=== PATIENT | female | born 1940 | race Caucasian/White ===

== ENCOUNTER → 2016-11-01 | Outpatient (CLI) | payer MEDICARE, BC ==
[2016-09-29 12:20] VITALS: BP 118/69
[~2016-11-01] MED LIST: ALLO100T PO; AMLO5TAB2 PO; ESOM40CA PO; GABA-585 PO; HYDR4TAB PO; HYDR50TA6 PO; LEVO75TA5 PO; METO100T11 PO; MIRT15TA PO; NITR0.4T SL; NITR1PAT11 TD; POTA20TA82 PO; THEO400T2 PO
--- NOTE | 2016-11-01 10:55 | RAD ---
Indication follow-up. History of lung malignancy.] Noncontrast imaging through the chest was performed and is compared to an examination 08/15/2016. Imaging through the upper abdomen is unremarkable. Coronary artery calcification is noted. There is a small right pleural effusion. Underlying emphysematous changes are noted. Significant volume loss in the right upper lobe persists similar to the previous exam. Right suprahilar mass or dense consolidation persists and appears similar. There is no evidence of distant metastatic disease. Degenerative changes are noted in the thoracic spine. IMPRESSION: Diminished aeration of the right upper lobe with an associated dense area of atelectasis or suprahilar soft tissue mass persists and appears similar to the previous exam. A significant change in the appearance of the chest relative to the prior exam is not seen PQRS Compliance Statement: One or more of the following individualized dose reduction techniques were utilized for this examination: 1. Automated exposure control 2. Adjustment of the mA and/or kV according to patient size 3. Use of iterative reconstruction technique
== END | disposition home or self-care (01) ==
LOC: CT 10:22
PROVIDERS: ATTEND Radiology Radiation Oncology
DX: C34.90 Malignant neoplasm of unspecified part of unspecified bronchus or lung (principal); Z85.118 Personal history of other malignant neoplasm of bronchus and lung; J90 Pleural effusion, not elsewhere classified
CPT/HCPCS: 71250

== ENCOUNTER 2016-11-02 14:23 | Inpatient (IN) | payer MEDICARE, BC ==
[~2016-11-02] VITALS: Ht 147.3 cm; Wt 44.0 kg
[~2016-11-02 14:23] MED LIST changes: -MIRT15TA PO
[2016-11-02] MEDS ORDERED: MIRT15TA PO (15:53)
[2016-11-02 16:51] LABS: BASO % 1 % (0-3); EOS % 2 % (0-3); HEMATOCRIT 32.8 % (36.0-47.0); HEMOGLOBIN 10.8 g/dL (12.0-15.5); LYMPH # 0.7 x10^3/uL (1.0-4.8); LYMPH % 12 % (24-48); MEAN CORPUSCULAR HEMOGLOBIN 35 pg (25-35); MEAN CORPUSCULAR HGB CONC 33 g/dL (31-37); MEAN CORPUSCULAR VOLUME 104 fL (79-100); MONO % 9 % (0-9); NEUT % 76 % (31-73); PLATELET COUNT 172 x10^3/uL (140-400); RED BLOOD COUNT 3.14 x10^6/uL (3.50-5.40); RED CELL DISTRIBUTION WIDTH 13.8 % (11.5-14.5); WHITE BLOOD COUNT 5.8 x10^3/uL (4.0-11.0)
[2016-11-02 17:06] LABS: ALBUMIN 3.6 g/dL (3.4-5.0); ALBUMIN/GLOBULIN RATIO 0.9 (1.0-1.7); CALCIUM 9.1 mg/dL (8.5-10.1); CREATININE 1.3 mg/dL (0.6-1.0); GFR 39.6; POTASSIUM 3.7 mmol/L (3.5-5.1); TOTAL BILIRUBIN 0.6 mg/dL (0.2-1.0); TOTAL PROTEIN 7.6 g/dL (6.4-8.2)
[2016-11-02] MEDS ORDERED: 0.9 % SODIUM CHLORIDE 10 ML DISP.SYRIN. IV PRN (18:45)
[2016-11-02] MEDS: POTASSIUM CL 20MEQ-0.45% NACL 1,000 ML IV SCH (19:15)
[2016-11-02 19:24] LABS: % SAT IRON 17 % (15-34); IRON,SERUM 40 ug/dL (50-170)
[2016-11-02 19:47] VITALS: BP 121/74
[2016-11-02] MEDS ORDERED: HYDROCODONE/APAP 5/325MG TABLET. PO PRN (20:45)
--- NOTE | 2016-11-02 21:10 | HP ---
ADMIT DATE: 11/02/2016 CHIEF COMPLAINT: Myxedema. HISTORY OF PRESENT ILLNESS: The patient is a 76-year-old woman who completed concurrent chemoradiation for stage 3 lung cancer in June of this year. She was presented for scheduled followup with Dr. Lopez today. On examination, the patient was quite confused. Unable to walk, was actually carried in by her . On further questioning, it became apparent that the patient had been seen by her primary care physician, Dr. Gray, who had obtained a TSH in September which was resulted at 172.8. The patient apparently had stopped taking all her medications after her dog in the late fall. The patient is therefore direct admitted to the hospital for further monitoring and evaluation as well as treatment. The daughter at bedside relates that the patient actually has not been eating in the past three days or so, barely drinking. Has been quite confused for many days now. She is not aware that the patient actually had a bowel movement in a while. The patient chronically complains of severe pain all over. The patient herself is unable to contribute to her history at all. PAST MEDICAL HISTORY: Hypothyroidism; nonsmall cell lung carcinoma stage 3, stable findings per repeat CT, status post concurrent chemoradiation, completed in June; depression; COPD; heart disease, followed by Dr. Arciniega. FAMILY HISTORY: Multiple family members with heart disease. SOCIAL HISTORY: Lives with her . Quit smoking two years ago. No toxic habits. ALLERGIES: No known drug allergies. MEDICATIONS: MAR reconciled with home medications. LABORATORY DATA: CBC with WBC of 5.8, hemoglobin 10.8 with an MCV of 104 and platelets of 172. Chemistries: BUN and creatinine of 29 and 1.3, actually better than her baseline creatinine at about 1.5-1.6. Electrolytes within normal limits. LFTs within normal, albumin at 3.6. CT of the chest on 11/01/2016 shows diminished aeration in the right upper lobe with associated dense area of atelectasis, a suprahilar soft tissue mass persisting, appears similar to previous exam. ASSESSMENT AND PLAN: The patient is a 76-year-old woman presenting with myxedema close to coma. She has been restarted on her thyroid medication at 75 mcg. Will evaluate for other end-organ damage including cardiac. Echo has been ordered. Dr. Arciniega will be consulted. For suspected dehydration, we will replete with IV fluids. The patient actually ate fairly well at supper here. Daughter was surprised. For her depression, Remeron will be continued. The patient has history of gout as well as osteoarthritis. home meds will be continued. Patient has macrocytic anemia, which is probably secondary to myxedema. Obtain Vitamin B12 and folate levels to rule out vitamin deficiency. SHAILESH LEIVA MD DR: KEATON/veda JOB#: [id number] / [id number] MONICA Muniz JAY MD MTDD
[2016-11-02] MEDS: GABAPENTIN 100 MG CAPSULE. PO SCH (21:51)
[2016-11-02] MEDS: HYDROMORPHONE 4 MG TABLET. PO PRN (21:51)
[2016-11-02] MEDS: MIRTAZAPINE 15 MG TABLET PO SCH (21:52)
[2016-11-02] MEDS: THEOPHYLLINE 200 MG PO SCH (21:52)
[2016-11-02 23:28] VITALS: BP 146/87
[2016-11-03] VITALS (7 sets, daily range): BP systolic 103–132; BP diastolic 65–90
[2016-11-03 04:54] LABS: BASO # 0.1 x10^3/uL (0.0-0.2); BASO % 1 % (0-3); EOS % 2 % (0-3); HEMATOCRIT 32.1 % (36.0-47.0); HEMOGLOBIN 10.4 g/dL (12.0-15.5); LYMPH # 1.1 x10^3/uL (1.0-4.8); LYMPH % 17 % (24-48); MEAN CORPUSCULAR HEMOGLOBIN 34 pg (25-35); MEAN CORPUSCULAR HGB CONC 33 g/dL (31-37); MEAN CORPUSCULAR VOLUME 105 fL (79-100); MONO % 10 % (0-9); NEUT % 70 % (31-73); PLATELET COUNT 172 x10^3/uL (140-400); RED BLOOD COUNT 3.05 x10^6/uL (3.50-5.40); RED CELL DISTRIBUTION WIDTH 13.5 % (11.5-14.5); WHITE BLOOD COUNT 6.7 x10^3/uL (4.0-11.0)
[2016-11-03] MEDS: POTASSIUM CL 20MEQ-0.45% NACL 1,000 ML IV SCH ×2 (05:15→20:07)
[2016-11-03 05:23] LABS: CALCIUM 8.6 mg/dL (8.5-10.1); CREATININE 1.3 mg/dL (0.6-1.0); GFR 39.6; POTASSIUM 3.7 mmol/L (3.5-5.1)
[2016-11-03] MEDS: LEVOTHYROXINE 75 MCG TABLET PO SCH ×2 (06:34→10:10)
[2016-11-03] MEDS: THEOPHYLLINE 200 MG PO SCH (10:09)
[2016-11-03] MEDS: ALLOPURINOL 100 MG TABLET. PO SCH (10:09)
[2016-11-03] MEDS: PANTOPRAZOLE 40 MG TABLET. PO SCH (10:10)
[2016-11-03] MEDS: GABAPENTIN 100 MG CAPSULE. PO SCH ×2 (10:10→21:00)
[2016-11-03] MEDS: HYDROCHLOROTHIAZIDE 25 MG TABLET PO SCH (10:10)
[2016-11-03] MEDS: AMLODIPINE BESYLATE 5 MG TABLET PO SCH (10:10)
[2016-11-03] MEDS: HYDROMORPHONE 4 MG TABLET. PO PRN ×2 (10:16→14:49)
--- NOTE | 2016-11-03 10:48 | PDOC2 ---
CONSULT Date of Consult Date of Consult DATE: 11/03/16 TIME: 10:19 Reason for Consult Reason for Consult: Evaluate for cardiac end organ damage from myxedema Referring Physician Referring Physician: Bessie Arcos MD Identification/Chief Complaint Chief Complaint Myxedema Coma History of Present Illness Reason for Visit: Patient is a 76 year old female with Hypothyroidism, stage 3 NSC Lung Cancer s/ p concurrent chemo/radiation completed in June, COPD, depression and Heart disease that presents after progressively worsening confusion and gait instability for 3 days. She was noted to have a TSH of 172.8 in September 2016 and reports she stopped taking her Synthroid after her dog passed in late fall. She denies any angina or chest discomfort, but does report some mild dyspnea, occasional lightheadedness, and excessive somnolence up to 20 hours a day. Family states she is markedly improved today and her mental status is near baseline, but still has some transient confusion and trouble finding words. Her only complaint today is pain where her portacath is located. Family also reports poor appetite for the past 3 weeks, but nursing reports she ate her entire meal last night. She denies any dyspnea today. Past Medical History Cardiovascular: CAD Pulmonary: COPD Heme/Onc: Cancer (Non Small Cell Lung Cancer s/p concurrent Chemo/radiation completed in June) Psych: Depression Endocrine: Hyperthyroidism Current Problem List Problem List Problems Medical Problems: (1) Myxedema coma Status: Acute Current Medications Current Medications Current Medications Sodium Chloride 3 ml 3 ml PRN DAILY PRN IV AFTER MEDS AND BLOOD DRAWS; Start at 18:45 Potassium Chloride/Sodium Chloride (KCl 20 Meq-0.45% Nacl) 1,000 ml @ 100 mls/ hr Q10H IV Last administered on 11/02/16 19:15; Start 11/02/16 at 19:15 Acetaminophen (Tylenol) 650 mg PRN Q6HRS PRN PO MILD PAIN / TEMP; Start at 18:45 Allopurinol (Zyloprim) 100 mg DAILY PO Last administered on 11/03/16 10:09; Start 11/03/16 at 09:00 Amlodipine Besylate (Norvasc) 5 mg DAILY PO Last administered on 11/03/16 10:10 ; Start 11/03/16 at 09:00 Gabapentin (Neurontin) 100 mg BID PO Last administered on 11/03/16 10:10; Start 11/02/16 at 21:00 Levothyroxine Sodium (Synthroid) 75 mcg DAILY07 PO Last administered on 10:10; Start 11/03/16 at 07:00 Mirtazapine (Remeron) 15 mg QHS PO Last administered on 11/02/16 21:52; Start 11/02/16 at 21:00 Pantoprazole Sodium (Protonix) 40 mg DAILYAC PO Last administered on 11/03/16 10:10; Start 11/03/16 at 07:30 Hydrochlorothiazide (Hydrodiuril) 25 mg DAILY PO Last administered on 11/03/16 10:10; Start 11/03/16 at 09:00 Theophylline (Theodur) 200 mg BID PO Last administered on 11/03/16 10:09; Start 11/02/16 at 21:00 Acetaminophen/ Hydrocodone Bitart (Lortab 5/325) 1 tab PRN Q6HRS PRN PO PAIN; Start 11/02/16 at 20:45; Status Cancel Hydromorphone HCl (Dilaudid) 4 mg PRN Q4HRS PRN PO PAIN Last administered on 10:16; Start 11/02/16 at 21:45 Active Scripts Active Reported Remeron (Mirtazapine) 15 Mg Tablet 1 Tab PO QHS Theophylline (Theophylline Anhydrous) 400 Mg Tablet.er 200 Mg PO TID Potassium Chloride 20 Meq Tablet.er 20 Meq PO BID Nexium Capsule (Esomeprazole Magnesium) 40 Mg Capsule.dr 1 Cap PO DAILY Levothyroxine Sodium 75 Mcg Tablet 1 Tab PO DAILY Hydromorphone Hcl 4 Mg Tablet 1 Tab PO QID Hydrochlorothiazide Tablet (Hydrochlorothiazide) 50 Mg Tablet 25 Mg PO DAILY Gabapentin 100 Mg Capsule 100 Mg PO BID Amlodipine Besylate 5 Mg Tablet 5 Mg PO DAILY Allopurinol 100 Mg Tablet 1 Tab PO BID Allergies Allergies: Coded Allergies: aspirin (Verified Allergy, Intermediate, 05/08/16) codeine (Verified Allergy, Intermediate, 05/08/16) methocarbamol (Verified Allergy, Intermediate, 05/08/16) morphine (Verified Allergy, Intermediate, 05/08/16) Morphine Sulfate ER 15 mg oxycodone (Verified Allergy, Intermediate, 05/08/16) sulfamethoxazole (Verified Allergy, Intermediate, 05/08/16) tramadol (Verified Allergy, Intermediate, 05/08/16) trimethoprim (Verified Allergy, Intermediate, 05/08/16) ROS Genitourinary: YES , YES , YES , YES , YES , YES , YES Physical Exam General: Alert, Cooperative HEENT: Atraumatic, PERRLA, Mucous membr. moist/pink, Other (No JVD) Lungs: Clear to auscultation, Normal air movement Heart: Regular rate, Normal S1, Normal S2, No murmurs Extremities: No clubbing, No cyanosis, No edema, Other (Lower extremities tender to palpation) Psych/Mental Status: Other (mild confusion and trouble finding words) Vitals VITALS Vital Signs Date Time Temp Pulse Resp B/P Pulse Ox O2 Delivery O2 Flow Rate FiO2 11/03/16 10:10 99 129/90 11/03/16 07:10 97.7 16 96 Room Air 97.7 Labs Labs Laboratory Tests Test 11/02/16 16:40 11/03/16 04:45 White Blood Count 5.8x10^3/uL (4.0-11.0) 6.7x10^3/uL (4.0-11.0) Red Blood Count 3.14x10^6/uL (3.50-5.40) 3.05x10^6/uL (3.50-5.40) Hemoglobin 10.8g/dL (12.0-15.5) 10.4g/dL (12.0-15.5) Hematocrit 32.8% (36.0-47.0) 32.1% (36.0-47.0) Mean Corpuscular Volume 104fL (79-100) 105fL (79-100) Mean Corpuscular Hemoglobin 35pg (25-35) 34pg (25-35) Mean Corpuscular Hemoglobin Concent 33g/dL (31-37) 33g/dL (31-37) Red Cell Distribution Width 13.8% (11.5-14.5) 13.5% (11.5-14.5) Platelet Count 172x10^3/uL (140-400) 172x10^3/uL (140-400) Neutrophils (%) (Auto) 76% (31-73) 70% (31-73) Lymphocytes (%) (Auto) 12% (24-48) 17% (24-48) Monocytes (%) (Auto) 9% (0-9) 10% (0-9) Eosinophils (%) (Auto) 2% (0-3) 2% (0-3) Basophils (%) (Auto) 1% (0-3) 1% (0-3) Neutrophils # (Auto) 4.4x10^3uL (1.8-7.7) 4.7x10^3uL (1.8-7.7) Lymphocytes # (Auto) 0.7x10^3/uL (1.0-4.8) 1.1x10^3/uL (1.0-4.8) Monocytes # (Auto) 0.5x10^3/uL (0.0-1.1) 0.7x10^3/uL (0.0-1.1) Eosinophils # (Auto) 0.1x10^3/uL (0.0-0.7) 0.2x10^3/uL (0.0-0.7) Basophils # (Auto) 0.0x10^3/uL (0.0-0.2) 0.1x10^3/uL (0.0-0.2) Sodium Level 139mmol/L (136-145) 141mmol/L (136-145) Potassium Level 3.7mmol/L (3.5-5.1) 3.7mmol/L (3.5-5.1) Chloride Level 101mmol/L (98-107) 102mmol/L (98-107) Carbon Dioxide Level 28mmol/L (21-32) 27mmol/L (21-32) Anion Gap 10 (6-14) 12 (6-14) Blood Urea Nitrogen 29mg/dL (7-20) 29mg/dL (7-20) Creatinine 1.3mg/dL (0.6-1.0) 1.3mg/dL (0.6-1.0) Estimated GFR (Cockcroft-Gault) 39.6 39.6 BUN/Creatinine Ratio 22 (6-20) Glucose Level 84mg/dL (70-99) 68mg/dL (70-99) Calcium Level 9.1mg/dL (8.5-10.1) 8.6mg/dL (8.5-10.1) Iron Level 40ug/dL (50-170) Total Iron Binding Capacity 239ug/dL (250-450) Iron Saturation 17% (15-34) Total Bilirubin 0.6mg/dL (0.2-1.0) Aspartate Amino Transf (AST/SGOT) 8U/L (15-37) Alanine Aminotransferase (ALT/SGPT) 13U/L (14-59) Alkaline Phosphatase 72U/L (46-116) Total Protein 7.6g/dL (6.4-8.2) Albumin 3.6g/dL (3.4-5.0) Albumin/Globulin Ratio 0.9 (1.0-1.7) Laboratory Tests Test 11/02/16 16:40 11/03/16 04:45 White Blood Count 5.8x10^3/uL (4.0-11.0) 6.7x10^3/uL (4.0-11.0) Red Blood Count 3.14x10^6/uL (3.50-5.40) 3.05x10^6/uL (3.50-5.40) Hemoglobin 10.8g/dL (12.0-15.5) 10.4g/dL (12.0-15.5) Hematocrit 32.8% (36.0-47.0) 32.1% (36.0-47.0) Mean Corpuscular Volume 104fL (79-100) 105fL (79-100) Mean Corpuscular Hemoglobin 35pg (25-35) 34pg (25-35) Mean Corpuscular Hemoglobin Concent 33g/dL (31-37) 33g/dL (31-37) Red Cell Distribution Width 13.8% (11.5-14.5) 13.5% (11.5-14.5) Platelet Count 172x10^3/uL (140-400) 172x10^3/uL (140-400) Neutrophils (%) (Auto) 76% (31-73) 70% (31-73) Lymphocytes (%) (Auto) 12% (24-48) 17% (24-48) Monocytes (%) (Auto) 9% (0-9) 10% (0-9) Eosinophils (%) (Auto) 2% (0-3) 2% (0-3) Basophils (%) (Auto) 1% (0-3) 1% (0-3) Neutrophils # (Auto) 4.4x10^3uL (1.8-7.7) 4.7x10^3uL (1.8-7.7) Lymphocytes # (Auto) 0.7x10^3/uL (1.0-4.8) 1.1x10^3/uL (1.0-4.8) Monocytes # (Auto) 0.5x10^3/uL (0.0-1.1) 0.7x10^3/uL (0.0-1.1) Eosinophils # (Auto) 0.1x10^3/uL (0.0-0.7) 0.2x10^3/uL (0.0-0.7) Basophils # (Auto) 0.0x10^3/uL (0.0-0.2) 0.1x10^3/uL (0.0-0.2) Sodium Level 139mmol/L (136-145) 141mmol/L (136-145) Potassium Level 3.7mmol/L (3.5-5.1) 3.7mmol/L (3.5-5.1) Chloride Level 101mmol/L (98-107) 102mmol/L (98-107) Carbon Dioxide Level 28mmol/L (21-32) 27mmol/L (21-32) Anion Gap 10 (6-14) 12 (6-14) Blood Urea Nitrogen 29mg/dL (7-20) 29mg/dL (7-20) Creatinine 1.3mg/dL (0.6-1.0) 1.3mg/dL (0.6-1.0) Estimated GFR (Cockcroft-Gault) 39.6 39.6 BUN/Creatinine Ratio 22 (6-20) Glucose Level 84mg/dL (70-99) 68mg/dL (70-99) Calcium Level 9.1mg/dL (8.5-10.1) 8.6mg/dL (8.5-10.1) Iron Level 40ug/dL (50-170) Total Iron Binding Capacity 239ug/dL (250-450) Iron Saturation 17% (15-34) Total Bilirubin 0.6mg/dL (0.2-1.0) Aspartate Amino Transf (AST/SGOT) 8U/L (15-37) Alanine Aminotransferase (ALT/SGPT) 13U/L (14-59) Alkaline Phosphatase 72U/L (46-116) Total Protein 7.6g/dL (6.4-8.2) Albumin 3.6g/dL (3.4-5.0) Albumin/Globulin Ratio 0.9 (1.0-1.7) Assessment/Plan Assessment/Plan Ms. Chauhan is a 76 year old female with a history of hypothyroidism, NSCLC s/p radition/chemo, CAD, COPD and depression who presents with 3 days of progressively worsened altered mental status and gait instability. My clinical impression is this is Altered Mental Status 2/2 to hypothyroidism as patient has not been fully obtunded and has not had any significant edema. She is currently compensating from a cardiac standpoint. I agree with the current plan of care. I recommend obtaining CT head w/ contrast to rule out metastases, ESR, T3 and free T4 Echo planned for today, will follow up Thank you very much for this consult, I am happy to participate in this patients care MYLES MACK MD Nov 03, 2016 10:48
--- NOTE | 2016-11-03 13:15 | RAD ---
Indication change in mental status. Confusion. Fall twice 3 days ago. Noncontrast images of the head were obtained and are compared to an examination 6 years earlier. The calvarium appears unremarkable and the visualized paranasal sinuses appear normal. There is no subdural or epidural hematoma. No mass or midline shift is seen. There is no hemorrhage. IMPRESSION: No acute or significant finding seen on noncontrast CT images of the head PQRS Compliance Statement: One or more of the following individualized dose reduction techniques were utilized for this examination: 1. Automated exposure control 2. Adjustment of the mA and/or kV according to patient size 3. Use of iterative reconstruction technique
--- NOTE | 2016-11-03 13:27 | RAD ---
Indication fall 2 days previously. Pain. Evaluate for potential rib fractures. An AP view of the chest was obtained as well as individual single views 2 the right and left ribs. Known pathology in the right hemithorax, referenced on the CT examination 11/01/2016, is reproduced. The heart and pulmonary vessels are within normal limits. Significant pleural fluid is not seen and there is no pneumothorax. Right Port-A-Cath is noted. Scoliosis is noted There is a fracture, which appears recent or acute, associated with the left ninth rib posterior laterally. There is irregularity associated with the 10th rib which has a chronic appearance and is probably reflective of old, healed, fracture. Additional finding associated with left ribs is not seen. No significant right rib anomaly is seen. IMPRESSION: Recent or acute fracture associated with the left ninth rib
--- NOTE | 2016-11-03 14:21 | PDOC ---
PROGRESS NOTES Chief Complaint Chief Complaint AMS, Weakness 1. Ams metabolic encephalopathy with severe hypothyroidism, low b12, lung Ca 2 Hypothyroidism; 3. nonsmall cell lung carcinoma stage 3 post chemo and RT 4. H/O cad 5. copd 6. depression 7. CKD 3 8. normacytic anemia 9./ acute traumatic left rib fx plan: 1. card, NEuro consult 2. cont home meds , repeat TSH, T4 3. ADD VITB12 VITD pending 4. PTOT 5 ortho consult 6. pain control dvt ppx Head CT neg for mets, doubt it, defer to neuro if need MRI FAMILY refuse HOSPICE consult , refuse SNF History of Present Illness History of Present Illness very weak more awake as per family, but respond very slow to me pt not taking meds for a while, "wants to " as per nurse, but family refuse hospice Vitals Vitals Vital Signs Date Time Temp Pulse Resp B/P Pulse Ox O2 Delivery O2 Flow Rate FiO2 11/03/16 11:03 97.8 106 16 130/90 96 Room Air 97.8 Physical Exam Physical Exam aox2, person, place General: Alert, Cooperative Heart: Regular rate, Normal S1, Normal S2, No murmurs Lungs: Clear Abdomen: Normal bowel sounds, Soft, Other (left abd tenderness) Extremities: No clubbing, No cyanosis, No edema, Other (Lower extremities tender to palpation) Labs LABS Laboratory Tests Test 11/02/16 16:40 11/03/16 04:45 White Blood Count 5.8x10^3/uL (4.0-11.0) 6.7x10^3/uL (4.0-11.0) Red Blood Count 3.14x10^6/uL (3.50-5.40) 3.05x10^6/uL (3.50-5.40) Hemoglobin 10.8g/dL (12.0-15.5) 10.4g/dL (12.0-15.5) Hematocrit 32.8% (36.0-47.0) 32.1% (36.0-47.0) Mean Corpuscular Volume 104fL (79-100) 105fL (79-100) Mean Corpuscular Hemoglobin 35pg (25-35) 34pg (25-35) Mean Corpuscular Hemoglobin Concent 33g/dL (31-37) 33g/dL (31-37) Red Cell Distribution Width 13.8% (11.5-14.5) 13.5% (11.5-14.5) Platelet Count 172x10^3/uL (140-400) 172x10^3/uL (140-400) Neutrophils (%) (Auto) 76% (31-73) 70% (31-73) Lymphocytes (%) (Auto) 12% (24-48) 17% (24-48) Monocytes (%) (Auto) 9% (0-9) 10% (0-9) Eosinophils (%) (Auto) 2% (0-3) 2% (0-3) Basophils (%) (Auto) 1% (0-3) 1% (0-3) Neutrophils # (Auto) 4.4x10^3uL (1.8-7.7) 4.7x10^3uL (1.8-7.7) Lymphocytes # (Auto) 0.7x10^3/uL (1.0-4.8) 1.1x10^3/uL (1.0-4.8) Monocytes # (Auto) 0.5x10^3/uL (0.0-1.1) 0.7x10^3/uL (0.0-1.1) Eosinophils # (Auto) 0.1x10^3/uL (0.0-0.7) 0.2x10^3/uL (0.0-0.7) Basophils # (Auto) 0.0x10^3/uL (0.0-0.2) 0.1x10^3/uL (0.0-0.2) Sodium Level 139mmol/L (136-145) 141mmol/L (136-145) Potassium Level 3.7mmol/L (3.5-5.1) 3.7mmol/L (3.5-5.1) Chloride Level 101mmol/L (98-107) 102mmol/L (98-107) Carbon Dioxide Level 28mmol/L (21-32) 27mmol/L (21-32) Anion Gap 10 (6-14) 12 (6-14) Blood Urea Nitrogen 29mg/dL (7-20) 29mg/dL (7-20) Creatinine 1.3mg/dL (0.6-1.0) 1.3mg/dL (0.6-1.0) Estimated GFR (Cockcroft-Gault) 39.6 39.6 BUN/Creatinine Ratio 22 (6-20) Glucose Level 84mg/dL (70-99) 68mg/dL (70-99) Calcium Level 9.1mg/dL (8.5-10.1) 8.6mg/dL (8.5-10.1) Iron Level 40ug/dL (50-170) Total Iron Binding Capacity 239ug/dL (250-450) Iron Saturation 17% (15-34) Total Bilirubin 0.6mg/dL (0.2-1.0) Aspartate Amino Transf (AST/SGOT) 8U/L (15-37) Alanine Aminotransferase (ALT/SGPT) 13U/L (14-59) Alkaline Phosphatase 72U/L (46-116) Total Protein 7.6g/dL (6.4-8.2) Albumin 3.6g/dL (3.4-5.0) Albumin/Globulin Ratio 0.9 (1.0-1.7) Vitamin B12 Level 346pg/mL (211-946) Folic Acid (LAB) 18.0ng/mL (>3.0) Review of Systems Review of Systems no fever, chills, sob or chest pain Assessment and Plan Assessmemt and Plan Problems Medical Problems: (1) Myxedema coma Status: Acute Problems: Comment Review of Relevant I have reviewed the following items shirin (where applicable) has been applied. Labs Laboratory Tests Test 11/02/16 16:40 11/03/16 04:45 White Blood Count 5.8x10^3/uL (4.0-11.0) 6.7x10^3/uL (4.0-11.0) Red Blood Count 3.14x10^6/uL (3.50-5.40) 3.05x10^6/uL (3.50-5.40) Hemoglobin 10.8g/dL (12.0-15.5) 10.4g/dL (12.0-15.5) Hematocrit 32.8% (36.0-47.0) 32.1% (36.0-47.0) Mean Corpuscular Volume 104fL (79-100) 105fL (79-100) Mean Corpuscular Hemoglobin 35pg (25-35) 34pg (25-35) Mean Corpuscular Hemoglobin Concent 33g/dL (31-37) 33g/dL (31-37) Red Cell Distribution Width 13.8% (11.5-14.5) 13.5% (11.5-14.5) Platelet Count 172x10^3/uL (140-400) 172x10^3/uL (140-400) Neutrophils (%) (Auto) 76% (31-73) 70% (31-73) Lymphocytes (%) (Auto) 12% (24-48) 17% (24-48) Monocytes (%) (Auto) 9% (0-9) 10% (0-9) Eosinophils (%) (Auto) 2% (0-3) 2% (0-3) Basophils (%) (Auto) 1% (0-3) 1% (0-3) Neutrophils # (Auto) 4.4x10^3uL (1.8-7.7) 4.7x10^3uL (1.8-7.7) Lymphocytes # (Auto) 0.7x10^3/uL (1.0-4.8) 1.1x10^3/uL (1.0-4.8) Monocytes # (Auto) 0.5x10^3/uL (0.0-1.1) 0.7x10^3/uL (0.0-1.1) Eosinophils # (Auto) 0.1x10^3/uL (0.0-0.7) 0.2x10^3/uL (0.0-0.7) Basophils # (Auto) 0.0x10^3/uL (0.0-0.2) 0.1x10^3/uL (0.0-0.2) Sodium Level 139mmol/L (136-145) 141mmol/L (136-145) Potassium Level 3.7mmol/L (3.5-5.1) 3.7mmol/L (3.5-5.1) Chloride Level 101mmol/L (98-107) 102mmol/L (98-107) Carbon Dioxide Level 28mmol/L (21-32) 27mmol/L (21-32) Anion Gap 10 (6-14) 12 (6-14) Blood Urea Nitrogen 29mg/dL (7-20) 29mg/dL (7-20) Creatinine 1.3mg/dL (0.6-1.0) 1.3mg/dL (0.6-1.0) Estimated GFR (Cockcroft-Gault) 39.6 39.6 BUN/Creatinine Ratio 22 (6-20) Glucose Level 84mg/dL (70-99) 68mg/dL (70-99) Calcium Level 9.1mg/dL (8.5-10.1) 8.6mg/dL (8.5-10.1) Iron Level 40ug/dL (50-170) Total Iron Binding Capacity 239ug/dL (250-450) Iron Saturation 17% (15-34) Total Bilirubin 0.6mg/dL (0.2-1.0) Aspartate Amino Transf (AST/SGOT) 8U/L (15-37) Alanine Aminotransferase (ALT/SGPT) 13U/L (14-59) Alkaline Phosphatase 72U/L (46-116) Total Protein 7.6g/dL (6.4-8.2) Albumin 3.6g/dL (3.4-5.0) Albumin/Globulin Ratio 0.9 (1.0-1.7) Vitamin B12 Level 346pg/mL (211-946) Folic Acid (LAB) 18.0ng/mL (>3.0) Laboratory Tests Test 11/02/16 16:40 11/03/16 04:45 White Blood Count 5.8x10^3/uL (4.0-11.0) 6.7x10^3/uL (4.0-11.0) Red Blood Count 3.14x10^6/uL (3.50-5.40) 3.05x10^6/uL (3.50-5.40) Hemoglobin 10.8g/dL (12.0-15.5) 10.4g/dL (12.0-15.5) Hematocrit 32.8% (36.0-47.0) 32.1% (36.0-47.0) Mean Corpuscular Volume 104fL (79-100) 105fL (79-100) Mean Corpuscular Hemoglobin 35pg (25-35) 34pg (25-35) Mean Corpuscular Hemoglobin Concent 33g/dL (31-37) 33g/dL (31-37) Red Cell Distribution Width 13.8% (11.5-14.5) 13.5% (11.5-14.5) Platelet Count 172x10^3/uL (140-400) 172x10^3/uL (140-400) Neutrophils (%) (Auto) 76% (31-73) 70% (31-73) Lymphocytes (%) (Auto) 12% (24-48) 17% (24-48) Monocytes (%) (Auto) 9% (0-9) 10% (0-9) Eosinophils (%) (Auto) 2% (0-3) 2% (0-3) Basophils (%) (Auto) 1% (0-3) 1% (0-3) Neutrophils # (Auto) 4.4x10^3uL (1.8-7.7) 4.7x10^3uL (1.8-7.7) Lymphocytes # (Auto) 0.7x10^3/uL (1.0-4.8) 1.1x10^3/uL (1.0-4.8) Monocytes # (Auto) 0.5x10^3/uL (0.0-1.1) 0.7x10^3/uL (0.0-1.1) Eosinophils # (Auto) 0.1x10^3/uL (0.0-0.7) 0.2x10^3/uL (0.0-0.7) Basophils # (Auto) 0.0x10^3/uL (0.0-0.2) 0.1x10^3/uL (0.0-0.2) Sodium Level 139mmol/L (136-145) 141mmol/L (136-145) Potassium Level 3.7mmol/L (3.5-5.1) 3.7mmol/L (3.5-5.1) Chloride Level 101mmol/L (98-107) 102mmol/L (98-107) Carbon Dioxide Level 28mmol/L (21-32) 27mmol/L (21-32) Anion Gap 10 (6-14) 12 (6-14) Blood Urea Nitrogen 29mg/dL (7-20) 29mg/dL (7-20) Creatinine 1.3mg/dL (0.6-1.0) 1.3mg/dL (0.6-1.0) Estimated GFR (Cockcroft-Gault) 39.6 39.6 BUN/Creatinine Ratio 22 (6-20) Glucose Level 84mg/dL (70-99) 68mg/dL (70-99) Calcium Level 9.1mg/dL (8.5-10.1) 8.6mg/dL (8.5-10.1) Iron Level 40ug/dL (50-170) Total Iron Binding Capacity 239ug/dL (250-450) Iron Saturation 17% (15-34) Total Bilirubin 0.6mg/dL (0.2-1.0) Aspartate Amino Transf (AST/SGOT) 8U/L (15-37) Alanine Aminotransferase (ALT/SGPT) 13U/L (14-59) Alkaline Phosphatase 72U/L (46-116) Total Protein 7.6g/dL (6.4-8.2) Albumin 3.6g/dL (3.4-5.0) Albumin/Globulin Ratio 0.9 (1.0-1.7) Vitamin B12 Level 346pg/mL (211-946) Folic Acid (LAB) 18.0ng/mL (>3.0) Medications Current Medications Sodium Chloride 3 ml 3 ml PRN DAILY PRN IV AFTER MEDS AND BLOOD DRAWS; Start at 18:45 Potassium Chloride/Sodium Chloride (KCl 20 Meq-0.45% Nacl) 1,000 ml @ 100 mls/ hr Q10H IV Last administered on 11/02/16 19:15; Start 11/02/16 at 19:15 Acetaminophen (Tylenol) 650 mg PRN Q6HRS PRN PO MILD PAIN / TEMP; Start at 18:45 Allopurinol (Zyloprim) 100 mg DAILY PO Last administered on 11/03/16 10:09; Start 11/03/16 at 09:00 Amlodipine Besylate (Norvasc) 5 mg DAILY PO Last administered on 11/03/16 10:10 ; Start 11/03/16 at 09:00 Gabapentin (Neurontin) 100 mg BID PO Last administered on 11/03/16 10:10; Start 11/02/16 at 21:00 Levothyroxine Sodium (Synthroid) 75 mcg DAILY07 PO Last administered on 10:10; Start 11/03/16 at 07:00 Mirtazapine (Remeron) 15 mg QHS PO Last administered on 11/02/16 21:52; Start 11/02/16 at 21:00 Pantoprazole Sodium (Protonix) 40 mg DAILYAC PO Last administered on 11/03/16 10:10; Start 11/03/16 at 07:30 Hydrochlorothiazide (Hydrodiuril) 25 mg DAILY PO Last administered on 11/03/16 10:10; Start 11/03/16 at 09:00 Theophylline (Theodur) 200 mg BID PO Last administered on 11/03/16 10:09; Start 11/02/16 at 21:00; Stop 11/03/16 at 14:02; Status DC Acetaminophen/ Hydrocodone Bitart (Lortab 5/325) 1 tab PRN Q6HRS PRN PO PAIN; Start 11/02/16 at 20:45; Status Cancel Hydromorphone HCl (Dilaudid) 4 mg PRN Q4HRS PRN PO PAIN Last administered on 10:16; Start 11/02/16 at 21:45 Cyanocobalamin (Vitamin B-12) 1,000 mcg DAILY PO ; Start 11/03/16 at 12:30 Enoxaparin Sodium (Lovenox 30mg Syringe) 30 mg DAILY SQ ; Start 11/03/16 at 12:30 Theophylline 130 mg Q8HRS PO ; Start 11/03/16 at 22:00 Active Scripts Active Reported Remeron (Mirtazapine) 15 Mg Tablet 1 Tab PO QHS Theophylline (Theophylline Anhydrous) 400 Mg Tablet.er 200 Mg PO TID Potassium Chloride 20 Meq Tablet.er 20 Meq PO BID Nexium Capsule (Esomeprazole Magnesium) 40 Mg Capsule.dr 1 Cap PO DAILY Levothyroxine Sodium 75 Mcg Tablet 1 Tab PO DAILY Hydromorphone Hcl 4 Mg Tablet 1 Tab PO QID Hydrochlorothiazide Tablet (Hydrochlorothiazide) 50 Mg Tablet 25 Mg PO DAILY Gabapentin 100 Mg Capsule 100 Mg PO BID Amlodipine Besylate 5 Mg Tablet 5 Mg PO DAILY Allopurinol 100 Mg Tablet 1 Tab PO BID Vitals/I & O Vital Sign - Last 24 Hours 11/02/16 11/02/16 11/02/16 11/02/16 17:48 19:47 20:00 23:28 Temp 98.0 98.3 98.0 98.3 Pulse 103 101 Resp 17 16 B/P 121/74 146/87 Pulse Ox 94 94 O2 Delivery Room Air Room Air Room Air Room Air 11/03/16 11/03/16 11/03/16 11/03/16 02:48 07:10 08:00 10:10 Temp 97.4 97.7 97.4 97.7 Pulse 94 99 99 Resp 16 16 B/P 132/74 129/90 129/90 Pulse Ox 93 96 O2 Delivery Room Air Room Air Room Air 11/03/16 11:03 Temp 97.8 97.8 Pulse 106 Resp 16 B/P 130/90 Pulse Ox 96 O2 Delivery Room Air Intake and Output 11/02/16 11/02/16 11/03/16 15:00 23:00 07:00 Intake Total 0 ml 270 ml Balance 0 ml 270 ml GEORGE BELL MD Nov 03, 2016 14:21
[2016-11-03] MEDS: CYANOCOBALAMIN (VITAMIN B-12) 1,000 MCG TABLET. PO SCH (14:49)
[2016-11-03] MEDS: ENOXAPARIN 30 MG/0.3 ML DISP.SYRIN. SQ SCH (14:57)
[2016-11-03] MEDS: MIRTAZAPINE 15 MG TABLET PO SCH (21:00)
[2016-11-03] MEDS: THEOPHYLLINE 80 MG/15 ML PO SCH (22:00)
[2016-11-04] MEDS: POTASSIUM CL 20MEQ-0.45% NACL 1,000 ML IV SCH ×2 (05:27→14:16)
[2016-11-04] MEDS: THEOPHYLLINE 80 MG/15 ML PO SCH ×3 (06:26→22:00)
[2016-11-04 07:00] VITALS: BP 144/87
[2016-11-04 07:51] LABS: BASO # 0.1 x10^3/uL (0.0-0.2); BASO % 1 % (0-3); EOS % 2 % (0-3); HEMATOCRIT 30.3 % (36.0-47.0); HEMOGLOBIN 9.9 g/dL (12.0-15.5); LYMPH # 0.6 x10^3/uL (1.0-4.8); LYMPH % 11 % (24-48); MEAN CORPUSCULAR HEMOGLOBIN 34 pg (25-35); MEAN CORPUSCULAR HGB CONC 33 g/dL (31-37); MEAN CORPUSCULAR VOLUME 106 fL (79-100); MONO % 9 % (0-9); NEUT % 77 % (31-73); PLATELET COUNT 179 x10^3/uL (140-400); RED BLOOD COUNT 2.87 x10^6/uL (3.50-5.40); RED CELL DISTRIBUTION WIDTH 13.4 % (11.5-14.5); WHITE BLOOD COUNT 5.6 x10^3/uL (4.0-11.0)
[2016-11-04 08:09] LABS: CALCIUM 8.8 mg/dL (8.5-10.1); CREATININE 1.4 mg/dL (0.6-1.0); GFR 36.4; POTASSIUM 3.7 mmol/L (3.5-5.1)
[2016-11-04] MEDS: HYDROMORPHONE 4 MG TABLET. PO PRN ×3 (08:19→20:54)
[2016-11-04] MEDS: CYANOCOBALAMIN (VITAMIN B-12) 1,000 MCG TABLET. PO SCH (08:19)
[2016-11-04] MEDS: PANTOPRAZOLE 40 MG TABLET. PO SCH (08:19)
[2016-11-04] MEDS: ALLOPURINOL 100 MG TABLET. PO SCH (08:20)
[2016-11-04] MEDS: HYDROCHLOROTHIAZIDE 25 MG TABLET PO SCH (08:20)
[2016-11-04] MEDS: GABAPENTIN 100 MG CAPSULE. PO SCH ×2 (08:20→19:54)
[2016-11-04] MEDS: AMLODIPINE BESYLATE 5 MG TABLET PO SCH (08:20)
[2016-11-04 08:24] LABS: FREE T4 0.75 ng/dL (0.76-1.46)
[2016-11-04] MEDS: ENOXAPARIN 30 MG/0.3 ML DISP.SYRIN. SQ SCH (08:27)
--- NOTE | 2016-11-04 09:27 | RAD ---
Bilateral RIBS 2 views each. History: Patient fell, rib fractures AP and oblique views were taken of the left ribs. There are fractures of the posterior lateral left eighth, ninth, and possibly 10th ribs. There is no pneumothorax or pleural effusion. There is thoracolumbar scoliosis. There is a Port-A-Cath on the right. Heart is normal in size. AP and oblique views were taken of the right ribs. There is right apical pleural thickening and volume loss in the right upper lobe without change in the recent studies. A new rib fracture is not identified on the right. Impression: 1. Left rib fractures. 2. No pneumothorax or effusion. 3. Right upper lobe atelectasis and mass without change.
[2016-11-04 11:00] VITALS: BP 107/63
--- NOTE | 2016-11-04 11:10 | PDOC ---
PROGRESS NOTES Chief Complaint Chief Complaint AMS, Weakness ASSESSMENT AND PLAN: 1. AMS: metabolic encephalopathy with severe hypothyroidism, low b12: improving 2. Hypothyroidism: repletion restarted. T4 low normal now 3. NSCLC, stage 3 post chemo and RT: stable by restaging CT this week 4. CAD: no acute issues. cont home meds 5. Asthma: no respir issues. nebs PRN, theophylline 6. CKD3: stable 7. Macrocytic anemia: 2/2 hypothyroidism; borderline low B12, on PO repletion 8. (Sub) acute 9L rib fx: eval for osteoporosis. vit D level pending. start Ca/VitD 9. Depression: on remeron 10. OA: s/p back surgeries; on chronic narcotics 11. Prophylaxis: lovenox, PPI 12. Dispo: rehab when mentally improved Vitals Vitals Vital Signs Date Time Temp Pulse Resp B/P Pulse Ox O2 Delivery O2 Flow Rate FiO2 11/04/16 08:20 100 144/87 11/04/16 08:00 Room Air 11/04/16 07:00 98.2 18 97 98.2 Physical Exam Physical Exam aox2, person, place General: Alert, Cooperative Heart: Regular rate, Normal S1, Normal S2, No murmurs Lungs: Clear Abdomen: Normal bowel sounds, Soft, Other (left abd tenderness) Extremities: No clubbing, No cyanosis, No edema, Other (Lower extremities tender to palpation) Labs LABS Laboratory Tests Test 11/04/16 07:40 White Blood Count 5.6x10^3/uL (4.0-11.0) Red Blood Count 2.87x10^6/uL (3.50-5.40) Hemoglobin 9.9g/dL (12.0-15.5) Hematocrit 30.3% (36.0-47.0) Mean Corpuscular Volume 106fL (79-100) Mean Corpuscular Hemoglobin 34pg (25-35) Mean Corpuscular Hemoglobin Concent 33g/dL (31-37) Red Cell Distribution Width 13.4% (11.5-14.5) Platelet Count 179x10^3/uL (140-400) Neutrophils (%) (Auto) 77% (31-73) Lymphocytes (%) (Auto) 11% (24-48) Monocytes (%) (Auto) 9% (0-9) Eosinophils (%) (Auto) 2% (0-3) Basophils (%) (Auto) 1% (0-3) Neutrophils # (Auto) 4.3x10^3uL (1.8-7.7) Lymphocytes # (Auto) 0.6x10^3/uL (1.0-4.8) Monocytes # (Auto) 0.5x10^3/uL (0.0-1.1) Eosinophils # (Auto) 0.1x10^3/uL (0.0-0.7) Basophils # (Auto) 0.1x10^3/uL (0.0-0.2) Erythrocyte Sedimentation Rate 48 (0-25) Sodium Level 139mmol/L (136-145) Potassium Level 3.7mmol/L (3.5-5.1) Chloride Level 103mmol/L (98-107) Carbon Dioxide Level 26mmol/L (21-32) Anion Gap 10 (6-14) Blood Urea Nitrogen 20mg/dL (7-20) Creatinine 1.4mg/dL (0.6-1.0) Estimated GFR (Cockcroft-Gault) 36.4 Glucose Level 74mg/dL (70-99) Calcium Level 8.8mg/dL (8.5-10.1) Thyroid Stimulating Hormone (TSH) 89.995uIU/mL (0.358-3.74) Free Thyroxine 0.75ng/dL (0.76-1.46) Free Triiodothyronine (T3) pg/mL 0.91pg/mL (2.18-3.98) Review of Systems Review of Systems sleeping, wakes to tactile stimuli. pain controlled (w/ home dilaudid) Comment Review of Relevant I have reviewed the following items shirin (where applicable) has been applied. Labs Laboratory Tests Test 11/02/16 16:40 11/03/16 04:45 11/04/16 07:40 White Blood Count 5.8x10^3/uL (4.0-11.0) 6.7x10^3/uL (4.0-11.0) 5.6x10^3/uL (4.0-11.0) Red Blood Count 3.14x10^6/uL (3.50-5.40) 3.05x10^6/uL (3.50-5.40) 2.87x10^6/uL (3.50-5.40) Hemoglobin 10.8g/dL (12.0-15.5) 10.4g/dL (12.0-15.5) 9.9g/dL (12.0-15.5) Hematocrit 32.8% (36.0-47.0) 32.1% (36.0-47.0) 30.3% (36.0-47.0) Mean Corpuscular Volume 104fL (79-100) 105fL (79-100) 106fL (79-100) Mean Corpuscular Hemoglobin 35pg (25-35) 34pg (25-35) 34pg (25-35) Mean Corpuscular Hemoglobin Concent 33g/dL (31-37) 33g/dL (31-37) 33g/dL (31-37) Red Cell Distribution Width 13.8% (11.5-14.5) 13.5% (11.5-14.5) 13.4% (11.5-14.5) Platelet Count 172x10^3/uL (140-400) 172x10^3/uL (140-400) 179x10^3/uL (140-400) Neutrophils (%) (Auto) 76% (31-73) 70% (31-73) 77% (31-73) Lymphocytes (%) (Auto) 12% (24-48) 17% (24-48) 11% (24-48) Monocytes (%) (Auto) 9% (0-9) 10% (0-9) 9% (0-9) Eosinophils (%) (Auto) 2% (0-3) 2% (0-3) 2% (0-3) Basophils (%) (Auto) 1% (0-3) 1% (0-3) 1% (0-3) Neutrophils # (Auto) 4.4x10^3uL (1.8-7.7) 4.7x10^3uL (1.8-7.7) 4.3x10^3uL (1.8-7.7) Lymphocytes # (Auto) 0.7x10^3/uL (1.0-4.8) 1.1x10^3/uL (1.0-4.8) 0.6x10^3/uL (1.0-4.8) Monocytes # (Auto) 0.5x10^3/uL (0.0-1.1) 0.7x10^3/uL (0.0-1.1) 0.5x10^3/uL (0.0-1.1) Eosinophils # (Auto) 0.1x10^3/uL (0.0-0.7) 0.2x10^3/uL (0.0-0.7) 0.1x10^3/uL (0.0-0.7) Basophils # (Auto) 0.0x10^3/uL (0.0-0.2) 0.1x10^3/uL (0.0-0.2) 0.1x10^3/uL (0.0-0.2) Sodium Level 139mmol/L (136-145) 141mmol/L (136-145) 139mmol/L (136-145) Potassium Level 3.7mmol/L (3.5-5.1) 3.7mmol/L (3.5-5.1) 3.7mmol/L (3.5-5.1) Chloride Level 101mmol/L (98-107) 102mmol/L (98-107) 103mmol/L (98-107) Carbon Dioxide Level 28mmol/L (21-32) 27mmol/L (21-32) 26mmol/L (21-32) Anion Gap 10 (6-14) 12 (6-14) 10 (6-14) Blood Urea Nitrogen 29mg/dL (7-20) 29mg/dL (7-20) 20mg/dL (7-20) Creatinine 1.3mg/dL (0.6-1.0) 1.3mg/dL (0.6-1.0) 1.4mg/dL (0.6-1.0) Estimated GFR (Cockcroft-Gault) 39.6 39.6 36.4 BUN/Creatinine Ratio 22 (6-20) Glucose Level 84mg/dL (70-99) 68mg/dL (70-99) 74mg/dL (70-99) Calcium Level 9.1mg/dL (8.5-10.1) 8.6mg/dL (8.5-10.1) 8.8mg/dL (8.5-10.1) Iron Level 40ug/dL (50-170) Total Iron Binding Capacity 239ug/dL (250-450) Iron Saturation 17% (15-34) Total Bilirubin 0.6mg/dL (0.2-1.0) Aspartate Amino Transf (AST/SGOT) 8U/L (15-37) Alanine Aminotransferase (ALT/SGPT) 13U/L (14-59) Alkaline Phosphatase 72U/L (46-116) Total Protein 7.6g/dL (6.4-8.2) Albumin 3.6g/dL (3.4-5.0) Albumin/Globulin Ratio 0.9 (1.0-1.7) Vitamin B12 Level 346pg/mL (211-946) Folic Acid (LAB) 18.0ng/mL (>3.0) Erythrocyte Sedimentation Rate 48 (0-25) Thyroid Stimulating Hormone (TSH) 89.995uIU/mL (0.358-3.74) Free Thyroxine 0.75ng/dL (0.76-1.46) Free Triiodothyronine (T3) pg/mL 0.91pg/mL (2.18-3.98) Laboratory Tests Test 11/04/16 07:40 White Blood Count 5.6x10^3/uL (4.0-11.0) Red Blood Count 2.87x10^6/uL (3.50-5.40) Hemoglobin 9.9g/dL (12.0-15.5) Hematocrit 30.3% (36.0-47.0) Mean Corpuscular Volume 106fL (79-100) Mean Corpuscular Hemoglobin 34pg (25-35) Mean Corpuscular Hemoglobin Concent 33g/dL (31-37) Red Cell Distribution Width 13.4% (11.5-14.5) Platelet Count 179x10^3/uL (140-400) Neutrophils (%) (Auto) 77% (31-73) Lymphocytes (%) (Auto) 11% (24-48) Monocytes (%) (Auto) 9% (0-9) Eosinophils (%) (Auto) 2% (0-3) Basophils (%) (Auto) 1% (0-3) Neutrophils # (Auto) 4.3x10^3uL (1.8-7.7) Lymphocytes # (Auto) 0.6x10^3/uL (1.0-4.8) Monocytes # (Auto) 0.5x10^3/uL (0.0-1.1) Eosinophils # (Auto) 0.1x10^3/uL (0.0-0.7) Basophils # (Auto) 0.1x10^3/uL (0.0-0.2) Erythrocyte Sedimentation Rate 48 (0-25) Sodium Level 139mmol/L (136-145) Potassium Level 3.7mmol/L (3.5-5.1) Chloride Level 103mmol/L (98-107) Carbon Dioxide Level 26mmol/L (21-32) Anion Gap 10 (6-14) Blood Urea Nitrogen 20mg/dL (7-20) Creatinine 1.4mg/dL (0.6-1.0) Estimated GFR (Cockcroft-Gault) 36.4 Glucose Level 74mg/dL (70-99) Calcium Level 8.8mg/dL (8.5-10.1) Thyroid Stimulating Hormone (TSH) 89.995uIU/mL (0.358-3.74) Free Thyroxine 0.75ng/dL (0.76-1.46) Free Triiodothyronine (T3) pg/mL 0.91pg/mL (2.18-3.98) Medications Current Medications Sodium Chloride 3 ml 3 ml PRN DAILY PRN IV AFTER MEDS AND BLOOD DRAWS; Start at 18:45 Potassium Chloride/Sodium Chloride (KCl 20 Meq-0.45% Nacl) 1,000 ml @ 100 mls/ hr Q10H IV Last administered on 11/04/16 05:27; Start 11/02/16 at 19:15 Acetaminophen (Tylenol) 650 mg PRN Q6HRS PRN PO MILD PAIN / TEMP; Start at 18:45 Allopurinol (Zyloprim) 100 mg DAILY PO Last administered on 11/04/16 08:20; Start 11/03/16 at 09:00 Amlodipine Besylate (Norvasc) 5 mg DAILY PO Last administered on 11/04/16 08:20 ; Start 11/03/16 at 09:00 Gabapentin (Neurontin) 100 mg BID PO Last administered on 11/04/16 08:20; Start 11/02/16 at 21:00 Levothyroxine Sodium (Synthroid) 75 mcg DAILY07 PO Last administered on 10:10; Start 11/03/16 at 07:00 Mirtazapine (Remeron) 15 mg QHS PO Last administered on 11/03/16 21:00; Start 11/02/16 at 21:00 Pantoprazole Sodium (Protonix) 40 mg DAILYAC PO Last administered on 11/04/16 08:19; Start 11/03/16 at 07:30 Hydrochlorothiazide (Hydrodiuril) 25 mg DAILY PO Last administered on 11/04/16 08:20; Start 11/03/16 at 09:00 Theophylline (Theodur) 200 mg BID PO Last administered on 11/03/16 10:09; Start 11/02/16 at 21:00; Stop 11/03/16 at 14:02; Status DC Acetaminophen/ Hydrocodone Bitart (Lortab 5/325) 1 tab PRN Q6HRS PRN PO PAIN; Start 11/02/16 at 20:45; Status Cancel Hydromorphone HCl (Dilaudid) 4 mg PRN Q4HRS PRN PO PAIN Last administered on 08:19; Start 11/02/16 at 21:45 Cyanocobalamin (Vitamin B-12) 1,000 mcg DAILY PO Last administered on 11/04/16 08:19; Start 11/03/16 at 12:30 Enoxaparin Sodium (Lovenox 30mg Syringe) 30 mg DAILY SQ Last administered on 08:27; Start 11/03/16 at 12:30 Theophylline 130 mg Q8HRS PO Last administered on 11/04/16 06:26; Start at 22:00 Active Scripts Active Reported Remeron (Mirtazapine) 15 Mg Tablet 1 Tab PO QHS Theophylline (Theophylline Anhydrous) 400 Mg Tablet.er 200 Mg PO TID Potassium Chloride 20 Meq Tablet.er 20 Meq PO BID Nexium Capsule (Esomeprazole Magnesium) 40 Mg Capsule.dr 1 Cap PO DAILY Levothyroxine Sodium 75 Mcg Tablet 1 Tab PO DAILY Hydromorphone Hcl 4 Mg Tablet 1 Tab PO QID Hydrochlorothiazide Tablet (Hydrochlorothiazide) 50 Mg Tablet 25 Mg PO DAILY Gabapentin 100 Mg Capsule 100 Mg PO BID Amlodipine Besylate 5 Mg Tablet 5 Mg PO DAILY Allopurinol 100 Mg Tablet 1 Tab PO BID Vitals/I & O Vital Sign - Last 24 Hours 11/03/16 11/03/16 11/03/16 11/03/16 11:03 14:35 17:45 19:00 Temp 97.8 97.5 98.1 97.8 97.5 98.1 Pulse 106 98 118 107 Resp 16 16 16 16 B/P 130/90 127/79 112/79 103/65 Pulse Ox 96 96 96 96 O2 Delivery Room Air Room Air Room Air Room Air 11/03/16 11/03/16 11/04/16 11/04/16 20:00 23:01 07:00 08:00 Temp 98.8 98.2 98.8 98.2 Pulse 100 100 Resp 17 18 B/P 110/77 144/87 Pulse Ox 98 97 O2 Delivery Room Air Room Air Room Air Room Air 11/04/16 08:20 Pulse 100 B/P 144/87 Intake and Output 11/03/16 11/03/16 11/04/16 15:00 23:00 07:00 Intake Total 320 ml 200 ml Output Total 800 ml Balance 320 ml -600 ml SHAILESH LEIVA MD Nov 04, 2016 11:10
[2016-11-04] MEDS ORDERED: GADOBUTROL 7.5 MMOL/7.5 ML VIAL IV ONE (13:00)
--- NOTE | 2016-11-04 13:58 | RAD ---
MRI brain without contrast. History: Lung cancer, mental status change, decreased creatinine clearance MRI imaging was obtained of the brain without contrast. There is no abnormal signal on diffusion images to suggest an acute CVA. There is no mass identified. Ventricles are normal in size. Visualized sinuses are clear. FLAIR images show foci of decreased density in the periventricular white matter most consistent with chronic microvascular ischemic changes. A small brain metastases could not be excluded without contrast, larger mass or mass effect is not evident. Impression: 1. Microvascular changes in the periventricular white matter. 2. No acute CVA noted.
[2016-11-04 15:00] VITALS: BP 114/69
--- NOTE | 2016-11-04 15:54 | CARD ---
APPROVED REPORT EXAM: Two-dimensional and M-mode echocardiogram with Doppler and color Doppler. Other Information Quality : Technically Limited Technically limited study due to body habitus. INDICATION Myxedema 2D DIMENSIONS Left Atrium(2D)2.1 (1.6-4.0cm)IVSd1.0 (0.7-1.1cm) Aortic Root(2D)2.5 (2.0-3.7cm)LVDd2.8 (3.9-5.9cm) PWd0.9 (0.7-1.1cm)LVDs2.4 (2.5-4.0cm) FS (%) 30.0 %SV9.6 ml LVEF(%)60.0 (>50%) Aortic Valve AoV Peak Jose.72.3cm/sAoV VTI10.5cm AO Peak GR.2.1mmHgLVOT VTI 12.18cm AO Mean GR.1mmHg Mitral Valve MV E Cvhkrhvu65.9cm/sMV DECEL [id number] MV A Cdazyxiz32.8cm/sE/A Ratio0.6 TDI Lateral E' P. V9.77cm/sMedial E' P. V9.28cm/s E/Lateral E'3.7E/Medial E'3.9 LEFT VENTRICLE The left ventricle is normal size. There is normal left ventricular wall thickness. The left ventricu lar systolic function is normal and the ejection fraction is within normal range. The Ejection Fracti on is 60%. There is normal LV segmental wall motion. Transmitral Doppler flow pattern is Grade I-abno rmal relaxation pattern. RIGHT VENTRICLE The right ventricle is normal size. The right ventricular systolic function is normal. ATRIA The left atrium size is normal. The right atrium size is normal. The interatrial septum is intact wit h no evidence for an atrial septal defect or patent foramen ovale as noted on 2-D or Doppler imaging. AORTIC VALVE The aortic valve is calcified but opens well. Doppler and Color Flow revealed mild aortic regurgitati on. There is no significant aortic valvular stenosis. MITRAL VALVE The mitral valve is calcified but opens well. There is no evidence of mitral valve prolapse. There is no mitral valve stenosis. Doppler and Color Flow revealed no mitral valve regurgitation noted. TRICUSPID VALVE The tricuspid valve is normal in structure Doppler and Color Flow revealed trace tricuspid regurgitat ion. There is no tricuspid valve stenosis. PULMONIC VALVE The pulmonary valve is normal in structure and function. Doppler and Color Flow revealed no pulmonic valvular regurgitation. There is no pulmonic valvular stenosis. GREAT VESSELS The aortic root is normal in size. The ascending aorta is not well seen. The IVC is normal in size an d collapses >50% with inspiration. PERICARDIAL EFFUSION There is no evidence of significant pericardial effusion. Critical Notification Critical Value: No <Conclusion> The left ventricular systolic function is normal and the ejection fraction is within normal range. The Ejection Fraction is 60%. Transmitral Doppler flow pattern is Grade I-abnormal relaxation pattern. The left atrium size is normal. The right atrium size is normal. The aortic valve is calcified but opens well. Doppler and Color Flow revealed mild aortic regurgitation. The mitral valve is calcified but opens well. Doppler and Color Flow revealed no mitral valve regurgitation noted. Doppler and Color Flow revealed trace tricuspid regurgitation. The pulmonary valve is normal in structure and function. There is no evidence of significant pericardial effusion.
--- NOTE | 2016-11-04 16:21 | PDOC2 ---
NEUROLOGY CONSULT Date of Admission Date of Admission DATE: 11/04/16 TIME: 16:09 Reason for Consult Reason for Consult: IMPRESSION: Metabolic encephalopathy. Confusion. Myxedema. Hypothyroidism, TSH 172.5 Non small cell lung cancer stage III Left 9th rib fracture COPD Anemia Falls Former smoker RECOMMENDATIONS/PLAN: Brain MRI w/wo contrast, but no contrast was given due to concerns of renal insufficiency. Lab: see orders. Treat hypothyroidism. Treat medical diseases. Discussed with her daughter at bedside. HISTORY OF THE PRESENT ILLNESS: 76-y-old female patient with Hx of non small cell lung cancer stage III and has been treated and followed up with Oncology. She also had hypothyroidism but she has not compliant with treatment and has not take her medications for about 2 months. She was admitted this time due to mental; status changes, confusion, generalized weakness, falls. PAST MEDICAL HISTORY: Please see above. PAST SURGERY HISTORY: No major surgery recently. ALLERGY: NKDA MEDICATIONS: Refer to [facility] FAMILY HISTORY: Heart disease. SOCIAL HISTORY: Lives at home. Denies current smoking, drinking, and illicit drug use. She smoked 1 pack of cigarettes a day for about 50 years, quit 2 year ago. REVIEW OF SYSTEMS: Constitutional: Mild malnutrition. Head: No traumatic brain or head injury. Skin: No edema, or rash. Ear: No infection, tinnitus. Eyes: No vision loss or color blindness. Nose: No bleeding or purulent discharges. Hearing: No hearing decrease. Neck: No injury. Breast: No history of cancer, masses,or discharges. Cardiac: No LA, arrhythmia. Pulmonary: No OPD. GI: No GI ulcer, GI bleeding. Urinary/genital: UTI. Endocrinologic: Hypothyroidism. Skeletomuscular: Generalized weakness. Neurological: see HP. Psychiatric: Denies drug use/abuse. Otherwise, not [id number] review of systems. PHYSICAL EXAMINATION: General appearance is in subacute distress. HEENT: Normocephalic and nontraumatic. Eyes, nose, ears, and throat are unremarkable. Neck is supple. No lymphadenopathy. No bruits are heard over the carotid artery. No crepitus. Cardiovascular: S1, S2, regular rate and rhythm. Pulmonary: Clear to auscultation bilaterally. Abdomen: Bowel sounds are positive. Abdomen is soft, nontender, and nondistended. Extremities: No rash, lesions, or edema. No restriction of range of motion NEUROLOGICAL EXAMINATION: Awake. Not oriented to time, but knows place and person. PERRL. EOMI. CN: no focal findings. Muscle tone: within normal. Muscle strength: 4- DTR: 2- Plantar reflex: Flexor response bilaterally Gait: not examined in bed. . Sensory exam: no abnormal findings. No acute cerebellar signs elicited. F-T-N test fine. Current Medications Current Medications Current Medications Sodium Chloride 3 ml 3 ml PRN DAILY PRN IV AFTER MEDS AND BLOOD DRAWS; Start at 18:45 Potassium Chloride/Sodium Chloride (KCl 20 Meq-0.45% Nacl) 1,000 ml @ 100 mls/ hr Q10H IV Last administered on 11/04/16 14:16; Start 11/02/16 at 19:15 Acetaminophen (Tylenol) 650 mg PRN Q6HRS PRN PO MILD PAIN / TEMP; Start at 18:45 Allopurinol (Zyloprim) 100 mg DAILY PO Last administered on 11/04/16 08:20; Start 11/03/16 at 09:00 Amlodipine Besylate (Norvasc) 5 mg DAILY PO Last administered on 11/04/16 08:20 ; Start 11/03/16 at 09:00 Gabapentin (Neurontin) 100 mg BID PO Last administered on 11/04/16 08:20; Start 11/02/16 at 21:00 Levothyroxine Sodium (Synthroid) 75 mcg DAILY07 PO Last administered on 10:10; Start 11/03/16 at 07:00 Mirtazapine (Remeron) 15 mg QHS PO Last administered on 11/03/16 21:00; Start 11/02/16 at 21:00 Pantoprazole Sodium (Protonix) 40 mg DAILYAC PO Last administered on 11/04/16 08:19; Start 11/03/16 at 07:30 Hydrochlorothiazide (Hydrodiuril) 25 mg DAILY PO Last administered on 11/04/16 08:20; Start 11/03/16 at 09:00 Theophylline (Theodur) 200 mg BID PO Last administered on 11/03/16 10:09; Start 11/02/16 at 21:00; Stop 11/03/16 at 14:02; Status DC Acetaminophen/ Hydrocodone Bitart (Lortab 5/325) 1 tab PRN Q6HRS PRN PO PAIN; Start 11/02/16 at 20:45; Status Cancel Hydromorphone HCl (Dilaudid) 4 mg PRN Q4HRS PRN PO PAIN Last administered on 08:19; Start 11/02/16 at 21:45 Cyanocobalamin (Vitamin B-12) 1,000 mcg DAILY PO Last administered on 11/04/16 08:19; Start 11/03/16 at 12:30 Enoxaparin Sodium (Lovenox 30mg Syringe) 30 mg DAILY SQ Last administered on 08:27; Start 11/03/16 at 12:30 Theophylline 130 mg Q8HRS PO Last administered on 11/04/16 14:13; Start at 22:00 Gadobutrol (Gadavist) 4 mmol 1X ONCE IV ; Start 11/04/16 at 13:00; Stop 11/04/16 at 13:03; Status DC Active Scripts Active Reported Remeron (Mirtazapine) 15 Mg Tablet 1 Tab PO QHS Theophylline (Theophylline Anhydrous) 400 Mg Tablet.er 200 Mg PO TID Potassium Chloride 20 Meq Tablet.er 20 Meq PO BID Nexium Capsule (Esomeprazole Magnesium) 40 Mg Capsule.dr 1 Cap PO DAILY Levothyroxine Sodium 75 Mcg Tablet 1 Tab PO DAILY Hydromorphone Hcl 4 Mg Tablet 1 Tab PO QID Hydrochlorothiazide Tablet (Hydrochlorothiazide) 50 Mg Tablet 25 Mg PO DAILY Gabapentin 100 Mg Capsule 100 Mg PO BID Amlodipine Besylate 5 Mg Tablet 5 Mg PO DAILY Allopurinol 100 Mg Tablet 1 Tab PO BID Allergies Allergies: Coded Allergies: aspirin (Verified Allergy, Intermediate, 05/08/16) codeine (Verified Allergy, Intermediate, 05/08/16) methocarbamol (Verified Allergy, Intermediate, 05/08/16) morphine (Verified Allergy, Intermediate, 05/08/16) Morphine Sulfate ER 15 mg oxycodone (Verified Allergy, Intermediate, 05/08/16) sulfamethoxazole (Verified Allergy, Intermediate, 05/08/16) tramadol (Verified Allergy, Intermediate, 05/08/16) trimethoprim (Verified Allergy, Intermediate, 05/08/16) Vitals VITALS Vital Signs Date Time Temp Pulse Resp B/P Pulse Ox O2 Delivery O2 Flow Rate FiO2 11/04/16 15:00 97.9 93 18 114/69 96 Room Air 97.9 Labs Labs Laboratory Tests Test 11/02/16 16:40 11/03/16 04:45 11/04/16 07:40 White Blood Count 5.8x10^3/uL (4.0-11.0) 6.7x10^3/uL (4.0-11.0) 5.6x10^3/uL (4.0-11.0) Red Blood Count 3.14x10^6/uL (3.50-5.40) 3.05x10^6/uL (3.50-5.40) 2.87x10^6/uL (3.50-5.40) Hemoglobin 10.8g/dL (12.0-15.5) 10.4g/dL (12.0-15.5) 9.9g/dL (12.0-15.5) Hematocrit 32.8% (36.0-47.0) 32.1% (36.0-47.0) 30.3% (36.0-47.0) Mean Corpuscular Volume 104fL (79-100) 105fL (79-100) 106fL (79-100) Mean Corpuscular Hemoglobin 35pg (25-35) 34pg (25-35) 34pg (25-35) Mean Corpuscular Hemoglobin Concent 33g/dL (31-37) 33g/dL (31-37) 33g/dL (31-37) Red Cell Distribution Width 13.8% (11.5-14.5) 13.5% (11.5-14.5) 13.4% (11.5-14.5) Platelet Count 172x10^3/uL (140-400) 172x10^3/uL (140-400) 179x10^3/uL (140-400) Neutrophils (%) (Auto) 76% (31-73) 70% (31-73) 77% (31-73) Lymphocytes (%) (Auto) 12% (24-48) 17% (24-48) 11% (24-48) Monocytes (%) (Auto) 9% (0-9) 10% (0-9) 9% (0-9) Eosinophils (%) (Auto) 2% (0-3) 2% (0-3) 2% (0-3) Basophils (%) (Auto) 1% (0-3) 1% (0-3) 1% (0-3) Neutrophils # (Auto) 4.4x10^3uL (1.8-7.7) 4.7x10^3uL (1.8-7.7) 4.3x10^3uL (1.8-7.7) Lymphocytes # (Auto) 0.7x10^3/uL (1.0-4.8) 1.1x10^3/uL (1.0-4.8) 0.6x10^3/uL (1.0-4.8) Monocytes # (Auto) 0.5x10^3/uL (0.0-1.1) 0.7x10^3/uL (0.0-1.1) 0.5x10^3/uL (0.0-1.1) Eosinophils # (Auto) 0.1x10^3/uL (0.0-0.7) 0.2x10^3/uL (0.0-0.7) 0.1x10^3/uL (0.0-0.7) Basophils # (Auto) 0.0x10^3/uL (0.0-0.2) 0.1x10^3/uL (0.0-0.2) 0.1x10^3/uL (0.0-0.2) Sodium Level 139mmol/L (136-145) 141mmol/L (136-145) 139mmol/L (136-145) Potassium Level 3.7mmol/L (3.5-5.1) 3.7mmol/L (3.5-5.1) 3.7mmol/L (3.5-5.1) Chloride Level 101mmol/L (98-107) 102mmol/L (98-107) 103mmol/L (98-107) Carbon Dioxide Level 28mmol/L (21-32) 27mmol/L (21-32) 26mmol/L (21-32) Anion Gap 10 (6-14) 12 (6-14) 10 (6-14) Blood Urea Nitrogen 29mg/dL (7-20) 29mg/dL (7-20) 20mg/dL (7-20) Creatinine 1.3mg/dL (0.6-1.0) 1.3mg/dL (0.6-1.0) 1.4mg/dL (0.6-1.0) Estimated GFR (Cockcroft-Gault) 39.6 39.6 36.4 BUN/Creatinine Ratio 22 (6-20) Glucose Level 84mg/dL (70-99) 68mg/dL (70-99) 74mg/dL (70-99) Calcium Level 9.1mg/dL (8.5-10.1) 8.6mg/dL (8.5-10.1) 8.8mg/dL (8.5-10.1) Iron Level 40ug/dL (50-170) Total Iron Binding Capacity 239ug/dL (250-450) Iron Saturation 17% (15-34) Total Bilirubin 0.6mg/dL (0.2-1.0) Aspartate Amino Transf (AST/SGOT) 8U/L (15-37) Alanine Aminotransferase (ALT/SGPT) 13U/L (14-59) Alkaline Phosphatase 72U/L (46-116) Total Protein 7.6g/dL (6.4-8.2) Albumin 3.6g/dL (3.4-5.0) Albumin/Globulin Ratio 0.9 (1.0-1.7) Vitamin B12 Level 346pg/mL (211-946) Folic Acid (LAB) 18.0ng/mL (>3.0) Erythrocyte Sedimentation Rate 48 (0-25) Thyroid Stimulating Hormone (TSH) 89.995uIU/mL (0.358-3.74) Free Thyroxine 0.75ng/dL (0.76-1.46) Free Triiodothyronine (T3) pg/mL 0.91pg/mL (2.18-3.98) Total Triiodothyronine 58ng/dL (71-180) Laboratory Tests Test 11/04/16 07:40 White Blood Count 5.6x10^3/uL (4.0-11.0) Red Blood Count 2.87x10^6/uL (3.50-5.40) Hemoglobin 9.9g/dL (12.0-15.5) Hematocrit 30.3% (36.0-47.0) Mean Corpuscular Volume 106fL (79-100) Mean Corpuscular Hemoglobin 34pg (25-35) Mean Corpuscular Hemoglobin Concent 33g/dL (31-37) Red Cell Distribution Width 13.4% (11.5-14.5) Platelet Count 179x10^3/uL (140-400) Neutrophils (%) (Auto) 77% (31-73) Lymphocytes (%) (Auto) 11% (24-48) Monocytes (%) (Auto) 9% (0-9) Eosinophils (%) (Auto) 2% (0-3) Basophils (%) (Auto) 1% (0-3) Neutrophils # (Auto) 4.3x10^3uL (1.8-7.7) Lymphocytes # (Auto) 0.6x10^3/uL (1.0-4.8) Monocytes # (Auto) 0.5x10^3/uL (0.0-1.1) Eosinophils # (Auto) 0.1x10^3/uL (0.0-0.7) Basophils # (Auto) 0.1x10^3/uL (0.0-0.2) Erythrocyte Sedimentation Rate 48 (0-25) Sodium Level 139mmol/L (136-145) Potassium Level 3.7mmol/L (3.5-5.1) Chloride Level 103mmol/L (98-107) Carbon Dioxide Level 26mmol/L (21-32) Anion Gap 10 (6-14) Blood Urea Nitrogen 20mg/dL (7-20) Creatinine 1.4mg/dL (0.6-1.0) Estimated GFR (Cockcroft-Gault) 36.4 Glucose Level 74mg/dL (70-99) Calcium Level 8.8mg/dL (8.5-10.1) Thyroid Stimulating Hormone (TSH) 89.995uIU/mL (0.358-3.74) Free Thyroxine 0.75ng/dL (0.76-1.46) Free Triiodothyronine (T3) pg/mL 0.91pg/mL (2.18-3.98) Total Triiodothyronine 58ng/dL (71-180) YOSELIN KAUFMAN MD Nov 04, 2016 16:21
--- NOTE | 2016-11-04 16:37 | PDOC ---
PROGRESS NOTES Subjective Subjective Patient is alert and responsive but confused Objective Objective Vital Signs Date Time Temp Pulse Resp B/P Pulse Ox O2 Delivery O2 Flow Rate FiO2 11/04/16 15:00 97.9 93 18 114/69 96 Room Air 97.9 Intake and Output 11/04/16 07:00 Intake Total 520 ml Output Total 800 ml Balance -280 ml Intake Oral 520 ml Output Urine Total 500 ml Stool Total 300 ml # Voids 5 Physical Exam Physical Exam No significant changes in cardiac exam Assessment Assessment Patient is stable cardiac-simons. I agree with present plan. Problems Medical Problems: (1) Myxedema coma Status: Acute Comment Review of Relevant I have reviewed the following items shirin (where applicable) has been applied. Labs Laboratory Tests Test 11/02/16 16:40 11/03/16 04:45 11/04/16 07:40 White Blood Count 5.8x10^3/uL (4.0-11.0) 6.7x10^3/uL (4.0-11.0) 5.6x10^3/uL (4.0-11.0) Red Blood Count 3.14x10^6/uL (3.50-5.40) 3.05x10^6/uL (3.50-5.40) 2.87x10^6/uL (3.50-5.40) Hemoglobin 10.8g/dL (12.0-15.5) 10.4g/dL (12.0-15.5) 9.9g/dL (12.0-15.5) Hematocrit 32.8% (36.0-47.0) 32.1% (36.0-47.0) 30.3% (36.0-47.0) Mean Corpuscular Volume 104fL (79-100) 105fL (79-100) 106fL (79-100) Mean Corpuscular Hemoglobin 35pg (25-35) 34pg (25-35) 34pg (25-35) Mean Corpuscular Hemoglobin Concent 33g/dL (31-37) 33g/dL (31-37) 33g/dL (31-37) Red Cell Distribution Width 13.8% (11.5-14.5) 13.5% (11.5-14.5) 13.4% (11.5-14.5) Platelet Count 172x10^3/uL (140-400) 172x10^3/uL (140-400) 179x10^3/uL (140-400) Neutrophils (%) (Auto) 76% (31-73) 70% (31-73) 77% (31-73) Lymphocytes (%) (Auto) 12% (24-48) 17% (24-48) 11% (24-48) Monocytes (%) (Auto) 9% (0-9) 10% (0-9) 9% (0-9) Eosinophils (%) (Auto) 2% (0-3) 2% (0-3) 2% (0-3) Basophils (%) (Auto) 1% (0-3) 1% (0-3) 1% (0-3) Neutrophils # (Auto) 4.4x10^3uL (1.8-7.7) 4.7x10^3uL (1.8-7.7) 4.3x10^3uL (1.8-7.7) Lymphocytes # (Auto) 0.7x10^3/uL (1.0-4.8) 1.1x10^3/uL (1.0-4.8) 0.6x10^3/uL (1.0-4.8) Monocytes # (Auto) 0.5x10^3/uL (0.0-1.1) 0.7x10^3/uL (0.0-1.1) 0.5x10^3/uL (0.0-1.1) Eosinophils # (Auto) 0.1x10^3/uL (0.0-0.7) 0.2x10^3/uL (0.0-0.7) 0.1x10^3/uL (0.0-0.7) Basophils # (Auto) 0.0x10^3/uL (0.0-0.2) 0.1x10^3/uL (0.0-0.2) 0.1x10^3/uL (0.0-0.2) Sodium Level 139mmol/L (136-145) 141mmol/L (136-145) 139mmol/L (136-145) Potassium Level 3.7mmol/L (3.5-5.1) 3.7mmol/L (3.5-5.1) 3.7mmol/L (3.5-5.1) Chloride Level 101mmol/L (98-107) 102mmol/L (98-107) 103mmol/L (98-107) Carbon Dioxide Level 28mmol/L (21-32) 27mmol/L (21-32) 26mmol/L (21-32) Anion Gap 10 (6-14) 12 (6-14) 10 (6-14) Blood Urea Nitrogen 29mg/dL (7-20) 29mg/dL (7-20) 20mg/dL (7-20) Creatinine 1.3mg/dL (0.6-1.0) 1.3mg/dL (0.6-1.0) 1.4mg/dL (0.6-1.0) Estimated GFR (Cockcroft-Gault) 39.6 39.6 36.4 BUN/Creatinine Ratio 22 (6-20) Glucose Level 84mg/dL (70-99) 68mg/dL (70-99) 74mg/dL (70-99) Calcium Level 9.1mg/dL (8.5-10.1) 8.6mg/dL (8.5-10.1) 8.8mg/dL (8.5-10.1) Iron Level 40ug/dL (50-170) Total Iron Binding Capacity 239ug/dL (250-450) Iron Saturation 17% (15-34) Total Bilirubin 0.6mg/dL (0.2-1.0) Aspartate Amino Transf (AST/SGOT) 8U/L (15-37) Alanine Aminotransferase (ALT/SGPT) 13U/L (14-59) Alkaline Phosphatase 72U/L (46-116) Total Protein 7.6g/dL (6.4-8.2) Albumin 3.6g/dL (3.4-5.0) Albumin/Globulin Ratio 0.9 (1.0-1.7) Vitamin B12 Level 346pg/mL (211-946) Folic Acid (LAB) 18.0ng/mL (>3.0) Erythrocyte Sedimentation Rate 48 (0-25) Thyroid Stimulating Hormone (TSH) 89.995uIU/mL (0.358-3.74) Free Thyroxine 0.75ng/dL (0.76-1.46) Free Triiodothyronine (T3) pg/mL 0.91pg/mL (2.18-3.98) Total Triiodothyronine 58ng/dL (71-180) Laboratory Tests Test 11/04/16 07:40 White Blood Count 5.6x10^3/uL (4.0-11.0) Red Blood Count 2.87x10^6/uL (3.50-5.40) Hemoglobin 9.9g/dL (12.0-15.5) Hematocrit 30.3% (36.0-47.0) Mean Corpuscular Volume 106fL (79-100) Mean Corpuscular Hemoglobin 34pg (25-35) Mean Corpuscular Hemoglobin Concent 33g/dL (31-37) Red Cell Distribution Width 13.4% (11.5-14.5) Platelet Count 179x10^3/uL (140-400) Neutrophils (%) (Auto) 77% (31-73) Lymphocytes (%) (Auto) 11% (24-48) Monocytes (%) (Auto) 9% (0-9) Eosinophils (%) (Auto) 2% (0-3) Basophils (%) (Auto) 1% (0-3) Neutrophils # (Auto) 4.3x10^3uL (1.8-7.7) Lymphocytes # (Auto) 0.6x10^3/uL (1.0-4.8) Monocytes # (Auto) 0.5x10^3/uL (0.0-1.1) Eosinophils # (Auto) 0.1x10^3/uL (0.0-0.7) Basophils # (Auto) 0.1x10^3/uL (0.0-0.2) Erythrocyte Sedimentation Rate 48 (0-25) Sodium Level 139mmol/L (136-145) Potassium Level 3.7mmol/L (3.5-5.1) Chloride Level 103mmol/L (98-107) Carbon Dioxide Level 26mmol/L (21-32) Anion Gap 10 (6-14) Blood Urea Nitrogen 20mg/dL (7-20) Creatinine 1.4mg/dL (0.6-1.0) Estimated GFR (Cockcroft-Gault) 36.4 Glucose Level 74mg/dL (70-99) Calcium Level 8.8mg/dL (8.5-10.1) Thyroid Stimulating Hormone (TSH) 89.995uIU/mL (0.358-3.74) Free Thyroxine 0.75ng/dL (0.76-1.46) Free Triiodothyronine (T3) pg/mL 0.91pg/mL (2.18-3.98) Total Triiodothyronine 58ng/dL (71-180) Medications Current Medications Sodium Chloride 3 ml 3 ml PRN DAILY PRN IV AFTER MEDS AND BLOOD DRAWS; Start at 18:45 Potassium Chloride/Sodium Chloride (KCl 20 Meq-0.45% Nacl) 1,000 ml @ 100 mls/ hr Q10H IV Last administered on 11/04/16 14:16; Start 11/02/16 at 19:15 Acetaminophen (Tylenol) 650 mg PRN Q6HRS PRN PO MILD PAIN / TEMP; Start at 18:45 Allopurinol (Zyloprim) 100 mg DAILY PO Last administered on 11/04/16 08:20; Start 11/03/16 at 09:00 Amlodipine Besylate (Norvasc) 5 mg DAILY PO Last administered on 11/04/16 08:20 ; Start 11/03/16 at 09:00 Gabapentin (Neurontin) 100 mg BID PO Last administered on 11/04/16 08:20; Start 11/02/16 at 21:00 Levothyroxine Sodium (Synthroid) 75 mcg DAILY07 PO Last administered on 10:10; Start 11/03/16 at 07:00 Mirtazapine (Remeron) 15 mg QHS PO Last administered on 11/03/16 21:00; Start 11/02/16 at 21:00 Pantoprazole Sodium (Protonix) 40 mg DAILYAC PO Last administered on 11/04/16 08:19; Start 11/03/16 at 07:30 Hydrochlorothiazide (Hydrodiuril) 25 mg DAILY PO Last administered on 11/04/16 08:20; Start 11/03/16 at 09:00 Theophylline (Theodur) 200 mg BID PO Last administered on 11/03/16 10:09; Start 11/02/16 at 21:00; Stop 11/03/16 at 14:02; Status DC Acetaminophen/ Hydrocodone Bitart (Lortab 5/325) 1 tab PRN Q6HRS PRN PO PAIN; Start 11/02/16 at 20:45; Status Cancel Hydromorphone HCl (Dilaudid) 4 mg PRN Q4HRS PRN PO PAIN Last administered on 08:19; Start 11/02/16 at 21:45 Cyanocobalamin (Vitamin B-12) 1,000 mcg DAILY PO Last administered on 11/04/16 08:19; Start 11/03/16 at 12:30 Enoxaparin Sodium (Lovenox 30mg Syringe) 30 mg DAILY SQ Last administered on 08:27; Start 11/03/16 at 12:30 Theophylline 130 mg Q8HRS PO Last administered on 11/04/16 14:13; Start at 22:00 Gadobutrol (Gadavist) 4 mmol 1X ONCE IV ; Start 11/04/16 at 13:00; Stop 11/04/16 at 13:03; Status DC Active Scripts Active Reported Remeron (Mirtazapine) 15 Mg Tablet 1 Tab PO QHS Theophylline (Theophylline Anhydrous) 400 Mg Tablet.er 200 Mg PO TID Potassium Chloride 20 Meq Tablet.er 20 Meq PO BID Nexium Capsule (Esomeprazole Magnesium) 40 Mg Capsule.dr 1 Cap PO DAILY Levothyroxine Sodium 75 Mcg Tablet 1 Tab PO DAILY Hydromorphone Hcl 4 Mg Tablet 1 Tab PO QID Hydrochlorothiazide Tablet (Hydrochlorothiazide) 50 Mg Tablet 25 Mg PO DAILY Gabapentin 100 Mg Capsule 100 Mg PO BID Amlodipine Besylate 5 Mg Tablet 5 Mg PO DAILY Allopurinol 100 Mg Tablet 1 Tab PO BID Vitals/I & O Vital Sign - Last 24 Hours 11/03/16 11/03/16 11/03/16 11/03/16 17:45 19:00 20:00 23:01 Temp 98.1 98.8 98.1 98.8 Pulse 118 107 100 Resp 16 16 17 B/P 112/79 103/65 110/77 Pulse Ox 96 96 98 O2 Delivery Room Air Room Air Room Air Room Air 11/04/16 11/04/16 11/04/16 11/04/16 07:00 08:00 08:20 11:00 Temp 98.2 96.6 98.2 96.6 Pulse 100 100 100 Resp 18 18 B/P 144/87 144/87 107/63 Pulse Ox 97 97 O2 Delivery Room Air Room Air Room Air 11/04/16 15:00 Temp 97.9 97.9 Pulse 93 Resp 18 B/P 114/69 Pulse Ox 96 O2 Delivery Room Air Intake and Output 11/03/16 11/03/16 11/04/16 15:00 23:00 07:00 Intake Total 320 ml 200 ml Output Total 800 ml Balance 320 ml -600 ml MYLES MACK MD Nov 04, 2016 16:37
[2016-11-04 16:43] LABS: BILIRUBIN,URINE NEGATIVE (NEG); GLUCOSE,URINE NEGATIVE (NEG); NITRITE,URINE NEGATIVE (NEG); PROTEIN,URINE NEGATIVE (NEG-TRACE); UROBILINOGEN,URINE 0.2 mg/dL (0.2 mg/dL)
[2016-11-04 17:02] LABS: BACTERIA,URINE FEW /HPF (0-FEW); RBC,URINE 0 /HPF (0-2); SQUAMOUS EPITHELIAL CELL,UR MOD /LPF
[2016-11-04 19:39] VITALS: BP 140/85
[2016-11-04] MEDS: MIRTAZAPINE 15 MG TABLET PO SCH (19:54)
[2016-11-04] MEDS: ACETAMINOPHEN 325 MG TABLET. PO PRN (19:54)
[2016-11-05] MEDS: HYDROMORPHONE 4 MG TABLET. PO PRN ×3 (02:54→21:09)
[2016-11-05] MEDS: POTASSIUM CL 20MEQ-0.45% NACL 1,000 ML IV SCH ×3 (02:55→21:12)
[2016-11-05 03:09] VITALS: BP 146/82
[2016-11-05] MEDS: LEVOTHYROXINE 75 MCG TABLET PO SCH (06:25)
[2016-11-05 06:49] LABS: BASO # 0.1 x10^3/uL (0.0-0.2); BASO % 1 % (0-3); EOS % 3 % (0-3); HEMATOCRIT 30.5 % (36.0-47.0); LYMPH # 0.8 x10^3/uL (1.0-4.8); LYMPH % 11 % (24-48); MEAN CORPUSCULAR HEMOGLOBIN 34 pg (25-35); MEAN CORPUSCULAR HGB CONC 33 g/dL (31-37); MEAN CORPUSCULAR VOLUME 105 fL (79-100); MONO % 8 % (0-9); NEUT % 77 % (31-73); PLATELET COUNT 176 x10^3/uL (140-400); RED CELL DISTRIBUTION WIDTH 13.8 % (11.5-14.5); WHITE BLOOD COUNT 6.6 x10^3/uL (4.0-11.0)
[2016-11-05 07:00] VITALS: BP 138/81
[2016-11-05 07:00] LABS: CALCIUM 8.7 mg/dL (8.5-10.1); CREATININE 1.4 mg/dL (0.6-1.0); GFR 36.4; POTASSIUM 3.5 mmol/L (3.5-5.1)
[2016-11-05] MEDS: THEOPHYLLINE 80 MG/15 ML PO SCH ×3 (07:10→21:10)
[2016-11-05] MEDS: ALLOPURINOL 100 MG TABLET. PO SCH (09:21)
[2016-11-05] MEDS: PANTOPRAZOLE 40 MG TABLET. PO SCH (09:21)
[2016-11-05] MEDS: GABAPENTIN 100 MG CAPSULE. PO SCH ×2 (09:21→21:07)
[2016-11-05] MEDS: CYANOCOBALAMIN (VITAMIN B-12) 1,000 MCG TABLET. PO SCH (09:21)
[2016-11-05] MEDS: HYDROCHLOROTHIAZIDE 25 MG TABLET PO SCH (09:21)
[2016-11-05] MEDS: ENOXAPARIN 30 MG/0.3 ML DISP.SYRIN. SQ SCH (09:21)
[2016-11-05] MEDS: AMLODIPINE BESYLATE 5 MG TABLET PO SCH (09:21)
--- NOTE | 2016-11-05 10:14 | PDOC ---
PROGRESS NOTES Chief Complaint Chief Complaint error Comment Review of Relevant I have reviewed the following items shirin (where applicable) has been applied. Labs Laboratory Tests Test 11/04/16 07:40 11/04/16 15:10 11/05/16 06:30 White Blood Count 5.6x10^3/uL (4.0-11.0) 6.6x10^3/uL (4.0-11.0) Red Blood Count 2.87x10^6/uL (3.50-5.40) 2.90x10^6/uL (3.50-5.40) Hemoglobin 9.9g/dL (12.0-15.5) 10.0g/dL (12.0-15.5) Hematocrit 30.3% (36.0-47.0) 30.5% (36.0-47.0) Mean Corpuscular Volume 106fL (79-100) 105fL (79-100) Mean Corpuscular Hemoglobin 34pg (25-35) 34pg (25-35) Mean Corpuscular Hemoglobin Concent 33g/dL (31-37) 33g/dL (31-37) Red Cell Distribution Width 13.4% (11.5-14.5) 13.8% (11.5-14.5) Platelet Count 179x10^3/uL (140-400) 176x10^3/uL (140-400) Neutrophils (%) (Auto) 77% (31-73) 77% (31-73) Lymphocytes (%) (Auto) 11% (24-48) 11% (24-48) Monocytes (%) (Auto) 9% (0-9) 8% (0-9) Eosinophils (%) (Auto) 2% (0-3) 3% (0-3) Basophils (%) (Auto) 1% (0-3) 1% (0-3) Neutrophils # (Auto) 4.3x10^3uL (1.8-7.7) 5.1x10^3uL (1.8-7.7) Lymphocytes # (Auto) 0.6x10^3/uL (1.0-4.8) 0.8x10^3/uL (1.0-4.8) Monocytes # (Auto) 0.5x10^3/uL (0.0-1.1) 0.5x10^3/uL (0.0-1.1) Eosinophils # (Auto) 0.1x10^3/uL (0.0-0.7) 0.2x10^3/uL (0.0-0.7) Basophils # (Auto) 0.1x10^3/uL (0.0-0.2) 0.1x10^3/uL (0.0-0.2) Erythrocyte Sedimentation Rate 48 (0-25) Sodium Level 139mmol/L (136-145) 138mmol/L (136-145) Potassium Level 3.7mmol/L (3.5-5.1) 3.5mmol/L (3.5-5.1) Chloride Level 103mmol/L (98-107) 102mmol/L (98-107) Carbon Dioxide Level 26mmol/L (21-32) 28mmol/L (21-32) Anion Gap 10 (6-14) 8 (6-14) Blood Urea Nitrogen 20mg/dL (7-20) 11mg/dL (7-20) Creatinine 1.4mg/dL (0.6-1.0) 1.4mg/dL (0.6-1.0) Estimated GFR (Cockcroft-Gault) 36.4 36.4 Glucose Level 74mg/dL (70-99) 103mg/dL (70-99) Calcium Level 8.8mg/dL (8.5-10.1) 8.7mg/dL (8.5-10.1) Thyroid Stimulating Hormone (TSH) 89.995uIU/mL (0.358-3.74) Free Thyroxine 0.75ng/dL (0.76-1.46) Free Triiodothyronine (T3) pg/mL 0.91pg/mL (2.18-3.98) Total Triiodothyronine 58ng/dL (71-180) Urine Collection Type Unknown Urine Color Yellow Urine Clarity Clear Urine pH 6.0 Urine Specific [place] <=1.005 Urine Protein Negativemg/dL (NEG-TRACE) Urine Glucose (UA) Negativemg/dL (NEG) Urine Ketones (Stick) Negativemg/dL (NEG) Urine Blood Negative (NEG) Urine Nitrite Negative (NEG) Urine Bilirubin Negative (NEG) Urine Urobilinogen Dipstick 0.2mg/dL (0.2 mg/dL) Urine Leukocyte Esterase Negative (NEG) Urine RBC 0/HPF (0-2) Urine WBC 1-4/HPF (0-4) Urine Squamous Epithelial Cells Mod/LPF Urine Bacteria Few/HPF (0-FEW) Laboratory Tests Test 11/04/16 15:10 11/05/16 06:30 Urine Collection Type Unknown Urine Color Yellow Urine Clarity Clear Urine pH 6.0 Urine Specific [place] <=1.005 Urine Protein Negativemg/dL (NEG-TRACE) Urine Glucose (UA) Negativemg/dL (NEG) Urine Ketones (Stick) Negativemg/dL (NEG) Urine Blood Negative (NEG) Urine Nitrite Negative (NEG) Urine Bilirubin Negative (NEG) Urine Urobilinogen Dipstick 0.2mg/dL (0.2 mg/dL) Urine Leukocyte Esterase Negative (NEG) Urine RBC 0/HPF (0-2) Urine WBC 1-4/HPF (0-4) Urine Squamous Epithelial Cells Mod/LPF Urine Bacteria Few/HPF (0-FEW) White Blood Count 6.6x10^3/uL (4.0-11.0) Red Blood Count 2.90x10^6/uL (3.50-5.40) Hemoglobin 10.0g/dL (12.0-15.5) Hematocrit 30.5% (36.0-47.0) Mean Corpuscular Volume 105fL (79-100) Mean Corpuscular Hemoglobin 34pg (25-35) Mean Corpuscular Hemoglobin Concent 33g/dL (31-37) Red Cell Distribution Width 13.8% (11.5-14.5) Platelet Count 176x10^3/uL (140-400) Neutrophils (%) (Auto) 77% (31-73) Lymphocytes (%) (Auto) 11% (24-48) Monocytes (%) (Auto) 8% (0-9) Eosinophils (%) (Auto) 3% (0-3) Basophils (%) (Auto) 1% (0-3) Neutrophils # (Auto) 5.1x10^3uL (1.8-7.7) Lymphocytes # (Auto) 0.8x10^3/uL (1.0-4.8) Monocytes # (Auto) 0.5x10^3/uL (0.0-1.1) Eosinophils # (Auto) 0.2x10^3/uL (0.0-0.7) Basophils # (Auto) 0.1x10^3/uL (0.0-0.2) Sodium Level 138mmol/L (136-145) Potassium Level 3.5mmol/L (3.5-5.1) Chloride Level 102mmol/L (98-107) Carbon Dioxide Level 28mmol/L (21-32) Anion Gap 8 (6-14) Blood Urea Nitrogen 11mg/dL (7-20) Creatinine 1.4mg/dL (0.6-1.0) Estimated GFR (Cockcroft-Gault) 36.4 Glucose Level 103mg/dL (70-99) Calcium Level 8.7mg/dL (8.5-10.1) Medications Current Medications Sodium Chloride 3 ml 3 ml PRN DAILY PRN IV AFTER MEDS AND BLOOD DRAWS; Start at 18:45 Potassium Chloride/Sodium Chloride (KCl 20 Meq-0.45% Nacl) 1,000 ml @ 100 mls/ hr Q10H IV Last administered on 11/05/16 09:20; Start 11/02/16 at 19:15 Acetaminophen (Tylenol) 650 mg PRN Q6HRS PRN PO MILD PAIN / TEMP Last administered on 11/04/16 19:54; Start 11/02/16 at 18:45 Allopurinol (Zyloprim) 100 mg DAILY PO Last administered on 11/05/16 09:21; Start 11/03/16 at 09:00 Amlodipine Besylate (Norvasc) 5 mg DAILY PO Last administered on 11/05/16 09:21 ; Start 11/03/16 at 09:00 Gabapentin (Neurontin) 100 mg BID PO Last administered on 11/05/16 09:21; Start 11/02/16 at 21:00 Levothyroxine Sodium (Synthroid) 75 mcg DAILY07 PO Last administered on 06:25; Start 11/03/16 at 07:00 Mirtazapine (Remeron) 15 mg QHS PO Last administered on 11/04/16 19:54; Start 11/02/16 at 21:00 Pantoprazole Sodium (Protonix) 40 mg DAILYAC PO Last administered on 11/05/16 09:21; Start 11/03/16 at 07:30 Hydrochlorothiazide (Hydrodiuril) 25 mg DAILY PO Last administered on 11/05/16 09:21; Start 11/03/16 at 09:00 Theophylline (Theodur) 200 mg BID PO Last administered on 11/03/16 10:09; Start 11/02/16 at 21:00; Stop 11/03/16 at 14:02; Status DC Acetaminophen/ Hydrocodone Bitart (Lortab 5/325) 1 tab PRN Q6HRS PRN PO PAIN; Start 11/02/16 at 20:45; Status Cancel Hydromorphone HCl (Dilaudid) 4 mg PRN Q4HRS PRN PO PAIN Last administered on 02:54; Start 11/02/16 at 21:45 Cyanocobalamin (Vitamin B-12) 1,000 mcg DAILY PO Last administered on 11/05/16 09:21; Start 11/03/16 at 12:30 Enoxaparin Sodium (Lovenox 30mg Syringe) 30 mg DAILY SQ Last administered on 09:21; Start 11/03/16 at 12:30 Theophylline 130 mg Q8HRS PO Last administered on 11/05/16 07:10; Start at 22:00 Gadobutrol (Gadavist) 4 mmol 1X ONCE IV ; Start 11/04/16 at 13:00; Stop 11/04/16 at 13:03; Status DC Active Scripts Active Reported Remeron (Mirtazapine) 15 Mg Tablet 1 Tab PO QHS Theophylline (Theophylline Anhydrous) 400 Mg Tablet.er 200 Mg PO TID Potassium Chloride 20 Meq Tablet.er 20 Meq PO BID Nexium Capsule (Esomeprazole Magnesium) 40 Mg Capsule.dr 1 Cap PO DAILY Levothyroxine Sodium 75 Mcg Tablet 1 Tab PO DAILY Hydromorphone Hcl 4 Mg Tablet 1 Tab PO QID Hydrochlorothiazide Tablet (Hydrochlorothiazide) 50 Mg Tablet 25 Mg PO DAILY Gabapentin 100 Mg Capsule 100 Mg PO BID Amlodipine Besylate 5 Mg Tablet 5 Mg PO DAILY Allopurinol 100 Mg Tablet 1 Tab PO BID Vitals/I & O Vital Sign - Last 24 Hours 11/04/16 11/04/16 11/04/16 11/04/16 11:00 15:00 19:39 20:20 Temp 96.6 97.9 98.6 96.6 97.9 98.6 Pulse 100 93 99 Resp 18 18 18 B/P 107/63 114/69 140/85 Pulse Ox 97 96 96 O2 Delivery Room Air Room Air Room Air Room Air 11/05/16 11/05/16 11/05/16 03:09 07:00 09:21 Temp 98.4 98.4 98.4 98.4 Pulse 109 102 102 Resp 18 B/P 146/82 138/81 138/81 Pulse Ox 95 95 O2 Delivery Room Air Room Air Intake and Output 11/04/16 11/04/16 11/05/16 15:00 23:00 07:00 Intake Total 400 ml 250 ml Balance 400 ml 250 ml SHAILESH LEIVA MD Nov 05, 2016 10:14
[2016-11-05 11:00] VITALS: BP 138/73
[2016-11-05 15:00] VITALS: BP 128/73
--- NOTE | 2016-11-05 15:54 | PDOC ---
PROGRESS NOTES Assessment Assessment Metabolic encephalopathy. Confusion. Myxedema. Hypothyroidism, TSH 172.5 Non small cell lung cancer stage III Left 9th rib fracture COPD Anemia Falls Former smoker RECOMMENDATIONS/PLAN: Treat hypothyroidism. Treat medical diseases. Discussed with her and son at bedside on 11/05/16. Brain MRI w/wo contrast on 11/04, but no contrast was given due to concerns of renal insufficiency. No mass found. HISTORY OF THE PRESENT ILLNESS: 76-y-old female patient with Hx of non small cell lung cancer stage III and has been treated and followed up with Oncology. She also had hypothyroidism but she has not compliant with treatment and has not take her medications for about 2 months. She was admitted this time due to mental; status changes, confusion, generalized weakness, falls. PAST MEDICAL HISTORY: Please see above. PAST SURGERY HISTORY: No major surgery recently. ALLERGY: NKDA MEDICATIONS: Refer to [facility] FAMILY HISTORY: Heart disease. SOCIAL HISTORY: Lives at home. Denies current smoking, drinking, and illicit drug use. She smoked 1 pack of cigarettes a day for about 50 years, quit 2 year ago. REVIEW OF SYSTEMS: Constitutional: Mild malnutrition. Head: No traumatic brain or head injury. Skin: No edema, or rash. Ear: No infection, tinnitus. Eyes: No vision loss or color blindness. Nose: No bleeding or purulent discharges. Hearing: No hearing decrease. Neck: No injury. Breast: No history of cancer, masses,or discharges. Cardiac: No NC, arrhythmia. Pulmonary: No OPD. GI: No GI ulcer, GI bleeding. Urinary/genital: UTI. Endocrinologic: Hypothyroidism. Skeletomuscular: Generalized weakness. Neurological: see HP. Psychiatric: Denies drug use/abuse. Otherwise, not [id number] review of systems. PHYSICAL EXAMINATION: General appearance is in subacute distress. HEENT: Normocephalic and nontraumatic. Eyes, nose, ears, and throat are unremarkable. Neck is supple. No lymphadenopathy. No bruits are heard over the carotid artery. No crepitus. Cardiovascular: S1, S2, regular rate and rhythm. Pulmonary: Clear to auscultation bilaterally. Abdomen: Bowel sounds are positive. Abdomen is soft, nontender, and nondistended. Extremities: No rash, lesions, or edema. No restriction of range of motion NEUROLOGICAL EXAMINATION: Awake. Not oriented to time and partially knows place and person. PERRL. EOMI. CN: no focal findings. Muscle tone: within normal. Muscle strength: 4- DTR: 2- Plantar reflex: Flexor response bilaterally Gait: not examined in bed. . Sensory exam: no abnormal findings. No acute cerebellar signs elicited. F-T-N test fine. Objective Objective Vital Signs Date Time Temp Pulse Resp B/P Pulse Ox O2 Delivery O2 Flow Rate FiO2 11/05/16 15:00 93.6 91 18 128/73 93 Room Air 93.6 Intake and Output 11/05/16 07:00 Intake Total 650 ml Balance 650 ml Intake Oral 650 ml # Voids 5 Vitals Signs Vitals VS - Last 72 Hours, by Label Date Time Temp Pulse Resp B/P Pulse Ox O2 Delivery O2 Flow Rate FiO2 11/05/16 15:00 93.6 91 18 128/73 93 Room Air 93.6 11/05/16 11:00 98.1 95 18 138/73 93 Room Air 98.1 11/05/16 09:21 102 138/81 11/05/16 08:00 Room Air 11/05/16 07:00 98.4 102 18 138/81 95 Room Air 98.4 11/05/16 03:09 98.4 109 18 146/82 95 Room Air 98.4 11/04/16 20:20 Room Air 11/04/16 19:39 98.6 99 18 140/85 96 Room Air 98.6 11/04/16 15:00 97.9 93 18 114/69 96 Room Air 97.9 11/04/16 11:00 96.6 100 18 107/63 97 Room Air 96.6 11/04/16 08:20 100 144/87 11/04/16 08:00 Room Air 11/04/16 07:00 98.2 100 18 144/87 97 Room Air 98.2 Laboratory Laboratory Laboratory Tests Test 11/05/16 06:30 White Blood Count 6.6x10^3/uL (4.0-11.0) Red Blood Count 2.90x10^6/uL (3.50-5.40) Hemoglobin 10.0g/dL (12.0-15.5) Hematocrit 30.5% (36.0-47.0) Mean Corpuscular Volume 105fL (79-100) Mean Corpuscular Hemoglobin 34pg (25-35) Mean Corpuscular Hemoglobin Concent 33g/dL (31-37) Red Cell Distribution Width 13.8% (11.5-14.5) Platelet Count 176x10^3/uL (140-400) Neutrophils (%) (Auto) 77% (31-73) Lymphocytes (%) (Auto) 11% (24-48) Monocytes (%) (Auto) 8% (0-9) Eosinophils (%) (Auto) 3% (0-3) Basophils (%) (Auto) 1% (0-3) Neutrophils # (Auto) 5.1x10^3uL (1.8-7.7) Lymphocytes # (Auto) 0.8x10^3/uL (1.0-4.8) Monocytes # (Auto) 0.5x10^3/uL (0.0-1.1) Eosinophils # (Auto) 0.2x10^3/uL (0.0-0.7) Basophils # (Auto) 0.1x10^3/uL (0.0-0.2) Sodium Level 138mmol/L (136-145) Potassium Level 3.5mmol/L (3.5-5.1) Chloride Level 102mmol/L (98-107) Carbon Dioxide Level 28mmol/L (21-32) Anion Gap 8 (6-14) Blood Urea Nitrogen 11mg/dL (7-20) Creatinine 1.4mg/dL (0.6-1.0) Estimated GFR (Cockcroft-Gault) 36.4 Glucose Level 103mg/dL (70-99) Calcium Level 8.7mg/dL (8.5-10.1) Comment Review of Relevant I have reviewed the following items shirin (where applicable) has been applied. YOSELIN KAUFMAN MD Nov 05, 2016 15:53
--- NOTE | 2016-11-05 16:48 | PDOC ---
PROGRESS NOTES Chief Complaint Chief Complaint AMS, Weakness ASSESSMENT AND PLAN: 1. AMS: metabolic encephalopathy with severe hypothyroidism, lowish B12: improving. MRI (no gado) w/o evidence of mets 2. Hypothyroidism: repletion restarted. T4 low normal now 3. NSCLC, stage 3 post chemo and RT: stable by restaging CT this week 4. CAD: no acute issues. cont home meds. echo with nl LVEF 5. Asthma: no respir issues. nebs PRN, theophylline 6. CKD3: stable 7. Macrocytic anemia: 2/2 hypothyroidism; borderline low B12, on PO repletion 8. (Sub) acute 9L rib fx: eval for osteoporosis. vit D level pending. start Ca/VitD 9. Depression: on remeron 10. OA: s/p back surgeries; on chronic narcotics 11. Constipation: narcotics and myxedema. bowel regimen 12. Prophylaxis: lovenox, PPI 13. Dispo: rehab in next couple of days Vitals Vitals Vital Signs Date Time Temp Pulse Resp B/P Pulse Ox O2 Delivery O2 Flow Rate FiO2 11/05/16 15:00 93.6 91 18 128/73 93 Room Air 93.6 Physical Exam General: Alert, Cooperative Heart: Regular rate, Normal S1, Normal S2, No murmurs Lungs: Clear Abdomen: Normal bowel sounds, Soft, Other (left abd tenderness) Extremities: No clubbing, No cyanosis, No edema, Other (Lower extremities tender to palpation) Skin: No rashes Labs LABS Laboratory Tests Test 11/05/16 06:30 White Blood Count 6.6x10^3/uL (4.0-11.0) Red Blood Count 2.90x10^6/uL (3.50-5.40) Hemoglobin 10.0g/dL (12.0-15.5) Hematocrit 30.5% (36.0-47.0) Mean Corpuscular Volume 105fL (79-100) Mean Corpuscular Hemoglobin 34pg (25-35) Mean Corpuscular Hemoglobin Concent 33g/dL (31-37) Red Cell Distribution Width 13.8% (11.5-14.5) Platelet Count 176x10^3/uL (140-400) Neutrophils (%) (Auto) 77% (31-73) Lymphocytes (%) (Auto) 11% (24-48) Monocytes (%) (Auto) 8% (0-9) Eosinophils (%) (Auto) 3% (0-3) Basophils (%) (Auto) 1% (0-3) Neutrophils # (Auto) 5.1x10^3uL (1.8-7.7) Lymphocytes # (Auto) 0.8x10^3/uL (1.0-4.8) Monocytes # (Auto) 0.5x10^3/uL (0.0-1.1) Eosinophils # (Auto) 0.2x10^3/uL (0.0-0.7) Basophils # (Auto) 0.1x10^3/uL (0.0-0.2) Sodium Level 138mmol/L (136-145) Potassium Level 3.5mmol/L (3.5-5.1) Chloride Level 102mmol/L (98-107) Carbon Dioxide Level 28mmol/L (21-32) Anion Gap 8 (6-14) Blood Urea Nitrogen 11mg/dL (7-20) Creatinine 1.4mg/dL (0.6-1.0) Estimated GFR (Cockcroft-Gault) 36.4 Glucose Level 103mg/dL (70-99) Calcium Level 8.7mg/dL (8.5-10.1) Review of Systems Review of Systems feels better, c/o distended abd, uncomfortable Comment Review of Relevant I have reviewed the following items shirin (where applicable) has been applied. Labs Laboratory Tests Test 11/04/16 07:40 11/04/16 15:10 11/05/16 06:30 White Blood Count 5.6x10^3/uL (4.0-11.0) 6.6x10^3/uL (4.0-11.0) Red Blood Count 2.87x10^6/uL (3.50-5.40) 2.90x10^6/uL (3.50-5.40) Hemoglobin 9.9g/dL (12.0-15.5) 10.0g/dL (12.0-15.5) Hematocrit 30.3% (36.0-47.0) 30.5% (36.0-47.0) Mean Corpuscular Volume 106fL (79-100) 105fL (79-100) Mean Corpuscular Hemoglobin 34pg (25-35) 34pg (25-35) Mean Corpuscular Hemoglobin Concent 33g/dL (31-37) 33g/dL (31-37) Red Cell Distribution Width 13.4% (11.5-14.5) 13.8% (11.5-14.5) Platelet Count 179x10^3/uL (140-400) 176x10^3/uL (140-400) Neutrophils (%) (Auto) 77% (31-73) 77% (31-73) Lymphocytes (%) (Auto) 11% (24-48) 11% (24-48) Monocytes (%) (Auto) 9% (0-9) 8% (0-9) Eosinophils (%) (Auto) 2% (0-3) 3% (0-3) Basophils (%) (Auto) 1% (0-3) 1% (0-3) Neutrophils # (Auto) 4.3x10^3uL (1.8-7.7) 5.1x10^3uL (1.8-7.7) Lymphocytes # (Auto) 0.6x10^3/uL (1.0-4.8) 0.8x10^3/uL (1.0-4.8) Monocytes # (Auto) 0.5x10^3/uL (0.0-1.1) 0.5x10^3/uL (0.0-1.1) Eosinophils # (Auto) 0.1x10^3/uL (0.0-0.7) 0.2x10^3/uL (0.0-0.7) Basophils # (Auto) 0.1x10^3/uL (0.0-0.2) 0.1x10^3/uL (0.0-0.2) Erythrocyte Sedimentation Rate 48 (0-25) Sodium Level 139mmol/L (136-145) 138mmol/L (136-145) Potassium Level 3.7mmol/L (3.5-5.1) 3.5mmol/L (3.5-5.1) Chloride Level 103mmol/L (98-107) 102mmol/L (98-107) Carbon Dioxide Level 26mmol/L (21-32) 28mmol/L (21-32) Anion Gap 10 (6-14) 8 (6-14) Blood Urea Nitrogen 20mg/dL (7-20) 11mg/dL (7-20) Creatinine 1.4mg/dL (0.6-1.0) 1.4mg/dL (0.6-1.0) Estimated GFR (Cockcroft-Gault) 36.4 36.4 Glucose Level 74mg/dL (70-99) 103mg/dL (70-99) Calcium Level 8.8mg/dL (8.5-10.1) 8.7mg/dL (8.5-10.1) Thyroid Stimulating Hormone (TSH) 89.995uIU/mL (0.358-3.74) Free Thyroxine 0.75ng/dL (0.76-1.46) Free Triiodothyronine (T3) pg/mL 0.91pg/mL (2.18-3.98) Total Triiodothyronine 58ng/dL (71-180) Urine Collection Type Unknown Urine Color Yellow Urine Clarity Clear Urine pH 6.0 Urine Specific [place] <=1.005 Urine Protein Negativemg/dL (NEG-TRACE) Urine Glucose (UA) Negativemg/dL (NEG) Urine Ketones (Stick) Negativemg/dL (NEG) Urine Blood Negative (NEG) Urine Nitrite Negative (NEG) Urine Bilirubin Negative (NEG) Urine Urobilinogen Dipstick 0.2mg/dL (0.2 mg/dL) Urine Leukocyte Esterase Negative (NEG) Urine RBC 0/HPF (0-2) Urine WBC 1-4/HPF (0-4) Urine Squamous Epithelial Cells Mod/LPF Urine Bacteria Few/HPF (0-FEW) Laboratory Tests Test 11/05/16 06:30 White Blood Count 6.6x10^3/uL (4.0-11.0) Red Blood Count 2.90x10^6/uL (3.50-5.40) Hemoglobin 10.0g/dL (12.0-15.5) Hematocrit 30.5% (36.0-47.0) Mean Corpuscular Volume 105fL (79-100) Mean Corpuscular Hemoglobin 34pg (25-35) Mean Corpuscular Hemoglobin Concent 33g/dL (31-37) Red Cell Distribution Width 13.8% (11.5-14.5) Platelet Count 176x10^3/uL (140-400) Neutrophils (%) (Auto) 77% (31-73) Lymphocytes (%) (Auto) 11% (24-48) Monocytes (%) (Auto) 8% (0-9) Eosinophils (%) (Auto) 3% (0-3) Basophils (%) (Auto) 1% (0-3) Neutrophils # (Auto) 5.1x10^3uL (1.8-7.7) Lymphocytes # (Auto) 0.8x10^3/uL (1.0-4.8) Monocytes # (Auto) 0.5x10^3/uL (0.0-1.1) Eosinophils # (Auto) 0.2x10^3/uL (0.0-0.7) Basophils # (Auto) 0.1x10^3/uL (0.0-0.2) Sodium Level 138mmol/L (136-145) Potassium Level 3.5mmol/L (3.5-5.1) Chloride Level 102mmol/L (98-107) Carbon Dioxide Level 28mmol/L (21-32) Anion Gap 8 (6-14) Blood Urea Nitrogen 11mg/dL (7-20) Creatinine 1.4mg/dL (0.6-1.0) Estimated GFR (Cockcroft-Gault) 36.4 Glucose Level 103mg/dL (70-99) Calcium Level 8.7mg/dL (8.5-10.1) Medications Current Medications Sodium Chloride 3 ml 3 ml PRN DAILY PRN IV AFTER MEDS AND BLOOD DRAWS; Start at 18:45 Potassium Chloride/Sodium Chloride (KCl 20 Meq-0.45% Nacl) 1,000 ml @ 100 mls/ hr Q10H IV Last administered on 11/05/16 09:20; Start 11/02/16 at 19:15 Acetaminophen (Tylenol) 650 mg PRN Q6HRS PRN PO MILD PAIN / TEMP Last administered on 11/04/16 19:54; Start 11/02/16 at 18:45 Allopurinol (Zyloprim) 100 mg DAILY PO Last administered on 11/05/16 09:21; Start 11/03/16 at 09:00 Amlodipine Besylate (Norvasc) 5 mg DAILY PO Last administered on 11/05/16 09:21 ; Start 11/03/16 at 09:00 Gabapentin (Neurontin) 100 mg BID PO Last administered on 11/05/16 09:21; Start 11/02/16 at 21:00 Levothyroxine Sodium (Synthroid) 75 mcg DAILY07 PO Last administered on 06:25; Start 11/03/16 at 07:00 Mirtazapine (Remeron) 15 mg QHS PO Last administered on 11/04/16 19:54; Start 11/02/16 at 21:00 Pantoprazole Sodium (Protonix) 40 mg DAILYAC PO Last administered on 11/05/16 09:21; Start 11/03/16 at 07:30 Hydrochlorothiazide (Hydrodiuril) 25 mg DAILY PO Last administered on 11/05/16 09:21; Start 11/03/16 at 09:00 Theophylline (Theodur) 200 mg BID PO Last administered on 11/03/16 10:09; Start 11/02/16 at 21:00; Stop 11/03/16 at 14:02; Status DC Acetaminophen/ Hydrocodone Bitart (Lortab 5/325) 1 tab PRN Q6HRS PRN PO PAIN; Start 11/02/16 at 20:45; Status Cancel Hydromorphone HCl (Dilaudid) 4 mg PRN Q4HRS PRN PO PAIN Last administered on 16:10; Start 11/02/16 at 21:45 Cyanocobalamin (Vitamin B-12) 1,000 mcg DAILY PO Last administered on 11/05/16 09:21; Start 11/03/16 at 12:30 Enoxaparin Sodium (Lovenox 30mg Syringe) 30 mg DAILY SQ Last administered on 09:21; Start 11/03/16 at 12:30 Theophylline 130 mg Q8HRS PO Last administered on 11/05/16 14:24; Start at 22:00 Gadobutrol (Gadavist) 4 mmol 1X ONCE IV ; Start 11/04/16 at 13:00; Stop 11/04/16 at 13:03; Status DC Active Scripts Active Reported Remeron (Mirtazapine) 15 Mg Tablet 1 Tab PO QHS Theophylline (Theophylline Anhydrous) 400 Mg Tablet.er 200 Mg PO TID Potassium Chloride 20 Meq Tablet.er 20 Meq PO BID Nexium Capsule (Esomeprazole Magnesium) 40 Mg Capsule.dr 1 Cap PO DAILY Levothyroxine Sodium 75 Mcg Tablet 1 Tab PO DAILY Hydromorphone Hcl 4 Mg Tablet 1 Tab PO QID Hydrochlorothiazide Tablet (Hydrochlorothiazide) 50 Mg Tablet 25 Mg PO DAILY Gabapentin 100 Mg Capsule 100 Mg PO BID Amlodipine Besylate 5 Mg Tablet 5 Mg PO DAILY Allopurinol 100 Mg Tablet 1 Tab PO BID Vitals/I & O Vital Sign - Last 24 Hours 11/04/16 11/04/16 11/05/16 11/05/16 19:39 20:20 03:09 07:00 Temp 98.6 98.4 98.4 98.6 98.4 98.4 Pulse 99 109 102 Resp B/P 140/85 146/82 138/81 Pulse Ox 96 95 95 O2 Delivery Room Air Room Air Room Air Room Air 11/05/16 11/05/16 11/05/16 11/05/16 08:00 09:21 11:00 15:00 Temp 98.1 93.6 98.1 93.6 Pulse 102 95 91 Resp 18 18 B/P 138/81 138/73 128/73 Pulse Ox 93 93 O2 Delivery Room Air Room Air Room Air Intake and Output 11/04/16 11/04/16 11/05/16 15:00 23:00 07:00 Intake Total 400 ml 250 ml Balance 400 ml 250 ml SHAILESH LEIVA MD Nov 05, 2016 16:48
[2016-11-05] MEDS: CALCIUM CARB/VIT D3 500/200 TABLET PO SCH (17:00)
--- NOTE | 2016-11-05 17:23 | PDOC ---
PROGRESS NOTES Subjective Subjective Less confused. No cardiac complaints. Objective Objective Vital Signs Date Time Temp Pulse Resp B/P Pulse Ox O2 Delivery O2 Flow Rate FiO2 11/05/16 15:00 93.6 91 18 128/73 93 Room Air 93.6 Intake and Output 11/05/16 07:00 Intake Total 650 ml Balance 650 ml Intake Oral 650 ml # Voids 5 Physical Exam Physical Exam No significant changes in cardiac exam Assessment Assessment Patient compensated cardiac-simons. I agree with present plan. Problems Medical Problems: (1) Myxedema coma Status: Acute Comment Review of Relevant I have reviewed the following items shirin (where applicable) has been applied. Labs Laboratory Tests Test 11/04/16 07:40 11/04/16 15:10 11/05/16 06:30 White Blood Count 5.6x10^3/uL (4.0-11.0) 6.6x10^3/uL (4.0-11.0) Red Blood Count 2.87x10^6/uL (3.50-5.40) 2.90x10^6/uL (3.50-5.40) Hemoglobin 9.9g/dL (12.0-15.5) 10.0g/dL (12.0-15.5) Hematocrit 30.3% (36.0-47.0) 30.5% (36.0-47.0) Mean Corpuscular Volume 106fL (79-100) 105fL (79-100) Mean Corpuscular Hemoglobin 34pg (25-35) 34pg (25-35) Mean Corpuscular Hemoglobin Concent 33g/dL (31-37) 33g/dL (31-37) Red Cell Distribution Width 13.4% (11.5-14.5) 13.8% (11.5-14.5) Platelet Count 179x10^3/uL (140-400) 176x10^3/uL (140-400) Neutrophils (%) (Auto) 77% (31-73) 77% (31-73) Lymphocytes (%) (Auto) 11% (24-48) 11% (24-48) Monocytes (%) (Auto) 9% (0-9) 8% (0-9) Eosinophils (%) (Auto) 2% (0-3) 3% (0-3) Basophils (%) (Auto) 1% (0-3) 1% (0-3) Neutrophils # (Auto) 4.3x10^3uL (1.8-7.7) 5.1x10^3uL (1.8-7.7) Lymphocytes # (Auto) 0.6x10^3/uL (1.0-4.8) 0.8x10^3/uL (1.0-4.8) Monocytes # (Auto) 0.5x10^3/uL (0.0-1.1) 0.5x10^3/uL (0.0-1.1) Eosinophils # (Auto) 0.1x10^3/uL (0.0-0.7) 0.2x10^3/uL (0.0-0.7) Basophils # (Auto) 0.1x10^3/uL (0.0-0.2) 0.1x10^3/uL (0.0-0.2) Erythrocyte Sedimentation Rate 48 (0-25) Sodium Level 139mmol/L (136-145) 138mmol/L (136-145) Potassium Level 3.7mmol/L (3.5-5.1) 3.5mmol/L (3.5-5.1) Chloride Level 103mmol/L (98-107) 102mmol/L (98-107) Carbon Dioxide Level 26mmol/L (21-32) 28mmol/L (21-32) Anion Gap 10 (6-14) 8 (6-14) Blood Urea Nitrogen 20mg/dL (7-20) 11mg/dL (7-20) Creatinine 1.4mg/dL (0.6-1.0) 1.4mg/dL (0.6-1.0) Estimated GFR (Cockcroft-Gault) 36.4 36.4 Glucose Level 74mg/dL (70-99) 103mg/dL (70-99) Calcium Level 8.8mg/dL (8.5-10.1) 8.7mg/dL (8.5-10.1) Thyroid Stimulating Hormone (TSH) 89.995uIU/mL (0.358-3.74) Free Thyroxine 0.75ng/dL (0.76-1.46) Free Triiodothyronine (T3) pg/mL 0.91pg/mL (2.18-3.98) Total Triiodothyronine 58ng/dL (71-180) Urine Collection Type Unknown Urine Color Yellow Urine Clarity Clear Urine pH 6.0 Urine Specific [place] <=1.005 Urine Protein Negativemg/dL (NEG-TRACE) Urine Glucose (UA) Negativemg/dL (NEG) Urine Ketones (Stick) Negativemg/dL (NEG) Urine Blood Negative (NEG) Urine Nitrite Negative (NEG) Urine Bilirubin Negative (NEG) Urine Urobilinogen Dipstick 0.2mg/dL (0.2 mg/dL) Urine Leukocyte Esterase Negative (NEG) Urine RBC 0/HPF (0-2) Urine WBC 1-4/HPF (0-4) Urine Squamous Epithelial Cells Mod/LPF Urine Bacteria Few/HPF (0-FEW) Laboratory Tests Test 11/05/16 06:30 White Blood Count 6.6x10^3/uL (4.0-11.0) Red Blood Count 2.90x10^6/uL (3.50-5.40) Hemoglobin 10.0g/dL (12.0-15.5) Hematocrit 30.5% (36.0-47.0) Mean Corpuscular Volume 105fL (79-100) Mean Corpuscular Hemoglobin 34pg (25-35) Mean Corpuscular Hemoglobin Concent 33g/dL (31-37) Red Cell Distribution Width 13.8% (11.5-14.5) Platelet Count 176x10^3/uL (140-400) Neutrophils (%) (Auto) 77% (31-73) Lymphocytes (%) (Auto) 11% (24-48) Monocytes (%) (Auto) 8% (0-9) Eosinophils (%) (Auto) 3% (0-3) Basophils (%) (Auto) 1% (0-3) Neutrophils # (Auto) 5.1x10^3uL (1.8-7.7) Lymphocytes # (Auto) 0.8x10^3/uL (1.0-4.8) Monocytes # (Auto) 0.5x10^3/uL (0.0-1.1) Eosinophils # (Auto) 0.2x10^3/uL (0.0-0.7) Basophils # (Auto) 0.1x10^3/uL (0.0-0.2) Sodium Level 138mmol/L (136-145) Potassium Level 3.5mmol/L (3.5-5.1) Chloride Level 102mmol/L (98-107) Carbon Dioxide Level 28mmol/L (21-32) Anion Gap 8 (6-14) Blood Urea Nitrogen 11mg/dL (7-20) Creatinine 1.4mg/dL (0.6-1.0) Estimated GFR (Cockcroft-Gault) 36.4 Glucose Level 103mg/dL (70-99) Calcium Level 8.7mg/dL (8.5-10.1) Medications Current Medications Sodium Chloride 3 ml 3 ml PRN DAILY PRN IV AFTER MEDS AND BLOOD DRAWS; Start at 18:45 Potassium Chloride/Sodium Chloride (KCl 20 Meq-0.45% Nacl) 1,000 ml @ 100 mls/ hr Q10H IV Last administered on 11/05/16 09:20; Start 11/02/16 at 19:15 Acetaminophen (Tylenol) 650 mg PRN Q6HRS PRN PO MILD PAIN / TEMP Last administered on 11/04/16 19:54; Start 11/02/16 at 18:45 Allopurinol (Zyloprim) 100 mg DAILY PO Last administered on 11/05/16 09:21; Start 11/03/16 at 09:00 Amlodipine Besylate (Norvasc) 5 mg DAILY PO Last administered on 11/05/16 09:21 ; Start 11/03/16 at 09:00 Gabapentin (Neurontin) 100 mg BID PO Last administered on 11/05/16 09:21; Start 11/02/16 at 21:00 Levothyroxine Sodium (Synthroid) 75 mcg DAILY07 PO Last administered on 06:25; Start 11/03/16 at 07:00 Mirtazapine (Remeron) 15 mg QHS PO Last administered on 11/04/16 19:54; Start 11/02/16 at 21:00 Pantoprazole Sodium (Protonix) 40 mg DAILYAC PO Last administered on 11/05/16 09:21; Start 11/03/16 at 07:30 Hydrochlorothiazide (Hydrodiuril) 25 mg DAILY PO Last administered on 11/05/16 09:21; Start 11/03/16 at 09:00 Theophylline (Theodur) 200 mg BID PO Last administered on 11/03/16 10:09; Start 11/02/16 at 21:00; Stop 11/03/16 at 14:02; Status DC Acetaminophen/ Hydrocodone Bitart (Lortab 5/325) 1 tab PRN Q6HRS PRN PO PAIN; Start 11/02/16 at 20:45; Status Cancel Hydromorphone HCl (Dilaudid) 4 mg PRN Q4HRS PRN PO PAIN Last administered on 16:10; Start 11/02/16 at 21:45 Cyanocobalamin (Vitamin B-12) 1,000 mcg DAILY PO Last administered on 11/05/16 09:21; Start 11/03/16 at 12:30 Enoxaparin Sodium (Lovenox 30mg Syringe) 30 mg DAILY SQ Last administered on 09:21; Start 11/03/16 at 12:30 Theophylline 130 mg Q8HRS PO Last administered on 11/05/16 14:24; Start at 22:00 Gadobutrol (Gadavist) 4 mmol 1X ONCE IV ; Start 11/04/16 at 13:00; Stop 11/04/16 at 13:03; Status DC Calcium/Vitamin D (Oscal D 500mg/ 200uts) 1 tab BIDWMEALS PO ; Start 11/05/16 at 17:00 Active Scripts Active Reported Remeron (Mirtazapine) 15 Mg Tablet 1 Tab PO QHS Theophylline (Theophylline Anhydrous) 400 Mg Tablet.er 200 Mg PO TID Potassium Chloride 20 Meq Tablet.er 20 Meq PO BID Nexium Capsule (Esomeprazole Magnesium) 40 Mg Capsule.dr 1 Cap PO DAILY Levothyroxine Sodium 75 Mcg Tablet 1 Tab PO DAILY Hydromorphone Hcl 4 Mg Tablet 1 Tab PO QID Hydrochlorothiazide Tablet (Hydrochlorothiazide) 50 Mg Tablet 25 Mg PO DAILY Gabapentin 100 Mg Capsule 100 Mg PO BID Amlodipine Besylate 5 Mg Tablet 5 Mg PO DAILY Allopurinol 100 Mg Tablet 1 Tab PO BID Vitals/I & O Vital Sign - Last 24 Hours 11/04/16 11/04/16 11/05/16 11/05/16 19:39 20:20 03:09 07:00 Temp 98.6 98.4 98.4 98.6 98.4 98.4 Pulse 99 109 102 Resp 18 B/P 140/85 146/82 138/81 Pulse Ox 96 95 95 O2 Delivery Room Air Room Air Room Air Room Air 11/05/16 11/05/16 11/05/16 11/05/16 08:00 09:21 11:00 15:00 Temp 98.1 93.6 98.1 93.6 Pulse 102 95 91 Resp B/P 138/81 138/73 128/73 Pulse Ox 93 93 O2 Delivery Room Air Room Air Room Air Intake and Output 11/04/16 11/04/16 11/05/16 15:00 23:00 07:00 Intake Total 400 ml 250 ml Balance 400 ml 250 ml MYLES MACK MD Nov 05, 2016 17:23
[2016-11-05 19:44] VITALS: BP 145/68
[2016-11-05] MEDS: MIRTAZAPINE 15 MG TABLET PO SCH (21:07)
[2016-11-06] MEDS: LEVOTHYROXINE 75 MCG TABLET PO SCH (06:10)
[2016-11-06 06:33] LABS: BASO % 0 % (0-3); EOS % 2 % (0-3); HEMATOCRIT 29.2 % (36.0-47.0); HEMOGLOBIN 9.7 g/dL (12.0-15.5); LYMPH # 0.6 x10^3/uL (1.0-4.8); LYMPH % 7 % (24-48); MEAN CORPUSCULAR HEMOGLOBIN 34 pg (25-35); MEAN CORPUSCULAR HGB CONC 33 g/dL (31-37); MEAN CORPUSCULAR VOLUME 104 fL (79-100); MONO % 7 % (0-9); NEUT % 83 % (31-73); PLATELET COUNT 181 x10^3/uL (140-400); RED BLOOD COUNT 2.81 x10^6/uL (3.50-5.40); RED CELL DISTRIBUTION WIDTH 13.7 % (11.5-14.5); WHITE BLOOD COUNT 8.3 x10^3/uL (4.0-11.0)
[2016-11-06 06:55] LABS: CALCIUM 8.5 mg/dL (8.5-10.1); CREATININE 1.3 mg/dL (0.6-1.0); GFR 39.6; POTASSIUM 3.3 mmol/L (3.5-5.1)
[2016-11-06 07:00] VITALS: BP 130/72
[2016-11-06] MEDS: POTASSIUM CL 20MEQ-0.45% NACL 1,000 ML IV SCH ×3 (08:07→23:15)
[2016-11-06] MEDS: THEOPHYLLINE 80 MG/15 ML PO SCH ×3 (08:09→22:12)
[2016-11-06] MEDS: PANTOPRAZOLE 40 MG TABLET. PO SCH (08:10)
[2016-11-06] MEDS: ALLOPURINOL 100 MG TABLET. PO SCH (08:10)
[2016-11-06] MEDS: CALCIUM CARB/VIT D3 500/200 TABLET PO SCH ×2 (08:10→17:29)
[2016-11-06] MEDS: HYDROCHLOROTHIAZIDE 25 MG TABLET PO SCH (08:10)
[2016-11-06] MEDS: CYANOCOBALAMIN (VITAMIN B-12) 1,000 MCG TABLET. PO SCH (08:14)
[2016-11-06] MEDS: GABAPENTIN 100 MG CAPSULE. PO SCH ×2 (08:14→21:19)
[2016-11-06] MEDS: ENOXAPARIN 30 MG/0.3 ML DISP.SYRIN. SQ SCH (08:14)
[2016-11-06] MEDS: AMLODIPINE BESYLATE 5 MG TABLET PO SCH (08:14)
[2016-11-06 11:00] VITALS: BP 129/66
[2016-11-06] MEDS: HYDROMORPHONE 4 MG TABLET. PO PRN ×2 (11:16→21:19)
--- NOTE | 2016-11-06 12:02 | PDOC ---
PROGRESS NOTES Assessment Problems Medical Problems: (1) Myxedema coma Status: Acute Metabolic encephalopathy. Myxedema, TSH 172.5 Non small cell lung cancer stage III History of seizure in 1970 Plan Treat hypothyroidism. Discussed with family Will follow at intervals Subjective No complaints Objective Vital Signs Date Time Temp Pulse Resp B/P Pulse Ox O2 Delivery O2 Flow Rate FiO2 11/06/16 11:00 97.9 104 18 129/66 93 Room Air 97.9 Intake and Output 11/06/16 07:00 Intake Total 440 ml Output Total 970 ml Balance -530 ml Intake Oral 440 ml Output Urine Total 970 ml PHYSICAL EXAM Alert. Oriented place and person, knows month and year. PERRL. EOMI. CN: no focal findings. Muscle tone: normal. Muscle strength: 4 -/5 DTR: 1+ Plantar reflex: flexor Gait: not examined in bed. Sensory exam: no abnormal findings. No cerebellar signs elicited. Review of Relevant I have reviewed the following items shirin (where applicable) has been applied. Labs Laboratory Tests Test 11/04/16 15:10 11/05/16 06:30 11/06/16 06:15 Urine Collection Type Unknown Urine Color Yellow Urine Clarity Clear Urine pH 6.0 Urine Specific [place] <=1.005 Urine Protein Negativemg/dL (NEG-TRACE) Urine Glucose (UA) Negativemg/dL (NEG) Urine Ketones (Stick) Negativemg/dL (NEG) Urine Blood Negative (NEG) Urine Nitrite Negative (NEG) Urine Bilirubin Negative (NEG) Urine Urobilinogen Dipstick 0.2mg/dL (0.2 mg/dL) Urine Leukocyte Esterase Negative (NEG) Urine RBC 0/HPF (0-2) Urine WBC 1-4/HPF (0-4) Urine Squamous Epithelial Cells Mod/LPF Urine Bacteria Few/HPF (0-FEW) White Blood Count 6.6x10^3/uL (4.0-11.0) 8.3x10^3/uL (4.0-11.0) Red Blood Count 2.90x10^6/uL (3.50-5.40) 2.81x10^6/uL (3.50-5.40) Hemoglobin 10.0g/dL (12.0-15.5) 9.7g/dL (12.0-15.5) Hematocrit 30.5% (36.0-47.0) 29.2% (36.0-47.0) Mean Corpuscular Volume 105fL (79-100) 104fL (79-100) Mean Corpuscular Hemoglobin 34pg (25-35) 34pg (25-35) Mean Corpuscular Hemoglobin Concent 33g/dL (31-37) 33g/dL (31-37) Red Cell Distribution Width 13.8% (11.5-14.5) 13.7% (11.5-14.5) Platelet Count 176x10^3/uL (140-400) 181x10^3/uL (140-400) Neutrophils (%) (Auto) 77% (31-73) 83% (31-73) Lymphocytes (%) (Auto) 11% (24-48) 7% (24-48) Monocytes (%) (Auto) 8% (0-9) 7% (0-9) Eosinophils (%) (Auto) 3% (0-3) 2% (0-3) Basophils (%) (Auto) 1% (0-3) 0% (0-3) Neutrophils # (Auto) 5.1x10^3uL (1.8-7.7) 6.9x10^3uL (1.8-7.7) Lymphocytes # (Auto) 0.8x10^3/uL (1.0-4.8) 0.6x10^3/uL (1.0-4.8) Monocytes # (Auto) 0.5x10^3/uL (0.0-1.1) 0.6x10^3/uL (0.0-1.1) Eosinophils # (Auto) 0.2x10^3/uL (0.0-0.7) 0.2x10^3/uL (0.0-0.7) Basophils # (Auto) 0.1x10^3/uL (0.0-0.2) 0.0x10^3/uL (0.0-0.2) Sodium Level 138mmol/L (136-145) 139mmol/L (136-145) Potassium Level 3.5mmol/L (3.5-5.1) 3.3mmol/L (3.5-5.1) Chloride Level 102mmol/L (98-107) 102mmol/L (98-107) Carbon Dioxide Level 28mmol/L (21-32) 25mmol/L (21-32) Anion Gap 8 (6-14) 12 (6-14) Blood Urea Nitrogen 11mg/dL (7-20) 9mg/dL (7-20) Creatinine 1.4mg/dL (0.6-1.0) 1.3mg/dL (0.6-1.0) Estimated GFR (Cockcroft-Gault) 36.4 39.6 Glucose Level 103mg/dL (70-99) 95mg/dL (70-99) Calcium Level 8.7mg/dL (8.5-10.1) 8.5mg/dL (8.5-10.1) Laboratory Tests Test 11/06/16 06:15 White Blood Count 8.3x10^3/uL (4.0-11.0) Red Blood Count 2.81x10^6/uL (3.50-5.40) Hemoglobin 9.7g/dL (12.0-15.5) Hematocrit 29.2% (36.0-47.0) Mean Corpuscular Volume 104fL (79-100) Mean Corpuscular Hemoglobin 34pg (25-35) Mean Corpuscular Hemoglobin Concent 33g/dL (31-37) Red Cell Distribution Width 13.7% (11.5-14.5) Platelet Count 181x10^3/uL (140-400) Neutrophils (%) (Auto) 83% (31-73) Lymphocytes (%) (Auto) 7% (24-48) Monocytes (%) (Auto) 7% (0-9) Eosinophils (%) (Auto) 2% (0-3) Basophils (%) (Auto) 0% (0-3) Neutrophils # (Auto) 6.9x10^3uL (1.8-7.7) Lymphocytes # (Auto) 0.6x10^3/uL (1.0-4.8) Monocytes # (Auto) 0.6x10^3/uL (0.0-1.1) Eosinophils # (Auto) 0.2x10^3/uL (0.0-0.7) Basophils # (Auto) 0.0x10^3/uL (0.0-0.2) Sodium Level 139mmol/L (136-145) Potassium Level 3.3mmol/L (3.5-5.1) Chloride Level 102mmol/L (98-107) Carbon Dioxide Level 25mmol/L (21-32) Anion Gap 12 (6-14) Blood Urea Nitrogen 9mg/dL (7-20) Creatinine 1.3mg/dL (0.6-1.0) Estimated GFR (Cockcroft-Gault) 39.6 Glucose Level 95mg/dL (70-99) Calcium Level 8.5mg/dL (8.5-10.1) Medications Current Medications Sodium Chloride 3 ml 3 ml PRN DAILY PRN IV AFTER MEDS AND BLOOD DRAWS; Start at 18:45 Potassium Chloride/Sodium Chloride (KCl 20 Meq-0.45% Nacl) 1,000 ml @ 100 mls/ hr Q10H IV Last administered on 11/06/16 08:07; Start 11/02/16 at 19:15 Acetaminophen (Tylenol) 650 mg PRN Q6HRS PRN PO MILD PAIN / TEMP Last administered on 11/04/16 19:54; Start 11/02/16 at 18:45 Allopurinol (Zyloprim) 100 mg DAILY PO Last administered on 11/06/16 08:10; Start 11/03/16 at 09:00 Amlodipine Besylate (Norvasc) 5 mg DAILY PO Last administered on 11/06/16 08:14 ; Start 11/03/16 at 09:00 Gabapentin (Neurontin) 100 mg BID PO Last administered on 11/06/16 08:14; Start 11/02/16 at 21:00 Levothyroxine Sodium (Synthroid) 75 mcg DAILY07 PO Last administered on 06:10; Start 11/03/16 at 07:00 Mirtazapine (Remeron) 15 mg QHS PO Last administered on 11/05/16 21:07; Start 11/02/16 at 21:00 Pantoprazole Sodium (Protonix) 40 mg DAILYAC PO Last administered on 11/06/16 08:10; Start 11/03/16 at 07:30 Hydrochlorothiazide (Hydrodiuril) 25 mg DAILY PO Last administered on 11/06/16 08:10; Start 11/03/16 at 09:00 Theophylline (Theodur) 200 mg BID PO Last administered on 11/03/16 10:09; Start 11/02/16 at 21:00; Stop 11/03/16 at 14:02; Status DC Acetaminophen/ Hydrocodone Bitart (Lortab 5/325) 1 tab PRN Q6HRS PRN PO PAIN; Start 11/02/16 at 20:45; Status Cancel Hydromorphone HCl (Dilaudid) 4 mg PRN Q4HRS PRN PO PAIN Last administered on 11:16; Start 11/02/16 at 21:45 Cyanocobalamin (Vitamin B-12) 1,000 mcg DAILY PO Last administered on 11/06/16 08:14; Start 11/03/16 at 12:30 Enoxaparin Sodium (Lovenox 30mg Syringe) 30 mg DAILY SQ Last administered on 08:14; Start 11/03/16 at 12:30 Theophylline 130 mg Q8HRS PO Last administered on 11/06/16 08:09; Start at 22:00 Gadobutrol (Gadavist) 4 mmol 1X ONCE IV ; Start 11/04/16 at 13:00; Stop 11/04/16 at 13:03; Status DC Calcium/Vitamin D (Oscal D 500mg/ 200uts) 1 tab BIDWMEALS PO Last administered on 11/06/16 08:10; Start 11/05/16 at 17:00 Active Scripts Active Reported Remeron (Mirtazapine) 15 Mg Tablet 1 Tab PO QHS Theophylline (Theophylline Anhydrous) 400 Mg Tablet.er 200 Mg PO TID Potassium Chloride 20 Meq Tablet.er 20 Meq PO BID Nexium Capsule (Esomeprazole Magnesium) 40 Mg Capsule.dr 1 Cap PO DAILY Levothyroxine Sodium 75 Mcg Tablet 1 Tab PO DAILY Hydromorphone Hcl 4 Mg Tablet 1 Tab PO QID Hydrochlorothiazide Tablet (Hydrochlorothiazide) 50 Mg Tablet 25 Mg PO DAILY Gabapentin 100 Mg Capsule 100 Mg PO BID Amlodipine Besylate 5 Mg Tablet 5 Mg PO DAILY Allopurinol 100 Mg Tablet 1 Tab PO BID Vitals/I & O Vital Sign - Last 24 Hours 11/05/16 11/05/16 11/05/16 11/06/16 15:00 19:44 20:01 07:00 Temp 93.6 100.0 98.0 93.6 100.0 98.0 Pulse 91 104 103 Resp 18 18 18 B/P 128/73 145/68 130/72 Pulse Ox 93 94 93 O2 Delivery Room Air Room Air Room Air Room Air 11/06/16 11/06/16 11/06/16 08:00 08:14 11:00 Temp 97.9 97.9 Pulse 93 104 Resp 18 B/P 126/74 129/66 Pulse Ox 93 O2 Delivery Room Air Room Air Intake and Output 11/05/16 11/05/16 11/06/16 15:00 23:00 07:00 Intake Total 240 ml 200 ml Output Total 420 ml 550 ml Balance -180 ml -350 ml Images Brain MRI, 11/04: 1. Microvascular changes in the periventricular white matter. 2. No acute CVA noted. PEDRITO ZAIDI MD Nov 06, 2016 12:02
--- NOTE | 2016-11-06 13:56 | PDOC ---
PROGRESS NOTES Subjective Subjective Patient less confused. Objective Objective Vital Signs Date Time Temp Pulse Resp B/P Pulse Ox O2 Delivery O2 Flow Rate FiO2 11/06/16 11:00 97.9 104 18 129/66 93 Room Air 97.9 Intake and Output 11/06/16 07:00 Intake Total 440 ml Output Total 970 ml Balance -530 ml Intake Oral 440 ml Output Urine Total 970 ml Physical Exam Physical Exam No significant changes in cardiac exam Assessment Assessment Patient compensated cardiac simons. I agree with present plan. She may be able to go home with home health soon. Problems Medical Problems: (1) Myxedema coma Status: Acute Comment Review of Relevant I have reviewed the following items shirin (where applicable) has been applied. Labs Laboratory Tests Test 11/04/16 15:10 11/05/16 06:30 11/06/16 06:15 Urine Collection Type Unknown Urine Color Yellow Urine Clarity Clear Urine pH 6.0 Urine Specific [place] <=1.005 Urine Protein Negativemg/dL (NEG-TRACE) Urine Glucose (UA) Negativemg/dL (NEG) Urine Ketones (Stick) Negativemg/dL (NEG) Urine Blood Negative (NEG) Urine Nitrite Negative (NEG) Urine Bilirubin Negative (NEG) Urine Urobilinogen Dipstick 0.2mg/dL (0.2 mg/dL) Urine Leukocyte Esterase Negative (NEG) Urine RBC 0/HPF (0-2) Urine WBC 1-4/HPF (0-4) Urine Squamous Epithelial Cells Mod/LPF Urine Bacteria Few/HPF (0-FEW) White Blood Count 6.6x10^3/uL (4.0-11.0) 8.3x10^3/uL (4.0-11.0) Red Blood Count 2.90x10^6/uL (3.50-5.40) 2.81x10^6/uL (3.50-5.40) Hemoglobin 10.0g/dL (12.0-15.5) 9.7g/dL (12.0-15.5) Hematocrit 30.5% (36.0-47.0) 29.2% (36.0-47.0) Mean Corpuscular Volume 105fL (79-100) 104fL (79-100) Mean Corpuscular Hemoglobin 34pg (25-35) 34pg (25-35) Mean Corpuscular Hemoglobin Concent 33g/dL (31-37) 33g/dL (31-37) Red Cell Distribution Width 13.8% (11.5-14.5) 13.7% (11.5-14.5) Platelet Count 176x10^3/uL (140-400) 181x10^3/uL (140-400) Neutrophils (%) (Auto) 77% (31-73) 83% (31-73) Lymphocytes (%) (Auto) 11% (24-48) 7% (24-48) Monocytes (%) (Auto) 8% (0-9) 7% (0-9) Eosinophils (%) (Auto) 3% (0-3) 2% (0-3) Basophils (%) (Auto) 1% (0-3) 0% (0-3) Neutrophils # (Auto) 5.1x10^3uL (1.8-7.7) 6.9x10^3uL (1.8-7.7) Lymphocytes # (Auto) 0.8x10^3/uL (1.0-4.8) 0.6x10^3/uL (1.0-4.8) Monocytes # (Auto) 0.5x10^3/uL (0.0-1.1) 0.6x10^3/uL (0.0-1.1) Eosinophils # (Auto) 0.2x10^3/uL (0.0-0.7) 0.2x10^3/uL (0.0-0.7) Basophils # (Auto) 0.1x10^3/uL (0.0-0.2) 0.0x10^3/uL (0.0-0.2) Sodium Level 138mmol/L (136-145) 139mmol/L (136-145) Potassium Level 3.5mmol/L (3.5-5.1) 3.3mmol/L (3.5-5.1) Chloride Level 102mmol/L (98-107) 102mmol/L (98-107) Carbon Dioxide Level 28mmol/L (21-32) 25mmol/L (21-32) Anion Gap 8 (6-14) 12 (6-14) Blood Urea Nitrogen 11mg/dL (7-20) 9mg/dL (7-20) Creatinine 1.4mg/dL (0.6-1.0) 1.3mg/dL (0.6-1.0) Estimated GFR (Cockcroft-Gault) 36.4 39.6 Glucose Level 103mg/dL (70-99) 95mg/dL (70-99) Calcium Level 8.7mg/dL (8.5-10.1) 8.5mg/dL (8.5-10.1) Laboratory Tests Test 11/06/16 06:15 White Blood Count 8.3x10^3/uL (4.0-11.0) Red Blood Count 2.81x10^6/uL (3.50-5.40) Hemoglobin 9.7g/dL (12.0-15.5) Hematocrit 29.2% (36.0-47.0) Mean Corpuscular Volume 104fL (79-100) Mean Corpuscular Hemoglobin 34pg (25-35) Mean Corpuscular Hemoglobin Concent 33g/dL (31-37) Red Cell Distribution Width 13.7% (11.5-14.5) Platelet Count 181x10^3/uL (140-400) Neutrophils (%) (Auto) 83% (31-73) Lymphocytes (%) (Auto) 7% (24-48) Monocytes (%) (Auto) 7% (0-9) Eosinophils (%) (Auto) 2% (0-3) Basophils (%) (Auto) 0% (0-3) Neutrophils # (Auto) 6.9x10^3uL (1.8-7.7) Lymphocytes # (Auto) 0.6x10^3/uL (1.0-4.8) Monocytes # (Auto) 0.6x10^3/uL (0.0-1.1) Eosinophils # (Auto) 0.2x10^3/uL (0.0-0.7) Basophils # (Auto) 0.0x10^3/uL (0.0-0.2) Sodium Level 139mmol/L (136-145) Potassium Level 3.3mmol/L (3.5-5.1) Chloride Level 102mmol/L (98-107) Carbon Dioxide Level 25mmol/L (21-32) Anion Gap 12 (6-14) Blood Urea Nitrogen 9mg/dL (7-20) Creatinine 1.3mg/dL (0.6-1.0) Estimated GFR (Cockcroft-Gault) 39.6 Glucose Level 95mg/dL (70-99) Calcium Level 8.5mg/dL (8.5-10.1) Medications Current Medications Sodium Chloride 3 ml 3 ml PRN DAILY PRN IV AFTER MEDS AND BLOOD DRAWS; Start at 18:45 Potassium Chloride/Sodium Chloride (KCl 20 Meq-0.45% Nacl) 1,000 ml @ 100 mls/ hr Q10H IV Last administered on 11/06/16 08:07; Start 11/02/16 at 19:15 Acetaminophen (Tylenol) 650 mg PRN Q6HRS PRN PO MILD PAIN / TEMP Last administered on 11/04/16 19:54; Start 11/02/16 at 18:45 Allopurinol (Zyloprim) 100 mg DAILY PO Last administered on 11/06/16 08:10; Start 11/03/16 at 09:00 Amlodipine Besylate (Norvasc) 5 mg DAILY PO Last administered on 11/06/16 08:14 ; Start 11/03/16 at 09:00 Gabapentin (Neurontin) 100 mg BID PO Last administered on 11/06/16 08:14; Start 11/02/16 at 21:00 Levothyroxine Sodium (Synthroid) 75 mcg DAILY07 PO Last administered on 06:10; Start 11/03/16 at 07:00 Mirtazapine (Remeron) 15 mg QHS PO Last administered on 11/05/16 21:07; Start 11/02/16 at 21:00 Pantoprazole Sodium (Protonix) 40 mg DAILYAC PO Last administered on 11/06/16 08:10; Start 11/03/16 at 07:30 Hydrochlorothiazide (Hydrodiuril) 25 mg DAILY PO Last administered on 11/06/16 08:10; Start 11/03/16 at 09:00 Theophylline (Theodur) 200 mg BID PO Last administered on 11/03/16 10:09; Start 11/02/16 at 21:00; Stop 11/03/16 at 14:02; Status DC Acetaminophen/ Hydrocodone Bitart (Lortab 5/325) 1 tab PRN Q6HRS PRN PO PAIN; Start 11/02/16 at 20:45; Status Cancel Hydromorphone HCl (Dilaudid) 4 mg PRN Q4HRS PRN PO PAIN Last administered on 11:16; Start 11/02/16 at 21:45 Cyanocobalamin (Vitamin B-12) 1,000 mcg DAILY PO Last administered on 11/06/16 08:14; Start 11/03/16 at 12:30 Enoxaparin Sodium (Lovenox 30mg Syringe) 30 mg DAILY SQ Last administered on 08:14; Start 11/03/16 at 12:30 Theophylline 130 mg Q8HRS PO Last administered on 11/06/16 13:12; Start at 22:00 Gadobutrol (Gadavist) 4 mmol 1X ONCE IV ; Start 11/04/16 at 13:00; Stop 11/04/16 at 13:03; Status DC Calcium/Vitamin D (Oscal D 500mg/ 200uts) 1 tab BIDWMEALS PO Last administered on 11/06/16 08:10; Start 11/05/16 at 17:00 Potassium Chloride (Klor-Con) 20 meq 1X ONCE PO ; Start 11/06/16 at 14:00; Stop 11/06/16 at 14:01 Active Scripts Active Reported Remeron (Mirtazapine) 15 Mg Tablet 1 Tab PO QHS Theophylline (Theophylline Anhydrous) 400 Mg Tablet.er 200 Mg PO TID Potassium Chloride 20 Meq Tablet.er 20 Meq PO BID Nexium Capsule (Esomeprazole Magnesium) 40 Mg Capsule.dr 1 Cap PO DAILY Levothyroxine Sodium 75 Mcg Tablet 1 Tab PO DAILY Hydromorphone Hcl 4 Mg Tablet 1 Tab PO QID Hydrochlorothiazide Tablet (Hydrochlorothiazide) 50 Mg Tablet 25 Mg PO DAILY Gabapentin 100 Mg Capsule 100 Mg PO BID Amlodipine Besylate 5 Mg Tablet 5 Mg PO DAILY Allopurinol 100 Mg Tablet 1 Tab PO BID Vitals/I & O Vital Sign - Last 24 Hours 11/05/16 11/05/16 11/05/16 11/06/16 15:00 19:44 20:01 07:00 Temp 93.6 100.0 98.0 93.6 100.0 98.0 Pulse 91 104 103 Resp 18 18 18 B/P 128/73 145/68 130/72 Pulse Ox 93 94 93 O2 Delivery Room Air Room Air Room Air Room Air 11/06/16 11/06/16 11/06/16 08:00 08:14 11:00 Temp 97.9 97.9 Pulse 93 104 Resp 18 B/P 126/74 129/66 Pulse Ox 93 O2 Delivery Room Air Room Air Intake and Output 11/05/16 11/05/16 11/06/16 15:00 23:00 07:00 Intake Total 240 ml 200 ml Output Total 420 ml 550 ml Balance -180 ml -350 ml MYLES MACK MD Nov 06, 2016 13:55
[2016-11-06] MEDS ORDERED: POTASSIUM CHLORIDE 20 MEQ TABLET.ER. PO ONE (14:00)
--- NOTE | 2016-11-06 14:03 | PDOC ---
PROGRESS NOTES Chief Complaint Chief Complaint encephalopathy, metabolic ASSESSMENT AND PLAN: 1. AMS: metabolic encephalopathy with severe hypothyroidism, lowish B12: improving. MRI w/o evidence of mets 2. Hypothyroidism: repletion restarted. T4 low normal now 3. NSCLC, stage 3 post chemo and RT: stable by restaging CT this week 4. CAD: no acute issues. cont home meds. echo with nl LVEF 5. Asthma: no respir issues. nebs PRN, theophylline 6. CKD3: stable 7. Macrocytic anemia: 2/2 hypothyroidism; borderline low B12, on PO repletion 8. (Sub) acute 9L rib fx: eval for osteoporosis. vit D level pending. start Ca/VitD 9. Depression: on remeron 10. OA: s/p back surgeries; on chronic narcotics 11. Constipation: narcotics and myxedema. bowel regimen 12. Prophylaxis: lovenox, PPI 13. Dispo: rehab in next couple of days History of Present Illness History of Present Illness no change family concerned that she had better str. 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) Skin: No rashes Labs LABS Laboratory Tests Test 11/06/16 06:15 White Blood Count 8.3x10^3/uL (4.0-11.0) Red Blood Count 2.81x10^6/uL (3.50-5.40) Hemoglobin 9.7g/dL (12.0-15.5) Hematocrit 29.2% (36.0-47.0) Mean Corpuscular Volume 104fL (79-100) Mean Corpuscular Hemoglobin 34pg (25-35) Mean Corpuscular Hemoglobin Concent 33g/dL (31-37) Red Cell Distribution Width 13.7% (11.5-14.5) Platelet Count 181x10^3/uL (140-400) Neutrophils (%) (Auto) 83% (31-73) Lymphocytes (%) (Auto) 7% (24-48) Monocytes (%) (Auto) 7% (0-9) Eosinophils (%) (Auto) 2% (0-3) Basophils (%) (Auto) 0% (0-3) Neutrophils # (Auto) 6.9x10^3uL (1.8-7.7) Lymphocytes # (Auto) 0.6x10^3/uL (1.0-4.8) Monocytes # (Auto) 0.6x10^3/uL (0.0-1.1) Eosinophils # (Auto) 0.2x10^3/uL (0.0-0.7) Basophils # (Auto) 0.0x10^3/uL (0.0-0.2) Sodium Level 139mmol/L (136-145) Potassium Level 3.3mmol/L (3.5-5.1) Chloride Level 102mmol/L (98-107) Carbon Dioxide Level 25mmol/L (21-32) Anion Gap 12 (6-14) Blood Urea Nitrogen 9mg/dL (7-20) Creatinine 1.3mg/dL (0.6-1.0) Estimated GFR (Cockcroft-Gault) 39.6 Glucose Level 95mg/dL (70-99) Calcium Level 8.5mg/dL (8.5-10.1) Assessment and Plan Assessmemt and Plan cont thyroid replacement, replace K+ PT and OT MRI brain w/ contrast Problems Medical Problems: (1) Myxedema coma Status: Acute Problems: Comment Review of Relevant I have reviewed the following items shirin (where applicable) has been applied. Labs Laboratory Tests Test 11/04/16 15:10 11/05/16 06:30 11/06/16 06:15 Urine Collection Type Unknown Urine Color Yellow Urine Clarity Clear Urine pH 6.0 Urine Specific [place] <=1.005 Urine Protein Negativemg/dL (NEG-TRACE) Urine Glucose (UA) Negativemg/dL (NEG) Urine Ketones (Stick) Negativemg/dL (NEG) Urine Blood Negative (NEG) Urine Nitrite Negative (NEG) Urine Bilirubin Negative (NEG) Urine Urobilinogen Dipstick 0.2mg/dL (0.2 mg/dL) Urine Leukocyte Esterase Negative (NEG) Urine RBC 0/HPF (0-2) Urine WBC 1-4/HPF (0-4) Urine Squamous Epithelial Cells Mod/LPF Urine Bacteria Few/HPF (0-FEW) White Blood Count 6.6x10^3/uL (4.0-11.0) 8.3x10^3/uL (4.0-11.0) Red Blood Count 2.90x10^6/uL (3.50-5.40) 2.81x10^6/uL (3.50-5.40) Hemoglobin 10.0g/dL (12.0-15.5) 9.7g/dL (12.0-15.5) Hematocrit 30.5% (36.0-47.0) 29.2% (36.0-47.0) Mean Corpuscular Volume 105fL (79-100) 104fL (79-100) Mean Corpuscular Hemoglobin 34pg (25-35) 34pg (25-35) Mean Corpuscular Hemoglobin Concent 33g/dL (31-37) 33g/dL (31-37) Red Cell Distribution Width 13.8% (11.5-14.5) 13.7% (11.5-14.5) Platelet Count 176x10^3/uL (140-400) 181x10^3/uL (140-400) Neutrophils (%) (Auto) 77% (31-73) 83% (31-73) Lymphocytes (%) (Auto) 11% (24-48) 7% (24-48) Monocytes (%) (Auto) 8% (0-9) 7% (0-9) Eosinophils (%) (Auto) 3% (0-3) 2% (0-3) Basophils (%) (Auto) 1% (0-3) 0% (0-3) Neutrophils # (Auto) 5.1x10^3uL (1.8-7.7) 6.9x10^3uL (1.8-7.7) Lymphocytes # (Auto) 0.8x10^3/uL (1.0-4.8) 0.6x10^3/uL (1.0-4.8) Monocytes # (Auto) 0.5x10^3/uL (0.0-1.1) 0.6x10^3/uL (0.0-1.1) Eosinophils # (Auto) 0.2x10^3/uL (0.0-0.7) 0.2x10^3/uL (0.0-0.7) Basophils # (Auto) 0.1x10^3/uL (0.0-0.2) 0.0x10^3/uL (0.0-0.2) Sodium Level 138mmol/L (136-145) 139mmol/L (136-145) Potassium Level 3.5mmol/L (3.5-5.1) 3.3mmol/L (3.5-5.1) Chloride Level 102mmol/L (98-107) 102mmol/L (98-107) Carbon Dioxide Level 28mmol/L (21-32) 25mmol/L (21-32) Anion Gap 8 (6-14) 12 (6-14) Blood Urea Nitrogen 11mg/dL (7-20) 9mg/dL (7-20) Creatinine 1.4mg/dL (0.6-1.0) 1.3mg/dL (0.6-1.0) Estimated GFR (Cockcroft-Gault) 36.4 39.6 Glucose Level 103mg/dL (70-99) 95mg/dL (70-99) Calcium Level 8.7mg/dL (8.5-10.1) 8.5mg/dL (8.5-10.1) Laboratory Tests Test 11/06/16 06:15 White Blood Count 8.3x10^3/uL (4.0-11.0) Red Blood Count 2.81x10^6/uL (3.50-5.40) Hemoglobin 9.7g/dL (12.0-15.5) Hematocrit 29.2% (36.0-47.0) Mean Corpuscular Volume 104fL (79-100) Mean Corpuscular Hemoglobin 34pg (25-35) Mean Corpuscular Hemoglobin Concent 33g/dL (31-37) Red Cell Distribution Width 13.7% (11.5-14.5) Platelet Count 181x10^3/uL (140-400) Neutrophils (%) (Auto) 83% (31-73) Lymphocytes (%) (Auto) 7% (24-48) Monocytes (%) (Auto) 7% (0-9) Eosinophils (%) (Auto) 2% (0-3) Basophils (%) (Auto) 0% (0-3) Neutrophils # (Auto) 6.9x10^3uL (1.8-7.7) Lymphocytes # (Auto) 0.6x10^3/uL (1.0-4.8) Monocytes # (Auto) 0.6x10^3/uL (0.0-1.1) Eosinophils # (Auto) 0.2x10^3/uL (0.0-0.7) Basophils # (Auto) 0.0x10^3/uL (0.0-0.2) Sodium Level 139mmol/L (136-145) Potassium Level 3.3mmol/L (3.5-5.1) Chloride Level 102mmol/L (98-107) Carbon Dioxide Level 25mmol/L (21-32) Anion Gap 12 (6-14) Blood Urea Nitrogen 9mg/dL (7-20) Creatinine 1.3mg/dL (0.6-1.0) Estimated GFR (Cockcroft-Gault) 39.6 Glucose Level 95mg/dL (70-99) Calcium Level 8.5mg/dL (8.5-10.1) Medications Current Medications Sodium Chloride 3 ml 3 ml PRN DAILY PRN IV AFTER MEDS AND BLOOD DRAWS; Start at 18:45 Potassium Chloride/Sodium Chloride (KCl 20 Meq-0.45% Nacl) 1,000 ml @ 100 mls/ hr Q10H IV Last administered on 11/06/16 08:07; Start 11/02/16 at 19:15 Acetaminophen (Tylenol) 650 mg PRN Q6HRS PRN PO MILD PAIN / TEMP Last administered on 11/04/16 19:54; Start 11/02/16 at 18:45 Allopurinol (Zyloprim) 100 mg DAILY PO Last administered on 11/06/16 08:10; Start 11/03/16 at 09:00 Amlodipine Besylate (Norvasc) 5 mg DAILY PO Last administered on 11/06/16 08:14 ; Start 11/03/16 at 09:00 Gabapentin (Neurontin) 100 mg BID PO Last administered on 11/06/16 08:14; Start 11/02/16 at 21:00 Levothyroxine Sodium (Synthroid) 75 mcg DAILY07 PO Last administered on 06:10; Start 11/03/16 at 07:00 Mirtazapine (Remeron) 15 mg QHS PO Last administered on 11/05/16 21:07; Start 11/02/16 at 21:00 Pantoprazole Sodium (Protonix) 40 mg DAILYAC PO Last administered on 11/06/16 08:10; Start 11/03/16 at 07:30 Hydrochlorothiazide (Hydrodiuril) 25 mg DAILY PO Last administered on 11/06/16 08:10; Start 11/03/16 at 09:00 Theophylline (Theodur) 200 mg BID PO Last administered on 11/03/16 10:09; Start 11/02/16 at 21:00; Stop 11/03/16 at 14:02; Status DC Acetaminophen/ Hydrocodone Bitart (Lortab 5/325) 1 tab PRN Q6HRS PRN PO PAIN; Start 11/02/16 at 20:45; Status Cancel Hydromorphone HCl (Dilaudid) 4 mg PRN Q4HRS PRN PO PAIN Last administered on 11:16; Start 11/02/16 at 21:45 Cyanocobalamin (Vitamin B-12) 1,000 mcg DAILY PO Last administered on 11/06/16 08:14; Start 11/03/16 at 12:30 Enoxaparin Sodium (Lovenox 30mg Syringe) 30 mg DAILY SQ Last administered on 08:14; Start 11/03/16 at 12:30 Theophylline 130 mg Q8HRS PO Last administered on 11/06/16 13:12; Start at 22:00 Gadobutrol (Gadavist) 4 mmol 1X ONCE IV ; Start 11/04/16 at 13:00; Stop 11/04/16 at 13:03; Status DC Calcium/Vitamin D (Oscal D 500mg/ 200uts) 1 tab BIDWMEALS PO Last administered on 11/06/16 08:10; Start 11/05/16 at 17:00 Potassium Chloride 20 meq 20 meq 1X ONCE PO ; Start 11/06/16 at 14:00; Stop 11/06 at 14:01 Magnesium Sulfate/ Dextrose (Magnesium Sulfate PREMIX 2GM) 50 ml @ 25 mls/hr 1X ONCE IV ; Start 11/06/16 at 14:00; Stop 11/06/16 at 15:59; Status UNV Active Scripts Active Reported Remeron (Mirtazapine) 15 Mg Tablet 1 Tab PO QHS Theophylline (Theophylline Anhydrous) 400 Mg Tablet.er 200 Mg PO TID Potassium Chloride 20 Meq Tablet.er 20 Meq PO BID Nexium Capsule (Esomeprazole Magnesium) 40 Mg Capsule.dr 1 Cap PO DAILY Levothyroxine Sodium 75 Mcg Tablet 1 Tab PO DAILY Hydromorphone Hcl 4 Mg Tablet 1 Tab PO QID Hydrochlorothiazide Tablet (Hydrochlorothiazide) 50 Mg Tablet 25 Mg PO DAILY Gabapentin 100 Mg Capsule 100 Mg PO BID Amlodipine Besylate 5 Mg Tablet 5 Mg PO DAILY Allopurinol 100 Mg Tablet 1 Tab PO BID Vitals/I & O Vital Sign - Last 24 Hours 11/05/16 11/05/16 11/05/16 11/06/16 15:00 19:44 20:01 07:00 Temp 93.6 100.0 98.0 93.6 100.0 98.0 Pulse 91 104 103 Resp 18 18 18 B/P 128/73 145/68 130/72 Pulse Ox 93 94 93 O2 Delivery Room Air Room Air Room Air Room Air 11/06/16 11/06/16 11/06/16 08:00 08:14 11:00 Temp 97.9 97.9 Pulse 93 104 Resp 18 B/P 126/74 129/66 Pulse Ox 93 O2 Delivery Room Air Room Air Intake and Output 11/05/16 11/05/16 11/06/16 15:00 23:00 07:00 Intake Total 240 ml 200 ml Output Total 420 ml 550 ml Balance -180 ml -350 ml DARIO ROWLAND MD Nov 06, 2016 14:03
[2016-11-06] MEDS ORDERED: MAGNESIUM SULFATE 2GM 50 ML IV ONE (14:30)
[2016-11-06 14:46] LABS: CALCIUM 8.5 mg/dL (8.5-10.1); CREATININE 1.3 mg/dL (0.6-1.0); GFR 39.6
[2016-11-06 14:52] LABS: ALBUMIN 2.9 g/dL (3.4-5.0); ALBUMIN/GLOBULIN RATIO 0.8 (1.0-1.7); TOTAL BILIRUBIN 0.3 mg/dL (0.2-1.0); TOTAL PROTEIN 6.7 g/dL (6.4-8.2)
[2016-11-06 15:00] VITALS: BP 111/65
[2016-11-06 19:00] VITALS: BP 115/73
[2016-11-06] MEDS: MIRTAZAPINE 15 MG TABLET PO SCH (21:20)
[2016-11-07] VITALS: BP 129/71
[2016-11-07 03:00] VITALS: BP 140/77
[2016-11-07] MEDS: HYDROMORPHONE 4 MG TABLET. PO PRN ×4 (03:19→20:09)
[2016-11-07] MEDS: POTASSIUM CL 20MEQ-0.45% NACL 1,000 ML IV SCH ×2 (03:22→13:38)
[2016-11-07] MEDS: LEVOTHYROXINE 75 MCG TABLET PO SCH (06:40)
[2016-11-07 07:13] LABS: BASO % 1 % (0-3); EOS % 5 % (0-3); HEMATOCRIT 27.1 % (36.0-47.0); HEMOGLOBIN 8.9 g/dL (12.0-15.5); LYMPH # 0.6 x10^3/uL (1.0-4.8); LYMPH % 11 % (24-48); MEAN CORPUSCULAR HEMOGLOBIN 35 pg (25-35); MEAN CORPUSCULAR HGB CONC 33 g/dL (31-37); MEAN CORPUSCULAR VOLUME 105 fL (79-100); MONO % 9 % (0-9); NEUT % 74 % (31-73); PLATELET COUNT 178 x10^3/uL (140-400); RED BLOOD COUNT 2.58 x10^6/uL (3.50-5.40); RED CELL DISTRIBUTION WIDTH 13.9 % (11.5-14.5); WHITE BLOOD COUNT 5.4 x10^3/uL (4.0-11.0)
[2016-11-07 07:19] LABS: CALCIUM 9.2 mg/dL (8.5-10.1); CREATININE 1.3 mg/dL (0.6-1.0); GFR 39.6; POTASSIUM 3.8 mmol/L (3.5-5.1)
[2016-11-07] MEDS: GABAPENTIN 100 MG CAPSULE. PO SCH ×2 (08:19→20:09)
[2016-11-07] MEDS: PANTOPRAZOLE 40 MG TABLET. PO SCH (08:19)
[2016-11-07] MEDS: CALCIUM CARB/VIT D3 500/200 TABLET PO SCH ×2 (08:19→17:43)
[2016-11-07] MEDS: CYANOCOBALAMIN (VITAMIN B-12) 1,000 MCG TABLET. PO SCH (08:19)
[2016-11-07] MEDS: THEOPHYLLINE 80 MG/15 ML PO SCH ×3 (08:19→20:08)
[2016-11-07] MEDS: ALLOPURINOL 100 MG TABLET. PO SCH (08:20)
[2016-11-07] MEDS: HYDROCHLOROTHIAZIDE 25 MG TABLET PO SCH (08:20)
[2016-11-07] MEDS: ENOXAPARIN 30 MG/0.3 ML DISP.SYRIN. SQ SCH (08:20)
[2016-11-07] MEDS: AMLODIPINE BESYLATE 5 MG TABLET PO SCH (08:20)
[2016-11-07] MEDS: CHOLECALCIFEROL (VITAMIN D3) 5,000 UNIT CAPSULE PO SCH (08:20)
--- NOTE | 2016-11-07 10:19 | PDOC ---
PROGRESS NOTES Chief Complaint Chief Complaint encephalopathy, metabolic right arm weakness ASSESSMENT AND PLAN: 1. AMS: metabolic encephalopathy with severe hypothyroidism, lowish B12: improving. MRI w/o evidence of mets 2. Hypothyroidism: repletion restarted. T4 low normal now 3. NSCLC, stage 3 post chemo and RT: stable by restaging CT this week 4. CAD: no acute issues. cont home meds. echo with nl LVEF 5. Asthma: no respir issues. nebs PRN, theophylline 6. CKD3: stable 7. Macrocytic anemia: 2/2 hypothyroidism; borderline low B12, on PO repletion 8. (Sub) acute 9L rib fx: eval for osteoporosis. vit D level pending. start Ca/VitD 9. Depression: on remeron 10. OA: s/p back surgeries; on chronic narcotics 11. Constipation: narcotics and myxedema. bowel regimen 12. Prophylaxis: lovenox, PPI 13. Dispo: rehab in next couple of days History of Present Illness History of Present Illness no change family concerned that she had better str. 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) Skin: No rashes Labs LABS Laboratory Tests Test 11/06/16 14:05 11/07/16 06:00 Sodium Level 138mmol/L (136-145) 139mmol/L (136-145) Potassium Level 3.0mmol/L (3.5-5.1) 3.8mmol/L (3.5-5.1) Chloride Level 102mmol/L (98-107) 104mmol/L (98-107) Carbon Dioxide Level 25mmol/L (21-32) 26mmol/L (21-32) Anion Gap 11 (6-14) 9 (6-14) Blood Urea Nitrogen 9mg/dL (7-20) 10mg/dL (7-20) Creatinine 1.3mg/dL (0.6-1.0) 1.3mg/dL (0.6-1.0) Estimated GFR (Cockcroft-Gault) 39.6 39.6 BUN/Creatinine Ratio 7 (6-20) Glucose Level 91mg/dL (70-99) 86mg/dL (70-99) Calcium Level 8.5mg/dL (8.5-10.1) 9.2mg/dL (8.5-10.1) Total Bilirubin 0.3mg/dL (0.2-1.0) Aspartate Amino Transf (AST/SGOT) 17U/L (15-37) Alanine Aminotransferase (ALT/SGPT) 13U/L (14-59) Alkaline Phosphatase 71U/L (46-116) Total Protein 6.7g/dL (6.4-8.2) Albumin 2.9g/dL (3.4-5.0) Albumin/Globulin Ratio 0.8 (1.0-1.7) White Blood Count 5.4x10^3/uL (4.0-11.0) Red Blood Count 2.58x10^6/uL (3.50-5.40) Hemoglobin 8.9g/dL (12.0-15.5) Hematocrit 27.1% (36.0-47.0) Mean Corpuscular Volume 105fL (79-100) Mean Corpuscular Hemoglobin 35pg (25-35) Mean Corpuscular Hemoglobin Concent 33g/dL (31-37) Red Cell Distribution Width 13.9% (11.5-14.5) Platelet Count 178x10^3/uL (140-400) Neutrophils (%) (Auto) 74% (31-73) Lymphocytes (%) (Auto) 11% (24-48) Monocytes (%) (Auto) 9% (0-9) Eosinophils (%) (Auto) 5% (0-3) Basophils (%) (Auto) 1% (0-3) Neutrophils # (Auto) 4.0x10^3uL (1.8-7.7) Lymphocytes # (Auto) 0.6x10^3/uL (1.0-4.8) Monocytes # (Auto) 0.5x10^3/uL (0.0-1.1) Eosinophils # (Auto) 0.3x10^3/uL (0.0-0.7) Basophils # (Auto) 0.0x10^3/uL (0.0-0.2) Review of Systems Review of Systems arm weakess lethargy affect very flat Assessment and Plan Assessmemt and Plan right arm hemiparesis, symptoms similar to CVA, MRI did not support this, pending MRI with contrast. PT and OT pt wants home health, I discussed benefit of acute or subacute rehab at length , pt and family declined Problems Medical Problems: (1) Myxedema coma Status: Acute Problems: Comment Review of Relevant I have reviewed the following items shirin (where applicable) has been applied. Labs Laboratory Tests Test 11/06/16 06:15 11/06/16 14:05 11/07/16 06:00 White Blood Count 8.3x10^3/uL (4.0-11.0) 5.4x10^3/uL (4.0-11.0) Red Blood Count 2.81x10^6/uL (3.50-5.40) 2.58x10^6/uL (3.50-5.40) Hemoglobin 9.7g/dL (12.0-15.5) 8.9g/dL (12.0-15.5) Hematocrit 29.2% (36.0-47.0) 27.1% (36.0-47.0) Mean Corpuscular Volume 104fL (79-100) 105fL (79-100) Mean Corpuscular Hemoglobin 34pg (25-35) 35pg (25-35) Mean Corpuscular Hemoglobin Concent 33g/dL (31-37) 33g/dL (31-37) Red Cell Distribution Width 13.7% (11.5-14.5) 13.9% (11.5-14.5) Platelet Count 181x10^3/uL (140-400) 178x10^3/uL (140-400) Neutrophils (%) (Auto) 83% (31-73) 74% (31-73) Lymphocytes (%) (Auto) 7% (24-48) 11% (24-48) Monocytes (%) (Auto) 7% (0-9) 9% (0-9) Eosinophils (%) (Auto) 2% (0-3) 5% (0-3) Basophils (%) (Auto) 0% (0-3) 1% (0-3) Neutrophils # (Auto) 6.9x10^3uL (1.8-7.7) 4.0x10^3uL (1.8-7.7) Lymphocytes # (Auto) 0.6x10^3/uL (1.0-4.8) 0.6x10^3/uL (1.0-4.8) Monocytes # (Auto) 0.6x10^3/uL (0.0-1.1) 0.5x10^3/uL (0.0-1.1) Eosinophils # (Auto) 0.2x10^3/uL (0.0-0.7) 0.3x10^3/uL (0.0-0.7) Basophils # (Auto) 0.0x10^3/uL (0.0-0.2) 0.0x10^3/uL (0.0-0.2) Sodium Level 139mmol/L (136-145) 138mmol/L (136-145) 139mmol/L (136-145) Potassium Level 3.3mmol/L (3.5-5.1) 3.0mmol/L (3.5-5.1) 3.8mmol/L (3.5-5.1) Chloride Level 102mmol/L (98-107) 102mmol/L (98-107) 104mmol/L (98-107) Carbon Dioxide Level 25mmol/L (21-32) 25mmol/L (21-32) 26mmol/L (21-32) Anion Gap 12 (6-14) 11 (6-14) 9 (6-14) Blood Urea Nitrogen 9mg/dL (7-20) 9mg/dL (7-20) 10mg/dL (7-20) Creatinine 1.3mg/dL (0.6-1.0) 1.3mg/dL (0.6-1.0) 1.3mg/dL (0.6-1.0) Estimated GFR (Cockcroft-Gault) 39.6 39.6 39.6 Glucose Level 95mg/dL (70-99) 91mg/dL (70-99) 86mg/dL (70-99) Calcium Level 8.5mg/dL (8.5-10.1) 8.5mg/dL (8.5-10.1) 9.2mg/dL (8.5-10.1) BUN/Creatinine Ratio 7 (6-20) Total Bilirubin 0.3mg/dL (0.2-1.0) Aspartate Amino Transf (AST/SGOT) 17U/L (15-37) Alanine Aminotransferase (ALT/SGPT) 13U/L (14-59) Alkaline Phosphatase 71U/L (46-116) Total Protein 6.7g/dL (6.4-8.2) Albumin 2.9g/dL (3.4-5.0) Albumin/Globulin Ratio 0.8 (1.0-1.7) Laboratory Tests Test 11/06/16 14:05 11/07/16 06:00 Sodium Level 138mmol/L (136-145) 139mmol/L (136-145) Potassium Level 3.0mmol/L (3.5-5.1) 3.8mmol/L (3.5-5.1) Chloride Level 102mmol/L (98-107) 104mmol/L (98-107) Carbon Dioxide Level 25mmol/L (21-32) 26mmol/L (21-32) Anion Gap 11 (6-14) 9 (6-14) Blood Urea Nitrogen 9mg/dL (7-20) 10mg/dL (7-20) Creatinine 1.3mg/dL (0.6-1.0) 1.3mg/dL (0.6-1.0) Estimated GFR (Cockcroft-Gault) 39.6 39.6 BUN/Creatinine Ratio 7 (6-20) Glucose Level 91mg/dL (70-99) 86mg/dL (70-99) Calcium Level 8.5mg/dL (8.5-10.1) 9.2mg/dL (8.5-10.1) Total Bilirubin 0.3mg/dL (0.2-1.0) Aspartate Amino Transf (AST/SGOT) 17U/L (15-37) Alanine Aminotransferase (ALT/SGPT) 13U/L (14-59) Alkaline Phosphatase 71U/L (46-116) Total Protein 6.7g/dL (6.4-8.2) Albumin 2.9g/dL (3.4-5.0) Albumin/Globulin Ratio 0.8 (1.0-1.7) White Blood Count 5.4x10^3/uL (4.0-11.0) Red Blood Count 2.58x10^6/uL (3.50-5.40) Hemoglobin 8.9g/dL (12.0-15.5) Hematocrit 27.1% (36.0-47.0) Mean Corpuscular Volume 105fL (79-100) Mean Corpuscular Hemoglobin 35pg (25-35) Mean Corpuscular Hemoglobin Concent 33g/dL (31-37) Red Cell Distribution Width 13.9% (11.5-14.5) Platelet Count 178x10^3/uL (140-400) Neutrophils (%) (Auto) 74% (31-73) Lymphocytes (%) (Auto) 11% (24-48) Monocytes (%) (Auto) 9% (0-9) Eosinophils (%) (Auto) 5% (0-3) Basophils (%) (Auto) 1% (0-3) Neutrophils # (Auto) 4.0x10^3uL (1.8-7.7) Lymphocytes # (Auto) 0.6x10^3/uL (1.0-4.8) Monocytes # (Auto) 0.5x10^3/uL (0.0-1.1) Eosinophils # (Auto) 0.3x10^3/uL (0.0-0.7) Basophils # (Auto) 0.0x10^3/uL (0.0-0.2) Medications Current Medications Sodium Chloride 3 ml 3 ml PRN DAILY PRN IV AFTER MEDS AND BLOOD DRAWS; Start at 18:45 Potassium Chloride/Sodium Chloride (KCl 20 Meq-0.45% Nacl) 1,000 ml @ 100 mls/ hr Q10H IV Last administered on 11/07/16t 03:22; Start 11/02/16 at 19:15 Acetaminophen (Tylenol) 650 mg PRN Q6HRS PRN PO MILD PAIN / TEMP Last administered on 11/04/16 19:54; Start 11/02/16 at 18:45 Allopurinol (Zyloprim) 100 mg DAILY PO Last administered on 11/07/16 08:20; Start 11/03/16 at 09:00 Amlodipine Besylate (Norvasc) 5 mg DAILY PO Last administered on 11/07/16 08: 20; Start 11/03/16 at 09:00 Gabapentin (Neurontin) 100 mg BID PO Last administered on 11/07/16 08:19; Start 11/02/16 at 21:00 Levothyroxine Sodium (Synthroid) 75 mcg DAILY07 PO Last administered on 06:40; Start 11/03/16 at 07:00 Mirtazapine (Remeron) 15 mg QHS PO Last administered on 11/06/16 21:20; Start 11/02/16 at 21:00 Pantoprazole Sodium (Protonix) 40 mg DAILYAC PO Last administered on 11/07/16 08:19; Start 11/03/16 at 07:30 Hydrochlorothiazide (Hydrodiuril) 25 mg DAILY PO Last administered on 08:20; Start 11/03/16 at 09:00 Theophylline (Theodur) 200 mg BID PO Last administered on 11/03/16 10:09; Start 11/02/16 at 21:00; Stop 11/03/16 at 14:02; Status DC Acetaminophen/ Hydrocodone Bitart (Lortab 5/325) 1 tab PRN Q6HRS PRN PO PAIN; Start 11/02/16 at 20:45; Status Cancel Hydromorphone HCl (Dilaudid) 4 mg PRN Q4HRS PRN PO PAIN Last administered on 09:49; Start 11/02/16 at 21:45 Cyanocobalamin (Vitamin B-12) 1,000 mcg DAILY PO Last administered on 08:19; Start 11/03/16 at 12:30 Enoxaparin Sodium (Lovenox 30mg Syringe) 30 mg DAILY SQ Last administered on 08:20; Start 11/03/16 at 12:30 Theophylline 130 mg Q8HRS PO Last administered on 11/07/16 08:19; Start at 22:00 Gadobutrol (Gadavist) 4 mmol 1X ONCE IV ; Start 11/04/16 at 13:00; Stop 11/04/16 at 13:03; Status DC Calcium/Vitamin D (Oscal D 500mg/ 200uts) 1 tab BIDWMEALS PO Last administered on 11/07/16 08:19; Start 11/05/16 at 17:00 Potassium Chloride 20 meq 20 meq 1X ONCE PO Last administered on 11/06/16 14: 00; Start 11/06/16 at 14:00; Stop 11/06/16 at 14:01; Status DC Magnesium Sulfate/ Dextrose (Magnesium Sulfate PREMIX 2GM) 50 ml @ 25 mls/hr 1X ONCE IV Last administered on 11/06/16 14:42; Start 11/06/16 at 14:30; Stop 11/06/16 at 16:29; Status DC Vitamin D (Vitamin D3) 5,000 unit DAILY PO Last administered on 11/07/16 08:20 ; Start 11/07/16 at 09:00 Active Scripts Active Reported Remeron (Mirtazapine) 15 Mg Tablet 1 Tab PO QHS Theophylline (Theophylline Anhydrous) 400 Mg Tablet.er 200 Mg PO TID Potassium Chloride 20 Meq Tablet.er 20 Meq PO BID Nexium Capsule (Esomeprazole Magnesium) 40 Mg Capsule.dr 1 Cap PO DAILY Levothyroxine Sodium 75 Mcg Tablet 1 Tab PO DAILY Hydromorphone Hcl 4 Mg Tablet 1 Tab PO QID Hydrochlorothiazide Tablet (Hydrochlorothiazide) 50 Mg Tablet 25 Mg PO DAILY Gabapentin 100 Mg Capsule 100 Mg PO BID Amlodipine Besylate 5 Mg Tablet 5 Mg PO DAILY Allopurinol 100 Mg Tablet 1 Tab PO BID Vitals/I & O Vital Sign - Last 24 Hours 11/06/16 11/06/16 11/06/16 11/06/16 11:00 15:00 19:00 20:00 Temp 97.9 98.0 99.5 97.9 98.0 99.5 Pulse 104 112 104 Resp 17 B/P 129/66 111/65 115/73 Pulse Ox 93 93 92 O2 Delivery Room Air Room Air Room Air Room Air 11/07/16 11/07/16 11/07/16 11/07/16 00:00 03:00 08:00 08:20 Temp 98.4 98.6 98.4 98.6 Pulse 98 106 106 Resp 18 18 B/P 129/71 140/77 140/77 Pulse Ox 92 92 O2 Delivery Room Air Room Air Room Air Intake and Output 11/06/16 11/06/16 11/07/16 15:00 23:00 07:00 Intake Total 1162 ml 75 ml Output Total 0 ml 2 ml Balance 1162 ml 73 ml DARIO ROWLAND MD Nov 07, 2016 10:19
[2016-11-07 10:46] VITALS: BP 123/61
--- NOTE | 2016-11-07 11:17 | PDOC ---
PROGRESS NOTES Assessment Problems Medical Problems: (1) Myxedema coma Status: Acute Metabolic encephalopathy. Myxedema, TSH 172.5 Non small cell lung cancer stage III History of seizure in 1970 Plan Treat hypothyroidism. Creatinine is still 1.3, I don't think she needs the contrast portion of the brain MRI. Discussed with family Objective Vital Signs Date Time Temp Pulse Resp B/P Pulse Ox O2 Delivery O2 Flow Rate FiO2 11/07/16 10:46 97.9 106 18 123/61 94 Room Air 97.9 Intake and Output 11/07/16 07:00 Intake Total 1237 ml Output Total 2 ml Balance 1235 ml Intake Oral 325 ml IV Total 912 ml Output Urine Total 2 ml PHYSICAL EXAM Alert. Oriented to place and person, knows month and year. PERRL. EOMI. CN: no focal findings. Muscle tone: normal. Muscle strength: 4 -/5 DTR: 1+ Plantar reflex: flexor Gait: not examined in bed. Sensory exam: no abnormal findings. No cerebellar signs elicited. Review of Relevant I have reviewed the following items shirin (where applicable) has been applied. Labs Laboratory Tests Test 11/06/16 06:15 11/06/16 14:05 11/07/16 06:00 White Blood Count 8.3x10^3/uL (4.0-11.0) 5.4x10^3/uL (4.0-11.0) Red Blood Count 2.81x10^6/uL (3.50-5.40) 2.58x10^6/uL (3.50-5.40) Hemoglobin 9.7g/dL (12.0-15.5) 8.9g/dL (12.0-15.5) Hematocrit 29.2% (36.0-47.0) 27.1% (36.0-47.0) Mean Corpuscular Volume 104fL (79-100) 105fL (79-100) Mean Corpuscular Hemoglobin 34pg (25-35) 35pg (25-35) Mean Corpuscular Hemoglobin Concent 33g/dL (31-37) 33g/dL (31-37) Red Cell Distribution Width 13.7% (11.5-14.5) 13.9% (11.5-14.5) Platelet Count 181x10^3/uL (140-400) 178x10^3/uL (140-400) Neutrophils (%) (Auto) 83% (31-73) 74% (31-73) Lymphocytes (%) (Auto) 7% (24-48) 11% (24-48) Monocytes (%) (Auto) 7% (0-9) 9% (0-9) Eosinophils (%) (Auto) 2% (0-3) 5% (0-3) Basophils (%) (Auto) 0% (0-3) 1% (0-3) Neutrophils # (Auto) 6.9x10^3uL (1.8-7.7) 4.0x10^3uL (1.8-7.7) Lymphocytes # (Auto) 0.6x10^3/uL (1.0-4.8) 0.6x10^3/uL (1.0-4.8) Monocytes # (Auto) 0.6x10^3/uL (0.0-1.1) 0.5x10^3/uL (0.0-1.1) Eosinophils # (Auto) 0.2x10^3/uL (0.0-0.7) 0.3x10^3/uL (0.0-0.7) Basophils # (Auto) 0.0x10^3/uL (0.0-0.2) 0.0x10^3/uL (0.0-0.2) Sodium Level 139mmol/L (136-145) 138mmol/L (136-145) 139mmol/L (136-145) Potassium Level 3.3mmol/L (3.5-5.1) 3.0mmol/L (3.5-5.1) 3.8mmol/L (3.5-5.1) Chloride Level 102mmol/L (98-107) 102mmol/L (98-107) 104mmol/L (98-107) Carbon Dioxide Level 25mmol/L (21-32) 25mmol/L (21-32) 26mmol/L (21-32) Anion Gap 12 (6-14) 11 (6-14) 9 (6-14) Blood Urea Nitrogen 9mg/dL (7-20) 9mg/dL (7-20) 10mg/dL (7-20) Creatinine 1.3mg/dL (0.6-1.0) 1.3mg/dL (0.6-1.0) 1.3mg/dL (0.6-1.0) Estimated GFR (Cockcroft-Gault) 39.6 39.6 39.6 Glucose Level 95mg/dL (70-99) 91mg/dL (70-99) 86mg/dL (70-99) Calcium Level 8.5mg/dL (8.5-10.1) 8.5mg/dL (8.5-10.1) 9.2mg/dL (8.5-10.1) BUN/Creatinine Ratio 7 (6-20) Total Bilirubin 0.3mg/dL (0.2-1.0) Aspartate Amino Transf (AST/SGOT) 17U/L (15-37) Alanine Aminotransferase (ALT/SGPT) 13U/L (14-59) Alkaline Phosphatase 71U/L (46-116) Total Protein 6.7g/dL (6.4-8.2) Albumin 2.9g/dL (3.4-5.0) Albumin/Globulin Ratio 0.8 (1.0-1.7) Laboratory Tests Test 11/06/16 14:05 11/07/16 06:00 Sodium Level 138mmol/L (136-145) 139mmol/L (136-145) Potassium Level 3.0mmol/L (3.5-5.1) 3.8mmol/L (3.5-5.1) Chloride Level 102mmol/L (98-107) 104mmol/L (98-107) Carbon Dioxide Level 25mmol/L (21-32) 26mmol/L (21-32) Anion Gap 11 (6-14) 9 (6-14) Blood Urea Nitrogen 9mg/dL (7-20) 10mg/dL (7-20) Creatinine 1.3mg/dL (0.6-1.0) 1.3mg/dL (0.6-1.0) Estimated GFR (Cockcroft-Gault) 39.6 39.6 BUN/Creatinine Ratio 7 (6-20) Glucose Level 91mg/dL (70-99) 86mg/dL (70-99) Calcium Level 8.5mg/dL (8.5-10.1) 9.2mg/dL (8.5-10.1) Total Bilirubin 0.3mg/dL (0.2-1.0) Aspartate Amino Transf (AST/SGOT) 17U/L (15-37) Alanine Aminotransferase (ALT/SGPT) 13U/L (14-59) Alkaline Phosphatase 71U/L (46-116) Total Protein 6.7g/dL (6.4-8.2) Albumin 2.9g/dL (3.4-5.0) Albumin/Globulin Ratio 0.8 (1.0-1.7) White Blood Count 5.4x10^3/uL (4.0-11.0) Red Blood Count 2.58x10^6/uL (3.50-5.40) Hemoglobin 8.9g/dL (12.0-15.5) Hematocrit 27.1% (36.0-47.0) Mean Corpuscular Volume 105fL (79-100) Mean Corpuscular Hemoglobin 35pg (25-35) Mean Corpuscular Hemoglobin Concent 33g/dL (31-37) Red Cell Distribution Width 13.9% (11.5-14.5) Platelet Count 178x10^3/uL (140-400) Neutrophils (%) (Auto) 74% (31-73) Lymphocytes (%) (Auto) 11% (24-48) Monocytes (%) (Auto) 9% (0-9) Eosinophils (%) (Auto) 5% (0-3) Basophils (%) (Auto) 1% (0-3) Neutrophils # (Auto) 4.0x10^3uL (1.8-7.7) Lymphocytes # (Auto) 0.6x10^3/uL (1.0-4.8) Monocytes # (Auto) 0.5x10^3/uL (0.0-1.1) Eosinophils # (Auto) 0.3x10^3/uL (0.0-0.7) Basophils # (Auto) 0.0x10^3/uL (0.0-0.2) Medications Current Medications Sodium Chloride 3 ml 3 ml PRN DAILY PRN IV AFTER MEDS AND BLOOD DRAWS; Start at 18:45 Potassium Chloride/Sodium Chloride (KCl 20 Meq-0.45% Nacl) 1,000 ml @ 100 mls/ hr Q10H IV Last administered on 11/07/16 03:22; Start 11/02/16 at 19:15 Acetaminophen (Tylenol) 650 mg PRN Q6HRS PRN PO MILD PAIN / TEMP Last administered on 11/04/16 19:54; Start 11/02/16 at 18:45 Allopurinol (Zyloprim) 100 mg DAILY PO Last administered on 11/07/16 08:20; Start 11/03/16 at 09:00 Amlodipine Besylate (Norvasc) 5 mg DAILY PO Last administered on 11/07/16 08: 20; Start 11/03/16 at 09:00 Gabapentin (Neurontin) 100 mg BID PO Last administered on 11/07/16 08:19; Start 11/02/16 at 21:00 Levothyroxine Sodium (Synthroid) 75 mcg DAILY07 PO Last administered on 06:40; Start 11/03/16 at 07:00 Mirtazapine (Remeron) 15 mg QHS PO Last administered on 11/06/16 21:20; Start 11/02/16 at 21:00 Pantoprazole Sodium (Protonix) 40 mg DAILYAC PO Last administered on 11/07/16 08:19; Start 11/03/16 at 07:30 Hydrochlorothiazide (Hydrodiuril) 25 mg DAILY PO Last administered on 08:20; Start 11/03/16 at 09:00 Theophylline (Theodur) 200 mg BID PO Last administered on 11/03/16 10:09; Start 11/02/16 at 21:00; Stop 11/03/16 at 14:02; Status DC Acetaminophen/ Hydrocodone Bitart (Lortab 5/325) 1 tab PRN Q6HRS PRN PO PAIN; Start 11/02/16 at 20:45; Status Cancel Hydromorphone HCl (Dilaudid) 4 mg PRN Q4HRS PRN PO PAIN Last administered on 09:49; Start 11/02/16 at 21:45 Cyanocobalamin (Vitamin B-12) 1,000 mcg DAILY PO Last administered on 08:19; Start 11/03/16 at 12:30 Enoxaparin Sodium (Lovenox 30mg Syringe) 30 mg DAILY SQ Last administered on 08:20; Start 11/03/16 at 12:30 Theophylline 130 mg Q8HRS PO Last administered on 11/07/16 08:19; Start at 22:00 Gadobutrol (Gadavist) 4 mmol 1X ONCE IV ; Start 11/04/16 at 13:00; Stop 11/04/16 at 13:03; Status DC Calcium/Vitamin D (Oscal D 500mg/ 200uts) 1 tab BIDWMEALS PO Last administered on 11/07/16 08:19; Start 11/05/16 at 17:00 Potassium Chloride 20 meq 20 meq 1X ONCE PO Last administered on 11/06/16 14: 00; Start 11/06/16 at 14:00; Stop 11/06/16 at 14:01; Status DC Magnesium Sulfate/ Dextrose (Magnesium Sulfate PREMIX 2GM) 50 ml @ 25 mls/hr 1X ONCE IV Last administered on 11/06/16 14:42; Start 11/06/16 at 14:30; Stop 11/06/16 at 16:29; Status DC Vitamin D (Vitamin D3) 5,000 unit DAILY PO Last administered on 11/07/16 08:20 ; Start 11/07/16 at 09:00 Active Scripts Active Reported Remeron (Mirtazapine) 15 Mg Tablet 1 Tab PO QHS Theophylline (Theophylline Anhydrous) 400 Mg Tablet.er 200 Mg PO TID Potassium Chloride 20 Meq Tablet.er 20 Meq PO BID Nexium Capsule (Esomeprazole Magnesium) 40 Mg Capsule.dr 1 Cap PO DAILY Levothyroxine Sodium 75 Mcg Tablet 1 Tab PO DAILY Hydromorphone Hcl 4 Mg Tablet 1 Tab PO QID Hydrochlorothiazide Tablet (Hydrochlorothiazide) 50 Mg Tablet 25 Mg PO DAILY Gabapentin 100 Mg Capsule 100 Mg PO BID Amlodipine Besylate 5 Mg Tablet 5 Mg PO DAILY Allopurinol 100 Mg Tablet 1 Tab PO BID Vitals/I & O Vital Sign - Last 24 Hours 11/06/16 11/06/16 11/06/16 11/07/16 15:00 19:00 20:00 00:00 Temp 98.0 99.5 98.4 98.0 99.5 98.4 Pulse 112 104 98 Resp 18 B/P 111/65 115/73 129/71 Pulse Ox 93 92 92 O2 Delivery Room Air Room Air Room Air Room Air 11/07/16 11/07/16 11/07/16 11/07/16 03:00 08:00 08:20 10:46 Temp 98.6 97.9 98.6 97.9 Pulse 106 106 106 Resp 18 B/P 140/77 140/77 123/61 Pulse Ox 92 94 O2 Delivery Room Air Room Air Room Air Intake and Output 11/06/16 11/06/16 11/07/16 15:00 23:00 07:00 Intake Total 1162 ml 75 ml Output Total 0 ml 2 ml Balance 1162 ml 73 ml PEDRITO ZAIDI MD Nov 07, 2016 11:17
--- NOTE | 2016-11-07 11:39 | PDOC2 ---
CONSULT Date of Consult Date of Consult DATE: 11/07/16 TIME: 11:35 Reason for Consult Reason for Consult: RENAL FAILURE AND LOW K Referring Physician Referring Physician: CALI Identification/Chief Complaint Chief Complaint CONFUSION Source Source: Chart review History of Present Illness Reason for Visit: THIS IS A 76 YR OLD ADMITTED WITH CONFUSION. LABS SHOWED TSH OF NEARLY 90. HER K WAS 3.0 AND CR OF ABOUT 1.4. SHE CANNOT GIVE ANY HX AND HER FAMILY IS ALSO NOT GOOD AT ANY OF HER MEDICAL HX. OLD RECORDS SHOWED CR IN THE SIMILAR RANGE Past Medical History Cardiovascular: CAD Pulmonary: COPD Heme/Onc: Cancer (Non Small Cell Lung Cancer s/p concurrent Chemo/radiation completed in June) Psych: Depression Renal/: Chronic renal insuff Endocrine: Hyperthyroidism Social History No ALCOHOL: none Lives: with Family Current Problem List Problem List Problems Medical Problems: (1) Myxedema coma Status: Acute Current Medications Current Medications Current Medications Sodium Chloride 3 ml 3 ml PRN DAILY PRN IV AFTER MEDS AND BLOOD DRAWS; Start at 18:45 Potassium Chloride/Sodium Chloride (KCl 20 Meq-0.45% Nacl) 1,000 ml @ 100 mls/ hr Q10H IV Last administered on 11/07/16 03:22; Start 11/02/16 at 19:15 Acetaminophen (Tylenol) 650 mg PRN Q6HRS PRN PO MILD PAIN / TEMP Last administered on 11/04/16 19:54; Start 11/02/16 at 18:45 Allopurinol (Zyloprim) 100 mg DAILY PO Last administered on 11/07/16 08:20; Start 11/03/16 at 09:00 Amlodipine Besylate (Norvasc) 5 mg DAILY PO Last administered on 11/07/16 08: 20; Start 11/03/16 at 09:00 Gabapentin (Neurontin) 100 mg BID PO Last administered on 11/07/16 08:19; Start 11/02/16 at 21:00 Levothyroxine Sodium (Synthroid) 75 mcg DAILY07 PO Last administered on 06:40; Start 11/03/16 at 07:00 Mirtazapine (Remeron) 15 mg QHS PO Last administered on 11/06/16 21:20; Start 11/02/16 at 21:00 Pantoprazole Sodium (Protonix) 40 mg DAILYAC PO Last administered on 11/07/16 08:19; Start 11/03/16 at 07:30 Hydrochlorothiazide (Hydrodiuril) 25 mg DAILY PO Last administered on 08:20; Start 11/03/16 at 09:00 Theophylline (Theodur) 200 mg BID PO Last administered on 11/03/16 10:09; Start 11/02/16 at 21:00; Stop 11/03/16 at 14:02; Status DC Acetaminophen/ Hydrocodone Bitart (Lortab 5/325) 1 tab PRN Q6HRS PRN PO PAIN; Start 11/02/16 at 20:45; Status Cancel Hydromorphone HCl (Dilaudid) 4 mg PRN Q4HRS PRN PO PAIN Last administered on 09:49; Start 11/02/16 at 21:45 Cyanocobalamin (Vitamin B-12) 1,000 mcg DAILY PO Last administered on 08:19; Start 11/03/16 at 12:30 Enoxaparin Sodium (Lovenox 30mg Syringe) 30 mg DAILY SQ Last administered on 08:20; Start 11/03/16 at 12:30 Theophylline 130 mg Q8HRS PO Last administered on 11/07/16 08:19; Start at 22:00 Gadobutrol (Gadavist) 4 mmol 1X ONCE IV ; Start 11/04/16 at 13:00; Stop 11/04/16 at 13:03; Status DC Calcium/Vitamin D (Oscal D 500mg/ 200uts) 1 tab BIDWMEALS PO Last administered on 11/07/16 08:19; Start 11/05/16 at 17:00 Potassium Chloride 20 meq 20 meq 1X ONCE PO Last administered on 11/06/16 14: 00; Start 11/06/16 at 14:00; Stop 11/06/16 at 14:01; Status DC Magnesium Sulfate/ Dextrose (Magnesium Sulfate PREMIX 2GM) 50 ml @ 25 mls/hr 1X ONCE IV Last administered on 11/06/16 14:42; Start 11/06/16 at 14:30; Stop 11/06/16 at 16:29; Status DC Vitamin D (Vitamin D3) 5,000 unit DAILY PO Last administered on 11/07/16t 08:20 ; Start 11/07/16 at 09:00 Active Scripts Active Reported Remeron (Mirtazapine) 15 Mg Tablet 1 Tab PO QHS Theophylline (Theophylline Anhydrous) 400 Mg Tablet.er 200 Mg PO TID Potassium Chloride 20 Meq Tablet.er 20 Meq PO BID Nexium Capsule (Esomeprazole Magnesium) 40 Mg Capsule.dr 1 Cap PO DAILY Levothyroxine Sodium 75 Mcg Tablet 1 Tab PO DAILY Hydromorphone Hcl 4 Mg Tablet 1 Tab PO QID Hydrochlorothiazide Tablet (Hydrochlorothiazide) 50 Mg Tablet 25 Mg PO DAILY Gabapentin 100 Mg Capsule 100 Mg PO BID Amlodipine Besylate 5 Mg Tablet 5 Mg PO DAILY Allopurinol 100 Mg Tablet 1 Tab PO BID Allergies Allergies: Coded Allergies: aspirin (Verified Allergy, Intermediate, 05/08/16) codeine (Verified Allergy, Intermediate, 05/08/16) methocarbamol (Verified Allergy, Intermediate, 05/08/16) morphine (Verified Allergy, Intermediate, 05/08/16) Morphine Sulfate ER 15 mg oxycodone (Verified Allergy, Intermediate, 05/08/16) sulfamethoxazole (Verified Allergy, Intermediate, 05/08/16) tramadol (Verified Allergy, Intermediate, 05/08/16) trimethoprim (Verified Allergy, Intermediate, 05/08/16) ROS Review of System UNABLE TO OBTAIN Physical Exam General: Cooperative HEENT: Atraumatic, PERRLA Lungs: Clear to auscultation Heart: Regular rate, Normal S1, Normal S2 Abdomen: Normal bowel sounds, No tenderness Extremities: No clubbing Neuro: Other (CONFUSED WITH NO ASYMMETRY) Psych/Mental Status: Other (FLAT AFFECT) MUSCULOSKELETAL: No deformity Vitals VITALS Vital Signs Date Time Temp Pulse Resp B/P Pulse Ox O2 Delivery O2 Flow Rate FiO2 11/07/16 10:46 97.9 106 18 123/61 94 Room Air 97.9 Labs Labs Laboratory Tests Test 11/06/16 06:15 11/06/16 14:05 11/07/16 06:00 White Blood Count 8.3x10^3/uL (4.0-11.0) 5.4x10^3/uL (4.0-11.0) Red Blood Count 2.81x10^6/uL (3.50-5.40) 2.58x10^6/uL (3.50-5.40) Hemoglobin 9.7g/dL (12.0-15.5) 8.9g/dL (12.0-15.5) Hematocrit 29.2% (36.0-47.0) 27.1% (36.0-47.0) Mean Corpuscular Volume 104fL (79-100) 105fL (79-100) Mean Corpuscular Hemoglobin 34pg (25-35) 35pg (25-35) Mean Corpuscular Hemoglobin Concent 33g/dL (31-37) 33g/dL (31-37) Red Cell Distribution Width 13.7% (11.5-14.5) 13.9% (11.5-14.5) Platelet Count 181x10^3/uL (140-400) 178x10^3/uL (140-400) Neutrophils (%) (Auto) 83% (31-73) 74% (31-73) Lymphocytes (%) (Auto) 7% (24-48) 11% (24-48) Monocytes (%) (Auto) 7% (0-9) 9% (0-9) Eosinophils (%) (Auto) 2% (0-3) 5% (0-3) Basophils (%) (Auto) 0% (0-3) 1% (0-3) Neutrophils # (Auto) 6.9x10^3uL (1.8-7.7) 4.0x10^3uL (1.8-7.7) Lymphocytes # (Auto) 0.6x10^3/uL (1.0-4.8) 0.6x10^3/uL (1.0-4.8) Monocytes # (Auto) 0.6x10^3/uL (0.0-1.1) 0.5x10^3/uL (0.0-1.1) Eosinophils # (Auto) 0.2x10^3/uL (0.0-0.7) 0.3x10^3/uL (0.0-0.7) Basophils # (Auto) 0.0x10^3/uL (0.0-0.2) 0.0x10^3/uL (0.0-0.2) Sodium Level 139mmol/L (136-145) 138mmol/L (136-145) 139mmol/L (136-145) Potassium Level 3.3mmol/L (3.5-5.1) 3.0mmol/L (3.5-5.1) 3.8mmol/L (3.5-5.1) Chloride Level 102mmol/L (98-107) 102mmol/L (98-107) 104mmol/L (98-107) Carbon Dioxide Level 25mmol/L (21-32) 25mmol/L (21-32) 26mmol/L (21-32) Anion Gap 12 (6-14) 11 (6-14) 9 (6-14) Blood Urea Nitrogen 9mg/dL (7-20) 9mg/dL (7-20) 10mg/dL (7-20) Creatinine 1.3mg/dL (0.6-1.0) 1.3mg/dL (0.6-1.0) 1.3mg/dL (0.6-1.0) Estimated GFR (Cockcroft-Gault) 39.6 39.6 39.6 Glucose Level 95mg/dL (70-99) 91mg/dL (70-99) 86mg/dL (70-99) Calcium Level 8.5mg/dL (8.5-10.1) 8.5mg/dL (8.5-10.1) 9.2mg/dL (8.5-10.1) BUN/Creatinine Ratio 7 (6-20) Total Bilirubin 0.3mg/dL (0.2-1.0) Aspartate Amino Transf (AST/SGOT) 17U/L (15-37) Alanine Aminotransferase (ALT/SGPT) 13U/L (14-59) Alkaline Phosphatase 71U/L (46-116) Total Protein 6.7g/dL (6.4-8.2) Albumin 2.9g/dL (3.4-5.0) Albumin/Globulin Ratio 0.8 (1.0-1.7) Laboratory Tests Test 11/06/16 14:05 11/07/16 06:00 Sodium Level 138mmol/L (136-145) 139mmol/L (136-145) Potassium Level 3.0mmol/L (3.5-5.1) 3.8mmol/L (3.5-5.1) Chloride Level 102mmol/L (98-107) 104mmol/L (98-107) Carbon Dioxide Level 25mmol/L (21-32) 26mmol/L (21-32) Anion Gap 11 (6-14) 9 (6-14) Blood Urea Nitrogen 9mg/dL (7-20) 10mg/dL (7-20) Creatinine 1.3mg/dL (0.6-1.0) 1.3mg/dL (0.6-1.0) Estimated GFR (Cockcroft-Gault) 39.6 39.6 BUN/Creatinine Ratio 7 (6-20) Glucose Level 91mg/dL (70-99) 86mg/dL (70-99) Calcium Level 8.5mg/dL (8.5-10.1) 9.2mg/dL (8.5-10.1) Total Bilirubin 0.3mg/dL (0.2-1.0) Aspartate Amino Transf (AST/SGOT) 17U/L (15-37) Alanine Aminotransferase (ALT/SGPT) 13U/L (14-59) Alkaline Phosphatase 71U/L (46-116) Total Protein 6.7g/dL (6.4-8.2) Albumin 2.9g/dL (3.4-5.0) Albumin/Globulin Ratio 0.8 (1.0-1.7) White Blood Count 5.4x10^3/uL (4.0-11.0) Red Blood Count 2.58x10^6/uL (3.50-5.40) Hemoglobin 8.9g/dL (12.0-15.5) Hematocrit 27.1% (36.0-47.0) Mean Corpuscular Volume 105fL (79-100) Mean Corpuscular Hemoglobin 35pg (25-35) Mean Corpuscular Hemoglobin Concent 33g/dL (31-37) Red Cell Distribution Width 13.9% (11.5-14.5) Platelet Count 178x10^3/uL (140-400) Neutrophils (%) (Auto) 74% (31-73) Lymphocytes (%) (Auto) 11% (24-48) Monocytes (%) (Auto) 9% (0-9) Eosinophils (%) (Auto) 5% (0-3) Basophils (%) (Auto) 1% (0-3) Neutrophils # (Auto) 4.0x10^3uL (1.8-7.7) Lymphocytes # (Auto) 0.6x10^3/uL (1.0-4.8) Monocytes # (Auto) 0.5x10^3/uL (0.0-1.1) Eosinophils # (Auto) 0.3x10^3/uL (0.0-0.7) Basophils # (Auto) 0.0x10^3/uL (0.0-0.2) Assessment/Plan Assessment/Plan IMP HYPOKALEMIA MET ENCEPHALOPATHY HYPOTHYROIDISM-SEVERE ANEMIA CKD STAGE 3 WITH CR OF 1.3-1.4 AT BASELINE HX OF NSCLC-S/P CHEMO AND RAD PLAN CONT WITH IVF'S OK WITH MRI CORRECT K NEEDED UPDATED FAMILY LOU CHEN MD Nov 07, 2016 11:39
--- NOTE | 2016-11-07 12:45 | PDOC ---
PROGRESS NOTES Subjective Subjective Patient is feeling better today. She denies any chest pain, shortness of breath or lightheadedness. Family states her confusion continues to wax and wane. Objective Objective Vital Signs Date Time Temp Pulse Resp B/P Pulse Ox O2 Delivery O2 Flow Rate FiO2 11/07/16 10:46 97.9 106 18 123/61 94 Room Air 97.9 Intake and Output 11/07/16 07:00 Intake Total 1237 ml Output Total 2 ml Balance 1235 ml Intake Oral 325 ml IV Total 912 ml Output Urine Total 2 ml Physical Exam Physical Exam No changes in Cardiac exam Assessment Assessment Problems Medical Problems: (1) Myxedema coma Status: Acute Plan Plan of Care Patient compensating cardiac simons. I agree with present plan. Patient cleared from a cardiac standpoint to return home with home health. Comment Review of Relevant I have reviewed the following items shirin (where applicable) has been applied. Labs Laboratory Tests Test 11/06/16 06:15 11/06/16 14:05 11/07/16 06:00 White Blood Count 8.3x10^3/uL (4.0-11.0) 5.4x10^3/uL (4.0-11.0) Red Blood Count 2.81x10^6/uL (3.50-5.40) 2.58x10^6/uL (3.50-5.40) Hemoglobin 9.7g/dL (12.0-15.5) 8.9g/dL (12.0-15.5) Hematocrit 29.2% (36.0-47.0) 27.1% (36.0-47.0) Mean Corpuscular Volume 104fL (79-100) 105fL (79-100) Mean Corpuscular Hemoglobin 34pg (25-35) 35pg (25-35) Mean Corpuscular Hemoglobin Concent 33g/dL (31-37) 33g/dL (31-37) Red Cell Distribution Width 13.7% (11.5-14.5) 13.9% (11.5-14.5) Platelet Count 181x10^3/uL (140-400) 178x10^3/uL (140-400) Neutrophils (%) (Auto) 83% (31-73) 74% (31-73) Lymphocytes (%) (Auto) 7% (24-48) 11% (24-48) Monocytes (%) (Auto) 7% (0-9) 9% (0-9) Eosinophils (%) (Auto) 2% (0-3) 5% (0-3) Basophils (%) (Auto) 0% (0-3) 1% (0-3) Neutrophils # (Auto) 6.9x10^3uL (1.8-7.7) 4.0x10^3uL (1.8-7.7) Lymphocytes # (Auto) 0.6x10^3/uL (1.0-4.8) 0.6x10^3/uL (1.0-4.8) Monocytes # (Auto) 0.6x10^3/uL (0.0-1.1) 0.5x10^3/uL (0.0-1.1) Eosinophils # (Auto) 0.2x10^3/uL (0.0-0.7) 0.3x10^3/uL (0.0-0.7) Basophils # (Auto) 0.0x10^3/uL (0.0-0.2) 0.0x10^3/uL (0.0-0.2) Sodium Level 139mmol/L (136-145) 138mmol/L (136-145) 139mmol/L (136-145) Potassium Level 3.3mmol/L (3.5-5.1) 3.0mmol/L (3.5-5.1) 3.8mmol/L (3.5-5.1) Chloride Level 102mmol/L (98-107) 102mmol/L (98-107) 104mmol/L (98-107) Carbon Dioxide Level 25mmol/L (21-32) 25mmol/L (21-32) 26mmol/L (21-32) Anion Gap 12 (6-14) 11 (6-14) 9 (6-14) Blood Urea Nitrogen 9mg/dL (7-20) 9mg/dL (7-20) 10mg/dL (7-20) Creatinine 1.3mg/dL (0.6-1.0) 1.3mg/dL (0.6-1.0) 1.3mg/dL (0.6-1.0) Estimated GFR (Cockcroft-Gault) 39.6 39.6 39.6 Glucose Level 95mg/dL (70-99) 91mg/dL (70-99) 86mg/dL (70-99) Calcium Level 8.5mg/dL (8.5-10.1) 8.5mg/dL (8.5-10.1) 9.2mg/dL (8.5-10.1) BUN/Creatinine Ratio 7 (6-20) Total Bilirubin 0.3mg/dL (0.2-1.0) Aspartate Amino Transf (AST/SGOT) 17U/L (15-37) Alanine Aminotransferase (ALT/SGPT) 13U/L (14-59) Alkaline Phosphatase 71U/L (46-116) Total Protein 6.7g/dL (6.4-8.2) Albumin 2.9g/dL (3.4-5.0) Albumin/Globulin Ratio 0.8 (1.0-1.7) Laboratory Tests Test 11/06/16 14:05 11/07/16 06:00 Sodium Level 138mmol/L (136-145) 139mmol/L (136-145) Potassium Level 3.0mmol/L (3.5-5.1) 3.8mmol/L (3.5-5.1) Chloride Level 102mmol/L (98-107) 104mmol/L (98-107) Carbon Dioxide Level 25mmol/L (21-32) 26mmol/L (21-32) Anion Gap 11 (6-14) 9 (6-14) Blood Urea Nitrogen 9mg/dL (7-20) 10mg/dL (7-20) Creatinine 1.3mg/dL (0.6-1.0) 1.3mg/dL (0.6-1.0) Estimated GFR (Cockcroft-Gault) 39.6 39.6 BUN/Creatinine Ratio 7 (6-20) Glucose Level 91mg/dL (70-99) 86mg/dL (70-99) Calcium Level 8.5mg/dL (8.5-10.1) 9.2mg/dL (8.5-10.1) Total Bilirubin 0.3mg/dL (0.2-1.0) Aspartate Amino Transf (AST/SGOT) 17U/L (15-37) Alanine Aminotransferase (ALT/SGPT) 13U/L (14-59) Alkaline Phosphatase 71U/L (46-116) Total Protein 6.7g/dL (6.4-8.2) Albumin 2.9g/dL (3.4-5.0) Albumin/Globulin Ratio 0.8 (1.0-1.7) White Blood Count 5.4x10^3/uL (4.0-11.0) Red Blood Count 2.58x10^6/uL (3.50-5.40) Hemoglobin 8.9g/dL (12.0-15.5) Hematocrit 27.1% (36.0-47.0) Mean Corpuscular Volume 105fL (79-100) Mean Corpuscular Hemoglobin 35pg (25-35) Mean Corpuscular Hemoglobin Concent 33g/dL (31-37) Red Cell Distribution Width 13.9% (11.5-14.5) Platelet Count 178x10^3/uL (140-400) Neutrophils (%) (Auto) 74% (31-73) Lymphocytes (%) (Auto) 11% (24-48) Monocytes (%) (Auto) 9% (0-9) Eosinophils (%) (Auto) 5% (0-3) Basophils (%) (Auto) 1% (0-3) Neutrophils # (Auto) 4.0x10^3uL (1.8-7.7) Lymphocytes # (Auto) 0.6x10^3/uL (1.0-4.8) Monocytes # (Auto) 0.5x10^3/uL (0.0-1.1) Eosinophils # (Auto) 0.3x10^3/uL (0.0-0.7) Basophils # (Auto) 0.0x10^3/uL (0.0-0.2) Medications Current Medications Sodium Chloride 3 ml 3 ml PRN DAILY PRN IV AFTER MEDS AND BLOOD DRAWS; Start at 18:45 Potassium Chloride/Sodium Chloride (KCl 20 Meq-0.45% Nacl) 1,000 ml @ 100 mls/ hr Q10H IV Last administered on 11/07/16 03:22; Start 11/02/16 at 19:15 Acetaminophen (Tylenol) 650 mg PRN Q6HRS PRN PO MILD PAIN / TEMP Last administered on 11/04/16 19:54; Start 11/02/16 at 18:45 Allopurinol (Zyloprim) 100 mg DAILY PO Last administered on 11/07/16 08:20; Start 11/03/16 at 09:00 Amlodipine Besylate (Norvasc) 5 mg DAILY PO Last administered on 11/07/16 08: 20; Start 11/03/16 at 09:00 Gabapentin (Neurontin) 100 mg BID PO Last administered on 11/07/16 08:19; Start 11/02/16 at 21:00 Levothyroxine Sodium (Synthroid) 75 mcg DAILY07 PO Last administered on 06:40; Start 11/03/16 at 07:00 Mirtazapine (Remeron) 15 mg QHS PO Last administered on 11/06/16 21:20; Start 11/02/16 at 21:00 Pantoprazole Sodium (Protonix) 40 mg DAILYAC PO Last administered on 11/07/16 08:19; Start 11/03/16 at 07:30 Hydrochlorothiazide (Hydrodiuril) 25 mg DAILY PO Last administered on 08:20; Start 11/03/16 at 09:00 Theophylline (Theodur) 200 mg BID PO Last administered on 11/03/16 10:09; Start 11/02/16 at 21:00; Stop 11/03/16 at 14:02; Status DC Acetaminophen/ Hydrocodone Bitart (Lortab 5/325) 1 tab PRN Q6HRS PRN PO PAIN; Start 11/02/16 at 20:45; Status Cancel Hydromorphone HCl (Dilaudid) 4 mg PRN Q4HRS PRN PO PAIN Last administered on 09:49; Start 11/02/16 at 21:45 Cyanocobalamin (Vitamin B-12) 1,000 mcg DAILY PO Last administered on 08:19; Start 11/03/16 at 12:30 Enoxaparin Sodium (Lovenox 30mg Syringe) 30 mg DAILY SQ Last administered on 08:20; Start 11/03/16 at 12:30 Theophylline 130 mg Q8HRS PO Last administered on 11/07/16 08:19; Start at 22:00 Gadobutrol (Gadavist) 4 mmol 1X ONCE IV ; Start 11/04/16 at 13:00; Stop 11/04/16 at 13:03; Status DC Calcium/Vitamin D (Oscal D 500mg/ 200uts) 1 tab BIDWMEALS PO Last administered on 11/07/16 08:19; Start 11/05/16 at 17:00 Potassium Chloride 20 meq 20 meq 1X ONCE PO Last administered on 11/06/16 14: 00; Start 11/06/16 at 14:00; Stop 11/06/16 at 14:01; Status DC Magnesium Sulfate/ Dextrose (Magnesium Sulfate PREMIX 2GM) 50 ml @ 25 mls/hr 1X ONCE IV Last administered on 11/06/16 14:42; Start 11/06/16 at 14:30; Stop 11/06/16 at 16:29; Status DC Vitamin D (Vitamin D3) 5,000 unit DAILY PO Last administered on 11/07/16 08:20 ; Start 11/07/16 at 09:00 Active Scripts Active Reported Remeron (Mirtazapine) 15 Mg Tablet 1 Tab PO QHS Theophylline (Theophylline Anhydrous) 400 Mg Tablet.er 200 Mg PO TID Potassium Chloride 20 Meq Tablet.er 20 Meq PO BID Nexium Capsule (Esomeprazole Magnesium) 40 Mg Capsule.dr 1 Cap PO DAILY Levothyroxine Sodium 75 Mcg Tablet 1 Tab PO DAILY Hydromorphone Hcl 4 Mg Tablet 1 Tab PO QID Hydrochlorothiazide Tablet (Hydrochlorothiazide) 50 Mg Tablet 25 Mg PO DAILY Gabapentin 100 Mg Capsule 100 Mg PO BID Amlodipine Besylate 5 Mg Tablet 5 Mg PO DAILY Allopurinol 100 Mg Tablet 1 Tab PO BID Vitals/I & O Vital Sign - Last 24 Hours 11/06/16 11/06/16 11/06/16 11/07/16 15:00 19:00 20:00 00:00 Temp 98.0 99.5 98.4 98.0 99.5 98.4 Pulse 112 104 98 Resp 18 18 B/P 111/65 115/73 129/71 Pulse Ox 93 92 92 O2 Delivery Room Air Room Air Room Air Room Air 11/07/16 11/07/16 11/07/16 11/07/16 03:00 08:00 08:20 10:46 Temp 98.6 97.9 98.6 97.9 Pulse 106 106 106 Resp 18 18 B/P 140/77 140/77 123/61 Pulse Ox 92 94 O2 Delivery Room Air Room Air Room Air Intake and Output 11/06/16 11/06/16 11/07/16 15:00 23:00 07:00 Intake Total 1162 ml 75 ml Output Total 0 ml 2 ml Balance 1162 ml 73 ml MYLES MACK MD Nov 07, 2016 12:45
[2016-11-07] MEDS ORDERED: GADOBUTROL 7.5 MMOL/7.5 ML VIAL IV ONE (13:45)
--- NOTE | 2016-11-07 14:30 | RAD ---
PROCEDURE MRI brain with contrast HISTORY Evaluate for metastases, history of lung cancer, mental status changes TECHNIQUE Axial diffusion, axial T1, postcontrast axial and coronal T1 weighted images were acquired of the brain. Contrast: 5 cc Gadavist COMPARISON November 04, 2016 noncontrast exam. FINDINGS There is no restricted diffusion suggestive of a recent infarct or cytotoxic edema. There is no new midline shift, extra-axial fluid collection, intra-axial mass effect. There is no nodular parenchymal or leptomeningeal enhancement. Ventricular size is within normal limits. IMPRESSION 1. There is no abnormal intracranial enhancement to suggest intracranial metastatic disease. Electronically signed by: Jesus Manuel Brand MD (Nov 07, 2016 14:29:29)
[2016-11-07 14:53] VITALS: BP 99/57
[2016-11-07 19:00] VITALS: BP 125/68
[2016-11-07] MEDS: MIRTAZAPINE 15 MG TABLET PO SCH (20:09)
[2016-11-07] MEDS: ACETAMINOPHEN 325 MG TABLET. PO PRN (21:52)
[2016-11-07 23:12] VITALS: BP 132/76
[2016-11-08 03:22] VITALS: BP 137/81
[2016-11-08] MEDS: POTASSIUM CL 20MEQ-0.45% NACL 1,000 ML IV SCH ×2 (05:15→10:55)
[2016-11-08] MEDS: HYDROMORPHONE 4 MG TABLET. PO PRN ×3 (06:35→16:45)
[2016-11-08] MEDS: LEVOTHYROXINE 75 MCG TABLET PO SCH (06:35)
[2016-11-08] MEDS: THEOPHYLLINE 80 MG/15 ML PO SCH ×2 (06:35→15:22)
[2016-11-08 07:00] VITALS: BP 150/83
[2016-11-08 07:12] LABS: CALCIUM 8.8 mg/dL (8.5-10.1); CREATININE 1.4 mg/dL (0.6-1.0); GFR 36.4; MAGNESIUM 1.5 mg/dL (1.8-2.4); POTASSIUM 3.4 mmol/L (3.5-5.1)
[2016-11-08] MEDS: HYDROCHLOROTHIAZIDE 25 MG TABLET PO SCH (08:38)
[2016-11-08] MEDS: ALLOPURINOL 100 MG TABLET. PO SCH (08:38)
[2016-11-08] MEDS: CYANOCOBALAMIN (VITAMIN B-12) 1,000 MCG TABLET. PO SCH (08:38)
[2016-11-08] MEDS: PANTOPRAZOLE 40 MG TABLET. PO SCH (08:38)
[2016-11-08] MEDS: CHOLECALCIFEROL (VITAMIN D3) 5,000 UNIT CAPSULE PO SCH (08:38)
[2016-11-08] MEDS: GABAPENTIN 100 MG CAPSULE. PO SCH (08:38)
[2016-11-08] MEDS: AMLODIPINE BESYLATE 5 MG TABLET PO SCH (08:39)
[2016-11-08] MEDS: ENOXAPARIN 30 MG/0.3 ML DISP.SYRIN. SQ SCH (08:39)
[2016-11-08] MEDS: CALCIUM CARB/VIT D3 500/200 TABLET PO SCH (08:39)
--- NOTE | 2016-11-08 10:31 | PDOC ---
Renal-Progress Notes Subjective Notes Notes NO COMPLAINTS History of Present Illness Hx of present illness SOME CONFUSION Vitals Vitals Vital Signs Date Time Temp Pulse Resp B/P Pulse Ox O2 Delivery O2 Flow Rate FiO2 11/08/16 08:39 112 150/83 11/08/16 08:00 Room Air 11/08/16 07:00 98.1 18 96 98.1 Weight Weight [ ] I.O. Intake and Output Intake and Output 11/08/16 07:00 Intake Total 1737 ml Balance 1737 ml Intake Oral 750 ml IV Total 987 ml # Voids 3 Labs Labs Laboratory Tests Test 11/08/16 06:45 Sodium Level 138mmol/L (136-145) Potassium Level 3.4mmol/L (3.5-5.1) Chloride Level 103mmol/L (98-107) Carbon Dioxide Level 28mmol/L (21-32) Anion Gap 7 (6-14) Blood Urea Nitrogen 11mg/dL (7-20) Creatinine 1.4mg/dL (0.6-1.0) Estimated GFR (Cockcroft-Gault) 36.4 Glucose Level 85mg/dL (70-99) Calcium Level 8.8mg/dL (8.5-10.1) Magnesium Level 1.5mg/dL (1.8-2.4) Review of Systems Constitutional: yes: no symptom reported Physical Exam General Appearance: no apparent distress Skin: warm Respiratory: bilateral CTA Heart: S1S2, RRR Abdomen: soft, bowel sounds present Neurology: alert Assessment Assessment IMP CKD STAGE 3 HYPOKALEMIA LOW MAG MET ENCEPHALOPATHY HYPOTHYROIDISM PLAN REPLACE K REPLACE MAG CONT IVF'S LOU CHEN MD Nov 08, 2016 10:31
--- NOTE | 2016-11-08 10:53 | PDOC ---
PROGRESS NOTES Subjective Subjective Patient is complaining of chest pressure today that radiates to her neck and both arms. She states it is transient and the pain was as bad a 10/10 overnight. She states she has not had this before. She reports improvement in her shortness of breath, but family notes increased yellow sputum production with what looked like food. She reports chills, but denies fever, nausea or vomiting. She denies any lightheadedness today and family notes her confusion is markedly improved. Objective Objective Vital Signs Date Time Temp Pulse Resp B/P Pulse Ox O2 Delivery O2 Flow Rate FiO2 11/08/16 08:39 112 150/83 11/08/16 08:00 Room Air 11/08/16 07:00 98.1 18 96 98.1 Intake and Output 11/08/16 07:00 Intake Total 1737 ml Balance 1737 ml Intake Oral 750 ml IV Total 987 ml # Voids 3 Physical Exam Physical Exam No changes in cardiac exam. Mild bibasilar rales appreciated. Assessment Assessment Problems Medical Problems: (1) Myxedema coma Status: Acute Plan Plan of Care Patient is compensating cardiac simons. I agree with current plan. New chest pain likely secondary to a rib fracture, recommend CXR with rib films. Comment Review of Relevant I have reviewed the following items shirin (where applicable) has been applied. Labs Laboratory Tests Test 11/06/16 14:05 11/07/16 06:00 11/08/16 06:45 Sodium Level 138mmol/L (136-145) 139mmol/L (136-145) 138mmol/L (136-145) Potassium Level 3.0mmol/L (3.5-5.1) 3.8mmol/L (3.5-5.1) 3.4mmol/L (3.5-5.1) Chloride Level 102mmol/L (98-107) 104mmol/L (98-107) 103mmol/L (98-107) Carbon Dioxide Level 25mmol/L (21-32) 26mmol/L (21-32) 28mmol/L (21-32) Anion Gap 11 (6-14) 9 (6-14) 7 (6-14) Blood Urea Nitrogen 9mg/dL (7-20) 10mg/dL (7-20) 11mg/dL (7-20) Creatinine 1.3mg/dL (0.6-1.0) 1.3mg/dL (0.6-1.0) 1.4mg/dL (0.6-1.0) Estimated GFR (Cockcroft-Gault) 39.6 39.6 36.4 BUN/Creatinine Ratio 7 (6-20) Glucose Level 91mg/dL (70-99) 86mg/dL (70-99) 85mg/dL (70-99) Calcium Level 8.5mg/dL (8.5-10.1) 9.2mg/dL (8.5-10.1) 8.8mg/dL (8.5-10.1) Total Bilirubin 0.3mg/dL (0.2-1.0) Aspartate Amino Transf (AST/SGOT) 17U/L (15-37) Alanine Aminotransferase (ALT/SGPT) 13U/L (14-59) Alkaline Phosphatase 71U/L (46-116) Total Protein 6.7g/dL (6.4-8.2) Albumin 2.9g/dL (3.4-5.0) Albumin/Globulin Ratio 0.8 (1.0-1.7) White Blood Count 5.4x10^3/uL (4.0-11.0) Red Blood Count 2.58x10^6/uL (3.50-5.40) Hemoglobin 8.9g/dL (12.0-15.5) Hematocrit 27.1% (36.0-47.0) Mean Corpuscular Volume 105fL (79-100) Mean Corpuscular Hemoglobin 35pg (25-35) Mean Corpuscular Hemoglobin Concent 33g/dL (31-37) Red Cell Distribution Width 13.9% (11.5-14.5) Platelet Count 178x10^3/uL (140-400) Neutrophils (%) (Auto) 74% (31-73) Lymphocytes (%) (Auto) 11% (24-48) Monocytes (%) (Auto) 9% (0-9) Eosinophils (%) (Auto) 5% (0-3) Basophils (%) (Auto) 1% (0-3) Neutrophils # (Auto) 4.0x10^3uL (1.8-7.7) Lymphocytes # (Auto) 0.6x10^3/uL (1.0-4.8) Monocytes # (Auto) 0.5x10^3/uL (0.0-1.1) Eosinophils # (Auto) 0.3x10^3/uL (0.0-0.7) Basophils # (Auto) 0.0x10^3/uL (0.0-0.2) Magnesium Level 1.5mg/dL (1.8-2.4) Laboratory Tests Test 11/08/16 06:45 Sodium Level 138mmol/L (136-145) Potassium Level 3.4mmol/L (3.5-5.1) Chloride Level 103mmol/L (98-107) Carbon Dioxide Level 28mmol/L (21-32) Anion Gap 7 (6-14) Blood Urea Nitrogen 11mg/dL (7-20) Creatinine 1.4mg/dL (0.6-1.0) Estimated GFR (Cockcroft-Gault) 36.4 Glucose Level 85mg/dL (70-99) Calcium Level 8.8mg/dL (8.5-10.1) Magnesium Level 1.5mg/dL (1.8-2.4) Medications Current Medications Sodium Chloride 3 ml 3 ml PRN DAILY PRN IV AFTER MEDS AND BLOOD DRAWS; Start at 18:45 Potassium Chloride/Sodium Chloride (KCl 20 Meq-0.45% Nacl) 1,000 ml @ 75 mls/ hr [id number] IV Last administered on 11/08/16 05:15; Start 11/02/16 at 19:15 Acetaminophen (Tylenol) 650 mg PRN Q6HRS PRN PO MILD PAIN / TEMP Last administered on 11/07/16 21:52; Start 11/02/16 at 18:45 Allopurinol (Zyloprim) 100 mg DAILY PO Last administered on 11/08/16 08:38; Start 11/03/16 at 09:00 Amlodipine Besylate (Norvasc) 5 mg DAILY PO Last administered on 11/08/16 08: 39; Start 11/03/16 at 09:00 Gabapentin (Neurontin) 100 mg BID PO Last administered on 11/08/16 08:38; Start 11/02/16 at 21:00 Levothyroxine Sodium (Synthroid) 75 mcg DAILY07 PO Last administered on 06:35; Start 11/03/16 at 07:00 Mirtazapine (Remeron) 15 mg QHS PO Last administered on 11/07/16 20:09; Start 11/02/16 at 21:00 Pantoprazole Sodium (Protonix) 40 mg DAILYAC PO Last administered on 11/08/16 08:38; Start 11/03/16 at 07:30 Hydrochlorothiazide (Hydrodiuril) 25 mg DAILY PO Last administered on 08:38; Start 11/03/16 at 09:00 Theophylline (Theodur) 200 mg BID PO Last administered on 11/03/16 10:09; Start 11/02/16 at 21:00; Stop 11/03/16 at 14:02; Status DC Acetaminophen/ Hydrocodone Bitart (Lortab 5/325) 1 tab PRN Q6HRS PRN PO PAIN; Start 11/02/16 at 20:45; Status Cancel Hydromorphone HCl (Dilaudid) 4 mg PRN Q4HRS PRN PO PAIN Last administered on 08:38; Start 11/02/16 at 21:45 Cyanocobalamin (Vitamin B-12) 1,000 mcg DAILY PO Last administered on 08:38; Start 11/03/16 at 12:30 Enoxaparin Sodium (Lovenox 30mg Syringe) 30 mg DAILY SQ Last administered on 08:39; Start 11/03/16 at 12:30 Theophylline 130 mg Q8HRS PO Last administered on 11/08/16 06:35; Start at 22:00 Gadobutrol (Gadavist) 4 mmol 1X ONCE IV ; Start 11/04/16 at 13:00; Stop 11/04/16 at 13:03; Status DC Calcium/Vitamin D (Oscal D 500mg/ 200uts) 1 tab BIDWMEALS PO Last administered on 11/08/16 08:39; Start 11/05/16 at 17:00 Potassium Chloride 20 meq 20 meq 1X ONCE PO Last administered on 1/9/17at 14: 00; Start 11/06/16 at 14:00; Stop 11/06/16 at 14:01; Status DC Magnesium Sulfate/ Dextrose (Magnesium Sulfate PREMIX 2GM) 50 ml @ 25 mls/hr 1X ONCE IV Last administered on 11/06/16 14:42; Start 11/06/16 at 14:30; Stop 11/06/16 at 16:29; Status DC Vitamin D (Vitamin D3) 5,000 unit DAILY PO Last administered on 11/08/16 08:38 ; Start 11/07/16 at 09:00 Gadobutrol 5 mmol 5 mmol 1X ONCE IV Last administered on 11/07/16 14:18; Start 11/07/16 at 13:45; Stop 11/07/16 at 13:49; Status DC Magnesium Sulfate/ Dextrose (Magnesium Sulfate PREMIX 1GM) 100 ml @ 100 mls/hr 1X ONCE IV ; Start 11/08/16 at 11:00; Stop 11/08/16 at 11:59 Active Scripts Active Reported Remeron (Mirtazapine) 15 Mg Tablet 1 Tab PO QHS Theophylline (Theophylline Anhydrous) 400 Mg Tablet.er 200 Mg PO TID Potassium Chloride 20 Meq Tablet.er 20 Meq PO BID Nexium Capsule (Esomeprazole Magnesium) 40 Mg Capsule.dr 1 Cap PO DAILY Levothyroxine Sodium 75 Mcg Tablet 1 Tab PO DAILY Hydromorphone Hcl 4 Mg Tablet 1 Tab PO QID Hydrochlorothiazide Tablet (Hydrochlorothiazide) 50 Mg Tablet 25 Mg PO DAILY Gabapentin 100 Mg Capsule 100 Mg PO BID Amlodipine Besylate 5 Mg Tablet 5 Mg PO DAILY Allopurinol 100 Mg Tablet 1 Tab PO BID Vitals/I & O Vital Sign - Last 24 Hours 11/07/16 11/07/16 11/07/16 11/07/16 10:46 14:53 19:00 20:00 Temp 97.9 98.0 98.1 97.9 98.0 98.1 Pulse 106 110 105 Resp B/P 123/61 99/57 125/68 Pulse Ox 94 98 92 O2 Delivery Room Air Room Air Room Air Room Air 11/07/16 11/08/16 11/08/16 11/08/16 23:12 03:22 07:00 08:00 Temp 98.2 98.2 98.1 98.2 98.2 98.1 Pulse 106 97 112 Resp 18 18 18 B/P 132/76 137/81 150/83 Pulse Ox 93 94 96 O2 Delivery Room Air Room Air Room Air Room Air 11/08/16 08:39 Pulse 112 B/P 150/83 Intake and Output 11/07/16 11/07/16 11/08/16 15:00 23:00 07:00 Intake Total 400 ml 1087 ml 250 ml Balance 400 ml 1087 ml 250 ml MYLES MACK MD Nov 08, 2016 10:53
[2016-11-08 11:00] VITALS: BP 124/74
[2016-11-08] MEDS ORDERED: MAGNESIUM SULFATE 1GM 100 ML IV ONE (11:00)
--- NOTE | 2016-11-08 12:20 | PDOC ---
PROGRESS NOTES Assessment Problems Medical Problems: (1) Myxedema coma Status: Acute Metabolic encephalopathy. Myxedema, TSH 172.5 Non small cell lung cancer stage III History of seizure in 1970 Plan Treat hypothyroidism. Creatinine is still 1.3, I don't think she needs the contrast portion of the brain MRI. Discussed with family Subjective Complains of some dyspnea and chest pain, cardiology has seen. She also complains of hot and cold feelings which I reassured her were probably related to adjusting her thyroid Objective Vital Signs Date Time Temp Pulse Resp B/P Pulse Ox O2 Delivery O2 Flow Rate FiO2 11/08/16 11:00 97.7 107 18 124/74 93 Room Air 97.7 Intake and Output 11/08/16 07:00 Intake Total 1737 ml Balance 1737 ml Intake Oral 750 ml IV Total 987 ml # Voids 3 PHYSICAL EXAM Alert. Oriented to place and person, knows month and year. PERRL. EOMI. CN: no focal findings. Muscle tone: normal. Muscle strength: 4 -/5 DTR: 1+ Plantar reflex: flexor Gait: not examined in bed. Sensory exam: no abnormal findings. No cerebellar signs elicited. Review of Relevant I have reviewed the following items shirin (where applicable) has been applied. Labs Laboratory Tests Test 11/06/16 14:05 11/07/16 06:00 11/08/16 06:45 Sodium Level 138mmol/L (136-145) 139mmol/L (136-145) 138mmol/L (136-145) Potassium Level 3.0mmol/L (3.5-5.1) 3.8mmol/L (3.5-5.1) 3.4mmol/L (3.5-5.1) Chloride Level 102mmol/L (98-107) 104mmol/L (98-107) 103mmol/L (98-107) Carbon Dioxide Level 25mmol/L (21-32) 26mmol/L (21-32) 28mmol/L (21-32) Anion Gap 11 (6-14) 9 (6-14) 7 (6-14) Blood Urea Nitrogen 9mg/dL (7-20) 10mg/dL (7-20) 11mg/dL (7-20) Creatinine 1.3mg/dL (0.6-1.0) 1.3mg/dL (0.6-1.0) 1.4mg/dL (0.6-1.0) Estimated GFR (Cockcroft-Gault) 39.6 39.6 36.4 BUN/Creatinine Ratio 7 (6-20) Glucose Level 91mg/dL (70-99) 86mg/dL (70-99) 85mg/dL (70-99) Calcium Level 8.5mg/dL (8.5-10.1) 9.2mg/dL (8.5-10.1) 8.8mg/dL (8.5-10.1) Total Bilirubin 0.3mg/dL (0.2-1.0) Aspartate Amino Transf (AST/SGOT) 17U/L (15-37) Alanine Aminotransferase (ALT/SGPT) 13U/L (14-59) Alkaline Phosphatase 71U/L (46-116) Total Protein 6.7g/dL (6.4-8.2) Albumin 2.9g/dL (3.4-5.0) Albumin/Globulin Ratio 0.8 (1.0-1.7) White Blood Count 5.4x10^3/uL (4.0-11.0) Red Blood Count 2.58x10^6/uL (3.50-5.40) Hemoglobin 8.9g/dL (12.0-15.5) Hematocrit 27.1% (36.0-47.0) Mean Corpuscular Volume 105fL (79-100) Mean Corpuscular Hemoglobin 35pg (25-35) Mean Corpuscular Hemoglobin Concent 33g/dL (31-37) Red Cell Distribution Width 13.9% (11.5-14.5) Platelet Count 178x10^3/uL (140-400) Neutrophils (%) (Auto) 74% (31-73) Lymphocytes (%) (Auto) 11% (24-48) Monocytes (%) (Auto) 9% (0-9) Eosinophils (%) (Auto) 5% (0-3) Basophils (%) (Auto) 1% (0-3) Neutrophils # (Auto) 4.0x10^3uL (1.8-7.7) Lymphocytes # (Auto) 0.6x10^3/uL (1.0-4.8) Monocytes # (Auto) 0.5x10^3/uL (0.0-1.1) Eosinophils # (Auto) 0.3x10^3/uL (0.0-0.7) Basophils # (Auto) 0.0x10^3/uL (0.0-0.2) Magnesium Level 1.5mg/dL (1.8-2.4) Laboratory Tests Test 11/08/16 06:45 Sodium Level 138mmol/L (136-145) Potassium Level 3.4mmol/L (3.5-5.1) Chloride Level 103mmol/L (98-107) Carbon Dioxide Level 28mmol/L (21-32) Anion Gap 7 (6-14) Blood Urea Nitrogen 11mg/dL (7-20) Creatinine 1.4mg/dL (0.6-1.0) Estimated GFR (Cockcroft-Gault) 36.4 Glucose Level 85mg/dL (70-99) Calcium Level 8.8mg/dL (8.5-10.1) Magnesium Level 1.5mg/dL (1.8-2.4) Medications Current Medications Sodium Chloride 3 ml 3 ml PRN DAILY PRN IV AFTER MEDS AND BLOOD DRAWS; Start at 18:45 Potassium Chloride/Sodium Chloride (KCl 20 Meq-0.45% Nacl) 1,000 ml @ 75 mls/ hr [id number] IV Last administered on 11/08/16 10:55; Start 11/02/16 at 19:15 Acetaminophen (Tylenol) 650 mg PRN Q6HRS PRN PO MILD PAIN / TEMP Last administered on 11/07/16 21:52; Start 11/02/16 at 18:45 Allopurinol (Zyloprim) 100 mg DAILY PO Last administered on 11/08/16 08:38; Start 11/03/16 at 09:00 Amlodipine Besylate (Norvasc) 5 mg DAILY PO Last administered on 11/08/16 08: 39; Start 11/03/16 at 09:00 Gabapentin (Neurontin) 100 mg BID PO Last administered on 11/08/16 08:38; Start 11/02/16 at 21:00 Levothyroxine Sodium (Synthroid) 75 mcg DAILY07 PO Last administered on 06:35; Start 11/03/16 at 07:00 Mirtazapine (Remeron) 15 mg QHS PO Last administered on 11/07/16 20:09; Start 11/02/16 at 21:00 Pantoprazole Sodium (Protonix) 40 mg DAILYAC PO Last administered on 11/08/16 08:38; Start 11/03/16 at 07:30 Hydrochlorothiazide (Hydrodiuril) 25 mg DAILY PO Last administered on 08:38; Start 11/03/16 at 09:00 Theophylline (Theodur) 200 mg BID PO Last administered on 11/03/16 10:09; Start 11/02/16 at 21:00; Stop 11/03/16 at 14:02; Status DC Acetaminophen/ Hydrocodone Bitart (Lortab 5/325) 1 tab PRN Q6HRS PRN PO PAIN; Start 11/02/16 at 20:45; Status Cancel Hydromorphone HCl (Dilaudid) 4 mg PRN Q4HRS PRN PO PAIN Last administered on 08:38; Start 11/02/16 at 21:45 Cyanocobalamin (Vitamin B-12) 1,000 mcg DAILY PO Last administered on 08:38; Start 11/03/16 at 12:30 Enoxaparin Sodium (Lovenox 30mg Syringe) 30 mg DAILY SQ Last administered on 08:39; Start 11/03/16 at 12:30 Theophylline 130 mg Q8HRS PO Last administered on 11/08/16 06:35; Start at 22:00 Gadobutrol (Gadavist) 4 mmol 1X ONCE IV ; Start 11/04/16 at 13:00; Stop 11/04/16 at 13:03; Status DC Calcium/Vitamin D (Oscal D 500mg/ 200uts) 1 tab BIDWMEALS PO Last administered on 11/08/16 08:39; Start 11/05/16 at 17:00 Potassium Chloride 20 meq 20 meq 1X ONCE PO Last administered on 11/06/16 14: 00; Start 11/06/16 at 14:00; Stop 11/06/16 at 14:01; Status DC Magnesium Sulfate/ Dextrose (Magnesium Sulfate PREMIX 2GM) 50 ml @ 25 mls/hr 1X ONCE IV Last administered on 11/06/16 14:42; Start 11/06/16 at 14:30; Stop 11/06/16 at 16:29; Status DC Vitamin D (Vitamin D3) 5,000 unit DAILY PO Last administered on 11/08/16 08:38 ; Start 11/07/16 at 09:00 Gadobutrol 5 mmol 5 mmol 1X ONCE IV Last administered on 11/07/16 14:18; Start 11/07/16 at 13:45; Stop 11/07/16 at 13:49; Status DC Magnesium Sulfate/ Dextrose (Magnesium Sulfate PREMIX 1GM) 100 ml @ 100 mls/hr 1X ONCE IV Last administered on 11/08/16 12:08; Start 11/08/16 at 11:00; Stop 11/08/16 at 11:59; Status DC Active Scripts Active Reported Remeron (Mirtazapine) 15 Mg Tablet 1 Tab PO QHS Theophylline (Theophylline Anhydrous) 400 Mg Tablet.er 200 Mg PO TID Potassium Chloride 20 Meq Tablet.er 20 Meq PO BID Nexium Capsule (Esomeprazole Magnesium) 40 Mg Capsule.dr 1 Cap PO DAILY Levothyroxine Sodium 75 Mcg Tablet 1 Tab PO DAILY Hydromorphone Hcl 4 Mg Tablet 1 Tab PO QID Hydrochlorothiazide Tablet (Hydrochlorothiazide) 50 Mg Tablet 25 Mg PO DAILY Gabapentin 100 Mg Capsule 100 Mg PO BID Amlodipine Besylate 5 Mg Tablet 5 Mg PO DAILY Allopurinol 100 Mg Tablet 1 Tab PO BID Vitals/I & O Vital Sign - Last 24 Hours 11/07/16 11/07/16 11/07/16 11/07/16 14:53 19:00 20:00 23:12 Temp 98.0 98.1 98.2 98.0 98.1 98.2 Pulse 110 105 106 Resp 18 B/P 99/57 125/68 132/76 Pulse Ox 98 92 93 O2 Delivery Room Air Room Air Room Air Room Air 11/08/16 11/08/16 11/08/16 11/08/16 03:22 07:00 08:00 08:39 Temp 98.2 98.1 98.2 98.1 Pulse 97 112 112 Resp 18 B/P 137/81 150/83 150/83 Pulse Ox 94 96 O2 Delivery Room Air Room Air Room Air 11/08/16 11:00 Temp 97.7 97.7 Pulse 107 Resp 18 B/P 124/74 Pulse Ox 93 O2 Delivery Room Air Intake and Output 11/07/16 11/07/16 11/08/16 15:00 23:00 07:00 Intake Total 400 ml 1087 ml 250 ml Balance 400 ml 1087 ml 250 ml PEDRITO ZAIDI MD Nov 08, 2016 12:20
[2016-11-08] MEDS ORDERED: CYAN10005 PO (13:44)
[2016-11-08] MEDS ORDERED: CYANOCOBALAMIN (VITAMIN B-12) 1,000 MCG/ML VIAL IM ONE (13:45)
--- NOTE | 2016-11-08 14:41 | RAD ---
Exam: PA and lateral chest radiograph, Bilateral Rib Radiographs History: Bilateral rib pain, cancer. 1. Comparison: Bilateral rib radiographs 11/03/2016. Findings: Cardiac silhouette appears within normal limits for size. Right chest port and catheter are unchanged. Right upper lobe parenchymal mass is similar to previous study. No pneumothorax or pleural effusion is seen. No acute airspace disease is identified. The dedicated rib radiographs again demonstrate mildly displaced sixth, seventh, eighth, and ninth left rib fractures. These are presumably recent. No displaced right rib fractures are seen. Impression: 1. Right apical lung mass. 2. No acute airspace disease identified in the chest. 3. Recent left sixth through ninth rib fractures.
[2016-11-08 15:00] VITALS: BP 109/63
== END 2016-11-08 16:45 | disposition home health service (06) | DRG 80 ==
LOC: 6 SOUTH 14:26
PROVIDERS: ADMIT Internal Medicine Hematology & Oncology; ATTEND Internal Medicine Hematology & Oncology
DX: E03.5 Myxedema coma (principal); G93.41 Metabolic encephalopathy; C34.90 Malignant neoplasm of unspecified part of unspecified bronchus or lung; E87.6 Hypokalemia; F32.9 Major depressive disorder, single episode, unspecified; I25.10 Atherosclerotic heart disease of native coronary artery without angina pectoris; J44.9 Chronic obstructive pulmonary disease, unspecified; J45.909 Unspecified asthma, uncomplicated; K59.03 Drug induced constipation; M10.9 Gout, unspecified; M19.90 Unspecified osteoarthritis, unspecified site; N18.3 Chronic kidney disease, stage 3 (moderate); E05.90 Thyrotoxicosis, unspecified without thyrotoxic crisis or storm; R56.9 Unspecified convulsions; M81.0 Age-related osteoporosis without current pathological fracture; E03.9 Hypothyroidism, unspecified; D53.9 Nutritional anemia, unspecified; T40.605A Adverse effect of unspecified narcotics, initial encounter; Z79.891 Long term (current) use of opiate analgesic; Z85.118 Personal history of other malignant neoplasm of bronchus and lung; Z87.891 Personal history of nicotine dependence; Z92.21 Personal history of antineoplastic chemotherapy; Z92.3 Personal history of irradiation; Z88.6 Allergy status to analgesic agent; Z88.1 Allergy status to other antibiotic agents; Z88.5 Allergy status to narcotic agent; Z88.2 Allergy status to sulfonamides
CPT/HCPCS: 36415; 70450; 70551; 70552; 71020; 71110; 71250; 80048; 80053; 81001; 82306; 82607; 82746; 83540; 83550; 83735; 84439; 84443; 84480; 84481; 85027; 85651; 93306; J1650; J3420; J3475; J7060; 97110; 97530; A9585

== ENCOUNTER 2016-11-16 13:24 | Emergency (ER) | payer MEDICARE, BC ==
[~2016-11-16] VITALS: Ht 147.3 cm; Wt 44.0 kg
[~2016-11-16 13:24] MED LIST changes: +CYAN10005 PO; +MIRT15TA PO
[2016-11-16] MEDS ORDERED: CEPHALEXIN 250 MG CAPSULE PO ONE (15:30)
[2016-11-16] MEDS ORDERED: CEPH-263 PO (15:45)
--- NOTE | 2016-11-16 15:46 | PHYS DOC ---
Past Medical History Past Medical History: Cancer, GERD, Hypertension, Hypothyroid, Other Additional Past Medical Histor: GOUT Past Surgical History: Other Additional Past Surgical Histo: RIGHT PORT PLACEMENT Alcohol Use: None Drug Use: None Adult General Chief Complaint Chief Complaint: UPPER EXTREMITY SWELLING HPI HPI Patient is a 76 year old female who presents with her and daughter for evaluation of right wrist pain and redness over the past day or so. They noted this area felt warm. They state she has had gout in other joints, but not this one before. They deny injury, nausea or vomiting, diarrhea, abnormal activity otherwise. They states she has been taking her medications by mouth and has been taking liquid intake by mouth. Review of Systems Review of Systems Constitutional: Denies fever or chills [] Eyes: Denies change in visual acuity, redness, or eye pain [] HENT: Denies nasal congestion or sore throat [] Respiratory: Denies cough or shortness of breath [] Cardiovascular: No additional information not addressed in HPI [] GI: Denies abdominal pain, nausea, vomiting, bloody stools or diarrhea [] : Denies dysuria or hematuria [] Musculoskeletal: Denies back pain [] Integument: Denies rash or skin lesions [] Neurologic: Denies headache, focal weakness or sensory changes [] Endocrine: Denies polyuria or polydipsia [] Current Medications Current Medications Current Medications Medications (Trade) Dose Ordered Sig/Morro Start Time Stop Time Status Last Admin Dose Admin Cephalexin HCl (Keflex) 250 mg 1X ONCE 11/16/16 15:30 11/16/16 15:31 DC 11/16/16 15:37 250 MG Allergies Allergies Allergies Coded Allergies Type Severity Reaction Last Updated Verified aspirin Allergy Intermediate 05/08/16 Yes codeine Allergy Intermediate 05/08/16 Yes methocarbamol Allergy Intermediate 05/08/16 Yes morphine Allergy Intermediate 05/08/16 Yes oxycodone Allergy Intermediate 05/08/16 Yes sulfamethoxazole Allergy Intermediate 05/08/16 Yes tramadol Allergy Intermediate 05/08/16 Yes trimethoprim Allergy Intermediate 05/08/16 Yes Physical Exam Physical Exam Constitutional: Well developed, well nourished, no acute distress, non-toxic appearance. [] HENT: Normocephalic, atraumatic, bilateral external ears normal, oropharynx moist, nose normal. [] Eyes: PERRLA, EOMI [] Neck: Normal range of motion, supple. [] Cardiovascular:Heart rate regular rhythm [] Lungs & Thorax: Bilateral breath sounds clear to auscultation [] Abdomen: Bowel sounds normal, soft, no tenderness. [] Skin: Warm, dry, no erythema, no rash. [] Back: Normal range of motion. [] Extremities: No obvious deformity; erythema spreading along the posterior aspect of distal forearm and hand that spares the fingers; has tenderness and warmth about this area, but no crepitance/induration/fluctuance; Full ROM with shoulder/elbow/wrist/hand; Can pronate/supinate; Can make fist/ok sign/thumb up/ finger cross and spread; Can flex/ex wrist; Good radial pulse and brisk cap refill equal bilaterally; sensation intact to light touch m/u/r/ax nerves Neurologic: Alert, normal motor function, normal sensory function, no focal deficits noted. [] Psychologic: Affect normal, judgement normal, mood normal. [] Current Patient Data Vital Signs Vital Signs Date Time Temp Pulse Resp B/P Pulse Ox O2 Delivery O2 Flow Rate FiO2 11/16/16 16:00 121 132/72 95 Room Air 11/16/16 14:23 98.3 20 98.3 Course & Med Decision Making Course & Med Decision Making Discussed her exam is concerning for cellulitis versus gouty arthritis. Discussed options for management, and family is okay with trial of oral management at home. She was given a dose of Keflex here and tolerated this well. Return precautions given. Family understands and agrees with plan. Dragon Disclaimer Dragon Disclaimer This electronic medical record was generated, in whole or in part, using a voice recognition dictation system. Departure Departure Impression: Primary Impression: Cellulitis Disposition: HOME, SELF-CARE Condition: STABLE Referrals: MONICA PETERSON (PCP) Patient Instructions: Cellulitis, [id number] Additional Instructions: Take Keflex as prescribed for cellulitis. Follow-up with your primary care doctor. Return for any concerns. Scripts Cephalexin (Keflex)250 Mg Capsule1 Cap PO QID #28 CAP Prov:Jayjay RUFFIN MD 11/16/16 Problem Qualifiers Primary Impression: Cellulitis Site of cellulitis: extremity Site of cellulitis of extremity: upper extremity Laterality: right Qualified Code: L03.113 - Cellulitis of right upper limb Jayjay RUFFIN MD Nov 16, 2016 15:45
[2016-11-16 16:00] VITALS: BP 132/72
== END 2016-11-16 16:05 | disposition home or self-care (01) ==
LOC: ER 13:24
DX: L03.113 Cellulitis of right upper limb (principal); M10.9 Gout, unspecified; I10 Essential (primary) hypertension; K21.9 Gastro-esophageal reflux disease without esophagitis; E03.9 Hypothyroidism, unspecified; Z88.6 Allergy status to analgesic agent; Z88.1 Allergy status to other antibiotic agents; Z88.5 Allergy status to narcotic agent; Z88.2 Allergy status to sulfonamides; Z88.8 Allergy status to other drugs, medicaments and biological substances
CPT/HCPCS: 99284

== ENCOUNTER 2016-11-21 08:09 | Outpatient (CLI) | payer MEDICARE, BC ==
[~2016-11-21] VITALS: Ht 147.3 cm; Wt 35.8 kg
[2016-11-21] VITALS (7 sets, daily range): BP systolic 103–119; BP diastolic 0–69
[~2016-11-21 08:09] MED LIST changes: +CEPH-263 PO
[2016-11-21 08:53] LABS: BASO # 0.1 x10^3/uL (0.0-0.2); BASO % 1 % (0-3); EOS % 2 % (0-3); HEMATOCRIT 30.5 % (36.0-47.0); HEMOGLOBIN 10.1 g/dL (12.0-15.5); LYMPH # 0.5 x10^3/uL (1.0-4.8); LYMPH % 8 % (24-48); MEAN CORPUSCULAR HEMOGLOBIN 33 pg (25-35); MEAN CORPUSCULAR HGB CONC 33 g/dL (31-37); MEAN CORPUSCULAR VOLUME 99 fL (79-100); MONO % 6 % (0-9); NEUT % 83 % (31-73); PLATELET COUNT 282 x10^3/uL (140-400); WHITE BLOOD COUNT 6.3 x10^3/uL (4.0-11.0)
[2016-11-21] MEDS ORDERED: NITR1PAT11 TD (08:55)
[2016-11-21] MEDS ORDERED: FERR-26 PO (08:55)
[2016-11-21 09:05] LABS: INR 1.2 (0.8-1.1); PROTHROMBIN TIME PATIENT 14.1 SEC (11.7-14.0)
[2016-11-21] MEDS ORDERED: LIDOCAINE 1%/EPI 1:100,000 20 ML VIAL. ONE (11:56)
[2016-11-21] MEDS ORDERED: MIDAZOLAM HCL 2 MG/2 ML VIAL. ONE (12:05)
[2016-11-21] MEDS ORDERED: FENTANYL PF 100 MCG/2 ML VIAL. ONE (12:05)
[2016-11-21] MEDS ORDERED: FLUMAZENIL 0.5 MG/5 ML VIAL. IV ONE (12:09)
[2016-11-21] MEDS ORDERED: NALOXONE 0.4 MG/ML VIAL. ONE (12:09)
[2016-11-21] MEDS ORDERED: FENTANYL PF 100 MCG/2 ML VIAL. IV ONE (12:30)
[2016-11-21] MEDS ORDERED: LIDOCAINE 1%/EPI 1:100,000 20 ML VIAL. IJ ONE (12:30)
[2016-11-21] MEDS ORDERED: LIDOCAINE 1% / SOD BICARB 8.4% 20 ML VIAL. IJ ONE (12:30)
[2016-11-21] MEDS ORDERED: MIDAZOLAM HCL 2 MG/2 ML VIAL. IV ONE (12:30)
--- NOTE | 2016-11-21 12:56 | PDOC ---
MODERATE SEDATION ASSESSMENT RISKS/ALTERNATIVES Risks/Alternatives Risks and alternatives of this type of sedation and procedure discussed with: RISK/ALTERNATIVES: Patient H & P ON CHART H & P H & P on chart and reviewed for co-morbid conditions and appropriate labs. H&P ON CHART: Yes STATUS PREG STATUS ASSESSED: N/A MEDS/ALLERGIES REVIEWED Meds/Allergies Reviewed Medications and Allergies including time and route of recently administered narcotics and sedatives. MEDS/ALLERGIES REVIEWED: Yes ASA RATING ASA RATING: III AIRWAY ASSESSMENT Airway Assessment Airway patency, oral function limitations, presence of caps, crowns, dentures, partials, and ability to extend neck assessed. AIRWAY ASSESSMENT: Yes MALLAMPATI SCORE MALLAMPATI SCORE: II PRE-SEDATION ASSESSMENT PRE-SEDATION ASSESSMENT: Yes ZANDRA BLAKE MD Nov 21, 2016 12:56
--- NOTE | 2016-11-21 12:59 | PDOC ---
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 Post-Procedure Diagnosis Post-Procedure Diagnosis Same Procedure Performed Procedure Performed Removal of rt IJ Slim Power Port Type of Anesthesia Type of Anesthesia Local + Mod sedation Estimated Blood Loss EBL: Minimal Specimens Specimans 6F Slim Power Port removed and discarded Condition of Patient Condition of Patient Stable. No apparent complication Disposition Disposition Home from [facility] post recovery, if no issues. F/u with Dr Lo. Full report to follow. ZANDRA BLAKE MD Nov 21, 2016 12:59
--- NOTE | 2016-11-21 13:02 | PDOC1 ---
History and Physical Date of Procedure Date of Admission 11/21/16 Procedure Procedure Slim Power Port removal Indication Indication 76 YO female with non small cell lung cancer---chemotx complete---port no longer needed. Past Medical History Past Medical History See Nursing Pre procedure PMH Past Surgical History Past Surgical History See Nursing Pre procedure PSH Current Medications Current Medications Current Medications Lidocaine/ Epinephrine (Xylocaine 1%-Epi 1:100,000) 20 ml STK-MED ONCE .ROUTE ; Start 11/21/16 at 11:56; Stop 11/21/16 at 11:57; Status DC Midazolam HCl (Versed) 2 mg STK-MED ONCE .ROUTE ; Start 11/21/16 at 12:05; Stop 11/21/16 at 12:06; Status DC Fentanyl Citrate (Fentanyl 2ml Vial) 100 mcg STK-MED ONCE .ROUTE ; Start at 12:05; Stop 11/21/16 at 12:06; Status DC Naloxone HCl (Narcan) 0.4 mg STK-MED ONCE .ROUTE ; Start 11/21/16 at 12:09; Stop 11/21/16 at 12:10; Status DC Flumazenil (Romazicon) 0.5 mg STK-MED ONCE IV ; Start 11/21/16 at 12:09; Stop at 12:10; Status DC Lidocaine/Sodium Bicarbonate (Buffered Lidocaine 1%) 20 ml 1X ONCE IJ ; Start 11/21/16 at 12:30; Stop 11/21/16 at 12:31; Status DC Midazolam HCl (Versed) 2 mg 1X ONCE IV Last administered on 11/21/16t 12:30; Start 11/21/16 at 12:30; Stop 11/21/16 at 12:31; Status DC Fentanyl Citrate (Fentanyl 2ml Vial) 100 mcg 1X ONCE IV Last administered on t 12:30; Start 11/21/16 at 12:30; Stop 11/21/16 at 12:31; Status DC Lidocaine/ Epinephrine 20 ml 20 ml 1X ONCE IJ ; Start 11/21/16 at 12:30; Stop 11/21/16 at 12:31; Status DC Heparin Sodium/ Sodium Chloride 500 ml @ As Directed STK-MED ONCE .ROUTE ; Start 11/21/16 at 12:30; Stop 11/21/16 at 12:31; Status DC Heparin Sodium/ Sodium Chloride 1,000 unit 1X ONCE IART Last administered on t 12:45; Start 11/21/16 at 12:45; Stop 11/21/16 at 12:47; Status DC Active Scripts Active Vitamin B-12 (Cyanocobalamin (Vitamin B-12)) 1,000 Mcg Tablet 1,000 Mcg PO DAILY Reported NITRO-DUR 0.6mg/hr (Nitroglycerin) 1 Each Patch.td24 1 Each TD DAILY Ferrous Sulfate 325 Mg Tablet 325 Mg PO DAILY Remeron (Mirtazapine) 15 Mg Tablet 1 Tab PO QHS Theophylline (Theophylline Anhydrous) 400 Mg Tablet.er 200 Mg PO TID Nexium Capsule (Esomeprazole Magnesium) 40 Mg Capsule.dr 1 Cap PO DAILY Levothyroxine Sodium 75 Mcg Tablet 1 Tab PO DAILY Hydromorphone Hcl 4 Mg Tablet 1 Tab PO QID PRN Hydrochlorothiazide Tablet (Hydrochlorothiazide) 50 Mg Tablet 25 Mg PO DAILY Gabapentin 100 Mg Capsule 100 Mg PO BID Amlodipine Besylate 5 Mg Tablet 5 Mg PO DAILY Allopurinol 100 Mg Tablet 1 Tab PO BID Allergies Allergies: Coded Allergies: aspirin (Verified Allergy, Intermediate, 05/08/16) codeine (Verified Allergy, Intermediate, 05/08/16) methocarbamol (Verified Allergy, Intermediate, 05/08/16) morphine (Verified Allergy, Intermediate, 05/08/16) Morphine Sulfate ER 15 mg oxycodone (Verified Allergy, Intermediate, 05/08/16) sulfamethoxazole (Verified Allergy, Intermediate, 05/08/16) tramadol (Verified Allergy, Intermediate, 05/08/16) trimethoprim (Verified Allergy, Intermediate, 05/08/16) Physical Exam Vital Signs Vital Signs Date Time Temp Pulse Resp B/P Pulse Ox O2 Delivery O2 Flow Rate FiO2 11/21/16 12:42 98 14 100 2.0 11/21/16 12:30 Nasal Cannula 11/21/16 08:56 97.4 115/69 97.4 Lungs: Clear to auscultation Heart: Regular rate Psych/Mental Status: Other (Mildly demented) Assessment Assessment NSC lung cancer---chemotx complete Problems: Plan Plan Slim Power Port removal. ZANDRA BLAKE MD Nov 21, 2016 13:01
--- NOTE | 2016-11-22 07:32 | RAD ---
Removal of Slim Power Port Indication: 76-year-old female with non-small cell lung cancer. Her chemotherapy is completed. Her indwelling slim power port is no longer required. Moderate sedation: 18 minutes moderate sedation was provided utilizing a total of 1.5 mg Versed and 75 mcg fentanyl, IV. The patient was appropriately monitored by a qualified independent observer throughout the course of the moderate sedation. Sterility: All elements of maximal sterile barrier technique, including the use of a cap, mask, sterile gown, sterile gloves, large sterile sheet, appropriate hand hygiene, and 2% chlorhexidine for cutaneous antisepsis (or acceptable alternative antiseptic per current guidelines) were utilized. Fluoroscopy time: 0.1 minutes Kerma-Area Product: 21.0 microGyM2 Procedure: Informed consent was obtained from the patient's . She was placed supine on the angiography table. Right chest was prepped and draped in the usual sterile fashion, utilizing all elements of maximal sterile barrier technique, as described above. Conscious sedation was provided with IV versed and fentanyl. Using aseptic technique and local anesthesia, a small horizontally oriented skin incision was made overlying body of the indwelling Slim Power Port. Subsequently, using a combination of blunt and sharp dissection, the Power Port body was freed from surrounding soft tissues. The port body and catheter were then easily removed as a single unit, using gentle traction. Hemostasis was achieved using manual pressure over right internal jugular vein. The chest incision was then closed with 4-0 Vicryl, steri-strips, and sterile dressing. Complete removal of the Slim Power Port was confirmed with pre- and post-procedure fluoroscopic spot images. Patient tolerated the procedure well, without apparent complication. Impression: Successful, uneventful removal of right IJ tunneled Slim Power Port, as described.
== END 2016-11-21 14:45 ==
LOC: INTRAD 08:09
PROVIDERS: ATTEND Internal Medicine Hematology & Oncology
DX: Z45.2 Encounter for adjustment and management of vascular access device (principal); C34.90 Malignant neoplasm of unspecified part of unspecified bronchus or lung; I25.10 Atherosclerotic heart disease of native coronary artery without angina pectoris; I10 Essential (primary) hypertension; E03.9 Hypothyroidism, unspecified; Z87.891 Personal history of nicotine dependence; Z92.21 Personal history of antineoplastic chemotherapy
CPT/HCPCS: 36415; 36590; 85027; 85610; J2250; J3010

== ENCOUNTER → 2017-03-01 | Outpatient (CLI) | payer MEDICARE, BC ==
[2016-11-21 14:05] VITALS: BP 104/65
[~2017-03-01] MED LIST changes: +DOCU-27 PO; +FERR-26 PO
--- NOTE | 2017-03-01 10:29 | RAD ---
Indication follow-up lung malignancy. Noncontrast images through the chest were obtained. Comparison is made to an examination 4 months earlier. An acute or significant finding in the visualized upper abdomen is not seen. Postoperative changes are noted associated with the spine. Significant hilar or mediastinal adenopathy is not seen. There is a small right pleural effusion. It is similar to slightly larger than on the previous exam. Known underlying emphysematous changes are reproduced. There is marked scar or atelectasis in the right upper lobe which is similar to the previous exam. There is now new volume loss in the superior segment of the right lower lobe. This may reflect atelectasis or scar, on a postradiation basis. Pneumonia is not excluded. It does not have an appearance suggestive of neoplastic disease although this entity cannot be entirely excluded. Underlying emphysematous changes are noted. A new finding in the left lung is not seen. Relative to the previous exam there has been partial collapse of a lower thoracic vertebral body segment. There are mixed sclerotic and lytic changes associated with the partially collapsed body. The etiology is unclear. Metastatic disease is not entirely excluded. There are several healing left rib fractures which do not have a pathologic appearance IMPRESSION: Unchanged volume loss in the right upper lobe. New volume loss in the right lower lobe may be on a post radiation basis. Superimposed pneumonia is not entirely excluded. The appearance is not typical of recurrent tumor. Interval collapse of a lower thoracic vertebral body segment with mixed sclerotic and lytic changes associated with the collapsed body.. The etiology is unclear. Metastatic disease is not excluded. Healing left rib fractures PQRS Compliance Statement: One or more of the following individualized dose reduction techniques were utilized for this examination: 1. Automated exposure control 2. Adjustment of the mA and/or kV according to patient size 3. Use of iterative reconstruction technique
== END | disposition home or self-care (01) ==
LOC: CT 09:34
PROVIDERS: ATTEND Radiology Radiation Oncology
DX: C34.90 Malignant neoplasm of unspecified part of unspecified bronchus or lung (principal)
CPT/HCPCS: 71250

== ENCOUNTER → 2017-05-30 | Outpatient (CLI) | payer MEDICARE ==
[2016-11-21 14:05] VITALS: BP 104/65
[~2017-05-30] MED LIST changes: +CHOL2000 PO; +DOCU-109 PO; -DOCU-27 PO; +POTA10TA12 PO
--- NOTE | 2017-05-30 14:21 | RAD ---
CT chest without contrast 05/30/2017 Clinical indication: Stage III right lung carcinoma. Comparison: CT chest 03/01/2017. Technique: Multiple CT images of the chest obtained without contrast according to standard protocol. Coronal and sagittal reformations were obtained. PQRS Compliance Statement: One or more of the following individualized dose reduction techniques were utilized for this examination: 1. Automated exposure control 2. Adjustment of the mA and/or kV according to patient size 3. Use of iterative reconstruction technique Findings: Chest: Heart size is normal without significant pericardial effusion. Three-vessel coronary artery calcifications. Thoracic aorta is normal in caliber with heavy calcified atheromatous disease including the origin of the great vessels which are completely evaluated without intravenous contrast. No axillary lymphadenopathy. There are multiple mediastinal and right hilar calcified lymph nodes. There is stable right hilar and right upper lobe consolidation and adjacent bronchiectasis. There are few scattered sub-5 mm noncalcified pulmonary nodules bilaterally with service center representative left upper lobe nodule measuring 4 mm (series 2/image 18), previously 4 mm. Moderate centrilobular pulmonary emphysema. Stable calcified granuloma in the right lower lobe. There is a stable small right pleural effusion. No left pleural effusion or pneumothorax. Limited images of the upper abdomen: Heavy calcification of the transabdominal aorta. There is diffuse osteopenia throughout the visualized osseous structures. There is patchy sclerosis throughout the T10 vertebral body with stable moderate superior compression deformity and no significant bony retropulsion. There is multilevel upper lumbar spondylosis with partial visualization of posterior spinal fixation hardware. Right convexity lumbar scoliosis. Impression: 1. Stable right suprahilar consolidation and bronchiectasis, likely representing posttherapeutic fibrosis, however local recurrent tumor cannot be excluded. 2. Unchanged sub-5 mm bilateral pulmonary nodules. 3. Stable patchy sclerosis of T10 and moderate compression deformity, metastatic disease cannot be excluded.
== END | disposition home or self-care (01) ==
LOC: CT 08:00
PROVIDERS: ATTEND Radiology Radiation Oncology
DX: C34.91 Malignant neoplasm of unspecified part of right bronchus or lung (principal); J47.9 Bronchiectasis, uncomplicated; M47.896 Other spondylosis, lumbar region
CPT/HCPCS: 71250

== ENCOUNTER → 2017-09-27 | Outpatient (CLI) | payer MEDICARE ==
[2017-08-20 11:00] VITALS: BP 99/59
[~2017-09-27] MED LIST changes: +METO-247 PO; -METO100T11 PO
--- NOTE | 2017-09-27 13:06 | RAD ---
FDG tumor localization scan, PET/CT, 09/27/2017: History: Restaging lung cancer Following IV injection of 15.4 mCi of 18 F-FDG, imaging was performed from the skull base to the proximal thighs. The noncontrast CT component was performed for attenuation correction and anatomic localization purposes rather than for primary diagnosis. The patient's blood glucose level at the time of injection was 100 MG/DL. Comparison is made to a study from 05/04/2016. The previously seen hypermetabolic mass in the right upper lobe has decreased in size. There is now volume loss in the right upper lobe with underlying bronchiectasis and parahilar opacities, also involving the right lower and middle lobes. Much of this process probably represents postradiation change and fibrosis. There is increased FDG uptake, particularly within the lateral aspect of this process with a maximum SUV is 4.1. Other areas within this process demonstrate mildly increased FDG uptake with an SUV of approximately 2.0. The maximum SUV of this mass prior to treatment was 7.3. This process cannot be from the superior aspect of the right hilum. No separate focus of avid FDG uptake is seen in the mediastinum. Physiologic FDG activity is seen in the neck. Increased muscular activity in both arms is presumably physiologic in nature. Normal GI tract and urinary tract activity is present in the abdomen and pelvis. No hypermetabolic abdominal or pelvic abnormality is seen. No significant abnormal osseous uptake is seen at the level the patient's known T10 vertebral compression fracture. There is abnormal FDG uptake at the level the patient's known superior and inferior pubic rami fractures. There is moderately increased activity at the left sacroiliac joint level most likely posttraumatic and/or arthritic. Incidental CT findings include the presence of a small right pleural effusion. Emphysematous changes are present in the lungs. There is colonic diverticulosis. Bilateral renal cysts are present. Extensive postsurgical and degenerative changes are evident in the lumbar spine. IMPRESSION: 1. Considerable interval decrease in size of the right upper lobe pulmonary mass with right upper lobe volume loss, bronchiectasis and scarring. Areas of mild residual abnormal FDG uptake are compatible with a combination of postradiation change and probably residual tumor. There may be a component of inflammation/infection related to the volume loss and bronchiectasis. 2. Small right pleural effusion. 3. No FDG PET evidence of distant metastatic disease.
== END | disposition home or self-care (01) ==
LOC: PETSC 08:55
PROVIDERS: ATTEND Radiology Radiation Oncology
DX: C34.90 Malignant neoplasm of unspecified part of unspecified bronchus or lung (principal); J47.9 Bronchiectasis, uncomplicated; J90 Pleural effusion, not elsewhere classified; N28.1 Cyst of kidney, acquired; Z98.890 Other specified postprocedural states
CPT/HCPCS: 78815; A9552

== ENCOUNTER → 2018-02-14 | Outpatient (CLI) | payer MEDICARE | END | disposition home or self-care (01) | LOC: CT 09:25 | DX: C34.11 Malignant neoplasm of upper lobe, right bronchus or lung (principal); J47.0 Bronchiectasis with acute lower respiratory infection; J90 Pleural effusion, not elsewhere classified; I12.9 Hypertensive chronic kidney disease with stage 1 through stage 4 chronic kidney disease, or unspecified chronic kidney disease; N18.3 Chronic kidney disease, stage 3 (moderate); E03.9 Hypothyroidism, unspecified | CPT/HCPCS: 71250 ==

== ENCOUNTER → 2018-07-11 | Outpatient (CLI) | payer MEDICARE ==
[2017-08-20 11:00] VITALS: BP 99/59
[~2018-07-11] MED LIST changes: -AMLO5TAB2 PO; +AMLO5TAB7 PO; -FERR-26 PO; +FERR325T14 PO
--- NOTE | 2018-07-11 13:57 | RAD ---
CT of the chest without contrast 07/11/2018 INDICATION: History of lung cancer. COMPARISON STUDY: CT of the chest February 14, 2018. TECHNIQUE: Multidetector CT imaging of the chest was performed without the administration of contrast. FINDINGS: Evaluation of the mediastinum is limited without IV contrast. Heart size is normal. No pericardial effusion is seen. Diffuse coronary calcification is identified. Calcified lymphadenopathy in the right hilum is similar to comparison study. No new pathologically enlarged mediastinal adenopathy is identified On upper lung consolidation with multifocal central bronchiectasis is again noted. The degree of lung consolidation is mildly increased in the apical part of the consolidation. Associated pleural thickening is similar. There is a small right pleural effusion which has mildly increased in the interim. Diffuse emphysematous changes are similar no other new masses or consolidations are identified. No acute osseous changes are identified in the interim. IMPRESSION: 1.Right apical lung consolidation, pleural thickening and bronchiectasis is again seen. Focal consolidation within the right apical component appears slightly increased. Residual tumor not excluded. Continued surveillance recommended. 2. Minimal increase in small right pleural effusion 3. Otherwise stable exam CT DOSING PQRS STATEMENT: One or more of the following individualized dose reduction techniques were utilized for this examination: 1. Automated exposure control 2. Adjustment of the mA and/or kV according to patient size 3. Use of iterative reconstruction technique Electronically signed by: Da Kang MD (07/11/2018 1:53 PM) [id number]
== END | disposition home or self-care (01) ==
LOC: CT 14:22
PROVIDERS: ATTEND Radiology Radiation Oncology
DX: J18.1 Lobar pneumonia, unspecified organism (principal); J92.9 Pleural plaque without asbestos; J47.9 Bronchiectasis, uncomplicated; J90 Pleural effusion, not elsewhere classified; R59.1 Generalized enlarged lymph nodes; E55.9 Vitamin D deficiency, unspecified; M10.9 Gout, unspecified; I12.9 Hypertensive chronic kidney disease with stage 1 through stage 4 chronic kidney disease, or unspecified chronic kidney disease; N18.3 Chronic kidney disease, stage 3 (moderate); J44.9 Chronic obstructive pulmonary disease, unspecified; I25.10 Atherosclerotic heart disease of native coronary artery without angina pectoris; K21.9 Gastro-esophageal reflux disease without esophagitis; Z87.891 Personal history of nicotine dependence; Z85.118 Personal history of other malignant neoplasm of bronchus and lung; Z92.3 Personal history of irradiation; Z92.21 Personal history of antineoplastic chemotherapy; Z90.49 Acquired absence of other specified parts of digestive tract; Z90.710 Acquired absence of both cervix and uterus; Z88.1 Allergy status to other antibiotic agents; Z88.5 Allergy status to narcotic agent; Z88.6 Allergy status to analgesic agent; Z88.8 Allergy status to other drugs, medicaments and biological substances
CPT/HCPCS: 71250

== ENCOUNTER → 2019-02-18 | Outpatient (CLI) | payer MEDICARE ==
[2017-08-20 11:00] VITALS: BP 99/59
[~2019-02-18] MED LIST changes: +AMLO5TAB10 PO; -AMLO5TAB7 PO
--- NOTE | 2019-02-18 16:01 | RAD ---
Examination: CT CHEST WO CONTRAST History: RIGHT UPPER LOBE CA
PREVIOUS
Comparison/Correlation: 07/11/2018 CT chest without contrast, 02/14/2018 CT chest without contrast Findings: Axial images of the chest were obtained without contrast. Sagittal and coronal reformatted images were provided. Emphysematous involvement of the lung chávez is centrilobular in distribution. Anterior right apical scarring and pleural thickening is noted. Bronchiectatic findings are noted within this distribution. Dystrophic calcifications are evident as well. This process is overall decreased in the interval. No enlarged thoracic lymph nodes. Previously identified loculated pleural collection at the posterior right upper thorax has nearly completely resolved. Right posterior basilar loculated pleural collection is similar to previous exam. Calcific involvement of the aorta noted. Postoperative findings of the lumbar spine are seen on the topogram. Impression: Decreased anterior right apical soft tissue density process likely representing underlying scarring and atelectasis with bronchiectasis. Near complete resolution of previously seen loculated right upper thoracic pleural collection. No change in right basilar loculated collection. PQRS Compliance Statement: One or more of the following individualized dose reduction techniques were utilized for this examination: 1. Automated exposure control 2. Adjustment of the mA and/or kV according to patient size 3. Use of iterative reconstruction technique Electronically signed by: Torres Cody MD (02/18/2019 3:58 PM) [facility]
== END | disposition home or self-care (01) ==
LOC: CT 13:49
PROVIDERS: ATTEND Radiology Radiation Oncology
DX: C34.11 Malignant neoplasm of upper lobe, right bronchus or lung (principal); J43.2 Centrilobular emphysema; J47.9 Bronchiectasis, uncomplicated; J98.11 Atelectasis; J98.4 Other disorders of lung
CPT/HCPCS: 71250

== ENCOUNTER 2019-06-30 17:50 | Emergency (ER) | payer MEDICARE ==
[~2019-06-30] VITALS: Ht 147.3 cm; Wt 45.4 kg
[~2019-06-30 17:50] MED LIST changes: +ATOR20TA58 PO; +CLOP75TA PO; +CYAN-25 PO; -CYAN10005 PO; +ISOS30TA4 PO; +METO-239 PO; +NITR0.4T22 SL; +PROC5TAB14 PO; +VITA0.4T17 PO
[2019-06-30] MEDS ORDERED: METOCLOPRAMIDE HCL 10 MG/2 ML VIAL. IV ONE (18:30)
[2019-06-30] MEDS ORDERED: KETOROLAC 15 MG/ML VIAL. IV ONE ×2 (18:30)
[2019-06-30] MEDS ORDERED: cloNIDine HCL 0.1 MG TABLET PO ONE (18:30)
[2019-06-30] MEDS ORDERED: IV NORMAL SALINE 1000ML BAG 1,000 ML IV ONE (18:30)
[2019-06-30] MEDS ORDERED: diphenhydrAMINE 50 MG/ML VIAL IVP ONE (18:30)
[2019-06-30 18:47] LABS: BILIRUBIN,URINE NEGATIVE (NEG); CLARITY,URINE CLEAR; COLOR,URINE YELLOW; NITRITE,URINE NEGATIVE (NEG); PH,URINE 5.5; PROTEIN,URINE 100 mg/dL (NEG-TRACE); UROBILINOGEN,URINE 0.2 mg/dL (0.2 mg/dL)
[2019-06-30 18:48] LABS: BASO # 0.1 x10^3/uL (0.0-0.2); BASO % 1 % (0-3); EOS # 0.2 x10^3/uL (0.0-0.7); EOS % 3 % (0-3); HEMOGLOBIN 13.3 g/dL (12.0-15.5); LYMPH # 1.3 x10^3/uL (1.0-4.8); LYMPH % 17 % (24-48); MEAN CORPUSCULAR HEMOGLOBIN 31 pg (25-35); MEAN CORPUSCULAR HGB CONC 33 g/dL (31-37); MEAN CORPUSCULAR VOLUME 94 fL (79-100); MONO # 0.6 x10^3/uL (0.0-1.1); MONO % 8 % (0-9); NEUT # 5.7 x10^3/uL (1.8-7.7); NEUT % 72 % (31-73); PLATELET COUNT 231 x10^3/uL (140-400); RED BLOOD COUNT 4.26 x10^6/uL (3.50-5.40); RED CELL DISTRIBUTION WIDTH 15.1 % (11.5-14.5); WHITE BLOOD COUNT 7.9 x10^3/uL (4.0-11.0)
[2019-06-30 18:55] LABS: HYALINE CASTS, URINE OCCASIONAL /HPF; SQUAMOUS EPITHELIAL CELL,UR FEW /LPF
[2019-06-30 18:56] LABS: BACTERIA,URINE 0 /HPF (0-FEW)
--- NOTE | 2019-06-30 18:57 | PHYS DOC ---
Past Medical History Past Medical History: Cancer, GERD, Hypertension, Hypothyroid, Other Additional Past Medical Histor: GOUT,LUNG CANCER Past Surgical History: Appendectomy, Hysterectomy, Other Additional Past Surgical Histo: RIGHT PORT PLACEMENT AND REMOVAL, BACK, NECK Alcohol Use: None Drug Use: None Adult General Chief Complaint Chief Complaint: HYPERTENSION HPI HPI Patient is a 78 year old female with hx of ACS and COPD who presents with HTN and PATEL. Pt reports having headache started last night and she took some iburpofen which relieved the PATEL. However, the PATEL returns today and hear BP has been in 180s systolic at home. In the ED, her BP was in the 200s range. Her PATEL is frontal b/l, constant and she rates it as 9.5/10 (10=worst). Pt reports having a stent was placed in March and she is on plavix. She also endorses some SOB, increase in cough and chest tightness. Denies any N/V, F/C, visual changes. Review of Systems Review of Systems Constitutional: Denies fever or chills Eyes: Denies redness or eye pain HENT: Denies nasal congestion or sore throat Respiratory: Denies cough. Positive shortness of breath Cardiovascular: Denies palpitations. Positive chest tightness GI: Denies abdominal pain, nausea, or vomiting : Denies dysuria or hematuria Musculoskeletal: Denies back pain or joint pain Integument: Denies rash or skin lesions Neurologic: Positive headache. No focal weakness or sensory changes Complete systems were reviewed and found to be within normal limits, except as documented in this note. Current Medications Current Medications Current Medications Medications (Trade) Dose Ordered Sig/Morro Start Time Stop Time Status Last Admin Dose Admin Clonidine HCl (Catapres) 0.1 mg 1X ONCE 06/30/19 18:30 06/30/19 18:31 DC 06/30/19 18:56 0.1 MG Diphenhydramine HCl (Benadryl) 25 mg 1X ONCE 06/30/19 18:30 06/30/19 18:31 DC 06/30/19 18:56 25 MG Ketorolac Tromethamine (Toradol 15mg Vial) 10 mg 1X ONCE 06/30/19 18:30 06/30/19 18:33 DC 06/30/19 18:56 10 MG Magnesium Chloride (Mag Delay) 64 mg 1X ONCE 06/30/19 19:45 06/30/19 19:51 DC 06/30/19 20:00 64 MG Metoclopramide HCl (Reglan Vial) 10 mg 1X ONCE 06/30/19 18:30 06/30/19 18:31 DC 06/30/19 18:56 10 MG Sodium Chloride 1,000 ml @ 1,000 mls/hr 1X ONCE 06/30/19 18:30 06/30/19 19:29 DC 06/30/19 18:56 1,000 MLS/HR Allergies Allergies Allergies Coded Allergies Type Severity Reaction Last Updated Verified aspirin Allergy Intermediate 05/08/16 Yes codeine Allergy Intermediate 05/08/16 Yes methocarbamol Allergy Intermediate 05/08/16 Yes morphine Allergy Intermediate 05/08/16 Yes oxycodone Allergy Intermediate 05/08/16 Yes sulfamethoxazole Allergy Intermediate 05/08/16 Yes tramadol Allergy Intermediate 05/08/16 Yes trimethoprim Allergy Intermediate 05/08/16 Yes Physical Exam Physical Exam Constitutional: Well developed, well nourished, no acute distress, non-toxic appearance HENT: Normocephalic, atraumatic, oropharynx moist Eyes: PERRL, EOMI, conjunctiva normal, no discharge Neck: Normal range of motion, no tenderness, supple Cardiovascular: Heart rate normal, regular rhythm Lungs & Thorax: Decrease in breath sound bilaterally, no wheezing Abdomen: Soft, no tenderness Skin: Warm, dry, no erythema, no rash Back: No tenderness, no CVA tenderness Extremities: No tenderness, ROM intact, no edema Neurologic: Alert and oriented X 3, normal motor function, normal sensory function, no focal deficits noted Psychologic: Affect normal, judgement normal, mood normal Current Patient Data Vital Signs Vital Signs Date Time Temp Pulse Resp B/P (MAP) Pulse Ox O2 Delivery O2 Flow Rate FiO2 06/30/19 19:46 77 18 99 06/30/19 18:56 187/89 06/30/19 18:09 98.1 Room Air 98.1 Lab Values Laboratory Tests Test 06/30/19 18:30 06/30/19 18:35 Urine Collection Type Unknown Urine Color Yellow Urine Clarity Clear Urine pH 5.5 Urine Specific [place] 1.015 Urine Protein 100 mg/dL (NEG-TRACE) Urine Glucose (UA) Negative mg/dL (NEG) Urine Ketones (Stick) Negative mg/dL (NEG) Urine Blood Trace (NEG) Urine Nitrite Negative (NEG) Urine Bilirubin Negative (NEG) Urine Urobilinogen Dipstick 0.2 mg/dL (0.2 mg/dL) Urine Leukocyte Esterase Small (NEG) Urine RBC 1-2 /HPF (0-2) Urine WBC 11-20 /HPF (0-4) Urine Squamous Epithelial Cells Few /LPF Urine Transitional Epithelial Cells Occ /LPF Urine Bacteria 0 /HPF (0-FEW) Urine Hyaline Casts Occasional /HPF Urine Mucus Slight /LPF White Blood Count 7.9 x10^3/uL (4.0-11.0) Red Blood Count 4.26 x10^6/uL (3.50-5.40) Hemoglobin 13.3 g/dL (12.0-15.5) Hematocrit 40.0 % (36.0-47.0) Mean Corpuscular Volume 94 fL (79-100) Mean Corpuscular Hemoglobin 31 pg (25-35) Mean Corpuscular Hemoglobin Concent 33 g/dL (31-37) Red Cell Distribution Width 15.1 % (11.5-14.5) H Platelet Count 231 x10^3/uL (140-400) Neutrophils (%) (Auto) 72 % (31-73) Lymphocytes (%) (Auto) 17 % (24-48) L Monocytes (%) (Auto) 8 % (0-9) Eosinophils (%) (Auto) 3 % (0-3) Basophils (%) (Auto) 1 % (0-3) Neutrophils # (Auto) 5.7 x10^3/uL (1.8-7.7) Lymphocytes # (Auto) 1.3 x10^3/uL (1.0-4.8) Monocytes # (Auto) 0.6 x10^3/uL (0.0-1.1) Eosinophils # (Auto) 0.2 x10^3/uL (0.0-0.7) Basophils # (Auto) 0.1 x10^3/uL (0.0-0.2) Activated Partial Thromboplast Time 34 SEC (24-38) Sodium Level 147 mmol/L (136-145) H Potassium Level 4.2 mmol/L (3.5-5.1) Chloride Level 109 mmol/L (98-107) H Carbon Dioxide Level 27 mmol/L (21-32) Anion Gap 11 (6-14) Blood Urea Nitrogen 18 mg/dL (7-20) Creatinine 1.1 mg/dL (0.6-1.0) H Estimated GFR (Cockcroft-Gault) 47.8 BUN/Creatinine Ratio 16 (6-20) Glucose Level 97 mg/dL (70-99) Calcium Level 8.8 mg/dL (8.5-10.1) Magnesium Level 1.6 mg/dL (1.8-2.4) L Total Bilirubin 0.2 mg/dL (0.2-1.0) Aspartate Amino Transferase (AST) 25 U/L (15-37) Alanine Aminotransferase (ALT) 13 U/L (14-59) L Alkaline Phosphatase 80 U/L (46-116) Creatine Kinase 76 U/L (26-192) Creatine Kinase MB (Mass) 1.2 ng/mL (0.0-3.6) Creatine Kinase MB Relative Index 1.6 % (0-4) Troponin I Quantitative < 0.017 ng/mL (0.000-0.055) Total Protein 7.7 g/dL (6.4-8.2) Albumin 3.4 g/dL (3.4-5.0) Albumin/Globulin Ratio 0.8 (1.0-1.7) L Lipase 136 U/L (73-393) Laboratory Tests 06/30/19 18:35 Laboratory Tests 06/30/19 18:35 EKG EKG 06/30/2019 18:24 sinus rhythm rate of 89, normal axis, wandering baseline, no ST elevation Radiology/Procedures Radiology/Procedures [] Course & Med Decision Making Course & Med Decision Making Pertinent Labs and Imaging studies reviewed. (See chart for details) 79 yo female with hx of lung cancer and PCI sp stenting in March presents with HTN and PATEL started last night. DDX including HTN emergency vs Intracranial hemor rhage vs frontal PATEL vs others. Basic labs showed low Mg (1.1) which were replaced in the ED. Her Cr was 1.1 which is pt's baseline when compared to previous visit. CXR and CT scan of head showed no acute process. Pt was given Clonidine in the ED which decreased her bp and Toradol and Reglan for her PATEL. Patient is stable for discharge with outpatient follow-up with PCP. Discussed findings and plan with patient and family, who acknowledge understanding and agreement. Dragraghavendra Disclaimer Dragon Disclaimer This electronic medical record was generated, in whole or in part, using a voice recognition dictation system. Departure Departure Impression: Primary Impression: Headache Additional Impressions: Hypertension Hypomagnesemia Disposition: 01 HOME, SELF-CARE Condition: IMPROVED Referrals: MONICA PETERSON (PCP) Patient Instructions: Headache, FAQs, Hypertension, [id number], Hypomagnesemia Scripts Clonidine Hcl (CLONIDINE HCL) 0.1 Mg Tablet 0.1 MG PO BID PRN for ELEVATED BP, SEE COMMENTS, #14 TAB Take as needed for blood pressures greater than 185 systolic (top number) and/or 105 diastolic (bottom number). Prov: LIBERTY CRUZ DO 06/30/19 Butalb/Acetaminophen/Caffeine ([id number] 50-325-40) 1 Each Tablet 1 EACH PO Q6HRS PRN for HEADACHE, #10 TAB Prov: LIBERTY CRUZ DO 06/30/19 Problem Qualifiers Primary Impression: Headache Headache type: unspecified Headache chronicity pattern: acute headache Intractability: not intractable Qualified Codes: R51 - Headache Additional Impressions: Hypertension Hypertension type: unspecified Qualified Codes: I10 - Essential (primary) hypertension LIBERTY CRUZ DO Jun 30, 2019 18:57
[2019-06-30 18:58] LABS: CALCIUM 8.8 mg/dL (8.5-10.1); CREATININE 1.1 mg/dL (0.6-1.0); GFR 47.8; POTASSIUM 4.2 mmol/L (3.5-5.1)
[2019-06-30 19:05] LABS: ALBUMIN 3.4 g/dL (3.4-5.0); ALBUMIN/GLOBULIN RATIO 0.8 (1.0-1.7); MAGNESIUM 1.6 mg/dL (1.8-2.4); TOTAL BILIRUBIN 0.2 mg/dL (0.2-1.0); TOTAL PROTEIN 7.7 g/dL (6.4-8.2)
--- NOTE | 2019-06-30 19:36 | RAD ---
Exam: CT head without contrast. Date: 06/30/2019, comparison: One view chest 04/23/2019 Indication: Hypertension, headache Technique: 5 mm axial images of the head were obtained without contrast. Findings: There is low attenuation within the periventricular white matter consistent with chronic small vessel ischemic disease. Prominence of cortical sulci and ventricular system is noted. There is cerebral atrophy. Midline structures are central. No hydrocephalus. No suspicious cerebral edema. No mass lesion or midline shift is seen. No extra axial fluid collection, intracranial hemorrhage or acute ischemia is detected. The visualized paranasal sinuses and mastoid air cells are clear. The osseous calvarium appears unremarkable. Impression: 1.Chronic small vessel ischemic disease and cerebral atrophy. 2.No acute findings. PQRS Compliance Statement: One or more of the following individualized dose reduction techniques were utilized for this examination: 1. Automated exposure control 2. Adjustment of the mA and/or kV according to patient size 3. Use of iterative reconstruction technique End impression Single view chest findings: Parenchymal scarring in the right apex with masslike opacity in the right suprahilar region appears unchanged since the chest x-ray of April 23, 2019 is perhaps chronic. The lungs are aerated. No pleural effusion or pneumothorax seen. Postoperative changes in the right proximal humerus. Pression: Stable one view chest. No acute abnormality seen. Electronically signed by: Nancy Sims MD (06/30/2019 7:33 PM) [id number]
[2019-06-30] MEDS ORDERED: MAGNESIUM CHLORIDE ER 64 MG TABLET.ER PO ONE (19:45)
[2019-06-30 19:46] VITALS: BP 180/84
[2019-06-30] MEDS ORDERED: BUTA1TAB23 PO (19:59)
[2019-06-30] MEDS ORDERED: CLON0.1T PO (19:59)
--- NOTE | 2019-07-01 06:38 | EKG ---
[facility] [address] [place] [address] Test Date: 2019-06-30 Test Time: 18:24:04 Pat Name: JIMMIE CHAVARRIA Department: Room: Gender: F Electrotype Finisher: MAGDA : 1940 Requested By: LIBERTY CRUZ Order Number: [id number] Reading MD: Measurements Intervals [place] Rate: 89 P: 49 LA: 126 QRS: 45 QRSD: 78 T: 69 QT: 324 QTc: 400 Interpretive Statements SINUS RHYTHM NORMAL ECG RI6.01 No previous ECG available for comparison
== END 2019-06-30 20:13 | disposition home or self-care (01) ==
LOC: ER 17:50
DX: R51 Headache (principal); I10 Essential (primary) hypertension; E83.42 Hypomagnesemia; K21.9 Gastro-esophageal reflux disease without esophagitis; E03.9 Hypothyroidism, unspecified; Z90.89 Acquired absence of other organs; Z90.710 Acquired absence of both cervix and uterus; Z88.6 Allergy status to analgesic agent; Z88.5 Allergy status to narcotic agent; Z88.2 Allergy status to sulfonamides; Z88.1 Allergy status to other antibiotic agents; Z88.8 Allergy status to other drugs, medicaments and biological substances
CPT/HCPCS: 36415; 70450; 71045; 80053; 81001; 82553; 83690; 83735; 84484; 85025; 85730; 87086; 93005; 96374; 96375; 99285; J1200; J1885; J2765; J7030

== ENCOUNTER → 2019-07-24 | Outpatient (CLI) | payer MEDICARE ==
[2019-06-30 19:46] VITALS: BP 180/84
[~2019-07-24] MED LIST changes: +BUTA1TAB23 PO; +CLON0.1T PO; -NITR0.4T SL; +NITR0.4T24 SL; -NITR1PAT11 TD; +NITR1PAT74 TD
--- NOTE | 2019-07-25 13:54 | CARD ---
MR#: [id number] Date of Study: 07/24/2019 Ordering Physician: ARGELIA BENSON, Referring Physician: ARGELIA BENSON, Tech: APPROVED REPORT EXAM: Two-dimensional and M-mode echocardiogram with Doppler and color Doppler. INDICATION Cardiac Disease: CAD RISK FACTORS Previous smoker 3 years ago 2D DIMENSIONS Left Atrium(2D)2.1 (1.6-4.0cm)IVSd0.8 (0.7-1.1cm) Aortic Root(2D)2.8 (2.0-3.7cm)LVDd3.3 (3.9-5.9cm) LVOT Diameter1.9 (1.8-2.4cm)PWd0.7 (0.7-1.1cm) LVDs2.0 (2.5-4.0cm)FS (%) 40.3 % SV32.3 mlLVEF(%)72.2 (>50%) Aortic Valve AoV Peak Jose.97.8cm/sAoV VTI17.5cm AO Peak GR.3.8mmHgLVOT Peak Jose.77.9cm/s LVOT VTI 14.12cmAO Mean GR.2mmHg DOUG (VMAX)1.73bw6YPQ (VTI)2.21cm2 AI P 1/2 [id number] Mitral Valve MV E Crdwrisr24.1cm/sMV DECEL [id number] MV A Vunzlcvt89.0cm/sMV [id number] E/A Ratio0.8MVA (PHT)3.64cm2 TDI E/Lateral E'10.1E/Medial E'10.7 Pulmonary Valve PV Peak Hrcpgvga81.2cm/sPV Peak Grad.3mmHg Pulmonary Vein S1 Ckcibzlw65.8cm/sD2 Kdhjqwvp98.1cm/s PVa [id number] LEFT VENTRICLE The left ventricle is normal size. There is normal left ventricular wall thickness. The left ventricu lar systolic function is normal. The Ejection Fraction is 55-60%. There is normal LV segmental wall m otion. Transmitral Doppler flow pattern is Grade I-abnormal relaxation pattern. RIGHT VENTRICLE The right ventricle is normal size. There is normal right ventricular wall thickness. The right ventr icular systolic function is normal. ATRIA The left atrium size is normal. The right atrium size is normal. The interatrial septum is intact wit h no evidence for an atrial septal defect or patent foramen ovale as noted on 2-D or Doppler imaging. AORTIC VALVE The aortic valve is thickened but opens well. Doppler and Color Flow revealed trace aortic regurgitat ion. There is no significant aortic valvular stenosis. MITRAL VALVE The mitral valve is thickened but opens well. There is no evidence of mitral valve prolapse. There is no mitral valve stenosis. Doppler and Color Flow revealed no mitral valve regurgitation noted. TRICUSPID VALVE The tricuspid valve is normal in structure and function. Doppler and Color Flow revealed no tricuspid valve regurgitation noted. There is no tricuspid valve stenosis. PULMONIC VALVE The pulmonic valve is not well visualized. Doppler and Color Flow revealed no pulmonic valvular regur gitation. GREAT VESSELS The aortic root is normal in size. The IVC is normal in size and collapses >50% with inspiration. PERICARDIAL EFFUSION There is no evidence of significant pericardial effusion. Critical Notification Critical Value: No <Conclusion> The left ventricular systolic function is normal. The Ejection Fraction is 55-60%. There is normal LV segmental wall motion. Transmitral Doppler flow pattern is Grade I-abnormal relaxation pattern. There is no evidence of significant pericardial effusion. Signed by : Argelia Benson, Electronically Approved : 07/24/2019 14:02:48
== END | disposition home or self-care (01) ==
LOC: ECHO 09:51
PROVIDERS: ATTEND Internal Medicine Cardiovascular Disease
DX: I25.10 Atherosclerotic heart disease of native coronary artery without angina pectoris (principal)
CPT/HCPCS: 93306

== ENCOUNTER → 2019-08-27 | Outpatient (CLI) | payer MEDICARE ==
--- NOTE | 2019-08-27 11:20 | RAD ---
CT CHEST WO CONTRAST Indication: Lung cancer, posttreatment Technique: Noncontrast CT imaging was performed of the chest, multiplanar reconstruction images submitted. One or more of the following individualized dose reduction techniques were utilized for this examination: 1. Automated exposure control 2. Adjustment of the mA and/or kV according to patient size 3. Use of iterative reconstruction technique. Comparison: February 18, 2019 Findings: There is persistent abnormal right apical density with associated bronchiectasis and some adjacent calcifications overall unchanged in appearance. Largest area of density measures about 6.3 cm transverse by 7.9 cm AP by about 7.2 cm CC. There is similar appearance of density extending along the right mediastinal border along the right trachea and right perihilar region. There is again emphysema. Small 0.3 cm superior left lower lobe nodule image 14 series 2 is unchanged. Right lower lobe nodule near the fissure image 28 series 2 about 0.7 cm is similar. There is new focus of more confluent density of the inferolateral right hemithorax abutting the pleural surface images 33-37 series 2 about 1.8 cm AP by 1.2 cm transverse by about 2 cm CC. Small quantity of right pleural fluid more localized near the lung base is similar. There is no new left pleural fluid. There is no pneumothorax. There is coronary calcification. Thoracic aortic caliber is within normal limits, scattered plaque. There is calcified plaque near the origin of the superior mesenteric artery with likely degree of stenosis, likely mild narrowing near the origin of the celiac artery. There is bone demineralization. There has been development of more central compression deformity of T5, similar superior height loss T2. IMPRESSION: 1. Comparing with the January 2019 exam, there is new focus of density abutting the pleural surface of the inferolateral right hemithorax. This could be due to infiltrate/atelectasis although new mass difficult to exclude in this region for which short-term follow-up in 3 months advised. Abnormal right apical density extending to the right hilar and mediastinal region is similar in appearance. Small right pleural effusion localized near the lung base is similar. 2. There is emphysema. 3. There is coronary calcification. 4. There has been interval development of T5 compression deformity. There is bone demineralization. Electronically signed by: Narinder Brand MD (08/27/2019 11:17 AM) [id number]
== END | disposition home or self-care (01) ==
LOC: CT 10:41
PROVIDERS: ATTEND Radiology Radiation Oncology
DX: Z08 Encounter for follow-up examination after completed treatment for malignant neoplasm (principal); J43.9 Emphysema, unspecified; J90 Pleural effusion, not elsewhere classified; I25.10 Atherosclerotic heart disease of native coronary artery without angina pectoris; M81.8 Other osteoporosis without current pathological fracture; Z85.118 Personal history of other malignant neoplasm of bronchus and lung
CPT/HCPCS: 71250

== ENCOUNTER → 2019-11-13 | Outpatient (CLI) | payer MEDICARE ==
[~2019-11-13] MED LIST changes: -POTA10TA12 PO; +POTA20TA4 PO; -POTA20TA82 PO; +POTASSIUM CHLO10 ME1 PO
--- NOTE | 2019-11-13 11:45 | KCIC ---
EXAM: Abdomen sonogram. HISTORY: Elevated liver function laboratory values. TECHNIQUE: Sonographic imaging of the abdomen was performed. COMPARISON: None. FINDINGS: The liver is normal in size. No focal hepatic lesion is seen. The gallbladder is unremarkable. The common bile duct is normal in caliber. The right kidney measures 8.8 cm [id number]. There is a 2.2 cm cyst within the lower mid zone of the right kidney. No solid renal lesion or hydronephrosis is seen. The pancreas, aorta and inferior vena cava are partially obscured due to bowel gas. IMPRESSION: 1. Mildly decreased right renal size. This may be due to measurement technique or mild atrophy. There is a simple appearing right renal cyst. 2. Partially obscured midline structures due to bowel gas. 3. No findings correlate with abnormal liver function laboratory values. Electronically signed by: Alejandra Del Rio MD (11/13/2019 11:43 AM) [id number]
== END | disposition home or self-care (01) ==
LOC: KCIC US 10:34
PROVIDERS: ATTEND Family Medicine
DX: N28.1 Cyst of kidney, acquired (principal); R94.5 Abnormal results of liver function studies
CPT/HCPCS: 76705

== ENCOUNTER → 2019-11-27 | Outpatient (CLI) | payer MEDICARE ==
--- NOTE | 2019-11-27 11:40 | RAD ---
CT of the chest without contrast 11/27/2019 INDICATION: History of lung cancer. Three-month follow-up exam. COMPARISON STUDY: CT of the chest without contrast August 27, 2019. TECHNIQUE: Multidetector CT imaging of the chest was performed without contrast. FINDINGS: Redemonstration of right upper lobe volume loss and consolidation with associated bronchiectasis. The appearance is grossly similar. There has been interval increase in consolidation involving the lateral aspect of the right middle lobe extending along the fissure. New reticulonodular opacities are seen in the basilar left lower lobe. Severe centrilobular emphysematous changes throughout the bilateral lungs again noted. No pneumothorax is seen. Some fibrotic changes in the lung bases are noted. Similar small right pleural effusion noted. Limited visualization of the upper abdomen demonstrates no acute changes. Osteopenia noted. Thoracic compression deformities are similar. IMPRESSION: 1. Interval continued increase in subpleural thickening along the lateral, anterior fissure regions of the right middle lobe. This could represent progressive volume loss, though a malignant etiology cannot be excluded on the basis of this exam. 2. Multiple new reticulonodular opacities in the basilar left lower lobe, new from prior study. Infectious or inflammatory process, however metastatic disease is also possible. 3. Small right pleural effusion, similar to comparison study CT DOSING PQRS STATEMENT: One or more of the following individualized dose reduction techniques were utilized for this examination: 1. Automated exposure control 2. Adjustment of the mA and/or kV according to patient size 3. Use of iterative reconstruction technique Electronically signed by: Da Kang MD (11/27/2019 11:37 AM) [id number]
== END | disposition home or self-care (01) ==
LOC: CT 09:57
PROVIDERS: ATTEND Radiology Radiation Oncology
DX: Z08 Encounter for follow-up examination after completed treatment for malignant neoplasm (principal); J43.2 Centrilobular emphysema; J47.9 Bronchiectasis, uncomplicated; J90 Pleural effusion, not elsewhere classified; M85.88 Other specified disorders of bone density and structure, other site; Z85.118 Personal history of other malignant neoplasm of bronchus and lung
CPT/HCPCS: 71250

== ENCOUNTER 2020-04-20 20:52 | Inpatient (IN) | payer MEDICARE ==
[~2020-04-20] VITALS: Ht 157.5 cm; Wt 45.0 kg
[2020-04-20 21:32] LABS: BASO # 0.1 x10^3/uL (0.0-0.2); BASO % 0 % (0-3); EOS # 0.1 x10^3/uL (0.0-0.7); EOS % 1 % (0-3); HEMATOCRIT 37.8 % (36.0-47.0); HEMOGLOBIN 12.1 g/dL (12.0-15.5); LYMPH # 1.6 x10^3/uL (1.0-4.8); LYMPH % 10 % (24-48); MEAN CORPUSCULAR HEMOGLOBIN 30 pg (25-35); MEAN CORPUSCULAR HGB CONC 32 g/dL (31-37); MEAN CORPUSCULAR VOLUME 93 fL (79-100); MONO # 0.8 x10^3/uL (0.0-1.1); MONO % 5 % (0-9); NEUT # 13.8 x10^3/uL (1.8-7.7); NEUT % 84 % (31-73); PLATELET COUNT 265 x10^3/uL (140-400); RED BLOOD COUNT 4.05 x10^6/uL (3.50-5.40); RED CELL DISTRIBUTION WIDTH 13.9 % (11.5-14.5); WHITE BLOOD COUNT 16.4 x10^3/uL (4.0-11.0)
[2020-04-20 21:42] LABS: CREATININE 1.6 mg/dL (0.6-1.0); GFR 30.9; POTASSIUM 4.1 mmol/L (3.5-5.1)
[2020-04-20 21:48] LABS: ALBUMIN/GLOBULIN RATIO 0.6 (1.0-1.7); TOTAL BILIRUBIN 0.2 mg/dL (0.2-1.0); TOTAL PROTEIN 8.1 g/dL (6.4-8.2)
[2020-04-20 21:51] LABS: % BANDS 5 % (0-9); % LYMPHS 13 % (24-48); % MONOS 1 % (0-10); % SEGS 81 % (35-66); PLT ESTIMATE ADEQUATE (ADEQUATE); TOXIC GRANULATION SLIGHT
--- NOTE | 2020-04-20 22:19 | RAD ---
EXAM: AP View of the chest DATE: 04/20/2020 9:14 PM INDICATION: Reason: dyspnea 19 / Spl. Instructions: / History: COMPARISON: 06/30/2019 FINDINGS/ IMPRESSION: Heart is not enlarged. Aortic calcifications are seen. Right hilar prominence and right upper lung opacities are again seen. Background of interstitial prominence. Patchy opacities are seen in the right mid and lower lung may represent superimposed consolidation. Small right pleural effusion. No pneumothorax. Electronically signed by: Suman Bowden MD (04/20/2020 10:16 PM) [facility]
[2020-04-20 22:30] LABS: BILIRUBIN,URINE NEGATIVE (NEG); CLARITY,URINE CLEAR; COLOR,URINE YELLOW; NITRITE,URINE NEGATIVE (NEG); PH,URINE 5.5 (<5.0-8.0); PROTEIN,URINE 100 mg/dL (NEG-TRACE)
[2020-04-20 22:35] LABS: HYALINE CASTS, URINE FEW /HPF
[2020-04-20 22:36] LABS: BACTERIA,URINE 0 /HPF (0-FEW)
[2020-04-20 22:37] LABS: RBC,URINE OCC /HPF (0-2); WBC,URINE RARE /HPF (0-4)
[2020-04-20 22:46] LABS: INFLUENZA A PATIENT NEGATIVE (NEGATIVE); INFLUENZA B PATIENT NEGATIVE (NEGATIVE)
--- NOTE | 2020-04-20 23:04 | PHYS DOC ---
Past Medical History Past Medical History: Cancer, GERD, Hypertension, Hypothyroid, Other Additional Past Medical Histor: GOUT Past Surgical History: Appendectomy, Hysterectomy, Other Additional Past Surgical Histo: RIGHT PORT PLACEMENT AND REMOVAL, BACK, NECK Smoking Status: Former Smoker Alcohol Use: None Drug Use: None General Adult EDM: Chief Complaint: SHORTNESS OF BREATH HPI: HPI: Patient is a 79 year old female who presents with report of cough, shortness of breath and subjective fever that started a few days ago. Patient's daughter indicates that cough is been nonproductive and fairly dry up until yesterday when cough became more wet sounding and today cough is much worse. Patient has been getting up quite a bit of secretions. Patient normally wears around 3 L of oxygen at home and upon arrival, patient was not wearing oxygen and O2 sat was in the mid 80s. Patient does complain of feeling very short of breath at this time. [] Review of Systems: Review of Systems: Constitutional: Positive subjective fever. [] Respiratory: Positive cough and shortness of breath. [] Cardiovascular: Denies chest pain or edema. [] Integument: Denies rash. [] Neurologic: Denies headache, focal weakness or sensory changes. [] A full 10 point review of systems has been reviewed and is otherwise negative. Heart Score: Risk Factors: Risk Factors: DM, Current or recent (<one month) smoker, HTN, HLP, family history of CAD, obesity. Risk Scores: Score 0 - 3: 2.5% MACE over next 6 weeks - Discharge Home Score 4 - 6: 20.3% MACE over next 6 weeks - Admit for Clinical Observation Score 7 - 10: 72.7% MACE over next 6 weeks - Early Invasive Strategies Allergies: Allergies: Allergies Coded Allergies Type Severity Reaction Last Updated Verified aspirin Allergy Intermediate 05/08/16 Yes codeine Allergy Intermediate 05/08/16 Yes methocarbamol Allergy Intermediate 05/08/16 Yes morphine Allergy Intermediate 05/08/16 Yes oxycodone Allergy Intermediate 05/08/16 Yes sulfamethoxazole Allergy Intermediate 05/08/16 Yes tramadol Allergy Intermediate 05/08/16 Yes trimethoprim Allergy Intermediate 05/08/16 Yes Physical Exam: PE: Constitutional: Well developed, well nourished, no acute distress, non-toxic appearance. [] HENT: Normocephalic, atraumatic, bilateral external ears normal, oropharynx moist, no oral exudates, nose normal. [] Eyes: PERRLA, EOMI, conjunctiva normal, no discharge. [] Neck: Normal range of motion, no tenderness, supple, no stridor. [] Cardiovascular: Mildly tachycardic rate with regular rhythm [] Lungs & Thorax: Coarse inspiratory and expiratory rhonchi are noted bilaterally, right greater than left to auscultation [] Abdomen: Bowel sounds normal, soft, no tenderness. [] Skin: Warm, dry, no erythema, no rash. [] Extremities: No tenderness, no cyanosis, no clubbing, ROM intact, no edema. [] Neurologic: Alert and oriented X 3, no focal deficits noted. [] Current Patient Data: Labs: Laboratory Tests Test 04/20/20 21:20 04/20/20 22:15 White Blood Count 16.4 x10^3/uL (4.0-11.0) H Red Blood Count 4.05 x10^6/uL (3.50-5.40) Hemoglobin 12.1 g/dL (12.0-15.5) Hematocrit 37.8 % (36.0-47.0) Mean Corpuscular Volume 93 fL (79-100) Mean Corpuscular Hemoglobin 30 pg (25-35) Mean Corpuscular Hemoglobin Concent 32 g/dL (31-37) Red Cell Distribution Width 13.9 % (11.5-14.5) Platelet Count 265 x10^3/uL (140-400) Neutrophils (%) (Auto) 84 % (31-73) H Lymphocytes (%) (Auto) 10 % (24-48) L Monocytes (%) (Auto) 5 % (0-9) Eosinophils (%) (Auto) 1 % (0-3) Basophils (%) (Auto) 0 % (0-3) Neutrophils # (Auto) 13.8 x10^3/uL (1.8-7.7) H Lymphocytes # (Auto) 1.6 x10^3/uL (1.0-4.8) Monocytes # (Auto) 0.8 x10^3/uL (0.0-1.1) Eosinophils # (Auto) 0.1 x10^3/uL (0.0-0.7) Basophils # (Auto) 0.1 x10^3/uL (0.0-0.2) Segmented Neutrophils % 81 % (35-66) H Band Neutrophils % 5 % (0-9) Lymphocytes % 13 % (24-48) L Monocytes % 1 % (0-10) Toxic Granulation Slight Platelet Estimate Adequate (ADEQUATE) Sodium Level 143 mmol/L (136-145) Potassium Level 4.1 mmol/L (3.5-5.1) Chloride Level 105 mmol/L (98-107) Carbon Dioxide Level 28 mmol/L (21-32) Anion Gap 10 (6-14) Blood Urea Nitrogen 21 mg/dL (7-20) H Creatinine 1.6 mg/dL (0.6-1.0) H Estimated GFR (Cockcroft-Gault) 30.9 BUN/Creatinine Ratio 13 (6-20) Glucose Level 294 mg/dL (70-99) H Calcium Level 9.0 mg/dL (8.5-10.1) Total Bilirubin 0.2 mg/dL (0.2-1.0) Aspartate Amino Transferase (AST) 34 U/L (15-37) Alanine Aminotransferase (ALT) 24 U/L (14-59) Alkaline Phosphatase 79 U/L (46-116) Troponin I Quantitative 0.445 ng/mL (0.000-0.055) EE-Vqt-V-Type Natriuretic Peptide 392 pg/mL (0-449) Total Protein 8.1 g/dL (6.4-8.2) Albumin 3.0 g/dL (3.4-5.0) L Albumin/Globulin Ratio 0.6 (1.0-1.7) L Urine Collection Type U cath Urine Color Yellow Urine Clarity Clear Urine pH 5.5 (<5.0-8.0) Urine Specific [place] 1.020 (1.000-1.030) Urine Protein 100 mg/dL (NEG-TRACE) Urine Glucose (UA) Negative mg/dL (NEG) Urine Ketones (Stick) Negative mg/dL (NEG) Urine Blood Negative (NEG) Urine Nitrite Negative (NEG) Urine Bilirubin Negative (NEG) Urine Urobilinogen Dipstick 1.0 mg/dL (0.2 mg/dL) Urine Leukocyte Esterase Negative (NEG) Urine RBC Occ /HPF (0-2) Urine WBC Rare /HPF (0-4) Urine Transitional Epithelial Cells Occ /LPF Urine Bacteria 0 /HPF (0-FEW) Urine Hyaline Casts Few /HPF Urine Mucus Slight /LPF Influenza Type A Antigen Negative (NEGATIVE) Influenza Type B Antigen Negative (NEGATIVE) Laboratory Tests 04/20/20 21:20 Laboratory Tests 04/20/20 21:20 Vital Signs: Vital Signs Date Time Temp Pulse Resp B/P (MAP) Pulse Ox O2 Delivery O2 Flow Rate FiO2 04/20/20 20:52 97.7 130 32 165/85 (111) 87 Room Air 97.7 EKG: EKG: [] Radiology/Procedures: Radiology/Procedures: [] Impression: PROCEDURE: PORTABLE CHEST 1V EXAM: AP View of the chest DATE: 04/20/2020 9:14 PM INDICATION: Reason: dyspnea 19 / Spl. Instructions: / History: COMPARISON: 06/30/2019 FINDINGS/ IMPRESSION: Heart is not enlarged. Aortic calcifications are seen. Right hilar prominence and right upper lung opacities are again seen. Background of interstitial prominence. Patchy opacities are seen in the right mid and lower lung may represent superimposed consolidation. Small right pleural effusion. No pneumothorax. Electronically signed by: Suman Bowden MD (04/20/2020 10:16 PM) [facility] Course & Med Decision Making: Course & Med Decision Making Pertinent Labs and Imaging studies reviewed. (See chart for details) [] Dragraghavendra Disclaimer: Grecia Disclaimer: This electronic medical record was generated, in whole or in part, using a voice recognition dictation system. Departure Departure Impression: Primary Impression: Pneumonia Qualified Codes: J18.9 - Pneumonia, unspecified organism Additional Impressions: Person under investigation for COVID-19 Elevated troponin Disposition: ADMITTED INPATIENT Admitting Physician: LATASHA Condition: IMPROVED Referrals: MONICA PETERSON (PCP) Justicifation of Admission Dx: Justifications for Admission: Justification of Admission Dx: Comment: (Pneumonia; elevated troponin) KIMMIE PRIDE Jr. DO Apr 20, 2020 23:03
[2020-04-20 23:45] LABS: BASE EXCESS ABG -1 mmol/L (-3-3); HCO3 ABG 26 mmol/L (21-28); PCO2 ABG 49 mmHg (35-46); PO2 ABG 87 mmHg (65-108); SAT O2 ABG 96 % (92-99)
[2020-04-20 23:46] LABS: FIO2 ABG 34
[2020-04-21] VITALS (13 sets, daily range): BP systolic 95–138; BP diastolic 56–78
[2020-04-21] MEDS ORDERED: ACETAMINOPHEN 325 MG TABLET. PO PRN (00:15)
[2020-04-21] MEDS ORDERED: ONDANSETRON PF 4 MG/2 ML VIAL. IV PRN (00:15)
[2020-04-21] MEDS ORDERED: cefTRIAXone IV Push 1 GM VIAL. IVP ONE (00:30)
[2020-04-21] MEDS ORDERED: AZITHRMYCN 500MG IVPB FOR OMNI 250 ML IV ONE (00:30)
[2020-04-21] MEDS: HYDROmorphone 2 MG/ML VIAL IV PRN (01:32)
[2020-04-21] MEDS ORDERED: IV NORMAL SALINE 500ML BAG 500 ML IV ONE (02:00)
--- NOTE | 2020-04-21 03:24 | EKG ---
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
[2020-04-21] MEDS ORDERED: ALBU0.63 NEB (04:58)
[2020-04-21] MEDS ORDERED: ALBU2.5V8 IH (04:58)
[2020-04-21] MEDS ORDERED: MIRT15TA3 PO (04:58)
[2020-04-21 08:43] LABS: BASO # 0.1 x10^3/uL (0.0-0.2); BASO % 1 % (0-3); EOS % 0 % (0-3); HEMATOCRIT 36.5 % (36.0-47.0); HEMOGLOBIN 11.7 g/dL (12.0-15.5); LYMPH # 0.4 x10^3/uL (1.0-4.8); LYMPH % 3 % (24-48); MEAN CORPUSCULAR HEMOGLOBIN 30 pg (25-35); MEAN CORPUSCULAR HGB CONC 32 g/dL (31-37); MEAN CORPUSCULAR VOLUME 94 fL (79-100); MONO # 0.6 x10^3/uL (0.0-1.1); MONO % 5 % (0-9); NEUT # 11.3 x10^3/uL (1.8-7.7); NEUT % 92 % (31-73); PLATELET COUNT 245 x10^3/uL (140-400); RED BLOOD COUNT 3.88 x10^6/uL (3.50-5.40); WHITE BLOOD COUNT 12.3 x10^3/uL (4.0-11.0)
--- NOTE | 2020-04-21 08:52 | PDOC2 ---
TERRY MILLER INHALATION THERAPY AIDE 04/21/20 0852: CARDIAC CONSULT DATE OF CONSULT Date of Consult DATE: 04/21/20 TIME: 08:37 REASON FOR CONSULT Reason for Consult: elevated troponin, katty SOURCE Source: Caregiver (son roxanna), Chart review HISTORY OF PRESENT ILLNESS HISTORY OF PRESENT ILLNESS This is an 79 yo female admitted for complains of shorteness of breath. She typically lives alone and her sons and daughter have been alternating to take care of her at her house. In the last week they have noticed that she has been coughing and at times SOA. She is very [place] hence I could not get much details from her. Her DPOA is her daughter. I did spoke with her daughter and son and confirmed that she was coughing so much yesterday to a point that she gets nauseated and vomit. Her sputum is ometimes frothy and white/clear. Subjective fever reported on Sunday. No chest pain per se but noted with some discomfort associated after coughing spells and non sustained and also some wheezing. No recent falls or injury. Presently no chest pain but requiring more O2. Her daughter's son who works in [employer] did have covid about 1 and 1/2 months ago and the daughter denies any recent exposure to him herself as well as the pt. PAST MEDICAL HISTORY Cardiovascular: CAD, CHF, HTN, Hyperlipidemia Pulmonary: COPD GI: Diverticulosis, GERD Heme/Onc: Cancer (lung NSCLCA with chemo and radiation) Musculoskeletal: low back pain, Osteoarthritis ENT: Other (very [place]) Renal/: UTI, Other (interstitial cystitis) Endocrine: Osteoporosis PAST SURGICAL HISTORY Past Surgical History: Hysterectomy, Other (PCI/JOEY to RCA; laminectomy; bladder sling) FAMILY HISTORY Family History noncontributory to CV SOCIAL HISTORY Smoke: Quit ALCOHOL: none Drugs: None Lives: Alone CURRENT MEDICATIONS CURRENT MEDICATIONS Current Medications Medications (Trade) Dose Ordered Sig/Morro Route PRN Reason Start Time Stop Time Status Last Admin Dose Admin Ceftriaxone Sodium (Rocephin) 1 gm 1X ONCE IVP 04/21/20 00:30 04/21/20 00:31 DC 04/21/20 01:29 Azithromycin 250 ml @ 250 mls/hr 1X ONCE IV 04/21/20 00:30 04/21/20 01:29 DC 04/21/20 01:30 Ondansetron HCl (Zofran) 4 mg PRN Q8HRS PRN IV NAUSEA/VOMITING 1ST CHOICE 04/21/20 00:15 04/22/20 00:14 04/21/20 01:33 Hydromorphone HCl (Dilaudid) 0.5 mg PRN Q2HRS PRN IV SEVERE PAIN 7-10 04/21/20 01:00 04/21/20 01:32 Sodium Chloride 500 ml @ 500 mls/hr 1X ONCE IV 04/21/20 02:00 04/21/20 02:59 DC 04/21/20 01:33 ALLERGIES ALLERGIES: Coded Allergies: aspirin (Verified Allergy, Intermediate, 05/08/16) codeine (Verified Allergy, Intermediate, 05/08/16) methocarbamol (Verified Allergy, Intermediate, 05/08/16) morphine (Verified Allergy, Intermediate, 05/08/16) Morphine Sulfate ER 15 mg oxycodone (Verified Allergy, Intermediate, 05/08/16) sulfamethoxazole (Verified Allergy, Intermediate, 05/08/16) tramadol (Verified Allergy, Intermediate, 05/08/16) trimethoprim (Verified Allergy, Intermediate, 05/08/16) ibuprofen (Unverified Allergy, Mild, 04/21/20) ROS Review of System limited, very [place] PHYSICAL EXAM PHYSICAL EXAM Discussed with RN, visual exam, reviewed diagnostics. General: Alert, Cooperative, moderate distress HEENT: Atraumatic Lungs: Other (CXR reviewed requiring more O2 via Venturi mask) Heart: Other (sinus tachycardia) Abdomen: Soft Extremities: No edema Skin: No breakdown Neuro: Normal speech Psych/Mental Status: Mental status NL, Mood NL MUSCULOSKELETAL: Osteoarthritic changes both hands VITALS/I&O VITALS/I&O: Vital Signs Date Time Temp Pulse Resp B/P (MAP) Pulse Ox O2 Delivery O2 Flow Rate FiO2 04/21/20 03:00 Venturi Mask 15.0 04/21/20 02:50 220 20 101/63 (76) 86 04/20/20 20:52 97.7 97.7 I & O 0 04/20/20 04/20/20 04/21/20 15:00 23:00 07:00 Intake Total 750 ml Balance 750 ml LABS Lab: Laboratory Tests Test 04/20/20 21:20 04/20/20 22:15 04/20/20 22:21 04/20/20 23:35 White Blood Count 16.4 x10^3/uL (4.0-11.0) H Red Blood Count 4.05 x10^6/uL (3.50-5.40) Hemoglobin 12.1 g/dL (12.0-15.5) Hematocrit 37.8 % (36.0-47.0) Mean Corpuscular Volume 93 fL (79-100) Mean Corpuscular Hemoglobin 30 pg (25-35) Mean Corpuscular Hemoglobin Concent 32 g/dL (31-37) Red Cell Distribution Width 13.9 % (11.5-14.5) Platelet Count 265 x10^3/uL (140-400) Neutrophils (%) (Auto) 84 % (31-73) H Lymphocytes (%) (Auto) 10 % (24-48) L Monocytes (%) (Auto) 5 % (0-9) Eosinophils (%) (Auto) 1 % (0-3) Basophils (%) (Auto) 0 % (0-3) Neutrophils # (Auto) 13.8 x10^3/uL (1.8-7.7) H Lymphocytes # (Auto) 1.6 x10^3/uL (1.0-4.8) Monocytes # (Auto) 0.8 x10^3/uL (0.0-1.1) Eosinophils # (Auto) 0.1 x10^3/uL (0.0-0.7) Basophils # (Auto) 0.1 x10^3/uL (0.0-0.2) Segmented Neutrophils % 81 % (35-66) H Band Neutrophils % 5 % (0-9) Lymphocytes % 13 % (24-48) L Monocytes % 1 % (0-10) Toxic Granulation Slight Platelet Estimate Adequate (ADEQUATE) Sodium Level 143 mmol/L (136-145) Potassium Level 4.1 mmol/L (3.5-5.1) Chloride Level 105 mmol/L (98-107) Carbon Dioxide Level 28 mmol/L (21-32) Anion Gap 10 (6-14) Blood Urea Nitrogen 21 mg/dL (7-20) H Creatinine 1.6 mg/dL (0.6-1.0) H Estimated GFR (Cockcroft-Gault) 30.9 BUN/Creatinine Ratio 13 (6-20) Glucose Level 294 mg/dL (70-99) H Calcium Level 9.0 mg/dL (8.5-10.1) Total Bilirubin 0.2 mg/dL (0.2-1.0) Aspartate Amino Transferase (AST) 34 U/L (15-37) Alanine Aminotransferase (ALT) 24 U/L (14-59) Alkaline Phosphatase 79 U/L (46-116) Troponin I Quantitative 0.445 ng/mL (0.000-0.055) TK-Buv-E-Type Natriuretic Peptide 392 pg/mL (0-449) Total Protein 8.1 g/dL (6.4-8.2) Albumin 3.0 g/dL (3.4-5.0) L Albumin/Globulin Ratio 0.6 (1.0-1.7) L Urine Collection Type U cath Urine Color Yellow Urine Clarity Clear Urine pH 5.5 (<5.0-8.0) Urine Specific [place] 1.020 (1.000-1.030) Urine Protein 100 mg/dL (NEG-TRACE) Urine Glucose (UA) Negative mg/dL (NEG) Urine Ketones (Stick) Negative mg/dL (NEG) Urine Blood Negative (NEG) Urine Nitrite Negative (NEG) Urine Bilirubin Negative (NEG) Urine Urobilinogen Dipstick 1.0 mg/dL (0.2 mg/dL) Urine Leukocyte Esterase Negative (NEG) Urine RBC Occ /HPF (0-2) Urine WBC Rare /HPF (0-4) Urine Transitional Epithelial Cells Occ /LPF Urine Bacteria 0 /HPF (0-FEW) Urine Hyaline Casts Few /HPF Urine Mucus Slight /LPF Influenza Type A Antigen Negative (NEGATIVE) Influenza Type B Antigen Negative (NEGATIVE) Group A Streptococcus Rapid Negative (NEGATIVE) O2 Saturation 96 % (92-99) Arterial Blood pH 7.33 (7.35-7.45) L Arterial Blood pCO2 at Patient Temp 49 mmHg (35-46) H Arterial Blood pO2 at Patient Temp 87 mmHg (65-108) Arterial Blood HCO3 26 mmol/L (21-28) Arterial Blood Base Excess -1 mmol/L (-3-3) FiO2 34 Test 04/21/20 03:25 04/21/20 06:11 Troponin I Quantitative 2.797 ng/mL (0.000-0.055) 2.939 ng/mL (0.000-0.055) Laboratory Tests 04/20/20 21:20 Laboratory Tests 04/20/20 21:20 ECHOCARDIOGRAM ECHOCARDIOGRAM <Conclusion> The left ventricular systolic function is normal. The Ejection Fraction is 55-60%. There is normal LV segmental wall motion. Transmitral Doppler flow pattern is Grade I-abnormal relaxation pattern. There is no evidence of significant pericardial effusion. DATE: 07/24/19 1349 HEART CATH HEART CATH Conclusion 1. 90% stenosis involving the right coronary artery. The previously placed s tent in the midsegment was patent with 30% in-stent restenosis. 2. Successful PCI/stent placement to the right coronary artery. Recommendations Patient is allergic to aspirin. Continue Plavix 75 mg daily for preferably one year. DATE: 04/22/19 1044 ASSESSMENT/PLAN ASSESSMENT/PLAN 1. NSTEMI: trop 2.9 suspect demand mediated, type 2 with underlying pneumonia. EKG SR with no significant changes by comparison. No CP 2. CAD: S/P PCI/RCA 03/2019 3. Pneumonia with AECOPD 4. Suspecting Covid-19 with elevated inflammatory markers 5. Hx of lung CA with past radiation/chemo treatment 6. Hypothyroidism 7. HTN: controlled 8. HLP: on goal 9. RENETTA Recommendations 1. Requiring more O2. Labs denoting cytokine storm, Awaiting covid test. Transfer to ICU 2. Consult pulmonary 3. Will start on heparin drip. Continue plavix. Replace Mg 4. Secondary prevention as tolerated. 5. Treat pulmonary issues, will consider for ischemic workup pending clinical course. TTE if neg for covid. ARGELIA QUIROZ MD 04/21/20 1717: CARDIAC CONSULT ASSESSMENT/PLAN ASSESSMENT/PLAN Patient seen and examined. Agree with MOLD MECHANIC's assessment and plan. Acute respiratory failure secondary to combination of acute COPD exacerbation and pneumonia. COVID test pending. Pulmonary team following. Non-STEMI most probably demand ischemia. CAD s/p PCI/stent RCA in 2019. We will consider ischemic evaluation as an outpatient. Continue heparin infusion per protocol. Thank you for your consultation TERRY MILLER APRN Apr 21, 2020 08:52 ARGELIA QUIROZ MD Apr 21, 2020 17:17
[2020-04-21] MEDS ORDERED: ANTI-COAG MONITOR BY PHARMACY. MC PRN (09:00)
[2020-04-21] MEDS ORDERED: ENOXAPARIN 30 MG/0.3 ML SYRINGE. SQ SCH (09:00)
[2020-04-21] MEDS ORDERED: HEPARIN for IV BOLUS 10,000 UNIT/10 ML VIAL. IV PRN (09:00)
[2020-04-21 09:06] LABS: PROTHROMBIN TIME PATIENT 15.8 SEC (11.7-14.0)
[2020-04-21 09:09] LABS: D-DIMER 3.57 ug/mlFEU (0.00-0.50)
--- NOTE | 2020-04-21 09:24 | NUR ---
SW following. Discussed with RN, pt from home (possibly with daughter), COVID-19 pending. Pt on 15L venti mask, uses 3-4L oxygen at home. Pt is on bed rest. SW will continue to follow.
[2020-04-21 09:47] LABS: C-REACTIVE PROTEIN 110.4 mg/L (0-3.3)
[2020-04-21] MEDS: HEPARIN 25,000UTS/250ML PREMIX 250 ML IV PRN (09:58)
[2020-04-21 10:05] LABS: CALCIUM 8.5 mg/dL (8.5-10.1); CREATININE 1.5 mg/dL (0.6-1.0); GFR 33.3; MAGNESIUM 1.7 mg/dL (1.8-2.4); POTASSIUM 4.4 mmol/L (3.5-5.1)
[2020-04-21 10:07] LABS: CHOLESTEROL/HDL RATIO 2.4
[2020-04-21 10:25] LABS: BASE EXCESS COOX -3 mmol/L (-3-3); HCO3 COOX 22 mmol/L (21-28); METHEMOGLOBIN 0.3 % (0.0-1.9); OXYHEMOGLOBIN 93.9 %; PCO2 COOX 42 mmHg (35-46); PO2 COOX 74 mmHg (65-108); SAT O2 COOX 94 % (92-99)
--- NOTE | 2020-04-21 11:32 | NUR ---
Patient is awake, alert, oriented, on 15 liters O2 per venti mask, tachypneic, afebrile. She's hard of hearing and can be forgetful. Patient transferred to the ICU at 1100 per MD order, report called to Jimena KEENE, belongings with patient.
--- NOTE | 2020-04-21 12:01 | NUR ---
Patient transferred to this RN in ICU at approx 1120. Sharp placed upon transfer and patient assessed. Patient alert and oriented. Skin assessed and foam placed on elbows d/t redness for protection. Will continue to monitor.
--- NOTE | 2020-04-21 12:04 | EKG ---
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
[2020-04-21] MEDS ORDERED: MAGNESIUM SULFATE 2GM 50 ML IV ONE (13:00)
--- NOTE | 2020-04-21 15:26 | CONS ---
DATE OF CONSULTATION: 04/21/2020 PULMONARY CONSULTATION ATTENDING PHYSICIAN: Esteban Flores MD. REASON FOR CONSULTATION: Respiratory failure. HISTORY OF PRESENT ILLNESS: The patient is an 79-year-old female, who has history of lung cancer diagnosed in 2016. She received radiation and chemo. She has 50 plus years of tobacco use and has underlying COPD. She was brought into the hospital after she was noticed to have increased shortness of breath. She had some subjective fever at home. She had some cough with some colored sputum production. The patient's grandson works at [employer] who was tested positive; however, he had no symptoms and the patient was never exposed to him. The patient was transferred to the ICU because of increased work of breathing. Her pH initially on ABG was 7.33, pCO2 of 49, a pO2 of 87 on 34% FiO2. She is currently on a 50% Ventimask with a pH of 7.34, pCO2 of 42, and a pO2 of 74 with bicarbonate of 22. She is very hard of hearing and difficult to obtain much history from the patient, but I personally called the patient's daughter and discussed all the history. PAST MEDICAL HISTORY: Significant for a history of lung cancer diagnosed in 2016, status post radiation and chemo. History of suspected severe COPD from 50 years of tobaccoism. Hypertension, hypothyroidism, and gout. PAST SURGICAL HISTORY: No recent surgeries. In the past, she had a right port placement and removal, and back and neck surgery. Appendectomy and hysterectomy. ALLERGIES: All reviewed as listed in the MRAD. MEDICATIONS: All reviewed as listed in the MRAD. REVIEW OF SYSTEMS: Unable to obtain as the patient is hard of hearing and unable to answer much questions. SOCIAL HISTORY: Smoked for about 50 years before quitting. PHYSICAL EXAMINATION: GENERAL: She is mildly tachypneic. VITAL SIGNS: Blood pressure is stable. Pulse ox in the 90s on 50% Ventimask. She has been afebrile. HEENT: Sclerae nonicteric. NECK: Supple. LUNGS: With diminished breath sounds posteriorly. CARDIOVASCULAR: With a regular rate. ABDOMEN: Soft. EXTREMITIES: With no pitting edema. LABORATORY DATA: Labs are reviewed. BUN 25, creatinine 1.5. INR 1.3. D-dimer 3.5. White cell count was 16.4, hemoglobin 12.1, and platelets are 265. IMPRESSION: 1. Acute hypoxic respiratory failure secondary to combination of underlying chronic obstructive pulmonary disease with exacerbation, clinically suspected pneumonia and NSTMI 2. Abnormal chest x-ray with marked volume loss in the right upper lobe secondary to post-radiation changes related to her lung cancer and also some interstitial infiltrates, right lower lobe and left lung suggesting a pneumonia. 3. History of lung cancer diagnosed in 2016, status post radiation and chemo with marked volume loss in the right upper lobe related to tumor and radiation changes. She had a CT chest in 10/2019. At that time, she also had some new reticulonodular opacities in the left lower lobe, likely inflammatory. 4. Leukocytosis secondary to pneumonia. 5. Acute kidney injury. 6. Abnormal troponin suggesting non-ST myocardial infarction. 7. Abnormal D-dimer, which is a nonspecific thing. This could be related to underlying cancer. We will obtain Dopplers of lower extremities. RECOMMENDATIONS: 1. We will continue with present Venturi mask. Keep sats 92 and above. 2. We may add Vapotherm if clinically deteriorates versus BiPAP. 3. Continue present empiric antibiotics. 4. Plavix. 5. Venous Dopplers of lower extremities once COVID ruled out. My clinical suspicion for COVID is low. 6. Obtain an echocardiogram. 7. Follow Cardiology recommendation. 8. Heparin per protocol. 9. Broad-spectrum antibiotics. 10. I had a lengthy discussion with the patient's daughter, Nida. I had explained underlying condition as well as her prognosis. I had highly recommended a DNR and she is agreeable to that. Discussed with RN and RT. Critical care time 38 minutes. PONCE TENA MD DR: SUNNY/veda JOB#: [id number] / [id number] TONA
--- NOTE | 2020-04-21 15:47 | PDOC1 ---
History and Physical Date of Admission Date of Admission DATE: 04/21/20 TIME: 15:11 Identification/Chief Complaint Chief Complaint cough and sob. Problems: (1) Person under investigation for COVID-19 (2) Elevated troponin (3) Pneumonia History of Present Illness History of Present Illness 79 yo female with hx CAD s/p PCI, lung cancer who presents with sob since 2 days ago reports non-productive cough. patient normally wears 3 liters of 02 at home. lives with son and daughter who alternate taking care of her. patient hard of hearing so hx difficult to obtain. per daughter, no chest pain, GI symptoms, anosmia. patients daughter's son works in a [employer] and did have covid 1 month ago. daughter denies recent exposure though. patient seen on floor and on 15 liters. chest xray shows: Heart is not enlarged. Aortic calcifications are seen. Right hilar prominence and right upper lung opacities are again seen. Background of interstitial prominence. Patchy opacities are seen in the right mid and lower lung may represent superimposed consolidation. Small right pleural effusion. No pneumothorax. hospitalist called for admission and further evaluation. Past Medical History Cardiovascular: CAD, CHF, HTN, Hyperlipidemia Pulmonary: COPD GI: Diverticulosis, GERD Heme/Onc: Cancer (lung NSCLCA with chemo and radiation) Psych: Depression Musculoskeletal: low back pain, Osteoarthritis ENT: Other (very [place]) Renal/: UTI, Other (interstitial cystitis) Endocrine: Osteoporosis Past Surgical History Past Surgical History: Hysterectomy, Other (PCI/JOEY to RCA; laminectomy; bladder sling) Family History Family History: No Significant Social History Smoke: Quit ALCOHOL: none Drugs: None Current Problem List Problem List Problems Medical Problems: (1) Elevated troponin Status: Acute (2) Person under investigation for COVID-19 Status: Acute (3) Pneumonia Status: Acute Current Medications Current Medications Current Medications Ceftriaxone Sodium (Rocephin) 1 gm 1X ONCE IVP Last administered on 04/21/20at 01:29; Start 04/21/20 at 00:30; Stop 04/21/20 at 00:31; Status DC Azithromycin 250 ml @ 250 mls/hr 1X ONCE IV Last administered on 04/21/20at 01:30; Start 04/21/20 at 00:30; Stop 04/21/20 at 01:29; Status DC Ondansetron HCl (Zofran) 4 mg PRN Q8HRS PRN IV NAUSEA/VOMITING 1ST CHOICE Last administered on 04/21/20at 01:33; Start 04/21/20 at 00:15; Stop 04/22/20 at 00:14 Acetaminophen (Tylenol) 650 mg PRN Q4HRS PRN PO FEVER > 100.3'F; Start 04/21/20 at 00:15; Stop 04/22/20 at 00:14 Hydromorphone HCl (Dilaudid) 0.5 mg PRN Q2HRS PRN IV SEVERE PAIN 7-10 Last administered on 04/21/20at 01:32; Start 04/21/20 at 01:00 Sodium Chloride 500 ml @ 500 mls/hr 1X ONCE IV Last administered on 04/21/20at 01:33; Start 04/21/20 at 02:00; Stop 04/21/20 at 02:59; Status DC Ceftriaxone Sodium (Rocephin) 1 gm Q24H IVP ; Start 04/22/20 at 06:00 Azithromycin 500 mg/Sodium Chloride 250 ml @ 250 mls/hr Q24H IV ; Start 04/22/20 at 06:00 Enoxaparin Sodium (Lovenox Per Pharmacy Prophylaxis Dosing) 1 each PRN DAILY PRN MC SEE COMMENTS; Start 04/21/20 at 08:45; Stop 04/21/20 at 10:34; Status DC Enoxaparin Sodium (Lovenox 30mg Syringe) 30 mg Q24H SQ Last administered on 04/21/20at 09:35; Start 04/21/20 at 09:00; Stop 04/21/20 at 10:31; Status DC Heparin Sodium/ Dextrose 250 ml @ 5.832 mls/ hr CONT PRN IV PER PROTOCOL Last administered on 04/21/20at 09:58; Start 04/21/20 at 09:00 Heparin Sodium (Porcine) (Heparin Sodium) 1,200 unit PRN Q6HRS PRN IV FOR UFH LEVEL LESS THAN 0.2; Start 04/21/20 at 09:00 Clopidogrel Bisulfate (Plavix) 75 mg DAILYWBKFT PO ; Start 04/22/20 at 08:00 Info (Anti-Coagulation Monitoring By Pharmacy) 1 each PRN DAILY PRN MC SEE COMMENTS; Start 04/21/20 at 09:00 Magnesium Sulfate 50 ml @ 25 mls/hr 1X ONCE IV Last administered on 04/21/20at 12:46; Start 04/21/20 at 13:00; Stop 04/21/20 at 14:59; Status DC Atorvastatin Calcium (Lipitor) 20 mg QHS PO ; Start 04/21/20 at 21:00 Metoprolol Succinate (Toprol Xl) 25 mg DAILY PO ; Start 04/22/20 at 09:00 Active Scripts Active Clonidine Hcl 0.1 Mg Tablet 0.1 Mg PO BID PRN Take as needed for blood pressures greater than 185 systolic (top number) and/or 105 diastolic (bottom number). Mqwoby-Tinmqopc-Ktup 50-325-40 (Butalb/Acetaminophen/Caffeine) 1 Each Tablet 1 Each PO Q6HRS PRN Atorvastatin Calcium 20 Mg Tablet 20 Mg PO QHS 30 Days Clopidogrel (Clopidogrel Bisulfate) 75 Mg Tablet 75 Mg PO DAILYWBKFT 30 Days Vitamin B-12 (Cyanocobalamin (Vitamin B-12)) 1,000 Mcg Tablet 1,000 Mcg PO DAILY Reported Proair Hfa Inhaler (Albuterol Sulfate) 8.5 Gm Hfa.aer.ad 2 Puff IH PRN Q4-6HRS PRN 21 Days Mirtazapine 15 Mg Tablet 15 Mg PO DAILY Albuterol Sulfate Neb Soln (Albuterol Sulfate) 0.63 Mg/3 Ml Vial.neb 0.63 Mg NEB PRN Q4HRS PRN Theophylline (Theophylline Anhydrous) 400 Mg Tablet.er 200 Mg PO DAILY Prochlorperazine Maleate 10 Mg Tablet 1 Tab PO Q6HRS NITROGLYCERIN SubLingual (Nitroglycerin) 0.4 Mg Tab.subl 0.4 Mg SL PRN Q5MIN PRN Super B Maxi Complex Caplet (Vitamin B Complex/Folic Acid) 0.4 Mg Tablet 0.4 Mg PO DAILY Metoprolol Succinate ( Xl ) (Metoprolol Succinate) 25 Mg Tab.er.24h 25 Mg PO DAILY Isosorbide Mononitrate Er (Isosorbide Mononitrate) 30 Mg Tab.er.24h 30 Mg PO DAILY Hydromorphone Hcl 4 Mg Tablet 4 Mg PO Q6HRS PRN Ferrous Sulfate 325 Mg Tablet 325 Mg PO DAILY Vitamin D (Cholecalciferol (Vitamin D3)) 2,000 Unit Capsule 2,000 Unit PO BID Potassium Chloride 10 Meq Tablet.er 10 Meq PO DAILY Colace (Docusate Sodium) 100 Mg Capsule 100 Mg PO HS Nexium Capsule (Esomeprazole Magnesium) 40 Mg Capsule.dr 2 Cap PO DAILY Levothyroxine Sodium 75 Mcg Tablet 1 Tab PO DAILY Gabapentin (Gabapentin) 100 Mg Capsule 100 Mg PO HS Allopurinol 100 Mg Tablet 1 Tab PO DAILY Allergies Allergies: Coded Allergies: aspirin (Verified Allergy, Intermediate, 05/08/16) codeine (Verified Allergy, Intermediate, 05/08/16) methocarbamol (Verified Allergy, Intermediate, 05/08/16) morphine (Verified Allergy, Intermediate, 05/08/16) Morphine Sulfate ER 15 mg oxycodone (Verified Allergy, Intermediate, 05/08/16) sulfamethoxazole (Verified Allergy, Intermediate, 05/08/16) tramadol (Verified Allergy, Intermediate, 05/08/16) trimethoprim (Verified Allergy, Intermediate, 05/08/16) ibuprofen (Unverified Allergy, Mild, 04/21/20) ROS Review of System CONSTITUTIONAL: No fever or chills EYES: No recent changes SKIN: No rash or itching CARDIOVASCULAR: No chest pain, syncope, palpitations, or edema RESPIRATORY: No SOB or cough GASTROINTESTINAL: No nausea, vomiting or abdominal pain NEUROLOGICAL: No headaches or weakness ENDOCRINE: No cold or heat intolerance GENITOURINARY: No urgency or frequency of urination MUSCULOSKELETAL: No back pain or joint pain LYMPHATICS: No enlarged lymph nodes PSYCHIATRIC: No anxiety or depression Physical Exam Physical Exam GENERAL: No apparent distress. Alert and oriented. HEENT: Head normocephalic, atraumatic. NECK: Supple LUNGS: course bilaterally HEART: RRR, S1, S2 present, pulses intact ABDOMEN: Soft, positive bowel sounds. EXTREMITIES: No cyanosis or edema. NEUROLOGIC: Normal speech, normal tone PSYCHIATRIC: Normal affect, normal mood. SKIN: No ulceration. Vitals Vitals Vital Signs Date Time Temp Pulse Resp B/P (MAP) Pulse Ox O2 Delivery O2 Flow Rate FiO2 04/21/20 13:30 109 24 127/71 (89) 96 Venturi Mask 15.0 04/21/20 11:30 98.5 98.5 Labs Labs Laboratory Tests Test 04/20/20 21:20 04/20/20 22:15 04/20/20 22:21 04/20/20 23:35 White Blood Count 16.4 x10^3/uL (4.0-11.0) Red Blood Count 4.05 x10^6/uL (3.50-5.40) Hemoglobin 12.1 g/dL (12.0-15.5) Hematocrit 37.8 % (36.0-47.0) Mean Corpuscular Volume 93 fL (79-100) Mean Corpuscular Hemoglobin 30 pg (25-35) Mean Corpuscular Hemoglobin Concent 32 g/dL (31-37) Red Cell Distribution Width 13.9 % (11.5-14.5) Platelet Count 265 x10^3/uL (140-400) Neutrophils (%) (Auto) 84 % (31-73) Lymphocytes (%) (Auto) 10 % (24-48) Monocytes (%) (Auto) 5 % (0-9) Eosinophils (%) (Auto) 1 % (0-3) Basophils (%) (Auto) 0 % (0-3) Neutrophils # (Auto) 13.8 x10^3/uL (1.8-7.7) Lymphocytes # (Auto) 1.6 x10^3/uL (1.0-4.8) Monocytes # (Auto) 0.8 x10^3/uL (0.0-1.1) Eosinophils # (Auto) 0.1 x10^3/uL (0.0-0.7) Basophils # (Auto) 0.1 x10^3/uL (0.0-0.2) Segmented Neutrophils % 81 % (35-66) Band Neutrophils % 5 % (0-9) Lymphocytes % 13 % (24-48) Monocytes % 1 % (0-10) Toxic Granulation Slight Platelet Estimate Adequate (ADEQUATE) Sodium Level 143 mmol/L (136-145) Potassium Level 4.1 mmol/L (3.5-5.1) Chloride Level 105 mmol/L (98-107) Carbon Dioxide Level 28 mmol/L (21-32) Anion Gap 10 (6-14) Blood Urea Nitrogen 21 mg/dL (7-20) Creatinine 1.6 mg/dL (0.6-1.0) Estimated GFR (Cockcroft-Gault) 30.9 BUN/Creatinine Ratio 13 (6-20) Glucose Level 294 mg/dL (70-99) Calcium Level 9.0 mg/dL (8.5-10.1) Total Bilirubin 0.2 mg/dL (0.2-1.0) Aspartate Amino Transf (AST/SGOT) 34 U/L (15-37) Alanine Aminotransferase (ALT/SGPT) 24 U/L (14-59) Alkaline Phosphatase 79 U/L (46-116) Troponin I Quantitative 0.445 ng/mL (0.000-0.055) CQ-Odx-U-Type Natriuretic Peptide 392 pg/mL (0-449) Total Protein 8.1 g/dL (6.4-8.2) Albumin 3.0 g/dL (3.4-5.0) Albumin/Globulin Ratio 0.6 (1.0-1.7) Urine Collection Type U cath Urine Color Yellow Urine Clarity Clear Urine pH 5.5 (<5.0-8.0) Urine Specific [place] 1.020 (1.000-1.030) Urine Protein 100 mg/dL (NEG-TRACE) Urine Glucose (UA) Negative mg/dL (NEG) Urine Ketones (Stick) Negative mg/dL (NEG) Urine Blood Negative (NEG) Urine Nitrite Negative (NEG) Urine Bilirubin Negative (NEG) Urine Urobilinogen Dipstick 1.0 mg/dL (0.2 mg/dL) Urine Leukocyte Esterase Negative (NEG) Urine RBC Occ /HPF (0-2) Urine WBC Rare /HPF (0-4) Urine Transitional Epithelial Cells Occ /LPF Urine Bacteria 0 /HPF (0-FEW) Urine Hyaline Casts Few /HPF Urine Mucus Slight /LPF Influenza Type A Antigen Negative (NEGATIVE) Influenza Type B Antigen Negative (NEGATIVE) Group A Streptococcus Rapid Negative (NEGATIVE) O2 Saturation 96 % (92-99) Arterial Blood pH 7.33 (7.35-7.45) Arterial Blood pCO2 at Patient Temp 49 mmHg (35-46) Arterial Blood pO2 at Patient Temp 87 mmHg (65-108) Arterial Blood HCO3 26 mmol/L (21-28) Arterial Blood Base Excess -1 mmol/L (-3-3) FiO2 34 Test 04/21/20 03:25 04/21/20 06:11 04/21/20 10:15 Troponin I Quantitative 2.797 ng/mL (0.000-0.055) 2.939 ng/mL (0.000-0.055) White Blood Count 12.3 x10^3/uL (4.0-11.0) Red Blood Count 3.88 x10^6/uL (3.50-5.40) Hemoglobin 11.7 g/dL (12.0-15.5) Hematocrit 36.5 % (36.0-47.0) Mean Corpuscular Volume 94 fL (79-100) Mean Corpuscular Hemoglobin 30 pg (25-35) Mean Corpuscular Hemoglobin Concent 32 g/dL (31-37) Red Cell Distribution Width 14.0 % (11.5-14.5) Platelet Count 245 x10^3/uL (140-400) Neutrophils (%) (Auto) 92 % (31-73) Lymphocytes (%) (Auto) 3 % (24-48) Monocytes (%) (Auto) 5 % (0-9) Eosinophils (%) (Auto) 0 % (0-3) Basophils (%) (Auto) 1 % (0-3) Neutrophils # (Auto) 11.3 x10^3/uL (1.8-7.7) Lymphocytes # (Auto) 0.4 x10^3/uL (1.0-4.8) Monocytes # (Auto) 0.6 x10^3/uL (0.0-1.1) Eosinophils # (Auto) 0.0 x10^3/uL (0.0-0.7) Basophils # (Auto) 0.1 x10^3/uL (0.0-0.2) Prothrombin Time 15.8 SEC (11.7-14.0) Prothromb Time International Ratio 1.3 (0.8-1.1) D-Dimer (Alicia) 3.57 ug/mlFEU (0.00-0.50) Sodium Level 143 mmol/L (136-145) Potassium Level 4.4 mmol/L (3.5-5.1) Chloride Level 108 mmol/L (98-107) Carbon Dioxide Level 21 mmol/L (21-32) Anion Gap 14 (6-14) Blood Urea Nitrogen 25 mg/dL (7-20) Creatinine 1.5 mg/dL (0.6-1.0) Estimated GFR (Cockcroft-Gault) 33.3 Glucose Level 155 mg/dL (70-99) Calcium Level 8.5 mg/dL (8.5-10.1) Magnesium Level 1.7 mg/dL (1.8-2.4) Ferritin 4564 ng/mL (8-252) C-Reactive Protein, Quantitative 110.4 mg/L (0-3.3) Triglycerides Level 72 mg/dL (0-150) Cholesterol Level 137 mg/dL (0-200) LDL Cholesterol, Calculated 67 mg/dL (0-100) VLDL Cholesterol, Calculated 14 mg/dL (0-40) Non-HDL Cholesterol Calculated 81 mg/dL (0-129) HDL Cholesterol 56 mg/dL (40-60) Cholesterol/HDL Ratio 2.4 Thyroid Stimulating Hormone (TSH) 1.550 uIU/mL (0.358-3.74) O2 Saturation 94 % (92-99) Arterial Blood pH 7.34 (7.35-7.45) Arterial Blood pCO2 at Patient Temp 42 mmHg (35-46) Arterial Blood pO2 at Patient Temp 74 mmHg (65-108) Arterial Blood HCO3 22 mmol/L (21-28) Arterial Blood Base Excess -3 mmol/L (-3-3) Oxyhemoglobin 93.9 % Methemoglobin 0.3 % (0.0-1.9) Carbon Monoxide, Quantitative 0.2 % (0.0-1.9) FiO2 50% venti mask Laboratory Tests Test 04/20/20 21:20 04/20/20 22:15 04/20/20 22:21 04/20/20 23:35 White Blood Count 16.4 x10^3/uL (4.0-11.0) Red Blood Count 4.05 x10^6/uL (3.50-5.40) Hemoglobin 12.1 g/dL (12.0-15.5) Hematocrit 37.8 % (36.0-47.0) Mean Corpuscular Volume 93 fL (79-100) Mean Corpuscular Hemoglobin 30 pg (25-35) Mean Corpuscular Hemoglobin Concent 32 g/dL (31-37) Red Cell Distribution Width 13.9 % (11.5-14.5) Platelet Count 265 x10^3/uL (140-400) Neutrophils (%) (Auto) 84 % (31-73) Lymphocytes (%) (Auto) 10 % (24-48) Monocytes (%) (Auto) 5 % (0-9) Eosinophils (%) (Auto) 1 % (0-3) Basophils (%) (Auto) 0 % (0-3) Neutrophils # (Auto) 13.8 x10^3/uL (1.8-7.7) Lymphocytes # (Auto) 1.6 x10^3/uL (1.0-4.8) Monocytes # (Auto) 0.8 x10^3/uL (0.0-1.1) Eosinophils # (Auto) 0.1 x10^3/uL (0.0-0.7) Basophils # (Auto) 0.1 x10^3/uL (0.0-0.2) Segmented Neutrophils % 81 % (35-66) Band Neutrophils % 5 % (0-9) Lymphocytes % 13 % (24-48) Monocytes % 1 % (0-10) Toxic Granulation Slight Platelet Estimate Adequate (ADEQUATE) Sodium Level 143 mmol/L (136-145) Potassium Level 4.1 mmol/L (3.5-5.1) Chloride Level 105 mmol/L (98-107) Carbon Dioxide Level 28 mmol/L (21-32) Anion Gap 10 (6-14) Blood Urea Nitrogen 21 mg/dL (7-20) Creatinine 1.6 mg/dL (0.6-1.0) Estimated GFR (Cockcroft-Gault) 30.9 BUN/Creatinine Ratio 13 (6-20) Glucose Level 294 mg/dL (70-99) Calcium Level 9.0 mg/dL (8.5-10.1) Total Bilirubin 0.2 mg/dL (0.2-1.0) Aspartate Amino Transf (AST/SGOT) 34 U/L (15-37) Alanine Aminotransferase (ALT/SGPT) 24 U/L (14-59) Alkaline Phosphatase 79 U/L (46-116) Troponin I Quantitative 0.445 ng/mL (0.000-0.055) JG-Tzo-R-Type Natriuretic Peptide 392 pg/mL (0-449) Total Protein 8.1 g/dL (6.4-8.2) Albumin 3.0 g/dL (3.4-5.0) Albumin/Globulin Ratio 0.6 (1.0-1.7) Urine Collection Type U cath Urine Color Yellow Urine Clarity Clear Urine pH 5.5 (<5.0-8.0) Urine Specific [place] 1.020 (1.000-1.030) Urine Protein 100 mg/dL (NEG-TRACE) Urine Glucose (UA) Negative mg/dL (NEG) Urine Ketones (Stick) Negative mg/dL (NEG) Urine Blood Negative (NEG) Urine Nitrite Negative (NEG) Urine Bilirubin Negative (NEG) Urine Urobilinogen Dipstick 1.0 mg/dL (0.2 mg/dL) Urine Leukocyte Esterase Negative (NEG) Urine RBC Occ /HPF (0-2) Urine WBC Rare /HPF (0-4) Urine Transitional Epithelial Cells Occ /LPF Urine Bacteria 0 /HPF (0-FEW) Urine Hyaline Casts Few /HPF Urine Mucus Slight /LPF Influenza Type A Antigen Negative (NEGATIVE) Influenza Type B Antigen Negative (NEGATIVE) Group A Streptococcus Rapid Negative (NEGATIVE) O2 Saturation 96 % (92-99) Arterial Blood pH 7.33 (7.35-7.45) Arterial Blood pCO2 at Patient Temp 49 mmHg (35-46) Arterial Blood pO2 at Patient Temp 87 mmHg (65-108) Arterial Blood HCO3 26 mmol/L (21-28) Arterial Blood Base Excess -1 mmol/L (-3-3) FiO2 34 Test 04/21/20 03:25 04/21/20 06:11 04/21/20 10:15 Troponin I Quantitative 2.797 ng/mL (0.000-0.055) 2.939 ng/mL (0.000-0.055) White Blood Count 12.3 x10^3/uL (4.0-11.0) Red Blood Count 3.88 x10^6/uL (3.50-5.40) Hemoglobin 11.7 g/dL (12.0-15.5) Hematocrit 36.5 % (36.0-47.0) Mean Corpuscular Volume 94 fL (79-100) Mean Corpuscular Hemoglobin 30 pg (25-35) Mean Corpuscular Hemoglobin Concent 32 g/dL (31-37) Red Cell Distribution Width 14.0 % (11.5-14.5) Platelet Count 245 x10^3/uL (140-400) Neutrophils (%) (Auto) 92 % (31-73) Lymphocytes (%) (Auto) 3 % (24-48) Monocytes (%) (Auto) 5 % (0-9) Eosinophils (%) (Auto) 0 % (0-3) Basophils (%) (Auto) 1 % (0-3) Neutrophils # (Auto) 11.3 x10^3/uL (1.8-7.7) Lymphocytes # (Auto) 0.4 x10^3/uL (1.0-4.8) Monocytes # (Auto) 0.6 x10^3/uL (0.0-1.1) Eosinophils # (Auto) 0.0 x10^3/uL (0.0-0.7) Basophils # (Auto) 0.1 x10^3/uL (0.0-0.2) Prothrombin Time 15.8 SEC (11.7-14.0) Prothromb Time International Ratio 1.3 (0.8-1.1) D-Dimer (Alicia) 3.57 ug/mlFEU (0.00-0.50) Sodium Level 143 mmol/L (136-145) Potassium Level 4.4 mmol/L (3.5-5.1) Chloride Level 108 mmol/L (98-107) Carbon Dioxide Level 21 mmol/L (21-32) Anion Gap 14 (6-14) Blood Urea Nitrogen 25 mg/dL (7-20) Creatinine 1.5 mg/dL (0.6-1.0) Estimated GFR (Cockcroft-Gault) 33.3 Glucose Level 155 mg/dL (70-99) Calcium Level 8.5 mg/dL (8.5-10.1) Magnesium Level 1.7 mg/dL (1.8-2.4) Ferritin 4564 ng/mL (8-252) C-Reactive Protein, Quantitative 110.4 mg/L (0-3.3) Triglycerides Level 72 mg/dL (0-150) Cholesterol Level 137 mg/dL (0-200) LDL Cholesterol, Calculated 67 mg/dL (0-100) VLDL Cholesterol, Calculated 14 mg/dL (0-40) Non-HDL Cholesterol Calculated 81 mg/dL (0-129) HDL Cholesterol 56 mg/dL (40-60) Cholesterol/HDL Ratio 2.4 Thyroid Stimulating Hormone (TSH) 1.550 uIU/mL (0.358-3.74) O2 Saturation 94 % (92-99) Arterial Blood pH 7.34 (7.35-7.45) Arterial Blood pCO2 at Patient Temp 42 mmHg (35-46) Arterial Blood pO2 at Patient Temp 74 mmHg (65-108) Arterial Blood HCO3 22 mmol/L (21-28) Arterial Blood Base Excess -3 mmol/L (-3-3) Oxyhemoglobin 93.9 % Methemoglobin 0.3 % (0.0-1.9) Carbon Monoxide, Quantitative 0.2 % (0.0-1.9) FiO2 50% venti mask VTE Prophylaxis Ordered VTE Prophylaxis Devices: Yes VTE Pharmacological Prophylaxi: Yes Assessment/Plan Assessment/Plan ASSESSMENT Acute Hypoxic Resp Failure secondary to probable covid pna NSTEMI: CAD: S/P PCI Hx of lung CA with past radiation/chemo treatment Hypothyroidism HTN HLP Acute renal failure secondary to vasomotor nephropathy hypomag Leukocytosis PLAN trop 2.9 suspect demand mediated, type 2 continue supplemental 02 transfer to ICU given increased 02 requirements Pulm consult inflammatory markers elevated Consult pulmonary start on heparin drip. Continue plavix replace Mg cards consulted full code per chart dvt ppx: heparin drip prognosis guarded Justicifation of Admission Dx: Justifications for Admission: Justification of Admission Dx: Comment: (Pneumonia; elevated troponin) Problem Qualifiers (1) Pneumonia: Pneumonia type: due to unspecified organism Laterality: unspecified laterality Lung location: unspecified part of lung Qualified Codes: J18.9 - Pneumonia, unspecified organism ALEKSEY SHARMA MD Apr 21, 2020 15:47
[2020-04-21] MEDS: ATORVASTATIN CALCIUM 20 MG TABLET PO SCH (21:18)
[2020-04-21] MEDS ORDERED: BENZONATATE 100 MG CAPSULE. PO ONE (23:15)
[2020-04-22] VITALS (13 sets, daily range): BP systolic 124–156; BP diastolic 59–90
[2020-04-22 06:00] LABS: BASO % 0 % (0-3); EOS % 0 % (0-3); HEMATOCRIT 32.1 % (36.0-47.0); HEMOGLOBIN 10.5 g/dL (12.0-15.5); LYMPH % 7 % (24-48); MEAN CORPUSCULAR HEMOGLOBIN 30 pg (25-35); MEAN CORPUSCULAR HGB CONC 33 g/dL (31-37); MEAN CORPUSCULAR VOLUME 92 fL (79-100); MONO # 0.8 x10^3/uL (0.0-1.1); MONO % 6 % (0-9); NEUT % 87 % (31-73); PLATELET COUNT 195 x10^3/uL (140-400); RED BLOOD COUNT 3.48 x10^6/uL (3.50-5.40); RED CELL DISTRIBUTION WIDTH 13.9 % (11.5-14.5); WHITE BLOOD COUNT 13.8 x10^3/uL (4.0-11.0)
[2020-04-22] MEDS: AZITHROMYCIN 500 MG in IV NORMAL SALINE 250ML 250 ML IV SCH ×2 (06:00→06:06)
[2020-04-22] MEDS: cefTRIAXone IV Push 1 GM VIAL. IVP SCH (06:06)
[2020-04-22 06:26] LABS: ALBUMIN 2.3 g/dL (3.4-5.0); CALCIUM 9.2 mg/dL (8.5-10.1); CREATININE 1.4 mg/dL (0.6-1.0); DIRECT BILIRUBIN 0.1 mg/dL (0.0-0.2); GFR 36.1; POTASSIUM 3.6 mmol/L (3.5-5.1); TOTAL BILIRUBIN 0.3 mg/dL (0.2-1.0); TOTAL PROTEIN 6.7 g/dL (6.4-8.2)
[2020-04-22] MEDS ORDERED: ACETAMINOPHEN 500 MG TABLET PO PRN (06:45)
[2020-04-22] MEDS: CLOPIDOGREL BISULFATE 75 MG TABLET PO SCH (09:22)
[2020-04-22] MEDS: METOPROLOL SUCC 24HR ER 25 MG TAB.ER.24H. PO SCH (09:23)
[2020-04-22] MEDS: BENZONATATE 100 MG CAPSULE. PO SCH ×3 (09:23→19:48)
--- NOTE | 2020-04-22 09:37 | PDOC ---
PROGRESS NOTES Chief Complaint Chief Complaint seen in er with resp distress //79 yo female with hx CAD s/p PCI, lung cancer who presents with sob since 2 days ago reports non-productive cough. patient normally wears 3 liters of 02 at home. lives with son and daughter who alternate taking care of her. patient hard of hearing so hx difficult to obtain. per daughter, no chest pain, GI symptoms, anosmia. patients daughter's son works in a f[employer] and did have covid 1 month ago. daughter denies recent exposure though. patient seen on floor and on 15 liters. chest xray shows: Heart is not enl arged. Aortic calcifications are seen. Right hilar prominence and right upper lung opacities are again seen. Background of inte rstitial prominence. Patchy opacities are seen in the right mid and lower lung may represent superimposed consolidation. Small right pleural effusion. No pneumothorax. 50 plus years of tobacco use and has underlying COPD ///STOPPED SMOKIN 2016 New reticulonodular opacities in the basilar left lower lobe, 10/2019 ct chest new from prior study. Infectious or inflammatory process, however metastatic disease is also possible. History of Present Illness History of Present Illness VTE Prophylaxis Ordered VTE Prophylaxis Devices: Yes VTE Pharmacological Prophylaxi: Yes IMPRESSION Acute Hypoxic Resp Failure// neg covid 04/22 50 plus years of tobacco use and has underlying COPD NSTEMI: CAD: S/P PCI Hx of lung CA with past radiation/chemo treatment Hypothyroidism HTN HLP Acute renal failure secondary to vasomotor nephropathy hypomag Leukocytosis underweight PLAN trop 3.6 suspect demand mediated, type 2 continue supplemental 02 CONT ICU given increased 02 requirements Pulm following inflammatory markers elevated Consult pulmonary cont heparin drip. plavix replace Mg cards consulted full code per chart dvt ppx: heparin drip prognosis guarded ECHO 36 min cc time Justicifation of Admission Dx: Justicifation of Admission Dx: Justifications for Admission: Justification of Admission Dx: Comment: (Pneumonia; elevated troponin) Vitals Vitals Vital Signs Date Time Temp Pulse Resp B/P (MAP) Pulse Ox O2 Delivery O2 Flow Rate FiO2 04/22/20 09:23 134/74 04/22/20 06:00 118 28 91 Nasal Cannula 6.0 04/22/20 05:00 98.0 98.0 Physical Exam General: Alert, Oriented X3, Cooperative, No acute distress Heart: Regular rate, Other (sinus tachycardia) Lungs: Clear, Crackles Abdomen: Soft Extremities: No cyanosis, No edema Skin: No breakdown Labs LABS CT of the chest without contrast 11/27/2019 INDICATION: History of lung cancer. Three-month follow-up exam. COMPARISON STUDY: CT of the chest without contrast August 27, 2019. TECHNIQUE: Multidetector CT imaging of the chest was performed without contrast. FINDINGS: Redemonstration of right upper lobe volume loss and consolidation with associated bronchiectasis. The appearance is grossly similar. There has been interval increase in consolidation involving the lateral aspect of the right middle lobe extending along the fissure. New reticulonodular opacities are seen in the basilar left lower lobe. Severe centrilobular emphysematous changes throughout the bilateral lungs again noted. No pneumothorax is seen. Some fibrotic changes in the lung bases are noted. Similar small right pleural effusion noted. Limited visualization of the upper abdomen demonstrates no acute changes. Osteopenia noted. Thoracic compression deformities are similar. IMPRESSION: 1. Interval continued increase in subpleural thickening along the lateral, anterior fissure regions of the right middle lobe. This could represent progressive volume loss, though a malignant etiology cannot be excluded on the basis of this exam. 2. Multiple new reticulonodular opacities in the basilar left lower lobe, new from prior study. Infectious or inflammatory process, however metastatic disease is also possible. 3. Small right pleural effusion, similar to comparison study CT DOSING PQRS STATEMENT: One or more of the following individualized dose reduction techniques were utilized for this examination: 1. Automated exposure control 2. Adjustment of the mA and/or kV according to patient size 3. Use of iterative reconstruction technique Electronically signed by: Da Kang MD (11/27/2019 11:37 AM) [facility] DICTATED and SIGNED BY: DA KANG MD DATE: 11/27/19 1137 EXAM: LIMITED Two-dimensional and M-mode echocardiogram. Other Information Quality : Average HR: 98bpm Rhythm : NSR INDICATION Follow up PEF LEFT VENTRICLE The left ventricular systolic function is normal. GREAT VESSELS na PERICARDIAL EFFUSION There is a trace loculated anterior pericardial effusion. Critical Notification Critical Value: No <Conclusion> The left ventricular systolic function is normal. There is a trace loculated anterior pericardial effusion. Improved compared to echo 04/24/19 Signed by : Argelia Benson, Electronically Approved : 04/25/2019 09:57:21 DICTATED and SIGNED BY: ARGELIA BENSON MD DATE: 04/25/19 0957 Laboratory Tests Test 04/21/20 10:15 04/21/20 16:50 04/21/20 23:25 04/22/20 05:02 O2 Saturation 94 % (92-99) Arterial Blood pH 7.34 (7.35-7.45) Arterial Blood pCO2 at Patient Temp 42 mmHg (35-46) Arterial Blood pO2 at Patient Temp 74 mmHg (65-108) Arterial Blood HCO3 22 mmol/L (21-28) Arterial Blood Base Excess -3 mmol/L (-3-3) Oxyhemoglobin 93.9 % Methemoglobin 0.3 % (0.0-1.9) Carbon Monoxide, Quantitative 0.2 % (0.0-1.9) FiO2 50% venti mask Heparin Anti-Xa Act, Unfractionated 0.93 IU/mL (0.30-0.70) 0.45 IU/mL (0.30-0.70) 0.42 IU/mL (0.30-0.70) White Blood Count 13.8 x10^3/uL (4.0-11.0) Red Blood Count 3.48 x10^6/uL (3.50-5.40) Hemoglobin 10.5 g/dL (12.0-15.5) Hematocrit 32.1 % (36.0-47.0) Mean Corpuscular Volume 92 fL (79-100) Mean Corpuscular Hemoglobin 30 pg (25-35) Mean Corpuscular Hemoglobin Concent 33 g/dL (31-37) Red Cell Distribution Width 13.9 % (11.5-14.5) Platelet Count 195 x10^3/uL (140-400) Neutrophils (%) (Auto) 87 % (31-73) Lymphocytes (%) (Auto) 7 % (24-48) Monocytes (%) (Auto) 6 % (0-9) Eosinophils (%) (Auto) 0 % (0-3) Basophils (%) (Auto) 0 % (0-3) Neutrophils # (Auto) 12.0 x10^3/uL (1.8-7.7) Lymphocytes # (Auto) 1.0 x10^3/uL (1.0-4.8) Monocytes # (Auto) 0.8 x10^3/uL (0.0-1.1) Eosinophils # (Auto) 0.0 x10^3/uL (0.0-0.7) Basophils # (Auto) 0.0 x10^3/uL (0.0-0.2) Sodium Level 139 mmol/L (136-145) Potassium Level 3.6 mmol/L (3.5-5.1) Chloride Level 102 mmol/L (98-107) Carbon Dioxide Level 26 mmol/L (21-32) Anion Gap 11 (6-14) Blood Urea Nitrogen 26 mg/dL (7-20) Creatinine 1.4 mg/dL (0.6-1.0) Estimated GFR (Cockcroft-Gault) 36.1 Glucose Level 115 mg/dL (70-99) Calcium Level 9.2 mg/dL (8.5-10.1) Total Bilirubin 0.3 mg/dL (0.2-1.0) Direct Bilirubin 0.1 mg/dL (0.0-0.2) Aspartate Amino Transf (AST/SGOT) 53 U/L (15-37) Alanine Aminotransferase (ALT/SGPT) 30 U/L (14-59) Alkaline Phosphatase 58 U/L (46-116) Total Protein 6.7 g/dL (6.4-8.2) Albumin 2.3 g/dL (3.4-5.0) Assessment and Plan Assessmemt and Plan Problems Medical Problems: (1) Elevated troponin Status: Acute (2) Person under investigation for COVID-19 Status: Acute (3) Pneumonia Status: Acute Comment Review of Relevant I have reviewed the following items shirin (where applicable) has been applied. Labs Laboratory Tests Test 04/20/20 21:20 04/20/20 22:15 04/20/20 22:21 04/20/20 23:35 White Blood Count 16.4 x10^3/uL (4.0-11.0) Red Blood Count 4.05 x10^6/uL (3.50-5.40) Hemoglobin 12.1 g/dL (12.0-15.5) Hematocrit 37.8 % (36.0-47.0) Mean Corpuscular Volume 93 fL (79-100) Mean Corpuscular Hemoglobin 30 pg (25-35) Mean Corpuscular Hemoglobin Concent 32 g/dL (31-37) Red Cell Distribution Width 13.9 % (11.5-14.5) Platelet Count 265 x10^3/uL (140-400) Neutrophils (%) (Auto) 84 % (31-73) Lymphocytes (%) (Auto) 10 % (24-48) Monocytes (%) (Auto) 5 % (0-9) Eosinophils (%) (Auto) 1 % (0-3) Basophils (%) (Auto) 0 % (0-3) Neutrophils # (Auto) 13.8 x10^3/uL (1.8-7.7) Lymphocytes # (Auto) 1.6 x10^3/uL (1.0-4.8) Monocytes # (Auto) 0.8 x10^3/uL (0.0-1.1) Eosinophils # (Auto) 0.1 x10^3/uL (0.0-0.7) Basophils # (Auto) 0.1 x10^3/uL (0.0-0.2) Segmented Neutrophils % 81 % (35-66) Band Neutrophils % 5 % (0-9) Lymphocytes % 13 % (24-48) Monocytes % 1 % (0-10) Toxic Granulation Slight Platelet Estimate Adequate (ADEQUATE) Sodium Level 143 mmol/L (136-145) Potassium Level 4.1 mmol/L (3.5-5.1) Chloride Level 105 mmol/L (98-107) Carbon Dioxide Level 28 mmol/L (21-32) Anion Gap 10 (6-14) Blood Urea Nitrogen 21 mg/dL (7-20) Creatinine 1.6 mg/dL (0.6-1.0) Estimated GFR (Cockcroft-Gault) 30.9 BUN/Creatinine Ratio 13 (6-20) Glucose Level 294 mg/dL (70-99) Calcium Level 9.0 mg/dL (8.5-10.1) Total Bilirubin 0.2 mg/dL (0.2-1.0) Aspartate Amino Transf (AST/SGOT) 34 U/L (15-37) Alanine Aminotransferase (ALT/SGPT) 24 U/L (14-59) Alkaline Phosphatase 79 U/L (46-116) Troponin I Quantitative 0.445 ng/mL (0.000-0.055) KI-Liw-X-Type Natriuretic Peptide 392 pg/mL (0-449) Total Protein 8.1 g/dL (6.4-8.2) Albumin 3.0 g/dL (3.4-5.0) Albumin/Globulin Ratio 0.6 (1.0-1.7) Urine Collection Type U cath Urine Color Yellow Urine Clarity Clear Urine pH 5.5 (<5.0-8.0) Urine Specific Randolph 1.020 (1.000-1.030) Urine Protein 100 mg/dL (NEG-TRACE) Urine Glucose (UA) Negative mg/dL (NEG) Urine Ketones (Stick) Negative mg/dL (NEG) Urine Blood Negative (NEG) Urine Nitrite Negative (NEG) Urine Bilirubin Negative (NEG) Urine Urobilinogen Dipstick 1.0 mg/dL (0.2 mg/dL) Urine Leukocyte Esterase Negative (NEG) Urine RBC Occ /HPF (0-2) Urine WBC Rare /HPF (0-4) Urine Transitional Epithelial Cells Occ /LPF Urine Bacteria 0 /HPF (0-FEW) Urine Hyaline Casts Few /HPF Urine Mucus Slight /LPF Influenza Type A Antigen Negative (NEGATIVE) Influenza Type B Antigen Negative (NEGATIVE) Group A Streptococcus Rapid Negative (NEGATIVE) O2 Saturation 96 % (92-99) Arterial Blood pH 7.33 (7.35-7.45) Arterial Blood pCO2 at Patient Temp 49 mmHg (35-46) Arterial Blood pO2 at Patient Temp 87 mmHg (65-108) Arterial Blood HCO3 26 mmol/L (21-28) Arterial Blood Base Excess -1 mmol/L (-3-3) FiO2 34 Test 04/21/20 03:25 04/21/20 06:11 04/21/20 10:15 04/21/20 16:50 Troponin I Quantitative 2.797 ng/mL (0.000-0.055) 2.939 ng/mL (0.000-0.055) White Blood Count 12.3 x10^3/uL (4.0-11.0) Red Blood Count 3.88 x10^6/uL (3.50-5.40) Hemoglobin 11.7 g/dL (12.0-15.5) Hematocrit 36.5 % (36.0-47.0) Mean Corpuscular Volume 94 fL (79-100) Mean Corpuscular Hemoglobin 30 pg (25-35) Mean Corpuscular Hemoglobin Concent 32 g/dL (31-37) Red Cell Distribution Width 14.0 % (11.5-14.5) Platelet Count 245 x10^3/uL (140-400) Neutrophils (%) (Auto) 92 % (31-73) Lymphocytes (%) (Auto) 3 % (24-48) Monocytes (%) (Auto) 5 % (0-9) Eosinophils (%) (Auto) 0 % (0-3) Basophils (%) (Auto) 1 % (0-3) Neutrophils # (Auto) 11.3 x10^3/uL (1.8-7.7) Lymphocytes # (Auto) 0.4 x10^3/uL (1.0-4.8) Monocytes # (Auto) 0.6 x10^3/uL (0.0-1.1) Eosinophils # (Auto) 0.0 x10^3/uL (0.0-0.7) Basophils # (Auto) 0.1 x10^3/uL (0.0-0.2) Prothrombin Time 15.8 SEC (11.7-14.0) Prothromb Time International Ratio 1.3 (0.8-1.1) D-Dimer (Alicia) 3.57 ug/mlFEU (0.00-0.50) Sodium Level 143 mmol/L (136-145) Potassium Level 4.4 mmol/L (3.5-5.1) Chloride Level 108 mmol/L (98-107) Carbon Dioxide Level 21 mmol/L (21-32) Anion Gap 14 (6-14) Blood Urea Nitrogen 25 mg/dL (7-20) Creatinine 1.5 mg/dL (0.6-1.0) Estimated GFR (Cockcroft-Gault) 33.3 Glucose Level 155 mg/dL (70-99) Calcium Level 8.5 mg/dL (8.5-10.1) Magnesium Level 1.7 mg/dL (1.8-2.4) Ferritin 4564 ng/mL (8-252) C-Reactive Protein, Quantitative 110.4 mg/L (0-3.3) Triglycerides Level 72 mg/dL (0-150) Cholesterol Level 137 mg/dL (0-200) LDL Cholesterol, Calculated 67 mg/dL (0-100) VLDL Cholesterol, Calculated 14 mg/dL (0-40) Non-HDL Cholesterol Calculated 81 mg/dL (0-129) HDL Cholesterol 56 mg/dL (40-60) Cholesterol/HDL Ratio 2.4 Thyroid Stimulating Hormone (TSH) 1.550 uIU/mL (0.358-3.74) O2 Saturation 94 % (92-99) Arterial Blood pH 7.34 (7.35-7.45) Arterial Blood pCO2 at Patient Temp 42 mmHg (35-46) Arterial Blood pO2 at Patient Temp 74 mmHg (65-108) Arterial Blood HCO3 22 mmol/L (21-28) Arterial Blood Base Excess -3 mmol/L (-3-3) Oxyhemoglobin 93.9 % Methemoglobin 0.3 % (0.0-1.9) Carbon Monoxide, Quantitative 0.2 % (0.0-1.9) FiO2 50% venti mask Heparin Anti-Xa Act, Unfractionated 0.93 IU/mL (0.30-0.70) Test 04/21/20 23:25 04/22/20 05:02 Heparin Anti-Xa Act, Unfractionated 0.45 IU/mL (0.30-0.70) 0.42 IU/mL (0.30-0.70) White Blood Count 13.8 x10^3/uL (4.0-11.0) Red Blood Count 3.48 x10^6/uL (3.50-5.40) Hemoglobin 10.5 g/dL (12.0-15.5) Hematocrit 32.1 % (36.0-47.0) Mean Corpuscular Volume 92 fL (79-100) Mean Corpuscular Hemoglobin 30 pg (25-35) Mean Corpuscular Hemoglobin Concent 33 g/dL (31-37) Red Cell Distribution Width 13.9 % (11.5-14.5) Platelet Count 195 x10^3/uL (140-400) Neutrophils (%) (Auto) 87 % (31-73) Lymphocytes (%) (Auto) 7 % (24-48) Monocytes (%) (Auto) 6 % (0-9) Eosinophils (%) (Auto) 0 % (0-3) Basophils (%) (Auto) 0 % (0-3) Neutrophils # (Auto) 12.0 x10^3/uL (1.8-7.7) Lymphocytes # (Auto) 1.0 x10^3/uL (1.0-4.8) Monocytes # (Auto) 0.8 x10^3/uL (0.0-1.1) Eosinophils # (Auto) 0.0 x10^3/uL (0.0-0.7) Basophils # (Auto) 0.0 x10^3/uL (0.0-0.2) Sodium Level 139 mmol/L (136-145) Potassium Level 3.6 mmol/L (3.5-5.1) Chloride Level 102 mmol/L (98-107) Carbon Dioxide Level 26 mmol/L (21-32) Anion Gap 11 (6-14) Blood Urea Nitrogen 26 mg/dL (7-20) Creatinine 1.4 mg/dL (0.6-1.0) Estimated GFR (Cockcroft-Gault) 36.1 Glucose Level 115 mg/dL (70-99) Calcium Level 9.2 mg/dL (8.5-10.1) Total Bilirubin 0.3 mg/dL (0.2-1.0) Direct Bilirubin 0.1 mg/dL (0.0-0.2) Aspartate Amino Transf (AST/SGOT) 53 U/L (15-37) Alanine Aminotransferase (ALT/SGPT) 30 U/L (14-59) Alkaline Phosphatase 58 U/L (46-116) Total Protein 6.7 g/dL (6.4-8.2) Albumin 2.3 g/dL (3.4-5.0) Laboratory Tests Test 04/21/20 10:15 04/21/20 16:50 04/21/20 23:25 04/22/20 05:02 O2 Saturation 94 % (92-99) Arterial Blood pH 7.34 (7.35-7.45) Arterial Blood pCO2 at Patient Temp 42 mmHg (35-46) Arterial Blood pO2 at Patient Temp 74 mmHg (65-108) Arterial Blood HCO3 22 mmol/L (21-28) Arterial Blood Base Excess -3 mmol/L (-3-3) Oxyhemoglobin 93.9 % Methemoglobin 0.3 % (0.0-1.9) Carbon Monoxide, Quantitative 0.2 % (0.0-1.9) FiO2 50% venti mask Heparin Anti-Xa Act, Unfractionated 0.93 IU/mL (0.30-0.70) 0.45 IU/mL (0.30-0.70) 0.42 IU/mL (0.30-0.70) White Blood Count 13.8 x10^3/uL (4.0-11.0) Red Blood Count 3.48 x10^6/uL (3.50-5.40) Hemoglobin 10.5 g/dL (12.0-15.5) Hematocrit 32.1 % (36.0-47.0) Mean Corpuscular Volume 92 fL (79-100) Mean Corpuscular Hemoglobin 30 pg (25-35) Mean Corpuscular Hemoglobin Concent 33 g/dL (31-37) Red Cell Distribution Width 13.9 % (11.5-14.5) Platelet Count 195 x10^3/uL (140-400) Neutrophils (%) (Auto) 87 % (31-73) Lymphocytes (%) (Auto) 7 % (24-48) Monocytes (%) (Auto) 6 % (0-9) Eosinophils (%) (Auto) 0 % (0-3) Basophils (%) (Auto) 0 % (0-3) Neutrophils # (Auto) 12.0 x10^3/uL (1.8-7.7) Lymphocytes # (Auto) 1.0 x10^3/uL (1.0-4.8) Monocytes # (Auto) 0.8 x10^3/uL (0.0-1.1) Eosinophils # (Auto) 0.0 x10^3/uL (0.0-0.7) Basophils # (Auto) 0.0 x10^3/uL (0.0-0.2) Sodium Level 139 mmol/L (136-145) Potassium Level 3.6 mmol/L (3.5-5.1) Chloride Level 102 mmol/L (98-107) Carbon Dioxide Level 26 mmol/L (21-32) Anion Gap 11 (6-14) Blood Urea Nitrogen 26 mg/dL (7-20) Creatinine 1.4 mg/dL (0.6-1.0) Estimated GFR (Cockcroft-Gault) 36.1 Glucose Level 115 mg/dL (70-99) Calcium Level 9.2 mg/dL (8.5-10.1) Total Bilirubin 0.3 mg/dL (0.2-1.0) Direct Bilirubin 0.1 mg/dL (0.0-0.2) Aspartate Amino Transf (AST/SGOT) 53 U/L (15-37) Alanine Aminotransferase (ALT/SGPT) 30 U/L (14-59) Alkaline Phosphatase 58 U/L (46-116) Total Protein 6.7 g/dL (6.4-8.2) Albumin 2.3 g/dL (3.4-5.0) Medications Current Medications Ceftriaxone Sodium (Rocephin) 1 gm 1X ONCE IVP Last administered on 04/21/20 01:29; Start 04/21/20 at 00:30; Stop 04/21/20 at 00:31; Status DC Azithromycin 250 ml @ 250 mls/hr 1X ONCE IV Last administered on 04/21/20 01:30; Start 04/21/20 at 00:30; Stop 04/21/20 at 01:29; Status DC Ondansetron HCl (Zofran) 4 mg PRN Q8HRS PRN IV NAUSEA/VOMITING 1ST CHOICE Last administered on 04/21/20at 01:33; Start 04/21/20 at 00:15; Stop 04/22/20 at 00:14; Status DC Acetaminophen (Tylenol) 650 mg PRN Q4HRS PRN PO FEVER > 100.3'F; Start 04/21/20 at 00:15; Stop 04/22/20 at 00:14; Status DC Hydromorphone HCl (Dilaudid) 0.5 mg PRN Q2HRS PRN IV SEVERE PAIN 7-10 Last administered on 04/21/20at 01:32; Start 04/21/20 at 01:00 Sodium Chloride 500 ml @ 500 mls/hr 1X ONCE IV Last administered on 04/21/20 01:33; Start 04/21/20 at 02:00; Stop 04/21/20 at 02:59; Status DC Ceftriaxone Sodium (Rocephin) 1 gm Q24H IVP Last administered on 04/22/20at 06:06; Start 04/22/20 at 06:00 Azithromycin 500 mg/Sodium Chloride 250 ml @ 250 mls/hr Q24H IV ; Start 04/22/20 at 06:00 Enoxaparin Sodium (Lovenox Per Pharmacy Prophylaxis Dosing) 1 each PRN DAILY PRN MC SEE COMMENTS; Start 04/21/20 at 08:45; Stop 04/21/20 at 10:34; Status DC Enoxaparin Sodium (Lovenox 30mg Syringe) 30 mg Q24H SQ Last administered on 04/21/20at 09:35; Start 04/21/20 at 09:00; Stop 04/21/20 at 10:31; Status DC Heparin Sodium/ Dextrose 250 ml @ 5.832 mls/ hr CONT PRN IV PER PROTOCOL Last administered on 04/21/20at 09:58; Start 04/21/20 at 09:00 Heparin Sodium (Porcine) (Heparin Sodium) 1,200 unit PRN Q6HRS PRN IV FOR UFH LEVEL LESS THAN 0.2; Start 04/21/20 at 09:00 Clopidogrel Bisulfate (Plavix) 75 mg DAILYWBKFT PO Last administered on 04/22/20at 09:22; Start 04/22/20 at 08:00 Info (Anti-Coagulation Monitoring By Pharmacy) 1 each PRN DAILY PRN MC SEE COMMENTS; Start 04/21/20 at 09:00 Magnesium Sulfate 50 ml @ 25 mls/hr 1X ONCE IV Last administered on 04/21/20at 12:46; Start 04/21/20 at 13:00; Stop 04/21/20 at 14:59; Status DC Atorvastatin Calcium (Lipitor) 20 mg QHS PO Last administered on 04/21/20at 21:18; Start 04/21/20 at 21:00 Metoprolol Succinate (Toprol Xl) 25 mg DAILY PO Last administered on 04/22/20at 09:23; Start 04/22/20 at 09:00 Benzonatate (Tessalon Perle) 100 mg [id number] PO Last administered on 04/22/20at 09:23; Start 04/22/20 at 09:00 Benzonatate (Tessalon Perle) 100 mg 1X ONCE PO Last administered on 04/21/20at 23:28; Start 04/21/20 at 23:15; Stop 04/21/20 at 23:16; Status DC Acetaminophen (Tylenol) 500 mg PRN Q6HRS PRN PO MILD PAIN / TEMP > 100.3'F; Start 04/22/20 at 06:45 Active Scripts Active Clonidine Hcl 0.1 Mg Tablet 0.1 Mg PO BID PRN Take as needed for blood pressures greater than 185 systolic (top number) and/or 105 diastolic (bottom number). Gvyzga-Sffshejl-Oqsf 50-325-40 (Butalb/Acetaminophen/Caffeine) 1 Each Tablet 1 Each PO Q6HRS PRN Atorvastatin Calcium 20 Mg Tablet 20 Mg PO QHS 30 Days Clopidogrel (Clopidogrel Bisulfate) 75 Mg Tablet 75 Mg PO DAILYWBKFT 30 Days Vitamin B-12 (Cyanocobalamin (Vitamin B-12)) 1,000 Mcg Tablet 1,000 Mcg PO DAILY Reported Proair Hfa Inhaler (Albuterol Sulfate) 8.5 Gm Hfa.aer.ad 2 Puff IH PRN Q4-6HRS PRN 21 Days Mirtazapine 15 Mg Tablet 15 Mg PO DAILY Albuterol Sulfate Neb Soln (Albuterol Sulfate) 0.63 Mg/3 Ml Vial.neb 0.63 Mg NEB PRN Q4HRS PRN Theophylline (Theophylline Anhydrous) 400 Mg Tablet.er 200 Mg PO DAILY Prochlorperazine Maleate 10 Mg Tablet 1 Tab PO Q6HRS NITROGLYCERIN SubLingual (Nitroglycerin) 0.4 Mg Tab.subl 0.4 Mg SL PRN Q5MIN PRN Super B Maxi Complex Caplet (Vitamin B Complex/Folic Acid) 0.4 Mg Tablet 0.4 Mg PO DAILY Metoprolol Succinate ( Xl ) (Metoprolol Succinate) 25 Mg Tab.er.24h 25 Mg PO DAILY Isosorbide Mononitrate Er (Isosorbide Mononitrate) 30 Mg Tab.er.24h 30 Mg PO D AILY Hydromorphone Hcl 4 Mg Tablet 4 Mg PO Q6HRS PRN Ferrous Sulfate 325 Mg Tablet 325 Mg PO DAILY Vitamin D (Cholecalciferol (Vitamin D3)) 2,000 Unit Capsule 2,000 Unit PO BID Potassium Chloride 10 Meq Tablet.er 10 Meq PO DAILY Colace (Docusate Sodium) 100 Mg Capsule 100 Mg PO HS Nexium Capsule (Esomeprazole Magnesium) 40 Mg Capsule.dr 2 Cap PO DAILY Levothyroxine Sodium 75 Mcg Tablet 1 Tab PO DAILY Gabapentin (Gabapentin) 100 Mg Capsule 100 Mg PO HS Allopurinol 100 Mg Tablet 1 Tab PO DAILY Vitals/I & O Vital Sign - Last 24 Hours 04/21/20 04/21/20 04/21/20 04/21/20 10:35 11:00 11:30 12:04 Temp 99.5 98.5 99.5 98.5 Pulse 105 106 Resp B/P (MAP) 134/64 (87) 95/60 (72) Pulse Ox 96 97 O2 Delivery Venturi Mask Venturi Mask Venturi Mask Venturi Mask O2 Flow Rate 15.0 15.0 15.0 15.0 04/21/20 04/21/20 04/21/20 04/21/20 12:30 13:30 14:23 15:23 Temp 97.8 97.8 Pulse 104 109 104 110 Resp 29 B/P (MAP) 116/68 (84) 127/71 (89) 113/70 (84) 115/62 (79) Pulse Ox 98 96 97 95 O2 Delivery Venturi Mask Venturi Mask Venturi Mask Venturi Mask O2 Flow Rate 15.0 15.0 15.0 15.0 04/21/20 04/21/20 04/21/20 04/21/20 16:15 16:23 17:25 18:25 Pulse 109 108 110 Resp B/P (MAP) 105/66 (79) 121/75 (90) 115/61 (79) Pulse Ox 95 94 93 O2 Delivery Venturi Mask Venturi Mask Venturi Mask Nasal Cannula O2 Flow Rate 15.0 15.0 15.0 6.0 04/21/20 04/21/20 04/21/20 04/21/20 20:00 20:00 21:00 22:00 Temp 98.3 98.2 98.0 98.3 98.2 98.0 Pulse 110 112 112 Resp B/P (MAP) 119/72 (88) 138/78 (98) 136/76 (96) Pulse Ox 95 94 94 O2 Delivery Nasal Cannula Nasal Cannula Nasal Cannula Nasal Cannula O2 Flow Rate 6.0 6.0 6.0 6.0 04/22/20 04/22/20 04/22/20 04/22/20 00:00 00:01 01:00 02:00 Pulse 118 110 116 Resp 29 24 26 B/P (MAP) 156/82 (106) 127/59 (81) 136/81 (99) Pulse Ox 93 95 97 O2 Delivery Nasal Cannula Nasal Cannula Nasal Cannula Nasal Cannula O2 Flow Rate 6.0 6.0 6.0 6.0 04/22/20 04/22/20 04/22/20 04/22/20 03:00 04:00 04:00 05:00 Temp 98.0 98.0 Pulse 120 114 124 Resp 27 B/P (MAP) 129/80 (96) 135/80 (98) 156/77 (103) Pulse Ox 94 94 92 O2 Delivery Nasal Cannula Nasal Cannula Nasal Cannula Nasal Cannula O2 Flow Rate 6.0 6.0 6.0 6.0 04/22/20 04/22/20 06:00 09:23 Pulse 118 Resp 28 B/P (MAP) 134/74 (94) 134/74 Pulse Ox 91 O2 Delivery Nasal Cannula O2 Flow Rate 6.0 Intake and Output 04/21/20 04/21/20 04/22/20 15:00 23:00 07:00 Intake Total 400 ml 50 ml 394 ml Output Total 320 ml 160 ml 225 ml Balance 80 ml -110 ml 169 ml BUCK NUNES MD Apr 22, 2020 09:37
--- NOTE | 2020-04-22 10:04 | PDOC ---
TERRY MILLER BLUEPRINT MACHINE OPERATOR 04/22/20 1004: CARDIO Progress Notes Date and Time Date of Service 04/22/2020 Time of Evaluation 0950 Subjective Subjective: No Chest Pain, No shortness of breath Vitals Vitals Vital Signs Date Time Temp Pulse Resp B/P (MAP) Pulse Ox O2 Delivery O2 Flow Rate FiO2 04/22/20 09:23 134/74 04/22/20 06:00 118 28 91 Nasal Cannula 6.0 04/22/20 05:00 98.0 98.0 Weight Weight [ ] Input and Output Intake and Output Intake and Output 04/22/20 07:00 Intake Total 844 ml Output Total 705 ml Balance 139 ml Intake Oral 700 ml IV Total 144 ml Output Urine Total 705 ml # Bowel Movements 1 Laboratory Labs Laboratory Tests Test 04/21/20 10:15 04/21/20 16:50 04/21/20 23:25 04/22/20 05:02 O2 Saturation 94 % (92-99) Arterial Blood pH 7.34 (7.35-7.45) Arterial Blood pCO2 at Patient Temp 42 mmHg (35-46) Arterial Blood pO2 at Patient Temp 74 mmHg (65-108) Arterial Blood HCO3 22 mmol/L (21-28) Arterial Blood Base Excess -3 mmol/L (-3-3) Oxyhemoglobin 93.9 % Methemoglobin 0.3 % (0.0-1.9) Carbon Monoxide, Quantitative 0.2 % (0.0-1.9) FiO2 50% venti mask Heparin Anti-Xa Act, Unfractionated 0.93 IU/mL (0.30-0.70) 0.45 IU/mL (0.30-0.70) 0.42 IU/mL (0.30-0.70) White Blood Count 13.8 x10^3/uL (4.0-11.0) Red Blood Count 3.48 x10^6/uL (3.50-5.40) Hemoglobin 10.5 g/dL (12.0-15.5) Hematocrit 32.1 % (36.0-47.0) Mean Corpuscular Volume 92 fL (79-100) Mean Corpuscular Hemoglobin 30 pg (25-35) Mean Corpuscular Hemoglobin Concent 33 g/dL (31-37) Red Cell Distribution Width 13.9 % (11.5-14.5) Platelet Count 195 x10^3/uL (140-400) Neutrophils (%) (Auto) 87 % (31-73) Lymphocytes (%) (Auto) 7 % (24-48) Monocytes (%) (Auto) 6 % (0-9) Eosinophils (%) (Auto) 0 % (0-3) Basophils (%) (Auto) 0 % (0-3) Neutrophils # (Auto) 12.0 x10^3/uL (1.8-7.7) Lymphocytes # (Auto) 1.0 x10^3/uL (1.0-4.8) Monocytes # (Auto) 0.8 x10^3/uL (0.0-1.1) Eosinophils # (Auto) 0.0 x10^3/uL (0.0-0.7) Basophils # (Auto) 0.0 x10^3/uL (0.0-0.2) Sodium Level 139 mmol/L (136-145) Potassium Level 3.6 mmol/L (3.5-5.1) Chloride Level 102 mmol/L (98-107) Carbon Dioxide Level 26 mmol/L (21-32) Anion Gap 11 (6-14) Blood Urea Nitrogen 26 mg/dL (7-20) Creatinine 1.4 mg/dL (0.6-1.0) Estimated GFR (Cockcroft-Gault) 36.1 Glucose Level 115 mg/dL (70-99) Calcium Level 9.2 mg/dL (8.5-10.1) Total Bilirubin 0.3 mg/dL (0.2-1.0) Direct Bilirubin 0.1 mg/dL (0.0-0.2) Aspartate Amino Transf (AST/SGOT) 53 U/L (15-37) Alanine Aminotransferase (ALT/SGPT) 30 U/L (14-59) Alkaline Phosphatase 58 U/L (46-116) Total Protein 6.7 g/dL (6.4-8.2) Albumin 2.3 g/dL (3.4-5.0) Physical Exam HEENT: Other (very AMBLER) Chest: Symmetric LUNGS: Other (diminished) Heart: RRR (SR) Abdomen: Other (scaphoid abd) Extremities: No Calf Tenderness Neurology: alert, oriented, follow commands Assessment Assessment 1. NSTEMI: trop 2.9 suspect demand mediated, type 2 with underlying pneumonia. EKG SR with no significant changes by comparison. No CP 2. CAD: S/P PCI/RCA 03/2019 3. Pneumonia with AECOPD: pulmonary following 4. Suspecting Covid-19 with elevated inflammatory markers 5. Hx of lung CA with past radiation/chemo treatment 6. Hypothyroidism: on replacement 7. HTN: controlled 8. HLP: on goal 9. RENETTA 10. Sinus tachycardia: physiologic Recommendations 1. Awaiting covid test. venous doppler pending with elevated DDIMER. Recheck troponin 2. Heparin drip. Continue plavix. Replace Mg and K as warranted 3. Secondary prevention as tolerated. 4. Treat pulmonary issues, will consider for ischemic workup pending clinical course. TTE if neg for covid. supportive care otherwise. Justicifation of Admission Dx: Justifications for Admission: Justification of Admission Dx: Comment: (Pneumonia; elevated troponin) ARGELIA QUIROZ MD 04/22/20 1630: CARDIO Progress Notes Assessment Assessment Agree with POURED CONCRETE WALL TECHNICIAN's assessment and plan. Acute respiratory failure secondary to combination of acute COPD exacerbation/pneumonia/ARDS -treat per pulmonary team COVID test pending. Non-STEMI most probably demand ischemia. We will consider ischemic evaluation once active issues resolved. Telemetry did not show any significant arrhythmias. Continue heparin infusion per protocol. TERRY MILLER APRN Apr 22, 2020 10:04 ARGELIA QUIROZ MD Apr 22, 2020 16:30
--- NOTE | 2020-04-22 10:35 | PDOC ---
PULMONARY PROGRESS NOTES Vitals Vital Signs Date Time Temp Pulse Resp B/P (MAP) Pulse Ox O2 Delivery O2 Flow Rate FiO2 04/22/20 09:23 134/74 04/22/20 08:00 Nasal Cannula 6.0 04/22/20 06:00 118 28 91 04/22/20 05:00 98.0 98.0 Lungs: Clear Labs Laboratory Tests Test 04/20/20 21:20 04/20/20 22:15 04/20/20 22:21 04/20/20 23:35 White Blood Count 16.4 x10^3/uL (4.0-11.0) Red Blood Count 4.05 x10^6/uL (3.50-5.40) Hemoglobin 12.1 g/dL (12.0-15.5) Hematocrit 37.8 % (36.0-47.0) Mean Corpuscular Volume 93 fL (79-100) Mean Corpuscular Hemoglobin 30 pg (25-35) Mean Corpuscular Hemoglobin Concent 32 g/dL (31-37) Red Cell Distribution Width 13.9 % (11.5-14.5) Platelet Count 265 x10^3/uL (140-400) Neutrophils (%) (Auto) 84 % (31-73) Lymphocytes (%) (Auto) 10 % (24-48) Monocytes (%) (Auto) 5 % (0-9) Eosinophils (%) (Auto) 1 % (0-3) Basophils (%) (Auto) 0 % (0-3) Neutrophils # (Auto) 13.8 x10^3/uL (1.8-7.7) Lymphocytes # (Auto) 1.6 x10^3/uL (1.0-4.8) Monocytes # (Auto) 0.8 x10^3/uL (0.0-1.1) Eosinophils # (Auto) 0.1 x10^3/uL (0.0-0.7) Basophils # (Auto) 0.1 x10^3/uL (0.0-0.2) Segmented Neutrophils % 81 % (35-66) Band Neutrophils % 5 % (0-9) Lymphocytes % 13 % (24-48) Monocytes % 1 % (0-10) Toxic Granulation Slight Platelet Estimate Adequate (ADEQUATE) Sodium Level 143 mmol/L (136-145) Potassium Level 4.1 mmol/L (3.5-5.1) Chloride Level 105 mmol/L (98-107) Carbon Dioxide Level 28 mmol/L (21-32) Anion Gap 10 (6-14) Blood Urea Nitrogen 21 mg/dL (7-20) Creatinine 1.6 mg/dL (0.6-1.0) Estimated GFR (Cockcroft-Gault) 30.9 BUN/Creatinine Ratio 13 (6-20) Glucose Level 294 mg/dL (70-99) Calcium Level 9.0 mg/dL (8.5-10.1) Total Bilirubin 0.2 mg/dL (0.2-1.0) Aspartate Amino Transf (AST/SGOT) 34 U/L (15-37) Alanine Aminotransferase (ALT/SGPT) 24 U/L (14-59) Alkaline Phosphatase 79 U/L (46-116) Troponin I Quantitative 0.445 ng/mL (0.000-0.055) WS-Hnj-S-Type Natriuretic Peptide 392 pg/mL (0-449) Total Protein 8.1 g/dL (6.4-8.2) Albumin 3.0 g/dL (3.4-5.0) Albumin/Globulin Ratio 0.6 (1.0-1.7) Urine Collection Type U cath Urine Color Yellow Urine Clarity Clear Urine pH 5.5 (<5.0-8.0) Urine Specific [place] 1.020 (1.000-1.030) Urine Protein 100 mg/dL (NEG-TRACE) Urine Glucose (UA) Negative mg/dL (NEG) Urine Ketones (Stick) Negative mg/dL (NEG) Urine Blood Negative (NEG) Urine Nitrite Negative (NEG) Urine Bilirubin Negative (NEG) Urine Urobilinogen Dipstick 1.0 mg/dL (0.2 mg/dL) Urine Leukocyte Esterase Negative (NEG) Urine RBC Occ /HPF (0-2) Urine WBC Rare /HPF (0-4) Urine Transitional Epithelial Cells Occ /LPF Urine Bacteria 0 /HPF (0-FEW) Urine Hyaline Casts Few /HPF Urine Mucus Slight /LPF Influenza Type A Antigen Negative (NEGATIVE) Influenza Type B Antigen Negative (NEGATIVE) Group A Streptococcus Rapid Negative (NEGATIVE) O2 Saturation 96 % (92-99) Arterial Blood pH 7.33 (7.35-7.45) Arterial Blood pCO2 at Patient Temp 49 mmHg (35-46) Arterial Blood pO2 at Patient Temp 87 mmHg (65-108) Arterial Blood HCO3 26 mmol/L (21-28) Arterial Blood Base Excess -1 mmol/L (-3-3) FiO2 34 Test 04/21/20 03:25 04/21/20 06:11 04/21/20 10:15 04/21/20 16:50 Troponin I Quantitative 2.797 ng/mL (0.000-0.055) 2.939 ng/mL (0.000-0.055) White Blood Count 12.3 x10^3/uL (4.0-11.0) Red Blood Count 3.88 x10^6/uL (3.50-5.40) Hemoglobin 11.7 g/dL (12.0-15.5) Hematocrit 36.5 % (36.0-47.0) Mean Corpuscular Volume 94 fL (79-100) Mean Corpuscular Hemoglobin 30 pg (25-35) Mean Corpuscular Hemoglobin Concent 32 g/dL (31-37) Red Cell Distribution Width 14.0 % (11.5-14.5) Platelet Count 245 x10^3/uL (140-400) Neutrophils (%) (Auto) 92 % (31-73) Lymphocytes (%) (Auto) 3 % (24-48) Monocytes (%) (Auto) 5 % (0-9) Eosinophils (%) (Auto) 0 % (0-3) Basophils (%) (Auto) 1 % (0-3) Neutrophils # (Auto) 11.3 x10^3/uL (1.8-7.7) Lymphocytes # (Auto) 0.4 x10^3/uL (1.0-4.8) Monocytes # (Auto) 0.6 x10^3/uL (0.0-1.1) Eosinophils # (Auto) 0.0 x10^3/uL (0.0-0.7) Basophils # (Auto) 0.1 x10^3/uL (0.0-0.2) Prothrombin Time 15.8 SEC (11.7-14.0) Prothromb Time International Ratio 1.3 (0.8-1.1) D-Dimer (Alicia) 3.57 ug/mlFEU (0.00-0.50) Sodium Level 143 mmol/L (136-145) Potassium Level 4.4 mmol/L (3.5-5.1) Chloride Level 108 mmol/L (98-107) Carbon Dioxide Level 21 mmol/L (21-32) Anion Gap 14 (6-14) Blood Urea Nitrogen 25 mg/dL (7-20) Creatinine 1.5 mg/dL (0.6-1.0) Estimated GFR (Cockcroft-Gault) 33.3 Glucose Level 155 mg/dL (70-99) Calcium Level 8.5 mg/dL (8.5-10.1) Magnesium Level 1.7 mg/dL (1.8-2.4) Ferritin 4564 ng/mL (8-252) C-Reactive Protein, Quantitative 110.4 mg/L (0-3.3) Triglycerides Level 72 mg/dL (0-150) Cholesterol Level 137 mg/dL (0-200) LDL Cholesterol, Calculated 67 mg/dL (0-100) VLDL Cholesterol, Calculated 14 mg/dL (0-40) Non-HDL Cholesterol Calculated 81 mg/dL (0-129) HDL Cholesterol 56 mg/dL (40-60) Cholesterol/HDL Ratio 2.4 Thyroid Stimulating Hormone (TSH) 1.550 uIU/mL (0.358-3.74) O2 Saturation 94 % (92-99) Arterial Blood pH 7.34 (7.35-7.45) Arterial Blood pCO2 at Patient Temp 42 mmHg (35-46) Arterial Blood pO2 at Patient Temp 74 mmHg (65-108) Arterial Blood HCO3 22 mmol/L (21-28) Arterial Blood Base Excess -3 mmol/L (-3-3) Oxyhemoglobin 93.9 % Methemoglobin 0.3 % (0.0-1.9) Carbon Monoxide, Quantitative 0.2 % (0.0-1.9) FiO2 50% venti mask Heparin Anti-Xa Act, Unfractionated 0.93 IU/mL (0.30-0.70) Test 04/21/20 23:25 04/22/20 05:02 Heparin Anti-Xa Act, Unfractionated 0.45 IU/mL (0.30-0.70) 0.42 IU/mL (0.30-0.70) White Blood Count 13.8 x10^3/uL (4.0-11.0) Red Blood Count 3.48 x10^6/uL (3.50-5.40) Hemoglobin 10.5 g/dL (12.0-15.5) Hematocrit 32.1 % (36.0-47.0) Mean Corpuscular Volume 92 fL (79-100) Mean Corpuscular Hemoglobin 30 pg (25-35) Mean Corpuscular Hemoglobin Concent 33 g/dL (31-37) Red Cell Distribution Width 13.9 % (11.5-14.5) Platelet Count 195 x10^3/uL (140-400) Neutrophils (%) (Auto) 87 % (31-73) Lymphocytes (%) (Auto) 7 % (24-48) Monocytes (%) (Auto) 6 % (0-9) Eosinophils (%) (Auto) 0 % (0-3) Basophils (%) (Auto) 0 % (0-3) Neutrophils # (Auto) 12.0 x10^3/uL (1.8-7.7) Lymphocytes # (Auto) 1.0 x10^3/uL (1.0-4.8) Monocytes # (Auto) 0.8 x10^3/uL (0.0-1.1) Eosinophils # (Auto) 0.0 x10^3/uL (0.0-0.7) Basophils # (Auto) 0.0 x10^3/uL (0.0-0.2) Sodium Level 139 mmol/L (136-145) Potassium Level 3.6 mmol/L (3.5-5.1) Chloride Level 102 mmol/L (98-107) Carbon Dioxide Level 26 mmol/L (21-32) Anion Gap 11 (6-14) Blood Urea Nitrogen 26 mg/dL (7-20) Creatinine 1.4 mg/dL (0.6-1.0) Estimated GFR (Cockcroft-Gault) 36.1 Glucose Level 115 mg/dL (70-99) Calcium Level 9.2 mg/dL (8.5-10.1) Magnesium Level 2.2 mg/dL (1.8-2.4) Total Bilirubin 0.3 mg/dL (0.2-1.0) Direct Bilirubin 0.1 mg/dL (0.0-0.2) Aspartate Amino Transf (AST/SGOT) 53 U/L (15-37) Alanine Aminotransferase (ALT/SGPT) 30 U/L (14-59) Alkaline Phosphatase 58 U/L (46-116) Troponin I Quantitative 3.626 ng/mL (0.000-0.055) Total Protein 6.7 g/dL (6.4-8.2) Albumin 2.3 g/dL (3.4-5.0) Laboratory Tests Test 04/21/20 16:50 04/21/20 23:25 04/22/20 05:02 Heparin Anti-Xa Act, Unfractionated 0.93 IU/mL (0.30-0.70) 0.45 IU/mL (0.30-0.70) 0.42 IU/mL (0.30-0.70) White Blood Count 13.8 x10^3/uL (4.0-11.0) Red Blood Count 3.48 x10^6/uL (3.50-5.40) Hemoglobin 10.5 g/dL (12.0-15.5) Hematocrit 32.1 % (36.0-47.0) Mean Corpuscular Volume 92 fL (79-100) Mean Corpuscular Hemoglobin 30 pg (25-35) Mean Corpuscular Hemoglobin Concent 33 g/dL (31-37) Red Cell Distribution Width 13.9 % (11.5-14.5) Platelet Count 195 x10^3/uL (140-400) Neutrophils (%) (Auto) 87 % (31-73) Lymphocytes (%) (Auto) 7 % (24-48) Monocytes (%) (Auto) 6 % (0-9) Eosinophils (%) (Auto) 0 % (0-3) Basophils (%) (Auto) 0 % (0-3) Neutrophils # (Auto) 12.0 x10^3/uL (1.8-7.7) Lymphocytes # (Auto) 1.0 x10^3/uL (1.0-4.8) Monocytes # (Auto) 0.8 x10^3/uL (0.0-1.1) Eosinophils # (Auto) 0.0 x10^3/uL (0.0-0.7) Basophils # (Auto) 0.0 x10^3/uL (0.0-0.2) Sodium Level 139 mmol/L (136-145) Potassium Level 3.6 mmol/L (3.5-5.1) Chloride Level 102 mmol/L (98-107) Carbon Dioxide Level 26 mmol/L (21-32) Anion Gap 11 (6-14) Blood Urea Nitrogen 26 mg/dL (7-20) Creatinine 1.4 mg/dL (0.6-1.0) Estimated GFR (Cockcroft-Gault) 36.1 Glucose Level 115 mg/dL (70-99) Calcium Level 9.2 mg/dL (8.5-10.1) Magnesium Level 2.2 mg/dL (1.8-2.4) Total Bilirubin 0.3 mg/dL (0.2-1.0) Direct Bilirubin 0.1 mg/dL (0.0-0.2) Aspartate Amino Transf (AST/SGOT) 53 U/L (15-37) Alanine Aminotransferase (ALT/SGPT) 30 U/L (14-59) Alkaline Phosphatase 58 U/L (46-116) Troponin I Quantitative 3.626 ng/mL (0.000-0.055) Total Protein 6.7 g/dL (6.4-8.2) Albumin 2.3 g/dL (3.4-5.0) Medications Active Scripts Medications Dose Route/Sig Max Daily Dose Days Date Category Dose Instructions Proair Hfa Inhaler (Albuterol Sulfate) 8.5 Gm Hfa.aer.ad 2 Puff IH PRN Q4-6HRS PRN 21 04/21/20 Reported Mirtazapine 15 Mg Tablet 15 Mg PO DAILY 04/21/20 Reported Albuterol Sulfate Neb Soln (Albuterol Sulfate) 0.63 Mg/3 Ml Vial.neb 0.63 Mg NEB PRN Q4HRS PRN 04/21/20 Reported Clonidine Hcl 0.1 Mg Tablet 0.1 Mg PO BID PRN 06/30/19 Rx Take as needed for blood pressures greater than 185 systolic (top number) and/or 105 diastolic (bottom number). Evixro-Fazytueu-Oequ 50-325-40 (Butalb/Acetaminophen/Caffeine) 1 Each Tablet 1 Each PO Q6HRS PRN 06/30/19 Rx Atorvastatin Calcium 20 Mg Tablet 20 Mg PO QHS 30 04/25/19 Rx Clopidogrel (Clopidogrel Bisulfate) 75 Mg Tablet 75 Mg PO DAILYWBKFT 30 04/25/19 Rx Theophylline (Theophylline Anhydrous) 400 Mg Tablet.er 200 Mg PO DAILY 04/22/19 Reported Prochlorperazine Maleate 10 Mg Tablet 1 Tab PO Q6HRS 04/22/19 Reported NITROGLYCERIN SubLingual (Nitroglycerin) 0.4 Mg Tab.subl 0.4 Mg SL PRN Q5MIN PRN 04/22/19 Reported Super B Maxi Complex Caplet (Vitamin B Complex/Folic Acid) 0.4 Mg Tablet 0.4 Mg PO DAILY 04/22/19 Reported Metoprolol Succinate ( Xl ) (Metoprolol Succinate) 25 Mg Tab.er.24h 25 Mg PO DAILY 04/22/19 Reported Isosorbide Mononitrate Er (Isosorbide Mononitrate) 30 Mg Tab.er.24h 30 Mg PO DAILY 04/22/19 Reported Hydromorphone Hcl 4 Mg Tablet 4 Mg PO Q6HRS PRN 05/31/17 Reported Ferrous Sulfate 325 Mg Tablet 325 Mg PO DAILY 05/31/17 Reported Vitamin D (Cholecalciferol (Vitamin D3)) 2,000 Unit Capsule 2,000 Unit PO BID 05/31/17 Reported Potassium Chloride 10 Meq Tablet.er 10 Meq PO DAILY 05/31/17 Reported Colace (Docusate Sodium) 100 Mg Capsule 100 Mg PO HS 03/05/17 Reported Vitamin B-12 (Cyanocobalamin (Vitamin B-12)) 1,000 Mcg Tablet 1,000 Mcg PO DAILY 11/08/16 Rx Nexium Capsule (Esomeprazole Magnesium) 40 Mg Capsule.dr 2 Cap PO DAILY 05/08/16 Reported Levothyroxine Sodium 75 Mcg Tablet 1 Tab PO DAILY 05/08/16 Reported Gabapentin (Gabapentin) 100 Mg Capsule 100 Mg PO HS 05/08/16 Reported Allopurinol 100 Mg Tablet 1 Tab PO DAILY 05/08/16 Reported Impression . IMPRESSION: 1. Acute hypoxic respiratory failure secondary to combination of underlying chronic obstructive pulmonary disease with exacerbation, clinically suspected pneumonia and NSTMI 2. Abnormal chest x-ray with marked volume loss in the right upper lobe secondary to post-radiation changes related to her lung cancer and also some interstitial infiltrates, right lower lobe and left lung suggesting a pneumonia. 3. History of lung cancer diagnosed in 2016, status post radiation and chemo with marked volume loss in the right upper lobe related to tumor and radiation changes. She had a CT chest in 10/2019. At that time, she also had some new reticulonodular opacities in the left lower lobe, likely inflammatory. 4. Leukocytosis secondary to pneumonia. 5. Acute kidney injury. 6. Abnormal troponin suggesting non-ST myocardial infarction. 7. Abnormal D-dimer, which is a nonspecific thing. This could be related to underlying cancer. We will obtain Dopplers of lower extremities. Plan . SARS-CoV-2 negative Check venous Dopplers Continue broad-spectrum antibiotics 1. We will continue with present Venturi mask. Keep sats 92 and above. 2. We may add Vapotherm if clinically deteriorates versus BiPAP. 3. Continue present empiric antibiotics. 4. Plavix. 5. Venous Dopplers of lower extremities 6. Obtain an echocardiogram. 7. Follow Cardiology recommendation. 8. Heparin per protocol. 9. Broad-spectrum antibiotics. Critical care time 38 minutes. IVETTE CHO MD Apr 22, 2020 10:35
--- NOTE | 2020-04-22 13:23 | NUR ---
SS following for discharge planning. SS reviewed pt chart and discussed with pt RN. Pt is from home and is currently requiring oxygen. Pt has home oxygen at home. Pt COVID19 negative. Pt on IV Azithromycin and Zosyn. Pt transferring to CVC. SS will continue to follow for discharge planning.
[2020-04-22] MEDS: ATORVASTATIN CALCIUM 20 MG TABLET PO SCH (19:48)
[2020-04-23 02:22] VITALS: BP 154/85
[2020-04-23 05:38] LABS: ALBUMIN 2.5 g/dL (3.4-5.0); CALCIUM 9.2 mg/dL (8.5-10.1); CREATININE 1.2 mg/dL (0.6-1.0); GFR 43.1; PHOSPHORUS 3.5 mg/dL (2.6-4.7); POTASSIUM 3.8 mmol/L (3.5-5.1)
[2020-04-23] MEDS: HEPARIN 25,000UTS/250ML PREMIX 250 ML IV PRN ×2 (06:04→15:31)
[2020-04-23] MEDS: cefTRIAXone IV Push 1 GM VIAL. IVP SCH (06:05)
[2020-04-23 07:00] VITALS: BP 108/69
[2020-04-23 08:00] LABS: BASO % 0 % (0-3); EOS % 0 % (0-3); HEMATOCRIT 36.2 % (36.0-47.0); HEMOGLOBIN 11.8 g/dL (12.0-15.5); LYMPH # 0.7 x10^3/uL (1.0-4.8); LYMPH % 4 % (24-48); MEAN CORPUSCULAR HEMOGLOBIN 30 pg (25-35); MEAN CORPUSCULAR HGB CONC 33 g/dL (31-37); MEAN CORPUSCULAR VOLUME 92 fL (79-100); MONO # 0.7 x10^3/uL (0.0-1.1); MONO % 4 % (0-9); NEUT # 16.3 x10^3/uL (1.8-7.7); NEUT % 92 % (31-73); PLATELET COUNT 222 x10^3/uL (140-400); RED BLOOD COUNT 3.92 x10^6/uL (3.50-5.40); RED CELL DISTRIBUTION WIDTH 14.2 % (11.5-14.5); WHITE BLOOD COUNT 17.7 x10^3/uL (4.0-11.0)
[2020-04-23] MEDS: METOPROLOL SUCC 24HR ER 25 MG TAB.ER.24H. PO SCH (08:30)
[2020-04-23] MEDS: CLOPIDOGREL BISULFATE 75 MG TABLET PO SCH (08:30)
[2020-04-23] MEDS: BENZONATATE 100 MG CAPSULE. PO SCH ×3 (08:30→22:09)
--- NOTE | 2020-04-23 08:45 | PDOC ---
PROGRESS NOTES Chief Complaint Chief Complaint A/P: Acute Hypoxic Resp Failure// neg covid 04/22 50 plus years of tobacco use and has underlying COPD NSTEMI: CAD: S/P PCI Hx of lung CA with past radiation/chemo treatment Hypothyroidism HTN HLP Acute renal failure secondary to vasomotor nephropathy hypomag Leukocytosis Underweight PLAN trop 3.6 suspect demand mediated, type 2 continue supplemental 02 CONT ICU given increased 02 requirements Pulm following inflammatory markers elevated Consult pulmonary cont heparin drip. plavix replace Mg cards consulted full code per chart dvt ppx: heparin drip prognosis guarded ECHO 36 min History of Present Illness History of Present Illness Ms Trevino is an 79 yo female with hx CAD s/p PCI, lung cancer who presents with sob since 2 days ago reports non-productive cough. patient normally wears 3 liters of 02 at home. lives with son and daughter who alternate taking care of her. patient hard of hearing so hx difficult to obtain. per daughter, no chest pain, GI symptoms, anosmia. patients daughter's son works in a long term and did have covid 1 month ago. daughter denies recent exposure though. patient seen on floor and on 15 liters. chest xray shows: Heart is not enlarged. Aortic calcifications are seen. Right hilar prominence and right upper lung opacities are again seen. Background of interstitial prominence. Patchy opacities are seen in the right mid and lower lung may represent superimposed consolidation. Small right pleural effusion. No pneumothorax. 50 plus years of tobacco use and has underlying COPD ///STOPPED SMOKING 2016 New reticulonodular opacities in the basilar left lower lobe, 10/2019 ct chest new from prior study. Infectious or inflammatory process, however metastatic disease is also possible. She is still c/o substernal CP today and some bilateral LE swelling and pain. Afebrile, tachycardic, WBC now up to 17. Plan: Bilateral venous dopplers, concern for VTE Vitals Vitals Vital Signs Date Time Temp Pulse Resp B/P (MAP) Pulse Ox O2 Delivery O2 Flow Rate FiO2 04/23/20 08:30 114 108/69 04/23/20 07:00 98.0 24 95 Nasal Cannula 6.0 98.0 Physical Exam General: Alert, Oriented X3, Cooperative, No acute distress Heart: Regular rate, Other (sinus tachycardia) Lungs: Clear, Crackles Abdomen: Soft Extremities: No cyanosis, No edema Skin: No breakdown Labs LABS Laboratory Tests Test 04/23/20 04:18 04/23/20 07:40 Heparin Anti-Xa Act, Unfractionated < 0.10 IU/mL (0.30-0.70) Sodium Level 141 mmol/L (136-145) Potassium Level 3.8 mmol/L (3.5-5.1) Chloride Level 103 mmol/L (98-107) Carbon Dioxide Level 22 mmol/L (21-32) Anion Gap 16 (6-14) Blood Urea Nitrogen 27 mg/dL (7-20) Creatinine 1.2 mg/dL (0.6-1.0) Estimated GFR (Cockcroft-Gault) 43.1 Glucose Level 65 mg/dL (70-99) Calcium Level 9.2 mg/dL (8.5-10.1) Phosphorus Level 3.5 mg/dL (2.6-4.7) Troponin I Quantitative 1.252 ng/mL (0.000-0.055) Albumin 2.5 g/dL (3.4-5.0) White Blood Count 17.7 x10^3/uL (4.0-11.0) Red Blood Count 3.92 x10^6/uL (3.50-5.40) Hemoglobin 11.8 g/dL (12.0-15.5) Hematocrit 36.2 % (36.0-47.0) Mean Corpuscular Volume 92 fL (79-100) Mean Corpuscular Hemoglobin 30 pg (25-35) Mean Corpuscular Hemoglobin Concent 33 g/dL (31-37) Red Cell Distribution Width 14.2 % (11.5-14.5) Platelet Count 222 x10^3/uL (140-400) Neutrophils (%) (Auto) 92 % (31-73) Lymphocytes (%) (Auto) 4 % (24-48) Monocytes (%) (Auto) 4 % (0-9) Eosinophils (%) (Auto) 0 % (0-3) Basophils (%) (Auto) 0 % (0-3) Neutrophils # (Auto) 16.3 x10^3/uL (1.8-7.7) Lymphocytes # (Auto) 0.7 x10^3/uL (1.0-4.8) Monocytes # (Auto) 0.7 x10^3/uL (0.0-1.1) Eosinophils # (Auto) 0.0 x10^3/uL (0.0-0.7) Basophils # (Auto) 0.0 x10^3/uL (0.0-0.2) Assessment and Plan Assessmemt and Plan Problems Medical Problems: (1) Elevated troponin Status: Acute (2) Person under investigation for COVID-19 Status: Acute (3) Pneumonia Status: Acute Comment Review of Relevant I have reviewed the following items shirin (where applicable) has been applied. Labs Laboratory Tests Test 04/21/20 10:15 04/21/20 16:50 04/21/20 23:25 04/22/20 05:02 O2 Saturation 94 % (92-99) Arterial Blood pH 7.34 (7.35-7.45) Arterial Blood pCO2 at Patient Temp 42 mmHg (35-46) Arterial Blood pO2 at Patient Temp 74 mmHg (65-108) Arterial Blood HCO3 22 mmol/L (21-28) Arterial Blood Base Excess -3 mmol/L (-3-3) Oxyhemoglobin 93.9 % Methemoglobin 0.3 % (0.0-1.9) Carbon Monoxide, Quantitative 0.2 % (0.0-1.9) FiO2 50% venti mask Heparin Anti-Xa Act, Unfractionated 0.93 IU/mL (0.30-0.70) 0.45 IU/mL (0.30-0.70) 0.42 IU/mL (0.30-0.70) White Blood Count 13.8 x10^3/uL (4.0-11.0) Red Blood Count 3.48 x10^6/uL (3.50-5.40) Hemoglobin 10.5 g/dL (12.0-15.5) Hematocrit 32.1 % (36.0-47.0) Mean Corpuscular Volume 92 fL (79-100) Mean Corpuscular Hemoglobin 30 pg (25-35) Mean Corpuscular Hemoglobin Concent 33 g/dL (31-37) Red Cell Distribution Width 13.9 % (11.5-14.5) Platelet Count 195 x10^3/uL (140-400) Neutrophils (%) (Auto) 87 % (31-73) Lymphocytes (%) (Auto) 7 % (24-48) Monocytes (%) (Auto) 6 % (0-9) Eosinophils (%) (Auto) 0 % (0-3) Basophils (%) (Auto) 0 % (0-3) Neutrophils # (Auto) 12.0 x10^3/uL (1.8-7.7) Lymphocytes # (Auto) 1.0 x10^3/uL (1.0-4.8) Monocytes # (Auto) 0.8 x10^3/uL (0.0-1.1) Eosinophils # (Auto) 0.0 x10^3/uL (0.0-0.7) Basophils # (Auto) 0.0 x10^3/uL (0.0-0.2) Sodium Level 139 mmol/L (136-145) Potassium Level 3.6 mmol/L (3.5-5.1) Chloride Level 102 mmol/L (98-107) Carbon Dioxide Level 26 mmol/L (21-32) Anion Gap 11 (6-14) Blood Urea Nitrogen 26 mg/dL (7-20) Creatinine 1.4 mg/dL (0.6-1.0) Estimated GFR (Cockcroft-Gault) 36.1 Glucose Level 115 mg/dL (70-99) Calcium Level 9.2 mg/dL (8.5-10.1) Magnesium Level 2.2 mg/dL (1.8-2.4) Total Bilirubin 0.3 mg/dL (0.2-1.0) Direct Bilirubin 0.1 mg/dL (0.0-0.2) Aspartate Amino Transf (AST/SGOT) 53 U/L (15-37) Alanine Aminotransferase (ALT/SGPT) 30 U/L (14-59) Alkaline Phosphatase 58 U/L (46-116) Troponin I Quantitative 3.626 ng/mL (0.000-0.055) Total Protein 6.7 g/dL (6.4-8.2) Albumin 2.3 g/dL (3.4-5.0) Test 04/23/20 04:18 04/23/20 07:40 Heparin Anti-Xa Act, Unfractionated < 0.10 IU/mL (0.30-0.70) Sodium Level 141 mmol/L (136-145) Potassium Level 3.8 mmol/L (3.5-5.1) Chloride Level 103 mmol/L (98-107) Carbon Dioxide Level 22 mmol/L (21-32) Anion Gap 16 (6-14) Blood Urea Nitrogen 27 mg/dL (7-20) Creatinine 1.2 mg/dL (0.6-1.0) Estimated GFR (Cockcroft-Gault) 43.1 Glucose Level 65 mg/dL (70-99) Calcium Level 9.2 mg/dL (8.5-10.1) Phosphorus Level 3.5 mg/dL (2.6-4.7) Troponin I Quantitative 1.252 ng/mL (0.000-0.055) Albumin 2.5 g/dL (3.4-5.0) White Blood Count 17.7 x10^3/uL (4.0-11.0) Red Blood Count 3.92 x10^6/uL (3.50-5.40) Hemoglobin 11.8 g/dL (12.0-15.5) Hematocrit 36.2 % (36.0-47.0) Mean Corpuscular Volume 92 fL (79-100) Mean Corpuscular Hemoglobin 30 pg (25-35) Mean Corpuscular Hemoglobin Concent 33 g/dL (31-37) Red Cell Distribution Width 14.2 % (11.5-14.5) Platelet Count 222 x10^3/uL (140-400) Neutrophils (%) (Auto) 92 % (31-73) Lymphocytes (%) (Auto) 4 % (24-48) Monocytes (%) (Auto) 4 % (0-9) Eosinophils (%) (Auto) 0 % (0-3) Basophils (%) (Auto) 0 % (0-3) Neutrophils # (Auto) 16.3 x10^3/uL (1.8-7.7) Lymphocytes # (Auto) 0.7 x10^3/uL (1.0-4.8) Monocytes # (Auto) 0.7 x10^3/uL (0.0-1.1) Eosinophils # (Auto) 0.0 x10^3/uL (0.0-0.7) Basophils # (Auto) 0.0 x10^3/uL (0.0-0.2) Laboratory Tests Test 04/23/20 04:18 04/23/20 07:40 Heparin Anti-Xa Act, Unfractionated < 0.10 IU/mL (0.30-0.70) Sodium Level 141 mmol/L (136-145) Potassium Level 3.8 mmol/L (3.5-5.1) Chloride Level 103 mmol/L (98-107) Carbon Dioxide Level 22 mmol/L (21-32) Anion Gap 16 (6-14) Blood Urea Nitrogen 27 mg/dL (7-20) Creatinine 1.2 mg/dL (0.6-1.0) Estimated GFR (Cockcroft-Gault) 43.1 Glucose Level 65 mg/dL (70-99) Calcium Level 9.2 mg/dL (8.5-10.1) Phosphorus Level 3.5 mg/dL (2.6-4.7) Troponin I Quantitative 1.252 ng/mL (0.000-0.055) Albumin 2.5 g/dL (3.4-5.0) White Blood Count 17.7 x10^3/uL (4.0-11.0) Red Blood Count 3.92 x10^6/uL (3.50-5.40) Hemoglobin 11.8 g/dL (12.0-15.5) Hematocrit 36.2 % (36.0-47.0) Mean Corpuscular Volume 92 fL (79-100) Mean Corpuscular Hemoglobin 30 pg (25-35) Mean Corpuscular Hemoglobin Concent 33 g/dL (31-37) Red Cell Distribution Width 14.2 % (11.5-14.5) Platelet Count 222 x10^3/uL (140-400) Neutrophils (%) (Auto) 92 % (31-73) Lymphocytes (%) (Auto) 4 % (24-48) Monocytes (%) (Auto) 4 % (0-9) Eosinophils (%) (Auto) 0 % (0-3) Basophils (%) (Auto) 0 % (0-3) Neutrophils # (Auto) 16.3 x10^3/uL (1.8-7.7) Lymphocytes # (Auto) 0.7 x10^3/uL (1.0-4.8) Monocytes # (Auto) 0.7 x10^3/uL (0.0-1.1) Eosinophils # (Auto) 0.0 x10^3/uL (0.0-0.7) Basophils # (Auto) 0.0 x10^3/uL (0.0-0.2) Microbiology 04/20/20 Nose/Throat Culture - Preliminary, Resulted Medications Current Medications Ceftriaxone Sodium (Rocephin) 1 gm 1X ONCE IVP Last administered on 04/21/20at 01:29; Start 04/21/20 at 00:30; Stop 04/21/20 at 00:31; Status DC Azithromycin 250 ml @ 250 mls/hr 1X ONCE IV Last administered on 04/21/20at 01:30; Start 04/21/20 at 00:30; Stop 04/21/20 at 01:29; Status DC Ondansetron HCl (Zofran) 4 mg PRN Q8HRS PRN IV NAUSEA/VOMITING 1ST CHOICE Last administered on 04/21/20at 01:33; Start 04/21/20 at 00:15; Stop 04/22/20 at 00:14; Status DC Acetaminophen (Tylenol) 650 mg PRN Q4HRS PRN PO FEVER > 100.3'F; Start 04/21/20 at 00:15; Stop 04/22/20 at 00:14; Status DC Hydromorphone HCl (Dilaudid) 0.5 mg PRN Q2HRS PRN IV SEVERE PAIN 7-10 Last administered on 04/21/20at 01:32; Start 04/21/20 at 01:00 Sodium Chloride 500 ml @ 500 mls/hr 1X ONCE IV Last administered on 04/21/20at 01:33; Start 04/21/20 at 02:00; Stop 04/21/20 at 02:59; Status DC Ceftriaxone Sodium (Rocephin) 1 gm Q24H IVP Last administered on 04/23/20at 06:05; Start 04/22/20 at 06:00 Azithromycin 500 mg/Sodium Chloride 250 ml @ 250 mls/hr Q24H IV ; Start 04/22/20 at 06:00; Stop 04/22/20 at 13:29; Status DC Enoxaparin Sodium (Lovenox Per Pharmacy Prophylaxis Dosing) 1 each PRN DAILY PRN MC SEE COMMENTS; Start 04/21/20 at 08:45; Stop 04/21/20 at 10:34; Status DC Enoxaparin Sodium (Lovenox 30mg Syringe) 30 mg Q24H SQ Last administered on 04/21/20at 09:35; Start 04/21/20 at 09:00; Stop 04/21/20 at 10:31; Status DC Heparin Sodium/ Dextrose 250 ml @ 5.832 mls/ hr CONT PRN IV PER PROTOCOL Last administered on 04/23/20at 06:04; Start 04/21/20 at 09:00; Stop 04/23/20 at 08:31; Status DC Heparin Sodium (Porcine) (Heparin Sodium) 1,200 unit PRN Q6HRS PRN IV FOR UFH LEVEL LESS THAN 0.2 Last administered on 04/23/20at 06:15; Start 04/21/20 at 09:00; Stop 04/23/20 at 08:31; Status DC Clopidogrel Bisulfate (Plavix) 75 mg DAILYWBKFT PO Last administered on 04/23/20at 08:30; Start 04/22/20 at 08:00 Info (Anti-Coagulation Monitoring By Pharmacy) 1 each PRN DAILY PRN MC SEE COMMENTS Last administered on 04/22/20at 12:00; Start 04/21/20 at 09:00 Magnesium Sulfate 50 ml @ 25 mls/hr 1X ONCE IV Last administered on 04/21/20at 12:46; Start 04/21/20 at 13:00; Stop 04/21/20 at 14:59; Status DC Atorvastatin Calcium (Lipitor) 20 mg QHS PO Last administered on 04/22/20at 19:48; Start 04/21/20 at 21:00 Metoprolol Succinate (Toprol Xl) 25 mg DAILY PO Last administered on 04/23/20at 08:30; Start 04/22/20 at 09:00 Benzonatate (Tessalon Perle) 100 mg [id number] PO Last administered on 04/23/20at 08:30; Start 04/22/20 at 09:00 Benzonatate (Tessalon Perle) 100 mg 1X ONCE PO Last administered on 04/21/20at 23:28; Start 04/21/20 at 23:15; Stop 04/21/20 at 23:16; Status DC Acetaminophen (Tylenol) 500 mg PRN Q6HRS PRN PO MILD PAIN / TEMP > 100.3'F; Start 04/22/20 at 06:45 Active Scripts Active Clonidine Hcl 0.1 Mg Tablet 0.1 Mg PO BID PRN Take as needed for blood pressures greater than 185 systolic (top number) and/or 105 diastolic (bottom number). Awjufp-Xlegwpmn-Olow 50-325-40 (Butalb/Acetaminophen/Caffeine) 1 Each Tablet 1 Each PO Q6HRS PRN Atorvastatin Calcium 20 Mg Tablet 20 Mg PO QHS 30 Days Clopidogrel (Clopidogrel Bisulfate) 75 Mg Tablet 75 Mg PO DAILYWBKFT 30 Days Vitamin B-12 (Cyanocobalamin (Vitamin B-12)) 1,000 Mcg Tablet 1,000 Mcg PO DAILY Reported Proair Hfa Inhaler (Albuterol Sulfate) 8.5 Gm Hfa.aer.ad 2 Puff IH PRN Q4-6HRS PRN 21 Days Mirtazapine 15 Mg Tablet 15 Mg PO DAILY Albuterol Sulfate Neb Soln (Albuterol Sulfate) 0.63 Mg/3 Ml Vial.neb 0.63 Mg NEB PRN Q4HRS PRN Theophylline (Theophylline Anhydrous) 400 Mg Tablet.er 200 Mg PO DAILY Prochlorperazine Maleate 10 Mg Tablet 1 Tab PO Q6HRS NITROGLYCERIN SubLingual (Nitroglycerin) 0.4 Mg Tab.subl 0.4 Mg SL PRN Q5MIN PRN Super B Maxi Complex Caplet (Vitamin B Complex/Folic Acid) 0.4 Mg Tablet 0.4 Mg PO DAILY Metoprolol Succinate ( Xl ) (Metoprolol Succinate) 25 Mg Tab.er.24h 25 Mg PO DAILY Isosorbide Mononitrate Er (Isosorbide Mononitrate) 30 Mg Tab.er.24h 30 Mg PO DAILY Hydromorphone Hcl 4 Mg Tablet 4 Mg PO Q6HRS PRN Ferrous Sulfate 325 Mg Tablet 325 Mg PO DAILY Vitamin D (Cholecalciferol (Vitamin D3)) 2,000 Unit Capsule 2,000 Unit PO BID Potassium Chloride 10 Meq Tablet.er 10 Meq PO DAILY Colace (Docusate Sodium) 100 Mg Capsule 100 Mg PO HS Nexium Capsule (Esomeprazole Magnesium) 40 Mg Capsule.dr 2 Cap PO DAILY Levothyroxine Sodium 75 Mcg Tablet 1 Tab PO DAILY Gabapentin (Gabapentin) 100 Mg Capsule 100 Mg PO HS Allopurinol 100 Mg Tablet 1 Tab PO DAILY Vitals/I & O Vital Sign - Last 24 Hours 04/22/20 04/22/20 04/22/20 04/22/20 09:23 10:00 12:00 15:23 Temp 98.7 98.4 98.7 98.4 Pulse 116 108 111 Resp 28 28 18 B/P (MAP) 134/74 124/82 (96) 133/72 (92) 133/72 (92) Pulse Ox 94 92 93 O2 Delivery Nasal Cannula Nasal Cannula Nasal Cannula O2 Flow Rate 6.0 6.0 6.0 04/22/20 04/22/20 04/22/20 04/23/20 19:00 20:00 23:00 02:22 Temp 98.2 98.6 98.1 98.2 98.6 98.1 Pulse 114 114 112 Resp 18 18 24 B/P (MAP) 150/77 (101) 148/90 (109) 154/85 (108) Pulse Ox 94 93 97 O2 Delivery Nasal Cannula Nasal Cannula Nasal Cannula Nasal Cannula O2 Flow Rate 6.0 6.0 6.0 6.0 04/23/20 04/23/20 07:00 08:30 Temp 98.0 98.0 Pulse 114 114 Resp 24 B/P (MAP) 108/69 (82) 108/69 Pulse Ox 95 O2 Delivery Nasal Cannula O2 Flow Rate 6.0 Intake and Output 04/22/20 04/22/20 04/23/20 15:00 23:00 07:00 Intake Total 0 ml 605 ml Output Total 700 ml 350 ml Balance -700 ml 255 ml Nutrition Consultation Dietary Evaluation: Recommendations by RD: Dietary education by RD, Increase Calorie Intake, Protein supplementation Comments: REC continue regular diet, will add ensure enlive to meals Expected Outcomes/Goals: to meet >75% est nutr needs Malnutrition Findings: Body Fat Depletion (Non Severe: Mild Depletion Weight Status: Underweight DORA WOODSON MD Apr 23, 2020 08:45
--- NOTE | 2020-04-23 09:35 | PDOC ---
PULMONARY PROGRESS NOTES Subjective Patient not complaining of increasing cough or shortness of breath Vitals Vital Signs Date Time Temp Pulse Resp B/P (MAP) Pulse Ox O2 Delivery O2 Flow Rate FiO2 04/23/20 08:30 114 108/69 04/23/20 07:00 98.0 24 95 Nasal Cannula 6.0 98.0 Lungs: Clear, Crackles Cardiovascular: S1 Abdomen: Soft Neuro Exam: Alert Extremities: No Edema Skin: Warm Labs Laboratory Tests Test 04/21/20 10:15 04/21/20 16:50 04/21/20 23:25 04/22/20 05:02 O2 Saturation 94 % (92-99) Arterial Blood pH 7.34 (7.35-7.45) Arterial Blood pCO2 at Patient Temp 42 mmHg (35-46) Arterial Blood pO2 at Patient Temp 74 mmHg (65-108) Arterial Blood HCO3 22 mmol/L (21-28) Arterial Blood Base Excess -3 mmol/L (-3-3) Oxyhemoglobin 93.9 % Methemoglobin 0.3 % (0.0-1.9) Carbon Monoxide, Quantitative 0.2 % (0.0-1.9) FiO2 50% venti mask Heparin Anti-Xa Act, Unfractionated 0.93 IU/mL (0.30-0.70) 0.45 IU/mL (0.30-0.70) 0.42 IU/mL (0.30-0.70) White Blood Count 13.8 x10^3/uL (4.0-11.0) Red Blood Count 3.48 x10^6/uL (3.50-5.40) Hemoglobin 10.5 g/dL (12.0-15.5) Hematocrit 32.1 % (36.0-47.0) Mean Corpuscular Volume 92 fL (79-100) Mean Corpuscular Hemoglobin 30 pg (25-35) Mean Corpuscular Hemoglobin Concent 33 g/dL (31-37) Red Cell Distribution Width 13.9 % (11.5-14.5) Platelet Count 195 x10^3/uL (140-400) Neutrophils (%) (Auto) 87 % (31-73) Lymphocytes (%) (Auto) 7 % (24-48) Monocytes (%) (Auto) 6 % (0-9) Eosinophils (%) (Auto) 0 % (0-3) Basophils (%) (Auto) 0 % (0-3) Neutrophils # (Auto) 12.0 x10^3/uL (1.8-7.7) Lymphocytes # (Auto) 1.0 x10^3/uL (1.0-4.8) Monocytes # (Auto) 0.8 x10^3/uL (0.0-1.1) Eosinophils # (Auto) 0.0 x10^3/uL (0.0-0.7) Basophils # (Auto) 0.0 x10^3/uL (0.0-0.2) Sodium Level 139 mmol/L (136-145) Potassium Level 3.6 mmol/L (3.5-5.1) Chloride Level 102 mmol/L (98-107) Carbon Dioxide Level 26 mmol/L (21-32) Anion Gap 11 (6-14) Blood Urea Nitrogen 26 mg/dL (7-20) Creatinine 1.4 mg/dL (0.6-1.0) Estimated GFR (Cockcroft-Gault) 36.1 Glucose Level 115 mg/dL (70-99) Calcium Level 9.2 mg/dL (8.5-10.1) Magnesium Level 2.2 mg/dL (1.8-2.4) Total Bilirubin 0.3 mg/dL (0.2-1.0) Direct Bilirubin 0.1 mg/dL (0.0-0.2) Aspartate Amino Transf (AST/SGOT) 53 U/L (15-37) Alanine Aminotransferase (ALT/SGPT) 30 U/L (14-59) Alkaline Phosphatase 58 U/L (46-116) Troponin I Quantitative 3.626 ng/mL (0.000-0.055) Total Protein 6.7 g/dL (6.4-8.2) Albumin 2.3 g/dL (3.4-5.0) Test 04/23/20 04:18 04/23/20 07:40 Heparin Anti-Xa Act, Unfractionated < 0.10 IU/mL (0.30-0.70) Sodium Level 141 mmol/L (136-145) Potassium Level 3.8 mmol/L (3.5-5.1) Chloride Level 103 mmol/L (98-107) Carbon Dioxide Level 22 mmol/L (21-32) Anion Gap 16 (6-14) Blood Urea Nitrogen 27 mg/dL (7-20) Creatinine 1.2 mg/dL (0.6-1.0) Estimated GFR (Cockcroft-Gault) 43.1 Glucose Level 65 mg/dL (70-99) Calcium Level 9.2 mg/dL (8.5-10.1) Phosphorus Level 3.5 mg/dL (2.6-4.7) Troponin I Quantitative 1.252 ng/mL (0.000-0.055) Albumin 2.5 g/dL (3.4-5.0) White Blood Count 17.7 x10^3/uL (4.0-11.0) Red Blood Count 3.92 x10^6/uL (3.50-5.40) Hemoglobin 11.8 g/dL (12.0-15.5) Hematocrit 36.2 % (36.0-47.0) Mean Corpuscular Volume 92 fL (79-100) Mean Corpuscular Hemoglobin 30 pg (25-35) Mean Corpuscular Hemoglobin Concent 33 g/dL (31-37) Red Cell Distribution Width 14.2 % (11.5-14.5) Platelet Count 222 x10^3/uL (140-400) Neutrophils (%) (Auto) 92 % (31-73) Lymphocytes (%) (Auto) 4 % (24-48) Monocytes (%) (Auto) 4 % (0-9) Eosinophils (%) (Auto) 0 % (0-3) Basophils (%) (Auto) 0 % (0-3) Neutrophils # (Auto) 16.3 x10^3/uL (1.8-7.7) Lymphocytes # (Auto) 0.7 x10^3/uL (1.0-4.8) Monocytes # (Auto) 0.7 x10^3/uL (0.0-1.1) Eosinophils # (Auto) 0.0 x10^3/uL (0.0-0.7) Basophils # (Auto) 0.0 x10^3/uL (0.0-0.2) Laboratory Tests Test 04/23/20 04:18 04/23/20 07:40 Heparin Anti-Xa Act, Unfractionated < 0.10 IU/mL (0.30-0.70) Sodium Level 141 mmol/L (136-145) Potassium Level 3.8 mmol/L (3.5-5.1) Chloride Level 103 mmol/L (98-107) Carbon Dioxide Level 22 mmol/L (21-32) Anion Gap 16 (6-14) Blood Urea Nitrogen 27 mg/dL (7-20) Creatinine 1.2 mg/dL (0.6-1.0) Estimated GFR (Cockcroft-Gault) 43.1 Glucose Level 65 mg/dL (70-99) Calcium Level 9.2 mg/dL (8.5-10.1) Phosphorus Level 3.5 mg/dL (2.6-4.7) Troponin I Quantitative 1.252 ng/mL (0.000-0.055) Albumin 2.5 g/dL (3.4-5.0) White Blood Count 17.7 x10^3/uL (4.0-11.0) Red Blood Count 3.92 x10^6/uL (3.50-5.40) Hemoglobin 11.8 g/dL (12.0-15.5) Hematocrit 36.2 % (36.0-47.0) Mean Corpuscular Volume 92 fL (79-100) Mean Corpuscular Hemoglobin 30 pg (25-35) Mean Corpuscular Hemoglobin Concent 33 g/dL (31-37) Red Cell Distribution Width 14.2 % (11.5-14.5) Platelet Count 222 x10^3/uL (140-400) Neutrophils (%) (Auto) 92 % (31-73) Lymphocytes (%) (Auto) 4 % (24-48) Monocytes (%) (Auto) 4 % (0-9) Eosinophils (%) (Auto) 0 % (0-3) Basophils (%) (Auto) 0 % (0-3) Neutrophils # (Auto) 16.3 x10^3/uL (1.8-7.7) Lymphocytes # (Auto) 0.7 x10^3/uL (1.0-4.8) Monocytes # (Auto) 0.7 x10^3/uL (0.0-1.1) Eosinophils # (Auto) 0.0 x10^3/uL (0.0-0.7) Basophils # (Auto) 0.0 x10^3/uL (0.0-0.2) Medications Active Scripts Medications Dose Route/Sig Max Daily Dose Days Date Category Dose Instructions Proair Hfa Inhaler (Albuterol Sulfate) 8.5 Gm Hfa.aer.ad 2 Puff IH PRN Q4-6HRS PRN 21 04/21/20 Reported Mirtazapine 15 Mg Tablet 15 Mg PO DAILY 04/21/20 Reported Albuterol Sulfate Neb Soln (Albuterol Sulfate) 0.63 Mg/3 Ml Vial.neb 0.63 Mg NEB PRN Q4HRS PRN 04/21/20 Reported Clonidine Hcl 0.1 Mg Tablet 0.1 Mg PO BID PRN 06/30/19 Rx Take as needed for blood pressures greater than 185 systolic (top number) and/or 105 diastolic (bottom number). [id number]-Pwhw 50-325-40 (Butalb/Acetaminophen/Caffeine) 1 Each Tablet 1 Each PO Q6HRS PRN 06/30/19 Rx Atorvastatin Calcium 20 Mg Tablet 20 Mg PO QHS 30 04/25/19 Rx Clopidogrel (Clopidogrel Bisulfate) 75 Mg Tablet 75 Mg PO DAILYWBKFT 30 04/25/19 Rx Theophylline (Theophylline Anhydrous) 400 Mg Tablet.er 200 Mg PO DAILY 04/22/19 Reported Prochlorperazine Maleate 10 Mg Tablet 1 Tab PO Q6HRS 04/22/19 Reported NITROGLYCERIN SubLingual (Nitroglycerin) 0.4 Mg Tab.subl 0.4 Mg SL PRN Q5MIN PRN 04/22/19 Reported Super B Maxi Complex Caplet (Vitamin B Complex/Folic Acid) 0.4 Mg Tablet 0.4 Mg PO DAILY 04/22/19 Reported Metoprolol Succinate ( Xl ) (Metoprolol Succinate) 25 Mg Tab.er.24h 25 Mg PO DAILY 04/22/19 Reported Isosorbide Mononitrate Er (Isosorbide Mononitrate) 30 Mg Tab.er.24h 30 Mg PO DAILY 04/22/19 Reported Hydromorphone Hcl 4 Mg Tablet 4 Mg PO Q6HRS PRN 05/31/17 Reported Ferrous Sulfate 325 Mg Tablet 325 Mg PO DAILY 05/31/17 Reported Vitamin D (Cholecalciferol (Vitamin D3)) 2,000 Unit Capsule 2,000 Unit PO BID 05/31/17 Reported Potassium Chloride 10 Meq Tablet.er 10 Meq PO DAILY 05/31/17 Reported Colace (Docusate Sodium) 100 Mg Capsule 100 Mg PO HS 03/05/17 Reported Vitamin B-12 (Cyanocobalamin (Vitamin B-12)) 1,000 Mcg Tablet 1,000 Mcg PO DAILY 11/08/16 Rx Nexium Capsule (Esomeprazole Magnesium) 40 Mg Capsule.dr 2 Cap PO DAILY 05/08/16 Reported Levothyroxine Sodium 75 Mcg Tablet 1 Tab PO DAILY 05/08/16 Reported Gabapentin (Gabapentin) 100 Mg Capsule 100 Mg PO HS 05/08/16 Reported Allopurinol 100 Mg Tablet 1 Tab PO DAILY 05/08/16 Reported Impression . IMPRESSION: 1. Acute hypoxic respiratory failure secondary to combination of underlying chronic obstructive pulmonary disease with exacerbation, 2. Abnormal chest x-ray with marked volume loss in the right upper lobe secondary to post-radiation changes related to her lung cancer and also some interstitial infiltrates, right lower lobe and left lung suggesting a pneumonia. 3. History of lung cancer diagnosed in 2015, status post radiation and chemo with marked volume loss in the right upper lobe related to tumor and radiation changes. She had a CT chest in 10/2019. At that time, she also had some new reticulonodular opacities in the left lower lobe, likely inflammatory. 4. Leukocytosis secondary to pneumonia. 5. Acute kidney injury. 6. Abnormal troponin suggesting non-ST myocardial infarction. 7. Abnormal D-dimer, which is a nonspecific thing. This could be related to underlying cancer. We will obtain Dopplers of lower extremities. 8. Nonocclusive thrombus in the right popliteal vein Plan . Initiate PT OT SARS-CoV-2 negative Check venous Dopplers Continue broad-spectrum antibiotics I would not treat the nonocclusive thrombus in the right popliteal vein, recommend repeat lower extremity Dopplers, next week Anticoagulation per cardiology IVETTE CHO MD Apr 23, 2020 09:35
--- NOTE | 2020-04-23 10:14 | PDOC ---
TERRY MILLER TABLEAU DEVELOPER 04/23/20 1014: CARDIO Progress Notes Date and Time Date of Service 04/23/2020 Time of Evaluation 0950 Subjective Subjective: No Chest Pain, No shortness of breath Vitals Vitals Vital Signs Date Time Temp Pulse Resp B/P (MAP) Pulse Ox O2 Delivery O2 Flow Rate FiO2 04/23/20 08:30 114 108/69 04/23/20 07:00 98.0 24 95 Nasal Cannula 6.0 98.0 Weight Weight [ ] Input and Output Intake and Output Intake and Output 04/23/20 07:00 Intake Total 605 ml Output Total 1050 ml Balance -445 ml Intake Oral 575 ml Other 30 ml Output Urine Total 1050 ml Laboratory Labs Laboratory Tests Test 04/23/20 04:18 04/23/20 07:40 Heparin Anti-Xa Act, Unfractionated < 0.10 IU/mL (0.30-0.70) Sodium Level 141 mmol/L (136-145) Potassium Level 3.8 mmol/L (3.5-5.1) Chloride Level 103 mmol/L (98-107) Carbon Dioxide Level 22 mmol/L (21-32) Anion Gap 16 (6-14) Blood Urea Nitrogen 27 mg/dL (7-20) Creatinine 1.2 mg/dL (0.6-1.0) Estimated GFR (Cockcroft-Gault) 43.1 Glucose Level 65 mg/dL (70-99) Calcium Level 9.2 mg/dL (8.5-10.1) Phosphorus Level 3.5 mg/dL (2.6-4.7) Troponin I Quantitative 1.252 ng/mL (0.000-0.055) Albumin 2.5 g/dL (3.4-5.0) White Blood Count 17.7 x10^3/uL (4.0-11.0) Red Blood Count 3.92 x10^6/uL (3.50-5.40) Hemoglobin 11.8 g/dL (12.0-15.5) Hematocrit 36.2 % (36.0-47.0) Mean Corpuscular Volume 92 fL (79-100) Mean Corpuscular Hemoglobin 30 pg (25-35) Mean Corpuscular Hemoglobin Concent 33 g/dL (31-37) Red Cell Distribution Width 14.2 % (11.5-14.5) Platelet Count 222 x10^3/uL (140-400) Neutrophils (%) (Auto) 92 % (31-73) Lymphocytes (%) (Auto) 4 % (24-48) Monocytes (%) (Auto) 4 % (0-9) Eosinophils (%) (Auto) 0 % (0-3) Basophils (%) (Auto) 0 % (0-3) Neutrophils # (Auto) 16.3 x10^3/uL (1.8-7.7) Lymphocytes # (Auto) 0.7 x10^3/uL (1.0-4.8) Monocytes # (Auto) 0.7 x10^3/uL (0.0-1.1) Eosinophils # (Auto) 0.0 x10^3/uL (0.0-0.7) Basophils # (Auto) 0.0 x10^3/uL (0.0-0.2) Microbiology Micro Microbiology 04/20/20 Nose/Throat Culture - Preliminary, Resulted Physical Exam HEENT: Other (very [place]) Chest: Symmetric LUNGS: Other (diminished) Heart: RRR (SR) Abdomen: Other (scaphoid abd) Extremities: No Calf Tenderness Neurology: alert, oriented, follow commands Assessment Assessment 1. NSTEMI: trop peaked at 3.6 suspect demand mediated, type 2 with underlying pneumonia. EKG SR with no significant changes by comparison. No CP 2. CAD: S/P PCI/RCA 03/2019 3. Pneumonia with AECOPD: pulmonary following. Covid negative 4. Suspecting Covid-19 with elevated inflammatory markers 5. Hx of lung CA with past radiation/chemo treatment 6. Hypothyroidism: on replacement 7. HTN: controlled 8. HLP: on goal 9. RENETTA: Cr improved 10. Sinus tachycardia: physiologic, improved 11. R LLE noncclusive DVT: PE? Recommendations 1. Continue plavix. Continue heparin for now. 2. Replace Mg and K as warranted 3. Secondary prevention as tolerated. 4. Could not rule out associated ischemia. Awaiting TTE. Daughter is hesitant about MPI as father had a bad experience about iit but pt has not had any done. Pending if any significnat changes to EF then would plan for LHC unless pt has an ongoing PE. Awaiting input from pulmonary. Justicifation of Admission Dx: Justifications for Admission: Justification of Admission Dx: Comment: (Pneumonia; elevated troponin) ANKUSH QUIROZ MD 04/23/20 1836: CARDIO Progress Notes Assessment Assessment Patient seen and examined NSTEMI: trop peaked at 3.6 suspect demand mediated, type 2 with underlying pneumonia. EKG SR with no significant changes by comparison. No CP. Discussion regarding possible catheterization as below. At this time we will continue medical treatment. Further work-up regarding a possible PE in progress. Continue medical treatment. CAD: S/P PCI/RCA 03/2019 Pneumonia with AECOPD: pulmonary following. Covid negative Hx of lung CA with past radiation/chemo treatment RENETTA: Cr improved Sinus tachycardia: physiologic, improved R LLE noncclusive DVT: PE? TERRY MILLER APRN Apr 23, 2020 10:14 ANKUSH QUIROZ MD Apr 23, 2020 18:36
[2020-04-23 10:44] VITALS: BP 126/53
--- NOTE | 2020-04-23 11:54 | NUR ---
SS following up with discharge planning.SS reviewed pt chart and discussed with pt RN. Pt currently requiring oxygen. Pt has home oxygen at home. Pt on IV Rocephin. Per RN and physician pt not medically stable for discharge at this time. SS will continue to follow for discharge planning.
--- NOTE | 2020-04-23 12:52 | RAD ---
Bilateral lower extremity venous doppler ultrasound History: Lower extremity swelling Comparison: None Findings: Multiple grayscale, color, and duplex spectral analysis sonographic images were acquired of the bilateral lower extremity veins to evaluate for the presence of DVT. There is some nonocclusive abnormal echogenicity in the right popliteal vein. Otherwise remainder of the interrogated veins are patent bilaterally with normal phasicity and color-flow. Impression: 1. There is nonocclusive thrombus in the right popliteal vein. Critical results were discussed with patient's nurse Sheyla at 04/23/2020 12:49 PM. Electronically signed by: Narinder Brand MD (04/23/2020 12:50 PM) [id number]
--- NOTE | 2020-04-23 14:41 | CARD ---
MR#: [id number] Date of Study: 04/23/2020 Ordering Physician: TERRY MILLER, Referring Physician: TERRY MILLER Tech: Yudith Echevarria [facility] APPROVED REPORT EXAM: Two-dimensional and M-mode echocardiogram with Doppler and color Doppler. Other Information Quality : Technically Limited Technically limited study due to coughing/COPD INDICATION Non STEMI 2D DIMENSIONS RVDd2.3 (2.9-3.5cm)Left Atrium(2D)3.3 (1.6-4.0cm) IVSd0.7 (0.7-1.1cm)Aortic Root(2D)2.4 (2.0-3.7cm) LVDd3.1 (3.9-5.9cm)LVOT Diameter2.2 (1.8-2.4cm) PWd0.7 (0.7-1.1cm)LVDs2.3 (2.5-4.0cm) FS (%) 17.0 %SV19.9 ml LVEF(%)35.0 (>50%) Aortic Valve AoV Peak Jose.85.6cm/sAoV VTI14.0cm AO Peak GR.2.9mmHgLVOT Peak Jose.71.4cm/s LVOT VTI 14.49cmAO Mean GR.1mmHg DOUG (VMAX)3.00cz1SCX (VTI)3.88cm2 Mitral Valve MV E Gjxwlyva41.7cm/sMV DECEL [id number] MV A Nlarkntu09.0cm/sMV [id number] E/A Ratio0.9MVA (PHT)5.20cm2 TDI E/Lateral E'11.5E/Medial E'14.8 Tricuspid Valve TR P. Tsfgyfaj095kh/sRAP NATBCUOB1jbVf TR Peak Gr.19npAnOOFZ04ukEd LEFT VENTRICLE The left ventricle is normal size. There is normal left ventricular wall thickness. Left ventricle sy stolic function is severely impaired. The Ejection Fraction is 25-30%. The distal half of the LV is a kinetic. Tissue Doppler imaging reveals moderate left ventricular diastolic dysfunction. RIGHT VENTRICLE The right ventricle is normal size. The right ventricular systolic function is normal. ATRIA The left atrium size is normal. The right atrium size is normal. The interatrial septum is intact wit h no evidence for an atrial septal defect or patent foramen ovale as noted on 2-D or Doppler imaging. AORTIC VALVE The aortic valve is not well visualized. Doppler and Color Flow revealed no significant aortic regurg itation. There is no significant aortic valvular stenosis. MITRAL VALVE The mitral valve is calcified but opens well. There is no evidence of mitral valve prolapse. There is no mitral valve stenosis. Doppler and Color Flow revealed no mitral valve regurgitation noted. TRICUSPID VALVE The tricuspid valve is normal in structure and function. The PA pressure was estimated at 24 mmHg. Do ppler and Color Flow revealed no tricuspid valve regurgitation noted. There is no tricuspid valve flora nosis. PULMONIC VALVE The pulmonic valve is not well visualized. GREAT VESSELS The aortic root is normal in size. The ascending aorta is not well seen. The IVC was not visualized. PERICARDIAL EFFUSION There is no evidence of significant pericardial effusion. Critical Notification Critical Value: No <Conclusion> The distal half of the LV is akinetic. Left ventricle systolic function is severely impaired. The Ejection Fraction is 25-30%. Technically difficult study Signed by : Nelson Cardoza, Electronically Approved : 04/23/2020 14:40:57
[2020-04-23] MEDS ORDERED: ANTI-COAG MONITOR BY PHARMACY. MC PRN (15:30)
[2020-04-23] MEDS ORDERED: HEPARIN for IV BOLUS 10,000 UNIT/10 ML VIAL. IV PRN (15:30)
--- NOTE | 2020-04-23 17:47 | PDOC2 ---
CONSULT Date of Consult Date of Consult DATE: 04/23/20 TIME: 17:14 Reason for Consult Reason for Consult: Lung cancer, DVT. The patient was not physically seen. The following consult is based on chart review. Referring Physician Referring Physician: Dr. Nelson Roland. Identification/Chief Complaint Chief Complaint DVT. NSTEMI. History of lung cancer. Source Source: Chart review History of Present Illness Reason for Visit: 79 year-old female with history of lung cancer in 2016, s/p chemo and XRT. Last CT from 10/2019 showed increase in subpleural thickening in RML, multiple new reticulonodular opacities in LLL, new from 06/2019 CT, small right pleural effusion. The patient was in her usual state of health until few days [employer] when she developed progressive SOB. Jennifer was admitted on 04/20/2020.She was found to have NSTEMI, with troponin increasing from 0.4 on admission to 3.6 on 04/21/2020. Her admission CXR showed radiation related changes in RUL, new infiltrates in RML/RLL, concerning for pneumonia. The patient was started on Heparin drip, Plavix, Metoprolol, Zithromax, ceftriaxone. The patient had acute increase in her hypoxia with O2 sat 83-86% despite 15 L on Venti mask on 04/21/2020, with subsequent improvement to 96% on 6 L. Her tachycardia improved from 130 on admission to 114 currently. 04/23/2020 LE US showed nonocclusive thrombus in the right popliteal vein. Past Medical History Cardiovascular: CAD, CHF, HTN, Hyperlipidemia Pulmonary: COPD GI: Diverticulosis, GERD Heme/Onc: Cancer (lung NSCLCA with chemo and radiation) Psych: Depression Musculoskeletal: low back pain, Osteoarthritis ENT: Other (very [place]) Renal/: UTI, Other (interstitial cystitis) Endocrine: Osteoporosis Past Surgical History Past Surgical History: Hysterectomy, Other (PCI/JOEY to RCA; laminectomy; bladder sling) Family History Family History: No Significant Social History Quit ALCOHOL: none Drugs: None Lives: Alone Current Problem List Problem List Problems Medical Problems: (1) Elevated troponin Status: Acute (2) Person under investigation for COVID-19 Status: Acute (3) Pneumonia Status: Acute Current Medications Current Medications Current Medications Ceftriaxone Sodium (Rocephin) 1 gm 1X ONCE IVP Last administered on 04/21/20at 01:29; Start 04/21/20 at 00:30; Stop 04/21/20 at 00:31; Status DC Azithromycin 250 ml @ 250 mls/hr 1X ONCE IV Last administered on 04/21/20at 01:30; Start 04/21/20 at 00:30; Stop 04/21/20 at 01:29; Status DC Ondansetron HCl (Zofran) 4 mg PRN Q8HRS PRN IV NAUSEA/VOMITING 1ST CHOICE Last administered on 04/21/20at 01:33; Start 04/21/20 at 00:15; Stop 04/22/20 at 00:14; Status DC Acetaminophen (Tylenol) 650 mg PRN Q4HRS PRN PO FEVER > 100.3'F; Start 04/21/20 at 00:15; Stop 04/22/20 at 00:14; Status DC Hydromorphone HCl (Dilaudid) 0.5 mg PRN Q2HRS PRN IV SEVERE PAIN 7-10 Last administered on 04/21/20at 01:32; Start 04/21/20 at 01:00 Sodium Chloride 500 ml @ 500 mls/hr 1X ONCE IV Last administered on 04/21/20at 01:33; Start 04/21/20 at 02:00; Stop 04/21/20 at 02:59; Status DC Ceftriaxone Sodium (Rocephin) 1 gm Q24H IVP Last administered on 04/23/20at 06:05; Start 04/22/20 at 06:00 Azithromycin 500 mg/Sodium Chloride 250 ml @ 250 mls/hr Q24H IV ; Start 04/22/20 at 06:00; Stop 04/22/20 at 13:29; Status DC Enoxaparin Sodium (Lovenox Per Pharmacy Prophylaxis Dosing) 1 each PRN DAILY PRN MC SEE COMMENTS; Start 04/21/20 at 08:45; Stop 04/21/20 at 10:34; Status DC Enoxaparin Sodium (Lovenox 30mg Syringe) 30 mg Q24H SQ Last administered on 04/21/20at 09:35; Start 04/21/20 at 09:00; Stop 04/21/20 at 10:31; Status DC Heparin Sodium/ Dextrose 250 ml @ 5.832 mls/ hr CONT PRN IV PER PROTOCOL Last administered on 04/23/20 06:04; Start 04/21/20 at 09:00; Stop 04/23/20 at 08:31; Status DC Heparin Sodium (Porcine) (Heparin Sodium) 1,200 unit PRN Q6HRS PRN IV FOR UFH LEVEL LESS THAN 0.2 Last administered on 04/23/20 06:15; Start 04/21/20 at 09:00; Stop 04/23/20 at 08:31; Status DC Clopidogrel Bisulfate (Plavix) 75 mg DAILYWBKFT PO Last administered on 03/30 08:30; Start 04/22/20 at 08:00 Info (Anti-Coagulation Monitoring By Pharmacy) 1 each PRN DAILY PRN MC SEE COMMENTS Last administered on 04/22/20at 12:00; Start 04/21/20 at 09:00; Stop 04/23/20 at 09:56; Status DC Magnesium Sulfate 50 ml @ 25 mls/hr 1X ONCE IV Last administered on 04/21/20at 12:46; Start 04/21/20 at 13:00; Stop 04/21/20 at 14:59; Status DC Atorvastatin Calcium (Lipitor) 20 mg QHS PO Last administered on 04/22/20at 19:48; Start 04/21/20 at 21:00 Metoprolol Succinate (Toprol Xl) 25 mg DAILY PO Last administered on 04/23/20at 08:30; Start 04/22/20 at 09:00 Benzonatate (Tessalon Perle) 100 mg [id number] PO Last administered on 04/23/20at 08:30; Start 04/22/20 at 09:00 Benzonatate (Tessalon Perle) 100 mg 1X ONCE PO Last administered on 04/21/20at 23:28; Start 04/21/20 at 23:15; Stop 04/21/20 at 23:16; Status DC Acetaminophen (Tylenol) 500 mg PRN Q6HRS PRN PO MILD PAIN / TEMP > 100.3'F; Start 04/22/20 at 06:45 Heparin Sodium/ Dextrose 250 ml @ 5.832 mls/ hr CONT PRN IV PER PROTOCOL Last administered on 04/23/20at 15:31; Start 04/23/20 at 15:30 Heparin Sodium (Porcine) (Heparin Sodium) 1,200 unit PRN Q6HRS PRN IV FOR UFH LEVEL LESS THAN 0.2; Start 04/23/20 at 15:30 Info (Anti-Coagulation Monitoring By Pharmacy) 1 each PRN DAILY PRN MC SEE COMMENTS; Start 04/23/20 at 15:30 Doxycycline Hyclate 100 mg/ Dextrose 100 ml @ 50 mls/hr Q12HR IV ; Start 04/23/20 at 21:00 Active Scripts Active Clonidine Hcl 0.1 Mg Tablet 0.1 Mg PO BID PRN Take as needed for blood pressures greater than 185 systolic (top number) and/or 105 diastolic (bottom number). Allmco-Ppjfxxwj-Uqfl 50-325-40 (Butalb/Acetaminophen/Caffeine) 1 Each Tablet 1 Each PO Q6HRS PRN Atorvastatin Calcium 20 Mg Tablet 20 Mg PO QHS 30 Days Clopidogrel (Clopidogrel Bisulfate) 75 Mg Tablet 75 Mg PO DAILYWBKFT 30 Days Vitamin B-12 (Cyanocobalamin (Vitamin B-12)) 1,000 Mcg Tablet 1,000 Mcg PO DAILY Reported Proair Hfa Inhaler (Albuterol Sulfate) 8.5 Gm Hfa.aer.ad 2 Puff IH PRN Q4-6HRS PRN 21 Days Mirtazapine 15 Mg Tablet 15 Mg PO DAILY Albuterol Sulfate Neb Soln (Albuterol Sulfate) 0.63 Mg/3 Ml Vial.neb 0.63 Mg NEB PRN Q4HRS PRN Theophylline (Theophylline Anhydrous) 400 Mg Tablet.er 200 Mg PO DAILY Prochlorperazine Maleate 10 Mg Tablet 1 Tab PO Q6HRS NITROGLYCERIN SubLingual (Nitroglycerin) 0.4 Mg Tab.subl 0.4 Mg SL PRN Q5MIN PRN Super B Maxi Complex Caplet (Vitamin B Complex/Folic Acid) 0.4 Mg Tablet 0.4 Mg PO DAILY Metoprolol Succinate ( Xl ) (Metoprolol Succinate) 25 Mg Tab.er.24h 25 Mg PO DAILY Isosorbide Mononitrate Er (Isosorbide Mononitrate) 30 Mg Tab.er.24h 30 Mg PO DAILY Hydromorphone Hcl 4 Mg Tablet 4 Mg PO Q6HRS PRN Ferrous Sulfate 325 Mg Tablet 325 Mg PO DAILY Vitamin D (Cholecalciferol (Vitamin D3)) 2,000 Unit Capsule 2,000 Unit PO BID Potassium Chloride 10 Meq Tablet.er 10 Meq PO DAILY Colace (Docusate Sodium) 100 Mg Capsule 100 Mg PO HS Nexium Capsule (Esomeprazole Magnesium) 40 Mg Capsule.dr 2 Cap PO DAILY Levothyroxine Sodium 75 Mcg Tablet 1 Tab PO DAILY Gabapentin (Gabapentin) 100 Mg Capsule 100 Mg PO HS Allopurinol 100 Mg Tablet 1 Tab PO DAILY Allergies Allergies: Coded Allergies: aspirin (Verified Allergy, Intermediate, 05/08/16) codeine (Verified Allergy, Intermediate, 05/08/16) methocarbamol (Verified Allergy, Intermediate, 05/08/16) morphine (Verified Allergy, Intermediate, 05/08/16) Morphine Sulfate ER 15 mg oxycodone (Verified Allergy, Intermediate, 05/08/16) sulfamethoxazole (Verified Allergy, Intermediate, 05/08/16) tramadol (Verified Allergy, Intermediate, 05/08/16) trimethoprim (Verified Allergy, Intermediate, 05/08/16) ibuprofen (Verified Allergy, Mild, 04/22/20) Physical Exam Physical Exam No physical exam documented, as this consultation is based on chart review only. Vitals VITALS Vital Signs Date Time Temp Pulse Resp B/P (MAP) Pulse Ox O2 Delivery O2 Flow Rate FiO2 04/23/20 10:44 98.2 109 24 126/53 (77) 96 Nasal Cannula 6.0 98.2 Labs Labs Laboratory Tests Test 04/21/20 23:25 04/22/20 05:02 04/23/20 04:18 04/23/20 07:40 Heparin Anti-Xa Act, Unfractionated 0.45 IU/mL (0.30-0.70) 0.42 IU/mL (0.30-0.70) < 0.10 IU/mL (0.30-0.70) White Blood Count 13.8 x10^3/uL (4.0-11.0) 17.7 x10^3/uL (4.0-11.0) Red Blood Count 3.48 x10^6/uL (3.50-5.40) 3.92 x10^6/uL (3.50-5.40) Hemoglobin 10.5 g/dL (12.0-15.5) 11.8 g/dL (12.0-15.5) Hematocrit 32.1 % (36.0-47.0) 36.2 % (36.0-47.0) Mean Corpuscular Volume 92 fL (79-100) 92 fL (79-100) Mean Corpuscular Hemoglobin 30 pg (25-35) 30 pg (25-35) Mean Corpuscular Hemoglobin Concent 33 g/dL (31-37) 33 g/dL (31-37) Red Cell Distribution Width 13.9 % (11.5-14.5) 14.2 % (11.5-14.5) Platelet Count 195 x10^3/uL (140-400) 222 x10^3/uL (140-400) Neutrophils (%) (Auto) 87 % (31-73) 92 % (31-73) Lymphocytes (%) (Auto) 7 % (24-48) 4 % (24-48) Monocytes (%) (Auto) 6 % (0-9) 4 % (0-9) Eosinophils (%) (Auto) 0 % (0-3) 0 % (0-3) Basophils (%) (Auto) 0 % (0-3) 0 % (0-3) Neutrophils # (Auto) 12.0 x10^3/uL (1.8-7.7) 16.3 x10^3/uL (1.8-7.7) Lymphocytes # (Auto) 1.0 x10^3/uL (1.0-4.8) 0.7 x10^3/uL (1.0-4.8) Monocytes # (Auto) 0.8 x10^3/uL (0.0-1.1) 0.7 x10^3/uL (0.0-1.1) Eosinophils # (Auto) 0.0 x10^3/uL (0.0-0.7) 0.0 x10^3/uL (0.0-0.7) Basophils # (Auto) 0.0 x10^3/uL (0.0-0.2) 0.0 x10^3/uL (0.0-0.2) Sodium Level 139 mmol/L (136-145) 141 mmol/L (136-145) Potassium Level 3.6 mmol/L (3.5-5.1) 3.8 mmol/L (3.5-5.1) Chloride Level 102 mmol/L (98-107) 103 mmol/L (98-107) Carbon Dioxide Level 26 mmol/L (21-32) 22 mmol/L (21-32) Anion Gap 11 (6-14) 16 (6-14) Blood Urea Nitrogen 26 mg/dL (7-20) 27 mg/dL (7-20) Creatinine 1.4 mg/dL (0.6-1.0) 1.2 mg/dL (0.6-1.0) Estimated GFR (Cockcroft-Gault) 36.1 43.1 Glucose Level 115 mg/dL (70-99) 65 mg/dL (70-99) Calcium Level 9.2 mg/dL (8.5-10.1) 9.2 mg/dL (8.5-10.1) Magnesium Level 2.2 mg/dL (1.8-2.4) Total Bilirubin 0.3 mg/dL (0.2-1.0) Direct Bilirubin 0.1 mg/dL (0.0-0.2) Aspartate Amino Transf (AST/SGOT) 53 U/L (15-37) Alanine Aminotransferase (ALT/SGPT) 30 U/L (14-59) Alkaline Phosphatase 58 U/L (46-116) Troponin I Quantitative 3.626 ng/mL (0.000-0.055) 1.252 ng/mL (0.000-0.055) Total Protein 6.7 g/dL (6.4-8.2) Albumin 2.3 g/dL (3.4-5.0) 2.5 g/dL (3.4-5.0) Phosphorus Level 3.5 mg/dL (2.6-4.7) Test 04/23/20 12:30 Heparin Anti-Xa Act, Unfractionated < 0.10 IU/mL (0.30-0.70) Laboratory Tests Test 04/23/20 04:18 04/23/20 07:40 04/23/20 12:30 Heparin Anti-Xa Act, Unfractionated < 0.10 IU/mL (0.30-0.70) < 0.10 IU/mL (0.30-0.70) Sodium Level 141 mmol/L (136-145) Potassium Level 3.8 mmol/L (3.5-5.1) Chloride Level 103 mmol/L (98-107) Carbon Dioxide Level 22 mmol/L (21-32) Anion Gap 16 (6-14) Blood Urea Nitrogen 27 mg/dL (7-20) Creatinine 1.2 mg/dL (0.6-1.0) Estimated GFR (Cockcroft-Gault) 43.1 Glucose Level 65 mg/dL (70-99) Calcium Level 9.2 mg/dL (8.5-10.1) Phosphorus Level 3.5 mg/dL (2.6-4.7) Troponin I Quantitative 1.252 ng/mL (0.000-0.055) Albumin 2.5 g/dL (3.4-5.0) White Blood Count 17.7 x10^3/uL (4.0-11.0) Red Blood Count 3.92 x10^6/uL (3.50-5.40) Hemoglobin 11.8 g/dL (12.0-15.5) Hematocrit 36.2 % (36.0-47.0) Mean Corpuscular Volume 92 fL (79-100) Mean Corpuscular Hemoglobin 30 pg (25-35) Mean Corpuscular Hemoglobin Concent 33 g/dL (31-37) Red Cell Distribution Width 14.2 % (11.5-14.5) Platelet Count 222 x10^3/uL (140-400) Neutrophils (%) (Auto) 92 % (31-73) Lymphocytes (%) (Auto) 4 % (24-48) Monocytes (%) (Auto) 4 % (0-9) Eosinophils (%) (Auto) 0 % (0-3) Basophils (%) (Auto) 0 % (0-3) Neutrophils # (Auto) 16.3 x10^3/uL (1.8-7.7) Lymphocytes # (Auto) 0.7 x10^3/uL (1.0-4.8) Monocytes # (Auto) 0.7 x10^3/uL (0.0-1.1) Eosinophils # (Auto) 0.0 x10^3/uL (0.0-0.7) Basophils # (Auto) 0.0 x10^3/uL (0.0-0.2) Images Images 04/23/2020 Bilateral lower extremity venous doppler ultrasound History: Lower extremity swelling Comparison: None Multiple grayscale, color, and duplex spectral analysis sonographic images were acquired of the bilateral lower extremity veins to evaluate for the presence of DVT. There is some nonocclusive abnormal echogenicity in the right popliteal vein. Otherwise remainder of the interrogated veins are patent bilaterally with normal phasicity and color-flow. Impression: 1. There is nonocclusive thrombus in the right popliteal vein. 04/23/2020 CXR EXAM: AP View of the chest INDICATION: Reason: dyspnea / . Instructions: / History: COMPARISON: 06/30/2019 IMPRESSION: Heart is not enlarged. Aortic calcifications are seen. Right hilar prominence an d right upper lung opacities are again seen. Background of interstitial prominence. Patchy opacities are seen in the right mid and lower lung may represent superimposed consolidation. Small right pleural effusion. No pneumothorax. 11/27/2019 CT of the chest without contrast 11/27/2019 INDICATION: History of lung cancer. Three-month follow-up exam. COMPARISON STUDY: CT of the chest without contrast August 27, 2019. Redemonstration of right upper lobe volume loss and consolidation with associated bronchiectasis. The appearance is grossly similar. There has been interval increase in consolidation involving the lateral aspect of the right middle lobe extending along the fissure. New reticulonodular opacities are seen in the basilar left lower lobe. Severe centrilobular emphysematous changes throughout the bilateral lungs again noted. No pneumothorax is seen. Some fibrotic changes in the lung bases are noted. Similar small right pleural effusion noted. Limited visualization of the upper abdomen demonstrates no acute changes. Osteopenia noted. Thoracic compression deformities are similar. IMPRESSION: 1. Interval continued increase in subpleural thickening along the lateral, anterior fissure regions of the right middle lobe. This could represent p rogressive volume loss, though a malignant etiology cannot be excluded on the basis of this exam. 2. Multiple new reticulonodular opacities in the basilar left lower lobe, new from prior study. Infectious or inflammatory process, however metastatic disease is also possible. 3. Small right pleural effusion, similar to comparison study. 08/27/19 CT CHEST WO CONTRAST Indication: Lung cancer, posttreatment Comparison: February 18, 2019 There is persistent abnormal right apical density with associated bronchiectasis and some adjacent calcifications overall unchanged in appearance. Largest area of density measures about 6.3 cm transverse by 7.9 cm AP by about 7.2 cm CC. There is similar appearance of density extending along the right mediastinal border along the right trachea and right perihilar region. There is again emphysema. Small 0.3 cm superior left lower lobe nodule image 14 series 2 is unchanged. Right lower lobe nodule near the fissure image 28 series 2 about 0.7 cm is similar. There is new focus of more confluent density of the inferolateral right hemithorax abutting the pleural surface images 33-37 series 2 about 1.8 cm AP by 1.2 cm transverse by about 2 cm CC. Small quantity of right pleural fluid more localized near the lung base is similar. There is no new left pleural fluid. There is no pneumothorax. There is coronary calcification. Thoracic aortic caliber is within normal limits, scattered plaque. There is calcified plaque near the origin of the superior mesenteric artery with likely degree of stenosis, likely mild narrowing near the origin of the celiac artery. There is bone demineralization. There has been development of more central compression deformity of T5, similar superior height loss T2. IMPRESSION: 1. Comparing with the January 2019 exam, there is new focus of density abutting the pleural surface of the inferolateral right hemithorax. This could be due to infiltrate/atelectasis although new mass difficult to exclude in this region for which short-term follow-up in 3 months advised. Abnormal right apical density extending to the right hilar and mediastinal region is similar in appearance. Small right pleural effusion localized near the lung base is similar. 2. There is emphysema. 3. There is coronary calcification. 4. There has been interval development of T5 compression deformity. There is bone demineralization. Assessment/Plan Assessment/Plan ASSESSMENT: 79 year-old female with history of lung cancer in 2016, s/p chemo and XRT. Admitted with progressive hypoxia, NSTEMI, probable pneumonia, non-occlusive DVT. It would be important to anticoagulate this patient with newly diagnosed DVT. Consider switching from heparin drip to Eliquis after angiogram. Recent episode of rapid worsening of hypoxia and significant tachycardia in this patient with DVT are concerning for possible PE. CT PE sequence would also help to assess the status of patient's lung cancer, in view of new changes on prior CT and progressive hypoxia. PLAN: 1. CT PE sequence, next available. 2. Switch from heparin drip to Eliquis after angiogram, if okay with cardiology and hospitalist teams. 3. Will follow the patient and plan to schedule appointment as outpatient. Thank you for the opportunity to see your patient. Please call with any questions. Alli Shay MD. [phone] DAVID SHAY MD Apr 23, 2020 17:46
--- NOTE | 2020-04-23 18:52 | NUR ---
Page sent to MD Sandra in regards to patients CTA. CT notified report writer that her CT needed clearance due to kidney labs. No return of call report given to car shifter.
[2020-04-23 19:00] VITALS: BP 120/74
[2020-04-23] MEDS: ATORVASTATIN CALCIUM 20 MG TABLET PO SCH (22:09)
[2020-04-23] MEDS: DOXYCYCLINE HYCLATE 100 MG in IV DEXTROSE 5% 100ML 100 ML IV SCH (22:10)
[2020-04-23 23:18] VITALS: BP 168/92
[2020-04-23] MEDS ORDERED: IOHEXOL 350 MG/ML 100 ML VIAL. IV ONE (23:45)
[2020-04-23] MEDS ORDERED: CONTRAST GIVEN. MC PRN (23:45)
--- NOTE | 2020-04-24 00:52 | RAD ---
Examination: CT angiography chest HISTORY: History of lung cancer, pulmonary embolus, DVT COMPARISON: 11/27/2019 TECHNIQUE: Axial CT angiographic images of chest were performed with IV contrast. Coronal and sagittal 3-D MIP reformats are performed Exposure: One or more of the following individualized dose reduction techniques were utilized for this examination: 1. Automated exposure control 2. Adjustment of the mA and/or kV according to patient size 3. Use of iterative reconstruction technique FINDINGS: Moderate aortic atherosclerosis. The heart size grossly appears unremarkable. There is no evidence of filling defect identified in the main pulmonary arterial trunk and right and left main pulmonary arteries and the visualized lobar, segmental branches of the pulmonary arteries. Persistent abnormal right apical density with associated bronchiectasis identified surrounding the right upper lobe bronchus and extending peripherally. Moderate airspace opacity identified in the right lung base slightly increased since prior exam with 2 small bilateral pleural effusions. Subpleural thickening is identified in the right middle lobe of the lung. Severe bilateral lung emphysematous changes. Patchy airspace opacities identified in the bilateral lungs. The visualized liver, spleen, adrenals grossly appears unremarkable. Moderate degenerative changes thoracic spine. Moderate to severe compression change of T5 vertebral body similar to prior exam. Impression: 1. No evidence of pulmonary embolism. 2. Persistent abnormal right apical density with associated bronchiectasis identified surrounding the right upper lobe bronchus and extending peripherally. Moderate airspace opacity identified in the right lung base slightly increased since prior exam with small bilateral pleural effusions. Subpleural thickening or atelectasis is identified in the right middle lobe of the lung. PET/CT scan is recommended. 3. Severe bilateral lung emphysematous changes. Electronically signed by: Shon Sherwood MD (04/24/2020 12:49 AM) [id number]
[2020-04-24] MEDS ORDERED: IV NORMAL SALINE 1000ML BAG 1,000 ML IV ONE (01:00)
[2020-04-24 03:34] VITALS: BP 160/94
[2020-04-24] MEDS: cefTRIAXone IV Push 1 GM VIAL. IVP SCH (06:29)
[2020-04-24 07:00] VITALS: BP 130/60
--- NOTE | 2020-04-24 07:54 | PDOC ---
PROGRESS NOTES Chief Complaint Chief Complaint A/P: Acute Hypoxic Resp Failure// neg covid 04/22 50 plus years of tobacco use and has underlying COPD NSTEMI: CAD: S/P PCI Hx of lung CA with past radiation/chemo treatment Hypothyroidism HTN HLP Acute renal failure secondary to vasomotor nephropathy hypomag Leukocytosis Underweight PLAN trop 3.6 suspect demand mediated, type 2 continue supplemental 02 CONT ICU given increased 02 requirements Pulm following inflammatory markers elevated Consult pulmonary cont heparin drip. plavix replace Mg cards consulted full code per chart dvt ppx: heparin drip prognosis guarded ECHO 36 min History of Present Illness History of Present Illness Ms Trevino is an 79 yo female with hx CAD s/p PCI, lung cancer who presents with sob since 2 days ago reports non-productive cough. patient normally wears 3 liters of 02 at home. lives with son and daughter who alternate taking care of her. patient hard of hearing so hx difficult to obtain. per daughter, no chest pain, GI symptoms, anosmia. patients daughter's son works in a snf and did have covid 1 month ago. daughter denies recent exposure though. patient seen on floor and on 15 liters. chest xray shows: Heart is not enlarged. Aortic calcifications are seen. Right hilar prominence and right upper lung opacities are again seen. Background of interstitial prominence. Patchy opacities are seen in the right mid and lower lung may represent superimposed consolidation. Small right pleural effusion. No pneumothorax. 50 plus years of tobacco use and has underlying COPD, STOPPED SMOKING 2016 New reticulonodular opacities in the basilar left lower lobe, 10/2019 ct chest new from prior study. Infectious or inflammatory process, however metastatic disease is also possible. 04/23: She is still c/o substernal CP today and some bilateral LE swelling and pain. Afebrile, tachycardic, WBC now up to 17. CTPA: 1. No evidence of pulmonary embolism. 2. Persistent abnormal right apical density with associated bronchiectasis identified surrounding the right upper lobe bronchus and extending peripherally. Moderate airspace opacity identified in the right lung base slightly increased since prior exam with small bilateral pleural effusions. Subpleural thickening or atelectasis is identified in the right middle lobe of the lung. PET/CT scan is recommended. 3. Severe bilateral lung emphysematous changes. She is a bit less short of breath today, still with some chest tightness. O2 6L. Plan: Cont heparin, needs full anticoagulation with eliquis for DVT with known malignancy Urgent outpatient PET scan Treat pneumonia, added doxycycline Treat COPD Wean O2 as tolerated F/u cardiology recs of stress vs cath, if no cardiac cath is planned, start eliquis today Vitals Vitals Vital Signs Date Time Temp Pulse Resp B/P (MAP) Pulse Ox O2 Delivery O2 Flow Rate FiO2 04/24/20 03:34 97.5 118 25 160/94 (116) 97 Nasal Cannula 6.0 97.5 Physical Exam General: Alert, Oriented X3, Cooperative, No acute distress Heart: Regular rate, Other (sinus tachycardia) Lungs: Clear, Crackles Abdomen: Soft Extremities: No cyanosis, No edema Skin: No breakdown Labs LABS Laboratory Tests Test 04/23/20 12:30 04/23/20 21:00 04/24/20 06:00 Heparin Anti-Xa Act, Unfractionated < 0.10 IU/mL (0.30-0.70) < 0.10 IU/mL (0.30-0.70) 0.40 IU/mL (0.30-0.70) Assessment and Plan Assessmemt and Plan Problems Medical Problems: (1) Elevated troponin Status: Acute (2) Person under investigation for COVID-19 Status: Acute (3) Pneumonia Status: Acute Comment Review of Relevant I have reviewed the following items shirin (where applicable) has been applied. Labs Laboratory Tests Test 04/23/20 04:18 04/23/20 07:40 04/23/20 12:30 04/23/20 21:00 Heparin Anti-Xa Act, Unfractionated < 0.10 IU/mL (0.30-0.70) < 0.10 IU/mL (0.30-0.70) < 0.10 IU/mL (0.30-0.70) Sodium Level 141 mmol/L (136-145) Potassium Level 3.8 mmol/L (3.5-5.1) Chloride Level 103 mmol/L (98-107) Carbon Dioxide Level 22 mmol/L (21-32) Anion Gap 16 (6-14) Blood Urea Nitrogen 27 mg/dL (7-20) Creatinine 1.2 mg/dL (0.6-1.0) Estimated GFR (Cockcroft-Gault) 43.1 Glucose Level 65 mg/dL (70-99) Calcium Level 9.2 mg/dL (8.5-10.1) Phosphorus Level 3.5 mg/dL (2.6-4.7) Troponin I Quantitative 1.252 ng/mL (0.000-0.055) Albumin 2.5 g/dL (3.4-5.0) White Blood Count 17.7 x10^3/uL (4.0-11.0) Red Blood Count 3.92 x10^6/uL (3.50-5.40) Hemoglobin 11.8 g/dL (12.0-15.5) Hematocrit 36.2 % (36.0-47.0) Mean Corpuscular Volume 92 fL (79-100) Mean Corpuscular Hemoglobin 30 pg (25-35) Mean Corpuscular Hemoglobin Concent 33 g/dL (31-37) Red Cell Distribution Width 14.2 % (11.5-14.5) Platelet Count 222 x10^3/uL (140-400) Neutrophils (%) (Auto) 92 % (31-73) Lymphocytes (%) (Auto) 4 % (24-48) Monocytes (%) (Auto) 4 % (0-9) Eosinophils (%) (Auto) 0 % (0-3) Basophils (%) (Auto) 0 % (0-3) Neutrophils # (Auto) 16.3 x10^3/uL (1.8-7.7) Lymphocytes # (Auto) 0.7 x10^3/uL (1.0-4.8) Monocytes # (Auto) 0.7 x10^3/uL (0.0-1.1) Eosinophils # (Auto) 0.0 x10^3/uL (0.0-0.7) Basophils # (Auto) 0.0 x10^3/uL (0.0-0.2) Test 04/24/20 06:00 Heparin Anti-Xa Act, Unfractionated 0.40 IU/mL (0.30-0.70) Laboratory Tests Test 04/23/20 12:30 04/23/20 21:00 04/24/20 06:00 Heparin Anti-Xa Act, Unfractionated < 0.10 IU/mL (0.30-0.70) < 0.10 IU/mL (0.30-0.70) 0.40 IU/mL (0.30-0.70) Microbiology 04/20/20 Nose/Throat Culture - Final, Complete Medications Current Medications Ceftriaxone Sodium (Rocephin) 1 gm 1X ONCE IVP Last administered on 04/21/20 01:29; Start 04/21/20 at 00:30; Stop 04/21/20 at 00:31; Status DC Azithromycin 250 ml @ 250 mls/hr 1X ONCE IV Last administered on 04/21/20at 01:30; Start 04/21/20 at 00:30; Stop 04/21/20 at 01:29; Status DC Ondansetron HCl (Zofran) 4 mg PRN Q8HRS PRN IV NAUSEA/VOMITING 1ST CHOICE Last administered on 04/21/20at 01:33; Start 04/21/20 at 00:15; Stop 04/22/20 at 00:14; Status DC Acetaminophen (Tylenol) 650 mg PRN Q4HRS PRN PO FEVER > 100.3'F; Start 04/21/20 at 00:15; Stop 04/22/20 at 00:14; Status DC Hydromorphone HCl (Dilaudid) 0.5 mg PRN Q2HRS PRN IV SEVERE PAIN 7-10 Last administered on 04/21/20at 01:32; Start 04/21/20 at 01:00 Sodium Chloride 500 ml @ 500 mls/hr 1X ONCE IV Last administered on 04/21/20at 01:33; Start 04/21/20 at 02:00; Stop 04/21/20 at 02:59; Status DC Ceftriaxone Sodium (Rocephin) 1 gm Q24H IVP Last administered on 04/24/20at 06:29; Start 04/22/20 at 06:00 Azithromycin 500 mg/Sodium Chloride 250 ml @ 250 mls/hr Q24H IV ; Start 0 at 06:00; Stop 04/22/20 at 13:29; Status DC Enoxaparin Sodium (Lovenox Per Pharmacy Prophylaxis Dosing) 1 each PRN DAILY PRN MC SEE COMMENTS; Start 04/21/20 at 08:45; Stop 04/21/20 at 10:34; Status DC Enoxaparin Sodium (Lovenox 30mg Syringe) 30 mg Q24H SQ Last administered on 04/21/20at 09:35; Start 04/21/20 at 09:00; Stop 04/21/20 at 10:31; Status DC Heparin Sodium/ Dextrose 250 ml @ 5.832 mls/ hr CONT PRN IV PER PROTOCOL Last administered on 04/23/20at 06:04; Start 04/21/20 at 09:00; Stop 04/23/20 at 08:31; Status DC Heparin Sodium (Porcine) (Heparin Sodium) 1,200 unit PRN Q6HRS PRN IV FOR UFH LEVEL LESS THAN 0.2 Last administered on 04/23/20at 06:15; Start 04/21/20 at 09:00; Stop 04/23/20 at 08:31; Status DC Clopidogrel Bisulfate (Plavix) 75 mg DAILYWBKFT PO Last administered on 04/23/20at 08:30; Start 04/22/20 at 08:00 Info (Anti-Coagulation Monitoring By Pharmacy) 1 each PRN DAILY PRN MC SEE COMMENTS Last administered on 04/22/20at 12:00; Start 04/21/20 at 09:00; Stop 04/23/20 at 09:56; Status DC Magnesium Sulfate 50 ml @ 25 mls/hr 1X ONCE IV Last administered on 04/21/20at 12:46; Start 04/21/20 at 13:00; Stop 04/21/20 at 14:59; Status DC Atorvastatin Calcium (Lipitor) 20 mg QHS PO Last administered on 04/23/20at 22:09; Start 04/21/20 at 21:00 Metoprolol Succinate (Toprol Xl) 25 mg DAILY PO Last administered on 04/23/20at 08:30; Start 04/22/20 at 09:00 Benzonatate (Tessalon Perle) 100 mg [id number] PO Last administered on 04/23/20at 22:09; Start 04/22/20 at 09:00 Benzonatate (Tessalon Perle) 100 mg 1X ONCE PO Last administered on 04/21/20at 23:28; Start 04/21/20 at 23:15; Stop 04/21/20 at 23:16; Status DC Acetaminophen (Tylenol) 500 mg PRN Q6HRS PRN PO MILD PAIN / TEMP > 100.3'F; Start 04/22/20 at 06:45 Heparin Sodium/ Dextrose 250 ml @ 5.832 mls/ hr CONT PRN IV PER PROTOCOL Last administered on 04/23/20at 15:31; Start 04/23/20 at 15:30 Heparin Sodium (Porcine) (Heparin Sodium) 1,200 unit PRN Q6HRS PRN IV FOR UFH LEVEL LESS THAN 0.2 Last administered on 04/24/20at 00:00; Start 04/23/20 at 15:30 Info (Anti-Coagulation Monitoring By Pharmacy) 1 each PRN DAILY PRN MC SEE COMMENTS; Start 04/23/20 at 15:30 Doxycycline Hyclate 100 mg/ Dextrose 100 ml @ 50 mls/hr Q12HR IV Last administered on 04/23/20at 22:10; Start 04/23/20 at 21:00 Iohexol (Omnipaque 350 Mg/ml) 85 ml 1X ONCE IV Last administered on 04/23/20at 00:12; Start 04/23/20 at 23:45; Stop 04/23/20 at 23:46; Status DC Info (CONTRAST GIVEN -- Rx MONITORING) 1 each PRN DAILY PRN MC SEE COMMENTS; Start 04/23/20 at 23:45; Stop 04/25/20 at 23:44 Sodium Chloride 1,000 ml @ 100 mls/hr Q10H ONCE IV Last administered on 04/24/20at 01:03; Start 04/24/20 at 01:00; Stop 04/24/20 at 10:59 Active Scripts Active Clonidine Hcl 0.1 Mg Tablet 0.1 Mg PO BID PRN Take as needed for blood pressures greater than 185 systolic (top number) and/or 105 diastolic (bottom number). [id number] 50-325-40 (Butalb/Acetaminophen/Caffeine) 1 Each Tablet 1 Each PO Q6HRS PRN Atorvastatin Calcium 20 Mg Tablet 20 Mg PO QHS 30 Days Clopidogrel (Clopidogrel Bisulfate) 75 Mg Tablet 75 Mg PO DAILYWBKFT 30 Days Vitamin B-12 (Cyanocobalamin (Vitamin B-12)) 1,000 Mcg Tablet 1,000 Mcg PO DAILY Reported Proair Hfa Inhaler (Albuterol Sulfate) 8.5 Gm Hfa.aer.ad 2 Puff IH PRN Q4-6HRS PRN 21 Days Mirtazapine 15 Mg Tablet 15 Mg PO DAILY Albuterol Sulfate Neb Soln (Albuterol Sulfate) 0.63 Mg/3 Ml Vial.neb 0.63 Mg NEB PRN Q4HRS PRN Theophylline (Theophylline Anhydrous) 400 Mg Tablet.er 200 Mg PO DAILY Prochlorperazine Maleate 10 Mg Tablet 1 Tab PO Q6HRS NITROGLYCERIN SubLingual (Nitroglycerin) 0.4 Mg Tab.subl 0.4 Mg SL PRN Q5MIN PRN Super B Maxi Complex Caplet (Vitamin B Complex/Folic Acid) 0.4 Mg Tablet 0.4 Mg PO DAILY Metoprolol Succinate ( Xl ) (Metoprolol Succinate) 25 Mg Tab.er.24h 25 Mg PO DAILY Isosorbide Mononitrate Er (Isosorbide Mononitrate) 30 Mg Tab.er.24h 30 Mg PO DAILY Hydromorphone Hcl 4 Mg Tablet 4 Mg PO Q6HRS PRN Ferrous Sulfate 325 Mg Tablet 325 Mg PO DAILY Vitamin D (Cholecalciferol (Vitamin D3)) 2,000 Unit Capsule 2,000 Unit PO BID Potassium Chloride 10 Meq Tablet.er 10 Meq PO DAILY Colace (Docusate Sodium) 100 Mg Capsule 100 Mg PO HS Nexium Capsule (Esomeprazole Magnesium) 40 Mg Capsule.dr 2 Cap PO DAILY Levothyroxine Sodium 75 Mcg Tablet 1 Tab PO DAILY Gabapentin (Gabapentin) 100 Mg Capsule 100 Mg PO HS Allopurinol 100 Mg Tablet 1 Tab PO DAILY Vitals/I & O Vital Sign - Last 24 Hours 04/23/20 04/23/20 04/23/20 04/23/20 08:00 08:30 10:44 19:00 Temp 98.2 97.2 98.2 97.2 Pulse 114 109 105 Resp B/P (MAP) 108/69 126/53 (77) 120/74 (89) Pulse Ox 96 96 O2 Delivery Nasal Cannula Nasal Cannula Nasal Cannula O2 Flow Rate 6.0 6.0 6.0 04/23/20 04/23/20 04/24/20 20:00 23:18 03:34 Temp 97.5 97.5 97.5 97.5 Pulse 113 118 Resp B/P (MAP) 168/92 (117) 160/94 (116) Pulse Ox 97 97 O2 Delivery Nasal Cannula Nasal Cannula Nasal Cannula O2 Flow Rate 6.0 6.0 6.0 Intake and Output 04/23/20 04/23/20 04/24/20 15:00 23:00 07:00 Intake Total 0 ml 120 ml 10 ml Output Total 250 ml 100 ml Balance 0 ml -130 ml -90 ml Nutrition Consultation Dietary Evaluation: Recommendations by RD: Dietary education by RD, Increase Calorie Intake, Protein supplementation Comments: REC continue regular diet, will add ensure enlive to meals Expected Outcomes/Goals: to meet >75% est nutr needs Malnutrition Findings: Body Fat Depletion (Non Severe: Mild Depletion Weight Status: Underweight DORA WOODSON MD Apr 24, 2020 07:54
[2020-04-24] MEDS: DOXYCYCLINE HYCLATE 100 MG in IV DEXTROSE 5% 100ML 100 ML IV SCH ×2 (08:48→20:44)
[2020-04-24] MEDS: BENZONATATE 100 MG CAPSULE. PO SCH ×3 (08:50→20:45)
[2020-04-24] MEDS: CLOPIDOGREL BISULFATE 75 MG TABLET PO SCH (08:50)
[2020-04-24] MEDS: METOPROLOL SUCC 24HR ER 25 MG TAB.ER.24H. PO SCH (08:51)
--- NOTE | 2020-04-24 10:08 | PDOC ---
PULMONARY PROGRESS NOTES Subjective Remains on 6 liters N/C, denies SOB or increased cough Nursing reports she has increased anxiety overnight, with episode of SOB Vitals Vital Signs Date Time Temp Pulse Resp B/P (MAP) Pulse Ox O2 Delivery O2 Flow Rate FiO2 04/24/20 08:51 103 130/60 04/24/20 08:00 Nasal Cannula 6.0 04/24/20 07:00 97.6 18 99 97.6 ROS: No Nausea, No Chest Pain, No Abdominal Pain General: Alert, Oriented X4 Lungs: Clear, Crackles Cardiovascular: S1 Abdomen: Soft Neuro Exam: Alert Extremities: No Edema Skin: Warm Labs Laboratory Tests Test 04/23/20 04:18 04/23/20 07:40 04/23/20 12:30 04/23/20 21:00 Heparin Anti-Xa Act, Unfractionated < 0.10 IU/mL (0.30-0.70) < 0.10 IU/mL (0.30-0.70) < 0.10 IU/mL (0.30-0.70) Sodium Level 141 mmol/L (136-145) Potassium Level 3.8 mmol/L (3.5-5.1) Chloride Level 103 mmol/L (98-107) Carbon Dioxide Level 22 mmol/L (21-32) Anion Gap 16 (6-14) Blood Urea Nitrogen 27 mg/dL (7-20) Creatinine 1.2 mg/dL (0.6-1.0) Estimated GFR (Cockcroft-Gault) 43.1 Glucose Level 65 mg/dL (70-99) Calcium Level 9.2 mg/dL (8.5-10.1) Phosphorus Level 3.5 mg/dL (2.6-4.7) Troponin I Quantitative 1.252 ng/mL (0.000-0.055) Albumin 2.5 g/dL (3.4-5.0) White Blood Count 17.7 x10^3/uL (4.0-11.0) Red Blood Count 3.92 x10^6/uL (3.50-5.40) Hemoglobin 11.8 g/dL (12.0-15.5) Hematocrit 36.2 % (36.0-47.0) Mean Corpuscular Volume 92 fL (79-100) Mean Corpuscular Hemoglobin 30 pg (25-35) Mean Corpuscular Hemoglobin Concent 33 g/dL (31-37) Red Cell Distribution Width 14.2 % (11.5-14.5) Platelet Count 222 x10^3/uL (140-400) Neutrophils (%) (Auto) 92 % (31-73) Lymphocytes (%) (Auto) 4 % (24-48) Monocytes (%) (Auto) 4 % (0-9) Eosinophils (%) (Auto) 0 % (0-3) Basophils (%) (Auto) 0 % (0-3) Neutrophils # (Auto) 16.3 x10^3/uL (1.8-7.7) Lymphocytes # (Auto) 0.7 x10^3/uL (1.0-4.8) Monocytes # (Auto) 0.7 x10^3/uL (0.0-1.1) Eosinophils # (Auto) 0.0 x10^3/uL (0.0-0.7) Basophils # (Auto) 0.0 x10^3/uL (0.0-0.2) Test 04/24/20 06:00 Heparin Anti-Xa Act, Unfractionated 0.40 IU/mL (0.30-0.70) Laboratory Tests Test 04/23/20 12:30 04/23/20 21:00 04/24/20 06:00 Heparin Anti-Xa Act, Unfractionated < 0.10 IU/mL (0.30-0.70) < 0.10 IU/mL (0.30-0.70) 0.40 IU/mL (0.30-0.70) Medications Active Scripts Medications Dose Route/Sig Max Daily Dose Days Date Category Dose Instructions Proair Hfa Inhaler (Albuterol Sulfate) 8.5 Gm Hfa.aer.ad 2 Puff IH PRN Q4-6HRS PRN 21 04/21/20 Reported Mirtazapine 15 Mg Tablet 15 Mg PO DAILY 04/21/20 Reported Albuterol Sulfate Neb Soln (Albuterol Sulfate) 0.63 Mg/3 Ml Vial.neb 0.63 Mg NEB PRN Q4HRS PRN 04/21/20 Reported Clonidine Hcl 0.1 Mg Tablet 0.1 Mg PO BID PRN 06/30/19 Rx Take as needed for blood pressures greater than 185 systolic (top number) and/or 105 diastolic (bottom number). [id number] 50-325-40 (Butalb/Acetaminophen/Caffeine) 1 Each Tablet 1 Each PO Q6HRS PRN 06/30/19 Rx Atorvastatin Calcium 20 Mg Tablet 20 Mg PO QHS 30 04/25/19 Rx Clopidogrel (Clopidogrel Bisulfate) 75 Mg Tablet 75 Mg PO DAILYWBKFT 30 04/25/19 Rx Theophylline (Theophylline Anhydrous) 400 Mg Tablet.er 200 Mg PO DAILY 04/22/19 Reported Prochlorperazine Maleate 10 Mg Tablet 1 Tab PO Q6HRS 04/22/19 Reported NITROGLYCERIN SubLingual (Nitroglycerin) 0.4 Mg Tab.subl 0.4 Mg SL PRN Q5MIN PRN 04/22/19 Reported Super B Maxi Complex Caplet (Vitamin B Complex/Folic Acid) 0.4 Mg Tablet 0.4 Mg PO DAILY 04/22/19 Reported Metoprolol Succinate ( Xl ) (Metoprolol Succinate) 25 Mg Tab.er.24h 25 Mg PO DAILY 04/22/19 Reported Isosorbide Mononitrate Er (Isosorbide Mononitrate) 30 Mg Tab.er.24h 30 Mg PO DAILY 04/22/19 Reported Hydromorphone Hcl 4 Mg Tablet 4 Mg PO Q6HRS PRN 05/31/17 Reported Ferrous Sulfate 325 Mg Tablet 325 Mg PO DAILY 05/31/17 Reported Vitamin D (Cholecalciferol (Vitamin D3)) 2,000 Unit Capsule 2,000 Unit PO BID 05/31/17 Reported Potassium Chloride 10 Meq Tablet.er 10 Meq PO DAILY 05/31/17 Reported Colace (Docusate Sodium) 100 Mg Capsule 100 Mg PO HS 03/05/17 Reported Vitamin B-12 (Cyanocobalamin (Vitamin B-12)) 1,000 Mcg Tablet 1,000 Mcg PO DAILY 11/08/16 Rx Nexium Capsule (Esomeprazole Magnesium) 40 Mg Capsule.dr 2 Cap PO DAILY 05/08/16 Reported Levothyroxine Sodium 75 Mcg Tablet 1 Tab PO DAILY 05/08/16 Reported Gabapentin (Gabapentin) 100 Mg Capsule 100 Mg PO HS 05/08/16 Reported Allopurinol 100 Mg Tablet 1 Tab PO DAILY 05/08/16 Reported Comments CTA chest Impression: 1. No evidence of pulmonary embolism. 2. Persistent abnormal right apical density with associated bronchiectasis identified surrounding the right upper lobe bronchus and extending peripherally. Moderate airspace opacity identified in the right lung base slightly increased since prior exam with small bilateral pleural effusions. Subpleural thickening or atelectasis is identified in the right middle lobe of the lung. PET/CT scan is recommended. 3. Severe bilateral lung emphysematous changes. Impression . IMPRESSION: 1. Acute hypoxic respiratory failure secondary to combination of underlying chronic obstructive pulmonary disease with exacerbation, 2. Abnormal chest x-ray with marked volume loss in the right upper lobe secondary to post-radiation changes related to her lung cancer and also some interstitial infiltrates, right lower lobe and left lung suggesting a pneumonia. 3. History of lung cancer diagnosed in 2016, status post radiation and chemo with marked volume loss in the right upper lobe related to tumor and radiation changes. She had a CT chest in 10/2019. At that time, she also had some new reticulonodular opacities in the left lower lobe, likely inflammatory. 4. Leukocytosis secondary to pneumonia. 5. Acute kidney injury. 6. Abnormal troponin suggesting non-ST myocardial infarction. 7. Abnormal D-dimer, which is a nonspecific thing. This could be related to underlying cancer. We will obtain Dopplers of lower extremities. 8. Nonocclusive thrombus in the right popliteal vein Plan . Continue supplemental oxygen currently on 6 liters N/C Cont. PT OT SARS-CoV-2 negative Continue broad-spectrum antibiotics Repeat lower extremity Dopplers, next week Anticoagulation per cardiology-- currently heparin gtt/ plan to transition to Eliquis Follow HEM/ONC recs DNR IVETTE CHO MD Apr 24, 2020 10:08
[2020-04-24 11:00] VITALS: BP 137/69
--- NOTE | 2020-04-24 11:37 | PDOC ---
PROGRESS NOTES Subjective Subjective Patient seen and examined Objective Objective Vital Signs Date Time Temp Pulse Resp B/P (MAP) Pulse Ox O2 Delivery O2 Flow Rate FiO2 04/24/20 08:51 103 130/60 04/24/20 08:00 Nasal Cannula 6.0 04/24/20 07:00 97.6 18 99 97.6 Intake and Output 04/24/20 07:00 Intake Total 130 ml Output Total 350 ml Balance -220 ml Intake Oral 130 ml Output Urine Total 350 ml # Bowel Movements 2 Physical Exam Abdomen: Normal bowel sounds Heart: Regular rate General: mild distress Lungs: Other (Decreased breath sounds) Assessment Assessment Problems Medical Problems: (1) Elevated troponin Status: Acute (2) Person under investigation for COVID-19 Status: Acute (3) Pneumonia Status: Acute NSTEMI: trop peaked at 3.6 suspect demand mediated, type 2 with underlying pneumonia. EKG SR with no significant changes by comparison. No CP. Echo with an ejection fraction of 25 to 30% with the distal half of the LV being akinetic. Patient is more short of breath today requiring pulmonary support. We will continue medical treatment. Would hold on cardiac catheterization at this time. May start Eliquis. CAD: S/P PCI/RCA 03/2019 Pneumonia with AECOPD: pulmonary following. Covid negative Hx of lung CA with past radiation/chemo treatment Hypothyroidism: on replacement HTN: controlled HLP: on goal RENETTA: Cr improved Sinus tachycardia: physiologic, improved R LLE noncclusive DVT: PE? Comment Review of Relevant I have reviewed the following items shirin (where applicable) has been applied. Labs Laboratory Tests Test 04/23/20 04:18 04/23/20 07:40 04/23/20 12:30 04/23/20 21:00 Heparin Anti-Xa Act, Unfractionated < 0.10 IU/mL (0.30-0.70) < 0.10 IU/mL (0.30-0.70) < 0.10 IU/mL (0.30-0.70) Sodium Level 141 mmol/L (136-145) Potassium Level 3.8 mmol/L (3.5-5.1) Chloride Level 103 mmol/L (98-107) Carbon Dioxide Level 22 mmol/L (21-32) Anion Gap 16 (6-14) Blood Urea Nitrogen 27 mg/dL (7-20) Creatinine 1.2 mg/dL (0.6-1.0) Estimated GFR (Cockcroft-Gault) 43.1 Glucose Level 65 mg/dL (70-99) Calcium Level 9.2 mg/dL (8.5-10.1) Phosphorus Level 3.5 mg/dL (2.6-4.7) Troponin I Quantitative 1.252 ng/mL (0.000-0.055) Albumin 2.5 g/dL (3.4-5.0) White Blood Count 17.7 x10^3/uL (4.0-11.0) Red Blood Count 3.92 x10^6/uL (3.50-5.40) Hemoglobin 11.8 g/dL (12.0-15.5) Hematocrit 36.2 % (36.0-47.0) Mean Corpuscular Volume 92 fL (79-100) Mean Corpuscular Hemoglobin 30 pg (25-35) Mean Corpuscular Hemoglobin Concent 33 g/dL (31-37) Red Cell Distribution Width 14.2 % (11.5-14.5) Platelet Count 222 x10^3/uL (140-400) Neutrophils (%) (Auto) 92 % (31-73) Lymphocytes (%) (Auto) 4 % (24-48) Monocytes (%) (Auto) 4 % (0-9) Eosinophils (%) (Auto) 0 % (0-3) Basophils (%) (Auto) 0 % (0-3) Neutrophils # (Auto) 16.3 x10^3/uL (1.8-7.7) Lymphocytes # (Auto) 0.7 x10^3/uL (1.0-4.8) Monocytes # (Auto) 0.7 x10^3/uL (0.0-1.1) Eosinophils # (Auto) 0.0 x10^3/uL (0.0-0.7) Basophils # (Auto) 0.0 x10^3/uL (0.0-0.2) Test 04/24/20 06:00 Heparin Anti-Xa Act, Unfractionated 0.40 IU/mL (0.30-0.70) Laboratory Tests Test 04/23/20 12:30 04/23/20 21:00 04/24/20 06:00 Heparin Anti-Xa Act, Unfractionated < 0.10 IU/mL (0.30-0.70) < 0.10 IU/mL (0.30-0.70) 0.40 IU/mL (0.30-0.70) Microbiology 04/20/20 Nose/Throat Culture - Final, Complete Medications Current Medications Ceftriaxone Sodium (Rocephin) 1 gm 1X ONCE IVP Last administered on 04/21/20at 01:29; Start 04/21/20 at 00:30; Stop 04/21/20 at 00:31; Status DC Azithromycin 250 ml @ 250 mls/hr 1X ONCE IV Last administered on 04/21/20at 01:30; Start 04/21/20 at 00:30; Stop 04/21/20 at 01:29; Status DC Ondansetron HCl (Zofran) 4 mg PRN Q8HRS PRN IV NAUSEA/VOMITING 1ST CHOICE Last administered on 04/21/20at 01:33; Start 04/21/20 at 00:15; Stop 04/22/20 at 00:14; Status DC Acetaminophen (Tylenol) 650 mg PRN Q4HRS PRN PO FEVER > 100.3'F; Start 04/21/20 at 00:15; Stop 04/22/20 at 00:14; Status DC Hydromorphone HCl (Dilaudid) 0.5 mg PRN Q2HRS PRN IV SEVERE PAIN 7-10 Last administered on 04/21/20at 01:32; Start 04/21/20 at 01:00 Sodium Chloride 500 ml @ 500 mls/hr 1X ONCE IV Last administered on 04/21/20at 01:33; Start 04/21/20 at 02:00; Stop 04/21/20 at 02:59; Status DC Ceftriaxone Sodium (Rocephin) 1 gm Q24H IVP Last administered on 04/24/20at 06:29; Start 04/22/20 at 06:00 Azithromycin 500 mg/Sodium Chloride 250 ml @ 250 mls/hr Q24H IV ; Start 04/22/20 at 06:00; Stop 04/22/20 at 13:29; Status DC Enoxaparin Sodium (Lovenox Per Pharmacy Prophylaxis Dosing) 1 each PRN DAILY PRN MC SEE COMMENTS; Start 04/21/20 at 08:45; Stop 04/21/20 at 10:34; Status DC Enoxaparin Sodium (Lovenox 30mg Syringe) 30 mg Q24H SQ Last administered on 04/21/20at 09:35; Start 04/21/20 at 09:00; Stop 04/21/20 at 10:31; Status DC Heparin Sodium/ Dextrose 250 ml @ 5.832 mls/ hr CONT PRN IV PER PROTOCOL Last administered on 04/23/20at 06:04; Start 04/21/20 at 09:00; Stop 04/23/20 at 08:31; Status DC Heparin Sodium (Porcine) (Heparin Sodium) 1,200 unit PRN Q6HRS PRN IV FOR UFH LEVEL LESS THAN 0.2 Last administered on 04/23/20at 06:15; Start 04/21/20 at 09:00; Stop 04/23/20 at 08:31; Status DC Clopidogrel Bisulfate (Plavix) 75 mg [id number] PO Last administered on 04/24/20at 08:50; Start 04/22/20 at 08:00 Info (Anti-Coagulation Monitoring By Pharmacy) 1 each PRN DAILY PRN MC SEE COMMENTS Last administered on 04/22/20at 12:00; Start 04/21/20 at 09:00; Stop 04/23/20 at 09:56; Status DC Magnesium Sulfate 50 ml @ 25 mls/hr 1X ONCE IV Last administered on 04/21/20at 12:46; Start 04/21/20 at 13:00; Stop 04/21/20 at 14:59; Status DC Atorvastatin Calcium (Lipitor) 20 mg QHS PO Last administered on 04/23/20at 22:09; Start 04/21/20 at 21:00 Metoprolol Succinate (Toprol Xl) 25 mg DAILY PO Last administered on 04/24/20at 08:51; Start 04/22/20 at 09:00 Benzonatate (Tessalon Perle) 100 mg [id number] PO Last administered on 04/24/20at 08:50; Start 04/22/20 at 09:00 Benzonatate (Tessalon Perle) 100 mg 1X ONCE PO Last administered on 04/21/20at 23:28; Start 04/21/20 at 23:15; Stop 04/21/20 at 23:16; Status DC Acetaminophen (Tylenol) 500 mg PRN Q6HRS PRN PO MILD PAIN / TEMP > 100.3'F; Start 04/22/20 at 06:45 Heparin Sodium/ Dextrose 250 ml @ 5.832 mls/ hr CONT PRN IV PER PROTOCOL Last administered on 04/23/20at 15:31; Start 04/23/20 at 15:30 Heparin Sodium (Porcine) (Heparin Sodium) 1,200 unit PRN Q6HRS PRN IV FOR UFH LEVEL LESS THAN 0.2 Last administered on 04/24/20at 00:00; Start 04/23/20 at 15:30 Info (Anti-Coagulation Monitoring By Pharmacy) 1 each PRN DAILY PRN MC SEE COM MENTS; Start 04/23/20 at 15:30 Doxycycline Hyclate 100 mg/ Dextrose 100 ml @ 50 mls/hr Q12HR IV Last administered on 04/24/20at 08:48; Start 04/23/20 at 21:00 Iohexol (Omnipaque 350 Mg/ml) 85 ml 1X ONCE IV Last administered on 04/23/20at 00:12; Start 04/23/20 at 23:45; Stop 04/23/20 at 23:46; Status DC Info (CONTRAST GIVEN -- Rx MONITORING) 1 each PRN DAILY PRN MC SEE COMMENTS; Start 04/23/20 at 23:45; Stop 04/25/20 at 23:44 Sodium Chloride 1,000 ml @ 100 mls/hr Q10H ONCE IV Last administered on at 01:03; Start 04/24/20 at 01:00; Stop 04/24/20 at 10:59; Status DC Active Scripts Active Clonidine Hcl 0.1 Mg Tablet 0.1 Mg PO BID PRN Take as needed for blood pressures greater than 185 systolic (top number) and/or 105 diastolic (bottom number). Fkhshg-Vugskgut-Uolt 50-325-40 (Butalb/Acetaminophen/Caffeine) 1 Each Tablet 1 Each PO Q6HRS PRN Atorvastatin Calcium 20 Mg Tablet 20 Mg PO QHS 30 Days Clopidogrel (Clopidogrel Bisulfate) 75 Mg Tablet 75 Mg PO DAILYWBKFT 30 Days Vitamin B-12 (Cyanocobalamin (Vitamin B-12)) 1,000 Mcg Tablet 1,000 Mcg PO DAILY Reported Proair Hfa Inhaler (Albuterol Sulfate) 8.5 Gm Hfa.aer.ad 2 Puff IH PRN Q4-6HRS PRN 21 Days Mirtazapine 15 Mg Tablet 15 Mg PO DAILY Albuterol Sulfate Neb Soln (Albuterol Sulfate) 0.63 Mg/3 Ml Vial.neb 0.63 Mg NEB PRN Q4HRS PRN Theophylline (Theophylline Anhydrous) 400 Mg Tablet.er 200 Mg PO DAILY Prochlorperazine Maleate 10 Mg Tablet 1 Tab PO Q6HRS NITROGLYCERIN SubLingual (Nitroglycerin) 0.4 Mg Tab.subl 0.4 Mg SL PRN Q5MIN PRN Super B Maxi Complex Caplet (Vitamin B Complex/Folic Acid) 0.4 Mg Tablet 0.4 Mg PO DAILY Metoprolol Succinate ( Xl ) (Metoprolol Succinate) 25 Mg Tab.er.24h 25 Mg PO DAILY Isosorbide Mononitrate Er (Isosorbide Mononitrate) 30 Mg Tab.er.24h 30 Mg PO DAILY Hydromorphone Hcl 4 Mg Tablet 4 Mg PO Q6HRS PRN Ferrous Sulfate 325 Mg Tablet 325 Mg PO DAILY Vitamin D (Cholecalciferol (Vitamin D3)) 2,000 Unit Capsule 2,000 Unit PO BID Potassium Chloride 10 Meq Tablet.er 10 Meq PO DAILY Colace (Docusate Sodium) 100 Mg Capsule 100 Mg PO HS Nexium Capsule (Esomeprazole Magnesium) 40 Mg Capsule.dr 2 Cap PO DAILY Levothyroxine Sodium 75 Mcg Tablet 1 Tab PO DAILY Gabapentin (Gabapentin) 100 Mg Capsule 100 Mg PO HS Allopurinol 100 Mg Tablet 1 Tab PO DAILY Vitals/I & O Vital Sign - Last 24 Hours 04/23/20 04/23/20 04/23/20 04/24/20 19:00 20:00 23:18 03:34 Temp 97.2 97.5 97.5 97.2 97.5 97.5 Pulse 105 113 118 Resp B/P (MAP) 120/74 (89) 168/92 (117) 160/94 (116) Pulse Ox 96 97 97 O2 Delivery Nasal Cannula Nasal Cannula Nasal Cannula Nasal Cannula O2 Flow Rate 6.0 6.0 6.0 6.0 04/24/20 04/24/20 04/24/20 07:00 08:00 08:51 Temp 97.6 97.6 Pulse 103 103 Resp 18 B/P (MAP) 130/60 (83) 130/60 Pulse Ox 99 O2 Delivery Nasal Cannula Nasal Cannula O2 Flow Rate 6.0 6.0 Intake and Output 04/23/20 04/23/20 04/24/20 15:00 23:00 07:00 Intake Total 0 ml 120 ml 10 ml Output Total 250 ml 100 ml Balance 0 ml -130 ml -90 ml Justicifation of Admission Dx: Justifications for Admission: Justification of Admission Dx: Comment: (Pneumonia; elevated troponin) Nutrition Consultation Dietary Evaluation: Recommendations by RD: Dietary education by RD, Increase Calorie Intake, Protein supplementation Comments: REC continue regular diet, will add ensure enlive to meals Expected Outcomes/Goals: to meet >75% est nutr needs Malnutrition Findings: Body Fat Depletion (Non Severe: Mild Depletion Weight Status: Underweight ANKUSH QUIROZ MD Apr 24, 2020 11:37
[2020-04-24 15:00] VITALS: BP 129/81
[2020-04-24 20:05] VITALS: BP 146/72
[2020-04-24] MEDS: ATORVASTATIN CALCIUM 20 MG TABLET PO SCH (20:45)
[2020-04-24] MEDS: HEPARIN 25,000UTS/250ML PREMIX 250 ML IV PRN (20:54)
[2020-04-24 23:20] VITALS: BP 155/74
[2020-04-24] MEDS: HYDROmorphone 2 MG/ML VIAL IV PRN (23:42)
[2020-04-25 02:39] LABS: BASO # 0.1 x10^3/uL (0.0-0.2); BASO % 1 % (0-3); EOS # 0.1 x10^3/uL (0.0-0.7); EOS % 1 % (0-3); HEMATOCRIT 31.4 % (36.0-47.0); HEMOGLOBIN 10.4 g/dL (12.0-15.5); LYMPH # 1.1 x10^3/uL (1.0-4.8); LYMPH % 11 % (24-48); MEAN CORPUSCULAR HEMOGLOBIN 31 pg (25-35); MEAN CORPUSCULAR HGB CONC 33 g/dL (31-37); MEAN CORPUSCULAR VOLUME 94 fL (79-100); MONO # 0.9 x10^3/uL (0.0-1.1); MONO % 8 % (0-9); NEUT # 8.2 x10^3/uL (1.8-7.7); NEUT % 80 % (31-73); PLATELET COUNT 235 x10^3/uL (140-400); RED BLOOD COUNT 3.34 x10^6/uL (3.50-5.40); RED CELL DISTRIBUTION WIDTH 14.4 % (11.5-14.5); WHITE BLOOD COUNT 10.3 x10^3/uL (4.0-11.0)
[2020-04-25 03:15] VITALS: BP 144/75
[2020-04-25 03:15] LABS: ALBUMIN 2.1 g/dL (3.4-5.0); ALBUMIN/GLOBULIN RATIO 0.5 (1.0-1.7); CALCIUM 8.5 mg/dL (8.5-10.1); CREATININE 1.3 mg/dL (0.6-1.0); GFR 39.3; POTASSIUM 3.3 mmol/L (3.5-5.1); TOTAL BILIRUBIN 0.3 mg/dL (0.2-1.0); TOTAL PROTEIN 6.1 g/dL (6.4-8.2)
[2020-04-25] MEDS: cefTRIAXone IV Push 1 GM VIAL. IVP SCH (05:41)
[2020-04-25 07:00] VITALS: BP 136/73
--- NOTE | 2020-04-25 07:34 | PDOC ---
PROGRESS NOTES Chief Complaint Chief Complaint A/P: Acute Hypoxic Resp Failure - neg covid 04/22 50 plus years of tobacco use and has underlying COPD NSTEMI CAD: S/P PCI Hx of lung CA with past radiation/chemo treatment Hypothyroidism HTN HLP Acute renal failure secondary to vasomotor nephropathy hypomag Leukocytosis Underweight History of Present Illness History of Present Illness Ms Trevino is an 79 yo F w/ PMHx CAD s/p PCI, lung cancer who presents with sob since 2 days ago reports non-productive cough. patient normally wears 3 liters of 02 at home. lives with son and daughter who alternate taking care of her. patient hard of hearing so hx difficult to obtain. per daughter, no chest pain, GI symptoms, anosmia. patients daughter's son works in a care home and did have covid 1 month ago. daughter denies recent exposure though. patient seen on floor and on 15 liters. chest xray shows: Heart is not enlarged. Aortic calcifications are seen. Right hilar prominence and right upper lung opacities are again seen. Background of interstitial prominence. Patchy opacities are seen in the right mid and lower lung may represent superimposed consolidation. Small right pleural effusion. No pneumothorax. 50 plus years of tobacco use and has underlying COPD, STOPPED SMOKING 2016 New reticulonodular opacities in the basilar left lower lobe, 10/2019 ct chest new from prior study. Infectious or inflammatory process, however metastatic disease is also possible. 04/23: She is still c/o substernal CP today and some bilateral LE swelling and pain. Afebrile, tachycardic, WBC now up to 17. CTPA: 1. No evidence of pulmonary embolism. 2. Persistent abnormal right apical density with associated bronchiectasis identified surrounding the right upper lobe bronchus and extending peripherally. Moderate airspace opacity identified in the right lung base slightly increased since prior exam with small bilateral pleural effusions. Subpleural thickening or atelectasis is identified in the right middle lobe of the lung. PET/CT scan is recommended. 3. Severe bilateral lung emphysematous changes. 04/24: She is a bit less short of breath today, still with some chest tightness. O2 6L. O2 still at 6L. Shortness of breath the same. Discussed with cardiology no plans for intervention. She has not been out of bed has been using bedpan for bowel movements. Goal is to go home. Plan: Stop heparin, needs full anticoagulation with eliquis for DVT with known malignancy, will start today Urgent outpatient PET scan Treat pneumonia, added doxycycline Treat COPD Wean O2 as tolerated Formal PT/OT evaluation. Family goal is home, if this is realistic she will need home therapy. I have left voicemail with Daughter, Itzel, awaiting call back. Vitals Vitals Vital Signs Date Time Temp Pulse Resp B/P (MAP) Pulse Ox O2 Delivery O2 Flow Rate FiO2 04/25/20 03:15 97.1 98 24 144/75 (98) 93 Nasal Cannula 7.0 97.1 Physical Exam General: Alert, Cooperative, mild distress Heart: Regular rate Lungs: Clear, Crackles Abdomen: Normal bowel sounds Extremities: No cyanosis, No edema Skin: No breakdown Labs LABS Laboratory Tests Test 04/24/20 11:47 04/24/20 18:20 04/25/20 00:40 Heparin Anti-Xa Act, Unfractionated 0.29 IU/mL (0.30-0.70) 0.48 IU/mL (0.30-0.70) 0.44 IU/mL (0.30-0.70) White Blood Count 10.3 x10^3/uL (4.0-11.0) Red Blood Count 3.34 x10^6/uL (3.50-5.40) Hemoglobin 10.4 g/dL (12.0-15.5) Hematocrit 31.4 % (36.0-47.0) Mean Corpuscular Volume 94 fL (79-100) Mean Corpuscular Hemoglobin 31 pg (25-35) Mean Corpuscular Hemoglobin Concent 33 g/dL (31-37) Red Cell Distribution Width 14.4 % (11.5-14.5) Platelet Count 235 x10^3/uL (140-400) Neutrophils (%) (Auto) 80 % (31-73) Lymphocytes (%) (Auto) 11 % (24-48) Monocytes (%) (Auto) 8 % (0-9) Eosinophils (%) (Auto) 1 % (0-3) Basophils (%) (Auto) 1 % (0-3) Neutrophils # (Auto) 8.2 x10^3/uL (1.8-7.7) Lymphocytes # (Auto) 1.1 x10^3/uL (1.0-4.8) Monocytes # (Auto) 0.9 x10^3/uL (0.0-1.1) Eosinophils # (Auto) 0.1 x10^3/uL (0.0-0.7) Basophils # (Auto) 0.1 x10^3/uL (0.0-0.2) Sodium Level 144 mmol/L (136-145) Potassium Level 3.3 mmol/L (3.5-5.1) Chloride Level 108 mmol/L (98-107) Carbon Dioxide Level 28 mmol/L (21-32) Anion Gap 8 (6-14) Blood Urea Nitrogen 24 mg/dL (7-20) Creatinine 1.3 mg/dL (0.6-1.0) Estimated GFR (Cockcroft-Gault) 39.3 BUN/Creatinine Ratio 18 (6-20) Glucose Level 126 mg/dL (70-99) Calcium Level 8.5 mg/dL (8.5-10.1) Total Bilirubin 0.3 mg/dL (0.2-1.0) Aspartate Amino Transf (AST/SGOT) 26 U/L (15-37) Alanine Aminotransferase (ALT/SGPT) 29 U/L (14-59) Alkaline Phosphatase 53 U/L (46-116) Total Protein 6.1 g/dL (6.4-8.2) Albumin 2.1 g/dL (3.4-5.0) Albumin/Globulin Ratio 0.5 (1.0-1.7) Assessment and Plan Assessmemt and Plan Problems Medical Problems: (1) Elevated troponin Status: Acute (2) Person under investigation for COVID-19 Status: Acute (3) Pneumonia Status: Acute Comment Review of Relevant I have reviewed the following items shirin (where applicable) has been applied. Labs Laboratory Tests Test 04/23/20 07:40 04/23/20 12:30 04/23/20 21:00 04/24/20 06:00 White Blood Count 17.7 x10^3/uL (4.0-11.0) Red Blood Count 3.92 x10^6/uL (3.50-5.40) Hemoglobin 11.8 g/dL (12.0-15.5) Hematocrit 36.2 % (36.0-47.0) Mean Corpuscular Volume 92 fL (79-100) Mean Corpuscular Hemoglobin 30 pg (25-35) Mean Corpuscular Hemoglobin Concent 33 g/dL (31-37) Red Cell Distribution Width 14.2 % (11.5-14.5) Platelet Count 222 x10^3/uL (140-400) Neutrophils (%) (Auto) 92 % (31-73) Lymphocytes (%) (Auto) 4 % (24-48) Monocytes (%) (Auto) 4 % (0-9) Eosinophils (%) (Auto) 0 % (0-3) Basophils (%) (Auto) 0 % (0-3) Neutrophils # (Auto) 16.3 x10^3/uL (1.8-7.7) Lymphocytes # (Auto) 0.7 x10^3/uL (1.0-4.8) Monocytes # (Auto) 0.7 x10^3/uL (0.0-1.1) Eosinophils # (Auto) 0.0 x10^3/uL (0.0-0.7) Basophils # (Auto) 0.0 x10^3/uL (0.0-0.2) Heparin Anti-Xa Act, Unfractionated < 0.10 IU/mL (0.30-0.70) < 0.10 IU/mL (0.30-0.70) 0.40 IU/mL (0.30-0.70) Test 04/24/20 11:47 04/24/20 18:20 04/25/20 00:40 Heparin Anti-Xa Act, Unfractionated 0.29 IU/mL (0.30-0.70) 0.48 IU/mL (0.30-0.70) 0.44 IU/mL (0.30-0.70) White Blood Count 10.3 x10^3/uL (4.0-11.0) Red Blood Count 3.34 x10^6/uL (3.50-5.40) Hemoglobin 10.4 g/dL (12.0-15.5) Hematocrit 31.4 % (36.0-47.0) Mean Corpuscular Volume 94 fL (79-100) Mean Corpuscular Hemoglobin 31 pg (25-35) Mean Corpuscular Hemoglobin Concent 33 g/dL (31-37) Red Cell Distribution Width 14.4 % (11.5-14.5) Platelet Count 235 x10^3/uL (140-400) Neutrophils (%) (Auto) 80 % (31-73) Lymphocytes (%) (Auto) 11 % (24-48) Monocytes (%) (Auto) 8 % (0-9) Eosinophils (%) (Auto) 1 % (0-3) Basophils (%) (Auto) 1 % (0-3) Neutrophils # (Auto) 8.2 x10^3/uL (1.8-7.7) Lymphocytes # (Auto) 1.1 x10^3/uL (1.0-4.8) Monocytes # (Auto) 0.9 x10^3/uL (0.0-1.1) Eosinophils # (Auto) 0.1 x10^3/uL (0.0-0.7) Basophils # (Auto) 0.1 x10^3/uL (0.0-0.2) Sodium Level 144 mmol/L (136-145) Potassium Level 3.3 mmol/L (3.5-5.1) Chloride Level 108 mmol/L (98-107) Carbon Dioxide Level 28 mmol/L (21-32) Anion Gap 8 (6-14) Blood Urea Nitrogen 24 mg/dL (7-20) Creatinine 1.3 mg/dL (0.6-1.0) Estimated GFR (Cockcroft-Gault) 39.3 BUN/Creatinine Ratio 18 (6-20) Glucose Level 126 mg/dL (70-99) Calcium Level 8.5 mg/dL (8.5-10.1) Total Bilirubin 0.3 mg/dL (0.2-1.0) Aspartate Amino Transf (AST/SGOT) 26 U/L (15-37) Alanine Aminotransferase (ALT/SGPT) 29 U/L (14-59) Alkaline Phosphatase 53 U/L (46-116) Total Protein 6.1 g/dL (6.4-8.2) Albumin 2.1 g/dL (3.4-5.0) Albumin/Globulin Ratio 0.5 (1.0-1.7) Laboratory Tests Test 04/24/20 11:47 04/24/20 18:04/25/20 00:40 Heparin Anti-Xa Act, Unfractionated 0.29 IU/mL (0.30-0.70) 0.48 IU/mL (0.30-0.70) 0.44 IU/mL (0.30-0.70) White Blood Count 10.3 x10^3/uL (4.0-11.0) Red Blood Count 3.34 x10^6/uL (3.50-5.40) Hemoglobin 10.4 g/dL (12.0-15.5) Hematocrit 31.4 % (36.0-47.0) Mean Corpuscular Volume 94 fL (79-100) Mean Corpuscular Hemoglobin 31 pg (25-35) Mean Corpuscular Hemoglobin Concent 33 g/dL (31-37) Red Cell Distribution Width 14.4 % (11.5-14.5) Platelet Count 235 x10^3/uL (140-400) Neutrophils (%) (Auto) 80 % (31-73) Lymphocytes (%) (Auto) 11 % (24-48) Monocytes (%) (Auto) 8 % (0-9) Eosinophils (%) (Auto) 1 % (0-3) Basophils (%) (Auto) 1 % (0-3) Neutrophils # (Auto) 8.2 x10^3/uL (1.8-7.7) Lymphocytes # (Auto) 1.1 x10^3/uL (1.0-4.8) Monocytes # (Auto) 0.9 x10^3/uL (0.0-1.1) Eosinophils # (Auto) 0.1 x10^3/uL (0.0-0.7) Basophils # (Auto) 0.1 x10^3/uL (0.0-0.2) Sodium Level 144 mmol/L (136-145) Potassium Level 3.3 mmol/L (3.5-5.1) Chloride Level 108 mmol/L (98-107) Carbon Dioxide Level 28 mmol/L (21-32) Anion Gap 8 (6-14) Blood Urea Nitrogen 24 mg/dL (7-20) Creatinine 1.3 mg/dL (0.6-1.0) Estimated GFR (Cockcroft-Gault) 39.3 BUN/Creatinine Ratio 18 (6-20) Glucose Level 126 mg/dL (70-99) Calcium Level 8.5 mg/dL (8.5-10.1) Total Bilirubin 0.3 mg/dL (0.2-1.0) Aspartate Amino Transf (AST/SGOT) 26 U/L (15-37) Alanine Aminotransferase (ALT/SGPT) 29 U/L (14-59) Alkaline Phosphatase 53 U/L (46-116) Total Protein 6.1 g/dL (6.4-8.2) Albumin 2.1 g/dL (3.4-5.0) Albumin/Globulin Ratio 0.5 (1.0-1.7) Microbiology 04/20/20 Nose/Throat Culture - Final, Complete Medications Current Medications Ceftriaxone Sodium (Rocephin) 1 gm 1X ONCE IVP Last administered on 04/21/20at 01:29; Start 04/21/20 at 00:30; Stop 04/21/20 at 00:31; Status DC Azithromycin 250 ml @ 250 mls/hr 1X ONCE IV Last administered on 04/21/20at 01:30; Start 04/21/20 at 00:30; Stop 04/21/20 at 01:29; Status DC Ondansetron HCl (Zofran) 4 mg PRN Q8HRS PRN IV NAUSEA/VOMITING 1ST CHOICE Last administered on 04/21/20at 01:33; Start 04/21/20 at 00:15; Stop 04/22/20 at 00:14; Status DC Acetaminophen (Tylenol) 650 mg PRN Q4HRS PRN PO FEVER > 100.3'F; Start 04/21/20 at 00:15; Stop 04/22/20 at 00:14; Status DC Hydromorphone HCl (Dilaudid) 0.5 mg PRN Q2HRS PRN IV SEVERE PAIN 7-10 Last administered on 04/24/20at 23:42; Start 04/21/20 at 01:00 Sodium Chloride 500 ml @ 500 mls/hr 1X ONCE IV Last administered on 04/21/20at 01:33; Start 04/21/20 at 02:00; Stop 04/21/20 at 02:59; Status DC Ceftriaxone Sodium (Rocephin) 1 gm Q24H IVP Last administered on 04/25/20at 05:41; Start 04/22/20 at 06:00 Azithromycin 500 mg/Sodium Chloride 250 ml @ 250 mls/hr Q24H IV ; Start at 06:00; Stop 04/22/20 at 13:29; Status DC Enoxaparin Sodium (Lovenox Per Pharmacy Prophylaxis Dosing) [address] N [facility] SEE COMMENTS; Start 04/21/20 at 08:45; Stop 04/21/20 at 10:34; Status DC Enoxaparin Sodium (Lovenox 30mg Syringe) 30 mg Q24H SQ Last administered on 04/21/20at 09:35; Start 04/21/20 at 09:00; Stop 04/21/20 at 10:31; Status DC Heparin Sodium/ Dextrose 250 ml @ 5.832 mls/ hr CONT PRN IV PER PROTOCOL Last administered on 04/23/20at 06:04; Start 04/21/20 at 09:00; Stop 04/23/20 at 08:31; Status DC Heparin Sodium (Porcine) (Heparin Sodium) 1,200 unit PRN Q6HRS PRN IV FOR UFH LEVEL LESS THAN 0.2 Last administered on 04/23/20at 06:15; Start 04/21/20 at 09:00; Stop 04/23/20 at 08:31; Status DC Clopidogrel Bisulfate (Plavix) 75 mg DAILYWBKFT PO Last administered on 04/24/20at 08:50; Start 04/22/20 at 08:00 Info (Anti-Coagulation Monitoring By Pharmacy) 1 each PRN DAILY PRN [facility] SEE COMMENTS Last administered on 04/22/20at 12:00; Start 04/21/20 at 09:00; Stop 04/23/20 at 09:56; Status DC Magnesium Sulfate 50 ml @ 25 mls/hr 1X ONCE IV Last administered on 04/21/20at 12:46; Start 04/21/20 at 13:00; Stop 04/21/20 at 14:59; Status DC Atorvastatin Calcium (Lipitor) 20 mg QHS PO Last administered on 04/24/20at 20:45; Start 04/21/20 at 21:00 Metoprolol Succinate (Toprol Xl) 25 mg DAILY PO Last administered on 04/24/20at 08:51; Start 04/22/20 at 09:00 Benzonatate (Tessalon Perle) 100 mg [id number] PO Last administered on 04/24/20at 20:45; Start 04/22/20 at 09:00 Benzonatate (Tessalon Perle) 100 mg 1X ONCE PO Last administered on 04/21/20at 23:28; Start 04/21/20 at 23:15; Stop 04/21/20 at 23:16; Status DC Acetaminophen (Tylenol) 500 mg PRN Q6HRS PRN PO MILD PAIN / TEMP > 100.3'F; Start 04/22/20 at 06:45 Heparin Sodium/ Dextrose 250 ml @ 5.832 mls/ hr CONT PRN IV PER PROTOCOL Last administered on 04/24/20at 20:54; Start 04/23/20 at 15:30 Heparin Sodium (Porcine) (Heparin Sodium) 1,200 unit PRN Q6HRS PRN IV FOR UFH LEVEL LESS THAN 0.2 Last administered on 04/24/20at 00:00; Start 04/23/20 at 15:30 Info (Anti-Coagulation Monitoring By Pharmacy) 1 each PRN DAILY PRN [facility] SEE COMMENTS; Start 04/23/20 at 15:30 Doxycycline Hyclate 100 mg/ Dextrose 100 ml @ 50 mls/hr Q12HR IV Last administered on 04/24/20at 20:44; Start 04/23/20 at 21:00 Iohexol (Omnipaque 350 Mg/ml) 85 ml 1X ONCE IV Last administered on 04/23/20at 00:12; Start 04/23/20 at 23:45; Stop 04/23/20 at 23:46; Status DC Info (CONTRAST GIVEN -- Rx MONITORING) 1 each PRN DAILY PRN [facility] SEE COMMENTS; Start 04/23/20 at 23:45; Stop 04/25/20 at 23:44 Sodium Chloride 1,000 ml @ 100 mls/hr Q10H ONCE IV Last administered on 04/24/20at 01:03; Start 04/24/20 at 01:00; Stop 04/24/20 at 10:59; Status DC Active Scripts Active Clonidine Hcl 0.1 Mg Tablet 0.1 Mg PO BID PRN Take as needed for blood pressures greater than 185 systolic (top number) and/or 105 diastolic (bottom number). Rtotwu-Bannkddl-Lemu 50-325-40 (Butalb/Acetaminophen/Caffeine) 1 Each Tablet 1 Each PO Q6HRS PRN Atorvastatin Calcium 20 Mg Tablet 20 Mg PO QHS 30 Days Clopidogrel (Clopidogrel Bisulfate) 75 Mg Tablet 75 Mg PO DAILYWBKFT 30 Days Vitamin B-12 (Cyanocobalamin (Vitamin B-12)) 1,000 Mcg Tablet 1,000 Mcg PO DAILY Reported Proair Hfa Inhaler (Albuterol Sulfate) 8.5 Gm Hfa.aer.ad 2 Puff IH PRN Q4-6HRS PRN 21 Days Mirtazapine 15 Mg Tablet 15 Mg PO DAILY Albuterol Sulfate Neb Soln (Albuterol Sulfate) 0.63 Mg/3 Ml Vial.neb 0.63 Mg NEB PRN Q4HRS PRN Theophylline (Theophylline Anhydrous) 400 Mg Tablet.er 200 Mg PO DAILY Prochlorperazine Maleate 10 Mg Tablet 1 Tab PO Q6HRS NITROGLYCERIN SubLingual (Nitroglycerin) 0.4 Mg Tab.subl 0.4 Mg SL PRN Q5MIN PRN Super B Maxi Complex Caplet (Vitamin B Complex/Folic Acid) 0.4 Mg Tablet 0.4 Mg PO DAILY Metoprolol Succinate ( Xl ) (Metoprolol Succinate) 25 Mg Tab.er.24h 25 Mg PO DAILY Isosorbide Mononitrate Er (Isosorbide Mononitrate) 30 Mg Tab.er.24h 30 Mg PO DAILY Hydromorphone Hcl 4 Mg Tablet 4 Mg PO Q6HRS PRN Ferrous Sulfate 325 Mg Tablet 325 Mg PO DAILY Vitamin D (Cholecalciferol (Vitamin D3)) 2,000 Unit Capsule 2,000 Unit PO BID Potassium Chloride 10 Meq Tablet.er 10 Meq PO DAILY Colace (Docusate Sodium) 100 Mg Capsule 100 Mg PO HS Nexium Capsule (Esomeprazole Magnesium) 40 Mg Capsule.dr 2 Cap PO DAILY Levothyroxine Sodium 75 Mcg Tablet 1 Tab PO DAILY Gabapentin (Gabapentin) 100 Mg Capsule 100 Mg PO HS Allopurinol 100 Mg Tablet 1 Tab PO DAILY Vitals/I & O Vital Sign - Last 24 Hours 04/24/20 04/24/20 04/24/20 04/24/20 08:00 08:51 11:00 15:00 Temp 97.3 97.3 97.3 97.3 Pulse 103 102 118 Resp 16 22 B/P (MAP) 130/60 137/69 (91) 129/81 (97) Pulse Ox 99 97 O2 Delivery Nasal Cannula Nasal Cannula Nasal Cannula O2 Flow Rate 6.0 6.0 6.0 04/24/20 04/24/20 04/24/20 04/24/20 19:50 20:05 20:05 23:20 Temp 97.3 97.3 Pulse 130 112 114 Resp 24 B/P (MAP) 146/72 (96) 155/74 (101) Pulse Ox 94 96 O2 Delivery Nasal Cannula Nasal Cannula Nasal Cannula O2 Flow Rate 7.0 7.0 7.0 04/24/20 04/25/20 04/25/20 23:42 00:12 03:15 Temp 97.1 97.1 Pulse 98 Resp 18 24 B/P (MAP) 144/75 (98) Pulse Ox 96 96 93 O2 Delivery Nasal Cannula Nasal Cannula Nasal Cannula O2 Flow Rate 7.0 7.0 7.0 Intake and Output 04/24/20 04/24/20 04/25/20 15:00 23:00 07:00 Intake Total 180 ml 500 ml Output Total 325 ml 400 ml 300 ml Balance -145 ml -400 ml 200 ml Nutrition Consultation Dietary Evaluation: Recommendations by RD: Dietary education by RD, Increase Calorie Intake, Protein supplementation Comments: REC continue regular diet, will add ensure enlive to meals Expected Outcomes/Goals: to meet >75% est nutr needs Malnutrition Findings: Body Fat Depletion (Non Severe: Mild Depletion Weight Status: Underweight DORA WOODSON MD Apr 25, 2020 07:34
[2020-04-25] MEDS: BENZONATATE 100 MG CAPSULE. PO SCH ×3 (08:15→20:33)
[2020-04-25] MEDS: CLOPIDOGREL BISULFATE 75 MG TABLET PO SCH (08:15)
[2020-04-25] MEDS: METOPROLOL SUCC 24HR ER 25 MG TAB.ER.24H. PO SCH (08:15)
[2020-04-25] MEDS: DOXYCYCLINE HYCLATE 100 MG in IV DEXTROSE 5% 100ML 100 ML IV SCH ×2 (08:16→20:30)
--- NOTE | 2020-04-25 08:48 | PDOC ---
PULMONARY PROGRESS NOTES Subjective Remains on 6 liters N/C, denies SOB or increased cough feeling better today Vitals Vital Signs Date Time Temp Pulse Resp B/P (MAP) Pulse Ox O2 Delivery O2 Flow Rate FiO2 04/25/20 08:15 109 136/73 04/25/20 07:00 97.7 18 96 Nasal Cannula 6.0 97.7 ROS: No Nausea, No Chest Pain, No Abdominal Pain General: Alert, Oriented X4 Lungs: Clear, Crackles Cardiovascular: S1 Abdomen: Soft Neuro Exam: Alert Extremities: No Edema Skin: Warm Labs Laboratory Tests Test 04/23/20 12:30 04/23/20 21:00 04/24/20 06:00 04/24/20 11:47 Heparin Anti-Xa Act, Unfractionated < 0.10 IU/mL (0.30-0.70) < 0.10 IU/mL (0.30-0.70) 0.40 IU/mL (0.30-0.70) 0.29 IU/mL (0.30-0.70) Test 04/24/20 18:20 04/25/20 00:40 Heparin Anti-Xa Act, Unfractionated 0.48 IU/mL (0.30-0.70) 0.44 IU/mL (0.30-0.70) White Blood Count 10.3 x10^3/uL (4.0-11.0) Red Blood Count 3.34 x10^6/uL (3.50-5.40) Hemoglobin 10.4 g/dL (12.0-15.5) Hematocrit 31.4 % (36.0-47.0) Mean Corpuscular Volume 94 fL (79-100) Mean Corpuscular Hemoglobin 31 pg (25-35) Mean Corpuscular Hemoglobin Concent 33 g/dL (31-37) Red Cell Distribution Width 14.4 % (11.5-14.5) Platelet Count 235 x10^3/uL (140-400) Neutrophils (%) (Auto) 80 % (31-73) Lymphocytes (%) (Auto) 11 % (24-48) Monocytes (%) (Auto) 8 % (0-9) Eosinophils (%) (Auto) 1 % (0-3) Basophils (%) (Auto) 1 % (0-3) Neutrophils # (Auto) 8.2 x10^3/uL (1.8-7.7) Lymphocytes # (Auto) 1.1 x10^3/uL (1.0-4.8) Monocytes # (Auto) 0.9 x10^3/uL (0.0-1.1) Eosinophils # (Auto) 0.1 x10^3/uL (0.0-0.7) Basophils # (Auto) 0.1 x10^3/uL (0.0-0.2) Sodium Level 144 mmol/L (136-145) Potassium Level 3.3 mmol/L (3.5-5.1) Chloride Level 108 mmol/L (98-107) Carbon Dioxide Level 28 mmol/L (21-32) Anion Gap 8 (6-14) Blood Urea Nitrogen 24 mg/dL (7-20) Creatinine 1.3 mg/dL (0.6-1.0) Estimated GFR (Cockcroft-Gault) 39.3 BUN/Creatinine Ratio 18 (6-20) Glucose Level 126 mg/dL (70-99) Calcium Level 8.5 mg/dL (8.5-10.1) Total Bilirubin 0.3 mg/dL (0.2-1.0) Aspartate Amino Transf (AST/SGOT) 26 U/L (15-37) Alanine Aminotransferase (ALT/SGPT) 29 U/L (14-59) Alkaline Phosphatase 53 U/L (46-116) Total Protein 6.1 g/dL (6.4-8.2) Albumin 2.1 g/dL (3.4-5.0) Albumin/Globulin Ratio 0.5 (1.0-1.7) Laboratory Tests Test 04/24/20 11:47 04/24/20 18:20 04/25/20 00:40 Heparin Anti-Xa Act, Unfractionated 0.29 IU/mL (0.30-0.70) 0.48 IU/mL (0.30-0.70) 0.44 IU/mL (0.30-0.70) White Blood Count 10.3 x10^3/uL (4.0-11.0) Red Blood Count 3.34 x10^6/uL (3.50-5.40) Hemoglobin 10.4 g/dL (12.0-15.5) Hematocrit 31.4 % (36.0-47.0) Mean Corpuscular Volume 94 fL (79-100) Mean Corpuscular Hemoglobin 31 pg (25-35) Mean Corpuscular Hemoglobin Concent 33 g/dL (31-37) Red Cell Distribution Width 14.4 % (11.5-14.5) Platelet Count 235 x10^3/uL (140-400) Neutrophils (%) (Auto) 80 % (31-73) Lymphocytes (%) (Auto) 11 % (24-48) Monocytes (%) (Auto) 8 % (0-9) Eosinophils (%) (Auto) 1 % (0-3) Basophils (%) (Auto) 1 % (0-3) Neutrophils # (Auto) 8.2 x10^3/uL (1.8-7.7) Lymphocytes # (Auto) 1.1 x10^3/uL (1.0-4.8) Monocytes # (Auto) 0.9 x10^3/uL (0.0-1.1) Eosinophils # (Auto) 0.1 x10^3/uL (0.0-0.7) Basophils # (Auto) 0.1 x10^3/uL (0.0-0.2) Sodium Level 144 mmol/L (136-145) Potassium Level 3.3 mmol/L (3.5-5.1) Chloride Level 108 mmol/L (98-107) Carbon Dioxide Level 28 mmol/L (21-32) Anion Gap 8 (6-14) Blood Urea Nitrogen 24 mg/dL (7-20) Creatinine 1.3 mg/dL (0.6-1.0) Estimated GFR (Cockcroft-Gault) 39.3 BUN/Creatinine Ratio 18 (6-20) Glucose Level 126 mg/dL (70-99) Calcium Level 8.5 mg/dL (8.5-10.1) Total Bilirubin 0.3 mg/dL (0.2-1.0) Aspartate Amino Transf (AST/SGOT) 26 U/L (15-37) Alanine Aminotransferase (ALT/SGPT) 29 U/L (14-59) Alkaline Phosphatase 53 U/L (46-116) Total Protein 6.1 g/dL (6.4-8.2) Albumin 2.1 g/dL (3.4-5.0) Albumin/Globulin Ratio 0.5 (1.0-1.7) Medications Active Scripts Medications Dose Route/Sig Max Daily Dose Days Date Category Dose Instructions Proair Hfa Inhaler (Albuterol Sulfate) 8.5 Gm Hfa.aer.ad 2 Puff IH PRN Q4-6HRS PRN 21 04/21/20 Reported Mirtazapine 15 Mg Tablet 15 Mg PO DAILY 04/21/20 Reported Albuterol Sulfate Neb Soln (Albuterol Sulfate) 0.63 Mg/3 Ml Vial.neb 0.63 Mg NEB PRN Q4HRS PRN 04/21/20 Reported Clonidine Hcl 0.1 Mg Tablet 0.1 Mg PO BID PRN 06/30/19 Rx Take as needed for blood pressures greater than 185 systolic (top number) and/or 105 diastolic (bottom number). Ulblyi-Gcwtxvbx-Naae 50-325-40 (Butalb/Acetaminophen/Caffeine) 1 Each Tablet 1 Each PO Q6HRS PRN 06/30/19 Rx Atorvastatin Calcium 20 Mg Tablet 20 Mg PO QHS 30 04/25/19 Rx Clopidogrel (Clopidogrel Bisulfate) 75 Mg Tablet 75 Mg PO DAILYWBKFT 30 04/25/19 Rx Theophylline (Theophylline Anhydrous) 400 Mg Tablet.er 200 Mg PO DAILY 04/22/19 Reported Prochlorperazine Maleate 10 Mg Tablet 1 Tab PO Q6HRS 04/22/19 Reported NITROGLYCERIN SubLingual (Nitroglycerin) 0.4 Mg Tab.subl 0.4 Mg SL PRN Q5MIN PRN 04/22/19 Reported Super B Maxi Complex Caplet (Vitamin B Complex/Folic Acid) 0.4 Mg Tablet 0.4 Mg PO DAILY 04/22/19 Reported Metoprolol Succinate ( Xl ) (Metoprolol Succinate) 25 Mg Tab.er.24h 25 Mg PO DAILY 04/22/19 Reported Isosorbide Mononitrate Er (Isosorbide Mononitrate) 30 Mg Tab.er.24h 30 Mg PO DAILY 04/22/19 Reported Hydromorphone Hcl 4 Mg Tablet 4 Mg PO Q6HRS PRN 05/31/17 Reported Ferrous Sulfate 325 Mg Tablet 325 Mg PO DAILY 05/31/17 Reported Vitamin D (Cholecalciferol (Vitamin D3)) 2,000 Unit Capsule 2,000 Unit PO BID 05/31/17 Reported Potassium Chloride 10 Meq Tablet.er 10 Meq PO DAILY 05/31/17 Reported Colace (Docusate Sodium) 100 Mg Capsule 100 Mg PO HS 03/05/17 Reported Vitamin B-12 (Cyanocobalamin (Vitamin B-12)) 1,000 Mcg Tablet 1,000 Mcg PO DAILY 11/08/16 Rx Nexium Capsule (Esomeprazole Magnesium) 40 Mg Capsule.dr 2 Cap PO DAILY 05/08/16 Reported Levothyroxine Sodium 75 Mcg Tablet 1 Tab PO DAILY 05/08/16 Reported Gabapentin (Gabapentin) 100 Mg Capsule 100 Mg PO HS 05/08/16 Reported Allopurinol 100 Mg Tablet 1 Tab PO DAILY 05/08/16 Reported Comments CTA chest Impression: 1. No evidence of pulmonary embolism. 2. Persistent abnormal right apical density with associated bronchiectasis identified surrounding the right upper lobe bronchus and extending peripherally. Moderate airspace opacity identified in the right lung base slightly increased since prior exam with small bilateral pleural effusions. Subpleural thickening or atelectasis is identified in the right middle lobe of the lung. PET/CT scan is recommended. 3. Severe bilateral lung emphysematous changes. Impression . IMPRESSION: 1. Acute hypoxic respiratory failure secondary to combination of underlying chronic obstructive pulmonary disease with exacerbation, 2. Abnormal chest x-ray with marked volume loss in the right upper lobe secondary to post-radiation changes related to her lung cancer and also some interstitial infiltrates, right lower lobe and left lung suggesting a pneumonia. 3. History of lung cancer diagnosed in 2016, status post radiation and chemo with marked volume loss in the right upper lobe related to tumor and radiation changes. She had a CT chest in 10/2019. At that time, she also had some new reticulonodular opacities in the left lower lobe, likely inflammatory. 4. Leukocytosis secondary to pneumonia.-- improving 5. Acute kidney injury. 6. Abnormal troponin suggesting non-ST myocardial infarction. 7. Abnormal D-dimer, which is a nonspecific thing. This could be related to underlying cancer. . 8. Nonocclusive thrombus in the right popliteal vein Plan . Continue supplemental oxygen currently on 6 liters N/C Cont. PT OT SARS-CoV-2 negative Continue broad-spectrum antibiotics Repeat lower extremity Dopplers, 04/30/2020 Anticoagulation per cardiology Follow HEM/ONC recs DNR IVETTE CHO MD Apr 25, 2020 08:48
[2020-04-25] MEDS ORDERED: POTASSIUM CHLORIDE 20 MEQ TABLET.ER. PO ONE (09:00)
[2020-04-25] MEDS: APIXABAN 5 MG TABLET. PO SCH ×2 (10:11→20:33)
[2020-04-25 11:00] VITALS: BP 149/98
--- NOTE | 2020-04-25 14:35 | PDOC ---
PROGRESS NOTES Subjective Subjective Patient seen and examined Objective Objective Vital Signs Date Time Temp Pulse Resp B/P (MAP) Pulse Ox O2 Delivery O2 Flow Rate FiO2 04/25/20 11:00 97.9 102 20 149/98 (115) 92 Nasal Cannula 6.0 97.9 Intake and Output 04/25/20 07:00 Intake Total 680 ml Output Total 1025 ml Balance -345 ml Intake Oral 380 ml Other 300 ml Output Urine Total 1025 ml # Bowel Movements 2 Physical Exam Abdomen: Normal bowel sounds Heart: Regular rate General: mild distress Lungs: Other (Mildly decreased breath sounds) Assessment Assessment Problems Medical Problems: (1) Elevated troponin Status: Acute (2) Person under investigation for COVID-19 Status: Acute (3) Pneumonia Status: Acute NSTEMI: trop peaked at 3.6 suspect demand mediated, type 2 with underlying pneumonia. EKG SR with no significant changes by comparison. No CP. Echo with an ejection fraction of 25 to 30% with the distal half of the LV being akinetic. Patient is more short of breath today requiring pulmonary support. We will continue medical treatment. Would hold on cardiac catheterization at this time. May start Eliquis. CAD: S/P PCI/RCA 03/2019 Pneumonia with AECOPD: pulmonary following. Covid negative Hx of lung CA with past radiation/chemo treatment. As per the primary service and oncology. Hypothyroidism: on replacement HTN: controlled HLP: on goal RENETTA: Cr improved Sinus tachycardia: physiologic, improved R LLE noncclusive DVT Comment Review of Relevant I have reviewed the following items shirin (where applicable) has been applied. Labs Laboratory Tests Test 04/23/20 21:00 04/24/20 06:00 04/24/20 11:47 04/24/20 18:20 Heparin Anti-Xa Act, Unfractionated < 0.10 IU/mL (0.30-0.70) 0.40 IU/mL (0.30-0.70) 0.29 IU/mL (0.30-0.70) 0.48 IU/mL (0.30-0.70) Test 04/25/20 00:40 White Blood Count 10.3 x10^3/uL (4.0-11.0) Red Blood Count 3.34 x10^6/uL (3.50-5.40) Hemoglobin 10.4 g/dL (12.0-15.5) Hematocrit 31.4 % (36.0-47.0) Mean Corpuscular Volume 94 fL (79-100) Mean Corpuscular Hemoglobin 31 pg (25-35) Mean Corpuscular Hemoglobin Concent 33 g/dL (31-37) Red Cell Distribution Width 14.4 % (11.5-14.5) Platelet Count 235 x10^3/uL (140-400) Neutrophils (%) (Auto) 80 % (31-73) Lymphocytes (%) (Auto) 11 % (24-48) Monocytes (%) (Auto) 8 % (0-9) Eosinophils (%) (Auto) 1 % (0-3) Basophils (%) (Auto) 1 % (0-3) Neutrophils # (Auto) 8.2 x10^3/uL (1.8-7.7) Lymphocytes # (Auto) 1.1 x10^3/uL (1.0-4.8) Monocytes # (Auto) 0.9 x10^3/uL (0.0-1.1) Eosinophils # (Auto) 0.1 x10^3/uL (0.0-0.7) Basophils # (Auto) 0.1 x10^3/uL (0.0-0.2) Heparin Anti-Xa Act, Unfractionated 0.44 IU/mL (0.30-0.70) Sodium Level 144 mmol/L (136-145) Potassium Level 3.3 mmol/L (3.5-5.1) Chloride Level 108 mmol/L (98-107) Carbon Dioxide Level 28 mmol/L (21-32) Anion Gap 8 (6-14) Blood Urea Nitrogen 24 mg/dL (7-20) Creatinine 1.3 mg/dL (0.6-1.0) Estimated GFR (Cockcroft-Gault) 39.3 BUN/Creatinine Ratio 18 (6-20) Glucose Level 126 mg/dL (70-99) Calcium Level 8.5 mg/dL (8.5-10.1) Total Bilirubin 0.3 mg/dL (0.2-1.0) Aspartate Amino Transf (AST/SGOT) 26 U/L (15-37) Alanine Aminotransferase (ALT/SGPT) 29 U/L (14-59) Alkaline Phosphatase 53 U/L (46-116) Total Protein 6.1 g/dL (6.4-8.2) Albumin 2.1 g/dL (3.4-5.0) Albumin/Globulin Ratio 0.5 (1.0-1.7) Laboratory Tests Test 04/24/20 18:20 04/25/20 00:40 Heparin Anti-Xa Act, Unfractionated 0.48 IU/mL (0.30-0.70) 0.44 IU/mL (0.30-0.70) White Blood Count 10.3 x10^3/uL (4.0-11.0) Red Blood Count 3.34 x10^6/uL (3.50-5.40) Hemoglobin 10.4 g/dL (12.0-15.5) Hematocrit 31.4 % (36.0-47.0) Mean Corpuscular Volume 94 fL (79-100) Mean Corpuscular Hemoglobin 31 pg (25-35) Mean Corpuscular Hemoglobin Concent 33 g/dL (31-37) Red Cell Distribution Width 14.4 % (11.5-14.5) Platelet Count 235 x10^3/uL (140-400) Neutrophils (%) (Auto) 80 % (31-73) Lymphocytes (%) (Auto) 11 % (24-48) Monocytes (%) (Auto) 8 % (0-9) Eosinophils (%) (Auto) 1 % (0-3) Basophils (%) (Auto) 1 % (0-3) Neutrophils # (Auto) 8.2 x10^3/uL (1.8-7.7) Lymphocytes # (Auto) 1.1 x10^3/uL (1.0-4.8) Monocytes # (Auto) 0.9 x10^3/uL (0.0-1.1) Eosinophils # (Auto) 0.1 x10^3/uL (0.0-0.7) Basophils # (Auto) 0.1 x10^3/uL (0.0-0.2) Sodium Level 144 mmol/L (136-145) Potassium Level 3.3 mmol/L (3.5-5.1) Chloride Level 108 mmol/L (98-107) Carbon Dioxide Level 28 mmol/L (21-32) Anion Gap 8 (6-14) Blood Urea Nitrogen 24 mg/dL (7-20) Creatinine 1.3 mg/dL (0.6-1.0) Estimated GFR (Cockcroft-Gault) 39.3 BUN/Creatinine Ratio 18 (6-20) Glucose Level 126 mg/dL (70-99) Calcium Level 8.5 mg/dL (8.5-10.1) Total Bilirubin 0.3 mg/dL (0.2-1.0) Aspartate Amino Transf (AST/SGOT) 26 U/L (15-37) Alanine Aminotransferase (ALT/SGPT) 29 U/L (14-59) Alkaline Phosphatase 53 U/L (46-116) Total Protein 6.1 g/dL (6.4-8.2) Albumin 2.1 g/dL (3.4-5.0) Albumin/Globulin Ratio 0.5 (1.0-1.7) Microbiology 04/20/20 Nose/Throat Culture - Final, Complete Medications Current Medications Ceftriaxone Sodium (Rocephin) 1 gm 1X ONCE IVP Last administered on 04/21/20at 01:29; Start 04/21/20 at 00:30; Stop 04/21/20 at 00:31; Status DC Azithromycin 250 ml @ 250 mls/hr 1X ONCE IV Last administered on 04/21/20at 01:30; Start 04/21/20 at 00:30; Stop 04/21/20 at 01:29; Status DC Ondansetron HCl (Zofran) 4 mg PRN Q8HRS PRN IV NAUSEA/VOMITING 1ST CHOICE Last administered on 04/21/20at 01:33; Start 04/21/20 at 00:15; Stop 04/22/20 at 00:14; Status DC Acetaminophen (Tylenol) 650 mg PRN Q4HRS PRN PO FEVER > 100.3'F; Start 04/21/20 at 00:15; Stop 04/22/20 at 00:14; Status DC Hydromorphone HCl (Dilaudid) 0.5 mg PRN Q2HRS PRN IV SEVERE PAIN 7-10 Last administered on 04/24/20at 23:42; Start 04/21/20 at 01:00 Sodium Chloride 500 ml @ 500 mls/hr 1X ONCE IV Last administered on 04/21/20at 01:33; Start 04/21/20 at 02:00; Stop 04/21/20 at 02:59; Status DC Ceftriaxone Sodium (Rocephin) 1 gm Q24H IVP Last administered on 04/25/20at 05:41; Start 04/22/20 at 06:00 Azithromycin 500 mg/Sodium Chloride 250 ml @ 250 mls/hr Q24H IV ; Start 04/22/20 at 06:00; Stop 04/22/20 at 13:29; Status DC Enoxaparin Sodium (Lovenox Per Pharmacy Prophylaxis Dosing) 1 each PRN DAILY PRN MC SEE COMMENTS; Start 04/21/20 at 08:45; Stop 04/21/20 at 10:34; Status DC Enoxaparin Sodium (Lovenox 30mg Syringe) 30 mg Q24H SQ Last administered on 04/21/20at 09:35; Start 04/21/20 at 09:00; Stop 04/21/20 at 10:31; Status DC Heparin Sodium/ Dextrose 250 ml @ 5.832 mls/ hr CONT PRN IV PER PROTOCOL Last administered on 04/23/20at 06:04; Start 04/21/20 at 09:00; Stop 04/23/20 at 08:31; Status DC Heparin Sodium (Porcine) (Heparin Sodium) 1,200 unit PRN Q6HRS PRN IV FOR UFH LEVEL LESS THAN 0.2 Last administered on 04/23/20at 06:15; Start 04/21/20 at 09:00; Stop 04/23/20 at 08:31; Status DC Clopidogrel Bisulfate (Plavix) 75 mg DAILYWBKFT PO Last administered on 04/25/20at 08:15; Start 04/22/20 at 08:00 Info (Anti-Coagulation Monitoring By Pharmacy) 1 each PRN DAILY PRN MC SEE COMMENTS Last administered on 04/22/20at 12:00; Start 04/21/20 at 09:00; Stop 04/23/20 at 09:56; Status DC Magnesium Sulfate 50 ml @ 25 mls/hr 1X ONCE IV Last administered on 04/21/20at 12:46; Start 04/21/20 at 13:00; Stop 04/21/20 at 14:59; Status DC Atorvastatin Calcium (Lipitor) 20 mg QHS PO Last administered on 04/24/20at 20:45; Start 04/21/20 at 21:00 Metoprolol Succinate (Toprol Xl) 25 mg DAILY PO Last administered on 04/25/20at 08:15; Start 04/22/20 at 09:00 Benzonatate (Tessalon Perle) 100 mg [id number] PO Last administered on 04/25/20at 08:15; Start 04/22/20 at 09:00 Benzonatate (Tessalon Perle) 100 mg 1X ONCE PO Last administered on 04/21/20at 23:28; Start 04/21/20 at 23:15; Stop 04/21/20 at 23:16; Status DC Acetaminophen (Tylenol) 500 mg PRN Q6HRS PRN PO MILD PAIN / TEMP > 100.3'F; Start 04/22/20 at 06:45 Heparin Sodium/ Dextrose 250 ml @ 5.832 mls/ hr CONT PRN IV PER PROTOCOL Last administered on 04/24/20at 20:54; Start 04/23/20 at 15:30; Stop 04/25/20 at 09:46; Status DC Heparin Sodium (Porcine) (Heparin Sodium) 1,200 unit PRN Q6HRS PRN IV FOR UFH LEVEL LESS THAN 0.2 Last administered on 04/24/20at 00:00; Start 04/23/20 at 15:30; Stop 04/25/20 at 09:46; Status DC Info (Anti-Coagulation Monitoring By Pharmacy) 1 each PRN DAILY PRN MC SEE COMMENTS; Start 04/23/20 at 15:30 Doxycycline Hyclate 100 mg/ Dextrose 100 ml @ 50 mls/hr Q12HR IV Last administered on 04/25/20at 08:16; Start 04/23/20 at 21:00 Iohexol (Omnipaque 350 Mg/ml) 85 ml 1X ONCE IV Last administered on 04/23/20at 00:12; Start 04/23/20 at 23:45; Stop 04/23/20 at 23:46; Status DC Info (CONTRAST GIVEN -- Rx MONITORING) 1 each PRN DAILY PRN MC SEE COMMENTS; Start 04/23/20 at 23:45; Stop 04/25/20 at 23:44 Sodium Chloride 1,000 ml @ 100 mls/hr Q10H ONCE IV Last administered on 04/24/20at 01:03; Start 04/24/20 at 01:00; Stop 04/24/20 at 10:59; Status DC Potassium Chloride (Klor-Con) 40 meq 1X ONCE PO Last administered on 04/25/20at 10:11; Start 04/25/20 at 09:00; Stop 04/25/20 at 09:01; Status DC Potassium Chloride (Klor-Con) 20 meq DAILYWBKFT PO ; Start 04/26/20 at 08:00 Apixaban (Eliquis) 5 mg BID PO Last administered on 04/25/20at 10:11; Start 04/25/20 at 09:45 Active Scripts Active Clonidine Hcl 0.1 Mg Tablet 0.1 Mg PO BID PRN Take as needed for blood pressures greater than 185 systolic (top number) and/or 105 diastolic (bottom number). [id number] 50-325-40 (Butalb/Acetaminophen/Caffeine) 1 Each Tablet 1 Each PO Q6HRS PRN Atorvastatin Calcium 20 Mg Tablet 20 Mg PO QHS 30 Days Clopidogrel (Clopidogrel Bisulfate) 75 Mg Tablet 75 Mg PO DAILYWBKFT 30 Days Vitamin B-12 (Cyanocobalamin (Vitamin B-12)) 1,000 Mcg Tablet 1,000 Mcg PO DAILY Reported Proair Hfa Inhaler (Albuterol Sulfate) 8.5 Gm Hfa.aer.ad 2 Puff IH PRN Q4-6HRS PRN 21 Days Mirtazapine 15 Mg Tablet 15 Mg PO DAILY Albuterol Sulfate Neb Soln (Albuterol Sulfate) 0.63 Mg/3 Ml Vial.neb 0.63 Mg NEB PRN Q4HRS PRN Theophylline (Theophylline Anhydrous) 400 Mg Tablet.er 200 Mg PO DAILY Prochlorperazine Maleate 10 Mg Tablet 1 Tab PO Q6HRS NITROGLYCERIN SubLingual (Nitroglycerin) 0.4 Mg Tab.subl 0.4 Mg SL PRN Q5MIN PRN Super B Maxi Complex Caplet (Vitamin B Complex/Folic Acid) 0.4 Mg Tablet 0.4 Mg PO DAILY Metoprolol Succinate ( Xl ) (Metoprolol Succinate) 25 Mg Tab.er.24h 25 Mg PO DAILY Isosorbide Mononitrate Er (Isosorbide Mononitrate) 30 Mg Tab.er.24h 30 Mg PO DAILY Hydromorphone Hcl 4 Mg Tablet 4 Mg PO Q6HRS PRN Ferrous Sulfate 325 Mg Tablet 325 Mg PO DAILY Vitamin D (Cholecalciferol (Vitamin D3)) 2,000 Unit Capsule 2,000 Unit PO BID Potassium Chloride 10 Meq Tablet.er 10 Meq PO DAILY Colace (Docusate Sodium) 100 Mg Capsule 100 Mg PO HS Nexium Capsule (Esomeprazole Magnesium) 40 Mg Capsule.dr 2 Cap PO DAILY Levothyroxine Sodium 75 Mcg Tablet 1 Tab PO DAILY Gabapentin (Gabapentin) 100 Mg Capsule 100 Mg PO HS Allopurinol 100 Mg Tablet 1 Tab PO DAILY Vitals/I & O Vital Sign - Last 24 Hours 04/24/20 04/24/20 04/24/20 04/24/20 15:00 19:50 20:05 20:05 Temp 97.3 97.3 Pulse 118 130 112 Resp 22 24 B/P (MAP) 129/81 (97) 146/72 (96) Pulse Ox 97 94 O2 Delivery Nasal Cannula Nasal Cannula Nasal Cannula O2 Flow Rate 6.0 7.0 7.0 04/24/20 04/24/20 04/25/20 04/25/20 23:20 23:42 00:12 03:15 Temp 97.3 97.1 97.3 97.1 Pulse 114 98 Resp 22 18 16 24 B/P (MAP) 155/74 (101) 144/75 (98) Pulse Ox 96 96 96 93 O2 Delivery Nasal Cannula Nasal Cannula Nasal Cannula Nasal Cannula O2 Flow Rate 7.0 7.0 7.0 7.0 04/25/20 04/25/20 04/25/20 04/25/20 07:00 08:00 08:15 11:00 Temp 97.7 97.9 97.7 97.9 Pulse 93 109 102 Resp 18 20 B/P (MAP) 136/73 (94) 136/73 149/98 (115) Pulse Ox 96 92 O2 Delivery Nasal Cannula Nasal Cannula Nasal Cannula O2 Flow Rate 6.0 6.0 6.0 Intake and Output 04/24/20 04/24/20 04/25/20 15:00 23:00 07:00 Intake Total 180 ml 500 ml Output Total 325 ml 400 ml 300 ml Balance -145 ml -400 ml 200 ml Justicifation of Admission Dx: Justifications for Admission: Justification of Admission Dx: Comment: (Pneumonia; elevated troponin) Nutrition Consultation Dietary Evaluation: Recommendations by RD: Dietary education by RD, Increase Calorie Intake, Protein supplementation Comments: REC continue regular diet, will add ensure enlive to meals Expected Outcomes/Goals: to meet >75% est nutr needs Malnutrition Findings: Body Fat Depletion (Non Severe: Mild Depletion Weight Status: Underweight ANKUSH QUIROZ MD Apr 25, 2020 14:35
[2020-04-25 15:00] VITALS: BP 124/78
[2020-04-25 19:15] VITALS: BP 135/71
[2020-04-25] MEDS: ATORVASTATIN CALCIUM 20 MG TABLET PO SCH (20:33)
[2020-04-25] MEDS: HYDROmorphone 2 MG/ML VIAL IV PRN (20:34)
[2020-04-25 23:15] VITALS: BP 141/76
[2020-04-26 03:30] VITALS: BP 157/80
[2020-04-26] MEDS: cefTRIAXone IV Push 1 GM VIAL. IVP SCH (05:37)
[2020-04-26 07:00] VITALS: BP 172/98
[2020-04-26] MEDS ORDERED: ALBUTEROL SULFATE 2.5 MG/3 ML NEBU. NEB PRN (08:30)
[2020-04-26] MEDS: CLOPIDOGREL BISULFATE 75 MG TABLET PO SCH (08:43)
[2020-04-26] MEDS: METOPROLOL SUCC 24HR ER 25 MG TAB.ER.24H. PO SCH (08:43)
[2020-04-26] MEDS: BENZONATATE 100 MG CAPSULE. PO SCH ×3 (08:43→21:35)
[2020-04-26] MEDS: APIXABAN 5 MG TABLET. PO SCH ×2 (08:43→21:35)
[2020-04-26] MEDS: POTASSIUM CHLORIDE 20 MEQ TABLET.ER. PO SCH (08:44)
[2020-04-26] MEDS: DOXYCYCLINE HYCLATE 100 MG in IV DEXTROSE 5% 100ML 100 ML IV SCH ×2 (08:50→21:34)
[2020-04-26] MEDS: IPRATRPIUM/ALBUTEROL 0.5/2.5MG 3 ML NEBU. NEB SCH ×4 (09:00→20:00)
--- NOTE | 2020-04-26 09:47 | PDOC ---
PROGRESS NOTES Chief Complaint Chief Complaint impression Acute Hypoxic Resp Failure - neg covid 04/22 50 plus years of tobacco use and has underlying COPD NSTEMI CAD: S/P PCI Hx of lung CA with past radiation/chemo treatment Hypothyroidism HTN HLP Acute renal failure secondary to vasomotor nephropathy hypomag Leukocytosis Underweight 04/26 D/W RN The patient was evaluated during the global COVID-19 pandemic, and that diagn osis was suspected/considered upon their initial presentation. Their evaluation, treatment and testing was consistent with current guidelines for patients who present with complaints or symptoms that may be related to COVID- 19. History of Present Illness History of Present Illness Ms Chauhan is an 79 yo F w/ PMHx CAD s/p PCI, lung cancer who presents with sob since 2 days ago reports non-productive cough. patient normally wears 3 liters of 02 at home. lives with son and daughter who alternate taking care of her. patient hard of hearing so hx difficult to obtain. per daughter, no chest pain, GI symptoms, anosmia. patients daughter's son works in a detention and did have covid 1 month ago. daughter denies recent exposure though. patient seen on floor and on 15 liters. chest xray shows: Heart is not enlarged. Aortic calcifications are seen. Right hilar prominence and right upper lung opacities are again seen. Background of interstitial prominence. Patchy opacities are seen in the right mid and lower lung may represent superimposed consolidation. Small right pleural effusion. No pneumothorax. 50 plus years of tobacco use and has underlying COPD, STOPPED SMOKING 2016 New reticulonodular opacities in the basilar left lower lobe, 10/2019 ct chest new from prior study. Infectious or inflammatory process, however metastatic disease is also possible. 04/23: She is still c/o substernal CP today and some bilateral LE swelling and pain. Afebrile, tachycardic, WBC now up to 17. CTPA: 1. No evidence of pulmonary embolism. 2. Persistent abnormal right apical density with associated bronchiectasis identified surrounding the right upper lobe bronchus and extending peripherally. Moderate airspace opacity identified in the right lung base slightly increased since prior exam with small bilateral pleural effusions. Subpleural thickening or atelectasis is identified in the right middle lobe of the lung. PET/CT scan is recommended. 3. Severe bilateral lung emphysematous changes. 04/24: She is a bit less short of breath today, still with some chest tightness. O2 6L. 04/26 O2 still at 6L. Shortness of breath the same. Discussed with cardiology no plans for intervention. She has not been out of bed has been using bedpan for bowel movements. Goal is to go home. Plan: Stop heparin, needs full anticoagulation with eliquis for DVT with known malignancy, Urgent outpatient PET scan Treat pneumonia, added doxycycline Treat COPD Wean O2 as tolerated Formal PT/OT evaluation. Family goal is home, if this is realistic she will need home therapy. 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 COMMENT: Immunoperoxiedase stains block A1: CK7: negative TTF1: negative P40: positive Napsin: negative CK20: negative Chromogranin: negative Synaptophysen: negative The positive P40 staining is consistent with squamous cell carcinoma. This case is also reviewed by Dr. Grace Cartagena. This case was discussed with Dr. Melissa Lo on 05/09/2016 at 12pm. Assessment and Plan Assessmemt and Plan Problems Medical Problems: (1) Elevated troponin Status: Acute (2) Person under investigation for COVID-19 Status: Acute (3) Pneumonia Status: Acute Comment Review of Relevant I have reviewed the following items shirin (where applicable) has been applied. Labs Laboratory Tests Test 04/24/20 11:47 04/24/20 18:20 04/25/20 00:40 Heparin Anti-Xa Act, Unfractionated 0.29 IU/mL (0.30-0.70) 0.48 IU/mL (0.30-0.70) 0.44 IU/mL (0.30-0.70) White Blood Count 10.3 x10^3/uL (4.0-11.0) Red Blood Count 3.34 x10^6/uL (3.50-5.40) Hemoglobin 10.4 g/dL (12.0-15.5) Hematocrit 31.4 % (36.0-47.0) Mean Corpuscular Volume 94 fL (79-100) Mean Corpuscular Hemoglobin 31 pg (25-35) Mean Corpuscular Hemoglobin Concent 33 g/dL (31-37) Red Cell Distribution Width 14.4 % (11.5-14.5) Platelet Count 235 x10^3/uL (140-400) Neutrophils (%) (Auto) 80 % (31-73) Lymphocytes (%) (Auto) 11 % (24-48) Monocytes (%) (Auto) 8 % (0-9) Eosinophils (%) (Auto) 1 % (0-3) Basophils (%) (Auto) 1 % (0-3) Neutrophils # (Auto) 8.2 x10^3/uL (1.8-7.7) Lymphocytes # (Auto) 1.1 x10^3/uL (1.0-4.8) Monocytes # (Auto) 0.9 x10^3/uL (0.0-1.1) Eosinophils # (Auto) 0.1 x10^3/uL (0.0-0.7) Basophils # (Auto) 0.1 x10^3/uL (0.0-0.2) Sodium Level 144 mmol/L (136-145) Potassium Level 3.3 mmol/L (3.5-5.1) Chloride Level 108 mmol/L (98-107) Carbon Dioxide Level 28 mmol/L (21-32) Anion Gap 8 (6-14) Blood Urea Nitrogen 24 mg/dL (7-20) Creatinine 1.3 mg/dL (0.6-1.0) Estimated GFR (Cockcroft-Gault) 39.3 BUN/Creatinine Ratio 18 (6-20) Glucose Level 126 mg/dL (70-99) Calcium Level 8.5 mg/dL (8.5-10.1) Total Bilirubin 0.3 mg/dL (0.2-1.0) Aspartate Amino Transf (AST/SGOT) 26 U/L (15-37) Alanine Aminotransferase (ALT/SGPT) 29 U/L (14-59) Alkaline Phosphatase 53 U/L (46-116) Total Protein 6.1 g/dL (6.4-8.2) Albumin 2.1 g/dL (3.4-5.0) Albumin/Globulin Ratio 0.5 (1.0-1.7) Microbiology 04/20/20 Nose/Throat Culture - Final, Complete Medications Current Medications Ceftriaxone Sodium (Rocephin) 1 gm 1X ONCE IVP Last administered on 04/21/20 01:29; Start 04/21/20 at 00:30; Stop 04/21/20 at 00:31; Status DC Azithromycin 250 ml @ 250 mls/hr 1X ONCE IV Last administered on 04/21/20at 01:30; Start 04/21/20 at 00:30; Stop 04/21/20 at 01:29; Status DC Ondansetron HCl (Zofran) 4 mg PRN Q8HRS PRN IV NAUSEA/VOMITING 1ST CHOICE Last administered on 04/21/20at 01:33; Start 04/21/20 at 00:15; Stop 04/22/20 at 00:14; Status DC Acetaminophen (Tylenol) 650 mg PRN Q4HRS PRN PO FEVER > 100.3'F; Start 04/21/20 at 00:15; Stop 04/22/20 at 00:14; Status DC Hydromorphone HCl (Dilaudid) 0.5 mg PRN Q2HRS PRN IV SEVERE PAIN 7-10 Last administered on 04/25/20at 20:34; Start 04/21/20 at 01:00 Sodium Chloride 500 ml @ 500 mls/hr 1X ONCE IV Last administered on 04/21/20at 01:33; Start 04/21/20 at 02:00; Stop 04/21/20 at 02:59; Status DC Ceftriaxone Sodium (Rocephin) 1 gm Q24H IVP Last administered on 04/26/20at 05:37; Start 04/22/20 at 06:00 Azithromycin 500 mg/Sodium Chloride 250 ml @ 250 mls/hr Q24H IV ; Start 04/22/20 at 06:00; Stop 04/22/20 at 13:29; Status DC Enoxaparin Sodium (Lovenox Per Pharmacy Prophylaxis Dosing) 1 each PRN DAILY PRN MC SEE COMMENTS; Start 04/21/20 at 08:45; Stop 04/21/20 at 10:34; Status DC Enoxaparin Sodium (Lovenox 30mg Syringe) 30 mg Q24H SQ Last administered on 04/21/20at 09:35; Start 04/21/20 at 09:00; Stop 04/21/20 at 10:31; Status DC Heparin Sodium/ Dextrose 250 ml @ 5.832 mls/ hr CONT PRN IV PER PROTOCOL Last administered on 04/23/20at 06:04; Start 04/21/20 at 09:00; Stop 04/23/20 at 08:31; Status DC Heparin Sodium (Porcine) (Heparin Sodium) 1,200 unit PRN Q6HRS PRN IV FOR UFH LEVEL LESS THAN 0.2 Last administered on 04/23/20at 06:15; Start 04/21/20 at 09:00; Stop 04/23/20 at 08:31; Status DC Clopidogrel Bisulfate (Plavix) 75 mg DAILYWBKFT PO Last administered on 04/26/20at 08:43; Start 04/22/20 at 08:00 Info (Anti-Coagulation Monitoring By Pharmacy) 1 each PRN DAILY PRN MC SEE COMMENTS Last administered on 04/22/20at 12:00; Start 04/21/20 at 09:00; Stop 04/23/20 at 09:56; Status DC Magnesium Sulfate 50 ml @ 25 mls/hr 1X ONCE IV Last administered on 04/21/20at 12:46; Start 04/21/20 at 13:00; Stop 04/21/20 at 14:59; Status DC Atorvastatin Calcium (Lipitor) 20 mg QHS PO Last administered on 04/25/20at 20:33; Start 04/21/20 at 21:00 Metoprolol Succinate (Toprol Xl) 25 mg DAILY PO Last administered on 04/26/20at 08:43; Start 04/22/20 at 09:00 Benzonatate (Tessalon Perle) 100 mg [id number] PO Last administered on 04/26/20at 08:43; Start 04/22/20 at 09:00 Benzonatate (Tessalon Perle) 100 mg 1X ONCE PO Last administered on 04/21/20at 23:28; Start 04/21/20 at 23:15; Stop 04/21/20 at 23:16; Status DC Acetaminophen (Tylenol) 500 mg PRN Q6HRS PRN PO MILD PAIN / TEMP > 100.3'F; Start 04/22/20 at 06:45 Heparin Sodium/ Dextrose 250 ml @ 5.832 mls/ hr CONT PRN IV PER PROTOCOL Last administered on 04/24/20at 20:54; Start 04/23/20 at 15:30; Stop 04/25/20 at 09:46; Status DC Heparin Sodium (Porcine) (Heparin Sodium) 1,200 unit PRN Q6HRS PRN IV FOR UFH LEVEL LESS THAN 0.2 Last administered on 04/24/20at 00:00; Start 04/23/20 at 15:30; Stop 04/25/20 at 09:46; Status DC Info (Anti-Coagulation Monitoring By Pharmacy) 1 each PRN DAILY PRN MC SEE COMMENTS; Start 04/23/20 at 15:30 Doxycycline Hyclate 100 mg/ Dextrose 100 ml @ 50 mls/hr Q12HR IV Last admini stered on 04/26/20at 08:50; Start 04/23/20 at 21:00 Iohexol (Omnipaque 350 Mg/ml) 85 ml 1X ONCE IV Last administered on 04/23/20at 00:12; Start 04/23/20 at 23:45; Stop 04/23/20 at 23:46; Status DC Info (CONTRAST GIVEN -- Rx MONITORING) 1 each PRN DAILY PRN MC SEE COMMENTS; Start 04/23/20 at 23:45; Stop 04/25/20 at 23:44; Status DC Sodium Chloride 1,000 ml @ 100 mls/hr Q10H ONCE IV Last administered on 04/24/20at 01:03; Start 04/24/20 at 01:00; Stop 04/24/20 at 10:59; Status DC Potassium Chloride (Klor-Con) 40 meq 1X ONCE PO Last administered on 04/25/20at 10:11; Start 04/25/20 at 09:00; Stop 04/25/20 at 09:01; Status DC Potassium Chloride (Klor-Con) 20 meq DAILYWBKFT PO Last administered on 04/26/20at 08:44; Start 04/26/20 at 08:00 Apixaban (Eliquis) 5 mg BID PO Last administered on 04/26/20at 08:43; Start 04/25/20 at 09:45 Albuterol/ Ipratropium (Duoneb) 3 ml RTQID NEB ; Start 04/26/20 at 09:00 Budesonide (Pulmicort) 0.5 mg RTBID NEB ; Start 04/26/20 at 09:00 Albuterol Sulfate (Ventolin Neb Soln) 2.5 mg PRN Q4HRS PRN NEB SHORTNESS OF BREATH; Start 04/26/20 at 08:30 Active Scripts Active Clonidine Hcl 0.1 Mg Tablet 0.1 Mg PO BID PRN Take as needed for blood pressures greater than 185 systolic (top number) and/or 105 diastolic (bottom number). [id number] 50-325-40 (Butalb/Acetaminophen/Caffeine) 1 Each Tablet 1 Each PO Q6HRS PRN Atorvastatin Calcium 20 Mg Tablet 20 Mg PO QHS 30 Days Clopidogrel (Clopidogrel Bisulfate) 75 Mg Tablet 75 Mg PO DAILYWBKFT 30 Days Vitamin B-12 (Cyanocobalamin (Vitamin B-12)) 1,000 Mcg Tablet 1,000 Mcg PO DAILY Reported Proair Hfa Inhaler (Albuterol Sulfate) 8.5 Gm Hfa.aer.ad 2 Puff IH PRN Q4-6HRS PRN 21 Days Mirtazapine 15 Mg Tablet 15 Mg PO DAILY Albuterol Sulfate Neb Soln (Albuterol Sulfate) 0.63 Mg/3 Ml Vial.neb 0.63 Mg NEB PRN Q4HRS PRN Theophylline (Theophylline Anhydrous) 400 Mg Tablet.er 200 Mg PO DAILY Prochlorperazine Maleate 10 Mg Tablet 1 Tab PO Q6HRS NITROGLYCERIN SubLingual (Nitroglycerin) 0.4 Mg Tab.subl 0.4 Mg SL PRN Q5MIN PRN Super B Maxi Complex Caplet (Vitamin B Complex/Folic Acid) 0.4 Mg Tablet 0.4 Mg PO DAILY Metoprolol Succinate ( Xl ) (Metoprolol Succinate) 25 Mg Tab.er.24h 25 Mg PO DAILY Isosorbide Mononitrate Er (Isosorbide Mononitrate) 30 Mg Tab.er.24h 30 Mg PO DAILY Hydromorphone Hcl 4 Mg Tablet 4 Mg PO Q6HRS PRN Ferrous Sulfate 325 Mg Tablet 325 Mg PO DAILY Vitamin D (Cholecalciferol (Vitamin D3)) 2,000 Unit Capsule 2,000 Unit PO BID Potassium Chloride 10 Meq Tablet.er 10 Meq PO DAILY Colace (Docusate Sodium) 100 Mg Capsule 100 Mg PO HS Nexium Capsule (Esomeprazole Magnesium) 40 Mg Capsule.dr 2 Cap PO DAILY Levothyroxine Sodium 75 Mcg Tablet 1 Tab PO DAILY Gabapentin (Gabapentin) 100 Mg Capsule 100 Mg PO HS Allopurinol 100 Mg Tablet 1 Tab PO DAILY Vitals/I & O Vital Sign - Last 24 Hours 04/25/20 04/25/20 04/25/20 04/25/20 11:00 15:00 19:15 20:00 Temp 97.9 97.8 98.4 97.9 97.8 98.4 Pulse 102 105 106 Resp 20 18 22 B/P (MAP) 149/98 (115) 124/78 (93) 135/71 (92) Pulse Ox 92 97 97 O2 Delivery Nasal Cannula Nasal Cannula Nasal Cannula Nasal Cannula O2 Flow Rate 6.0 6.0 6.0 6.0 04/25/20 04/25/20 04/25/20 04/25/20 20:34 21:04 23:15 23:30 Temp 97.7 97.7 Pulse 115 Resp 18 24 B/P (MAP) 141/76 (97) Pulse Ox 97 97 56 91 O2 Delivery Nasal Cannula Nasal Cannula Room Air Nasal Cannula O2 Flow Rate 6.0 6.0 6.0 04/26/20 04/26/20 04/26/20 04/26/20 03:30 07:00 08:00 08:43 Temp 98.1 98.8 98.1 98.8 Pulse 117 106 108 Resp 20 B/P (MAP) 157/80 (105) 172/98 (122) 172/98 Pulse Ox 94 93 O2 Delivery Nasal Cannula Nasal Cannula Nasal Cannula O2 Flow Rate 6.0 6.0 6.0 Intake and Output 04/25/20 04/25/20 04/26/20 15:00 23:00 07:00 Intake Total 100 ml Output Total 50 ml 100 ml 150 ml Balance 50 ml -100 ml -150 ml Nutrition Consultation Dietary Evaluation: Recommendations by RD: Dietary education by RD, Increase Calorie Intake, Protein supplementation Comments: REC continue regular diet, will add ensure enlive to meals Expected Outcomes/Goals: to meet >75% est nutr needs Malnutrition Findings: Body Fat Depletion (Non Severe: Mild Depletion Weight Status: Underweight BUCK NUNES MD Apr 26, 2020 09:47
[2020-04-26] MEDS: BUDESONIDE 0.5 MG/2 ML NEBU. NEB SCH ×2 (10:39→20:00)
[2020-04-26 11:00] VITALS: BP 161/81
--- NOTE | 2020-04-26 11:42 | NUR ---
SS following up with discharge planning. SS reviewed pt chart and discussed with pt RN. PT/OT recommended longterm unit. Pt requiring oxygen. Pt has home oxygen. SS met with pt to discuss longterm unit and discharge planning. Pt declining longterm unit and requested that SS contact her daughter, Nida. SS contacted pt's daughter and discussed longterm unit and discharge planning. Pt's daughter reported that pt lives at home alone and she and pt's son care for pt at home. She reported that pt does spend three nights per week at home alone. She reported that pt is resistant to longterm unit and does not participate. She reported that pt will only participate when she wants to. She reported that they have had good experiences with [facility] [place] in the past. Pt's daughter came to hospital to attempt to discuss longterm unit with pt. Pt continuing to decline longterm unit. Pt's daughter reported that pt will return to home with assistance from [facility] and [facility], ; fax [phone]. Pt's RN notified. SS will continue to follow for discharge planning.
--- NOTE | 2020-04-26 12:28 | PDOC ---
PULMONARY PROGRESS NOTES Subjective Remains on 6 liters N/C, denies SOB or increased cough feeling better today Vitals Vital Signs Date Time Temp Pulse Resp B/P (MAP) Pulse Ox O2 Delivery O2 Flow Rate FiO2 04/26/20 11:00 98.5 108 20 161/81 (107) 96 Nasal Cannula 6.0 98.5 ROS: No Nausea, No Chest Pain, No Abdominal Pain General: Alert, Oriented X4 Lungs: Clear, Crackles Cardiovascular: S1 Abdomen: Soft Neuro Exam: Alert Extremities: No Edema Skin: Warm Labs Laboratory Tests Test 04/24/20 18:20 04/25/20 00:40 Heparin Anti-Xa Act, Unfractionated 0.48 IU/mL (0.30-0.70) 0.44 IU/mL (0.30-0.70) White Blood Count 10.3 x10^3/uL (4.0-11.0) Red Blood Count 3.34 x10^6/uL (3.50-5.40) Hemoglobin 10.4 g/dL (12.0-15.5) Hematocrit 31.4 % (36.0-47.0) Mean Corpuscular Volume 94 fL (79-100) Mean Corpuscular Hemoglobin 31 pg (25-35) Mean Corpuscular Hemoglobin Concent 33 g/dL (31-37) Red Cell Distribution Width 14.4 % (11.5-14.5) Platelet Count 235 x10^3/uL (140-400) Neutrophils (%) (Auto) 80 % (31-73) Lymphocytes (%) (Auto) 11 % (24-48) Monocytes (%) (Auto) 8 % (0-9) Eosinophils (%) (Auto) 1 % (0-3) Basophils (%) (Auto) 1 % (0-3) Neutrophils # (Auto) 8.2 x10^3/uL (1.8-7.7) Lymphocytes # (Auto) 1.1 x10^3/uL (1.0-4.8) Monocytes # (Auto) 0.9 x10^3/uL (0.0-1.1) Eosinophils # (Auto) 0.1 x10^3/uL (0.0-0.7) Basophils # (Auto) 0.1 x10^3/uL (0.0-0.2) Sodium Level 144 mmol/L (136-145) Potassium Level 3.3 mmol/L (3.5-5.1) Chloride Level 108 mmol/L (98-107) Carbon Dioxide Level 28 mmol/L (21-32) Anion Gap 8 (6-14) Blood Urea Nitrogen 24 mg/dL (7-20) Creatinine 1.3 mg/dL (0.6-1.0) Estimated GFR (Cockcroft-Gault) 39.3 BUN/Creatinine Ratio 18 (6-20) Glucose Level 126 mg/dL (70-99) Calcium Level 8.5 mg/dL (8.5-10.1) Total Bilirubin 0.3 mg/dL (0.2-1.0) Aspartate Amino Transf (AST/SGOT) 26 U/L (15-37) Alanine Aminotransferase (ALT/SGPT) 29 U/L (14-59) Alkaline Phosphatase 53 U/L (46-116) Total Protein 6.1 g/dL (6.4-8.2) Albumin 2.1 g/dL (3.4-5.0) Albumin/Globulin Ratio 0.5 (1.0-1.7) Medications Active Scripts Medications Dose Route/Sig Max Daily Dose Days Date Category Dose Instructions Proair Hfa Inhaler (Albuterol Sulfate) 8.5 Gm Hfa.aer.ad 2 Puff IH PRN Q4-6HRS PRN 21 04/21/20 Reported Mirtazapine 15 Mg Tablet 15 Mg PO DAILY 04/21/20 Reported Albuterol Sulfate Neb Soln (Albuterol Sulfate) 0.63 Mg/3 Ml Vial.neb 0.63 Mg NEB PRN Q4HRS PRN 04/21/20 Reported Clonidine Hcl 0.1 Mg Tablet 0.1 Mg PO BID PRN 06/30/19 Rx Take as needed for blood pressures greater than 185 systolic (top number) and/or 105 diastolic (bottom number). [id number] 50-325-40 (Butalb/Acetaminophen/Caffeine) 1 Each Tablet 1 Each PO Q6HRS PRN 06/30/19 Rx Atorvastatin Calcium 20 Mg Tablet 20 Mg PO QHS 30 04/25/19 Rx Clopidogrel (Clopidogrel Bisulfate) 75 Mg Tablet 75 Mg PO DAILYWBKFT 30 04/25/19 Rx Theophylline (Theophylline Anhydrous) 400 Mg Tablet.er 200 Mg PO DAILY 04/22/19 Reported Prochlorperazine Maleate 10 Mg Tablet 1 Tab PO Q6HRS 04/22/19 Reported NITROGLYCERIN SubLingual (Nitroglycerin) 0.4 Mg Tab.subl 0.4 Mg SL PRN Q5MIN PRN 04/22/19 Reported Super B Maxi Complex Caplet (Vitamin B Complex/Folic Acid) 0.4 Mg Tablet 0.4 Mg PO DAILY 04/22/19 Reported Metoprolol Succinate ( Xl ) (Metoprolol Succinate) 25 Mg Tab.er.24h 25 Mg PO DAILY 04/22/19 Reported Isosorbide Mononitrate Er (Isosorbide Mononitrate) 30 Mg Tab.er.24h 30 Mg PO DAILY 04/22/19 Reported Hydromorphone Hcl 4 Mg Tablet 4 Mg PO Q6HRS PRN 05/31/17 Reported Ferrous Sulfate 325 Mg Tablet 325 Mg PO DAILY 05/31/17 Reported Vitamin D (Cholecalciferol (Vitamin D3)) 2,000 Unit Capsule 2,000 Unit PO BID 05/31/17 Reported Potassium Chloride 10 Meq Tablet.er 10 Meq PO DAILY 05/31/17 Reported Colace (Docusate Sodium) 100 Mg Capsule 100 Mg PO HS 03/05/17 Reported Vitamin B-12 (Cyanocobalamin (Vitamin B-12)) 1,000 Mcg Tablet 1,000 Mcg PO DAILY 11/08/16 Rx Nexium Capsule (Esomeprazole Magnesium) 40 Mg Capsule.dr 2 Cap PO DAILY 05/08/16 Reported Levothyroxine Sodium 75 Mcg Tablet 1 Tab PO DAILY 05/08/16 Reported Gabapentin (Gabapentin) 100 Mg Capsule 100 Mg PO HS 05/08/16 Reported Allopurinol 100 Mg Tablet 1 Tab PO DAILY 05/08/16 Reported Comments CTA chest Impression: 1. No evidence of pulmonary embolism. 2. Persistent abnormal right apical density with associated bronchiectasis identified surrounding the right upper lobe bronchus and extending peripherally. Moderate airspace opacity identified in the right lung base slightly increased since prior exam with small bilateral pleural effusions. Subpleural thickening or atelectasis is identified in the right middle lobe of the lung. PET/CT scan is recommended. 3. Severe bilateral lung emphysematous changes. Impression . IMPRESSION: 1. Acute hypoxic respiratory failure secondary to combination of underlying chronic obstructive pulmonary disease with exacerbation, 2. Abnormal chest x-ray with marked volume loss in the right upper lobe secondary to post-radiation changes related to her lung cancer and also some interstitial infiltrates, right lower lobe and left lung suggesting a pneumonia. 3. History of lung cancer diagnosed in 2016, status post radiation and chemo with marked volume loss in the right upper lobe related to tumor and radiation changes. She had a CT chest in 10/2019. At that time, she also had some new reticulonodular opacities in the left lower lobe, likely inflammatory. 4. Leukocytosis secondary to pneumonia.-- improving 5. Acute kidney injury. 6. Abnormal troponin suggesting non-ST myocardial infarction. 7. Abnormal D-dimer, which is a nonspecific thing. This could be related to underlying cancer. . 8. Nonocclusive thrombus in the right popliteal vein 9. No evidence of pulmonary embolism on CT chest 10. Persistent abnormal right apical density in patient with known lung cancer Plan . Case discussed with Dr. Singh, continue anticoagulation Continue supplemental oxygen currently on 6 liters N/C Cont. PT OT SARS-CoV-2 negative Continue broad-spectrum antibiotics Repeat lower extremity Dopplers, 04/30/2020 Anticoagulation per cardiology Follow HEM/ONC recs, outpatient PET scan DNR IVETTE CHO MD Apr 26, 2020 12:28
[2020-04-26 15:00] VITALS: BP 181/94
[2020-04-26] MEDS: HYDROmorphone 2 MG/ML VIAL IV PRN (15:09)
--- NOTE | 2020-04-26 16:00 | PDOC ---
PROGRESS NOTES Subjective Subjective Patient seen and examined Objective Objective Vital Signs Date Time Temp Pulse Resp B/P (MAP) Pulse Ox O2 Delivery O2 Flow Rate FiO2 04/26/20 15:23 93 Nasal Cannula 5.0 04/26/20 15:00 98.6 111 20 181/94 (123) 98.6 Intake and Output 04/26/20 06:59 Intake Total 100 ml Output Total 300 ml Balance -200 ml IV Total 100 ml Output Urine Total 300 ml # Bowel Movements 4 Physical Exam Abdomen: Normal bowel sounds Heart: Regular rate General: mild distress Lungs: Other (Mildly decreased breath sounds) Assessment Assessment Problems Medical Problems: (1) Elevated troponin Status: Acute (2) Person under investigation for COVID-19 Status: Acute (3) Pneumonia Status: Acute NSTEMI: trop peaked at 3.6 suspect demand mediated, type 2 with underlying pneumonia. EKG SR with no significant changes by comparison. No CP. Echo with an ejection fraction of 25 to 30% with the distal half of the LV being akinetic. Patient is feeling mildly better today. Eliquis has been started. I discussed possible catheterization with the patient and her daughter. Risks and benefits were discussed. At this time they would like to continue on medical treatment. CAD: S/P PCI/RCA 03/2019 Pneumonia with AECOPD: pulmonary following. Covid negative Hx of lung CA with past radiation/chemo treatment. As per the primary service and oncology. Hypothyroidism: on replacement HTN: controlled HLP: on goal RENETTA: Cr improved Sinus tachycardia: physiologic, improved R LLE noncclusive DVT. On Eliquis Comment Review of Relevant I have reviewed the following items shirin (where applicable) has been applied. Labs Laboratory Tests Test 04/24/20 18:20 04/25/20 00:40 Heparin Anti-Xa Act, Unfractionated 0.48 IU/mL (0.30-0.70) 0.44 IU/mL (0.30-0.70) White Blood Count 10.3 x10^3/uL (4.0-11.0) Red Blood Count 3.34 x10^6/uL (3.50-5.40) Hemoglobin 10.4 g/dL (12.0-15.5) Hematocrit 31.4 % (36.0-47.0) Mean Corpuscular Volume 94 fL (79-100) Mean Corpuscular Hemoglobin 31 pg (25-35) Mean Corpuscular Hemoglobin Concent 33 g/dL (31-37) Red Cell Distribution Width 14.4 % (11.5-14.5) Platelet Count 235 x10^3/uL (140-400) Neutrophils (%) (Auto) 80 % (31-73) Lymphocytes (%) (Auto) 11 % (24-48) Monocytes (%) (Auto) 8 % (0-9) Eosinophils (%) (Auto) 1 % (0-3) Basophils (%) (Auto) 1 % (0-3) Neutrophils # (Auto) 8.2 x10^3/uL (1.8-7.7) Lymphocytes # (Auto) 1.1 x10^3/uL (1.0-4.8) Monocytes # (Auto) 0.9 x10^3/uL (0.0-1.1) Eosinophils # (Auto) 0.1 x10^3/uL (0.0-0.7) Basophils # (Auto) 0.1 x10^3/uL (0.0-0.2) Sodium Level 144 mmol/L (136-145) Potassium Level 3.3 mmol/L (3.5-5.1) Chloride Level 108 mmol/L (98-107) Carbon Dioxide Level 28 mmol/L (21-32) Anion Gap 8 (6-14) Blood Urea Nitrogen 24 mg/dL (7-20) Creatinine 1.3 mg/dL (0.6-1.0) Estimated GFR (Cockcroft-Gault) 39.3 BUN/Creatinine Ratio 18 (6-20) Glucose Level 126 mg/dL (70-99) Calcium Level 8.5 mg/dL (8.5-10.1) Total Bilirubin 0.3 mg/dL (0.2-1.0) Aspartate Amino Transf (AST/SGOT) 26 U/L (15-37) Alanine Aminotransferase (ALT/SGPT) 29 U/L (14-59) Alkaline Phosphatase 53 U/L (46-116) Total Protein 6.1 g/dL (6.4-8.2) Albumin 2.1 g/dL (3.4-5.0) Albumin/Globulin Ratio 0.5 (1.0-1.7) Microbiology 6/23/20 Nose/Throat Culture - Final, Complete Medications Current Medications Ceftriaxone Sodium (Rocephin) 1 gm 1X ONCE IVP Last administered on 04/21/20at 01:29; Start 04/21/20 at 00:30; Stop 04/21/20 at 00:31; Status DC Azithromycin 250 ml @ 250 mls/hr 1X ONCE IV Last administered on 04/21/20at 01:30; Start 04/21/20 at 00:30; Stop 04/21/20 at 01:29; Status DC Ondansetron HCl (Zofran) 4 mg PRN Q8HRS PRN IV NAUSEA/VOMITING 1ST CHOICE Last administered on 04/21/20at 01:33; Start 04/21/20 at 00:15; Stop 04/22/20 at 00:14; Status DC Acetaminophen (Tylenol) 650 mg PRN Q4HRS PRN PO FEVER > 100.3'F; Start 04/21/20 at 00:15; Stop 04/22/20 at 00:14; Status DC Hydromorphone HCl (Dilaudid) 0.5 mg PRN Q2HRS PRN IV SEVERE PAIN 7-10 Last administered on 04/26/20at 15:09; Start 04/21/20 at 01:00 Sodium Chloride 500 ml @ 500 mls/hr 1X ONCE IV Last administered on 04/21/20at 01:33; Start 04/21/20 at 02:00; Stop 04/21/20 at 02:59; Status DC Ceftriaxone Sodium (Rocephin) 1 gm Q24H IVP Last administered on 04/26/20at 05:37; Start 04/22/20 at 06:00 Azithromycin 500 mg/Sodium Chloride 250 ml @ 250 mls/hr Q24H IV ; Start 04/22/20 at 06:00; Stop 04/22/20 at 13:29; Status DC Enoxaparin Sodium (Lovenox Per Pharmacy Prophylaxis Dosing) 1 each PRN DAILY PRN MC SEE COMMENTS; Start 04/21/20 at 08:45; Stop 04/21/20 at 10:34; Status DC Enoxaparin Sodium (Lovenox 30mg Syringe) 30 mg Q24H SQ Last administered on 04/21/20at 09:35; Start 04/21/20 at 09:00; Stop 04/21/20 at 10:31; Status DC Heparin Sodium/ Dextrose 250 ml @ 5.832 mls/ hr CONT PRN IV PER PROTOCOL Last administered on 04/23/20at 06:04; Start 04/21/20 at 09:00; Stop 04/23/20 at 08:31; Status DC Heparin Sodium (Porcine) (Heparin Sodium) 1,200 unit PRN Q6HRS PRN IV FOR UFH LEVEL LESS THAN 0.2 Last administered on 04/23/20at 06:15; Start 04/21/20 at 09:00; Stop 04/23/20 at 08:31; Status DC Clopidogrel Bisulfate (Plavix) 75 mg DAILYWBKFT PO Last administered on 04/26/20at 08:43; Start 04/22/20 at 08:00 Info (Anti-Coagulation Monitoring By Pharmacy) 1 each PRN DAILY PRN MC SEE COMMENTS Last administered on 04/22/20at 12:00; Start 04/21/20 at 09:00; Stop 04/23/20 at 09:56; Status DC Magnesium Sulfate 50 ml @ 25 mls/hr 1X ONCE IV Last administered on 04/21/20at 12:46; Start 04/21/20 at 13:00; Stop 04/21/20 at 14:59; Status DC Atorvastatin Calcium (Lipitor) 20 mg QHS PO Last administered on 04/25/20at 20:33; Start 04/21/20 at 21:00 Metoprolol Succinate (Toprol Xl) 25 mg DAILY PO Last administered on 04/26/20at 08:43; Start 04/22/20 at 09:00 Benzonatate (Tessalon Perle) 100 mg [id number] PO Last administered on 04/26/20at 14:46; Start 04/22/20 at 09:00 Benzonatate (Tessalon Perle) 100 mg 1X ONCE PO Last administered on 04/21/20at 23:28; Start 04/21/20 at 23:15; Stop 04/21/20 at 23:16; Status DC Acetaminophen (Tylenol) 500 mg PRN Q6HRS PRN PO MILD PAIN / TEMP > 100.3'F; Start 04/22/20 at 06:45 Heparin Sodium/ Dextrose 250 ml @ 5.832 mls/ hr CONT PRN IV PER PROTOCOL Last administered on 04/24/20at 20:54; Start 04/23/20 at 15:30; Stop 04/25/20 at 09:46; Status DC Heparin Sodium (Porcine) (Heparin Sodium) 1,200 unit PRN Q6HRS PRN IV FOR UFH L EVEL LESS THAN 0.2 Last administered on 04/24/20at 00:00; Start 04/23/20 at 15:30; Stop 04/25/20 at 09:46; Status DC Info (Anti-Coagulation Monitoring By Pharmacy) 1 each PRN DAILY PRN MC SEE COMMENTS Last administered on 04/26/20at 11:54; Start 04/23/20 at 15:30 Doxycycline Hyclate 100 mg/ Dextrose 100 ml @ 50 mls/hr Q12HR IV Last administered on 04/26/20at 08:50; Start 04/23/20 at 21:00 Iohexol (Omnipaque 350 Mg/ml) 85 ml 1X ONCE IV Last administered on 04/23/20at 00:12; Start 04/23/20 at 23:45; Stop 04/23/20 at 23:46; Status DC Info (CONTRAST GIVEN -- Rx MONITORING) 1 each PRN DAILY PRN MC SEE COMMENTS; Start 04/23/20 at 23:45; Stop 04/25/20 at 23:44; Status DC Sodium Chloride 1,000 ml @ 100 mls/hr Q10H ONCE IV Last administered on 04/24/20at 01:03; Start 04/24/20 at 01:00; Stop 04/24/20 at 10:59; Status DC Potassium Chloride (Klor-Con) 40 meq 1X ONCE PO Last administered on 04/25/20at 10:11; Start 04/25/20 at 09:00; Stop 04/25/20 at 09:01; Status DC Potassium Chloride (Klor-Con) 20 meq DAILYWBKFT PO Last administered on 04/26/20at 08:44; Start 04/26/20 at 08:00 Apixaban (Eliquis) 5 mg BID PO Last administered on 04/26/20at 08:43; Start 04/25/20 at 09:45 Albuterol/ Ipratropium (Duoneb) 3 ml RTQID NEB Last administered on 04/26/20at 15:22; Start 04/26/20 at 09:00 Budesonide (Pulmicort) 0.5 mg RTBID NEB Last administered on 04/26/20at 10:39; Start 04/26/20 at 09:00 Albuterol Sulfate (Ventolin Neb Soln) 2.5 mg PRN Q4HRS PRN NEB SHORTNESS OF BREATH; Start 04/26/20 at 08:30 Active Scripts Active Clonidine Hcl 0.1 Mg Tablet 0.1 Mg PO BID PRN Take as needed for blood pressures greater than 185 systolic (top number) and/or 105 diastolic (bottom number). Qjuhwk-Wvphobyr-Cilf 50-325-40 (Butalb/Acetaminophen/Caffeine) 1 Each Tablet 1 Each PO Q6HRS PRN Atorvastatin Calcium 20 Mg Tablet 20 Mg PO QHS 30 Days Clopidogrel (Clopidogrel Bisulfate) 75 Mg Tablet 75 Mg PO DAILYWBKFT 30 Days Vitamin B-12 (Cyanocobalamin (Vitamin B-12)) 1,000 Mcg Tablet 1,000 Mcg PO DAILY Reported Proair Hfa Inhaler (Albuterol Sulfate) 8.5 Gm Hfa.aer.ad 2 Puff IH PRN Q4-6HRS PRN 21 Days Mirtazapine 15 Mg Tablet 15 Mg PO DAILY Albuterol Sulfate Neb Soln (Albuterol Sulfate) 0.63 Mg/3 Ml Vial.neb 0.63 Mg NEB PRN Q4HRS PRN Theophylline (Theophylline Anhydrous) 400 Mg Tablet.er 200 Mg PO DAILY Prochlorperazine Maleate 10 Mg Tablet 1 Tab PO Q6HRS NITROGLYCERIN SubLingual (Nitroglycerin) 0.4 Mg Tab.subl 0.4 Mg SL PRN Q5MIN PRN Super B Maxi Complex Caplet (Vitamin B Complex/Folic Acid) 0.4 Mg Tablet 0.4 Mg PO DAILY Metoprolol Succinate ( Xl ) (Metoprolol Succinate) 25 Mg Tab.er.24h 25 Mg PO DAILY Isosorbide Mononitrate Er (Isosorbide Mononitrate) 30 Mg Tab.er.24h 30 Mg PO DAILY Hydromorphone Hcl 4 Mg Tablet 4 Mg PO Q6HRS PRN Ferrous Sulfate 325 Mg Tablet 325 Mg PO DAILY Vitamin D (Cholecalciferol (Vitamin D3)) 2,000 Unit Capsule 2,000 Unit PO BID Potassium Chloride 10 Meq Tablet.er 10 Meq PO DAILY Colace (Docusate Sodium) 100 Mg Capsule 100 Mg PO HS Nexium Capsule (Esomeprazole Magnesium) 40 Mg Capsule.dr 2 Cap PO DAILY Levothyroxine Sodium 75 Mcg Tablet 1 Tab PO DAILY Gabapentin (Gabapentin) 100 Mg Capsule 100 Mg PO HS Allopurinol 100 Mg Tablet 1 Tab PO DAILY Vitals/I & O Vital Sign - Last 24 Hours 04/25/20 04/25/20 04/25/20 04/25/20 19:15 20:00 20:34 21:04 Temp 98.4 98.4 Pulse 106 Resp 22 18 18 B/P (MAP) 135/71 (92) Pulse Ox 97 97 97 O2 Delivery Nasal Cannula Nasal Cannula Nasal Cannula Nasal Cannula O2 Flow Rate 6.0 6.0 6.0 6.0 04/25/20 04/25/20 04/26/20 04/26/20 23:15 23:30 03:30 07:00 Temp 97.7 98.1 98.8 97.7 98.1 98.8 Pulse 115 117 106 Resp 20 B/P (MAP) 141/76 (97) 157/80 (105) 172/98 (122) Pulse Ox 56 91 94 93 O2 Delivery Room Air Nasal Cannula Nasal Cannula Nasal Cannula O2 Flow Rate 6.0 6.0 6.0 04/26/20 04/26/20 04/26/20 04/26/20 08:00 08:43 10:40 11:00 Temp 98.5 98.5 Pulse 108 108 Resp 20 B/P (MAP) 172/98 161/81 (107) Pulse Ox 96 96 O2 Delivery Nasal Cannula Nasal Cannula Nasal Cannula O2 Flow Rate 6.0 7.0 6.0 04/26/20 04/26/20 04/26/20 15:00 15:09 15:23 Temp 98.6 98.6 Pulse 111 Resp 20 B/P (MAP) 181/94 (123) Pulse Ox 96 93 O2 Delivery Nasal Cannula Nasal Cannula Nasal Cannula O2 Flow Rate 6.0 6.0 5.0 Intake and Output 04/25/20 04/25/20 04/26/20 14:59 22:59 06:59 Intake Total 100 ml Output Total 50 ml 100 ml 150 ml Balance 50 ml -100 ml -150 ml Justicifation of Admission Dx: Justifications for Admission: Justification of Admission Dx: Comment: (Pneumonia; elevated troponin) Nutrition Consultation Dietary Evaluation: Recommendations by RD: Dietary education by RD, Increase Calorie Intake, Protein supplementation Comments: REC continue regular diet, will add ensure enlive to meals Expected Outcomes/Goals: to meet >75% est nutr needs Malnutrition Findings: Body Fat Depletion (Non Severe: Mild Depletion Weight Status: Underweight ANKUSH QUIROZ MD Apr 26, 2020 16:00
[2020-04-26 19:15] VITALS: BP 163/82
[2020-04-26] MEDS: ATORVASTATIN CALCIUM 20 MG TABLET PO SCH (21:35)
[2020-04-26 22:35] VITALS: BP 147/89
--- NOTE | 2020-04-27 01:49 | NUR ---
pt IS SAYING SHE CANT BREATHE PLEASE HELP ME. SHE AGREED TO GET A TREATMENT.BUT THEN DIDNT WANT IT.PT ON 6 LITERS NC. SATS IS 92-94. LCRN
[2020-04-27] MEDS: HYDROmorphone 2 MG/ML VIAL IV PRN (02:13)
[2020-04-27 02:24] VITALS: BP 182/87
[2020-04-27] MEDS: cefTRIAXone IV Push 1 GM VIAL. IVP SCH (05:44)
[2020-04-27 07:00] VITALS: BP 181/94
[2020-04-27] MEDS: BUDESONIDE 0.5 MG/2 ML NEBU. NEB SCH (07:57)
[2020-04-27] MEDS: IPRATRPIUM/ALBUTEROL 0.5/2.5MG 3 ML NEBU. NEB SCH ×2 (07:57→11:55)
--- NOTE | 2020-04-27 08:14 | PDOC ---
PULMONARY PROGRESS NOTES Subjective PT FEELS BETTER WANTING TO GO HOME Vitals Vital Signs Date Time Temp Pulse Resp B/P (MAP) Pulse Ox O2 Delivery O2 Flow Rate FiO2 04/27/20 08:01 93 Nasal Cannula 5.0 04/27/20 07:00 97.7 111 20 181/94 (123) 97.7 ROS: No Nausea, No Chest Pain, No Abdominal Pain General: Alert, Oriented X4 Lungs: Clear, Crackles Cardiovascular: S1 Abdomen: Soft Neuro Exam: Alert Extremities: No Edema Skin: Warm Medications Active Scripts Medications Dose Route/Sig Max Daily Dose Days Date Category Dose Instructions Proair Hfa Inhaler (Albuterol Sulfate) 8.5 Gm Hfa.aer.ad 2 Puff IH PRN Q4-6HRS PRN 21 04/21/20 Reported Mirtazapine 15 Mg Tablet 15 Mg PO DAILY 04/21/20 Reported Albuterol Sulfate Neb Soln (Albuterol Sulfate) 0.63 Mg/3 Ml Vial.neb 0.63 Mg NEB PRN Q4HRS PRN 04/21/20 Reported Clonidine Hcl 0.1 Mg Tablet 0.1 Mg PO BID PRN 06/30/19 Rx Take as needed for blood pressures greater than 185 systolic (top number) and/or 105 diastolic (bottom number). Aabpyz-Bhwpqdzd-Ovdp 50-325-40 (Butalb/Acetaminophen/Caffeine) 1 Each Tablet 1 Each PO Q6HRS PRN 06/30/19 Rx Atorvastatin Calcium 20 Mg Tablet 20 Mg PO QHS 30 04/25/19 Rx Clopidogrel (Clopidogrel Bisulfate) 75 Mg Tablet 75 Mg PO DAILYWBKFT 30 04/25/19 Rx Theophylline (Theophylline Anhydrous) 400 Mg Tablet.er 200 Mg PO DAILY 04/22/19 Reported Prochlorperazine Maleate 10 Mg Tablet 1 Tab PO Q6HRS 04/22/19 Reported NITROGLYCERIN SubLingual (Nitroglycerin) 0.4 Mg Tab.subl 0.4 Mg SL PRN Q5MIN PRN 04/22/19 Reported Super B Maxi Complex Caplet (Vitamin B Complex/Folic Acid) 0.4 Mg Tablet 0.4 Mg PO DAILY 04/22/19 Reported Metoprolol Succinate ( Xl ) (Metoprolol Succinate) 25 Mg Tab.er.24h 25 Mg PO DAILY 04/22/19 Reported Isosorbide Mononitrate Er (Isosorbide Mononitrate) 30 Mg Tab.er.24h 30 Mg PO DAILY 04/22/19 Reported Hydromorphone Hcl 4 Mg Tablet 4 Mg PO Q6HRS PRN 05/31/17 Reported Ferrous Sulfate 325 Mg Tablet 325 Mg PO DAILY 05/31/17 Reported Vitamin D (Cholecalciferol (Vitamin D3)) 2,000 Unit Capsule 2,000 Unit PO BID 05/31/17 Reported Potassium Chloride 10 Meq Tablet.er 10 Meq PO DAILY 05/31/17 Reported Colace (Docusate Sodium) 100 Mg Capsule 100 Mg PO HS 03/05/17 Reported Vitamin B-12 (Cyanocobalamin (Vitamin B-12)) 1,000 Mcg Tablet 1,000 Mcg PO DAILY 11/08/16 Rx Nexium Capsule (Esomeprazole Magnesium) 40 Mg Capsule.dr 2 Cap PO DAILY 05/08/16 Reported Levothyroxine Sodium 75 Mcg Tablet 1 Tab PO DAILY 05/08/16 Reported Gabapentin (Gabapentin) 100 Mg Capsule 100 Mg PO HS 05/08/16 Reported Allopurinol 100 Mg Tablet 1 Tab PO DAILY 05/08/16 Reported Comments CTA chest Impression: 1. No evidence of pulmonary embolism. 2. Persistent abnormal right apical density with associated bronchiectasis identified surrounding the right upper lobe bronchus and extending peripherally. Moderate airspace opacity identified in the right lung base slightly increased since prior exam with small bilateral pleural effusions. Subpleural thickening or atelectasis is identified in the right middle lobe of the lung. PET/CT scan is recommended. 3. Severe bilateral lung emphysematous changes. Impression . IMPRESSION: 1. Acute hypoxic respiratory failure secondary to combination of underlying chronic obstructive pulmonary disease with exacerbation, 2. Abnormal chest x-ray with marked volume loss in the right upper lobe secondary to post-radiation changes related to her lung cancer and also some interstitial infiltrates, right lower lobe and left lung suggesting a pneumonia. 3. History of lung cancer diagnosed in 2016, status post radiation and chemo with marked volume loss in the right upper lobe related to tumor and radiation changes. She had a CT chest in 10/2019. At that time, she also had some new reticulonodular opacities in the left lower lobe, likely inflammatory. 4. Leukocytosis secondary to pneumonia.-- improving 5. Acute kidney injury. 6. Abnormal troponin suggesting non-ST myocardial infarction. 7. Abnormal D-dimer, which is a nonspecific thing. This could be related to underlying cancer. . 8. Nonocclusive thrombus in the right popliteal vein 9. No evidence of pulmonary embolism on CT chest 10. Persistent abnormal right apical density in patient with known lung cancer Plan . CXR REVIEWED NO SIGFICANT CHANGE. WILL SWITCH TO ORAL ANTI BX OK TO DC HOME FOLLOW UP IN 4-6 WEEKS IN MY OFFICE WILL DEFER ANTICOUGULATION TO ONCO SPOKE WITH DAUGHTER AT BEDSIDE Case discussed with Dr. Singh, continue anticoagulation Continue supplemental oxygen currently on 6 liters N/C Cont. PT OT SARS-CoV-2 negative Repeat lower extremity Dopplers, 04/30/2020 Anticoagulation per cardiology Follow HEM/ONC recs, outpatient PET scan DNR IVETTE CHO MD Apr 27, 2020 08:14
[2020-04-27] MEDS: METOPROLOL SUCC 24HR ER 25 MG TAB.ER.24H. PO SCH (09:21)
[2020-04-27] MEDS: BENZONATATE 100 MG CAPSULE. PO SCH (09:21)
[2020-04-27] MEDS: POTASSIUM CHLORIDE 20 MEQ TABLET.ER. PO SCH (09:22)
[2020-04-27] MEDS: APIXABAN 5 MG TABLET. PO SCH (09:22)
[2020-04-27] MEDS: CLOPIDOGREL BISULFATE 75 MG TABLET PO SCH (09:22)
--- NOTE | 2020-04-27 09:57 | PDOC ---
PROGRESS NOTES Chief Complaint Chief Complaint discharge dx Acute Hypoxic Resp Failure - neg covid 04/22 50 plus years of tobacco use and has underlying COPD NSTEMI CAD: S/P PCI Hx of lung CA with past radiation/chemo treatment Hypothyroidism HTN HLP Acute renal failure secondary to vasomotor nephropathy hypomag Leukocytosis Underweight 04/27 D/W RN d/c planning 29 min The patient was evaluated during the global COVID-19 pandemic, and that diagnosis was suspected/considered upon their initial presentation. Their evaluation, treatment and testing was consistent with current guidelines for patients who present with complaints or symptoms that may be related to COVID- 19. History of Present Illness History of Present Illness Ms Chauhan is an 79 yo F w/ PMHx CAD s/p PCI, lung cancer who presents with sob since 2 days ago reports non-productive cough. patient normally wears 3 liters of 02 at home. lives with son and daughter who alternate taking care of her. patient hard of hearing so hx difficult to obtain. per daughter, no chest pain, GI symptoms, anosmia. patients daughter's son works in a jail and did have covid 1 month ago. daughter denies recent exposure though. patient seen on floor and on 15 liters. chest xray shows: Heart is not enlarged. Aortic calcifi cations are seen. Right hilar prominence and right upper lung opacities are again seen. Background of interstitial prominence. Patchy opacities are seen in the right mid and lower lung may represent superimposed consolidation. Small right pleural effusion. No pneumothorax. 50 plus years of tobacco use and has underlying COPD, STOPPED SMOKING 2016 New reticulonodular opacities in the basilar left lower lobe, 10/2019 ct chest new from prior study. Infectious or inflammatory process, however metastatic disease is also possible. 04/23: She is still c/o substernal CP today and some bilateral LE swelling and pain. Afebrile, tachycardic, WBC now up to 17. CTPA: 1. No evidence of pulmonary embolism. 2. Persistent abnormal right apical density with associated bronchiectasis identified surrounding the right upper lobe bronchus and extending peripherally. Moderate airspace opacity identified in the right lung base slightly increased since prior exam with small bilateral pleural effusions. Subpleural thickening or atelectasis is identified in the right middle lobe of the lung. PET/CT scan is recommended. 3. Severe bilateral lung emphysematous changes. 04/24: She is a bit less short of breath today, still with some chest tightness. O2 6L. 04/26 O2 still at 6L. Shortness of breath the same. Discussed with cardiology no plans for intervention. She has not been out of bed has been using bedpan for bowel movements. Goal is to go home. 04/27, pulm ok with plan Plan: Stop heparin, needs full anticoagulation with eliquis for DVT with known malignancy, Urgent outpatient PET scan Treat pneumonia, added doxycycline Treat COPD Wean O2 as tolerated Formal PT/OT evaluation. Family goal is home, if this is realistic she will need home therapy. ld/w Daughter, Itzel, in room D/C PLANNING 29 MIN Vitals Vitals Vital Signs Date Time Temp Pulse Resp B/P (MAP) Pulse Ox O2 Delivery O2 Flow Rate FiO2 04/27/20 09:21 111 181/94 04/27/20 08:01 93 Nasal Cannula 5.0 04/27/20 07:00 97.7 20 97.7 Physical Exam General: Alert, Cooperative, No acute distress Heart: Regular rate Lungs: Clear, Crackles Abdomen: Normal bowel sounds, Soft Extremities: No cyanosis, No edema Skin: No breakdown Assessment and Plan Assessmemt and Plan Problems Medical Problems: (1) Elevated troponin Status: Acute (2) Person under investigation for COVID-19 Status: Acute (3) Pneumonia Status: Acute Comment Review of Relevant I have reviewed the following items shirin (where applicable) has been applied. Labs Microbiology 04/20/20 Nose/Throat Culture - Final, Complete Medications Current Medications Ceftriaxone Sodium (Rocephin) 1 gm 1X ONCE IVP Last administered on 04/21/20at 01:29; Start 04/21/20 at 00:30; Stop 04/21/20 at 00:31; Status DC Azithromycin 250 ml @ 250 mls/hr 1X ONCE IV Last administered on 04/21/20at 01:30; Start 04/21/20 at 00:30; Stop 04/21/20 at 01:29; Status DC Ondansetron HCl (Zofran) 4 mg PRN Q8HRS PRN IV NAUSEA/VOMITING 1ST CHOICE Last administered on 04/21/20at 01:33; Start 04/21/20 at 00:15; Stop 04/22/20 at 00:14; Status DC Acetaminophen (Tylenol) 650 mg PRN Q4HRS PRN PO FEVER > 100.3'F; Start 04/21/20 at 00:15; Stop 04/22/20 at 00:14; Status DC Hydromorphone HCl (Dilaudid) 0.5 mg PRN Q2HRS PRN IV SEVERE PAIN 7-10 Last administered on 04/27/20at 02:13; Start 04/21/20 at 01:00 Sodium Chloride 500 ml @ 500 mls/hr 1X ONCE IV Last administered on 04/21/20at 01:33; Start 04/21/20 at 02:00; Stop 04/21/20 at 02:59; Status DC Ceftriaxone Sodium (Rocephin) 1 gm Q24H IVP Last administered on 04/27/20at 05:44; Start 04/22/20 at 06:00 Azithromycin 500 mg/Sodium Chloride 250 ml @ 250 mls/hr Q24H IV ; Start 04/22/20 at 06:00; Stop 04/22/20 at 13:29; Status DC Enoxaparin Sodium (Lovenox Per Pharmacy Prophylaxis Dosing) 1 each PRN DAILY PRN MC SEE COMMENTS; Start 04/21/20 at 08:45; Stop 04/21/20 at 10:34; Status DC Enoxaparin Sodium (Lovenox 30mg Syringe) 30 mg Q24H SQ Last administered on 04/21/20at 09:35; Start 04/21/20 at 09:00; Stop 04/21/20 at 10:31; Status DC Heparin Sodium/ Dextrose 250 ml @ 5.832 mls/ hr CONT PRN IV PER PROTOCOL Last administered on 04/23/20at 06:04; Start 04/21/20 at 09:00; Stop 04/23/20 at 08:31; Status DC Heparin Sodium (Porcine) (Heparin Sodium) 1,200 unit PRN Q6HRS PRN IV FOR UFH LEVEL LESS THAN 0.2 Last administered on 04/23/20at 06:15; Start 04/21/20 at 09:00; Stop 04/23/20 at 08:31; Status DC Clopidogrel Bisulfate (Plavix) 75 mg DAILYWBKFT PO Last administered on 04/27/20 09:22; Start 04/22/20 at 08:00 Info (Anti-Coagulation Monitoring By Pharmacy) 1 each PRN DAILY PRN MC SEE COMMENTS Last administered on 04/22/20at 12:00; Start 04/21/20 at 09:00; Stop 04/23/20 at 09:56; Status DC Magnesium Sulfate 50 ml @ 25 mls/hr 1X ONCE IV Last administered on 04/21/20at 12:46; Start 04/21/20 at 13:00; Stop 04/21/20 at 14:59; Status DC Atorvastatin Calcium (Lipitor) 20 mg QHS PO Last administered on 04/26/20at 21:35; Start 04/21/20 at 21:00 Metoprolol Succinate (Toprol Xl) 25 mg DAILY PO Last administered on 04/27/20 09:21; Start 04/22/20 at 09:00 Benzonatate (Tessalon Perle) 100 mg [id number] PO Last administered on 04/27/20 09:21; Start 04/22/20 at 09:00 Benzonatate (Tessalon Perle) 100 mg 1X ONCE PO Last administered on 04/21/20at 23:28; Start 04/21/20 at 23:15; Stop 04/21/20 at 23:16; Status DC Acetaminophen (Tylenol) 500 mg PRN Q6HRS PRN PO MILD PAIN / TEMP > 100.3'F; Start 04/22/20 at 06:45 Heparin Sodium/ Dextrose 250 ml @ 5.832 mls/ hr CONT PRN IV PER PROTOCOL Last administered on 04/24/20at 20:54; Start 04/23/20 at 15:30; Stop 04/25/20 at 09:46; Status DC Heparin Sodium (Porcine) (Heparin Sodium) 1,200 unit PRN Q6HRS PRN IV FOR UFH LEVEL LESS THAN 0.2 Last administered on 04/24/20at 00:00; Start 04/23/20 at 15:30; Stop 04/25/20 at 09:46; Status DC Info (Anti-Coagulation Monitoring By Pharmacy) 1 each PRN DAILY PRN MC SEE COMMENTS Last administered on 04/26/20at 11:54; Start 04/23/20 at 15:30 Doxycycline Hyclate 100 mg/ Dextrose 100 ml @ 50 mls/hr Q12HR IV Last administered on 04/26/20at 21:34; Start 04/23/20 at 21:00 Iohexol (Omnipaque 350 Mg/ml) 85 ml 1X ONCE IV Last administered on 04/23/20at 00:12; Start 04/23/20 at 23:45; Stop 04/23/20 at 23:46; Status DC Info (CONTRAST GIVEN -- Rx MONITORING) 1 each PRN DAILY PRN MC SEE COMMENTS; Start 04/23/20 at 23:45; Stop 04/25/20 at 23:44; Status DC Sodium Chloride 1,000 ml @ 100 mls/hr Q10H ONCE IV Last administered on 04/24/20at 01:03; Start 04/24/20 at 01:00; Stop 04/24/20 at 10:59; Status DC Potassium Chloride (Klor-Con) 40 meq 1X ONCE PO Last administered on 04/25/20at 10:11; Start 04/25/20 at 09:00; Stop 04/25/20 at 09:01; Status DC Potassium Chloride (Klor-Con) 20 meq DAILYWBKFT PO Last administered on 04/27/20at 09:22; Start 04/26/20 at 08:00 Apixaban (Eliquis) 5 mg BID PO Last administered on 04/27/20at 09:22; Start 04/25/20 at 09:45 Albuterol/ Ipratropium (Duoneb) 3 ml RTQID NEB Last administered on 04/27/20at 07:57; Start 04/26/20 at 09:00 Budesonide (Pulmicort) 0.5 mg RTBID NEB Last administered on 04/27/20at 07:57; Start 04/26/20 at 09:00 Albuterol Sulfate (Ventolin Neb Soln) 2.5 mg PRN Q4HRS PRN NEB SHORTNESS OF BREATH Last administered on 04/27/20at 01:56; Start 04/26/20 at 08:30 Active Scripts Active Clonidine Hcl 0.1 Mg Tablet 0.1 Mg PO BID PRN Take as needed for blood pressures greater than 185 systolic (top number) and/or 105 diastolic (bottom number). [id number]-Dfil 50-325-40 (Butalb/Acetaminophen/Caffeine) 1 Each Tablet 1 Each PO Q6HRS PRN Atorvastatin Calcium 20 Mg Tablet 20 Mg PO QHS 30 Days Clopidogrel (Clopidogrel Bisulfate) 75 Mg Tablet 75 Mg PO DAILYWBKFT 30 Days Vitamin B-12 (Cyanocobalamin (Vitamin B-12)) 1,000 Mcg Tablet 1,000 Mcg PO DAILY Reported Proair Hfa Inhaler (Albuterol Sulfate) 8.5 Gm Hfa.aer.ad 2 Puff IH PRN Q4-6HRS PRN 21 Days Mirtazapine 15 Mg Tablet 15 Mg PO DAILY Albuterol Sulfate Neb Soln (Albuterol Sulfate) 0.63 Mg/3 Ml Vial.neb 0.63 Mg NEB PRN Q4HRS PRN Theophylline (Theophylline Anhydrous) 400 Mg Tablet.er 200 Mg PO DAILY Prochlorperazine Maleate 10 Mg Tablet 1 Tab PO Q6HRS NITROGLYCERIN SubLingual (Nitroglycerin) 0.4 Mg Tab.subl 0.4 Mg SL PRN Q5MIN PRN Super B Maxi Complex Caplet (Vitamin B Complex/Folic Acid) 0.4 Mg Tablet 0.4 Mg PO DAILY Metoprolol Succinate ( Xl ) (Metoprolol Succinate) 25 Mg Tab.er.24h 25 Mg PO DAILY Isosorbide Mononitrate Er (Isosorbide Mononitrate) 30 Mg Tab.er.24h 30 Mg PO DAILY Hydromorphone Hcl 4 Mg Tablet 4 Mg PO Q6HRS PRN Ferrous Sulfate 325 Mg Tablet 325 Mg PO DAILY Vitamin D (Cholecalciferol (Vitamin D3)) 2,000 Unit Capsule 2,000 Unit PO BID Potassium Chloride 10 Meq Tablet.er 10 Meq PO DAILY Colace (Docusate Sodium) 100 Mg Capsule 100 Mg PO HS Nexium Capsule (Esomeprazole Magnesium) 40 Mg Capsule.dr 2 Cap PO DAILY Levothyroxine Sodium 75 Mcg Tablet 1 Tab PO DAILY Gabapentin (Gabapentin) 100 Mg Capsule 100 Mg PO HS Allopurinol 100 Mg Tablet 1 Tab PO DAILY Vitals/I & O Vital Sign - Last 24 Hours 04/26/20 04/26/20 04/26/20 04/26/20 10:40 11:00 15:00 15:09 Temp 98.5 98.6 98.5 98.6 Pulse 108 111 Resp 20 B/P (MAP) 161/81 (107) 181/94 (123) Pulse Ox 96 96 96 O2 Delivery Nasal Cannula Nasal Cannula Nasal Cannula Nasal Cannula O2 Flow Rate 7.0 6.0 6.0 6.0 04/26/20 04/26/20 04/26/20 04/26/20 15:23 15:39 19:15 20:00 Temp 98.5 98.5 Pulse 112 Resp 18 B/P (MAP) 163/82 (109) Pulse Ox 93 95 O2 Delivery Nasal Cannula Nasal Cannula Nasal Cannula Nasal Cannula O2 Flow Rate 5.0 6.0 6.0 5.0 04/26/20 04/27/20 04/27/20 04/27/20 22:35 01:56 02:24 07:00 Temp 99.2 99.0 97.7 99.2 99.0 97.7 Pulse 113 111 111 Resp 20 B/P (MAP) 147/89 (108) 182/87 (118) 181/94 (123) Pulse Ox 96 94 88 96 O2 Delivery Nasal Cannula Nasal Cannula Nasal Cannula Nasal Cannula O2 Flow Rate 6.0 5.0 6.0 6.0 04/27/20 04/27/20 04/27/20 04/27/20 08:00 08:00 08:01 09:21 Pulse 111 B/P (MAP) 181/94 Pulse Ox 93 93 O2 Delivery Nasal Cannula Nasal Cannula Nasal Cannula O2 Flow Rate 5.0 5.0 5.0 Intake and Output 04/26/20 04/26/20 04/27/20 15:00 23:00 07:00 Intake Total 200 ml 300 ml Output Total 325 ml 250 ml Balance -125 ml 50 ml Nutrition Consultation Dietary Evaluation: Recommendations by RD: Dietary education by RD, Increase Calorie Intake, Protein supplementation Comments: Continue w/regular diet, honor food preferences, and provide snacks/supplements as requested/tolerated. Will add Ensure pudding to lunch trays and see if pt likes that REC PPN for additional calories/protein to supplement poor PO intake if appropriate Expected Outcomes/Goals: to meet >75% est nutr needs - not met, goal ongoing Malnutrition Findings: Body Fat Depletion (Non Severe: Mild Depletion Weight Status: Underweight BUCK NUNES MD Apr 27, 2020 09:57
[2020-04-27 11:00] VITALS: BP 141/75
--- NOTE | 2020-04-27 12:25 | NUR ---
SS following up with discharge planning. SS reviewed pt chart and discussed with pt RN. Per RN, pt stable for discharge. Pt switched to PO antibiotics. Pt has home oxygen at home. Pt and pt's family requesting to discharge to home with [facility], ; fax [phone]. SS phoned and faxed referral to [facility]. SS will continue to follow for discharge planning.
--- NOTE | 2020-04-27 13:38 | PDOC3 ---
Discharge Summary Date of Admission: Apr 21, 2020 Date of Discharge: Apr 27, 2020 Follow-Up: 1-2 days Admitting Diagnosis comment: discharge dx Acute Hypoxic Resp Failure - neg covid 04/22 50 plus years of tobacco use and has underlying COPD NSTEMI CAD: S/P PCI Hx of lung CA with past radiation/chemo treatment Hypothyroidism HTN HLP Acute renal failure secondary to vasomotor nephropathy hypomag Leukocytosis Underweight 04/27 D/W RN d/c planning 29 min The patient was evaluated during the global COVID-19 pandemic, and that diagnosis was suspected/considered upon their initial presentation. Their evaluation, treatment and testing was consistent with current guidelines for patients who present with complaints or symptoms that may be related to COVID- 19. History of Present Illness History of Present Illness Ms Chauhan is an 79 yo F w/ PMHx CAD s/p PCI, lung cancer who presents with sob since 2 days ago reports non-productive cough. patient normally wears 3 liters of 02 at home. lives with son and daughter who alternate taking care of her. patient hard of hearing so hx difficult to obtain. per daughter, no chest pain, GI symptoms, anosmia. patients daughter's son works in a senior care and did have covid 1 month ago. daughter denies recent exposure though. patient seen on floor and on 15 liters. chest xray shows: Heart is not enlarged. Aortic calcifications are seen. Right hilar prominence and right upper lung opacities are again seen. Background of interstitial prominence. Patchy opacities are seen in the right mid and lower lung may represent superimposed consolidation. Small right pleural effusion. No pneumothorax. 50 plus years of tobacco use and has underlying COPD, STOPPED SMOKING 2016 New reticulonodular opacities in the basilar left lower lobe, 10/2019 ct chest new from prior study. Infectious or inflammatory process, however metastatic disease is also possible. 04/23: She is still c/o substernal CP today and some bilateral LE swelling and pain. Afebrile, tachycardic, WBC now up to 17. CTPA: 1. No evidence of pulmonary embolism. 2. Persistent abnormal right apical density with associated bronchiectasis identified surrounding the right upper lobe bronchus and extending peripherally. Moderate airspace opacity identified in the right lung base slightly increased since prior exam with small bilateral pleural effusions. Subpleural thickening or atelectasis is identified in the right middle lobe of the lung. PET/CT scan is recommended. 3. Severe bilateral lung emphysematous changes. 04/24: She is a bit less short of breath today, still with some chest tightness. O2 6L. 04/26 O2 still at 6L. Shortness of breath the same. Discussed with cardiology no plans for intervention. She has not been out of bed has been using bedpan for bowel movements. Goal is to go home. 04/27, pulm [place] with plan Plan: eliquis for DVT with known malignancy, Urgent outpatient PET scan PLANNED Treat pneumonia, added doxycycline Treat COPD Wean O2 as tolerated Formal PT/OT evaluation. Family goal is home, if this is realistic she will need home therapy. ld/w Daughter, Itzel, in room D/C PLANNING 29 MIN Vitals Vitals Vital Signs Date Time Temp Pulse Resp B/P (MAP) Pulse Ox O2 Delivery O2 Flow Rate FiO2 04/27/20 09:21 111 181/94 04/27/20 08:01 93 Nasal Cannula 5.0 04/27/20 07:00 97.7 20 97.7 Physical Exam General: Alert, Cooperative, No acute distress Heart: Regular rate Lungs: Clear, Crackles Abdomen: Normal bowel sounds, Soft Extremities: No cyanosis, No edema Skin: No breakdown FINAL DIAGNOSIS Problems Medical Problems: (1) Elevated troponin Status: Acute (2) Person under investigation for COVID-19 Status: Acute (3) Pneumonia Status: Acute Brief Hospital Course Ms. Chauhan is a 79 old [sex] who presented with [ ACUTE HYPOXIC RESP FAILURE, SEVERE COPD, PNEUMONIA] CONDITION AT DISCHARGE: Improved Discharge Medications Current Medications Ceftriaxone Sodium (Rocephin) 1 gm 1X ONCE IVP Last administered on 04/21/20at 01:29; Start 04/21/20 at 00:30; Stop 04/21/20 at 00:31; Status DC Azithromycin 250 ml @ 250 mls/hr 1X ONCE IV Last administered on 04/21/20at 01:30; Start 04/21/20 at 00:30; Stop 04/21/20 at 01:29; Status DC Ondansetron HCl (Zofran) 4 mg PRN Q8HRS PRN IV NAUSEA/VOMITING 1ST CHOICE Last administered on 04/21/20at 01:33; Start 04/21/20 at 00:15; Stop 04/22/20 at 00:14; Status DC Acetaminophen (Tylenol) 650 mg PRN Q4HRS PRN PO FEVER > 100.3'F; Start 04/21/20 at 00:15; Stop 04/22/20 at 00:14; Status DC Hydromorphone HCl (Dilaudid) 0.5 mg PRN Q2HRS PRN IV SEVERE PAIN 7-10 Last administered on 04/27/20at 02:13; Start 04/21/20 at 01:00 Sodium Chloride 500 ml @ 500 mls/hr 1X ONCE IV Last administered on 04/21/20at 01:33; Start 04/21/20 at 02:00; Stop 04/21/20 at 02:59; Status DC Ceftriaxone Sodium (Rocephin) 1 gm Q24H IVP Last administered on 04/27/20at 05:44; Start 04/22/20 at 06:00; Stop 04/27/20 at 11:47; Status DC Azithromycin 500 mg/Sodium Chloride 250 ml @ 250 mls/hr Q24H IV ; Start 04/22/20 at 06:00; Stop 04/22/20 at 13:29; Status DC Enoxaparin Sodium (Lovenox Per Pharmacy Prophylaxis Dosing) 1 each PRN DAILY PRN MC SEE COMMENTS; Start 04/21/20 at 08:45; Stop 04/21/20 at 10:34; Status DC Enoxaparin Sodium (Lovenox 30mg Syringe) 30 mg Q24H SQ Last administered on 04/21/20at 09:35; Start 04/21/20 at 09:00; Stop 04/21/20 at 10:31; Status DC Heparin Sodium/ Dextrose 250 ml @ 5.832 mls/ hr CONT PRN IV PER PROTOCOL Last administered on 04/23/20at 06:04; Start 04/21/20 at 09:00; Stop 04/23/20 at 08:31; Status DC Heparin Sodium (Porcine) (Heparin Sodium) 1,200 unit PRN Q6HRS PRN IV FOR UFH LEVEL LESS THAN 0.2 Last administered on 04/23/20at 06:15; Start 04/21/20 at 09: 00; Stop 04/23/20 at 08:31; Status DC Clopidogrel Bisulfate (Plavix) 75 mg DAILYWBKFT PO Last administered on 04/27/20at 09:22; Start 04/22/20 at 08:00 Info (Anti-Coagulation Monitoring By Pharmacy) 1 each PRN DAILY PRN MC SEE COMMENTS Last administered on 04/22/20at 12:00; Start 04/21/20 at 09:00; Stop 04/23/20 at 09:56; Status DC Magnesium Sulfate 50 ml @ 25 mls/hr 1X ONCE IV Last administered on 04/21/20at 12:46; Start 04/21/20 at 13:00; Stop 04/21/20 at 14:59; Status DC Atorvastatin Calcium (Lipitor) 20 mg QHS PO Last administered on 04/26/20at 21:35; Start 04/21/20 at 21:00 Metoprolol Succinate (Toprol Xl) 25 mg DAILY PO Last administered on 04/27/20at 09:21; Start 04/22/20 at 09:00 Benzonatate (Tessalon Perle) 100 mg [id number] PO Last administered on 04/27/20at 09:21; Start 04/22/20 at 09:00 Benzonatate (Tessalon Perle) 100 mg 1X ONCE PO Last administered on 04/21/20at 23:28; Start 04/21/20 at 23:15; Stop 04/21/20 at 23:16; Status DC Acetaminophen (Tylenol) 500 mg PRN Q6HRS PRN PO MILD PAIN / TEMP > 100.3'F; Start 04/22/20 at 06:45 Heparin Sodium/ Dextrose 250 ml @ 5.832 mls/ hr CONT PRN IV PER PROTOCOL Last administered on 04/24/20at 20:54; Start 04/23/20 at 15:30; Stop 04/25/20 at 09:46; Status DC Heparin Sodium (Porcine) (Heparin Sodium) 1,200 unit PRN Q6HRS PRN IV FOR UFH LEVEL LESS THAN 0.2 Last administered on 04/24/20at 00:00; Start 04/23/20 at 15:30; Stop 04/25/20 at 09:46; Status DC Info (Anti-Coagulation Monitoring By Pharmacy) 1 each PRN DAILY PRN MC SEE COMMENTS Last administered on 04/26/20at 11:54; Start 04/23/20 at 15:30 Doxycycline Hyclate 100 mg/ Dextrose 100 ml @ 50 mls/hr Q12HR IV Last administered on 04/26/20at 21:34; Start 04/23/20 at 21:00 Iohexol (Omnipaque 350 Mg/ml) 85 ml 1X ONCE IV Last administered on 04/23/20at 00:12; Start 04/23/20 at 23:45; Stop 04/23/20 at 23:46; Status DC Info (CONTRAST GIVEN -- Rx MONITORING) 1 each PRN DAILY PRN MC SEE COMMENTS; Start 04/23/20 at 23:45; Stop 04/25/20 at 23:44; Status DC Sodium Chloride 1,000 ml @ 100 mls/hr Q10H ONCE IV Last administered on 04/24/20at 01:03; Start 04/24/20 at 01:00; Stop 04/24/20 at 10:59; Status DC Potassium Chloride (Klor-Con) 40 meq 1X ONCE PO Last administered on 04/25/20at 10:11; Start 04/25/20 at 09:00; Stop 04/25/20 at 09:01; Status DC Potassium Chloride (Klor-Con) 20 meq DAILYWBKFT PO Last administered on 04/27/20at 09:22; Start 04/26/20 at 08:00 Apixaban (Eliquis) 5 mg BID PO Last administered on 04/27/20at 09:22; Start 04/25/20 at 09:45 Albuterol/ Ipratropium (Duoneb) 3 ml RTQID NEB Last administered on 04/27/20 11:55; Start 04/26/20 at 09:00 Budesonide (Pulmicort) 0.5 mg RTBID NEB Last administered on 04/27/20 07:57; Start 04/26/20 at 09:00 Albuterol Sulfate (Ventolin Neb Soln) 2.5 mg PRN Q4HRS PRN NEB SHORTNESS OF BREATH Last administered on 04/27/20 01:56; Start 04/26/20 at 08:30 Active Scripts Active Clonidine Hcl 0.1 Mg Tablet 0.1 Mg PO BID PRN Take as needed for blood pressures greater than 185 systolic (top number) and/or 105 diastolic (bottom number). [id number]-Swvx 50-325-40 (Butalb/Acetaminophen/Caffeine) 1 Each Tablet 1 Each PO Q6HRS PRN Atorvastatin Calcium 20 Mg Tablet 20 Mg PO QHS 30 Days Clopidogrel (Clopidogrel Bisulfate) 75 Mg Tablet 75 Mg PO DAILYWBKFT 30 Days Vitamin B-12 (Cyanocobalamin (Vitamin B-12)) 1,000 Mcg Tablet 1,000 Mcg PO DAILY Reported Proair Hfa Inhaler (Albuterol Sulfate) 8.5 Gm Hfa.aer.ad 2 Puff IH PRN Q4-6HRS PRN 21 Days Mirtazapine 15 Mg Tablet 15 Mg PO DAILY Albuterol Sulfate Neb Soln (Albuterol Sulfate) 0.63 Mg/3 Ml Vial.neb 0.63 Mg NEB PRN Q4HRS PRN Theophylline (Theophylline Anhydrous) 400 Mg Tablet.er 200 Mg PO DAILY Prochlorperazine Maleate 10 Mg Tablet 1 Tab PO Q6HRS NITROGLYCERIN SubLingual (Nitroglycerin) 0.4 Mg Tab.subl 0.4 Mg SL PRN Q5MIN PRN Super B Maxi Complex Caplet (Vitamin B Complex/Folic Acid) 0.4 Mg Tablet 0.4 Mg PO DAILY Metoprolol Succinate ( Xl ) (Metoprolol Succinate) 25 Mg Tab.er.24h 25 Mg PO DAILY Isosorbide Mononitrate Er (Isosorbide Mononitrate) 30 Mg Tab.er.24h 30 Mg PO DAILY Hydromorphone Hcl 4 Mg Tablet 4 Mg PO Q6HRS PRN Ferrous Sulfate 325 Mg Tablet 325 Mg PO DAILY Vitamin D (Cholecalciferol (Vitamin D3)) 2,000 Unit Capsule 2,000 Unit PO BID Potassium Chloride 10 Meq Tablet.er 10 Meq PO DAILY Colace (Docusate Sodium) 100 Mg Capsule 100 Mg PO HS Nexium Capsule (Esomeprazole Magnesium) 40 Mg Capsule.dr 2 Cap PO DAILY Levothyroxine Sodium 75 Mcg Tablet 1 Tab PO DAILY Gabapentin (Gabapentin) 100 Mg Capsule 100 Mg PO HS Allopurinol 100 Mg Tablet 1 Tab PO DAILY Vital Signs Vital Signs Date Time Temp Pulse Resp B/P (MAP) Pulse Ox O2 Delivery O2 Flow Rate FiO2 04/27/20 11:56 Nasal Cannula 5.0 04/27/20 11:00 96.6 97 20 141/75 (97) 96 96.6 Allergies Allergies Coded Allergies Type Severity Reaction Last Updated Verified aspirin Allergy Intermediate 05/08/16 Yes codeine Allergy Intermediate 05/08/16 Yes methocarbamol Allergy Intermediate 05/08/16 Yes morphine Allergy Intermediate 05/08/16 Yes oxycodone Allergy Intermediate 05/08/16 Yes sulfamethoxazole Allergy Intermediate 05/08/16 Yes tramadol Allergy Intermediate 05/08/16 Yes trimethoprim Allergy Intermediate 05/08/16 Yes ibuprofen Allergy Mild 04/22/20 Yes Disposition/Orders: D/C to Home w/ HH Justicifation of Admission Dx: Justifications for Admission: Justification of Admission Dx: Comment: (Pneumonia; elevated troponin) BUCK NUNES MD Apr 27, 2020 13:38
[2020-04-27] MEDS ORDERED: BENZ-8 PO (13:43)
[2020-04-27] MEDS ORDERED: ACET500T68 PO (13:43)
[2020-04-27] MEDS ORDERED: IPRA3AMP29 NEB (13:43)
[2020-04-27] MEDS ORDERED: DOXY100C2 PO (13:43)
[2020-04-27] MEDS ORDERED: POTA20TA4 PO (13:43)
[2020-04-27] MEDS ORDERED: APIX5TAB PO (13:43)
[2020-04-27] MEDS ORDERED: BUDE0.5A NEB (13:43)
--- NOTE | 2020-04-27 13:44 | SNU/HH DC ---
DISCHARGE WITH HOME HEALTH DISCHARGE INFORMATION: Discharge Date: Apr 27, 2020 Final Diagnosis: Problems Medical Problems: (1) Elevated troponin Status: Acute (2) Person under investigation for COVID-19 Status: Acute (3) Pneumonia Status: Acute Condition on Discharge: Stable CODE STATUS: Code Status: Full HOME HEALTH: Face to Face: I certify this patient is under my care and that I, or a nurse practitioner or physician's property management assistant working with me, had a face to face encounter that meets the physician face to face encounter requirements with this patient on []. Medical Complications: COPD, Pneumonia RN For Eval/Treatment: Yes Physical Therapy For: Evalulation/Treatment Occupational Therapy For: Evaluation/Treatment Speech Language Pathology For: Evaluation/Treatment Home Health Aide For: Self-care TOURIST CAMP ATTENDANT For: Community Resources Pt Meets Homebound Status: Fatigue w/ amb., Limited distance walking POST DISCHARGE ORDERS: Activity Instructions for Disc: Activity as tolerated Weight Bearing Status after Di: No restrictions Bathing Instructions: Shower-keep dressing dry DIET AFTER DISCHARGE: Regular Wound/Incision Care: No wound care needed TREATMENT/EQUIPMENT ORDERS: Adaptive Equipment Issued: Cane, Walker Discharge Respiratory Equipmen: Oxygen, Nebulizer CERTIFICATION STATEMENT: Certification Statement: Certification Statement: Based on the above finding, I certify that this patient is confined to the home and needs intermittent care home care, physical therapy and/or speech therapy, or continues to need occupational therapy.~ This patient is under my care, and I have initiated the establishment of the plan of care.~ This patient will be followed by myself or a community physician who will periodically review the plan of care. Home Meds Active Scripts Doxycycline Hyclate (DOXYCYCLINE HYCLATE) 100 Mg Capsule, 1 CAP PO BID for PNEUMONIA, #14 CAP Prov:BUCK NUNES MD 04/27/20 Budesonide (BUDESONIDE) 0.5 Mg/2 Ml Ampul.neb, 0.5 MG NEB RTBID for COPD for 30 Days, #60 EACH Prov:BUCK NUNES MD 04/27/20 Benzonatate (BENZONATATE) 100 Mg Capsule, 100 MG PO [id number] for COUGH for 14 Days, #60 CAP Prov:BUCK NUNES MD 04/27/20 Potassium Chloride (KLOR-CON M20) 20 Meq Tab.er.prt, 20 MEQ PO DAILYWBKFT for SUPPLEMENT for 14 Days, #14 TAB.SR Prov:BUCK NUNES MD 04/27/20 Acetaminophen (ACETAMINOPHEN) 500 Mg Tablet, 500 MG PO PRN Q6HRS PRN for MILD PAIN / TEMP > 100.3'F for 30 Days, #60 TAB Prov:BUCK NUNES MD 04/27/20 Apixaban (ELIQUIS) 5 Mg Tablet, 5 MG PO BID for DVT RX for 30 Days, #60 TAB Prov:BUCK NUNES MD 04/27/20 Ipratropium/Albuterol Sulfate (DUONEB 0.5-3(2.5) MG/3 ML) 3 Ml Ampul.neb, 3 ML NEB RTQID for COPD for 30 Days, #120 EACH Prov:BUCK NUNES MD 04/27/20 Butalb/Acetaminophen/Caffeine (PXOQJO-VUXHZISK-JKVD 50-325-40) 1 Each Tablet, 1 EACH PO Q6HRS PRN for HEADACHE, #10 TAB Prov:LIBERTY CRUZ DO 06/30/19 Atorvastatin Calcium (ATORVASTATIN CALCIUM) 20 Mg Tablet, 20 MG PO QHS for cad for 30 Days, #30 TAB 3 Refills Prov:ARGELIA QUIROZ MD 04/25/19 Clopidogrel Bisulfate (CLOPIDOGREL) 75 Mg Tablet, 75 MG PO DAILYWBKFT for stent for 30 Days, #30 TAB 3 Refills Prov:ARGELIA QUIROZ MD 04/25/19 Cyanocobalamin (Vitamin B-12) (VITAMIN B-12) 1,000 Mcg Tablet, 1000 MCG PO DAILY, #30 TAB Prov:DARIO ROWLAND MD 11/08/16 Reported Medications Albuterol Sulfate (PROAIR HFA INHALER) 8.5 Gm Hfa.aer.ad, 2 PUFF IH PRN Q4-6HRS PRN for wheezing for 21 Days, #1 INHALER 0 Refills 04/21/20 Mirtazapine (MIRTAZAPINE) 15 Mg Tablet, 15 MG PO DAILY for depression, TAB 04/21/20 Albuterol Sulfate (ALBUTEROL SULFATE NEB SOLN) 0.63 Mg/3 Ml Vial.neb, 0.63 MG NEB PRN Q4HRS PRN for FOR ASTHMA, EACH 0 Refills 04/21/20 Prochlorperazine Maleate (PROCHLORPERAZINE MALEATE) 10 Mg Tablet, 1 TAB PO Q6HRS for nausea 04/22/19 Vitamin B Complex/Folic Acid (Super B Maxi Complex Caplet) 0.4 Mg Tablet, 0.4 MG PO DAILY for supplement 04/22/19 Metoprolol Succinate (METOPROLOL SUCCINATE ( XL )) 25 Mg Tab.er.24h, 25 MG PO DAILY for FOR HYPERTENSION 04/22/19 Hydromorphone Hcl (HYDROMORPHONE HCL) 4 Mg Tablet, 4 MG PO Q6HRS PRN for chest wall pain-lung cancer 05/31/17 Ferrous Sulfate (FERROUS SULFATE) 325 Mg Tablet, 325 MG PO DAILY for anemia 05/31/17 Cholecalciferol (Vitamin D3) (VITAMIN D) 2,000 Unit Capsule, 2000 UNIT PO BID for supplement 05/31/17 Docusate Sodium (COLACE) 100 Mg Capsule, 100 MG PO HS for constipation-narcotics 03/05/17 Esomeprazole Magnesium (NEXIUM CAPSULE) 40 Mg Capsule.dr, 2 CAP PO DAILY for GERD 05/08/16 Levothyroxine Sodium (LEVOTHYROXINE SODIUM) 75 Mcg Tablet, 1 TAB PO DAILY for hypothyroidism 05/08/16 Gabapentin (GABAPENTIN ) 100 Mg Capsule, 100 MG PO HS for neuropathy 05/08/16 Allopurinol (ALLOPURINOL) 100 Mg Tablet, 1 TAB PO DAILY for gout 05/08/16 Discontinued Reported Medications Theophylline Anhydrous (THEOPHYLLINE) 400 Mg Tablet.er, 200 MG PO DAILY for rx 04/22/19 Nitroglycerin (NITROGLYCERIN SubLingual) 0.4 Mg Tab.subl, 0.4 MG SL PRN Q5MIN PRN for CHEST PAIN, BOTTLE 04/22/19 Isosorbide Mononitrate (ISOSORBIDE MONONITRATE ER) 30 Mg Tab.er.24h, 30 MG PO DAILY for cardiac 04/22/19 Potassium Chloride (POTASSIUM CHLORIDE) 10 Meq Tablet.er, 10 MEQ PO DAILY for supplement 05/31/17 Discontinued Scripts Clonidine Hcl (CLONIDINE HCL) 0.1 Mg Tablet, 0.1 MG PO BID PRN for ELEVATED BP, SEE COMMENTS, #14 TAB Take as needed for blood pressures greater than 185 systolic (top number) and/or 105 diastolic (bottom number). Prov:LIBERTY CRUZ DO 06/30/19 BUCK NUNES MD Apr 27, 2020 13:44
--- NOTE | 2020-04-27 13:47 | NUR ---
SS following up with discharge planning. Discharge orders received for home healthcare. SS phoned and faxed discharge orders to [facility], ; fax [phone]. Pt's RN notified.
--- NOTE | 2020-04-27 15:16 | NUR ---
Discharge Note: JIMMIE CHAVARRIA [facility] Discharge instructions and discharge home medications reviewed with Family Member and a copy given. All questions have been answered and understanding verbalized. Follow appointment information provided to patient. Prescriptions sent to pharmacy by MD. The following instructions and handouts were given: malnutrition, eliquis, and doxycycline Discontinued lines and drains: Peripheral IV intact. Patient discharged to Home w/services with Family Member via Wheelchair
--- NOTE | 2020-04-27 16:20 | RAD ---
Exam: Chest one view INDICATION: Pneumonia TECHNIQUE: Frontal view of the chest Comparisons: 04/20/2020 FINDINGS: The cardiomediastinal silhouette and pulmonary vessels are within normal limits. Hazy opacities in lungs bilaterally. There is small bilateral pleural effusions. Persistent consolidative changes at the right lung apex. IMPRESSION: Interval development of patchy bilateral airspace disease with small bilateral pleural effusions. Findings may relate to pulmonary edema however superimposed infectious process is difficult to exclude. Electronically signed by: Mark Anthony Merino MD (04/27/2020 4:17 PM) [id number]
== END 2020-04-27 15:00 | disposition home health service (06) | DRG 177 ==
LOC: ER 20:52 → ED HOLD 04-21 → 6 SOUTH 04-21 02:54 → 1 WEST ICU 04-21 13:44 → 2 SOUTH 04-22 14:25
PROVIDERS: ADMIT Internal Medicine; ATTEND Internal Medicine
DX: J15.6 Pneumonia due to other Gram-negative bacteria (principal); J96.01 Acute respiratory failure with hypoxia; I21.4 Non-ST elevation (NSTEMI) myocardial infarction; N17.0 Acute kidney failure with tubular necrosis; I82.431 Acute embolism and thrombosis of right popliteal vein; J47.0 Bronchiectasis with acute lower respiratory infection; J98.11 Atelectasis; Z68.1 Body mass index [BMI] 19.9 or less, adult; Z20.828 Contact with and (suspected) exposure to other viral communicable diseases; E03.9 Hypothyroidism, unspecified; E78.5 Hyperlipidemia, unspecified; E83.42 Hypomagnesemia; F41.9 Anxiety disorder, unspecified; H91.90 Unspecified hearing loss, unspecified ear; I11.0 Hypertensive heart disease with heart failure; I25.10 Atherosclerotic heart disease of native coronary artery without angina pectoris; I25.2 Old myocardial infarction; I50.9 Heart failure, unspecified; J43.9 Emphysema, unspecified; K57.30 Diverticulosis of large intestine without perforation or abscess without bleeding; M81.0 Age-related osteoporosis without current pathological fracture; N28.1 Cyst of kidney, acquired; R63.6 Underweight; Z85.118 Personal history of other malignant neoplasm of bronchus and lung; Z90.49 Acquired absence of other specified parts of digestive tract; Z87.891 Personal history of nicotine dependence; Z90.710 Acquired absence of both cervix and uterus; Z92.21 Personal history of antineoplastic chemotherapy; Z95.5 Presence of coronary angioplasty implant and graft; Z92.3 Personal history of irradiation; F32.9 Major depressive disorder, single episode, unspecified; K21.9 Gastro-esophageal reflux disease without esophagitis; M10.9 Gout, unspecified; Z79.899 Other long term (current) drug therapy; Z88.8 Allergy status to other drugs, medicaments and biological substances; Z66 Do not resuscitate
CPT/HCPCS: 31720; 36415; 36600; 71045; 71275; 80048; 80053; 80061; 80069; 80076; 81001; 82728; 82805; 83735; 83880; 84443; 84484; 85007; 85025; 85379; 85520; 85610; 86140; 87070; 87804; 87880; 93005; 93306; 93970; 94640; 94760; 96365; 96375; J0456; J0696; J1170; J1644; J1650; J2405; J3475; J3490; J7030; J7040; J7050; J7060; Q9967; 97110-GP; 97530-GO; 97530-GP; 97535-GO; 99285-25; G0378; J7613; J7626; U0003-CS

== ENCOUNTER → 2021-02-03 | Outpatient (CLI) | payer MEDICARE ==
[~2021-02-03] MED LIST changes: +ACET500T68 PO; +ALBU0.63 NEB; +ALBU2.5V8 IH; +AMLO-186 PO; -AMLO5TAB10 PO; +APIX5TAB PO; +BENZ-8 PO; +BUDE0.5A NEB; +DOXY100C2 PO; -HYDR50TA6 PO; +HYDR50TA9 PO; +IPRA3AMP29 NEB; -ISOS30TA4 PO; +ISOS30TA68 PO; +MIRT-36 PO; -MIRT15TA PO; +MIRT15TA3 PO
--- NOTE | 2021-02-03 13:11 | KCIC ---
Right Lower Extremity Venous Doppler Ultrasound History: Reason: DVT RT leg; Check for resolution / Spl. Instructions: / History: Comparison: April 23, 2020 Procedure: Color flow, duplex, spectral analysis and 2D images are obtained with and without compress ion in the area of the common femoral vein, superficial femoral vein - femoral vein junction, main fe moral vein (superficial femoral vein) and popliteal vein. Veins of the proximal calf are also imaged. Findings: There is normal duplex flow, color flow and compressibility of all visualized vein segments. No evide nce of deep venous thrombus is present. The previously seen thrombus in the popliteal vein has resolv ed. Impression: No evidence of DVT. Electronically signed by: Alfa Farmer III, MD (02/03/2021 1:08 PM) ARTIS
== END ==
LOC: KCIC US 12:31
PROVIDERS: ATTEND Family Medicine
DX: I82.401 Acute embolism and thrombosis of unspecified deep veins of right lower extremity (principal)
CPT/HCPCS: 93971

== ENCOUNTER → 2021-03-14 | Outpatient (CLI) | payer MEDICARE ==
--- NOTE | 2021-03-14 15:52 | RAD ---
EXAM: Chest CT without intravenous contrast. HISTORY: Squamous cell lung cancer. TECHNIQUE: Computed tomographic images of the chest were obtained without contrast. Multiplanar refor matting was performed. *One or more of the following individualized dose reduction techniques were utilized for this examina tion: 1. Automated exposure control. 2. Adjustment of the mA and/or kV according to patient size. 3. Use of iterative reconstruction technique. COMPARISON: 04/23/2020. FINDINGS: There has been no significant change in right suprahilar and anterior apical masslike conso lidation. There calcifications and there is bronchiectasis in this distribution. There is right hemit horax volume loss. There is severe emphysema with bilateral peripheral predominant scarring. There is no pneumothorax or pleural effusion. There is a 7 mm pleural-based groundglass opacity within the po sterior lateral left lower lobe, similar compared to the prior exam. There is linear scarring within the right lung base. The heart is normal in size. There is heavily calcified atherosclerotic plaque involving the aorta an d coronary arteries. No pathologically enlarged lymph node is seen. There is a suspected small hypode nse lesion within the anterior left hepatic lobe measuring 7 mm, difficult to assess in the absence o f contrast and presence of motion. This is stable and likely a cyst. There are simple appearing bilat eral renal cysts, partially included on the [id number]. There is thoracic kyphoscoliosis. There is a severe wedge compression fracture of T5, stable to minim ally increased compared to the prior exam. There are mild chronic appearing compression fractures of T2, T7 and T10 and there are multiple mild endplate depressions and Schmorl's nodes. There are multip le healed rib fractures. IMPRESSION: 1. Stable right suprahilar and anterior apical masslike consolidation with underlying bronchiectasis and associated calcifications. The interval stability favors posttreatment changes. However, stable u nderlying residual malignancy is not excluded. PET/CT may be useful for characterization. 2. Severe emphysema with peripheral pleural parenchymal scarring. There is a stable 7 mm groundglass opacity abutting the pleura of the left lower lobe, likely postinfectious or postinflammatory. Contin ued attention at the time of follow-up is recommended. 3. Multiple chronic appearing vertebral compression fractures. 4. Stable suspected hepatic cyst and simple renal cysts. Follow-up is not routinely performed for sim ple cysts. Electronically signed by: Alejandra Del Rio MD (03/14/2021 3:50 PM) [id number]
== END ==
LOC: CT 13:36
PROVIDERS: ATTEND Radiology Radiation Oncology
DX: C34.11 Malignant neoplasm of upper lobe, right bronchus or lung (principal); K76.89 Other specified diseases of liver; J43.9 Emphysema, unspecified
CPT/HCPCS: 71250

== ENCOUNTER 2021-08-23 21:03 | Inpatient (IN) | payer MEDICARE ==
[~2021-08-23] VITALS: Ht 147.3 cm; Wt 39.4 kg
[~2021-08-23 21:03] MED LIST changes: -DOXY100C2 PO; +DOXY100C3 PO; +MIRT-7 PO; -MIRT15TA3 PO; +POTA-121 PO; +POTA10TA12 PO; +PRED20TA PO; +THEO400C PO
--- NOTE | 2021-08-23 21:19 | PHYS DOC ---
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 Pt had some juice earlier but is not eating/drinking much. Is unaware of patient's fever. Patient has not been vaccinated for Covid. Daughter reports patient is still a full code. Pt denies any active complaints but due to mentation, hx and ros limited. Review of Systems: Review of Systems: ROS: limited due to mentation vs medical condition Heart Score: C/O Chest Pain: No Risk Factors: Risk Factors: DM, Current or recent (<one month) smoker, HTN, HLP, family history of CAD, obesity. Risk Scores: Score 0 - 3: 2.5% MACE over next 6 weeks - Discharge Home Score 4 - 6: 20.3% MACE over next 6 weeks - Admit for Clinical Observation Score 7 - 10: 72.7% MACE over next 6 weeks - Early Invasive Strategies Allergies: Allergies: Allergies Coded Allergies Type Severity Reaction Last Updated Verified aspirin Allergy Intermediate 05/08/16 Yes codeine Allergy Intermediate 05/08/16 Yes methocarbamol Allergy Intermediate 05/08/16 Yes morphine Allergy Intermediate 05/08/16 Yes oxycodone Allergy Intermediate 05/08/16 Yes sulfamethoxazole Allergy Intermediate 05/08/16 Yes tramadol Allergy Intermediate 05/08/16 Yes trimethoprim Allergy Intermediate 05/08/16 Yes ibuprofen Allergy Mild 04/22/20 Yes Physical Exam: PE: Constitutional: Febrile, non-toxic appearance, very thin/frail appearing HENT: Normocephalic, atraumatic, dry mucous membranes Eyes: EOMI, conjunctiva normal, no discharge. Neck: Normal range of motion, supple, no nuchal rigidity or meningismus Cardiovascular: S1/2 present, tachycardic Lungs & Thorax: Speaking in full sentences, bilateral equal chest rise, no tachypnea or increased work of breathing, on 5 L nasal cannula which is her baseline Abdomen: soft, no tenderness, Skin: Warm, dry, no erythema, no rash. [] Back: No tenderness, no CVA tenderness. [] Extremities: No tenderness, no cyanosis, no lower extremity edema Neurologic: Alert, moves all 4 extremities, no focal deficits noted. [] Psychologic: Affect normal, normal mood EKG: EK sinus tachycardia w/pacs 120 bpm, QRS 126, no axis deviation, cannot appreciate any ST elevations or ST depressions, pt has no active complaints Radiology/Procedures: Radiology/Procedures: IMAGING REPORT Signed PATIENT: JIMMIE CHAVARRIA ACCOUNT: [id number] : 1940 LOCATION: ER AGE: 81 SEX: F EXAM STATUS: REG ER ORD. PHYSICIAN: CHAVEZ KENNEDY DO REASON: ams PROCEDURE: CT HEAD WO CONTRAST CT HEAD/BRAIN WO Date: 08/23/2021 9:13 PM Clinical Indication: ams Comparison: 06/30/2019. Technique: 5 mm axial tomographic images were obtained of the head without contrast. These were viewed on brain and bone windows. One or more of the following dose reduction techniques were utilized: Automated exposure control (AEC), Adjustment of mA and/or kV according to patient size, Use of iterative reconstruction technique such as ASiR, CT scan done according to ALARA and image gently/image wisely Findings: Mild generalized cerebral and cerebellar volume loss. Mild to moderate nonspecific periventricular hypoattenuation, most commonly seen with chronic small vessel ischemic disease. Calcified atherosclerosis of the bilateral cavernous and paraclinoid internal carotid arteries and intracranial vertebral arteries. Small area of left frontal encephalomalacia. No intra- or extra-axial mass or fluid collection. No acute hemorrhage. The ventricles are normal in size, shape, and morphology. The coleman-white matter junction is normal. The subarachnoid cisterns are patent. The visualized paranasal sinuses are normal. The visualized portions of the orbits and globes are normal. The mastoid air cells are clear. The vp digital marketing topogram shows no lytic lesion or fracture. Impression: No acute intracranial process. Electronically signed by: Nola Valdivia MD (08/23/2021 9:46 PM) [facility] DICTATED and SIGNED BY: NOLA VALDIVIA MD DATE: 08/23/212933BRC3 0 IMAGING REPORT Signed PATIENT: JIMMIE CHAVARRIA ACCOUNT: [id number] : 1940 LOCATION: ER AGE: 81 SEX: F EXAM STATUS: REG ER ORD. PHYSICIAN: CHAVEZ KENNEDY DO REASON: ams PROCEDURE: PORTABLE CHEST 1V XR CHEST 1V INDICATION: ams . COMPARISON STUDY: 05/01/2021. FINDINGS: Lungs: Elevation of the right hemidiaphragm per Low right lung volume. Diffuse right lung heterogeneous opacities. Pleura: No pleural effusion or pneumothorax. Heart and Mediastinum: The cardiomediastinal silhouette is normal. Atherosclerotic thoracic aorta. IMPRESSION: Diffuse right lung opacities, concerning for an infectious/inflammatory pr ocess.. Electronically signed by: Nola Valdivia MD (08/23/2021 10:05 PM) [facility] DICTATED and SIGNED BY: NOLA VALDIVIA MD DATE: 08/23/210 0 Course & Med Decision Making: Course & Med Decision Making Pertinent Labs and Imaging studies reviewed. (See chart for details) COVID-19 CRITERIA: The patient was evaluated during the global COVID-19 pandemic, and that diagnosis was suspected/considered upon their initial presentation. Their evaluation, treatment and testing was consistent with current guidelines for patients who present with complaints or symptoms that may be related to COVID-19. Concern for sepsis secondary to right-sided pneumonia, Covid test pending. Will start on antibiotics to cover for aspiration pneumonia. Will admit to medicine for further medical management. Patient stable at time admission and her daughter agrees with this plan. I have spoken with the patient and/or caregivers. I have explained the patient's condition, diagnosis and treatment plan based on the information available to me at this time. I have answered the patient's and/or caregivers questions and answered any concerns. The patient and/or caregivers have as good an understanding of the patient's diagnosis, condition and treatment plan as can be expected at this point. The patient has been stabilized within the capability of the emergency department. The patient will be transported for further care and management or will be moved to an observation or inpatient service. I have communicated with the staff or medical practitioner taking over this patient's care. Dragon Disclaimer: Dragon Disclaimer: This electronic medical record was generated, in whole or in part, using a voice recognition dictation system. Departure Departure Impression: Primary Impression: Sepsis Additional Impressions: Pneumonia Failure to thrive Person under investigation for COVID-19 Disposition: 09 ADMITTED INPATIENT Admitting Physician: LATASHA (Dr. Matias) Condition: GUARDED Referrals: MONICA PETERSON (PCP) CHAVEZ KENNEDY DO Aug 23, 2021 21:19
--- NOTE | 2021-08-23 21:48 | RAD ---
CT HEAD/BRAIN WO Date: 08/23/2021 9:13 PM Clinical Indication: ams Comparison: 06/30/2019. Technique: 5 mm axial tomographic images were obtained of the head without contrast. These were view ed on brain and bone windows. One or more of the following dose reduction techniques were utilized: A utomated exposure control (AEC), Adjustment of mA and/or kV according to patient size, Use of iterati ve reconstruction technique such as ASiR, CT scan done according to ALARA and image gently/image simons ly Findings: Mild generalized cerebral and cerebellar volume loss. Mild to moderate nonspecific periventricular hy poattenuation, most commonly seen with chronic small vessel ischemic disease. Calcified atheroscleros is of the bilateral cavernous and paraclinoid internal carotid arteries and intracranial vertebral ar teries. Small area of left frontal encephalomalacia. No intra- or extra-axial mass or fluid collection. No acute hemorrhage. The ventricles are normal in size, shape, and morphology. The coleman-white matter junction is normal. The subarachnoid cisterns are patent. The visualized paranasal sinuses are normal. The visualized portions of the orbits and globes are no rmal. The mastoid air cells are clear. The csr topogram shows no lytic lesion or fracture. Impression: No acute intracranial process. Electronically signed by: Narinder Valdivia MD (08/23/2021 9:46 PM) [facility]
[2021-08-23 21:54] LABS: BASO # 0.1 x10^3/uL (0.0-0.2); BASO % 1 % (0-3); EOS % 0 % (0-3); HEMATOCRIT 33.4 % (36.0-47.0); HEMOGLOBIN 10.2 g/dL (12.0-15.5); LYMPH # 0.5 x10^3/uL (1.0-4.8); LYMPH % 4 % (24-48); MEAN CORPUSCULAR HEMOGLOBIN 28 pg (25-35); MEAN CORPUSCULAR HGB CONC 31 g/dL (31-37); MEAN CORPUSCULAR VOLUME 91 fL (79-100); MONO # 0.9 x10^3/uL (0.0-1.1); MONO % 6 % (0-9); NEUT # 13.6 x10^3/uL (1.8-7.7); NEUT % 90 % (31-73); PLATELET COUNT 333 x10^3/uL (140-400); RED BLOOD COUNT 3.65 x10^6/uL (3.50-5.40); RED CELL DISTRIBUTION WIDTH 15.7 % (11.5-14.5); WHITE BLOOD COUNT 15.1 x10^3/uL (4.0-11.0)
[2021-08-23] MEDS ORDERED: IV NORMAL SALINE 1000ML BAG 1,000 ML IV ONE (22:00)
[2021-08-23] MEDS ORDERED: ACETAMINOPHEN 650 MG/20.3 ML SOLUTION. PEG ONE (22:00)
[2021-08-23 22:05] LABS: PROTHROMBIN TIME PATIENT 15.8 SEC (11.7-14.0)
--- NOTE | 2021-08-23 22:08 | RAD ---
XR CHEST 1V INDICATION: ams . COMPARISON STUDY: 05/01/2021. FINDINGS: Lungs: Elevation of the right hemidiaphragm per Low right lung volume. Diffuse right lung heterogeneo us opacities. Pleura: No pleural effusion or pneumothorax. Heart and Mediastinum: The cardiomediastinal silhouette is normal. Atherosclerotic thoracic aorta. IMPRESSION: Diffuse right lung opacities, concerning for an infectious/inflammatory process.. Electronically signed by: Narinder Valdivia MD (08/23/2021 10:05 PM) [facility]
[2021-08-23 22:15] LABS: INFLUENZA A PATIENT NEGATIVE (NEGATIVE); INFLUENZA B PATIENT NEGATIVE (NEGATIVE)
[2021-08-23 22:19] LABS: CALCIUM 11.9 mg/dL (8.5-10.1); CREATININE 0.9 mg/dL (0.6-1.0); GFR 59.8; POTASSIUM 4.6 mmol/L (3.5-5.1)
[2021-08-23 22:20] LABS: % BANDS 2 % (0-9); % LYMPHS 4 % (24-48); % MONOS 5 % (0-10); % SEGS 89 % (35-66); PLT ESTIMATE ADEQUATE (ADEQUATE)
[2021-08-23 22:21] LABS: ANISOCYTOSIS SLIGHT; HYPOCHROMIA SLIGHT; TOXIC GRANULATION SLIGHT
[2021-08-23 22:22] LABS: ACETAMIN < 2 mcg/ml (10-30); SALIC 1.7 mg/dL (2.8-20.0)
[2021-08-23 22:32] LABS: DIRECT BILIRUBIN 0.1 mg/dL (0.0-0.2); MAGNESIUM 1.7 mg/dL (1.8-2.4); TOTAL BILIRUBIN 0.3 mg/dL (0.2-1.0); TOTAL PROTEIN 6.6 g/dL (6.4-8.2)
[2021-08-23] MEDS ORDERED: CLINDAMYCIN 600MG PREMIX 50 ML IV ONE (23:30)
[2021-08-23] MEDS ORDERED: PIPERACILLIN/TAZOBACTAM 4.5 GM in IV NORMAL SALINE 100ML 100 ML IV ONE (23:30)
[2021-08-23] MEDS ORDERED: PIPERACILLIN/TAZOBACTAM 3.375 GM in IV NORMAL SALINE 50ML 50 ML IV ONE (23:45)
[2021-08-23 23:58] LABS: BILIRUBIN,URINE NEGATIVE (NEG); CLARITY,URINE CLEAR; COLOR,URINE YELLOW; NITRITE,URINE NEGATIVE (NEG); PH,URINE 5.5 (<5.0-8.0); PROTEIN,URINE 30 mg/dL (NEG-TRACE); UROBILINOGEN,URINE 0.2 mg/dL (0.2 mg/dL)
[2021-08-24] VITALS (7 sets, daily range): BP systolic 95–159; BP diastolic 40–77
[2021-08-24 00:05] LABS: AMPHETAMINE/METHAMPHETAMINE NEG (NEG); BARBITURATES NEG (NEG); BENZODIAZEPINES NEG (NEG); CANNABINOIDS NEG (NEG); COCAINE NEG (NEG); METHADONE NEG (NEG); OPIATES NEG (NEG); PHENCYCLIDINE NEG (NEG)
[2021-08-24 00:08] LABS: AMORPHOUS SEDIMENT,UR PRESENT /HPF; BACTERIA,URINE 0 /HPF (0-FEW); RBC,URINE RARE /HPF (0-2); WBC,URINE RARE /HPF (0-4)
--- NOTE | 2021-08-24 01:00 | NUR ---
The patient, JIMMIE CHAVARRIA, 81 y/o, F admitted by REGIS WU III, DO, was given written information regarding hospital policies, unit procedures and contact persons. Valuables were checked and left with her.
--- NOTE | 2021-08-24 05:07 | EKG ---
[facility] [address] [place] [address] Test Date: 2021-08-23 Test Time: 21:18:47 Pat Name: JIMMIE CHAVARRIA Department: Room: 578 1 Gender: F Consulting Services Associate: : 1940 Requested By: CHAVEZ KENNEDY Order Number: [id number] Reading MD: Stefano Benson Measurements Intervals [place] Rate: 120 P: -42 ID: [id number] QRS: 54 QRSD: 126 T: 41 QT: 288 QTc: 411 Interpretive Statements SINUS TACHYCARDIA ATRIAL PREMATURE COMPLEX(ES), TRIGEMINY Electronically Signed On 08-24-2021 15:57:38 CDT by Stefano Benson
--- NOTE | 2021-08-24 06:11 | NUR ---
Patient does not have diet order d/t concerns for aspiration pneumonia, STATEMENT CLERK sat patient up at 45 degrees and gave Patient juice, Patient tolerated well.
[2021-08-24] MEDS ORDERED: BISACODYL 10 MG SUPP.RECT. PR PRN (08:00)
[2021-08-24] MEDS ORDERED: PIP/TAZO PER PHARMACY MC PRN (08:00)
[2021-08-24] MEDS ORDERED: IV RINGERS,LACTATED 1000ML 1,000 ML IV ONE (08:00)
[2021-08-24] MEDS ORDERED: ACETAMINOPHEN 650 MG SUPP.RECT. PR PRN (08:00)
[2021-08-24] MEDS ORDERED: ONDANSETRON ODT 4 MG TAB.RAPDIS. PO PRN (08:00)
--- NOTE | 2021-08-24 08:02 | PDOC1 ---
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 She lives at home and recently 2 weeks ago her daughter noted she could no longer live alone she has not been eating well for the last 4 days more confused. She is confused but moving all 4 extremities will follow commands. Not oriented to location or month day or year. Head CT with no abnormalities, chest radiograph with significant right-sided changes. Labs with WBC 15.1, Hb 10.2, platelets 333, INR 1.3, NA 145, K4.6, BUN 21, CR 0.9, glucose 94, calcium 11.9, magnesium 1.7, albumin 2, LFTs otherwise within normal laboratory limits, troponin 0, ammonia negative, NT proBNP 1636, lactic acid 1.1, urine drug screen negative, urinalysis bland, rapid influenza negative, rapid COVID-19 negative She is not vaccinated against Covid her daughter notes this is because she thinks her mother is too high risk to have the COVID-19 vaccine Admitted for further care. Past Medical History Cardiovascular: CAD, CHF, HTN, Hyperlipidemia Pulmonary: COPD GI: Diverticulosis, GERD Heme/Onc: Cancer Psych: Depression Musculoskeletal: low back pain, Osteoarthritis Renal/: UTI, Other Endocrine: Osteoporosis Past Surgical History Past Surgical History: Hysterectomy, Other Family History Family History: No Significant Social History Smoke: No ALCOHOL: none Drugs: None Current Problem List Problem List Problems Medical Problems: (1) Failure to thrive Status: Acute (2) Sepsis Status: Acute Current Medications Current Medications Current Medications Sodium Chloride 1,000 ml @ 1,000 mls/hr 1X ONCE IV Last administered on 08/23/21at 21:53; Start 08/23/21 at 22:00; Stop 08/23/21 at 22:59; Status DC Acetaminophen (Tylenol) 650 mg 1X ONCE PEG ; Start 08/23/21 at 22:00; Stop 08/23/21 at 22:01; Status DC Piperacillin Sod/ Tazobactam Sod 4.5 gm/Sodium Chloride 100 ml @ 200 mls/hr 1X ONCE IV ; Start 08/23/21 at 23:30; Stop 08/23/21 at 23:59; Status Cancel Clindamycin Phosphate 50 ml @ 100 mls/hr 1X ONCE IV Last administered on 08/23/21at 23:51; Start 08/23/21 at 23:30; Stop 08/23/21 at 23:59; Status DC Piperacillin Sod/ Tazobactam Sod 3.375 gm/Sodium Chloride 50 ml @ 100 mls/hr 1X ONCE IV Last administered on 08/23/21at 23:41; Start 08/23/21 at 23:45; Stop 08/24/21 at 00:14; Status DC Active Scripts Active Prednisone 20 Mg Tablet 40 Mg PO DAILY 3 Days Atorvastatin Calcium 20 Mg Tablet 20 Mg PO QHS Acetaminophen 500 Mg Tablet 500 Mg PO PRN Q6HRS PRN 30 Days Clopidogrel (Clopidogrel Bisulfate) 75 Mg Tablet 75 Mg PO [id number] 30 Days Reported Metoprolol Succinate ( Xl ) (Metoprolol Succinate) 25 Mg Tab.er.24h 1 Tab PO BID Clonidine Hcl 0.1 Mg Tablet 0.1 Mg PO DAILY PRN Melo-24 (Theophylline Anhydrous) 400 Mg Cap.er.24h 1 Cap PO DAILY 30 Days Isosorbide Mononitrate Er (Isosorbide Mononitrate) 30 Mg Tab.er.24h 1 Tab PO DAILY Potassium Chloride (Potassium Chloride) 10 Meq Tab.sr.24h 10 Meq PO DAILY Mirtazapine 15 Mg Tablet 15 Mg PO DAILY Super B Maxi Complex Caplet (Vitamin B Complex/Folic Acid) 0.4 Mg Tablet 0.4 Mg PO DAILY Ferrous Sulfate 325 Mg Tablet 325 Mg PO DAILY Vitamin D (Cholecalciferol (Vitamin D3)) 2,000 Unit Capsule 2,000 Unit PO BID Colace (Docusate Sodium) 100 Mg Capsule 100 Mg PO HS Nexium Capsule (Esomeprazole Magnesium) 40 Mg Capsule.dr 1 Cap PO DAILY Levothyroxine Sodium 75 Mcg Tablet 1 Tab PO DAILY Gabapentin (Gabapentin) 100 Mg Capsule 200 Mg PO HS Allergies Allergies: Coded Allergies: aspirin (Verified Allergy, Intermediate, 05/08/16) codeine (Verified Allergy, Intermediate, 05/08/16) methocarbamol (Verified Allergy, Intermediate, 05/08/16) morphine (Verified Allergy, Intermediate, 05/08/16) Morphine Sulfate ER 15 mg oxycodone (Verified Allergy, Intermediate, 05/08/16) sulfamethoxazole (Verified Allergy, Intermediate, 05/08/16) tramadol (Verified Allergy, Intermediate, 05/08/16) trimethoprim (Verified Allergy, Intermediate, 05/08/16) ibuprofen (Verified Allergy, Mild, 04/22/20) ROS Review of System Unable to obtain due to confusion, attempted 11 point ROS Physical Exam General: mild distress, Other (Obtunded) HEENT: Atraumatic, PERRLA, EOMI, Mucous membr. moist/pink Lungs: Other (Right sided crackles) Heart: S1S2, RRR, no thrills, no rubs, no gallops, no murmurs Abdomen: Normal bowel sounds, Soft, No tenderness, No hepatosplenomegaly, No masses Rectal Exam: not examined Extremities: No clubbing, No cyanosis, No edema, Normal pulses, No tenderness/swelling Skin: No rashes Neuro: Reflexes 2+ Psych/Mental Status: Other (Obtunded) Vitals Vitals Vital Signs Date Time Temp Pulse Resp B/P (MAP) Pulse Ox O2 Delivery O2 Flow Rate FiO2 08/24/21 03:28 93 36 99/40 (59) 99 Nasal Cannula 5.0 08/24/21 01:05 98.4 98.4 Labs Labs Laboratory Tests Test 08/23/21 21:42 08/23/21 21:47 08/23/21 23:40 White Blood Count 15.1 x10^3/uL (4.0-11.0) Red Blood Count 3.65 x10^6/uL (3.50-5.40) Hemoglobin 10.2 g/dL (12.0-15.5) Hematocrit 33.4 % (36.0-47.0) Mean Corpuscular Volume 91 fL (79-100) Mean Corpuscular Hemoglobin 28 pg (25-35) Mean Corpuscular Hemoglobin Concent 31 g/dL (31-37) Red Cell Distribution Width 15.7 % (11.5-14.5) Platelet Count 333 x10^3/uL (140-400) Neutrophils (%) (Auto) 90 % (31-73) Lymphocytes (%) (Auto) 4 % (24-48) Monocytes (%) (Auto) 6 % (0-9) Eosinophils (%) (Auto) 0 % (0-3) Basophils (%) (Auto) 1 % (0-3) Neutrophils # (Auto) 13.6 x10^3/uL (1.8-7.7) Lymphocytes # (Auto) 0.5 x10^3/uL (1.0-4.8) Monocytes # (Auto) 0.9 x10^3/uL (0.0-1.1) Eosinophils # (Auto) 0.0 x10^3/uL (0.0-0.7) Basophils # (Auto) 0.1 x10^3/uL (0.0-0.2) Segmented Neutrophils % 89 % (35-66) Band Neutrophils % 2 % (0-9) Lymphocytes % 4 % (24-48) Monocytes % 5 % (0-10) Toxic Granulation Slight Platelet Estimate Adequate (ADEQUATE) Hypochromasia Slight Basophilic Stippling Present Anisocytosis Slight Prothrombin Time 15.8 SEC (11.7-14.0) Prothromb Time International Ratio 1.3 (0.8-1.1) Activated Partial Thromboplast Time 33 SEC (24-38) Sodium Level 145 mmol/L (136-145) Potassium Level 4.6 mmol/L (3.5-5.1) Chloride Level 105 mmol/L (98-107) Carbon Dioxide Level 32 mmol/L (21-32) Anion Gap 8 (6-14) Blood Urea Nitrogen 21 mg/dL (7-20) Creatinine 0.9 mg/dL (0.6-1.0) Estimated GFR (Cockcroft-Gault) 59.8 Glucose Level 94 mg/dL (70-99) Lactic Acid Level 1.1 mmol/L (0.4-2.0) Calcium Level 11.9 mg/dL (8.5-10.1) Magnesium Level 1.7 mg/dL (1.8-2.4) Total Bilirubin 0.3 mg/dL (0.2-1.0) Direct Bilirubin 0.1 mg/dL (0.0-0.2) Aspartate Amino Transf (AST/SGOT) 28 U/L (15-37) Alanine Aminotransferase (ALT/SGPT) 14 U/L (14-59) Alkaline Phosphatase 77 U/L (46-116) Ammonia < 10 mcmol/L (11-34) Creatine Kinase 115 U/L (26-192) Troponin I Quantitative < 0.017 ng/mL (0.000-0.055) YE-Lpm-C-Type Natriuretic Peptide 1636 pg/mL (0-449) Total Protein 6.6 g/dL (6.4-8.2) Albumin 2.0 g/dL (3.4-5.0) Salicylates Level 1.7 mg/dL (2.8-20.0) Salicylate Last Dose Date Unknown Salicylate Last Dose Time Unknown Acetaminophen Level < 2 mcg/ml (10-30) Acetaminophen Last Dose Date Unknown Acetaminophen Last Dose Time [place] Influenza Type A Antigen Negative (NEGATIVE) Influenza Type B Antigen Negative (NEGATIVE) SARS-CoV-2 Antigen (Rapid) Negative (NEGATIVE) Urine Collection Type U cath Urine Color Yellow Urine Clarity Clear Urine pH 5.5 (<5.0-8.0) Urine Specific [place] 1.015 (1.000-1.030) Urine Protein 30 mg/dL (NEG-TRACE) Urine Glucose (UA) Negative mg/dL (NEG) Urine Ketones (Stick) 15 mg/dL (NEG) Urine Blood Negative (NEG) Urine Nitrite Negative (NEG) Urine Bilirubin Negative (NEG) Urine Urobilinogen Dipstick 0.2 mg/dL (0.2 mg/dL) Urine Leukocyte Esterase Negative (NEG) Urine RBC Rare /HPF (0-2) Urine WBC Rare /HPF (0-4) Urine Squamous Epithelial Cells Few /LPF Urine Amorphous Sediment Present /HPF Urine Bacteria 0 /HPF (0-FEW) Urine Mucus Slight /LPF Urine Opiates Screen Neg (NEG) Urine Methadone Screen Neg (NEG) Urine Barbiturates Neg (NEG) Urine Phencyclidine Screen Neg (NEG) Urine Amphetamine/Methamphetamine Neg (NEG) Urine Benzodiazepines Screen Neg (NEG) Urine Cocaine Screen Neg (NEG) Urine Cannabinoids Screen Neg (NEG) Urine Ethyl Alcohol Neg (NEG) Laboratory Tests Test 08/23/21 21:42 08/23/21 21:47 08/23/21 23:40 White Blood Count 15.1 x10^3/uL (4.0-11.0) Red Blood Count 3.65 x10^6/uL (3.50-5.40) Hemoglobin 10.2 g/dL (12.0-15.5) Hematocrit 33.4 % (36.0-47.0) Mean Corpuscular Volume 91 fL (79-100) Mean Corpuscular Hemoglobin 28 pg (25-35) Mean Corpuscular Hemoglobin Concent 31 g/dL (31-37) Red Cell Distribution Width 15.7 % (11.5-14.5) Platelet Count 333 x10^3/uL (140-400) Neutrophils (%) (Auto) 90 % (31-73) Lymphocytes (%) (Auto) 4 % (24-48) Monocytes (%) (Auto) 6 % (0-9) Eosinophils (%) (Auto) 0 % (0-3) Basophils (%) (Auto) 1 % (0-3) Neutrophils # (Auto) 13.6 x10^3/uL (1.8-7.7) Lymphocytes # (Auto) 0.5 x10^3/uL (1.0-4.8) Monocytes # (Auto) 0.9 x10^3/uL (0.0-1.1) Eosinophils # (Auto) 0.0 x10^3/uL (0.0-0.7) Basophils # (Auto) 0.1 x10^3/uL (0.0-0.2) Segmented Neutrophils % 89 % (35-66) Band Neutrophils % 2 % (0-9) Lymphocytes % 4 % (24-48) Monocytes % 5 % (0-10) Toxic Granulation Slight Platelet Estimate Adequate (ADEQUATE) Hypochromasia Slight Basophilic Stippling Present Anisocytosis Slight Prothrombin Time 15.8 SEC (11.7-14.0) Prothromb Time International Ratio 1.3 (0.8-1.1) Activated Partial Thromboplast Time 33 SEC (24-38) Sodium Level 145 mmol/L (136-145) Potassium Level 4.6 mmol/L (3.5-5.1) Chloride Level 105 mmol/L (98-107) Carbon Dioxide Level 32 mmol/L (21-32) Anion Gap 8 (6-14) Blood Urea Nitrogen 21 mg/dL (7-20) Creatinine 0.9 mg/dL (0.6-1.0) Estimated GFR (Cockcroft-Gault) 59.8 Glucose Level 94 mg/dL (70-99) Lactic Acid Level 1.1 mmol/L (0.4-2.0) Calcium Level 11.9 mg/dL (8.5-10.1) Magnesium Level 1.7 mg/dL (1.8-2.4) Total Bilirubin 0.3 mg/dL (0.2-1.0) Direct Bilirubin 0.1 mg/dL (0.0-0.2) Aspartate Amino Transf (AST/SGOT) 28 U/L (15-37) Alanine Aminotransferase (ALT/SGPT) 14 U/L (14-59) Alkaline Phosphatase 77 U/L (46-116) Ammonia < 10 mcmol/L (11-34) Creatine Kinase 115 U/L (26-192) Troponin I Quantitative < 0.017 ng/mL (0.000-0.055) [place]-G-Type Natriuretic Peptide 1636 pg/mL (0-449) Total Protein 6.6 g/dL (6.4-8.2) Albumin 2.0 g/dL (3.4-5.0) Salicylates Level 1.7 mg/dL (2.8-20.0) Salicylate Last Dose Date Unknown Salicylate Last Dose Time Unknown Acetaminophen Level < 2 mcg/ml (10-30) Acetaminophen Last Dose Date Unknown Acetaminophen Last Dose Time [place] Influenza Type A Antigen Negative (NEGATIVE) Influenza Type B Antigen Negative (NEGATIVE) SARS-CoV-2 Antigen (Rapid) Negative (NEGATIVE) Urine Collection Type U cath Urine Color Yellow Urine Clarity Clear Urine pH 5.5 (<5.0-8.0) Urine Specific [place] 1.015 (1.000-1.030) Urine Protein 30 mg/dL (NEG-TRACE) Urine Glucose (UA) Negative mg/dL (NEG) Urine Ketones (Stick) 15 mg/dL (NEG) Urine Blood Negative (NEG) Urine Nitrite Negative (NEG) Urine Bilirubin Negative (NEG) Urine Urobilinogen Dipstick 0.2 mg/dL (0.2 mg/dL) Urine Leukocyte Esterase Negative (NEG) Urine RBC Rare /HPF (0-2) Urine WBC Rare /HPF (0-4) Urine Squamous Epithelial Cells Few /LPF Urine Amorphous Sediment Present /HPF Urine Bacteria 0 /HPF (0-FEW) Urine Mucus Slight /LPF Urine Opiates Screen Neg (NEG) Urine Methadone Screen Neg (NEG) Urine Barbiturates Neg (NEG) Urine Phencyclidine Screen Neg (NEG) Urine Amphetamine/Methamphetamine Neg (NEG) Urine Benzodiazepines Screen Neg (NEG) Urine Cocaine Screen Neg (NEG) Urine Cannabinoids Screen Neg (NEG) Urine Ethyl Alcohol Neg (NEG) Images Images CT head without contrast: Mild generalized cerebral and cerebellar volume loss. Mild to moderate nonspecific periventricular hypoattenuation, most commonly seen with chronic small vessel ischemic disease. Calcified atherosclerosis of the bilateral cavernous and paraclinoid internal carotid arteries and intracranial vertebral arteries. Small area of left frontal encephalomalacia. No intra- or extra-axial mass or fluid collection. No acute hemorrhage. The ventricles are normal in size, shape, and morphology. The coleman-white matter junction is normal. The subarachnoid cisterns are patent. The visualized paranasal sinuses are normal. The visualized portions of the orbits and globes are normal. The mastoid air cells are clear. The rattan worker topogram shows no lytic lesion or fracture. Impression: No acute intracranial process. VTE Prophylaxis Ordered VTE Prophylaxis Devices: No VTE Pharmacological Prophylaxi: Yes Assessment/Plan Assessment/Plan A/P: Acute respiratory failure with hypoxia - likely COPD exacerbation and pneumonia, possibly RUL around her mass. Will treat for both. rapid influenza and rapid SARS-CoV-2 negative. Acute encephalopathy - metabolic due to hypoxia, hypercalcemia, will continue to altered mental status. No focal neurologic deficits. Her daughter does note she has had significant cognitive decline over the last 3 years but no formal diagnosis of dementia Hypercalcemia - possibly due to dehydration/free water access issue vs hypercalcemia of malignancy. 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 No recent PET scan available RENETTA on CKD - likely vasomotor nephropathy Sepsis - due to pneumonia, likely aspiration, given empiric fluids and antibiotics Hypernatremia - Likely nutrititional, has not been eating Abnormal weight loss - severe protein calorie malnutrition. Has not been eating, likely cachexia from cancer and COPD H/o GOUT - check uric acid level GERD - on PPI HTN - BP low currently. On metoprolol at home, will hold for now Hypothyroidism - frequently does not take her doses, TSH low, likely needs dose reduction Prior DVT - off anticoagulation due to concern for falls CAD s/p stenting - on cardiac meds Osteoporosis. Previously noted likely chronic. COPD -severe end-stage on chronic 5 L of oxygen at home with significant emphys ematous changes of lungs. Currently in acute exacerbation keep O2 between 89 to 92% and give aggressive nebulizer treatments. Pulmonology consulted. Severe protein malnutrition, present upon admission. FEN - NPO PPX - heparin CODE - DNR/DNI - [place] and Shelton Barksdale and her surrogate decision makers Dispo - inpatient Justifications for Admission Other Justification DORA WOODSON MD Aug 24, 2021 08:02
[2021-08-24 09:28] LABS: BASO % 0 % (0-3); EOS % 0 % (0-3); HEMATOCRIT 26.6 % (36.0-47.0); HEMOGLOBIN 8.3 g/dL (12.0-15.5); LYMPH # 1.2 x10^3/uL (1.0-4.8); LYMPH % 14 % (24-48); MEAN CORPUSCULAR HEMOGLOBIN 29 pg (25-35); MEAN CORPUSCULAR HGB CONC 31 g/dL (31-37); MEAN CORPUSCULAR VOLUME 91 fL (79-100); MONO % 11 % (0-9); NEUT # 6.8 x10^3/uL (1.8-7.7); NEUT % 75 % (31-73); PLATELET COUNT 244 x10^3/uL (140-400); RED BLOOD COUNT 2.91 x10^6/uL (3.50-5.40); RED CELL DISTRIBUTION WIDTH 15.5 % (11.5-14.5); WHITE BLOOD COUNT 9.1 x10^3/uL (4.0-11.0)
[2021-08-24 09:33] LABS: ALBUMIN 1.5 g/dL (3.4-5.0); CALCIUM 10.9 mg/dL (8.5-10.1); CREATININE 0.9 mg/dL (0.6-1.0); GFR 59.8; PHOSPHORUS 3.7 mg/dL (2.6-4.7); POTASSIUM 3.6 mmol/L (3.5-5.1)
[2021-08-24] MEDS: PIPERACILLIN/TAZOBACTAM 2.25 GM in IV NORMAL SALINE 50ML 50 ML IV SCH ×2 (09:41→18:34)
[2021-08-24] MEDS: HEPARIN for SUB-Q USE 5,000 UNIT/ML VIAL. SQ SCH ×3 (09:46→21:42)
--- NOTE | 2021-08-24 09:54 | PDOC ---
PULMONARY PROGRESS NOTES DATE: 08/24/21 TIME: 09:54 Vitals Vital Signs Date Time Temp Pulse Resp B/P (MAP) Pulse Ox O2 Delivery O2 Flow Rate FiO2 08/24/21 07:00 97.4 94 16 95/46 (62) 93 Nasal Cannula 5.0 97.4 General: Confused Lungs: Clear Cardiovascular: S1 Abdomen: Soft Extremities: No Edema Labs Laboratory Tests Test 08/23/21 21:42 08/23/21 21:47 08/23/21 23:40 08/24/21 09:10 White Blood Count 15.1 x10^3/uL (4.0-11.0) 9.1 x10^3/uL (4.0-11.0) Red Blood Count 3.65 x10^6/uL (3.50-5.40) 2.91 x10^6/uL (3.50-5.40) Hemoglobin 10.2 g/dL (12.0-15.5) 8.3 g/dL (12.0-15.5) Hematocrit 33.4 % (36.0-47.0) 26.6 % (36.0-47.0) Mean Corpuscular Volume 91 fL (79-100) 91 fL (79-100) Mean Corpuscular Hemoglobin 28 pg (25-35) 29 pg (25-35) Mean Corpuscular Hemoglobin Concent 31 g/dL (31-37) 31 g/dL (31-37) Red Cell Distribution Width 15.7 % (11.5-14.5) 15.5 % (11.5-14.5) Platelet Count 333 x10^3/uL (140-400) 244 x10^3/uL (140-400) Neutrophils (%) (Auto) 90 % (31-73) 75 % (31-73) Lymphocytes (%) (Auto) 4 % (24-48) 14 % (24-48) Monocytes (%) (Auto) 6 % (0-9) 11 % (0-9) Eosinophils (%) (Auto) 0 % (0-3) 0 % (0-3) Basophils (%) (Auto) 1 % (0-3) 0 % (0-3) Neutrophils # (Auto) 13.6 x10^3/uL (1.8-7.7) 6.8 x10^3/uL (1.8-7.7) Lymphocytes # (Auto) 0.5 x10^3/uL (1.0-4.8) 1.2 x10^3/uL (1.0-4.8) Monocytes # (Auto) 0.9 x10^3/uL (0.0-1.1) 1.0 x10^3/uL (0.0-1.1) Eosinophils # (Auto) 0.0 x10^3/uL (0.0-0.7) 0.0 x10^3/uL (0.0-0.7) Basophils # (Auto) 0.1 x10^3/uL (0.0-0.2) 0.0 x10^3/uL (0.0-0.2) Segmented Neutrophils % 89 % (35-66) Band Neutrophils % 2 % (0-9) Lymphocytes % 4 % (24-48) Monocytes % 5 % (0-10) Toxic Granulation Slight Platelet Estimate Adequate (ADEQUATE) Hypochromasia Slight Basophilic Stippling Present Anisocytosis Slight Prothrombin Time 15.8 SEC (11.7-14.0) Prothromb Time International Ratio 1.3 (0.8-1.1) Activated Partial Thromboplast Time 33 SEC (24-38) Sodium Level 145 mmol/L (136-145) 145 mmol/L (136-145) Potassium Level 4.6 mmol/L (3.5-5.1) 3.6 mmol/L (3.5-5.1) Chloride Level 105 mmol/L (98-107) 109 mmol/L (98-107) Carbon Dioxide Level 32 mmol/L (21-32) 33 mmol/L (21-32) Anion Gap 8 (6-14) 3 (6-14) Blood Urea Nitrogen 21 mg/dL (7-20) 20 mg/dL (7-20) Creatinine 0.9 mg/dL (0.6-1.0) 0.9 mg/dL (0.6-1.0) Estimated GFR (Cockcroft-Gault) 59.8 59.8 Glucose Level 94 mg/dL (70-99) 92 mg/dL (70-99) Lactic Acid Level 1.1 mmol/L (0.4-2.0) Calcium Level 11.9 mg/dL (8.5-10.1) 10.9 mg/dL (8.5-10.1) Magnesium Level 1.7 mg/dL (1.8-2.4) Total Bilirubin 0.3 mg/dL (0.2-1.0) Direct Bilirubin 0.1 mg/dL (0.0-0.2) Aspartate Amino Transf (AST/SGOT) 28 U/L (15-37) Alanine Aminotransferase (ALT/SGPT) 14 U/L (14-59) Alkaline Phosphatase 77 U/L (46-116) Ammonia < 10 mcmol/L (11-34) Creatine Kinase 115 U/L (26-192) Troponin I Quantitative < 0.017 ng/mL (0.000-0.055) CW-Uyz-U-Type Natriuretic Peptide 1636 pg/mL (0-449) Total Protein 6.6 g/dL (6.4-8.2) Albumin 2.0 g/dL (3.4-5.0) 1.5 g/dL (3.4-5.0) Salicylates Level 1.7 mg/dL (2.8-20.0) Salicylate Last Dose Date Unknown Salicylate Last Dose Time Unknown Acetaminophen Level < 2 mcg/ml (10-30) Acetaminophen Last Dose Date Unknown Acetaminophen Last Dose Time [place] Influenza Type A Antigen Negative (NEGATIVE) Influenza Type B Antigen Negative (NEGATIVE) SARS-CoV-2 Antigen (Rapid) Negative (NEGATIVE) Urine Collection Type U cath Urine Color Yellow Urine Clarity Clear Urine pH 5.5 (<5.0-8.0) Urine Specific [place] 1.015 (1.000-1.030) Urine Protein 30 mg/dL (NEG-TRACE) Urine Glucose (UA) Negative mg/dL (NEG) Urine Ketones (Stick) 15 mg/dL (NEG) Urine Blood Negative (NEG) Urine Nitrite Negative (NEG) Urine Bilirubin Negative (NEG) Urine Urobilinogen Dipstick 0.2 mg/dL (0.2 mg/dL) Urine Leukocyte Esterase Negative (NEG) Urine RBC Rare /HPF (0-2) Urine WBC Rare /HPF (0-4) Urine Squamous Epithelial Cells Few /LPF Urine Amorphous Sediment Present /HPF Urine Bacteria 0 /HPF (0-FEW) Urine Mucus Slight /LPF Urine Opiates Screen Neg (NEG) Urine Methadone Screen Neg (NEG) Urine Barbiturates Neg (NEG) Urine Phencyclidine Screen Neg (NEG) Urine Amphetamine/Methamphetamine Neg (NEG) Urine Benzodiazepines Screen Neg (NEG) Urine Cocaine Screen Neg (NEG) Urine Cannabinoids Screen Neg (NEG) Urine Ethyl Alcohol Neg (NEG) Phosphorus Level 3.7 mg/dL (2.6-4.7) Laboratory Tests Test 08/23/21 21:42 08/23/21 21:47 08/23/21 23:40 08/24/21 09:10 White Blood Count 15.1 x10^3/uL (4.0-11.0) 9.1 x10^3/uL (4.0-11.0) Red Blood Count 3.65 x10^6/uL (3.50-5.40) 2.91 x10^6/uL (3.50-5.40) Hemoglobin 10.2 g/dL (12.0-15.5) 8.3 g/dL (12.0-15.5) Hematocrit 33.4 % (36.0-47.0) 26.6 % (36.0-47.0) Mean Corpuscular Volume 91 fL (79-100) 91 fL (79-100) Mean Corpuscular Hemoglobin 28 pg (25-35) 29 pg (25-35) Mean Corpuscular Hemoglobin Concent 31 g/dL (31-37) 31 g/dL (31-37) Red Cell Distribution Width 15.7 % (11.5-14.5) 15.5 % (11.5-14.5) Platelet Count 333 x10^3/uL (140-400) 244 x10^3/uL (140-400) Neutrophils (%) (Auto) 90 % (31-73) 75 % (31-73) Lymphocytes (%) (Auto) 4 % (24-48) 14 % (24-48) Monocytes (%) (Auto) 6 % (0-9) 11 % (0-9) Eosinophils (%) (Auto) 0 % (0-3) 0 % (0-3) Basophils (%) (Auto) 1 % (0-3) 0 % (0-3) Neutrophils # (Auto) 13.6 x10^3/uL (1.8-7.7) 6.8 x10^3/uL (1.8-7.7) Lymphocytes # (Auto) 0.5 x10^3/uL (1.0-4.8) 1.2 x10^3/uL (1.0-4.8) Monocytes # (Auto) 0.9 x10^3/uL (0.0-1.1) 1.0 x10^3/uL (0.0-1.1) Eosinophils # (Auto) 0.0 x10^3/uL (0.0-0.7) 0.0 x10^3/uL (0.0-0.7) Basophils # (Auto) 0.1 x10^3/uL (0.0-0.2) 0.0 x10^3/uL (0.0-0.2) Segmented Neutrophils % 89 % (35-66) Band Neutrophils % 2 % (0-9) Lymphocytes % 4 % (24-48) Monocytes % 5 % (0-10) Toxic Granulation Slight Platelet Estimate Adequate (ADEQUATE) Hypochromasia Slight Basophilic Stippling Present Anisocytosis Slight Prothrombin Time 15.8 SEC (11.7-14.0) Prothromb Time International Ratio 1.3 (0.8-1.1) Activated Partial Thromboplast Time 33 SEC (24-38) Sodium Level 145 mmol/L (136-145) 145 mmol/L (136-145) Potassium Level 4.6 mmol/L (3.5-5.1) 3.6 mmol/L (3.5-5.1) Chloride Level 105 mmol/L (98-107) 109 mmol/L (98-107) Carbon Dioxide Level 32 mmol/L (21-32) 33 mmol/L (21-32) Anion Gap 8 (6-14) 3 (6-14) Blood Urea Nitrogen 21 mg/dL (7-20) 20 mg/dL (7-20) Creatinine 0.9 mg/dL (0.6-1.0) 0.9 mg/dL (0.6-1.0) Estimated GFR (Cockcroft-Gault) 59.8 59.8 Glucose Level 94 mg/dL (70-99) 92 mg/dL (70-99) Lactic Acid Level 1.1 mmol/L (0.4-2.0) Calcium Level 11.9 mg/dL (8.5-10.1) 10.9 mg/dL (8.5-10.1) Magnesium Level 1.7 mg/dL (1.8-2.4) Total Bilirubin 0.3 mg/dL (0.2-1.0) Direct Bilirubin 0.1 mg/dL (0.0-0.2) Aspartate Amino Transf (AST/SGOT) 28 U/L (15-37) Alanine Aminotransferase (ALT/SGPT) 14 U/L (14-59) Alkaline Phosphatase 77 U/L (46-116) Ammonia < 10 mcmol/L (11-34) Creatine Kinase 115 U/L (26-192) Troponin I Quantitative < 0.017 ng/mL (0.000-0.055) KO-Xpp-B-Type Natriuretic Peptide 1636 pg/mL (0-449) Total Protein 6.6 g/dL (6.4-8.2) Albumin 2.0 g/dL (3.4-5.0) 1.5 g/dL (3.4-5.0) Salicylates Level 1.7 mg/dL (2.8-20.0) Salicylate Last Dose Date Unknown Salicylate Last Dose Time Unknown Acetaminophen Level < 2 mcg/ml (10-30) Acetaminophen Last Dose Date Unknown Acetaminophen Last Dose Time [place] Influenza Type A Antigen Negative (NEGATIVE) Influenza Type B Antigen Negative (NEGATIVE) SARS-CoV-2 Antigen (Rapid) Negative (NEGATIVE) Urine Collection Type U cath Urine Color Yellow Urine Clarity Clear Urine pH 5.5 (<5.0-8.0) Urine Specific [place] 1.015 (1.000-1.030) Urine Protein 30 mg/dL (NEG-TRACE) Urine Glucose (UA) Negative mg/dL (NEG) Urine Ketones (Stick) 15 mg/dL (NEG) Urine Blood Negative (NEG) Urine Nitrite Negative (NEG) Urine Bilirubin Negative (NEG) Urine Urobilinogen Dipstick 0.2 mg/dL (0.2 mg/dL) Urine Leukocyte Esterase Negative (NEG) Urine RBC Rare /HPF (0-2) Urine WBC Rare /HPF (0-4) Urine Squamous Epithelial Cells Few /LPF Urine Amorphous Sediment Present /HPF Urine Bacteria 0 /HPF (0-FEW) Urine Mucus Slight /LPF Urine Opiates Screen Neg (NEG) Urine Methadone Screen Neg (NEG) Urine Barbiturates Neg (NEG) Urine Phencyclidine Screen Neg (NEG) Urine Amphetamine/Methamphetamine Neg (NEG) Urine Benzodiazepines Screen Neg (NEG) Urine Cocaine Screen Neg (NEG) Urine Cannabinoids Screen Neg (NEG) Urine Ethyl Alcohol Neg (NEG) Phosphorus Level 3.7 mg/dL (2.6-4.7) Medications Active Scripts Medications Dose Route/Sig Max Daily Dose Days Date Category Prednisone 20 Mg Tablet 40 Mg PO DAILY 3 05/04/21 Rx Atorvastatin Calcium 20 Mg Tablet 20 Mg PO QHS 05/04/21 Rx Metoprolol Succinate ( Xl ) (Metoprolol Succinate) 25 Mg Tab.er.24h 1 Tab PO BID 04/29/21 Reported Clonidine Hcl 0.1 Mg Tablet 0.1 Mg PO DAILY PRN 04/24/21 Reported Melo-24 (Theophylline Anhydrous) 400 Mg Cap.er.24h 1 Cap PO DAILY 30 04/24/21 Reported Isosorbide Mononitrate Er (Isosorbide Mononitrate) 30 Mg Tab.er.24h 1 Tab PO DAILY 04/24/21 Reported Potassium Chloride (Potassium Chloride) 10 Meq Tab.sr.24h 10 Meq PO DAILY 04/24/21 Reported Acetaminophen 500 Mg Tablet 500 Mg PO PRN Q6HRS PRN 30 04/27/20 Rx Mirtazapine 15 Mg Tablet 15 Mg PO DAILY 04/21/20 Reported Clopidogrel (Clopidogrel Bisulfate) 75 Mg Tablet 75 Mg PO DAILYWBKFT 30 04/25/19 Rx Super B Maxi Complex Caplet (Vitamin B Complex/Folic Acid) 0.4 Mg Tablet 0.4 Mg PO DAILY 04/22/19 Reported Ferrous Sulfate 325 Mg Tablet 325 Mg PO DAILY 05/31/17 Reported Vitamin D (Cholecalciferol (Vitamin D3)) 2,000 Unit Capsule 2,000 Unit PO BID 05/31/17 Reported Colace (Docusate Sodium) 100 Mg Capsule 100 Mg PO HS 03/05/17 Reported Nexium Capsule (Esomeprazole Magnesium) 40 Mg Capsule.dr 1 Cap PO DAILY 05/08/16 Reported Levothyroxine Sodium 75 Mcg Tablet 1 Tab PO DAILY 05/08/16 Reported Gabapentin (Gabapentin) 100 Mg Capsule 200 Mg PO HS 05/08/16 Reported IVETTE CHO MD Aug 24, 2021 09:54
[2021-08-24] MEDS ORDERED: ALBUTEROL SULFATE 2.5 MG/3 ML NEBU. NEB PRN (15:00)
[2021-08-24] MEDS ORDERED: LEVOTHYROXINE SODIUM INJ 50 MCG in NORMAL SALINE 5 ML IVP ONE (15:30)
--- NOTE | 2021-08-24 15:34 | CONS ---
DATE OF CONSULTATION: 08/24/2021 ATTENDING PHYSICIAN: Dr. Singh REASON FOR CONSULTATION: The patient is seen in pulmonary consultation at the request of Dr. Singh for abnormal chest x-ray, history of lung cancer. HISTORY OF PRESENT ILLNESS: The patient is an 81-year-old that was last seen in my office on January 26, 2020. She has chronic respiratory failure, lung cancer, status post chemoradiation dating back to 2016. She was followed by Dr. Hsieh. She has underlying COPD with emphysema and previous bronchiectasis, prior history of DVT. The patient presented in the Emergency Room with lack of appetite for 4 days, sluggish mentation, generalized weakness. She underwent a chest x-ray. I reviewed his chest x-ray, which reveals evidence of diffuse right lung opacity, which appeared to be slightly worse than previous x-ray. I was asked to see her in consultation. Unfortunately, I am unable to obtain much history from the patient herself. I spoke with Dr. Singh. She was sleepy, but arousable but she would fall asleep right away. She did not indicate any difficulty with shortness of air. REVIEW OF SYSTEMS: Unobtainable secondary to patient's condition. PAST MEDICAL HISTORY: 1. History of lung cancer, status post chemoradiation, diagnosed in 2016. 2. Coronary artery disease. 3. Chronic heart failure. 4. Chronic respiratory failure. 5. Hypertension. 6. Hyperlipidemia. 7. COPD. 8. Tobacco dependence, in remission. 9. Hysterectomy. 10. History of DVT. PAST SURGICAL HISTORY: Currently, she is not smoking. FAMILY HISTORY: Noncontributory. REVIEW OF SYSTEMS: Unobtainable secondary to patient's condition. CURRENT MEDICATIONS: List was reviewed. PHYSICAL EXAMINATION: GENERAL: The patient appeared to be cachectic. She appeared to be in no respiratory distress, on 5 liters of oxygen supplementation. VITAL SIGNS: Yesterday, she had a fever of 102.1. HEENT: Eyes: The sclerae were nonicteric. NECK: Jugular venous distention could not be assessed. LUNGS: Diminished breath sounds throughout both lung chávez. CARDIOVASCULAR: Regular rate and rhythm with S1, S2. No S3. ABDOMEN: Soft. EXTREMITIES: No clubbing, cyanosis. Muscle wasting. LABORATORY DATA: Serology for SARS-CoV-2 and influenza was negative. Toxicology screen was negative. UA was positive for wbc's. Electrolytes were noted. BUN 20. White count was elevated. Chest x-ray as indicated above. IMPRESSION: 1. Acute on chronic hypoxemic respiratory failure. 2. Acute exacerbation of chronic obstructive pulmonary disease. 3. Abnormal x-ray, possible progression of her malignancy, questionable pneumonia. 4. Acute encephalopathy, suspect multifactorial in nature. 5. Squamous cell carcinoma, status post chemoradiation, diagnosed in 2016. 6. Fever. 7. Sepsis. 8. Hypernatremia. 9. Severe protein malnutrition, present upon admission. 10. Coronary artery disease with previous stent placement. PLAN: 1. Case discussed with Dr. Singh. We will continue current support. 2. Dr. Singh has had previous discussions with the family. We both think that the patient in the past had been a DNR. We will clarify her code status. 3. Continue current support, I do not recommend any aggressive treatment. 4. Nutritional support. 5. Suspect the patient may not survive this admission, her albumin upon admission was 1.5. YAMILET/KELLY DR: Stanford TID: [id number]
--- NOTE | 2021-08-24 15:57 | NUR ---
SS following for discharge planning. SS reviewed pt chart and discussed with pt RN. Pt is from home with family and is currently requiring oxygen at five liters nasal canula. Pt has home oxygen at home with [facility] and has had previous services with [facility]. COVID19 negative[address] ordered. Pt on IV Zosyn. SS will continue to follow for discharge planning.
[2021-08-24] MEDS: IPRATRPIUM/ALBUTEROL 0.5/2.5MG 3 ML NEBU. NEB SCH ×2 (16:44→20:45)
[2021-08-24] MEDS: BUDESONIDE 0.5 MG/2 ML NEBU. NEB SCH (20:45)
[2021-08-24] MEDS: METOPROLOL SUCC 24HR ER 25 MG TAB.ER.24H. PO SCH (21:39)
[2021-08-24] MEDS: ATORVASTATIN CALCIUM 20 MG TABLET PO SCH (21:39)
[2021-08-24] MEDS: THEOPHYLLINE 12HR ER 300 MG TAB.ER.12H. PO SCH (21:41)
[2021-08-25] MEDS: PIPERACILLIN/TAZOBACTAM 2.25 GM in IV NORMAL SALINE 50ML 50 ML IV SCH ×4 (00:20→17:42)
[2021-08-25 03:05] VITALS: BP 119/49
[2021-08-25] MEDS ORDERED: LEVOTHYROXINE 75 MCG TABLET PO SCH (06:00)
[2021-08-25] MEDS: HEPARIN for SUB-Q USE 5,000 UNIT/ML VIAL. SQ SCH ×3 (06:25→21:43)
[2021-08-25 07:00] VITALS: BP 138/65
--- NOTE | 2021-08-25 07:38 | PDOC ---
[employer] PROGRESS NOTE Date of Service DOS: DATE: 08/25/21 TIME: 07:37 Chief Complaint Chief Complaint A/P: Acute respiratory failure with hypoxia - likely COPD exacerbation and pneumonia, possibly RUL around her mass. Will treat for both. rapid influenza and rapid SARS-CoV-2 negative. Acute encephalopathy - metabolic due to hypoxia, hypercalcemia, will continue to altered mental status. No focal neurologic deficits. Her daughter does note she has had significant cognitive decline over the last 3 years but no formal diagnosis of dementia Hypercalcemia - possibly due to dehydration/free water access issue vs hypercalcemia of malignancy. 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 No recent PET scan available RENETTA on CKD - likely vasomotor nephropathy Sepsis - due to pneumonia, likely aspiration, given empiric fluids and antibiotics Hypernatremia - Likely nutrititional, has not been eating Abnormal weight loss - severe protein calorie malnutrition. Has not been eating, likely cachexia from cancer and COPD H/o GOUT - check uric acid level GERD - on PPI HTN - BP low currently. On metoprolol at home, will hold for now Hypothyroidism - frequently does not take her doses, TSH low, likely needs dose reduction Prior DVT - off anticoagulation due to concern for falls CAD s/p stenting - on cardiac meds Osteoporosis. Previously noted likely chronic. COPD -severe end-stage on chronic 5 L of oxygen at home with significant emphysematous changes of lungs. Currently in acute exacerbation keep O2 between 89 to 92% and give aggressive nebulizer treatments. Pulmonology consulted. Severe protein malnutrition, present upon admission. FEN - NPO PPX - heparin CODE - DNR/DNI - Itzel and Shelton Barksdale and her surrogate decision makers Dispo - inpatient History of Present Illness History of Present Illness Ms Chauhan is a 81 year old female w/ PMHx sqaumous cell lung cancer of right lung, GOUT, GERD, HTN, hypothyroidism, prior DVT, CAD s/p stenting coming to ED via EMS for worsening dyspnea. She lives at home and recently 2 weeks ago her daughter noted she could no longer live alone she has not been eating well for the last 4 days more confused. She is confused but moving all 4 extremities will follow commands. Not oriented to location or month day or year. Head CT with no abnormalities, chest radiograph with significant right-sided changes. Labs with WBC 15.1, Hb 10.2, platelets 333, INR 1.3, NA 145, K4.6, BUN 21, CR 0.9, glucose 94, calcium 11.9, magnesium 1.7, albumin 2, LFTs otherwise within normal laboratory limits, troponin 0, ammonia negative, NT proBNP 1636, lactic acid 1.1, urine drug screen negative, urinalysis bland, rapid influenza negative, rapid COVID-19 negative She is not vaccinated against Covid her daughter notes this is because she thinks her mother is too high risk to have the COVID-19 vaccine Admitted for further care. Calcium back up to 11.2, albumin 1.5. D/w nephrology daughter would like treatment for hypercalcemia. Patient a bit more alert and awake today, very hard of hearing, confused, slight cough. Afebrile. Vitals/I&O Vitals/I&O: Vital Signs Date Time Temp Pulse Resp B/P (MAP) Pulse Ox O2 Delivery O2 Flow Rate FiO2 08/25/21 03:05 97.6 98 20 119/49 (72) 91 Nasal Cannula 97.6 08/24/21 20:44 3.0 I & O 08/24/21 08/24/21 08/25/21 15:00 23:00 07:00 Intake Total 50 ml Output Total 0 ml Balance 50 ml 0 ml Physical Exam General: mild distress, Other (Obtunded) Lungs: Clear Abdomen: Normal bowel sounds, Soft, No tenderness, No hepatosplenomegaly, No masses Extremities: No clubbing, No cyanosis, No edema, Normal pulses, No tenderness/swelling Skin: No rashes Labs Labs: Laboratory Tests Test 08/24/21 09:10 White Blood Count 9.1 x10^3/uL (4.0-11.0) Red Blood Count 2.91 x10^6/uL (3.50-5.40) Hemoglobin 8.3 g/dL (12.0-15.5) Hematocrit 26.6 % (36.0-47.0) Mean Corpuscular Volume 91 fL (79-100) Mean Corpuscular Hemoglobin 29 pg (25-35) Mean Corpuscular Hemoglobin Concent 31 g/dL (31-37) Red Cell Distribution Width 15.5 % (11.5-14.5) Platelet Count 244 x10^3/uL (140-400) Neutrophils (%) (Auto) 75 % (31-73) Lymphocytes (%) (Auto) 14 % (24-48) Monocytes (%) (Auto) 11 % (0-9) Eosinophils (%) (Auto) 0 % (0-3) Basophils (%) (Auto) 0 % (0-3) Neutrophils # (Auto) 6.8 x10^3/uL (1.8-7.7) Lymphocytes # (Auto) 1.2 x10^3/uL (1.0-4.8) Monocytes # (Auto) 1.0 x10^3/uL (0.0-1.1) Eosinophils # (Auto) 0.0 x10^3/uL (0.0-0.7) Basophils # (Auto) 0.0 x10^3/uL (0.0-0.2) Sodium Level 145 mmol/L (136-145) Potassium Level 3.6 mmol/L (3.5-5.1) Chloride Level 109 mmol/L (98-107) Carbon Dioxide Level 33 mmol/L (21-32) Anion Gap 3 (6-14) Blood Urea Nitrogen 20 mg/dL (7-20) Creatinine 0.9 mg/dL (0.6-1.0) Estimated GFR (Cockcroft-Gault) 59.8 Glucose Level 92 mg/dL (70-99) Calcium Level 10.9 mg/dL (8.5-10.1) Phosphorus Level 3.7 mg/dL (2.6-4.7) Albumin 1.5 g/dL (3.4-5.0) Thyroid Stimulating Hormone (TSH) 0.027 uIU/mL (0.358-3.74) Assessment and Plan Assessmemt and Plan Problems Medical Problems: (1) Failure to thrive Status: Acute (2) Sepsis Status: Acute Comment Review of Relevant I have reviewed the following items shirin (where applicable) has been applied. Medications: Current Medications Medications (Trade) Dose Ordered Sig/Morro Route PRN Reason Start Time Stop Time Status Last Admin Dose Admin Ringer's Solution 1,000 ml @ 75 mls/hr 1X ONCE IV 08/24/21 08:00 08/24/21 21:19 DC 08/24/21 09:42 Heparin Sodium (Porcine) (Heparin Sodium) 5,000 unit Q8HRS SQ 08/24/21 08:00 08/25/21 06:25 Piperacillin Sod/ Tazobactam Sod 2.25 gm/Sodium Chloride 50 ml @ 100 mls/hr Q6HRS IV 08/24/21 09:00 08/25/21 06:20 Levothyroxine Sodium 50 mcg/ Sodium Chloride 5 ml @ 100 mls/hr 1X ONCE IVP 08/24/21 15:30 08/24/21 15:34 DC 08/24/21 15:28 Albuterol/ Ipratropium (Duoneb) 3 ml RTQID NEB 08/24/21 16:00 08/24/21 20:45 Budesonide (Pulmicort) 0.5 mg RTBID NEB 08/24/21 20:00 08/24/21 20:45 Atorvastatin Calcium (Lipitor) 20 mg QHS PO 08/24/21 21:00 08/24/21 21:39 Metoprolol Succinate (Toprol Xl) 25 mg BID PO 08/24/21 21:00 08/24/21 21:39 Theophylline (Theodur) 150 mg BID PO 08/24/21 21:00 08/24/21 21:41 Justifications for Admission Other Justification DORA WOODSON MD Aug 25, 2021 07:38
[2021-08-25] MEDS: IPRATRPIUM/ALBUTEROL 0.5/2.5MG 3 ML NEBU. NEB SCH ×4 (07:45→18:14)
[2021-08-25] MEDS: BUDESONIDE 0.5 MG/2 ML NEBU. NEB SCH ×2 (07:45→18:14)
[2021-08-25 08:09] LABS: ALBUMIN 1.5 g/dL (3.4-5.0); CALCIUM 11.2 mg/dL (8.5-10.1); PHOSPHORUS 2.9 mg/dL (2.6-4.7); POTASSIUM 3.4 mmol/L (3.5-5.1)
[2021-08-25] MEDS ORDERED: CHOLECALCIFEROL (VITAMIN D3) 1,000 UNIT TABLET PO SCH (09:00)
--- NOTE | 2021-08-25 09:11 | PDOC2 ---
CONSULT Date of Consult Date of Consult DATE: 08/25/21 TIME: 08:58 Reason for Consult Reason for Consult: HyperCalcemia Referring Physician Referring Physician: Dr. Singh Source Source: Chart review History of Present Illness Reason for Visit: Patient is a 81 year old CF w/ PMHx sqaumous cell right lung cancer,Gout, GERD, HTN,came to ED via EMS for worsening dyspnea. She lives at home and recently 2 weeks ago her daughter noted she could no longer live alone, she has not been eating well and has been more confused. No reported history of N/V/D. No abdominal pain . No urinary complaints reported . No F/C Per Nursing she is Incontinent and has briefs on- but it has been dry since her hospitalization History Obtained from Chart review due to AMS . She follows commands but Not oriented to location or month day or year. She is not vaccinated against Covid her daughter notes this is because she thinks her mother is too high risk to have the COVID-19 vaccine Past Medical History Cardiovascular: CAD, CHF, HTN, Hyperlipidemia Pulmonary: COPD GI: Diverticulosis, GERD Heme/Onc: Cancer Psych: Depression Musculoskeletal: low back pain, Osteoarthritis Renal/: UTI, Other Endocrine: Osteoporosis Past Surgical History Past Surgical History: Hysterectomy, Other Family History Family History: No Significant Social History No ALCOHOL: none Drugs: None Lives: Alone Current Problem List Problem List Problems Medical Problems: (1) Failure to thrive Status: Acute (2) Sepsis Status: Acute Current Medications Current Medications Current Medications Sodium Chloride 1,000 ml @ 1,000 mls/hr 1X ONCE IV Last administered on 08/23/21at 21:53; Start 08/23/21 at 22:00; Stop 08/23/21 at 22:59; Status DC Acetaminophen (Tylenol) 650 mg 1X ONCE PEG ; Start 08/23/21 at 22:00; Stop 08/23/21 at 22:01; Status DC Piperacillin Sod/ Tazobactam Sod 4.5 gm/Sodium Chloride 100 ml @ 200 mls/hr 1X ONCE IV ; Start 08/23/21 at 23:30; Stop 08/23/21 at 23:59; Status Cancel Clindamycin Phosphate 50 ml @ 100 mls/hr 1X ONCE IV Last administered on 08/23/21at 23:51; Start 08/23/21 at 23:30; Stop 08/23/21 at 23:59; Status DC Piperacillin Sod/ Tazobactam Sod 3.375 gm/Sodium Chloride 50 ml @ 100 mls/hr 1X ONCE IV Last administered on 08/23/21at 23:41; Start 08/23/21 at 23:45; Stop 08/24/21 at 00:14; Status DC Ringer's Solution 1,000 ml @ 75 mls/hr 1X ONCE IV Last administered on 08/24/21at 09:42; Start 08/24/21 at 08:00; Stop 08/24/21 at 21:19; Status DC Acetaminophen (Tylenol Supp) 650 mg PRN Q6HRS PRN NC MILD PAIN / TEMP > 100.3'F; Start 08/24/21 at 08:00 Bisacodyl (Dulcolax Supp) 10 mg PRN DAILY PRN NC CONSTIPATION; Start 08/24/21 at 08:00 Ondansetron HCl (Zofran) 4 mg PRN Q4HRS PRN IVP NAUSEA/VOMITING; Start 08/24/21 at 08:00 Ondansetron HCl (Zofran Odt) 4 mg PRN Q4HRS PRN PO NAUSEA; Start 08/24/21 at 08:00 Heparin Sodium (Porcine) (Heparin Sodium) 5,000 unit Q8HRS SQ Last administered on 08/25/21at 06:25; Start 08/24/21 at 08:00 Piperacillin Sod/ Tazobactam Sod (Zosyn Per Pharmacy) 1 each PRN DAILY PRN MC SEE COMMENTS; Start 08/24/21 at 08:00 Piperacillin Sod/ Tazobactam Sod 2.25 gm/Sodium Chloride 50 ml @ 100 mls/hr Q6HRS IV Last administered on 08/25/21at 06:20; Start 08/24/21 at 09:00 Levothyroxine Sodium 50 mcg/ Sodium Chloride 5 ml @ 100 mls/hr 1X ONCE IVP Last administered on 08/24/21at 15:28; Start 08/24/21 at 15:30; Stop 08/24/21 at 15:34; Status DC Albuterol Sulfate (Ventolin Neb Soln) 2.5 mg PRN Q4HRS PRN NEB SHORTNESS OF BREATH; Start 08/24/21 at 15:00 Albuterol/ Ipratropium (Duoneb) 3 ml RTQID NEB Last administered on 08/25/21at 07:45; Start 08/24/21 at 16:00 Budesonide (Pulmicort) 0.5 mg RTBID NEB Last administered on 08/25/21at 07:45; Start 08/24/21 at 20:00 Atorvastatin Calcium (Lipitor) 20 mg QHS PO Last administered on 08/24/21at 21:39; Start 08/24/21 at 21:00 Clopidogrel Bisulfate (Plavix) 75 mg DAILYWBKFT PO ; Start 08/25/21 at 08:00 Isosorbide Mononitrate (Imdur) 30 mg DAILY PO ; Start 08/25/21 at 09:00 Levothyroxine Sodium (Synthroid) 75 mcg DAILY06 PO ; Start 08/25/21 at 06:00 Metoprolol Succinate (Toprol Xl) 25 mg BID PO Last administered on 08/24/21at 21:39; Start 08/24/21 at 21:00 Mirtazapine (Remeron) 15 mg DAILY PO ; Start 08/25/21 at 09:00 Vitamin D (Vitamin D3) 2,000 unit DAILY PO ; Start 08/25/21 at 09:00 Pantoprazole Sodium (Protonix) 40 mg DAILYAC PO ; Start 08/25/21 at 07:30 Theophylline (Theodur) 150 mg BID PO Last administered on 08/24/21at 21:41; Start 08/24/21 at 21:00 Active Scripts Active Atorvastatin Calcium 20 Mg Tablet 20 Mg PO QHS Acetaminophen 500 Mg Tablet 500 Mg PO PRN Q6HRS PRN 30 Days Clopidogrel (Clopidogrel Bisulfate) 75 Mg Tablet 75 Mg PO DAILYWBKFT 30 Days Reported Metoprolol Succinate ( Xl ) (Metoprolol Succinate) 25 Mg Tab.er.24h 1 Tab PO BID Clonidine Hcl 0.1 Mg Tablet 0.1 Mg PO DAILY PRN Melo-24 (Theophylline Anhydrous) 400 Mg Cap.er.24h 1 Cap PO DAILY 30 Days Isosorbide Mononitrate Er (Isosorbide Mononitrate) 30 Mg Tab.er.24h 1 Tab PO DAILY Potassium Chloride (Potassium Chloride) 10 Meq Tab.sr.24h 10 Meq PO DAILY Mirtazapine 15 Mg Tablet 15 Mg PO DAILY Super B Maxi Complex Caplet (Vitamin B Complex/Folic Acid) 0.4 Mg Tablet 0.4 Mg PO DAILY Ferrous Sulfate 325 Mg Tablet 325 Mg PO DAILY Vitamin D (Cholecalciferol (Vitamin D3)) 2,000 Unit Capsule 2,000 Unit PO BID Colace (Docusate Sodium) 100 Mg Capsule 100 Mg PO HS Nexium Capsule (Esomeprazole Magnesium) 40 Mg Capsule.dr 1 Cap PO DAILY Levothyroxine Sodium 75 Mcg Tablet 1 Tab PO DAILY Gabapentin (Gabapentin) 100 Mg Capsule 200 Mg PO HS Allergies Allergies: Coded Allergies: aspirin (Verified Allergy, Intermediate, 05/08/16) codeine (Verified Allergy, Intermediate, 05/08/16) methocarbamol (Verified Allergy, Intermediate, 05/08/16) morphine (Verified Allergy, Intermediate, 05/08/16) Morphine Sulfate ER 15 mg oxycodone (Verified Allergy, Intermediate, 05/08/16) sulfamethoxazole (Verified Allergy, Intermediate, 05/08/16) tramadol (Verified Allergy, Intermediate, 05/08/16) trimethoprim (Verified Allergy, Intermediate, 05/08/16) ibuprofen (Verified Allergy, Mild, 04/22/20) ROS Review of System Asper HPI, rest of the ROS is negative. Unable to Obtain details from patient 2/2 above Physical Exam Physical Exam General NAD , cachetic, Ill looking HEEN anicteric, OM Dry , On o2 by NC Neck supple Lungs CTA, Non labored, CVS1S2 Abd Soft, NT , scaphoid Ext No LE edema No goodson Derm No Rash Neuro No gross deficit, Confused ? baseline Psych Unable to Obtain Vital Signs Vital Signs Date Time Temp Pulse Resp B/P (MAP) Pulse Ox O2 Delivery O2 Flow Rate FiO2 08/25/21 07:46 Nasal Cannula 3.0 08/25/21 07:00 98.1 100 20 138/65 (89) 91 98.1 Assessment & Plan HyperCalcemia - Suspected etiology ? Dehydration / Hx of Sq Cell Lung Cancer Supportive care, IVF, Dw Nursing, Monitor Resp Status , strict I/O(Ordered Goodson ) , Calcitonin 2 doses today , Re-evaluate in Morning. DC VitD . NI ordered - Labs Pending Anemia decreasing Hgb ,, monitor , Defer to Hem/onc , CKD stage 3A - Creatinine Normal Hypernatremia- mild,Clinically appears dehydrated . IVF as above, Discussed with Nursing HypoKalemia - mild Acute Resp Failure - CXr abnormal- reported CW Infectious/Inflamm Process . Patient Unvaccinated against COVID . 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 Serum Alb <2.0 H/o GOUT HTN - BP low On metoprolol at home, held Hypothyroidism - frequently misses med CAD s/p stenting Osteoporosis. chronic. COPD -severe end-stage on chronic 5 L of oxygen at home with significant emphysematous changes of lungs. Severe protein malnutrition, present upon admission. Labs Labs Laboratory Tests Test 08/23/21 21:42 08/23/21 21:47 08/23/21 23:40 08/24/21 09:10 White Blood Count 15.1 x10^3/uL (4.0-11.0) 9.1 x10^3/uL (4.0-11.0) Red Blood Count 3.65 x10^6/uL (3.50-5.40) 2.91 x10^6/uL (3.50-5.40) Hemoglobin 10.2 g/dL (12.0-15.5) 8.3 g/dL (12.0-15.5) Hematocrit 33.4 % (36.0-47.0) 26.6 % (36.0-47.0) Mean Corpuscular Volume 91 fL (79-100) 91 fL (79-100) Mean Corpuscular Hemoglobin 28 pg (25-35) 29 pg (25-35) Mean Corpuscular Hemoglobin Concent 31 g/dL (31-37) 31 g/dL (31-37) Red Cell Distribution Width 15.7 % (11.5-14.5) 15.5 % (11.5-14.5) Platelet Count 333 x10^3/uL (140-400) 244 x10^3/uL (140-400) Neutrophils (%) (Auto) 90 % (31-73) 75 % (31-73) Lymphocytes (%) (Auto) 4 % (24-48) 14 % (24-48) Monocytes (%) (Auto) 6 % (0-9) 11 % (0-9) Eosinophils (%) (Auto) 0 % (0-3) 0 % (0-3) Basophils (%) (Auto) 1 % (0-3) 0 % (0-3) Neutrophils # (Auto) 13.6 x10^3/uL (1.8-7.7) 6.8 x10^3/uL (1.8-7.7) Lymphocytes # (Auto) 0.5 x10^3/uL (1.0-4.8) 1.2 x10^3/uL (1.0-4.8) Monocytes # (Auto) 0.9 x10^3/uL (0.0-1.1) 1.0 x10^3/uL (0.0-1.1) Eosinophils # (Auto) 0.0 x10^3/uL (0.0-0.7) 0.0 x10^3/uL (0.0-0.7) Basophils # (Auto) 0.1 x10^3/uL (0.0-0.2) 0.0 x10^3/uL (0.0-0.2) Segmented Neutrophils % 89 % (35-66) Band Neutrophils % 2 % (0-9) Lymphocytes % 4 % (24-48) Monocytes % 5 % (0-10) Toxic Granulation Slight Platelet Estimate Adequate (ADEQUATE) Hypochromasia Slight Basophilic Stippling Present Anisocytosis Slight Prothrombin Time 15.8 SEC (11.7-14.0) Prothromb Time International Ratio 1.3 (0.8-1.1) Activated Partial Thromboplast Time 33 SEC (24-38) Sodium Level 145 mmol/L (136-145) 145 mmol/L (136-145) Potassium Level 4.6 mmol/L (3.5-5.1) 3.6 mmol/L (3.5-5.1) Chloride Level 105 mmol/L (98-107) 109 mmol/L (98-107) Carbon Dioxide Level 32 mmol/L (21-32) 33 mmol/L (21-32) Anion Gap 8 (6-14) 3 (6-14) Blood Urea Nitrogen 21 mg/dL (7-20) 20 mg/dL (7-20) Creatinine 0.9 mg/dL (0.6-1.0) 0.9 mg/dL (0.6-1.0) Estimated GFR (Cockcroft-Gault) 59.8 59.8 Glucose Level 94 mg/dL (70-99) 92 mg/dL (70-99) Lactic Acid Level 1.1 mmol/L (0.4-2.0) Calcium Level 11.9 mg/dL (8.5-10.1) 10.9 mg/dL (8.5-10.1) Magnesium Level 1.7 mg/dL (1.8-2.4) Total Bilirubin 0.3 mg/dL (0.2-1.0) Direct Bilirubin 0.1 mg/dL (0.0-0.2) Aspartate Amino Transf (AST/SGOT) 28 U/L (15-37) Alanine Aminotransferase (ALT/SGPT) 14 U/L (14-59) Alkaline Phosphatase 77 U/L (46-116) Ammonia < 10 mcmol/L (11-34) Creatine Kinase 115 U/L (26-192) Troponin I Quantitative < 0.017 ng/mL (0.000-0.055) ME-Pvz-W-Type Natriuretic Peptide 1636 pg/mL (0-449) Total Protein 6.6 g/dL (6.4-8.2) Albumin 2.0 g/dL (3.4-5.0) 1.5 g/dL (3.4-5.0) Salicylates Level 1.7 mg/dL (2.8-20.0) Salicylate Last Dose Date Unknown Salicylate Last Dose Time Unknown Acetaminophen Level < 2 mcg/ml (10-30) Acetaminophen Last Dose Date Unknown Acetaminophen Last Dose Time [place] Influenza Type A Antigen Negative (NEGATIVE) Influenza Type B Antigen Negative (NEGATIVE) SARS-CoV-2 RNA (CESILIA) Negative (Negative) SARS-CoV-2 Antigen (Rapid) Negative (NEGATIVE) Urine Collection Type U cath Urine Color Yellow Urine Clarity Clear Urine pH 5.5 (<5.0-8.0) Urine Specific [place] 1.015 (1.000-1.030) Urine Protein 30 mg/dL (NEG-TRACE) Urine Glucose (UA) Negative mg/dL (NEG) Urine Ketones (Stick) 15 mg/dL (NEG) Urine Blood Negative (NEG) Urine Nitrite Negative (NEG) Urine Bilirubin Negative (NEG) Urine Urobilinogen Dipstick 0.2 mg/dL (0.2 mg/dL) Urine Leukocyte Esterase Negative (NEG) Urine RBC Rare /HPF (0-2) Urine WBC Rare /HPF (0-4) Urine Squamous Epithelial Cells Few /LPF Urine Amorphous Sediment Present /HPF Urine Bacteria 0 /HPF (0-FEW) Urine Mucus Slight /LPF Urine Opiates Screen Neg (NEG) Urine Methadone Screen Neg (NEG) Urine Barbiturates Neg (NEG) Urine Phencyclidine Screen Neg (NEG) Urine Amphetamine/Methamphetamine Neg (NEG) Urine Benzodiazepines Screen Neg (NEG) Urine Cocaine Screen Neg (NEG) Urine Cannabinoids Screen Neg (NEG) Urine Ethyl Alcohol Neg (NEG) Phosphorus Level 3.7 mg/dL (2.6-4.7) Thyroid Stimulating Hormone (TSH) 0.027 uIU/mL (0.358-3.74) Test 08/25/21 06:50 Sodium Level 149 mmol/L (136-145) Potassium Level 3.4 mmol/L (3.5-5.1) Chloride Level 109 mmol/L (98-107) Carbon Dioxide Level 32 mmol/L (21-32) Anion Gap 8 (6-14) Blood Urea Nitrogen 17 mg/dL (7-20) Creatinine 1.0 mg/dL (0.6-1.0) Estimated GFR (Cockcroft-Gault) 53.0 Glucose Level 59 mg/dL (70-99) Calcium Level 11.2 mg/dL (8.5-10.1) Phosphorus Level 2.9 mg/dL (2.6-4.7) Albumin 1.5 g/dL (3.4-5.0) Laboratory Tests Test 08/24/21 09:10 08/25/21 06:50 White Blood Count 9.1 x10^3/uL (4.0-11.0) Red Blood Count 2.91 x10^6/uL (3.50-5.40) Hemoglobin 8.3 g/dL (12.0-15.5) Hematocrit 26.6 % (36.0-47.0) Mean Corpuscular Volume 91 fL (79-100) Mean Corpuscular Hemoglobin 29 pg (25-35) Mean Corpuscular Hemoglobin Concent 31 g/dL (31-37) Red Cell Distribution Width 15.5 % (11.5-14.5) Platelet Count 244 x10^3/uL (140-400) Neutrophils (%) (Auto) 75 % (31-73) Lymphocytes (%) (Auto) 14 % (24-48) Monocytes (%) (Auto) 11 % (0-9) Eosinophils (%) (Auto) 0 % (0-3) Basophils (%) (Auto) 0 % (0-3) Neutrophils # (Auto) 6.8 x10^3/uL (1.8-7.7) Lymphocytes # (Auto) 1.2 x10^3/uL (1.0-4.8) Monocytes # (Auto) 1.0 x10^3/uL (0.0-1.1) Eosinophils # (Auto) 0.0 x10^3/uL (0.0-0.7) Basophils # (Auto) 0.0 x10^3/uL (0.0-0.2) Sodium Level 145 mmol/L (136-145) 149 mmol/L (136-145) Potassium Level 3.6 mmol/L (3.5-5.1) 3.4 mmol/L (3.5-5.1) Chloride Level 109 mmol/L (98-107) 109 mmol/L (98-107) Carbon Dioxide Level 33 mmol/L (21-32) 32 mmol/L (21-32) Anion Gap 3 (6-14) 8 (6-14) Blood Urea Nitrogen 20 mg/dL (7-20) 17 mg/dL (7-20) Creatinine 0.9 mg/dL (0.6-1.0) 1.0 mg/dL (0.6-1.0) Estimated GFR (Cockcroft-Gault) 59.8 53.0 Glucose Level 92 mg/dL (70-99) 59 mg/dL (70-99) Calcium Level 10.9 mg/dL (8.5-10.1) 11.2 mg/dL (8.5-10.1) Phosphorus Level 3.7 mg/dL (2.6-4.7) 2.9 mg/dL (2.6-4.7) Albumin 1.5 g/dL (3.4-5.0) 1.5 g/dL (3.4-5.0) Thyroid Stimulating Hormone (TSH) 0.027 uIU/mL (0.358-3.74) Review All relevant outside records, renal labs, imaging studies, telemetry/EKG's were reviewed. Images Images Lungs: Elevation of the right hemidiaphragm per Low right lung volume. Diffuse right lung heterogeneous opacities. Pleura: No pleural effusion or pneumothorax. Heart and Mediastinum: The cardiomediastinal silhouette is normal. Atherosclerotic thoracic aorta. IMPRESSION: Diffuse right lung opacities, concerning for an infectious/inflammatory process.. JOSE R CAMEJO MD Aug 25, 2021 09:11
[2021-08-25] MEDS: PANTOPRAZOLE 40 MG TABLET.DR. PO SCH (09:12)
[2021-08-25] MEDS: MIRTAZAPINE 15 MG TABLET PO SCH (09:12)
[2021-08-25] MEDS: THEOPHYLLINE 12HR ER 300 MG TAB.ER.12H. PO SCH ×2 (09:12→21:00)
[2021-08-25] MEDS: CLOPIDOGREL BISULFATE 75 MG TABLET PO SCH (09:12)
[2021-08-25] MEDS: ISOSORBIDE MONONITRATE ER 30 MG TAB.ER.24H PO SCH (09:12)
[2021-08-25] MEDS: METOPROLOL SUCC 24HR ER 25 MG TAB.ER.24H. PO SCH ×2 (09:13→21:00)
--- NOTE | 2021-08-25 09:23 | PDOC ---
PULMONARY PROGRESS NOTES DATE: 08/25/21 TIME: 09:22 Subjective Patient more awake today, hard of hearing, no shortness of breath noted Daughter at the bedside Vitals Vital Signs Date Time Temp Pulse Resp B/P (MAP) Pulse Ox O2 Delivery O2 Flow Rate FiO2 08/25/21 09:13 100 138/65 08/25/21 07:46 Nasal Cannula 3.0 08/25/21 07:00 98.1 20 91 98.1 ROS: No Nausea, No Chest Pain, No Abdominal Pain, No Increase Cough General: Alert, Confused Lungs: Clear Cardiovascular: S1 Abdomen: Soft Neuro Exam: Alert Extremities: No Edema Skin: Warm Labs Laboratory Tests Test 08/23/21 21:42 08/23/21 21:47 08/23/21 23:40 08/24/21 09:10 White Blood Count 15.1 x10^3/uL (4.0-11.0) 9.1 x10^3/uL (4.0-11.0) Red Blood Count 3.65 x10^6/uL (3.50-5.40) 2.91 x10^6/uL (3.50-5.40) Hemoglobin 10.2 g/dL (12.0-15.5) 8.3 g/dL (12.0-15.5) Hematocrit 33.4 % (36.0-47.0) 26.6 % (36.0-47.0) Mean Corpuscular Volume 91 fL (79-100) 91 fL (79-100) Mean Corpuscular Hemoglobin 28 pg (25-35) 29 pg (25-35) Mean Corpuscular Hemoglobin Concent 31 g/dL (31-37) 31 g/dL (31-37) Red Cell Distribution Width 15.7 % (11.5-14.5) 15.5 % (11.5-14.5) Platelet Count 333 x10^3/uL (140-400) 244 x10^3/uL (140-400) Neutrophils (%) (Auto) 90 % (31-73) 75 % (31-73) Lymphocytes (%) (Auto) 4 % (24-48) 14 % (24-48) Monocytes (%) (Auto) 6 % (0-9) 11 % (0-9) Eosinophils (%) (Auto) 0 % (0-3) 0 % (0-3) Basophils (%) (Auto) 1 % (0-3) 0 % (0-3) Neutrophils # (Auto) 13.6 x10^3/uL (1.8-7.7) 6.8 x10^3/uL (1.8-7.7) Lymphocytes # (Auto) 0.5 x10^3/uL (1.0-4.8) 1.2 x10^3/uL (1.0-4.8) Monocytes # (Auto) 0.9 x10^3/uL (0.0-1.1) 1.0 x10^3/uL (0.0-1.1) Eosinophils # (Auto) 0.0 x10^3/uL (0.0-0.7) 0.0 x10^3/uL (0.0-0.7) Basophils # (Auto) 0.1 x10^3/uL (0.0-0.2) 0.0 x10^3/uL (0.0-0.2) Segmented Neutrophils % 89 % (35-66) Band Neutrophils % 2 % (0-9) Lymphocytes % 4 % (24-48) Monocytes % 5 % (0-10) Toxic Granulation Slight Platelet Estimate Adequate (ADEQUATE) Hypochromasia Slight Basophilic Stippling Present Anisocytosis Slight Prothrombin Time 15.8 SEC (11.7-14.0) Prothromb Time International Ratio 1.3 (0.8-1.1) Activated Partial Thromboplast Time 33 SEC (24-38) Sodium Level 145 mmol/L (136-145) 145 mmol/L (136-145) Potassium Level 4.6 mmol/L (3.5-5.1) 3.6 mmol/L (3.5-5.1) Chloride Level 105 mmol/L (98-107) 109 mmol/L (98-107) Carbon Dioxide Level 32 mmol/L (21-32) 33 mmol/L (21-32) Anion Gap 8 (6-14) 3 (6-14) Blood Urea Nitrogen 21 mg/dL (7-20) 20 mg/dL (7-20) Creatinine 0.9 mg/dL (0.6-1.0) 0.9 mg/dL (0.6-1.0) Estimated GFR (Cockcroft-Gault) 59.8 59.8 Glucose Level 94 mg/dL (70-99) 92 mg/dL (70-99) Lactic Acid Level 1.1 mmol/L (0.4-2.0) Calcium Level 11.9 mg/dL (8.5-10.1) 10.9 mg/dL (8.5-10.1) Magnesium Level 1.7 mg/dL (1.8-2.4) Total Bilirubin 0.3 mg/dL (0.2-1.0) Direct Bilirubin 0.1 mg/dL (0.0-0.2) Aspartate Amino Transf (AST/SGOT) 28 U/L (15-37) Alanine Aminotransferase (ALT/SGPT) 14 U/L (14-59) Alkaline Phosphatase 77 U/L (46-116) Ammonia < 10 mcmol/L (11-34) Creatine Kinase 115 U/L (26-192) Troponin I Quantitative < 0.017 ng/mL (0.000-0.055) BQ-Lsr-T-Type Natriuretic Peptide 1636 pg/mL (0-449) Total Protein 6.6 g/dL (6.4-8.2) Albumin 2.0 g/dL (3.4-5.0) 1.5 g/dL (3.4-5.0) Salicylates Level 1.7 mg/dL (2.8-20.0) Salicylate Last Dose Date Unknown Salicylate Last Dose Time Unknown Acetaminophen Level < 2 mcg/ml (10-30) Acetaminophen Last Dose Date Unknown [facility]amin[facility] Influenza Type A Antigen Negative (NEGATIVE) Influenza Type B Antigen Negative (NEGATIVE) SARS-CoV-2 RNA (CESILIA) Negative (Negative) SARS-CoV-2 Antigen (Rapid) Negative (NEGATIVE) Urine Collection Type U cath Urine Color Yellow Urine Clarity Clear Urine pH 5.5 (<5.0-8.0) Urine Specific [place] 1.015 (1.000-1.030) Urine Protein 30 mg/dL (NEG-TRACE) Urine Glucose (UA) Negative mg/dL (NEG) Urine Ketones (Stick) 15 mg/dL (NEG) Urine Blood Negative (NEG) Urine Nitrite Negative (NEG) Urine Bilirubin Negative (NEG) Urine Urobilinogen Dipstick 0.2 mg/dL (0.2 mg/dL) Urine Leukocyte Esterase Negative (NEG) Urine RBC Rare /HPF (0-2) Urine WBC Rare /HPF (0-4) Urine Squamous Epithelial Cells Few /LPF Urine Amorphous Sediment Present /HPF Urine Bacteria 0 /HPF (0-FEW) Urine Mucus Slight /LPF Urine Opiates Screen Neg (NEG) Urine Methadone Screen Neg (NEG) Urine Barbiturates Neg (NEG) Urine Phencyclidine Screen Neg (NEG) Urine Amphetamine/Methamphetamine Neg (NEG) Urine Benzodiazepines Screen Neg (NEG) Urine Cocaine Screen Neg (NEG) Urine Cannabinoids Screen Neg (NEG) Urine Ethyl Alcohol Neg (NEG) Phosphorus Level 3.7 mg/dL (2.6-4.7) Thyroid Stimulating Hormone (TSH) 0.027 uIU/mL (0.358-3.74) Test 08/25/21 06:50 Sodium Level 149 mmol/L (136-145) Potassium Level 3.4 mmol/L (3.5-5.1) Chloride Level 109 mmol/L (98-107) Carbon Dioxide Level 32 mmol/L (21-32) Anion Gap 8 (6-14) Blood Urea Nitrogen 17 mg/dL (7-20) Creatinine 1.0 mg/dL (0.6-1.0) Estimated GFR (Cockcroft-Gault) 53.0 Glucose Level 59 mg/dL (70-99) Calcium Level 11.2 mg/dL (8.5-10.1) Phosphorus Level 2.9 mg/dL (2.6-4.7) Albumin 1.5 g/dL (3.4-5.0) Laboratory Tests Test 08/25/21 06:50 Sodium Level 149 mmol/L (136-145) Potassium Level 3.4 mmol/L (3.5-5.1) Chloride Level 109 mmol/L (98-107) Carbon Dioxide Level 32 mmol/L (21-32) Anion Gap 8 (6-14) Blood Urea Nitrogen 17 mg/dL (7-20) Creatinine 1.0 mg/dL (0.6-1.0) Estimated GFR (Cockcroft-Gault) 53.0 Glucose Level 59 mg/dL (70-99) Calcium Level 11.2 mg/dL (8.5-10.1) Phosphorus Level 2.9 mg/dL (2.6-4.7) Albumin 1.5 g/dL (3.4-5.0) Medications Active Scripts Medications Dose Route/Sig Max Daily Dose Days Date Category Prednisone 20 Mg Tablet 40 Mg PO DAILY 3 05/04/21 Rx Atorvastatin Calcium 20 Mg Tablet 20 Mg PO QHS 05/04/21 Rx Metoprolol Succinate ( Xl ) (Metoprolol Succinate) 25 Mg Tab.er.24h 1 Tab PO BID 04/29/21 Reported Clonidine Hcl 0.1 Mg Tablet 0.1 Mg PO DAILY PRN 04/24/21 Reported Melo-24 (Theophylline Anhydrous) 400 Mg Cap.er.24h 1 Cap PO DAILY 30 04/24/21 Reported Isosorbide Mononitrate Er (Isosorbide Mononitrate) 30 Mg Tab.er.24h 1 Tab PO DAILY 04/24/21 Reported Potassium Chloride (Potassium Chloride) 10 Meq Tab.sr.24h 10 Meq PO DAILY 04/24/21 Reported Acetaminophen 500 Mg Tablet 500 Mg PO PRN Q6HRS PRN 30 04/27/20 Rx Mirtazapine 15 Mg Tablet 15 Mg PO DAILY 04/21/20 Reported Clopidogrel (Clopidogrel Bisulfate) 75 Mg Tablet 75 Mg PO DAILYWBKFT 30 04/25/19 Rx Super B Maxi Complex Caplet (Vitamin B Complex/Folic Acid) 0.4 Mg Tablet 0.4 Mg PO DAILY 04/22/19 Reported Ferrous Sulfate 325 Mg Tablet 325 Mg PO DAILY 05/31/17 Reported Vitamin D (Cholecalciferol (Vitamin D3)) 2,000 Unit Capsule 2,000 Unit PO BID 05/31/17 Reported Colace (Docusate Sodium) 100 Mg Capsule 100 Mg PO HS 03/05/17 Reported Nexium Capsule (Esomeprazole Magnesium) 40 Mg Capsule.dr 1 Cap PO DAILY 05/08/16 Reported Levothyroxine Sodium 75 Mcg Tablet 1 Tab PO DAILY 05/08/16 Reported Gabapentin (Gabapentin) 100 Mg Capsule 200 Mg PO HS 05/08/16 Reported Impression . IMPRESSION: 1. Acute on chronic hypoxemic respiratory failure. 2. Acute exacerbation of chronic obstructive pulmonary disease. 3. Abnormal x-ray, possible progression of her malignancy, questionable pneumonia. 4. Acute encephalopathy, suspect multifactorial in nature. 5. Squamous cell carcinoma, status post chemoradiation, diagnosed in 2016. 6. Fever. 7. Sepsis. 8. Hypernatremia. 9. Severe protein malnutrition, present upon admission. 10. Coronary artery disease with previous stent placement. 11. Hypercalcemia Plan . Updated 08/25 Discussed with daughter at the bedside Hypercalcemia being treated by nephrology Discussed with Dr. Singh, medical oncology consulted Patient DNR PLAN: 1. Case discussed with Dr. Singh. We will continue current support. 2. Dr. Singh has had previous discussions with the family. We both think that the patient in the past had been a DNR. We will clarify her code status. 3. Continue current support, I do not recommend any aggressive treatment. 4. Nutritional support. 5. Suspect the patient may not survive this admission, her albumin upon admission was 1.5. IVETTE CHO MD Aug 25, 2021 09:22
[2021-08-25] MEDS: ONDANSETRON PF 4 MG/2 ML VIAL. IVP PRN (09:29)
[2021-08-25] MEDS: IV NORMAL SALINE 1000ML BAG 1,000 ML IV SCH ×2 (10:18→22:01)
[2021-08-25] MEDS: CALCITONIN,SALMON 400 UNIT/2 ML VIAL. SQ SCH ×2 (10:18→21:38)
[2021-08-25 11:00] VITALS: BP 126/66
[2021-08-25] MEDS ORDERED: PROCHLORPERAZINE 10 MG/2 ML VIAL. IV PRN (12:15)
--- NOTE | 2021-08-25 14:19 | NUR ---
SS following up with discharge planning. SS reviewed pt chart and discussed with pt RN. Pt is currently requiring oxygen at three liters nasal canula. Pt has home oxygen. Pt on IV Zosyn. Dr. Sanford consulted. DNR. PT/OT recommended nursing home unit. Pt's family declining nursing home unit at this time. Pt was previously on services with [facility], ; fax [phone]. Referral phoned and faxed to [facility]. SS will continue to follow for discharge planning.
--- NOTE | 2021-08-25 14:44 | PDOC2 ---
CONSULT Date of Consult Date of Consult DATE: 08/25/21 TIME: 14:41 Reason for Consult Reason for Consult: Hypercalcemia and history of squamous cell lung cancer Referring Physician Referring Physician: Dr. Singh Identification/Chief Complaint Chief Complaint Confusion Source Source: Chart review History of Present Illness Reason for Visit: Jennifer Chauhan is an 81-year-old female who has been admitted to the hospital after presenting with confusion. Patient has a history of squamous cell lung cancer. This was diagnosed in 2015. She received concurrent chemoradiotherapy with carboplatin and paclitaxel administered weekly at the time. This afforded disease control. Her most recent CT chest in February 2021 did not show any evidence of disease progression or recurrence. Stable postradiation changes were noted. She has not been admitted to the hospital with confusion. Further evaluation has shown severe hypercalcemia. Calcium level has improved since her hospitalization. PTH related peptide and additional hypercalcemia work-up that was requested is pending at this time. Medical oncology consultation has been requested to the patient's known diagnosis of squamous cell carcinoma. Patient is accompanied by her family today. Per family, she has had a decline in her health over the last 2 years. She typically requires daily supervision. Her activity level over the last 2 to 3 months has mostly included lying in bed, resting in a chair and walking to the bathroom. She requires assistance for all activities of daily living. They have also noticed some memory changes recently. She has also had decreased oral intake recently Past Medical History Cardiovascular: CAD, CHF, HTN, Hyperlipidemia Pulmonary: COPD GI: Diverticulosis, GERD Heme/Onc: Cancer Psych: Depression Musculoskeletal: low back pain, Osteoarthritis Renal/: UTI, Other Endocrine: Osteoporosis Past Surgical History Past Surgical History: Hysterectomy, Other Family History Family History: No Significant Social History No ALCOHOL: none Drugs: None Lives: Alone Current Problem List Problem List Problems Medical Problems: (1) Failure to thrive Status: Acute (2) Sepsis Status: Acute Current Medications Current Medications Current Medications Sodium Chloride 1,000 ml @ 1,000 mls/hr 1X ONCE IV Last administered on at 21:53; Start 08/23/21 at 22:00; Stop 08/23/21 at 22:59; Status DC Acetaminophen (Tylenol) 650 mg 1X ONCE PEG ; Start 08/23/21 at 22:00; Stop 08/23/21 at 22:01; Status DC Piperacillin Sod/ Tazobactam Sod 4.5 gm/Sodium Chloride 100 ml @ 200 mls/hr 1X ONCE IV ; Start 08/23/21 at 23:30; Stop 08/23/21 at 23:59; Status Cancel Clindamycin Phosphate 50 ml @ 100 mls/hr 1X ONCE IV Last administered on 08/23/21at 23:51; Start 08/23/21 at 23:30; Stop 08/23/21 at 23:59; Status DC Piperacillin Sod/ Tazobactam Sod 3.375 gm/Sodium Chloride 50 ml @ 100 mls/hr 1X ONCE IV Last administered on 08/23/21at 23:41; Start 08/23/21 at 23:45; Stop 08/24/21 at 00:14; Status DC Ringer's Solution 1,000 ml @ 75 mls/hr 1X ONCE IV Last administered on at 09:42; Start 08/24/21 at 08:00; Stop 08/24/21 at 21:19; Status DC Acetaminophen (Tylenol Supp) 650 [address]N Q6HRS PRN CT MILD PAIN / TEMP > 100.3'F; Start 08/24/21 at 08:00 Bisacodyl (Dulcolax Supp) [address]N [address]ILY [address] CONSTIPATION; Start 08/24/21 at 08:00 Ondansetron HCl (Zofran) 4 mg PRN Q4HRS PRN IVP NAUSEA/VOMITING Last administered on 08/25/21at 09:29; Start 08/24/21 at 08:00 Ondansetron HCl (Zofran Odt) 4 mg PRN Q4HRS PRN PO NAUSEA; Start 08/24/21 at 08:00 Heparin Sodium (Porcine) (Heparin Sodium) 5,000 unit Q8HRS SQ Last administered on 08/25/21at 06:25; Start 08/24/21 at 08:00 Piperacillin Sod/ Tazobactam Sod (Zosyn Per Pharmacy) 1 each PRN DAILY PRN [facility] SEE COMMENTS; Start 08/24/21 at 08:00 Piperacillin Sod/ Tazobactam Sod 2.25 gm/Sodium Chloride 50 ml @ 100 mls/hr Q6HRS IV Last administered on 08/25/21at 12:06; Start 08/24/21 at 09:00 Levothyroxine Sodium 50 mcg/ Sodium Chloride 5 ml @ 100 mls/hr 1X ONCE IVP Last administered on 08/24/21at 15:28; Start 08/24/21 at 15:30; Stop 08/24/21 at 15:34; Status DC Albuterol Sulfate (Ventolin Neb Soln) 2.5 mg PRN Q4HRS PRN NEB SHORTNESS OF BREATH; Start 08/24/21 at 15:00 Albuterol/ Ipratropium (Duoneb) 3 ml RTQID NEB Last administered on 08/25/21at 11:30; Start 08/24/21 at 16:00 Budesonide (Pulmicort) 0.5 mg RTBID NEB Last administered on 08/25/21at 07:45; Start 08/24/21 at 20:00 Atorvastatin Calcium (Lipitor) 20 mg QHS PO Last administered on 08/24/21at 21:39; Start 08/24/21 at 21:00 Clopidogrel Bisulfate (Plavix) 75 mg DAILYWBKFT PO Last administered on 08/25/21at 09:12; Start 08/25/21 at 08:00 Isosorbide Mononitrate (Imdur) 30 mg DAILY PO Last administered on 08/25/21at 09:12; Start 08/25/21 at 09:00 Levothyroxine Sodium (Synthroid) 75 mcg DAILY06 PO ; Start 08/25/21 at 06:00; Stop 08/25/21 at 09:53; Status DC Metoprolol Succinate (Toprol Xl) 25 mg BID PO Last administered on 08/25/21at 09:13; Start 08/24/21 at 21:00 Mirtazapine (Remeron) 15 mg DAILY PO Last administered on 08/25/21 09:12; Start 08/25/21 at 09:00 Vitamin D (Vitamin D3) 2,000 unit DAILY PO Last administered on 08/25/21 09:12; Start 08/25/21 at 09:00; Stop 08/25/21 at 09:48; Status DC Pantoprazole Sodium (Protonix) 40 mg DAILYAC PO Last administered on 08/25/21 09:12; Start 08/25/21 at 07:30 Theophylline (Theodur) 150 mg BID PO Last administered on 10/28/21at 09:12; Start 08/24/21 at 21:00 Sodium Chloride 1,000 ml @ 100 mls/hr Q10H IV Last administered on 08/25/21at 10:18; Start 08/25/21 at 09:45 Calcitonin [place] (Miacalcin) 400 unit BID SQ Last administered on 08/25/21at 10:18; Start 08/25/21 at 10:00; Stop 08/25/21 at 21:01 Levothyroxine Sodium (Synthroid) 50 mcg DAILY06 PO ; Start 08/26/21 at 06:00 Prochlorperazine Edisylate (Compazine) 10 mg PRN Q6HRS PRN IV NAUSEA/VOMITING Last administered on 08/25/21at 12:06; Start 08/25/21 at 12:15 Active Scripts Active Atorvastatin Calcium 20 Mg Tablet 20 Mg PO QHS Acetaminophen 500 Mg Tablet 500 Mg PO PRN Q6HRS PRN 30 Days Clopidogrel (Clopidogrel Bisulfate) 75 Mg Tablet 75 Mg PO DAILYWBKFT 30 Days Reported Metoprolol Succinate ( Xl ) (Metoprolol Succinate) 25 Mg Tab.er.24h 1 Tab PO BID Clonidine Hcl 0.1 Mg Tablet 0.1 Mg PO DAILY PRN Melo-24 (Theophylline Anhydrous) 400 Mg Cap.er.24h 1 Cap PO DAILY 30 Days Isosorbide Mononitrate Er (Isosorbide Mononitrate) 30 Mg Tab.er.24h 1 Tab PO DAILY Potassium Chloride (Potassium Chloride) 10 Meq Tab.sr.24h 10 Meq PO DAILY Mirtazapine 15 Mg Tablet 15 Mg PO DAILY Super B Maxi Complex Caplet (Vitamin B Complex/Folic Acid) 0.4 Mg Tablet 0.4 Mg PO DAILY Ferrous Sulfate 325 Mg Tablet 325 Mg PO DAILY Vitamin D (Cholecalciferol (Vitamin D3)) 2,000 Unit Capsule 2,000 Unit PO BID Colace (Docusate Sodium) 100 Mg Capsule 100 Mg PO HS Nexium Capsule (Esomeprazole Magnesium) 40 Mg Capsule.dr 1 Cap PO DAILY Levothyroxine Sodium 75 Mcg Tablet 1 Tab PO DAILY Gabapentin (Gabapentin) 100 Mg Capsule 200 Mg PO HS Allergies Allergies: Coded Allergies: aspirin (Verified Allergy, Intermediate, 05/08/16) codeine (Verified Allergy, Intermediate, 05/08/16) methocarbamol (Verified Allergy, Intermediate, 05/08/16) morphine (Verified Allergy, Intermediate, 05/08/16) Morphine Sulfate ER 15 mg oxycodone (Verified Allergy, Intermediate, 05/08/16) sulfamethoxazole (Verified Allergy, Intermediate, 05/08/16) tramadol (Verified Allergy, Intermediate, 05/08/16) trimethoprim (Verified Allergy, Intermediate, 05/08/16) ibuprofen (Verified Allergy, Mild, 04/22/20) ROS Review of System Negative unless stated otherwise in HPI Physical Exam General: Alert HEENT: Atraumatic Lungs: Clear to auscultation Abdomen: Soft Extremities: No clubbing Skin: No breakdown Psych/Mental Status: Mood NL MUSCULOSKELETAL: No deformity Vitals VITALS Vital Signs Date Time Temp Pulse Resp B/P (MAP) Pulse Ox O2 Delivery O2 Flow Rate FiO2 08/25/21 11:30 Nasal Cannula 5.0 08/25/21 11:00 96.4 102 20 126/66 (86) 91 96.4 Labs Labs Laboratory Tests Test 08/23/21 21:42 08/23/21 21:47 08/23/21 23:40 08/24/21 09:10 White Blood Count 15.1 x10^3/uL (4.0-11.0) 9.1 x10^3/uL (4.0-11.0) Red Blood Count 3.65 x10^6/uL (3.50-5.40) 2.91 x10^6/uL (3.50-5.40) Hemoglobin 10.2 g/dL (12.0-15.5) 8.3 g/dL (12.0-15.5) Hematocrit 33.4 % (36.0-47.0) 26.6 % (36.0-47.0) Mean Corpuscular Volume 91 fL (79-100) 91 fL (79-100) Mean Corpuscular Hemoglobin 28 pg (25-35) 29 pg (25-35) Mean Corpuscular Hemoglobin Concent 31 g/dL (31-37) 31 g/dL (31-37) Red Cell Distribution Width 15.7 % (11.5-14.5) 15.5 % (11.5-14.5) Platelet Count 333 x10^3/uL (140-400) 244 x10^3/uL (140-400) Neutrophils (%) (Auto) 90 % (31-73) 75 % (31-73) Lymphocytes (%) (Auto) 4 % (24-48) 14 % (24-48) Monocytes (%) (Auto) 6 % (0-9) 11 % (0-9) Eosinophils (%) (Auto) 0 % (0-3) 0 % (0-3) Basophils (%) (Auto) 1 % (0-3) 0 % (0-3) Neutrophils # (Auto) 13.6 x10^3/uL (1.8-7.7) 6.8 x10^3/uL (1.8-7.7) Lymphocytes # (Auto) 0.5 x10^3/uL (1.0-4.8) 1.2 x10^3/uL (1.0-4.8) Monocytes # (Auto) 0.9 x10^3/uL (0.0-1.1) 1.0 x10^3/uL (0.0-1.1) Eosinophils # (Auto) 0.0 x10^3/uL (0.0-0.7) 0.0 x10^3/uL (0.0-0.7) Basophils # (Auto) 0.1 x10^3/uL (0.0-0.2) 0.0 x10^3/uL (0.0-0.2) Segmented Neutrophils % 89 % (35-66) Band Neutrophils % 2 % (0-9) Lymphocytes % 4 % (24-48) Monocytes % 5 % (0-10) Toxic Granulation Slight Platelet Estimate Adequate (ADEQUATE) Hypochromasia Slight Basophilic Stippling Present Anisocytosis Slight Prothrombin Time 15.8 SEC (11.7-14.0) Prothromb Time International Ratio 1.3 (0.8-1.1) Activated Partial Thromboplast Time 33 SEC (24-38) Sodium Level 145 mmol/L (136-145) 145 mmol/L (136-145) Potassium Level 4.6 mmol/L (3.5-5.1) 3.6 mmol/L (3.5-5.1) Chloride Level 105 mmol/L (98-107) 109 mmol/L (98-107) Carbon Dioxide Level 32 mmol/L (21-32) 33 mmol/L (21-32) Anion Gap 8 (6-14) 3 (6-14) Blood Urea Nitrogen 21 mg/dL (7-20) 20 mg/dL (7-20) Creatinine 0.9 mg/dL (0.6-1.0) 0.9 mg/dL (0.6-1.0) Estimated GFR (Cockcroft-Gault) 59.8 59.8 Glucose Level 94 mg/dL (70-99) 92 mg/dL (70-99) Lactic Acid Level 1.1 mmol/L (0.4-2.0) Calcium Level 11.9 mg/dL (8.5-10.1) 10.9 mg/dL (8.5-10.1) Magnesium Level 1.7 mg/dL (1.8-2.4) Total Bilirubin 0.3 mg/dL (0.2-1.0) Direct Bilirubin 0.1 mg/dL (0.0-0.2) Aspartate Amino Transf (AST/SGOT) 28 U/L (15-37) Alanine Aminotransferase (ALT/SGPT) 14 U/L (14-59) Alkaline Phosphatase 77 U/L (46-116) Ammonia < 10 mcmol/L (11-34) Creatine Kinase 115 U/L (26-192) Troponin I Quantitative < 0.017 ng/mL (0.000-0.055) [id number]-Fnv-[id number]-Type Natriuretic Peptide 1636 pg/mL (0-449) Total Protein 6.6 g/dL (6.4-8.2) Albumin 2.0 g/dL (3.4-5.0) 1.5 g/dL (3.4-5.0) Salicylates Level 1.7 mg/dL (2.8-20.0) Salicylate Last Dose Date Unknown Salicylate Last Dose Time Unknown Acetaminophen Level < 2 mcg/ml (10-30) Acetaminophen Last Dose Date Unknown Acetaminophen Last Dose Time [place] Influenza Type A Antigen Negative (NEGATIVE) Influenza Type B Antigen Negative (NEGATIVE) SARS-CoV-2 RNA (CESILIA) Negative (Negative) SARS-CoV-2 Antigen (Rapid) Negative (NEGATIVE) Urine Collection Type U cath Urine Color Yellow Urine Clarity Clear Urine pH 5.5 (<5.0-8.0) Urine Specific [place] 1.015 (1.000-1.030) Urine Protein 30 mg/dL (NEG-TRACE) Urine Glucose (UA) Negative mg/dL (NEG) Urine Ketones (Stick) 15 mg/dL (NEG) Urine Blood Negative (NEG) Urine Nitrite Negative (NEG) Urine Bilirubin Negative (NEG) Urine Urobilinogen Dipstick 0.2 mg/dL (0.2 mg/dL) Urine Leukocyte Esterase Negative (NEG) Urine RBC Rare /HPF (0-2) Urine WBC Rare /HPF (0-4) Urine Squamous Epithelial Cells Few /LPF Urine Amorphous Sediment Present /HPF Urine Bacteria 0 /HPF (0-FEW) Urine Mucus Slight /LPF Urine Opiates Screen Neg (NEG) Urine Methadone Screen Neg (NEG) Urine Barbiturates Neg (NEG) Urine Phencyclidine Screen Neg (NEG) Urine Amphetamine/Methamphetamine Neg (NEG) Urine Benzodiazepines Screen Neg (NEG) Urine Cocaine Screen Neg (NEG) Urine Cannabinoids Screen Neg (NEG) Urine Ethyl Alcohol Neg (NEG) Phosphorus Level 3.7 mg/dL (2.6-4.7) Thyroid Stimulating Hormone (TSH) 0.027 uIU/mL (0.358-3.74) Test 08/25/21 06:50 Sodium Level 149 mmol/L (136-145) Potassium Level 3.4 mmol/L (3.5-5.1) Chloride Level 109 mmol/L (98-107) Carbon Dioxide Level 32 mmol/L (21-32) Anion Gap 8 (6-14) Blood Urea Nitrogen 17 mg/dL (7-20) Creatinine 1.0 mg/dL (0.6-1.0) Estimated GFR (Cockcroft-Gault) 53.0 Glucose Level 59 mg/dL (70-99) Calcium Level 11.2 mg/dL (8.5-10.1) Phosphorus Level 2.9 mg/dL (2.6-4.7) Iron Level 20 ug/dL (50-170) Total Iron Binding Capacity 92 ug/dL (250-450) Iron Saturation 22 % (15-34) Albumin 1.5 g/dL (3.4-5.0) Laboratory Tests Test 08/25/21 06:50 Sodium Level 149 mmol/L (136-145) Potassium Level 3.4 mmol/L (3.5-5.1) Chloride Level 109 mmol/L (98-107) Carbon Dioxide Level 32 mmol/L (21-32) Anion Gap 8 (6-14) Blood Urea Nitrogen 17 mg/dL (7-20) Creatinine 1.0 mg/dL (0.6-1.0) Estimated GFR (Cockcroft-Gault) 53.0 Glucose Level 59 mg/dL (70-99) Calcium Level 11.2 mg/dL (8.5-10.1) Phosphorus Level 2.9 mg/dL (2.6-4.7) Iron Level 20 ug/dL (50-170) Total Iron Binding Capacity 92 ug/dL (250-450) Iron Saturation 22 % (15-34) Albumin 1.5 g/dL (3.4-5.0) Assessment/Plan Assessment/Plan Assessment: History of squamous cell carcinoma of the lung in 2016 status post chemora diation Hypercalcemia Failure to thrive Metabolic encephalopathy, improved Severe protein calorie malnutrition Coronary artery disease history Recommendations: -Recommend SPEP and free light chain assay to exclude plasma cell dyscrasia -Recommend CT chest without contrast to evaluate for recurrence of pulmonary malignancy and evaluate lung opacities that were described on recent chest x-ray -Follow-up results of hypercalcemia work-up ordered by Dr. Singh -Management of acute respiratory failure per pulmonology service -Discussed with patient and family that given the patient's significant physical decline and frail functional status, she is unlikely to make significant improvements in health and functional status. Discussed the option of hospice versus completing hypercalcemia work-up. They are interested in completing evaluation for hypercalcemia work-up before discussing goals of care. -Continue supportive care and consider hospice based on clinical course. We will follow up to review results of CT chest Pratik Patton MD Medical Oncology/Hematology Ph: [phone] SAMUEL PATTON MD Aug 25, 2021 14:44
[2021-08-25 15:00] VITALS: BP 111/55
[2021-08-25 19:00] VITALS: BP 112/57
--- NOTE | 2021-08-25 21:35 | NUR ---
Unable to administer theophylline or metoprolol because patient needs meds crushed, per MAR these meds are not to be crushed.
[2021-08-25] MEDS: ATORVASTATIN CALCIUM 20 MG TABLET PO SCH (21:37)
--- NOTE | 2021-08-25 22:41 | NUR ---
Patient refusing to take any oral meds at this time. Offered thickened liquids per diet order, offered jello, offered pudding. Patient refusing all.
[2021-08-25 23:00] VITALS: BP 131/65
[2021-08-26] MEDS: PIPERACILLIN/TAZOBACTAM 2.25 GM in IV NORMAL SALINE 50ML 50 ML IV SCH ×4 (00:27→17:39)
[2021-08-26 03:00] VITALS: BP 136/66
[2021-08-26] MEDS: LEVOTHYROXINE 75 MCG TABLET PO SCH (05:38)
[2021-08-26] MEDS: HEPARIN for SUB-Q USE 5,000 UNIT/ML VIAL. SQ SCH ×3 (06:02→21:36)
[2021-08-26 07:00] VITALS: BP 149/72
[2021-08-26] MEDS: BUDESONIDE 0.5 MG/2 ML NEBU. NEB SCH ×2 (07:37→18:27)
[2021-08-26] MEDS: IPRATRPIUM/ALBUTEROL 0.5/2.5MG 3 ML NEBU. NEB SCH ×4 (07:37→18:26)
[2021-08-26 07:49] LABS: CREATININE 0.8 mg/dL (0.6-1.0); GFR 68.5; POTASSIUM 3.2 mmol/L (3.5-5.1)
--- NOTE | 2021-08-26 08:43 | PDOC ---
PULMONARY PROGRESS NOTES DATE: 08/26/21 TIME: 08:43 Subjective Daughter at the bedside Patient more awake She is not short of breath, she feels better. Vitals Vital Signs Date Time Temp Pulse Resp B/P (MAP) Pulse Ox O2 Delivery O2 Flow Rate FiO2 08/26/21 07:38 92 Nasal Cannula 5.0 08/26/21 03:00 97.6 90 22 136/66 (89) 97.6 ROS: No Nausea, No Chest Pain, No Abdominal Pain, No Increase Cough General: Alert, Confused Lungs: Clear Cardiovascular: S1 Abdomen: Soft Neuro Exam: Alert Extremities: No Edema Skin: Warm Labs Laboratory Tests Test 08/24/21 09:10 08/25/21 06:50 08/26/21 06:50 White Blood Count 9.1 x10^3/uL (4.0-11.0) Red Blood Count 2.91 x10^6/uL (3.50-5.40) Hemoglobin 8.3 g/dL (12.0-15.5) Hematocrit 26.6 % (36.0-47.0) Mean Corpuscular Volume 91 fL (79-100) Mean Corpuscular Hemoglobin 29 pg (25-35) Mean Corpuscular Hemoglobin Concent 31 g/dL (31-37) Red Cell Distribution Width 15.5 % (11.5-14.5) Platelet Count 244 x10^3/uL (140-400) Neutrophils (%) (Auto) 75 % (31-73) Lymphocytes (%) (Auto) 14 % (24-48) Monocytes (%) (Auto) 11 % (0-9) Eosinophils (%) (Auto) 0 % (0-3) Basophils (%) (Auto) 0 % (0-3) Neutrophils # (Auto) 6.8 x10^3/uL (1.8-7.7) Lymphocytes # (Auto) 1.2 x10^3/uL (1.0-4.8) Monocytes # (Auto) 1.0 x10^3/uL (0.0-1.1) Eosinophils # (Auto) 0.0 x10^3/uL (0.0-0.7) Basophils # (Auto) 0.0 x10^3/uL (0.0-0.2) Sodium Level 145 mmol/L (136-145) 149 mmol/L (136-145) 150 mmol/L (136-145) Potassium Level 3.6 mmol/L (3.5-5.1) 3.4 mmol/L (3.5-5.1) 3.2 mmol/L (3.5-5.1) Chloride Level 109 mmol/L (98-107) 109 mmol/L (98-107) 111 mmol/L (98-107) Carbon Dioxide Level 33 mmol/L (21-32) 32 mmol/L (21-32) 28 mmol/L (21-32) Anion Gap 3 (6-14) 8 (6-14) 11 (6-14) Blood Urea Nitrogen 20 mg/dL (7-20) 17 mg/dL (7-20) 11 mg/dL (7-20) Creatinine 0.9 mg/dL (0.6-1.0) 1.0 mg/dL (0.6-1.0) 0.8 mg/dL (0.6-1.0) Estimated GFR (Cockcroft-Gault) 59.8 53.0 68.5 Glucose Level 92 mg/dL (70-99) 59 mg/dL (70-99) 86 mg/dL (70-99) Calcium Level 10.9 mg/dL (8.5-10.1) 11.2 mg/dL (8.5-10.1) 10.0 mg/dL (8.5-10.1) Phosphorus Level 3.7 mg/dL (2.6-4.7) 2.9 mg/dL (2.6-4.7) Albumin 1.5 g/dL (3.4-5.0) 1.5 g/dL (3.4-5.0) Thyroid Stimulating Hormone (TSH) 0.027 uIU/mL (0.358-3.74) Iron Level 20 ug/dL (50-170) Total Iron Binding Capacity 92 ug/dL (250-450) Iron Saturation 22 % (15-34) Laboratory Tests Test 08/26/21 06:50 Sodium Level 150 mmol/L (136-145) Potassium Level 3.2 mmol/L (3.5-5.1) Chloride Level 111 mmol/L (98-107) Carbon Dioxide Level 28 mmol/L (21-32) Anion Gap 11 (6-14) Blood Urea Nitrogen 11 mg/dL (7-20) Creatinine 0.8 mg/dL (0.6-1.0) Estimated GFR (Cockcroft-Gault) 68.5 Glucose Level 86 mg/dL (70-99) Calcium Level 10.0 mg/dL (8.5-10.1) Medications Active Scripts Medications Dose Route/Sig Max Daily Dose Days Date Category Prednisone 20 Mg Tablet 40 Mg PO DAILY 3 05/04/21 Rx Atorvastatin Calcium 20 Mg Tablet 20 Mg PO QHS 05/04/21 Rx Metoprolol Succinate ( Xl ) (Metoprolol Succinate) 25 Mg Tab.er.24h 1 Tab PO BID 04/29/21 Reported Clonidine Hcl 0.1 Mg Tablet 0.1 Mg PO DAILY PRN 04/24/21 Reported Melo-24 (Theophylline Anhydrous) 400 Mg Cap.er.24h 1 Cap PO DAILY 30 04/24/21 Reported Isosorbide Mononitrate Er (Isosorbide Mononitrate) 30 Mg Tab.er.24h 1 Tab PO DAILY 04/24/21 Reported Potassium Chloride (Potassium Chloride) 10 Meq Tab.sr.24h 10 Meq PO DAILY 04/24/21 Reported Acetaminophen 500 Mg Tablet 500 Mg PO PRN Q6HRS PRN 30 04/27/20 Rx Mirtazapine 15 Mg Tablet 15 Mg PO DAILY 04/21/20 Reported Clopidogrel (Clopidogrel Bisulfate) 75 Mg Tablet 75 Mg PO DAILYWBKFT 30 04/25/19 Rx Super B Maxi Complex Caplet (Vitamin B Complex/Folic Acid) 0.4 Mg Tablet 0.4 Mg PO DAILY 04/22/19 Reported Ferrous Sulfate 325 Mg Tablet 325 Mg PO DAILY 05/31/17 Reported Vitamin D (Cholecalciferol (Vitamin D3)) 2,000 Unit Capsule 2,000 Unit PO BID 05/31/17 Reported Colace (Docusate Sodium) 100 Mg Capsule 100 Mg PO HS 03/05/17 Reported Nexium Capsule (Esomeprazole Magnesium) 40 Mg Capsule.dr 1 Cap PO DAILY 05/08/16 Reported Levothyroxine Sodium 75 Mcg Tablet 1 Tab PO DAILY 05/08/16 Reported Gabapentin (Gabapentin) 100 Mg Capsule 200 Mg PO HS 05/08/16 Reported Impression . IMPRESSION: 1. Acute on chronic hypoxemic respiratory failure. 2. Acute exacerbation of chronic obstructive pulmonary disease. 3. Abnormal x-ray, possible progression of her malignancy, questionable pneumonia. 4. Acute encephalopathy, suspect multifactorial in nature. 5. Squamous cell carcinoma, status post chemoradiation, diagnosed in 2016. 6. Fever. 7. Sepsis. 8. Hypernatremia. 9. Severe protein malnutrition, present upon admission. 10. Coronary artery disease with previous stent placement. 11. Hypercalcemia Plan . Updated 08/26 Calcium has improved Discussed with daughter at the bedside continue current care Obtain CT chest Recommendations from oncology Recommendations: -Recommend SPEP and free light chain assay to exclude plasma cell dyscrasia -Recommend CT chest without contrast to evaluate for recurrence of pulmonary malignancy and evaluate lung opacities that were described on recent chest x-ray -Follow-up results of hypercalcemia work-up ordered by Dr. Singh -Management of acute respiratory failure per pulmonology service -Discussed with patient and family that given the patient's significant physical decline and frail functional status, she is unlikely to make significant improve ments in health and functional status. Discussed the option of hospice versus completing hypercalcemia work-up. They are interested in completing evaluation for hypercalcemia work-up before discussing goals of care. -Continue supportive care and consider hospice based on clinical course. We will follow up to review results of CT chest Updated 08/25 Discussed with daughter at the bedside Hypercalcemia being treated by nephrology Discussed with Dr. Singh, medical oncology consulted Patient DNR IVETTE CHO MD Aug 26, 2021 08:43
[2021-08-26] MEDS: IV NORMAL SALINE 1000ML BAG 1,000 ML IV SCH (08:45)
[2021-08-26] MEDS: THEOPHYLLINE 12HR ER 300 MG TAB.ER.12H. PO SCH ×2 (08:50→21:00)
[2021-08-26] MEDS: ISOSORBIDE MONONITRATE ER 30 MG TAB.ER.24H PO SCH (08:51)
[2021-08-26] MEDS: CLOPIDOGREL BISULFATE 75 MG TABLET PO SCH (08:51)
[2021-08-26] MEDS: METOPROLOL SUCC 24HR ER 25 MG TAB.ER.24H. PO SCH ×2 (08:52→21:00)
[2021-08-26] MEDS: PANTOPRAZOLE 40 MG TABLET.DR. PO SCH (08:52)
[2021-08-26] MEDS: MIRTAZAPINE 15 MG TABLET PO SCH (08:54)
[2021-08-26 11:00] VITALS: BP 156/66
--- NOTE | 2021-08-26 13:24 | PDOC ---
DATE OF SERVICE: DOS: DATE: 08/26/21 TIME: 13:18 SUBJECTIVE ROS Follow-up for hypercalcemia Patient doing much better. Reportedly much more awake and alert today. Unable to answer review of system questions OBJECTIVE Vital Signs Vital Signs Date Time Temp Pulse Resp B/P (MAP) Pulse Ox O2 Delivery O2 Flow Rate FiO2 08/26/21 11:29 93 Nasal Cannula 5.0 08/26/21 11:00 97.8 72 18 156/66 (96) 97.8 I & 0 Intake and Output 08/26/21 07:00 Intake Total 1394 ml Output Total 525 ml Balance 869 ml Intake Oral 20 ml IV Total 1374 ml Output Urine Total 525 ml # Voids 2 PHYSICAL EXAM Physical Exam GEN: Awake, Oriented x 1 ?, In no distress EYES: Vision Unchanged, Conjunctiva Normal EN: No EN Drainage, Mucous Membranes [] NECK: no JVD, no JVP, Supple, no Thyromegaly CVS: S1S2, soft Murmur, No Gallop, No Rub,no Edema RESP: few Rales, no Rhonchi,no Acc. Muscle Use GI: BS + ve, NO Bruit, Non Tender, Non Distended : no CVA tenderness, no Suprapubic Tenderness DIAGNOSIS/ASSESSMENT Assessment & Plan HyperCalcemia -now resolved Anemia: Appears to be iron deficient: defer to Hem/onc , Hypernatremia-hypotonic IV fluids as ordered HypoKalemia - mild, add to IV fluids Encephalopathy -much improved currently. 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 Dr. Harkins will return on Sunday to follow-up on patient's care COMMENT/RELEVANT DATA Meds Current Medications Medications (Trade) Dose Ordered Sig/Morro Start Time Stop Time Status Last Admin Dose Admin Acetaminophen (Tylenol Supp) 650 mg PRN Q6HRS PRN 08/24/21 08:00 Acetaminophen (Tylenol) 650 mg 1X ONCE 08/23/21 22:00 08/23/21 22:01 DC Albuterol Sulfate (Ventolin Neb Soln) 2.5 mg PRN Q4HRS PRN 08/24/21 15:00 Albuterol/ Ipratropium (Duoneb) 3 ml RTQID 08/24/21 16:00 08/26/21 11:29 3 ML Atorvastatin Calcium (Lipitor) 20 mg QHS 08/24/21 21:00 08/25/21 21:37 20 MG Bisacodyl (Dulcolax Supp) 10 mg PRN DAILY PRN 08/24/21 08:00 Budesonide (Pulmicort) 0.5 mg RTBID 08/24/21 20:00 08/26/21 07:37 0.5 MG Calcitonin [place] (Miacalcin) 400 unit BID 08/25/21 10:00 08/25/21 21:01 DC 08/25/21 21:38 400 UNIT Clindamycin Phosphate 50 ml @ 100 mls/hr 1X ONCE 08/23/21 23:30 08/23/21 23:59 DC 08/23/21 23:51 100 MLS/HR Clopidogrel Bisulfate (Plavix) 75 mg DAILYWBKFT 08/25/21 08:00 08/26/21 08:51 75 MG Heparin Sodium (Porcine) (Heparin Sodium) 5,000 unit Q8HRS 08/24/21 08:00 08/26/21 06:02 5,000 UNIT Isosorbide Mononitrate (Imdur) 30 mg DAILY 08/25/21 09:00 08/26/21 08:51 30 MG Levothyroxine Sodium (Synthroid) 50 mcg DAILY06 08/26/21 06:00 Levothyroxine Sodium 50 mcg/ Sodium Chloride 5 ml @ 100 mls/hr 1X ONCE 08/24/21 15:30 08/24/21 15:34 DC 08/24/21 15:28 100 MLS/HR Metoprolol Succinate (Toprol Xl) 25 mg BID 08/24/21 21:00 08/26/21 08:52 25 MG Mirtazapine (Remeron) 15 mg DAILY 08/25/21 09:00 08/26/21 08:54 15 MG Ondansetron HCl (Zofran Odt) 4 mg PRN Q4HRS PRN 08/24/21 08:00 Ondansetron HCl (Zofran) 4 mg PRN Q4HRS PRN 08/24/21 08:00 08/25/21 09:29 4 MG Pantoprazole Sodium (Protonix) 40 mg DAILYAC 08/25/21 07:30 08/26/21 08:52 40 MG Piperacillin Sod/ Tazobactam Sod (Zosyn Per Pharmacy) 1 each PRN DAILY PRN 08/24/21 08:00 Piperacillin Sod/ Tazobactam Sod 2.25 gm/Sodium Chloride 50 ml @ 100 mls/hr Q6HRS 08/24/21 09:00 08/26/21 12:00 100 MLS/HR Piperacillin Sod/ Tazobactam Sod 3.375 gm/Sodium Chloride 50 ml @ 100 mls/hr 1X ONCE 08/23/21 23:45 08/24/21 00:14 DC 08/23/21 23:41 100 MLS/HR Piperacillin Sod/ Tazobactam Sod 4.5 gm/Sodium Chloride 100 ml @ 200 mls/hr 1X ONCE 08/23/21 23:30 08/23/21 23:59 Cancel Prochlorperazine Edisylate (Compazine) 10 mg PRN Q6HRS PRN 08/25/21 12:15 08/25/21 12:06 10 MG Ringer's Solution 1,000 ml @ 75 mls/hr 1X ONCE 08/24/21 08:00 08/24/21 21:19 DC 08/24/21 09:42 75 MLS/HR Sodium Chloride 1,000 ml @ 100 mls/hr Q10H 08/25/21 09:45 08/26/21 08:45 100 MLS/HR Theophylline (Theodur) 150 mg BID 08/24/21 21:00 08/26/21 08:50 150 MG Vitamin D (Vitamin D3) 2,000 unit DAILY 08/25/21 09:00 08/25/21 09:48 DC 08/25/21 09:12 2,000 UNIT Lab Laboratory Tests Test 08/26/21 06:50 Sodium Level 150 mmol/L (136-145) Potassium Level 3.2 mmol/L (3.5-5.1) Chloride Level 111 mmol/L (98-107) Carbon Dioxide Level 28 mmol/L (21-32) Anion Gap 11 (6-14) Blood Urea Nitrogen 11 mg/dL (7-20) Creatinine 0.8 mg/dL (0.6-1.0) Estimated GFR (Cockcroft-Gault) 68.5 Glucose Level 86 mg/dL (70-99) Calcium Level 10.0 mg/dL (8.5-10.1) Results All relevant outside records, renal labs, imaging studies, telemetry/EKG's were reviewed. Justicifation of Admission Dx: Justifications for Admission: Justification of Admission Dx: Comment: ANNEMARIE CASTANO MD Aug 26, 2021 13:24
[2021-08-26] MEDS ORDERED: MAGNESIUM SULFATE 2GM 50 ML IV PRN (13:30)
[2021-08-26] MEDS: POTASSIUM CHLORIDE 40 MEQ in IV 1/2 NORMAL SALINE 1,000 ML IV SCH (14:25)
[2021-08-26 15:00] VITALS: BP 143/76
--- NOTE | 2021-08-26 15:12 | PDOC ---
[employer] PROGRESS NOTE Date of Service DOS: DATE: 08/26/21 TIME: 15:11 Chief Complaint Chief Complaint A/P: Acute respiratory failure with hypoxia - likely COPD exacerbation and pneumonia, possibly RUL around her mass. Will treat for both. rapid influenza and rapid SARS-CoV-2 negative. Acute encephalopathy - metabolic due to hypoxia, hypercalcemia, will continue to altered mental status. No focal neurologic deficits. Her daughter does note she has had significant cognitive decline over the last 3 years but no formal diagnosis of dementia Hypercalcemia - possibly due to dehydration/free water access issue vs hypercalcemia of malignancy. 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 No recent PET scan available RENETTA on CKD - likely vasomotor nephropathy Sepsis - due to pneumonia, likely aspiration, given empiric fluids and antibiotics Hypernatremia - Likely nutrititional, has not been eating Abnormal weight loss - severe protein calorie malnutrition. Has not been eating, likely cachexia from cancer and COPD H/o GOUT - check uric acid level GERD - on PPI HTN - BP low currently. On metoprolol at home, will hold for now Hypothyroidism - frequently does not take her doses, TSH low, likely needs dose reduction Prior DVT - off anticoagulation due to concern for falls CAD s/p stenting - on cardiac meds Osteoporosis. Previously noted likely chronic. COPD -severe end-stage on chronic 5 L of oxygen at home with significant emphysematous changes of lungs. Currently in acute exacerbation keep O2 between 89 to 92% and give aggressive nebulizer treatments. Pulmonology consulted. Severe protein malnutrition, present upon admission. FEN - NPO PPX - heparin CODE - DNR/DNI - Itzel and Shelton Barksdale and her surrogate decision makers Dispo - inpatient History of Present Illness History of Present Illness Ms Chauhan is a 81 year old female w/ PMHx sqaumous cell lung cancer of right lung, GOUT, GERD, HTN, hypothyroidism, prior DVT, CAD s/p stenting coming to ED via EMS for worsening dyspnea. She lives at home and recently 2 weeks ago her daughter noted she could no longer live alone she has not been eating well for the last 4 days more confused. She is confused but moving all 4 extremities will follow commands. Not oriented to location or month day or year. Head CT with no abnormalities, chest radiograph with significant right-sided changes. Labs with WBC 15.1, Hb 10.2, platelets 333, INR 1.3, NA 145, K4.6, BUN 21, CR 0.9, glucose 94, calcium 11.9, magnesium 1.7, albumin 2, LFTs otherwise within normal laboratory limits, troponin 0, ammonia negative, NT proBNP 1636, lactic acid 1.1, urine drug screen negative, urinalysis bland, rapid influenza negative, rapid COVID-19 negative She is not vaccinated against Covid her daughter notes this is because she thinks her mother is too high risk to have the COVID-19 vaccine Admitted for further care. Calcium back up to 11.2, albumin 1.5. D/w nephrology daughter would like treatment for hypercalcemia. Patient a bit more alert and awake today, very hard of hearing, confused, slight cough. Afebrile. Vitals/I&O Vitals/I&O: Vital Signs Date Time Temp Pulse Resp B/P (MAP) Pulse Ox O2 Delivery O2 Flow Rate FiO2 08/26/21 11:29 93 Nasal Cannula 5.0 08/26/21 11:00 97.8 72 18 156/66 (96) 97.8 I & O 08/25/21 08/25/21 08/26/21 15:00 23:00 07:00 Intake Total 50 ml 567 ml 777 ml Output Total 150 ml 375 ml Balance 50 ml 417 ml 402 ml Physical Exam General: Alert, Other (sleepy, lethargic) Lungs: Clear Abdomen: Soft Extremities: No clubbing Skin: No breakdown Labs Labs: Laboratory Tests Test 08/26/21 06:50 Sodium Level 150 mmol/L (136-145) Potassium Level 3.2 mmol/L (3.5-5.1) Chloride Level 111 mmol/L (98-107) Carbon Dioxide Level 28 mmol/L (21-32) Anion Gap 11 (6-14) Blood Urea Nitrogen 11 mg/dL (7-20) Creatinine 0.8 mg/dL (0.6-1.0) Estimated GFR (Cockcroft-Gault) 68.5 Glucose Level 86 mg/dL (70-99) Calcium Level 10.0 mg/dL (8.5-10.1) Assessment and Plan Assessmemt and Plan Problems Medical Problems: (1) Failure to thrive Status: Acute (2) Sepsis Status: Acute Comment Review of Relevant I have reviewed the following items shirin (where applicable) has been applied. Medications: Current Medications Medications (Trade) Dose Ordered Sig/Morro Route PRN Reason Start Time Stop Time Status Last Admin Dose Admin Potassium Chloride 40 meq/ Sodium Chloride 1,020 ml @ 75 mls/hr [id number] IV 08/26/21 13:30 08/27/21 16:09 08/26/21 14:25 Justifications for Admission Other Justification DARIO ROWLAND MD Aug 26, 2021 15:11
--- NOTE | 2021-08-26 16:51 | RAD ---
EXAM: CT CHEST WITHOUT CONTRAST HISTORY: Lung cancer COMPARISON: CT chest 03/14/2021 TECHNIQUE: Helical CT of the chest performed without contrast. Coronal and sagittal reformats were o btained. One or more of the following individualized dose reduction techniques were utilized for this examinat ion: 1. Automated exposure control 2. Adjustment of the mA and/or kV according to patient size 3. Use of iterative reconstruction technique. FINDINGS: Thyroid gland and thoracic inlet: Thyroid gland is atrophic. Heart and great vessels: Heart is normal in size. There are coronary calcifications. No pericardial e ffusion. The thoracic aorta is normal in caliber. There is severe calcified aortoiliac atherosclerosi s. Mediastinum and sridhar: No definite new lymphadenopathy. Lungs and pleura: There is complete consolidation or collapse of the right lung with volume loss and rightward cardiomediastinal shift. This limits evaluation of the known right hilar/suprahilar mass. T his is new from CT chest 03/14/2021 and worsened from chest radiograph 08/23/2021. There is a cut off appearance of the right mainstem bronchus with suspected mucous plugging in the right upper lobe bron chus and bronchus intermedius. Some of the right upper lobe airways distal to the mucous plugging are opacified. There is no aeration of the right middle or lower lobe airways. There is a new small righ t pleural effusion. Mild emphysema in the left lung. New small left pleural effusion and adjacent lef t lower lobe atelectasis. The 7 mm groundglass opacity in the left lower lobe is not well visualized, possibly obscured. Unchanged 2 mm nodule in the left upper lobe (image 21, series 2). Chest wall and axillae: No axillary lymphadenopathy. Upper abdomen: Unchanged 7 mm cystic lesion in the left hepatic lobe, likely simple cyst. Probable 1. 4 cm cyst in the right kidney. Bones: There is moderate dextroscoliosis of the thoracolumbar spine. Surgical changes of posterior de compression and fusion at L3-L4. Unchanged old mild T2 compression fracture and moderate T5 compressi on fracture. Mild wedging of other vertebral bodies may be degenerative, also chronic. No retropulsio n of cortex. There is multilevel degenerative disc disease IMPRESSION: 1. New complete consolidation of the right lung with volume loss, likely reflecting complete atelecta sis/collapse of the lung. There is a cut off appearance of the bronchus intermedius with opacificatio n of the right upper lobe bronchus and bronchus intermedius, likely due to mucous plugging. Occlusion due to tumor less likely given the change from 08/23/2021 but not entirely excluded. 2. The known right upper lobe mass is difficult to evaluate due to complete consolidation of the surr ounding right lung. 3. New small bilateral pleural effusions. Mild left basilar atelectasis. 4. The 7 mm groundglass opacity in the left lower lobe is not visualized and may be obscured. 5. Unchanged thoracic compression fractures. Electronically signed by: Gissel Lopez MD (08/26/2021 4:49 PM) [facility]
[2021-08-26 17:12] LABS: CALCIUM PTH 11.3 mg/dL (8.7-10.3); PHOSPHORUS PTH 3.3 mg/dL (3.0-4.3); PTH INTACT 12 pg/mL (15-65)
[2021-08-26 19:00] VITALS: BP 153/80
[2021-08-26] MEDS: ATORVASTATIN CALCIUM 20 MG TABLET PO SCH (21:00)
[2021-08-26 23:00] VITALS: BP 161/78
[2021-08-27] MEDS: PIPERACILLIN/TAZOBACTAM 2.25 GM in IV NORMAL SALINE 50ML 50 ML IV SCH ×4 (00:26→17:21)
[2021-08-27 03:15] VITALS: BP 161/84
[2021-08-27] MEDS: POTASSIUM CHLORIDE 40 MEQ in IV 1/2 NORMAL SALINE 1,000 ML IV SCH (03:42)
[2021-08-27] MEDS: LEVOTHYROXINE 75 MCG TABLET PO SCH (06:00)
[2021-08-27] MEDS: HEPARIN for SUB-Q USE 5,000 UNIT/ML VIAL. SQ SCH ×3 (06:01→21:05)
[2021-08-27 06:27] VITALS: BP 123/53
--- NOTE | 2021-08-27 07:09 | PDOC ---
PULMONARY PROGRESS NOTES DATE: 08/27/21 TIME: 07:05 Subjective weak on 02 She is not short of breath, she feels better. Vitals Vital Signs Date Time Temp Pulse Resp B/P (MAP) Pulse Ox O2 Delivery O2 Flow Rate FiO2 08/27/21 06:27 97.5 89 24 123/53 (76) 95 Nasal Cannula 97.5 08/26/21 20:25 5.0 ROS: No Nausea, No Chest Pain, No Abdominal Pain, No Increase Cough General: Alert, Confused Lungs: Other (r diminished bs l cta) Cardiovascular: S1, S2 Abdomen: Soft, Non-tender Neuro Exam: Alert Extremities: No Edema Skin: Warm Labs Laboratory Tests Test 08/26/21 06:50 Sodium Level 150 mmol/L (136-145) Potassium Level 3.2 mmol/L (3.5-5.1) Chloride Level 111 mmol/L (98-107) Carbon Dioxide Level 28 mmol/L (21-32) Anion Gap 11 (6-14) Blood Urea Nitrogen 11 mg/dL (7-20) Creatinine 0.8 mg/dL (0.6-1.0) Estimated GFR (Cockcroft-Gault) 68.5 Glucose Level 86 mg/dL (70-99) Calcium Level 10.0 mg/dL (8.5-10.1) Medications Active Scripts Medications Dose Route/Sig Max Daily Dose Days Date Category Prednisone 20 Mg Tablet 40 Mg PO DAILY 3 05/04/21 Rx Atorvastatin Calcium 20 Mg Tablet 20 Mg PO QHS 05/04/21 Rx Metoprolol Succinate ( Xl ) (Metoprolol Succinate) 25 Mg Tab.er.24h 1 Tab PO BID 04/29/21 Reported Clonidine Hcl 0.1 Mg Tablet 0.1 Mg PO DAILY PRN 04/24/21 Reported Melo-24 (Theophylline Anhydrous) 400 Mg Cap.er.24h 1 Cap PO DAILY 30 04/24/21 Reported Isosorbide Mononitrate Er (Isosorbide Mononitrate) 30 Mg Tab.er.24h 1 Tab PO DAILY 04/24/21 Reported Potassium Chloride (Potassium Chloride) 10 Meq Tab.sr.24h 10 Meq PO DAILY 04/24/21 Reported Acetaminophen 500 Mg Tablet 500 Mg PO PRN Q6HRS PRN 30 04/27/20 Rx Mirtazapine 15 Mg Tablet 15 Mg PO DAILY 04/21/20 Reported Clopidogrel (Clopidogrel Bisulfate) 75 Mg Tablet 75 Mg PO DAILYWBKFT 30 04/25/19 Rx Super B Maxi Complex Caplet (Vitamin B Complex/Folic Acid) 0.4 Mg Tablet 0.4 Mg PO DAILY 04/22/19 Reported Ferrous Sulfate 325 Mg Tablet 325 Mg PO DAILY 05/31/17 Reported Vitamin D (Cholecalciferol (Vitamin D3)) 2,000 Unit Capsule 2,000 Unit PO BID 05/31/17 Reported Colace (Docusate Sodium) 100 Mg Capsule 100 Mg PO HS 03/05/17 Reported Nexium Capsule (Esomeprazole Magnesium) 40 Mg Capsule.dr 1 Cap PO DAILY 05/08/16 Reported Levothyroxine Sodium 75 Mcg Tablet 1 Tab PO DAILY 05/08/16 Reported Gabapentin (Gabapentin) 100 Mg Capsule 200 Mg PO HS 05/08/[address] 1. New complete consolidation of the right lung with volume loss, likely reflecting complete atelectasis/collapse of the lung. There is a cut off appearance of the bronchus intermedius with opacification of the right upper lobe bronchus and bronchus intermedius, likely due to mucous plugging. Occlusion due to tumor less likely given the change from 08/23/2021 but not entirely excluded. 2. The known right upper lobe mass is difficult to evaluate due to complete consolidation of the surrounding right lung. 3. New small bilateral pleural effusions. Mild left basilar atelectasis. 4. The 7 mm groundglass opacity in the left lower lobe is not visualized and may be obscured. 5. Unchanged thoracic compression fractures. Impression . IMPRESSION: 1. Acute on chronic hypoxemic respiratory failure. 2. Acute exacerbation of chronic obstructive pulmonary disease. 3. Abnormal x-ray, possible progression of her malignancy, questionable pneumonia. 4. Acute encephalopathy, suspect multifactorial in nature. 5. Squamous cell carcinoma, status post chemoradiation, diagnosed in 2016. 6. Fever. 7. Sepsis. 8. Hypernatremia. 9. Severe protein malnutrition, present upon admission. 10. Coronary artery disease with previous stent placement. 11. Hypercalcemia Plan . Updated 08/27 02 titration Calcium has improved ct reviewed atelectasis and mucus plugging increase BD to q 4hrs cont ICS add steroid start pd and v of r lung (chest physical therapy) fu cxr on sunday overall prognosis poor Updated 08/26 Calcium has improved Discussed with daughter at the bedside continue current care Obtain CT chest Recommendations from oncology Recommendations: -Recommend SPEP and free light chain assay to exclude plasma cell dyscrasia -Recommend CT chest without contrast to evaluate for recurrence of pulmonary malignancy and evaluate lung opacities that were described on recent chest x-ray -Follow-up results of hypercalcemia work-up ordered by Dr. Singh -Management of acute respiratory failure per pulmonology service -Discussed with patient and family that given the patient's significant physical decline and frail functional status, she is unlikely to make significant improvements in health and functional status. Discussed the option of hospice versus completing hypercalcemia work-up. They are interested in completing dale luation for hypercalcemia work-up before discussing goals of care. -Continue supportive care and consider hospice based on clinical course. We will follow up to review results of CT chest Updated 08/25 Discussed with daughter at the bedside Hypercalcemia being treated by nephrology Discussed with Dr. Singh, medical oncology consulted Patient DNR STEF SINGH MD Aug 27, 2021 07:09
[2021-08-27] MEDS: IPRATRPIUM/ALBUTEROL 0.5/2.5MG 3 ML NEBU. NEB SCH ×4 (07:27→18:22)
[2021-08-27] MEDS: BUDESONIDE 0.5 MG/2 ML NEBU. NEB SCH ×2 (07:27→18:22)
[2021-08-27 08:07] LABS: CALCIUM 10.2 mg/dL (8.5-10.1); POTASSIUM 4.1 mmol/L (3.5-5.1)
[2021-08-27] MEDS: PANTOPRAZOLE 40 MG TABLET.DR. PO SCH (08:46)
[2021-08-27] MEDS: CLOPIDOGREL BISULFATE 75 MG TABLET PO SCH (08:46)
[2021-08-27] MEDS: ISOSORBIDE MONONITRATE ER 30 MG TAB.ER.24H PO SCH (08:46)
[2021-08-27] MEDS: THEOPHYLLINE 12HR ER 300 MG TAB.ER.12H. PO SCH ×2 (08:46→21:00)
[2021-08-27] MEDS: methylPREDNISolone SOD SUCC PF 40 MG/ML VIAL. IV SCH ×2 (08:53→20:47)
[2021-08-27] MEDS: METOPROLOL SUCC 24HR ER 25 MG TAB.ER.24H. PO SCH ×2 (08:54→21:00)
[2021-08-27] MEDS: MIRTAZAPINE 15 MG TABLET PO SCH (09:00)
[2021-08-27] MEDS: ONDANSETRON PF 4 MG/2 ML VIAL. IVP PRN (10:40)
[2021-08-27 11:00] VITALS: BP 79/42
--- NOTE | 2021-08-27 13:20 | PDOC ---
[employer] PROGRESS NOTE Date of Service DOS: DATE: 08/27/21 TIME: 13:19 Chief Complaint Chief Complaint Acute respiratory failure with hypoxia - likely COPD exacerbation and pneumonia, possibly RUL around her mass. Will treat for both. rapid influenza and rapid SARS-CoV-2 negative. Acute encephalopathy - metabolic due to hypoxia, hypercalcemia, will continue to altered mental status. No focal neurologic deficits. Her daughter does note she has had significant cognitive decline over the last 3 years but no formal diagnosis of dementia Hypercalcemia - possibly due to dehydration/free water access issue vs hypercalcemia of malignancy. 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 No recent PET scan available RENETTA on CKD - likely vasomotor nephropathy Sepsis - due to pneumonia, likely aspiration, given empiric fluids and antibiotics Hypernatremia - Likely nutrititional, has not been eating Abnormal weight loss - severe protein calorie malnutrition. Has not been eating, likely cachexia from cancer and COPD H/o GOUT - check uric acid level GERD - on PPI HTN - BP low currently. On metoprolol at home, will hold for now Hypothyroidism - frequently does not take her doses, TSH low, likely needs dose reduction Prior DVT - off anticoagulation due to concern for falls CAD s/p stenting - on cardiac meds Osteoporosis. Previously noted likely chronic. COPD -severe end-stage on chronic 5 L of oxygen at home with significant emphysematous changes of lungs. Currently in acute exacerbation keep O2 between 89 to 92% and give aggressive nebulizer treatments. Pulmonology consulted. Severe protein malnutrition, present upon admission. FEN - NPO PPX - heparin CODE - DNR/DNI - Danny Barksdale and her surrogate decision makers Dispo - inpatient History of Present Illness History of Present Illness 08/27, very weak, poor po intake, calm and pleasatn and interactive Ms Chauhan is a 81 year old female w/ PMHx sqaumous cell lung cancer of right lung, GOUT, GERD, HTN, hypothyroidism, prior DVT, CAD s/p stenting coming to ED via EMS for worsening dyspnea. She lives at home and recently 2 weeks ago her daughter noted she could no longer live alone she has not been eating well for the last 4 days more confused. She is confused but moving all 4 extremities will follow commands. Not oriented to location or month day or year. Head CT with no abnormalities, chest radiograph with significant right-sided changes. Labs with WBC 15.1, Hb 10.2, platelets 333, INR 1.3, NA 145, K4.6, BUN 21, CR 0.9, glucose 94, calcium 11.9, magnesium 1.7, albumin 2, LFTs otherwise within normal laboratory limits, troponin 0, ammonia negative, NT proBNP 1636, lactic acid 1.1, urine drug screen negative, urinalysis bland, rapid influenza negative, rapid COVID-19 negative She is not vaccinated against Covid her daughter notes this is because she thi nks her mother is too high risk to have the COVID-19 vaccine Admitted for further care. Calcium back up to 11.2, albumin 1.5. D/w nephrology daughter would like treatment for hypercalcemia. Patient a bit more alert and awake today, very hard of hearing, confused, slight cough. Afebrile. Vitals/I&O Vitals/I&O: Vital Signs Date Time Temp Pulse Resp B/P (MAP) Pulse Ox O2 Delivery O2 Flow Rate FiO2 08/27/21 11:41 93 Nasal Cannula 5.0 08/27/21 11:00 97.5 117 24 79/42 (54) 97.5 I & O 08/26/21 08/26/21 08/27/21 15:00 23:00 07:00 Intake Total 1267 ml 100 ml Output Total 200 ml 150 ml 300 ml Balance 1067 ml -150 ml -200 ml Physical Exam General: Alert, Other Lungs: Other (r diminished bs l cta) Abdomen: Soft Extremities: No clubbing Skin: No breakdown Labs Labs: Laboratory Tests Test 08/27/21 07:35 Sodium Level 146 mmol/L (136-145) Potassium Level 4.1 mmol/L (3.5-5.1) Chloride Level 109 mmol/L (98-107) Carbon Dioxide Level 23 mmol/L (21-32) Anion Gap 14 (6-14) Blood Urea Nitrogen 10 mg/dL (7-20) Creatinine 1.0 mg/dL (0.6-1.0) Estimated GFR (Cockcroft-Gault) 53.0 Glucose Level 81 mg/dL (70-99) Calcium Level 10.2 mg/dL (8.5-10.1) Magnesium Level 1.5 mg/dL (1.8-2.4) Assessment and Plan Assessmemt and Plan Problems Medical Problems: (1) Failure to thrive Status: Acute (2) Sepsis Status: Acute Comment Review of Relevant I have reviewed the following items shirin (where applicable) has been applied. Medications: Current Medications Medications (Trade) Dose Ordered Sig/Morro Route PRN Reason Start Time Stop Time Status Last Admin Dose Admin Potassium Chloride 40 meq/ Sodium Chloride 1,020 ml @ 75 mls/hr [id number] IV 08/26/21 13:30 08/27/21 16:09 08/27/21 03:42 Albuterol/ Ipratropium (Duoneb) 3 ml Q4HRS W/A NEB 08/27/21 10:00 08/27/21 11:39 Methylprednisolone Sodium Succinate (SOLU-Medrol 40MG VIAL) 40 mg Q12HR IV 08/27/21 09:00 08/27/21 08:53 Justifications for Admission Other Justification DARIO ROWLAND MD Aug 27, 2021 13:20
[2021-08-27 15:00] VITALS: BP 107/67
[2021-08-27 18:09] LABS: KAPPA FREE 86.7 mg/L (3.3-19.4); KAPPA LAMBDA RATIO 1.43 (0.26-1.65); LAMBDA FREE 60.8 mg/L (5.7-26.3)
[2021-08-27 19:00] VITALS: BP_SYST 110; BP_SYST 129; BP_DIAS 74; BP_DIAS 99
[2021-08-27] MEDS: ATORVASTATIN CALCIUM 20 MG TABLET PO SCH (21:00)
[2021-08-27 23:09] VITALS: BP 103/62
[2021-08-28] MEDS: PIPERACILLIN/TAZOBACTAM 2.25 GM in IV NORMAL SALINE 50ML 50 ML IV SCH ×2 (00:25→05:18)
[2021-08-28 03:39] VITALS: BP 114/61
[2021-08-28] MEDS: LEVOTHYROXINE 75 MCG TABLET PO SCH (05:19)
[2021-08-28] MEDS: HEPARIN for SUB-Q USE 5,000 UNIT/ML VIAL. SQ SCH (05:23)
--- NOTE | 2021-08-28 06:11 | PDOC ---
PULMONARY PROGRESS NOTES DATE: 08/28/21 TIME: 06:09 Subjective weak on 02 appears comfortable Vitals Vital Signs Date Time Temp Pulse Resp B/P (MAP) Pulse Ox O2 Delivery O2 Flow Rate FiO2 08/28/21 03:39 97.6 107 20 114/61 (78) 96 Nasal Cannula 97.6 08/27/21 20:09 5.0 ROS: No Nausea, No Chest Pain, No Abdominal Pain, No Increase Cough General: Confused Lungs: Other (r diminished bs l cta) Cardiovascular: S1, S2 Abdomen: Soft, Non-tender Neuro Exam: Alert Extremities: No Edema Skin: Warm Labs Laboratory Tests Test 08/26/21 06:50 08/27/21 07:35 Sodium Level 150 mmol/L (136-145) 146 mmol/L (136-145) Potassium Level 3.2 mmol/L (3.5-5.1) 4.1 mmol/L (3.5-5.1) Chloride Level 111 mmol/L (98-107) 109 mmol/L (98-107) Carbon Dioxide Level 28 mmol/L (21-32) 23 mmol/L (21-32) Anion Gap 11 (6-14) 14 (6-14) Blood Urea Nitrogen 11 mg/dL (7-20) 10 mg/dL (7-20) Creatinine 0.8 mg/dL (0.6-1.0) 1.0 mg/dL (0.6-1.0) Estimated GFR (Cockcroft-Gault) 68.5 53.0 Glucose Level 86 mg/dL (70-99) 81 mg/dL (70-99) Calcium Level 10.0 mg/dL (8.5-10.1) 10.2 mg/dL (8.5-10.1) Magnesium Level 1.5 mg/dL (1.8-2.4) Laboratory Tests Test 08/27/21 07:35 Sodium Level 146 mmol/L (136-145) Potassium Level 4.1 mmol/L (3.5-5.1) Chloride Level 109 mmol/L (98-107) Carbon Dioxide Level 23 mmol/L (21-32) Anion Gap 14 (6-14) Blood Urea Nitrogen 10 mg/dL (7-20) Creatinine 1.0 mg/dL (0.6-1.0) Estimated GFR (Cockcroft-Gault) 53.0 Glucose Level 81 mg/dL (70-99) Calcium Level 10.2 mg/dL (8.5-10.1) Magnesium Level 1.5 mg/dL (1.8-2.4) Medications Active Scripts Medications Dose Route/Sig Max Daily Dose Days Date Category Prednisone 20 Mg Tablet 40 Mg PO DAILY 3 05/04/21 Rx Atorvastatin Calcium 20 Mg Tablet 20 Mg PO QHS 05/04/21 Rx Metoprolol Succinate ( Xl ) (Metoprolol Succinate) 25 Mg Tab.er.24h 1 Tab PO BID 04/29/21 Reported Clonidine Hcl 0.1 Mg Tablet 0.1 Mg PO DAILY PRN 04/24/21 Reported Melo-24 (Theophylline Anhydrous) 400 Mg Cap.er.24h 1 Cap PO DAILY 30 04/24/21 Reported Isosorbide Mononitrate Er (Isosorbide Mononitrate) 30 Mg Tab.er.24h 1 Tab PO DAILY 04/24/21 Reported Potassium Chloride (Potassium Chloride) 10 Meq Tab.sr.24h 10 Meq PO DAILY 04/24/21 Reported Acetaminophen 500 Mg Tablet 500 Mg PO PRN Q6HRS PRN 30 04/27/20 Rx Mirtazapine 15 Mg Tablet 15 Mg PO DAILY 04/21/20 Reported Clopidogrel (Clopidogrel Bisulfate) 75 Mg Tablet 75 Mg PO DAILYWBKFT 30 04/25/19 Rx Super B Maxi Complex Caplet (Vitamin B Complex/Folic Acid) 0.4 Mg Tablet 0.4 Mg PO DAILY 04/22/19 Reported Ferrous Sulfate 325 Mg Tablet 325 Mg PO DAILY 05/31/17 Reported Vitamin D (Cholecalciferol (Vitamin D3)) 2,000 Unit Capsule 2,000 Unit PO BID 05/31/17 Reported Colace (Docusate Sodium) 100 Mg Capsule 100 Mg PO HS 03/05/17 Reported Nexium Capsule (Esomeprazole Magnesium) 40 Mg Capsule.dr 1 Cap PO DAILY 05/08/16 Reported Levothyroxine Sodium 75 Mcg Tablet 1 Tab PO DAILY 05/08/16 Reported Gabapentin (Gabapentin) 100 Mg Capsule 200 Mg PO HS 05/08/[address] 1. New complete consolidation of the right lung with volume loss, likely reflecting complete atelectasis/collapse of the lung. There is a cut off appearance of the bronchus intermedius with opacification of the right upper lobe bronchus and bronchus intermedius, likely due to mucous plugging. Occlusion due to tumor less likely given the change from 08/23/2021 but not entirely excluded. 2. The known right upper lobe mass is difficult to evaluate due to complete consolidation of the surrounding right lung. 3. New small bilateral pleural effusions. Mild left basilar atelectasis. 4. The 7 mm groundglass opacity in the left lower lobe is not visualized and may be obscured. 5. Unchanged thoracic compression fractures. Impression . IMPRESSION: 1. Acute on chronic hypoxemic respiratory failure. 2. Acute exacerbation of chronic obstructive pulmonary disease. 3. Abnormal x-ray, possible progression of her malignancy, questionable pneumonia. now w r lung atelectasis 4. Acute encephalopathy, suspect multifactorial in nature. 5. Squamous cell carcinoma, status post chemoradiation, diagnosed in 2016. 6. Fever. 7. Sepsis. 8. Hypernatremia. 9. Severe protein malnutrition, present upon admission. 10. Coronary artery disease with previous stent placement. 11. Hypercalcemia Plan . Updated 08/28 [address] reviewed atelectasis and mucus plugging BD q 4hrs cont ICS cont steroid start pd and v of r lung (chest physical therapy) not started yet discussed w rt r lung up most times discussed w rn fu cxr in am overall prognosis poor Updated 08/27 02 titration Calcium has improved ct reviewed atelectasis and mucus plugging increase BD to q 4hrs cont ICS add steroid start pd and v of r lung (chest physical therapy) fu cxr on sunday overall prognosis poor Updated 08/26 Calcium has improved Discussed with daughter at the bedside continue current care Obtain CT chest Recommendations from oncology Recommendations: -Recommend SPEP and free light chain assay to exclude plasma cell dyscrasia -Recommend CT chest without contrast to evaluate for recurrence of pulmonary malignancy and evaluate lung opacities that were described on recent chest x-ray -Follow-up results of hypercalcemia work-up ordered by Dr. Singh -Management of acute respiratory failure per pulmonology service -Discussed with patient and family that given the patient's significant physical decline and frail functional status, she is unlikely to make significant improvements in health and functional status. Discussed the option of hospice versus completing hypercalcemia work-up. They are interested in completing evaluation for hypercalcemia work-up before discussing goals of care. -Continue supportive care and consider hospice based on clinical course. We will follow up to review results of CT chest Updated 08/25 Discussed with daughter at the bedside Hypercalcemia being treated by nephrology Discussed with Dr. Singh, medical oncology consulted Patient DNR STEF SINGH MD Aug 28, 2021 06:11
--- NOTE | 2021-08-28 07:42 | NUR ---
CALL PLACE TO DR. ROWLAND TO INFORM HIM OF THE PATIENT EXPIRING, CALL PLACED TO [facility], QUESTIONS ANSWERED AND CHARTED, WILL PREPARE PATIENTS' BODY FOR THE [place] AFTER FAMILY MEMBERS LEAVE.
--- NOTE | 2021-08-28 08:06 | NUR ---
Around 0738 the tele-monitor stated that the pt. was in asystole. Went to go check on pt. and the aide was in there getting vitals. Pt. was not breathing and had no heartbeat. Notified Uzma KEENE and she assessed pt. as well. Called Shelton (son) and left a message. Called Itzel (dtr) and notified her and she stated that she is on the way. Itzel stated that she did not want anyone else notified and I stated that I left a msg w/ Shelton b/c he was listed first. She got upset and said that she was the DPOA. I apologized again and stated that I will show her the facesheet. Jennifer was fine this am. Dr Tam had just seen her around 0615 this AM.
--- NOTE | 2021-08-28 10:46 | PDOC3 ---
Discharge Summary Visit Information Date of Admission: Aug 23, 2021 Date of Discharge: Aug 28, 2021 Final Diagnosis Acute respiratory failure with hypoxia - likely COPD exacerbation and pneumonia, possibly RUL around her mass. Will treat for both. rapid influenza and rapid SARS-CoV-2 negative. Acute encephalopathy - metabolic due to hypoxia, hypercalcemia, will continue to altered mental status. No focal neurologic deficits. Her daughter does note she has had significant cognitive decline over the last 3 years but no formal diagnosis of dementia Hypercalcemia - possibly due to dehydration/free water access issue vs hypercalcemia of malignancy. 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 No recent PET scan available RENETTA on CKD - likely vasomotor nephropathy Sepsis - due to pneumonia, likely aspiration, given empiric fluids and antibiotics Hypernatremia - Likely nutrititional, has not been eating Abnormal weight loss - severe protein calorie malnutrition. Has not been eating, likely cachexia from cancer and COPD H/o GOUT - check uric acid level GERD - on PPI HTN - BP low currently. On metoprolol at home, will hold for now Hypothyroidism - frequently does not take her doses, TSH low, likely needs dose reduction Prior DVT - off anticoagulation due to concern for falls CAD s/p stenting - on cardiac meds Osteoporosis. Previously noted likely chronic. COPD -severe end-stage on chronic 5 L of oxygen at home with significant emphysematous changes of lungs. Currently in acute exacerbation keep O2 between 89 to 92% and give aggressive nebulizer treatments. Pulmonology consulted. Severe protein malnutrition, present upon admission. Problems Medical Problems: (1) Failure to thrive Status: Acute (2) Sepsis Status: Acute Brief Hospital Course Allergies Allergies Coded Allergies Type Severity Reaction Last Updated Verified aspirin Allergy Intermediate 05/08/16 Yes codeine Allergy Intermediate 05/08/16 Yes methocarbamol Allergy Intermediate 05/08/16 Yes morphine Allergy Intermediate 05/08/16 Yes oxycodone Allergy Intermediate 05/08/16 Yes sulfamethoxazole Allergy Intermediate 05/08/16 Yes tramadol Allergy Intermediate 05/08/16 Yes trimethoprim Allergy Intermediate 05/08/16 Yes ibuprofen Allergy Mild 04/22/20 Yes Vital Signs Vital Signs Date Time Temp Pulse Resp B/P (MAP) Pulse Ox O2 Delivery O2 Flow Rate FiO2 08/28/21 03:39 97.6 107 20 114/61 (78) 96 Nasal Cannula 97.6 08/27/21 20:09 5.0 Lab Results Laboratory Tests Test 08/27/21 07:35 Sodium Level 146 mmol/L (136-145) Potassium Level 4.1 mmol/L (3.5-5.1) Chloride Level 109 mmol/L (98-107) Carbon Dioxide Level 23 mmol/L (21-32) Anion Gap 14 (6-14) Blood Urea Nitrogen 10 mg/dL (7-20) Creatinine 1.0 mg/dL (0.6-1.0) Estimated GFR (Cockcroft-Gault) 53.0 Glucose Level 81 mg/dL (70-99) Calcium Level 10.2 mg/dL (8.5-10.1) Magnesium Level 1.5 mg/dL (1.8-2.4) Brief Hospital Course Ms. Chauhan is a 81 old year old female w/ PMHx sqaumous cell lung cancer of right lung, GOUT, GERD, HTN, hypothyroidism, prior DVT, CAD s/p stenting coming to ED via EMS for worsening dyspnea. She lives at home and recently 2 weeks ago her daughter noted she could no longer live alone she has not been eating well for the last 4 days more confused. She is confused but moving all 4 extremities will follow commands. Not oriented to location or month day or year. Head CT with no abnormalities, chest radiograph with significant right-sided changes. Labs with WBC 15.1, Hb 10.2, platelets 333, INR 1.3, NA 145, K4.6, BUN 21, CR 0.9, glucose 94, calcium 11.9, magnesium 1.7, albumin 2, LFTs otherwise within normal laboratory limits, troponin 0, ammonia negative, NT proBNP 1636, lactic acid 1.1, urine drug screen negative, urinalysis bland, rapid influenza negative, rapid COVID-19 negative She is not vaccinated against Covid her daughter notes this is because she thinks her mother is too high risk to have the COVID-19 vaccine Discharge Information Condition at Discharge: / Scheduled Atorvastatin Calcium (Atorvastatin Calcium) 20 Mg Tablet, 20 MG PO QHS for CAD, #30 Ref 2 Prescribed by: АЛЕКСАНДР LEAVITT MD on 05/04/21 1145 Last Action: Continued on 08/24/21 1506 by DORA WOODSON MD Cholecalciferol (Vitamin D3) (Vitamin D) 2,000 Unit Capsule, 2,000 UNIT PO BID for supplement, (Reported) Entered as Reported by: SHAY SAL on 05/31/17 1220 Last Action: Converted on 08/24/21 150 by DORA WOODSON MD Clopidogrel Bisulfate (Clopidogrel) 75 Mg Tablet, 75 MG PO DAILYWBKFT for stent for 30 Days, #30 Ref 3 Prescribed by: ARGELIA QUIROZ on 04/25/19 1142 Last Action: Continued on 08/24/211505 by DORA WOODSON MD Docusate Sodium (Colace) 100 Mg Capsule, 100 MG PO HS for constipation- narcotics, (Reported) Entered as Reported by: SHAY SAL on 03/05/17 1326 Last Action: Reviewed on 08/24/211056 by NANDINI CESPEDES Esomeprazole Magnesium (Nexium Capsule) 40 Mg Capsule.dr, 1 CAP PO DAILY for GERD, (Reported) Entered as Reported by: MARITZA FELIPE on 05/08/16720 Last Action: Converted on 08/24/211505 by DORA WOODSON MD Ferrous Sulfate (Ferrous Sulfate) 325 Mg Tablet, 325 MG PO DAILY for anemia, (Reported) Entered as Reported by: SHAY SAL on 05/31/17 1220 Last Action: Reviewed on 08/24/21 105 by NANDINI CESPEDES Gabapentin (Gabapentin ) 100 Mg Capsule, 200 MG PO HS for neuropathy, (Reported) Entered as Reported by: MARITZA FELIPE on 05/08/16718 Last Action: Reviewed on 08/24/21 1057 by NANDINI CESPEDES Isosorbide Mononitrate (Isosorbide Mononitrate Er) 30 Mg Tab.er.24h, 1 TAB PO DAILY for Angina, #30 Ref 5 (Reported) Entered as Reported by: EDIN NELSON on 04/24/21 0955 Last Action: Continued on 08/24/211505 by DORA WOODSON MD Levothyroxine Sodium (Levothyroxine Sodium) 75 Mcg Tablet, 1 TAB PO DAILY for hypothyroidism, (Reported) Entered as Reported by: MARITZA FELIPE on 7/11/16 0721 Last Action: Continued on 08/24/211505 by DORA WOODSON MD Metoprolol Succinate (Metoprolol Succinate ( Xl )) 25 Mg Tab.er.24h, 1 TAB PO BID for blood pressure, #30 Ref 5 (Reported) Entered as Reported by: Storm Jain on 04/29/21 1313 Last Action: Continued on 08/24/211505 by DORA WOODSON MD Mirtazapine (Mirtazapine) 15 Mg Tablet, 15 MG PO DAILY for depression, (Reported) Entered as Reported by: MAGALI CHINO RN on 04/21/20 0458 Last Action: Continued on 08/24/211505 by DORA WOODSON MD Potassium Chloride (Potassium Chloride ) 10 Meq Tab.sr.24h, 10 MEQ PO DAILY for SUPPLEMENT, (Reported) Entered as Reported by: EDIN NELSON on 04/24/21954 Last Action: Reviewed on 08/24/211056 by NANDINI CESPEDES Theophylline Anhydrous (Melo-24) 400 Mg Cap.er.24h, 1 CAP PO DAILY for Asthma/Bronchitis for 30 Days, #30 Ref 0 (Reported) Entered as Reported by: EDIN NELSON on 04/24/21954 Last Action: Converted on 08/24/211505 by DORA WOODSON MD Vitamin B Complex/Folic Acid (Super B Maxi Complex Caplet) 0.4 Mg Tablet, 0.4 MG PO DAILY for supplement, (Reported) Entered as Reported by: BELKIS BRIONES on 04/22/19 0747 Last Action: Reviewed on 08/24/211056 by NANDINI CESPEDES Scheduled PRN Acetaminophen (Acetaminophen) 500 Mg Tablet, 500 MG PO PRN Q6HRS PRN for MILD PAIN / TEMP > 100.3'F for 30 Days, #60 Prescribed by: BUCK NUNES MD on 04/27/20 1343 Last Action: Reviewed on 08/24/211056 by NANDINI CESPEDES Clonidine Hcl (Clonidine Hcl) 0.1 Mg Tablet, 0.1 MG PO DAILY PRN for HYPERTENSION, (Reported) Entered as Reported by: EDIN NELSON on 04/24/21954 Last Action: Reviewed on 08/24/211056 by NANDINI CESPEDES Patient Instructions Patient Instructions AM of 737 the tele-monitor stated that the pt. was in asystole. Dr Tam had just seen her around 0615 this AM. Justicifation of Admission Dx: Justifications for Admission: Justification of Admission Dx: Comment: DARIO ROWLAND MD Aug 28, 2021 10:46
[2021-08-29 18:09] LABS: ALBUM 2.2 g/dL (2.9-4.4); ALPHA 1 0.4 g/dL (0.0-0.4); ALPHA 2 0.9 g/dL (0.4-1.0); BETA 0.8 g/dL (0.7-1.3); GAMMA 1.4 g/dL (0.4-1.8); PROTEIN TOTAL 5.7 g/dL (6.0-8.5); SPEP AG RATIO 0.6 (0.7-1.7)
== END 2021-08-28 07:40 | DRG 871 ==
LOC: ER 21:03 → 5 SOUTH 23:25
PROVIDERS: ADMIT Internal Medicine; ATTEND Internal Medicine
DX: A41.9 Sepsis, unspecified organism (principal); G93.41 Metabolic encephalopathy; E43 Unspecified severe protein-calorie malnutrition; J96.21 Acute and chronic respiratory failure with hypoxia; N17.0 Acute kidney failure with tubular necrosis; J69.0 Pneumonitis due to inhalation of food and vomit; C34.90 Malignant neoplasm of unspecified part of unspecified bronchus or lung; E87.0 Hyperosmolality and hypernatremia; I13.0 Hypertensive heart and chronic kidney disease with heart failure and stage 1 through stage 4 chronic kidney disease, or unspecified chronic kidney disease; R64 Cachexia; Z68.1 Body mass index [BMI] 19.9 or less, adult; D64.9 Anemia, unspecified; E03.9 Hypothyroidism, unspecified; E78.5 Hyperlipidemia, unspecified; E83.52 Hypercalcemia; F32.A Depression, unspecified; G62.9 Polyneuropathy, unspecified; H91.90 Unspecified hearing loss, unspecified ear; I25.119 Atherosclerotic heart disease of native coronary artery with unspecified angina pectoris; I46.9 Cardiac arrest, cause unspecified; I50.9 Heart failure, unspecified; J43.9 Emphysema, unspecified; K21.9 Gastro-esophageal reflux disease without esophagitis; K59.03 Drug induced constipation; M10.9 Gout, unspecified; M81.0 Age-related osteoporosis without current pathological fracture; N18.9 Chronic kidney disease, unspecified; R32 Unspecified urinary incontinence; R62.7 Adult failure to thrive; T40.605A Adverse effect of unspecified narcotics, initial encounter; Z20.822 Contact with and (suspected) exposure to COVID-19; Z66 Do not resuscitate; Z74.1 Need for assistance with personal care; Z85.118 Personal history of other malignant neoplasm of bronchus and lung; Z86.718 Personal history of other venous thrombosis and embolism; Z87.891 Personal history of nicotine dependence; Z90.49 Acquired absence of other specified parts of digestive tract; Z90.710 Acquired absence of both cervix and uterus; Z92.21 Personal history of antineoplastic chemotherapy; Z92.3 Personal history of irradiation; Z95.5 Presence of coronary angioplasty implant and graft; K57.90 Diverticulosis of intestine, part unspecified, without perforation or abscess without bleeding; M19.90 Unspecified osteoarthritis, unspecified site; Z88.8 Allergy status to other drugs, medicaments and biological substances
CPT/HCPCS: 36415; 70450; 71045; 71250; 80048; 80069; 80076; 80307; 80329; 81001; 82140; 82550; 83520; 83540; 83550; 83605; 83735; 83880; 83970; 84165; 84443; 84484; 85007; 85025; 85610; 85730; 87040; 87426; 87804; 93005; 94640; 94760; 96361; 96365; 96368; J0630; J0780; J1644; J2405; J2543; J2920; J3480; J3490; J7030; J7120; P9612; U0003; U0005; 92526-GN; 92610-GN; 97110-GP; 97530-GP; 99285-25; G0378; G0480; J7626